=== PATIENT | male | born 1940 | race Native Hawaiian/Other Pacific Islander ===

== ENCOUNTER 2017-06-12 12:07 | Observation (INO) | payer MEDICAID ==
[2017-06-12 12:20] VITALS: BMI 24.3
[2017-06-12 13:15] LABS: BASO # 0.1 K/uL (0.0-0.2); BASO % 1.1 % (0.0-2.0); EOS # 0.3 K/uL (0.0-0.7); EOS % 2.8 % (0.0-4.0); LYMPH # 1.3 K/uL (1.0-4.3); LYMPH % 12.3 % (20.0-40.0); MEAN CORPUSCULAR HEMOGLOBIN 32.1 pg (27.0-31.0); MEAN CORPUSCULAR HGB CONC 34.5 g/dL (33.0-37.0); MEAN PLATELET VOLUME 8.6 fL (7.2-11.7); MONO # 1.2 K/uL (0.0-0.8); MONO % 11.3 % (0.0-10.0); NEUT # 7.9 K/uL (1.8-7.0); NEUT % 72.5 % (50.0-75.0); RBC 3.12 Mil/uL (4.40-5.90); RED CELL DISTRIBUTION WIDTH 16.1 % (11.5-14.5); WHITE BLOOD COUNT 10.9 K/uL (4.8-10.8)
[2017-06-12 13:20] LABS: MEAN CELL VOLUME 93.1 fL (80.0-94.0)
[2017-06-12 13:23] LABS: PROTHROMBIN TIME 10.8 SECONDS (9.7-12.2)
[2017-06-12 13:43] LABS: TROPONIN I 0.017 ng/mL (0.00-0.120)
[2017-06-12 13:44] LABS: ALBUMIN 3.5 g/dL (3.5-5.0); CALCIUM 8.9 mg/dl (8.6-10.4)
--- NOTE | 2017-06-12 14:07 | CT ---
PROCEDURE: CT HEAD WITHOUT CONTRAST. HISTORY: Dizziness COMPARISON: None available. TECHNIQUE: Axial computed tomography images were obtained through the head/brain without intravenous contrast. Radiation dose: Total exam DLP = 871.48 mGy-cm. This CT exam was performed using one or more of the following dose reduction techniques: Automated exposure control, adjustment of the mA and/or kV according to patient size, and/or use of iterative reconstruction technique. FINDINGS: HEMORRHAGE: No intracranial hemorrhage. 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 There are severe chronic microangiopathic changes. There is no mass, mass effect or abnormal extra-axial fluid collection.There are coarse atherosclerotic calcifications in the cavernous carotid an vertebral arteries. VENTRICLES: There is mild age-related global parenchymal volume loss and proportionate enlargement of the ventricles and cortical sulci. CALVARIUM: The skull base and calvarium are normal. PARANASAL SINUSES: Predominantly clear. MASTOID AIR CELLS: Predominantly clear. OTHER FINDINGS: None. IMPRESSION: No acute intracranial abnormality. 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
--- NOTE | 2017-06-12 14:12 | RAD ---
PROCEDURE: CHEST RADIOGRAPH, 1 VIEW HISTORY: Chest pain COMPARISON: 08/29/2016. FINDINGS: LUNGS: There is mild pulmonary venous congestion. No focal consolidation. PLEURA: No pneumothorax or pleural fluid seen. CARDIOVASCULAR: There is mild cardiomegaly. Status post CABG. OSSEOUS STRUCTURES: No significant abnormalities. VISUALIZED UPPER ABDOMEN: Normal. OTHER FINDINGS: None. IMPRESSION: Mild cardiomegaly and pulmonary venous congestion. No active pulmonary disease.
--- NOTE | 2017-06-12 14:15 | C.PDOC ---
History Of Present Illness 76 y/o male, w/PMhx of diabetes, HTN, and chronic kidney disease, presents to the ER with family for evaluation of a syncopal episode which occurred while he was eating breakfast in the morning today. Patient states that he is undergoing peritoneal dialysis exchanges. Patient reports that he has SOB. Denies having CP , seizure -like activity, and abdominal pain. Time Seen by Provider: 06/12/17 12:24 Chief Complaint (Nursing): Syncope History Per: Patient History/Exam Limitations: no limitations Onset/Duration Of Symptoms: Hrs Current Symptoms Are (Timing): Gone Severity: Moderate Past Medical History Reviewed: Historical Data, Nursing Documentation, Vital Signs Vital Signs: Last Vital Signs Temp 99 F 06/12/17 12:28 Pulse 68 06/12/17 16:09 Resp 18 06/12/17 16:09 BP 138/64 06/12/17 16:09 Pulse Ox 98 06/12/17 17:46 - Medical History PMH: Diabetes, Fractures (CASTED NO OR), HTN, Hypercholesterolemia, Hypothyroidism, Peripheral Edema, Chronic Kidney Disease (STAGE 4) Surgical History: CABG - [facility] Procedures CYSTOSCOPY NEC (10/13/14) INSERT INDWELLING CATH (10/06/14) TRANSURETHRAL PROSTATECTOMY ([place]) (10/13/14) Family History: States: No Known Family Hx - Social History Hx Tobacco Use: No Hx Alcohol Use: No Hx Substance Use: No - Immunization History Hx Tetanus Toxoid Vaccination: Yes Hx Influenza Vaccination: No Hx Pneumococcal Vaccination: No Review Of Systems Except As Marked, All Systems Reviewed And Found Negative. Constitutional: Negative for: Fever, Chills Gastrointestinal: Negative for: Abdominal Pain Neurological: Positive for: Other (syncope) Physical Exam - Physical Exam Appears: Non-toxic, No Acute Distress Skin: Normal Color, Warm, Dry Head: Atraumatic, Normacephalic Eye(s): bilateral: Normal Inspection Nose: Normal Oral Mucosa: Moist Neck: Supple Chest: Symmetrical Cardiovascular: Rhythm Regular Respiratory: Normal Breath Sounds, No Rales, No Rhonchi, No Wheezing Gastrointestinal/Abdominal: Normal Exam, Soft, No Tenderness, No Guarding, No Rebound, Other (peritoneal catheter in abdominal wall) Neurological/Psych: Oriented x3, Normal Speech ED Course And Treatment - Laboratory Results Result Diagrams: 06/12/17 13:10 06/12/17 13:10 ECG: Interpreted By Me, Viewed By Me ECG Rhythm: Sinus Rhythm Interpretation Of ECG: NSR with 1st degree AV Block, PVC, and RBBB Rate From EC O2 Sat by Pulse Oximetry: 98 (RA) Pulse Ox Interpretation: Normal - Other Rad CXR X-Ray: Viewed By Me, Read By Radiologist Interpretation: PROCEDURE: CHEST RADIOGRAPH, 1 VIEW. HISTORY: Chest pain. COMPARISON: 08/29/2016. FINDINGS: LUNGS: There is mild pulmonary venous congestion. No focal consolidation. PLEURA: No pneumothorax or pleural fluid seen. CARDIOVASCULAR: There is mild cardiomegaly. Status post CABG. OSSEOUS STRUCTURES: No significant abnormalities. VISUALIZED UPPER ABDOMEN: Normal. OTHER FINDINGS: None. IMPRESSION: Mild cardiomegaly and pulmonary venous congestion. No active pulmonary disease. - CT Scan/US CT- Head Other Rad Studies (CT/US): Read By Radiologist, Radiology Report Reviewed CT/US Interpretation: PROCEDURE: CT HEAD WITHOUT CONTRAST. HISTORY: Dizziness. COMPARISON: None available. TECHNIQUE: Axial computed tomography images were obtained through the head/brain without intravenous contrast. Radiation dose: Total exam DLP = 871.48 mGy-cm. This CT exam was performed using one or more of the following dose reduction techniques: Automated exposure control, adjustment of the mA and/or kV according to patient size, and/ or use of iterative reconstruction technique. FINDINGS: HEMORRHAGE: No intracranial hemorrhage. 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 There are severe chronic microangiopathic changes. There is no mass, mass effect or abnormal extra-axial fluid collection.There are coarse atherosclerotic calcifications in the cavernous carotid an vertebral arteries. VENTRICLES: There is mild age-related global parenchymal volume loss and proportionate enlargement of the ventricles and cortical sulci. CALVARIUM: The skull base and calvarium are normal. PARANASAL SINUSES: Predominantly clear. MASTOID AIR CELLS: Predominantly clear. OTHER FINDINGS: None. IMPRESSION: No acute intracranial abnormality. Severe chronic microangiopathic changes and mild age-related global parenchymal volume loss. 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 Medical Decision Making Medical Decision Making: Assessment: Syncope Plan: --Labs --EKG --UA --CT- Head --CXR Updates: Case discussed with Dr. Elizabeth. Patient has been admitted to Telemetry Observation for syncope under Dr. Elizabeth's service. Disposition Discussed With : Eren Elizabeth Doctor Will See Patient In The: Hospital Counseled Patient/Family Regarding: Studies Performed, Diagnosis - Disposition Disposition: HOSPITALIZED Disposition Time: 14:15 Condition: FAIR - Clinical Impression Clinical Impression: Syncope - Scribe Statement The provider has reviewed the documentation as recorded by the Scribe Sabra Ferrell Provider Attestation: All medical record entries made by the Scribe were at my direction and personally dictated by me. I have reviewed the chart and agree that the record accurately reflects my personal performance of the history, physical exam, medical decision making, and the department course for this patient. I have also personally directed, reviewed, and agree with the discharge instructions and disposition.
[2017-06-12 18:20] VITALS: BP 162/71; PULSE 73; RESP 20; TEMP 98.1; O2SAT 97
--- NOTE | 2017-06-12 23:08 | CP.PCM.DIS ---
Provider - Provider Date of Admission: 06/12/17 14:14 Attending physician: Eren Elizabeth MD Hospital Course - Lab Results Lab Results: Most Recent Lab Values WBC 10.9 K/uL (4.8-10.8) H 06/12/17 13:10 RBC 3.12 Mil/uL (4.40-5.90) L 06/12/17 13:10 Hgb 10.0 g/dL (12.0-18.0) L 06/12/17 13:10 Hct 29.0 % (35.0-51.0) L 06/12/17 13:10 MCV 93.1 fL (80.0-94.0) D 06/12/17 13:10 MCH 32.1 pg (27.0-31.0) H 06/12/17 13:10 MCHC 34.5 g/dL (33.0-37.0) 06/12/17 13:10 RDW 16.1 % (11.5-14.5) H 06/12/17 13:10 Plt Count 175 K/uL (130-400) 06/12/17 13:10 MPV 8.6 fL (7.2-11.7) 06/12/17 13:10 Neut % (Auto) 72.5 % (50.0-75.0) 06/12/17 13:10 Lymph % (Auto) 12.3 % (20.0-40.0) L 06/12/17 13:10 [place] % (Auto) 11.3 % (0.0-10.0) H 06/12/17 13:10 Eos % (Auto) 2.8 % (0.0-4.0) 06/12/17 13:10 Baso % (Auto) 1.1 % (0.0-2.0) 06/12/17 13:10 Neut # (Auto) 7.9 K/uL (1.8-7.0) H 06/12/17 13:10 Lymph # (Auto) 1.3 K/uL (1.0-4.3) 06/12/17 13:10 [place] # (Auto) 1.2 K/uL (0.0-0.8) H 06/12/17 13:10 Eos # (Auto) 0.3 K/uL (0.0-0.7) 06/12/17 13:10 Baso # (Auto) 0.1 K/uL (0.0-0.2) 06/12/17 13:10 PT 10.8 SECONDS (9.7-12.2) 06/12/17 13:10 INR 1.0 06/12/17 13:10 APTT 30 SECONDS (21-34) 06/12/17 13:10 Sodium 133 mmol/L (132-148) 06/12/17 13:10 Potassium 3.5 mmol/L (3.6-5.2) L 06/12/17 13:10 Chloride 91 mmol/L (98-107) L 06/12/17 13:10 Carbon Dioxide 24 mmol/L (22-30) 06/12/17 13:10 Anion Gap 22 (10-20) H 06/12/17 13:10 BUN 100 mg/dL (9-20) H* D 06/12/17 13:10 Creatinine 10.0 mg/dL (0.8-1.5) H* 06/12/17 13:10 Est GFR ( Amer) 6 06/12/17 13:10 Est GFR (Non-Af Amer) 5 06/12/17 13:10 POC Glucose (mg/dL) 138 mg/dL (65-110) H 06/12/17 12:26 Random Glucose 136 mg/dL (75-110) H 06/12/17 13:10 Calcium 8.9 mg/dl (8.6-10.4) 06/12/17 13:10 Total Bilirubin 0.6 mg/dL (0.2-1.3) 06/12/17 13:10 AST 29 U/L (17-59) 06/12/17 13:10 ALT 23 U/L (21-72) 06/12/17 13:10 Alkaline Phosphatase 92 U/L (38-126) 06/12/17 13:10 Troponin I 0.0170 ng/mL (0.00-0.120) 06/12/17 13:10 NT-Pro-B Natriuret Pep 5290 pg/mL (0-900) H 06/12/17 13:10 Total Protein 7.1 g/dL (6.3-8.3) 06/12/17 13:10 Albumin 3.5 g/dL (3.5-5.0) 06/12/17 13:10 Globulin 3.5 gm/dL (2.2-3.9) 06/12/17 13:10 Albumin/Globulin Ratio 1.0 (1.0-2.1) 06/12/17 13:10 Lipase 454 U/L (23-300) H 06/12/17 13:10 Discharge Plan - Follow Up Plan Condition: FAIR Disposition: HOME/ ROUTINE Instructions: Syncope (Fainting) Additional Instructions: Seen by Dr. Elizabeth and cleared to go home. Please follow up with primary physician.
--- NOTE | 2017-06-12 23:08 | CP.PCM.HP ---
Past Patient History - Past Medical History & Family History Past Medical History?: Yes - Past Social History Smoking Status: Never Smoked - CARDIAC Hx Hypercholesterolemia: Yes Hx Hypertension: Yes Hx Peripheral Edema: Yes - HEENT Hx HEENT Problems: Yes Hx Cataracts: Yes - RENAL Hx Chronic Kidney Disease: Yes (STAGE 4) - ENDOCRINE/METABOLIC Hx Hypothyroidism: Yes - MUSCULOSKELETAL/RHEUMATOLOGICAL Hx Fractures: Yes (CASTED NO OR) - GENITOURINARY/GYNECOLOGICAL Hx Genitourinary Disorders: Yes Hx Prostate Problems: Yes (BPH) Other/Comment: URINARY RETENTION - PSYCHIATRIC Hx Substance Use: No - SURGICAL HISTORY Hx Coronary Artery Bypass Graft: Yes - ANESTHESIA Hx Anesthesia: Yes Hx Anesthesia Reactions: No Hx Malignant Hyperthermia: No Meds Allergies/Adverse Reactions: Allergies Allergy/AdvReac Type Severity Reaction Status Date / Time No Known Allergies Allergy Verified 09/30/14 11:17 Results - Vital Signs Recent Vital Signs: Last Vital Signs Temp 98.1 F 06/12/17 18:18 Pulse 73 06/12/17 18:18 Resp 20 06/12/17 18:18 BP 162/71 H 06/12/17 18:18 Pulse Ox 97 06/12/17 18:18 - Labs Result Diagrams: 06/12/17 13:10 06/12/17 13:10 Labs: Laboratory Results - last 24 hr 06/12/17 06/12/17 06/12/17 12:25 12:26 13:10 WBC 10.9 H RBC 3.12 L Hgb 10.0 L Hct 29.0 L MCV 93.1 D MCH 32.1 H MCHC 34.5 RDW 16.1 H Plt Count 175 MPV 8.6 Neut % (Auto) 72.5 Lymph % (Auto) 12.3 L [place] % (Auto) 11.3 H Eos % (Auto) 2.8 Baso % (Auto) 1.1 Neut # (Auto) 7.9 H Lymph # (Auto) 1.3 [place] # (Auto) 1.2 H Eos # (Auto) 0.3 Baso # (Auto) 0.1 PT INR APTT Sodium Potassium Chloride Carbon Dioxide Anion Gap BUN Creatinine Est GFR ( Amer) Est GFR (Non-Af Amer) POC Glucose (mg/dL) 124 H 138 H Random Glucose Calcium Total Bilirubin AST ALT Alkaline Phosphatase Troponin I NT-Pro-B Natriuret Pep Total Protein Albumin Globulin Albumin/Globulin Ratio Lipase 06/12/17 06/12/17 13:10 13:10 WBC RBC Hgb Hct MCV MCH MCHC RDW Plt Count MPV Neut % (Auto) Lymph % (Auto) [place] % (Auto) Eos % (Auto) Baso % (Auto) Neut # (Auto) Lymph # (Auto) [place] # (Auto) Eos # (Auto) Baso # (Auto) PT 10.8 INR 1.0 APTT 30 Sodium 133 Potassium 3.5 L Chloride 91 L Carbon Dioxide 24 Anion Gap 22 H BUN 100 H* D Creatinine 10.0 H* Est GFR ( Amer) 6 Est GFR (Non-Af Amer) 5 POC Glucose (mg/dL) Random Glucose 136 H Calcium 8.9 Total Bilirubin 0.6 AST 29 ALT 23 Alkaline Phosphatase 92 Troponin I 0.0170 NT-Pro-B Natriuret Pep 5290 H Total Protein 7.1 Albumin 3.5 Globulin 3.5 Albumin/Globulin Ratio 1.0 Lipase 454 H
--- NOTE | 2017-06-13 23:11 | CARD ---
APPROVED REPORT EKG Measurement Heart [id number] <Conclusion> Sinus rhythm with 1st degree AV block with premature atrial complexes in a pattern of bigeminy Possible Left atrial enlargement Right bundle branch block Inferior infarct, age undetermined cannot be excluded Abnormal ECG
== END 2017-06-12 19:44 | disposition home or self-care (01) ==
LOC: C.ER 12:07 → C.9E 14:14 → C.5S 14:14
PROVIDERS: ADMIT Internal Medicine; ATTEND Internal Medicine
DX: R55 Syncope and collapse (principal); E11.22 Type 2 diabetes mellitus with diabetic chronic kidney disease; E78.00 Pure hypercholesterolemia, unspecified; I12.9 Hypertensive chronic kidney disease with stage 1 through stage 4 chronic kidney disease, or unspecified chronic kidney disease; N18.4 Chronic kidney disease, stage 4 (severe); N40.1 Benign prostatic hyperplasia with lower urinary tract symptoms; R33.8 Other retention of urine; Z95.1 Presence of aortocoronary bypass graft; E03.9 Hypothyroidism, unspecified
CPT/HCPCS: 70450; 71045; 80053; 82948; 83690; 83880; 84484; 85025; 85610; 85730; 93005; 99285; G0378

== ENCOUNTER 2017-06-24 12:59 | Inpatient (IN) | payer MEDICAID ==
[2017-06-24 12:59] VITALS: BMI 24.3
[2017-06-24 14:11] LABS: BASO # 0.1 K/uL (0.0-0.2); BASO % 0.8 % (0.0-2.0); EOS # 0.3 K/uL (0.0-0.7); EOS % 2.4 % (0.0-4.0); HEMOGLOBIN 9.7 g/dL (12.0-18.0); LYMPH # 1.8 K/uL (1.0-4.3); LYMPH % 14.6 % (20.0-40.0); MEAN CELL VOLUME 92.8 fL (80.0-94.0); MEAN CORPUSCULAR HEMOGLOBIN 31.9 pg (27.0-31.0); MEAN CORPUSCULAR HGB CONC 34.3 g/dL (33.0-37.0); MEAN PLATELET VOLUME 8.3 fL (7.2-11.7); MONO # 1.6 K/uL (0.0-0.8); MONO % 12.9 % (0.0-10.0); NEUT # 8.4 K/uL (1.8-7.0); NEUT % 69.3 % (50.0-75.0); NRBC % 0.1 % (0.0-2.0); RBC 3.06 Mil/uL (4.40-5.90); RED CELL DISTRIBUTION WIDTH 16.1 % (11.5-14.5); WHITE BLOOD COUNT 12.1 K/uL (4.8-10.8)
[2017-06-24 14:21] LABS: INR 1.1; PROTHROMBIN TIME 11.7 SECONDS (9.7-12.2)
--- NOTE | 2017-06-24 14:25 | RAD ---
PROCEDURE: CHEST RADIOGRAPH, 1 VIEW HISTORY: chest pain COMPARISON: 06/12/2017 FINDINGS: LUNGS: Clear. PLEURA: No pneumothorax or pleural fluid seen. CARDIOVASCULAR: Normal heart size. Sternotomy wires. No congestive change. OSSEOUS STRUCTURES: No significant abnormalities. VISUALIZED UPPER ABDOMEN: Normal. OTHER FINDINGS: None. IMPRESSION: No active disease.
[2017-06-24 14:34] LABS: TROPONIN I 0.057 ng/mL (0.00-0.120)
[2017-06-24 14:36] LABS: ALBUMIN 3.5 g/dL (3.5-5.0); CALCIUM 9.1 mg/dl (8.6-10.4)
[2017-06-24] MEDS ORDERED: Glucagon Recombinant 1 mg Inj IV STA (14:36)
[2017-06-24] MEDS ORDERED: Glucagon Recombinant 1 mg Inj ONE (15:15)
--- NOTE | 2017-06-24 20:38 | CP.PCM.HP ---
History of Present Illness - History of Present Illness History of Present Illness: Chief complaint: weakness History present illness: 74-year-old male with history of diabetes, hypertension, hypercholesteremia, hypothyroidism, history of bronchitis, CAD, status post coronary artery bypass grafting came to the office for a routine visit. Pt was feeling weak for 2 days. recently hospitalized with syncope a week ago and at that time pt was having 1* av block. He came to office last week and c/o some weak and malaise and cough. But at that time vitals were normal in my office There was a change in the solution for HD recently But today this am pt was not able to get up from bed and felt very weak and daughter noticed that he was looking like very sick and called ambulance. In Ed noticed to have complete heart block and atropine and glucogan given but no response. pt takes coreg 6.25mg bid recently his bp also not controlled well and same as blood sugar. 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 meds noted Review of systems: Patient does not have any headache or visual symptoms, no chest pain c.o some cough and yellow mucous no fever no chills no nausea but poorly eating weakness mild sob noted no leg swelling still makes urine On examination: HEENT PERRLA, neck supple No thyromegaly was noted and no cervical adenopathy noted Chest bilateral good air entry, no wheezing or rales noted CVS regular heart sound, no murmur Abdomen soft and no organomegaly Extremities no pedal edema, no leg swelling, pedal pulses are good. 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 CBAG *3 CAD. History renal insufficiency on PD admitted with complete heart block seen by EP for pacemaker renal eval for PD DVT and GI prophylaxis spoke to daughter pt understands ICU monitoring and consult will f/u Present on Admission - Present on Admission Any Indicators Present on Admission: No History of DVT/PE: No History of Uncontrolled Diabetes: No Urinary Catheter: No Decubitus Ulcer Present: No Past Patient History - Past Medical History & Family History Past Medical History?: Yes - Past Social History Smoking Status: Never Smoked - CARDIAC Hx Hypercholesterolemia: Yes Hx Hypertension: Yes Hx Peripheral Edema: Yes - HEENT Hx HEENT Problems: Yes Hx Cataracts: Yes - RENAL Hx Chronic Kidney Disease: Yes (STAGE 4) Other/Comment: PERITONEAL HD - ENDOCRINE/METABOLIC Hx Hypothyroidism: Yes - MUSCULOSKELETAL/RHEUMATOLOGICAL Hx Fractures: Yes (CASTED NO OR) - GENITOURINARY/GYNECOLOGICAL Hx Genitourinary Disorders: Yes Hx Prostate Problems: Yes (BPH) Other/Comment: URINARY RETENTION - PSYCHIATRIC Hx Substance Use: No - SURGICAL HISTORY Hx Coronary Artery Bypass Graft: Yes - ANESTHESIA Hx Anesthesia: Yes Hx Anesthesia Reactions: No Hx Malignant Hyperthermia: No Meds Allergies/Adverse Reactions: Allergies Allergy/AdvReac Type Severity Reaction Status Date / Time No Known Allergies Allergy Verified 06/24/17 13:16 Results - Vital Signs Recent Vital Signs: Last Vital Signs Temp 98.7 F 06/24/17 13:13 Pulse 41 L 06/24/17 18:00 Resp 20 06/24/17 18:00 BP 161/59 H 06/24/17 18:00 Pulse Ox 96 06/24/17 18:00 - Labs Result Diagrams: 06/24/17 14:02 06/24/17 14:02 Labs: Laboratory Results - last 24 hr 06/24/17 06/24/17 06/24/17 14:02 14:02 14:02 WBC 12.1 H RBC 3.06 L Hgb 9.7 L Hct 28.4 L MCV 92.8 MCH 31.9 H MCHC 34.3 RDW 16.1 H Plt Count 217 MPV 8.3 Neut % (Auto) 69.3 Lymph % (Auto) 14.6 L [place] % (Auto) 12.9 H Eos % (Auto) 2.4 Baso % (Auto) 0.8 Neut # (Auto) 8.4 H Lymph # (Auto) 1.8 [place] # (Auto) 1.6 H Eos # (Auto) 0.3 Baso # (Auto) 0.1 PT 11.7 INR 1.1 APTT 32 Sodium 134 Potassium 3.7 Chloride 90 L Carbon Dioxide 28 Anion Gap 20 BUN 102 H* Creatinine 10.3 H* Est GFR ( Amer) 6 Est GFR (Non-Af Amer) 5 Random Glucose 166 H Calcium 9.1 Magnesium 2.5 H Total Bilirubin 0.7 AST 74 H D ALT 106 H D Alkaline Phosphatase 116 Troponin I 0.0570 NT-Pro-B Natriuret Pep 07950 H Total Protein 7.2 Albumin 3.5 Globulin 3.7 Albumin/Globulin Ratio 1.0 Assessment & Plan (1) Heart block AV complete Status: Acute (2) Syncope Status: Acute
--- NOTE | 2017-06-24 21:01 | C.PDOC ---
History Of Present Illness 76 y/o male with history of HTN and peritoneal dialysis brought to ED from Home with c/o worsening weakness and mild dyspnea. Upon arrival patient had EKG that showed 3rd degree heart block. Patient denies fever. HPI limited secondary to patient being a poor historian. Time Seen by Provider: 06/24/17 13:38 Chief Complaint (Nursing): Weakness/Neurological Deficit History Per: Patient, EMS History/Exam Limitations: clinical condition Onset/Duration Of Symptoms: Hrs Current Symptoms Are (Timing): Still Present Past Medical History Reviewed: Historical Data, Nursing Documentation, Vital Signs Vital Signs: Last Vital Signs Temp 98.6 F 06/27/17 06:00 Pulse 84 06/27/17 08:49 Resp 21 06/27/17 08:49 BP 163/67 H 06/27/17 08:49 Pulse Ox 93 L 06/27/17 08:49 - Medical History PMH: Diabetes, Fractures (CASTED NO OR), HTN, Hypercholesterolemia, Hypothyroidism, Peripheral Edema, Chronic Kidney Disease (STAGE 4) Surgical History: CABG - [facility] Procedures CYSTOSCOPY NEC (10/13/14) INSERT INDWELLING CATH (10/06/14) TRANSURETHRAL PROSTATECTOMY ([place]) (10/13/14) Family History: States: No Known Family Hx - Social History Hx Tobacco Use: No Hx Alcohol Use: No Hx Substance Use: No - Immunization History Hx Tetanus Toxoid Vaccination: Yes Hx Influenza Vaccination: No Hx Pneumococcal Vaccination: No Review Of Systems Constitutional: Negative for: Fever, Chills Cardiovascular: Negative for: Chest Pain Gastrointestinal: Negative for: Nausea, Vomiting Skin: Negative for: Rash Neurological: Positive for: Weakness. Negative for: Dizziness Physical Exam - Physical Exam Appears: Non-toxic, No Acute Distress Skin: Warm, Dry Head: Atraumatic, Normacephalic Eye(s): bilateral: Normal Inspection Oral Mucosa: Moist Cardiovascular: Rhythm Regular, Other (bradycardic) Respiratory: Rales (bilateral bases), No Rhonchi, No Wheezing Gastrointestinal/Abdominal: Soft, No Tenderness, No Guarding, No Rebound, Other (Peritoneal dialysis in place ) Extremity: Normal ROM, No Pedal Edema, Capillary Refill (<2 seconds) Neurological/Psych: Oriented x3, Normal Speech, Normal Cognition ED Course And Treatment - Laboratory Results Result Diagrams: 06/27/17 05:59 06/27/17 06:02 ECG: Interpreted By Me, Viewed By Me ECG Rhythm: Sinus Bradycardia, 3rd Degree HB Rate From EC (BPM) O2 Sat by Pulse Oximetry: 96 (RA) Critical Care Time - Critical Care Note Total Time (in mins): 180 Documented critical care: time excludes all time spent performing seperately billable procedures. Medical Decision Making Medical Decision Making: Progress: Upon arrival pt had Atropine tried without success Glucagon was then tried without success D/w Dr. Elizabeth D/w Dr. Valencia who came to ED and evaluated patient at bedside, admit patient for permanent pacemaker placement tomorrow Patient blood pressure remained stable though ED course Patient accepted to ICU Disposition - Disposition Disposition: HOSPITALIZED Disposition Time: 05:00 Condition: CRITICAL - Clinical Impression Clinical Impression: Heart block, Heart block AV complete - Scribe Statement The provider has reviewed the documentation as recorded by the Scribe Radha Seth All medical record entries made by the Scribe were at my direction and personally dictated by me. I have reviewed the chart and agree that the record accurately reflects my personal performance of the history, physical exam, medical decision making, and the department course for this patient. I have also personally directed, reviewed, and agree with the discharge instructions and disposition. Decision To Admit - Pt Status Changed To: Hospital Disposition Of: Inpatient - Admit Certification Admit to Inpatient:: After my assessment, the patient will require hospitalization for at least two midnights. This is because of the severity of symptoms shown, intensity of services needed, and/or the medical risk in this patient being treated as an outpatient. - InPatient: Physician Admission Certification: I certify that this patient requires 2 or more midnights of care for the following reason:: needs pacemaker - . Bed Request Type: ICU Admitting Physician: Eren Elizabeth Patient Diagnosis: Heart block, Heart block AV complete
[2017-06-24] MEDS: (Novolin R) Insulin Human Regular 100 units/ml vial SC SCH (21:24)
[2017-06-24] MEDS ORDERED: Home Med 1 UNIT (Atorvastatin Calcium [Atorvastatin Calcium] 20 MG) PO SCH (22:00)
--- NOTE | 2017-06-24 23:02 | CP.PCM.CON ---
History of Present Illness - History of Present Illness History of Present Illness: 74yo M. 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 p/w weakness secondary to symptomatic bradycardia from 3rd degree AV block. REceieve glucagon in the ED, with no effect, most likely not drug toxicity. Review of Systems - Review of Systems All systems: reviewed and no additional remarkable complaints except (no complaints) Past Patient History - Past Medical History & Family History Past Medical History?: Yes - Past Social History Smoking Status: Never Smoked - CARDIAC Hx Hypercholesterolemia: Yes Hx Hypertension: Yes Hx Peripheral Edema: Yes - HEENT Hx HEENT Problems: Yes Hx Cataracts: Yes - RENAL Hx Chronic Kidney Disease: Yes (STAGE 4) - ENDOCRINE/METABOLIC Hx Hypothyroidism: Yes - MUSCULOSKELETAL/RHEUMATOLOGICAL Hx Fractures: Yes (CASTED NO OR) - GENITOURINARY/GYNECOLOGICAL Hx Genitourinary Disorders: Yes Hx Prostate Problems: Yes (BPH) Other/Comment: URINARY RETENTION - PSYCHIATRIC Hx Substance Use: No - SURGICAL HISTORY Hx Coronary Artery Bypass Graft: Yes - ANESTHESIA Hx Anesthesia: Yes Hx Anesthesia Reactions: No Hx Malignant Hyperthermia: No Meds Allergies/Adverse Reactions: Allergies Allergy/AdvReac Type Severity Reaction Status Date / Time No Known Allergies Allergy Verified 06/24/17 13:16 - Medications Medications: Current Medications Albuterol/Ipratropium (Duoneb 3 Mg/0.5 Mg (3 Ml) Ud) 3 ml INH RQ6 [facility] Aspirin (Aspirin Chewable) 81 mg PO DAILY [facility] Insulin Human Regular (Novolin R) 0 unit SC ACHS [facility] PRN Reason: Protocol Last Admin: 06/24/17 21:24 Dose: Not Given Levothyroxine Sodium (Synthroid) 50 mcg PO DAILY@0630 [facility] Pantoprazole Sodium (Protonix Ec Tab) 40 mg PO DAILY [facility] Rosuvastatin Calcium (Crestor) 10 mg PO HS [facility] Last Admin: 06/24/17 21:25 Dose: 10 mg Sodium Bicarbonate (Sodium Bicarbonate Tab) 650 mg PO TID [facility] Tamsulosin HCl (Flomax) 0.4 mg PO DAILY [facility] Vitamin B Complex/Vit C/Folic Acid (Nephro-Lety) 1 tab PO DAILY [facility] Physical Exam - Head Exam Head Exam: ATRAUMATIC, NORMAL INSPECTION, NORMOCEPHALIC - Eye Exam Eye Exam: EOMI, Normal appearance, PERRL - ENT Exam ENT Exam: Mucous Membranes Moist, Normal Exam - Neck Exam Neck exam: Positive for: Normal Inspection - Respiratory Exam Respiratory Exam: Clear to Auscultation Bilateral, NORMAL BREATHING PATTERN - Cardiovascular Exam Cardiovascular Exam: REGULAR RHYTHM - GI/Abdominal Exam GI & Abdominal Exam: Normal Bowel Sounds, Soft. absent: Tenderness - Neurological Exam Neurological exam: Alert, CN II-XII Intact, Oriented x3, Reflexes Normal - Psychiatric Exam Psychiatric exam: Normal Affect, Normal Mood Results - Vital Signs Recent Vital Signs: Last Vital Signs Temp 97.7 F 06/24/17 20:00 Pulse 41 L 06/24/17 22:00 Resp 14 06/24/17 22:00 BP 164/50 H 06/24/17 21:15 Pulse Ox 96 06/24/17 22:25 - Labs Result Diagrams: 06/24/17 14:02 06/24/17 14:02 Labs: Laboratory Results - last 24 hr 06/24/17 06/24/17 06/24/17 14:02 14:02 14:02 WBC 12.1 H RBC 3.06 L Hgb 9.7 L Hct 28.4 L MCV 92.8 MCH 31.9 H MCHC 34.3 RDW 16.1 H Plt Count 217 MPV 8.3 Neut % (Auto) 69.3 Lymph % (Auto) 14.6 L [place] % (Auto) 12.9 H Eos % (Auto) 2.4 Baso % (Auto) 0.8 Neut # (Auto) 8.4 H Lymph # (Auto) 1.8 [place] # (Auto) 1.6 H Eos # (Auto) 0.3 Baso # (Auto) 0.1 PT 11.7 INR 1.1 APTT 32 Sodium 134 Potassium 3.7 Chloride 90 L Carbon Dioxide 28 Anion Gap 20 BUN 102 H* Creatinine 10.3 H* Est GFR ( Amer) 6 Est GFR (Non-Af Amer) 5 POC Glucose (mg/dL) Random Glucose 166 H Calcium 9.1 Magnesium 2.5 H Total Bilirubin 0.7 AST 74 H D ALT 106 H D Alkaline Phosphatase 116 Troponin I 0.0570 NT-Pro-B Natriuret Pep 16585 H Total Protein 7.2 Albumin 3.5 Globulin 3.7 Albumin/Globulin Ratio 1.0 06/24/17 21:16 WBC RBC Hgb Hct MCV MCH MCHC RDW Plt Count MPV Neut % (Auto) Lymph % (Auto) [place] % (Auto) Eos % (Auto) Baso % (Auto) Neut # (Auto) Lymph # (Auto) [place] # (Auto) Eos # (Auto) Baso # (Auto) PT INR APTT Sodium Potassium Chloride Carbon Dioxide Anion Gap BUN Creatinine Est GFR ( Amer) Est GFR (Non-Af Amer) POC Glucose (mg/dL) 131 H Random Glucose Calcium Magnesium Total Bilirubin AST ALT Alkaline Phosphatase Troponin I NT-Pro-B Natriuret Pep Total Protein Albumin Globulin Albumin/Globulin Ratio Assessment & Plan (1) Heart block AV complete Assessment and Plan: 74yo M. 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 p/w weakness secondary to symptomatic bradycardia from 3rd degree AV block. Neuro: alert and oriented Pulm: no acute issues breathing spontaneously on nasal canula oxygen. CV: hmoedynamically stable. Cardiology most likely going to place PPM. Hem: anemia of chronic disease Renal: ESRD on PD, Renal following. Endo: DM type 2, SISS for coverage. Accucheck device is compatible with current dialysate which can cause incorrect fingerstick readings with certain machines. [email or web address]. Hypothyroidism continue levothyroxine. GI: renal diet, NPO after midnight for possible PPM placement. ID: no acute issues DVT proph - heparin sq GI proph - not currently indicated Code status - full code Critical Care Time spent 35 minutes The documented time is cumulative and includes review of patient data/exams/labs /chart review and examination of the patient on rounds and throughout the day; time is exclusive of any procedures or teaching time. Status: Acute
[2017-06-25] MEDS: Levothyroxine 50 MCG TAB PO SCH (05:50)
[2017-06-25] MEDS: Albuterol-Ipratrop 3 mg / 0.5 (3 ml) UD INH SCH ×4 (06:20→19:32)
[2017-06-25 06:25] LABS: BASO # 0.1 K/uL (0.0-0.2); EOS # 0.4 K/uL (0.0-0.7); EOS % 3.4 % (0.0-4.0); HEMOGLOBIN 9.8 g/dL (12.0-18.0); LYMPH # 1.3 K/uL (1.0-4.3); LYMPH % 11.3 % (20.0-40.0); MEAN CELL VOLUME 92.9 fL (80.0-94.0); MEAN CORPUSCULAR HEMOGLOBIN 32.2 pg (27.0-31.0); MEAN CORPUSCULAR HGB CONC 34.6 g/dL (33.0-37.0); MEAN PLATELET VOLUME 8.7 fL (7.2-11.7); MONO # 1.4 K/uL (0.0-0.8); MONO % 12.2 % (0.0-10.0); NEUT % 72.1 % (50.0-75.0); NRBC % 0.1 % (0.0-2.0); RBC 3.04 Mil/uL (4.40-5.90); RED CELL DISTRIBUTION WIDTH 16.6 % (11.5-14.5); WHITE BLOOD COUNT 11.1 K/uL (4.8-10.8)
[2017-06-25 06:30] LABS: PROTHROMBIN TIME 11.3 SECONDS (9.7-12.2)
[2017-06-25 06:48] LABS: ALB/GLOB RATIO 1.1 (1.0-2.1); ALBUMIN 3.3 g/dL (3.5-5.0); CALCIUM 8.6 mg/dl (8.6-10.4)
[2017-06-25 08:38] LABS: BODY FLUID TYPE PERITONEAL/ASCITES
[2017-06-25 09:29] LABS: BF GROSS APPEARANCE CLEAR (CLEAR); BODY FLUID MONO/MACROPHAGE 62 % (0-0); BODY FLUID TOTAL COUNT 100 (0-0)
[2017-06-25] MEDS: (Novolin R) Insulin Human Regular 100 units/ml vial SC SCH ×4 (09:43→21:24)
[2017-06-25] MEDS ORDERED: FOLIC ACID PO SCH (10:00)
[2017-06-25] MEDS ORDERED: VIT B COMPLEX AND C PO SCH (10:00)
[2017-06-25] MEDS: Multivitamin Vitamin B Complex (Nephro-Vite) Tab PO SCH (10:00)
--- NOTE | 2017-06-25 14:26 | CP.PCM.CON ---
History of Present Illness - History of Present Illness History of Present Illness: History present illness: 76-year-old male with history of diabetes, hypertension, hypercholesteremia, hypothyroidism, history of bronchitis, CAD, status post coronary artery bypass grafting seen by PMD for weakness. Pt was feeling weak for 2 days. recently hospitalized with syncope a week ago and at that time pt was having 1 degree av block. Presented last week and c/o some weak and malaise and cough. There was a change in the cycler PD regimen. Maintained on cycler PD at home with daughters help. Today this am pt was not able to get up from bed and felt very weak and daughter noticed that he was looking like very sick and called ambulance. In Ed noticed to have complete heart block and atropine and glucogan given but no response. pt takes coreg 6.25mg bid recently his bp also not controlled well; BSs elevated. 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 Review of Systems - Constitutional Constitutional: Fatigue, Lethargy, Weakness - EENT Eyes: Blurred Vision, Decreased Night Vision Ears: absent: As Per HPI, Decreased Hearing, Ear Discharge, Ear Pain, Tinnitus, Abnormal Hearing, Disequilibrium, Dizziness, Other Nose/Mouth/Throat: absent: As Per HPI, Epistaxis, Nasal Congestion, Nasal Discharge, Nasal Obstruction, Nasal Trauma, Nose Pain, Post Nasal Drip, Sinus Pain, Sinus Pressure, Bleeding Gums, Change in Voice, Dental Pain, Dry Mouth, Dysphagia, Halitosis, Hoarsness, Lip Swelling, Mouth Lesions, Mouth Pain, Odynophagia, Sore Throat, Throat Swelling, Tongue Swelling, Facial Pain, Neck Pain, Neck Mass, Other - Cardiovascular Cardiovascular: Dyspnea on Exertion, Irregular Heart Rhythm, Lightheadedness - Respiratory Respiratory: Cough - Gastrointestinal Gastrointestinal: absent: As Per HPI, Abdominal Pain, Belching, Bloating, Change in Bowel Habits, Change in Stool Character, Coffee Ground Emesis, Constipation, Cramping, Diarrhea, Dyspepsia, Dysphagia, Early Satiety, Excessive Flatus, Fecal Incontinence, Heartburn, Hematemesis, Hematochezia, Loose Stools, Melena, Nausea, Odynophagia, Temesmus, Vomiting, Other - Genitourinary Genitourinary: As Per HPI - Musculoskeletal Musculoskeletal: Muscle Cramps, Muscle Weakness, Myalgias - Integumentary Integumentary: absent: As Per HPI, Acne, Alopecia, Bleeding Lesions, Change in Hair, Change in Nails, Change in Pigmentation, Changing Lesions, Dry Skin, Erythema, Furuncle, Hirsutism, Lesions, New Lesions, Non-Healing Lesions, Photosensitivity, Pruritus, Rash, Skin Pain, Skin Ulcer, Sores, Striae, Swelling , Unusual Bruising, Wounds, Jaundice, Other - Neurological Neurological: Dizziness, Syncope, Weakness Past Patient History - Past Medical History & Family History Past Medical History?: Yes Past Family History: Reviewed and not pertinent - Past Social History Smoking Status: Never Smoked Chewing Tobacco Use: No Cigar Use: No Alcohol: None Drugs: Denies Home Situation {Lives}: With Family - CARDIAC Hx Hypercholesterolemia: Yes Hx Hypertension: Yes Hx Peripheral Edema: Yes - HEENT Hx HEENT Problems: Yes Hx Cataracts: Yes - RENAL Hx Chronic Kidney Disease: Yes (STAGE 4) - ENDOCRINE/METABOLIC Hx Hypothyroidism: Yes - MUSCULOSKELETAL/RHEUMATOLOGICAL Hx Fractures: Yes (CASTED NO OR) - GENITOURINARY/GYNECOLOGICAL Hx Genitourinary Disorders: Yes Hx Prostate Problems: Yes (BPH) Other/Comment: URINARY RETENTION - PSYCHIATRIC Hx Substance Use: No - SURGICAL HISTORY Hx Coronary Artery Bypass Graft: Yes - ANESTHESIA Hx Anesthesia: Yes Hx Anesthesia Reactions: No Hx Malignant Hyperthermia: No Meds Allergies/Adverse Reactions: Allergies Allergy/AdvReac Type Severity Reaction Status Date / Time No Known Allergies Allergy Verified 06/24/17 13:16 - Medications Medications: Current Medications Albuterol/Ipratropium (Duoneb 3 Mg/0.5 Mg (3 Ml) Ud) 3 ml INH RQ6 [facility] Last Admin: 06/25/17 13:32 Dose: 3 ml Aspirin (Aspirin Chewable) 81 mg PO DAILY [facility] Heparin Sodium (Porcine) (Heparin) 5,000 units SC Q12 [facility] Insulin Human Regular (Novolin R) 0 unit SC ACHS [facility] PRN Reason: Protocol Last Admin: 06/25/17 11:53 Dose: Not Given Levothyroxine Sodium (Synthroid) 50 mcg PO DAILY@0630 [facility] Last Admin: 06/25/17 05:50 Dose: 50 mcg Pantoprazole Sodium (Protonix Ec Tab) 40 mg PO DAILY [facility] Rosuvastatin Calcium (Crestor) 10 mg PO HS [facility] Last Admin: 06/24/17 21:25 Dose: 10 mg Sodium Bicarbonate (Sodium Bicarbonate Tab) 650 mg PO TID [facility] Last Admin: 06/25/17 11:53 Dose: Not Given Tamsulosin HCl (Flomax) 0.4 mg PO DAILY [facility] Vitamin B Complex/Vit C/Folic Acid (Nephro-Lety) 1 tab PO DAILY [facility] Physical Exam - Constitutional Appears: No Acute Distress, Chronically Ill - Head Exam Head Exam: ATRAUMATIC, NORMAL INSPECTION - Eye Exam Eye Exam: EOMI, Normal appearance - Neck Exam Neck exam: Positive for: Normal Inspection. Negative for: Tenderness - Respiratory Exam Respiratory Exam: Clear to Auscultation Bilateral, NORMAL BREATHING PATTERN - Cardiovascular Exam Cardiovascular Exam: Irregular Rhythm, +S1 - GI/Abdominal Exam GI & Abdominal Exam: Soft. absent: Tenderness - Extremities Exam Extremities exam: Positive for: normal inspection. Negative for: tenderness - Neurological Exam Neurological exam: Alert, CN II-XII Intact - Skin Skin Exam: Dry, Warm Results - Vital Signs Recent Vital Signs: Last Vital Signs Temp 98.9 F 06/25/17 12:00 Pulse 41 L 06/25/17 12:30 Resp 20 06/25/17 12:30 BP 158/94 H 06/25/17 11:30 Pulse Ox 100 06/25/17 12:30 - Labs Result Diagrams: 06/25/17 06:14 06/25/17 06:15 Labs: Laboratory Results - last 24 hr 06/24/17 06/24/17 06/24/17 14:02 14:02 21:16 WBC RBC Hgb Hct MCV MCH MCHC RDW Plt Count MPV Neut % (Auto) Lymph % (Auto) [place] % (Auto) Eos % (Auto) Baso % (Auto) Neut # (Auto) Lymph # (Auto) [place] # (Auto) Eos # (Auto) Baso # (Auto) PT 11.7 INR 1.1 APTT 32 Sodium 134 Potassium 3.7 Chloride 90 L Carbon Dioxide 28 Anion Gap 20 BUN 102 H* Creatinine 10.3 H* Est GFR ( Amer) 6 Est GFR (Non-Af Amer) 5 POC Glucose (mg/dL) 131 H Random Glucose 166 H Calcium 9.1 Magnesium 2.5 H Total Bilirubin 0.7 AST 74 H D ALT 106 H D Alkaline Phosphatase 116 Troponin I 0.0570 NT-Pro-B Natriuret Pep 17842 H Total Protein 7.2 Albumin 3.5 Globulin 3.7 Albumin/Globulin Ratio 1.0 TSH 3rd Generation Fluid Source Fluid Appearance Fluid WBC Fluid RBC Fluid Tot Cell Count Fluid Neutrophils Fluid Lymphocytes Fld Monocyte/Macrophag Fluid Comment 06/25/17 06/25/17 06/25/17 06:14 06:15 06:15 WBC 11.1 H RBC 3.04 L Hgb 9.8 L Hct 28.2 L MCV 92.9 MCH 32.2 H MCHC 34.6 RDW 16.6 H Plt Count 217 MPV 8.7 Neut % (Auto) 72.1 Lymph % (Auto) 11.3 L [place] % (Auto) 12.2 H Eos % (Auto) 3.4 Baso % (Auto) 1.0 Neut # (Auto) 8.0 H Lymph # (Auto) 1.3 [place] # (Auto) 1.4 H Eos # (Auto) 0.4 Baso # (Auto) 0.1 PT 11.3 INR 1.0 APTT 30 Sodium 131 L Potassium 3.9 Chloride 88 L Carbon Dioxide 27 Anion Gap 20 BUN 97 H Creatinine 9.5 H* Est GFR ( Amer) 7 Est GFR (Non-Af Amer) 5 POC Glucose (mg/dL) Random Glucose 311 H Calcium 8.6 Magnesium Total Bilirubin 0.7 AST 86 H ALT 129 H D Alkaline Phosphatase 113 Troponin I NT-Pro-B Natriuret Pep Total Protein 6.4 Albumin 3.3 L Globulin 3.1 Albumin/Globulin Ratio 1.1 TSH 3rd Generation 1.89 Fluid Source Fluid Appearance Fluid WBC Fluid RBC Fluid Tot Cell Count Fluid Neutrophils Fluid Lymphocytes Fld Monocyte/Macrophag Fluid Comment 06/25/17 06/25/17 06/25/17 07:14 08:36 11:16 WBC RBC Hgb Hct MCV MCH MCHC RDW Plt Count MPV Neut % (Auto) Lymph % (Auto) [place] % (Auto) Eos % (Auto) Baso % (Auto) Neut # (Auto) Lymph # (Auto) [place] # (Auto) Eos # (Auto) Baso # (Auto) PT INR APTT Sodium Potassium Chloride Carbon Dioxide Anion Gap BUN Creatinine Est GFR ( Amer) Est GFR (Non-Af Amer) POC Glucose (mg/dL) 387 H 247 H Random Glucose Calcium Magnesium Total Bilirubin AST ALT Alkaline Phosphatase Troponin I NT-Pro-B Natriuret Pep Total Protein Albumin Globulin Albumin/Globulin Ratio TSH 3rd Generation Fluid Source Peritoneal/ascites Fluid Appearance Clear Fluid WBC 11.0 Fluid RBC 118.0 H Fluid Tot Cell Count 100 H Fluid Neutrophils 25.0 H Fluid Lymphocytes 12.0 H Fld Monocyte/Macrophag 62 H Fluid Comment Assessment & Plan (1) Type 2 diabetes mellitus with diabetic nephropathy Status: Acute (2) ESRD (end stage renal disease) Status: Acute (3) Heart block AV complete Status: Acute - Assessment and Plan (Free Text) Plan: cycler PD await PPM insertion follow lytes closely EPO
[2017-06-25] MEDS ORDERED: HEPARIN-NS 5,000 UNITS/500 ML 5,000 UNIT/500 ML BAG IV ONE (14:38)
[2017-06-25] MEDS ORDERED: Thrombin Topical 20,000 Intl Units Spray Kit TOP ONE (14:39)
[2017-06-25] MEDS ORDERED: ceFAZolin 1 gm in NS 1 GM/100 ML BAG IVPB ONE (15:30)
[2017-06-25] MEDS ORDERED: Lidocaine Hydrochloride 10 ML INJ ONE (15:31)
--- NOTE | 2017-06-25 16:24 | CP.PCM.CON ---
History of Present Illness - History of Present Illness History of Present Illness: Seen and examined in the ER 06.24.17 Re: Complete AV block Mr. Brady was admitted with generalized weakness back pain fatigue syncope and slow heart rates; in the ER was noted to have a complete AV block with normal hemodynamics. In the ER he was administered glucagon which did not materially change the rhythm; of note he was receiving beta blockers; there is no history suggestive of overdose deliberate or otherwise He denied palpitations chest pain and dyspnea Past medical history significant for systemic hypertension diabetes mellitus hyperlipidemia coronary artery disease coronary artery bypass graft surgery ' arrhythmia' 'cardioversion' anticoagulation in [facility] (details were unavailable) Past medical: as above ESRD Hypothyroidism "bronchitis Past surgery: CABG Prostate Right leg fracture No history of smoking Follows up with dr. Reyez; a recent stress test was reportedly negative Exam Afebrile Normal venous pressures Clear lungs ?PMI Variable heart sounds No edema EKG: Sinus cRBBB Right fascicular block Broad complex escape rhythm at 40 beats per minute Labs: noted Past Patient History - Past Medical History & Family History Past Medical History?: Yes Past Family History: Reviewed and not pertinent - Past Social History Smoking Status: Never Smoked Chewing Tobacco Use: No Cigar Use: No Alcohol: None Drugs: Denies Home Situation {Lives}: With Family - CARDIAC Hx Hypercholesterolemia: Yes Hx Hypertension: Yes Hx Peripheral Edema: Yes - HEENT Hx HEENT Problems: Yes Hx Cataracts: Yes - RENAL Hx Chronic Kidney Disease: Yes (STAGE 4) - ENDOCRINE/METABOLIC Hx Hypothyroidism: Yes - MUSCULOSKELETAL/RHEUMATOLOGICAL Hx Fractures: Yes (CASTED NO OR) - GENITOURINARY/GYNECOLOGICAL Hx Genitourinary Disorders: Yes Hx Prostate Problems: Yes (BPH) Other/Comment: URINARY RETENTION - PSYCHIATRIC Hx Substance Use: No - SURGICAL HISTORY Hx Coronary Artery Bypass Graft: Yes - ANESTHESIA Hx Anesthesia: Yes Hx Anesthesia Reactions: No Hx Malignant Hyperthermia: No Meds Allergies/Adverse Reactions: Allergies Allergy/AdvReac Type Severity Reaction Status Date / Time No Known Allergies Allergy Verified 06/24/17 13:16 - Medications Medications: Current Medications Albuterol/Ipratropium (Duoneb 3 Mg/0.5 Mg (3 Ml) Ud) 3 ml INH RQ6 [facility] Last Admin: 06/25/17 13:32 Dose: 3 ml Aspirin (Aspirin Chewable) 81 mg PO DAILY [facility] Epoetin Kumar (Procrit) 10,000 unit SC MWF [facility] Heparin Sodium (Porcine) (Heparin) 5,000 units SC Q12 [facility] Insulin Human Regular (Novolin R) 0 unit SC ACHS [facility] PRN Reason: Protocol Last Admin: 06/25/17 11:53 Dose: Not Given Levothyroxine Sodium (Synthroid) 50 mcg PO DAILY@0630 [facility] Last Admin: 06/25/17 05:50 Dose: 50 mcg Pantoprazole Sodium (Protonix Ec Tab) 40 mg PO DAILY [facility] Rosuvastatin Calcium (Crestor) 10 mg PO HS [facility] Last Admin: 06/24/17 21:25 Dose: 10 mg Sodium Bicarbonate (Sodium Bicarbonate Tab) 650 mg PO TID [facility] Last Admin: 06/25/17 15:08 Dose: Not Given Tamsulosin HCl (Flomax) 0.4 mg PO DAILY [facility] Vitamin B Complex/Vit C/Folic Acid (Nephro-Lety) 1 tab PO DAILY [facility] Results - Vital Signs Recent Vital Signs: Last Vital Signs Temp 98.9 F 06/25/17 12:00 Pulse 48 L 06/25/17 15:00 Resp 14 06/25/17 15:00 BP 160/43 H 06/25/17 14:15 Pulse Ox 97 06/25/17 15:00 - Labs Result Diagrams: 06/25/17 06:14 06/25/17 06:15 Labs: Laboratory Results - last 24 hr 06/24/17 06/25/17 06/25/17 21:16 06:14 06:15 WBC 11.1 H RBC 3.04 L Hgb 9.8 L Hct 28.2 L MCV 92.9 MCH 32.2 H MCHC 34.6 RDW 16.6 H Plt Count 217 MPV 8.7 Neut % (Auto) 72.1 Lymph % (Auto) 11.3 L [place] % (Auto) 12.2 H Eos % (Auto) 3.4 Baso % (Auto) 1.0 Neut # (Auto) 8.0 H Lymph # (Auto) 1.3 [place] # (Auto) 1.4 H Eos # (Auto) 0.4 Baso # (Auto) 0.1 PT 11.3 INR 1.0 APTT 30 Sodium Potassium Chloride Carbon Dioxide Anion Gap BUN Creatinine Est GFR ( Amer) Est GFR (Non-Af Amer) POC Glucose (mg/dL) 131 H Random Glucose Calcium Total Bilirubin AST ALT Alkaline Phosphatase Total Protein Albumin Globulin Albumin/Globulin Ratio TSH 3rd Generation Fluid Source Fluid Appearance Fluid WBC Fluid RBC Fluid Tot Cell Count Fluid Neutrophils Fluid Lymphocytes Fld Monocyte/Macrophag Fluid Comment 06/25/17 06/25/17 06/25/17 06:15 07:14 08:36 WBC RBC Hgb Hct MCV MCH MCHC RDW Plt Count MPV Neut % (Auto) Lymph % (Auto) [place] % (Auto) Eos % (Auto) Baso % (Auto) Neut # (Auto) Lymph # (Auto) [place] # (Auto) Eos # (Auto) Baso # (Auto) PT INR APTT Sodium 131 L Potassium 3.9 Chloride 88 L Carbon Dioxide 27 Anion Gap 20 BUN 97 H Creatinine 9.5 H* Est GFR ( Amer) 7 Est GFR (Non-Af Amer) 5 POC Glucose (mg/dL) 387 H Random Glucose 311 H Calcium 8.6 Total Bilirubin 0.7 AST 86 H ALT 129 H D Alkaline Phosphatase 113 Total Protein 6.4 Albumin 3.3 L Globulin 3.1 Albumin/Globulin Ratio 1.1 TSH 3rd Generation 1.89 Fluid Source Peritoneal/ascites Fluid Appearance Clear Fluid WBC 11.0 Fluid RBC 118.0 H Fluid Tot Cell Count 100 H Fluid Neutrophils 25.0 H Fluid Lymphocytes 12.0 H Fld Monocyte/Macrophag 62 H Fluid Comment 06/25/17 06/25/17 11:16 16:04 WBC RBC Hgb Hct MCV MCH MCHC RDW Plt Count MPV Neut % (Auto) Lymph % (Auto) [place] % (Auto) Eos % (Auto) Baso % (Auto) Neut # (Auto) Lymph # (Auto) [place] # (Auto) Eos # (Auto) Baso # (Auto) PT INR APTT Sodium Potassium Chloride Carbon Dioxide Anion Gap BUN Creatinine Est GFR ( Amer) Est GFR (Non-Af Amer) POC Glucose (mg/dL) 247 H 215 H Random Glucose Calcium Total Bilirubin AST ALT Alkaline Phosphatase Total Protein Albumin Globulin Albumin/Globulin Ratio TSH 3rd Generation Fluid Source Fluid Appearance Fluid WBC Fluid RBC Fluid Tot Cell Count Fluid Neutrophils Fluid Lymphocytes Fld Monocyte/Macrophag Fluid Comment Assessment & Plan - Assessment and Plan (Free Text) Assessment: Mr. Brady was admitted with generalized weakness back pain fatigue syncope and slow heart rates; in the ER was noted to have a complete AV block with normal hemodynamics. In the ER he was administered glucagon which did not materially change the rhythm; of note he was receiving beta blockers; there is no history suggestive of overdose deliberate or otherwise The symptomatic complete AV block persistent for 4 days (per patients 's record); is seemingly permanent (not discounting the use of beta blockers) reflected by prior history of a tachycardia and baseline conduction defect suggestive of the sick sinus syndrome; mechanism is likely degenerative/ischemic Plan: Plan Monitor x 24 hours Possible Pacemaker in am
[2017-06-25] MEDS ORDERED: Midazolam 2 MG/2 ML VIAL ONE (16:28)
--- NOTE | 2017-06-25 16:37 | CP.CCUPN ---
<Missy Gamez - Last Filed: 06/25/17 17:15> CCU Subjective - Physician Review Subjective (Free Text): Patient seen and examined. is at bedside. Patient overall states he is feeling better than he did yesterday. He complains of slight abdominal pain. 06/25/17 16:39 CCU Objective - Vital Signs / Intake & Output Vital Signs (Last 4 hours): Vital Signs Pulse Resp BP Pulse Ox 06/25/17 15:00 48 L 14 97 06/25/17 14:30 50 L 21 99 06/25/17 14:15 48 L 22 160/43 H 97 06/25/17 14:00 41 L 20 98 06/25/17 13:15 46 L 22 157/53 H 99 06/25/17 13:00 48 L 20 151/48 H 95 Intake and Output (Last 8hrs): Intake & Output 06/25/17 06/25/17 06/25/17 06:59 14:59 22:59 Intake Total 50 0 0 Output Total 0 0 0 Balance 50 0 0 Weight 171 lb 8 oz Intake: Oral 50 0 0 Output: Urine 0 0 0 Urine, Voided 0 0 0 - Physical Exam Head: Positive for: Atraumatic, Normocephalic Extroacular Muscles: Positive for: EOMI Conjunctiva: Positive for: Normal Respiratory/Chest: Positive for: Clear to Auscultation. Negative for: Accessory Muscle Use, Wheezes Cardiovascular: Positive for: Normal S1, S2, Bradycardic Abdomen: Positive for: Normal Bowel Sounds. Negative for: Tenderness - Medications Active Medications: Active Medications Generic Name Dose Route Start Last Admin Trade Name Sabrina PRN Reason Stop Dose Admin Albuterol/Ipratropium 3 ml 06/25/17 02:00 06/25/17 13:32 Duoneb 3 Mg/0.5 Mg (3 Ml) Ud INH 3 ml RQ6 JAYLA Administration Aspirin 81 mg 06/25/17 10:00 Aspirin Chewable PO DAILY [facility] Epoetin Kumar 10,000 unit 06/27/17 09:00 Procrit SC MWF [facility] Heparin Sodium (Porcine) 5,000 units 06/25/17 13:15 Heparin SC Q12 [facility] Insulin Human Regular 0 unit 06/24/17 22:00 06/25/17 11:53 Novolin R SC Not Given ACHS [facility] Protocol Levothyroxine Sodium 50 mcg 06/25/17 06:30 06/25/17 05:50 Synthroid PO 50 mcg DAILY@0630 JAYLA Administration Pantoprazole Sodium 40 mg 06/25/17 10:00 Protonix Ec Tab PO DAILY JAYLA Rosuvastatin Calcium 10 mg 06/24/17 22:00 06/24/17 21:25 Crestor PO 10 mg HS JAYLA Administration Sodium Bicarbonate 650 mg 06/25/17 10:00 06/25/17 15:08 Sodium Bicarbonate Tab PO Not Given TID JAYLA Tamsulosin HCl 0.4 mg 06/25/17 10:00 Flomax PO DAILY [facility] Vitamin B Complex/Vit C/Folic Acid 1 tab 06/25/17 10:00 Nephro-Lety PO DAILY JAYLA - Patient Studies Lab Studies: Lab Studies 06/25/17 06/25/17 06/25/17 Range/Units 16:04 11:16 08:36 WBC (4.8-10.8) K/uL RBC (4.40-5.90) Mil/uL Hgb (12.0-18.0) g/dL Hct (35.0-51.0) % MCV (80.0-94.0) fL MCH (27.0-31.0) pg MCHC (33.0-37.0) g/dL RDW (11.5-14.5) % Plt Count (130-400) K/uL MPV (7.2-11.7) fL Neut % (Auto) (50.0-75.0) % Lymph % (Auto) (20.0-40.0) % [place] % (Auto) (0.0-10.0) % Eos % (Auto) (0.0-4.0) % Baso % (Auto) (0.0-2.0) % Neut # (Auto) (1.8-7.0) K/uL Lymph # (Auto) (1.0-4.3) K/uL [place] # (Auto) (0.0-0.8) K/uL Eos # (Auto) (0.0-0.7) K/uL Baso # (Auto) (0.0-0.2) K/uL PT (9.7-12.2) SECONDS INR APTT (21-34) SECONDS Sodium (132-148) mmol/L Potassium (3.6-5.2) mmol/L Chloride (98-107) mmol/L Carbon Dioxide (22-30) mmol/L Anion Gap (10-20) BUN (9-20) mg/dL Creatinine (0.8-1.5) mg/dL Est GFR ( Amer) Est GFR (Non-Af Amer) POC Glucose (mg/dL) 215 H 247 H (65-110) mg/dL Random Glucose (75-110) mg/dL Calcium (8.6-10.4) mg/dl Total Bilirubin (0.2-1.3) mg/dL AST (17-59) U/L ALT (21-72) U/L Alkaline Phosphatase (38-126) U/L Total Protein (6.3-8.3) g/dL Albumin (3.5-5.0) g/dL Globulin (2.2-3.9) gm/dL Albumin/Globulin Ratio (1.0-2.1) TSH 3rd Generation (0.46-4.68) mIU/L Fluid Source Peritoneal/ascites Fluid Appearance Clear (CLEAR) Fluid WBC 11.0 (0.0-300.0) /mm3 Fluid RBC 118.0 H (0.0-0.0) /mm3 Fluid Tot Cell Count 100 H (0-0) Fluid Neutrophils 25.0 H (0-0) % Fluid Lymphocytes 12.0 H (0-0) % Fld Monocyte/Macrophag 62 H (0-0) % Fluid Comment 06/25/17 06/25/17 06/25/17 Range/Units 07:14 06:15 06:15 WBC (4.8-10.8) K/uL RBC (4.40-5.90) Mil/uL Hgb (12.0-18.0) g/dL Hct (35.0-51.0) % MCV (80.0-94.0) fL MCH (27.0-31.0) pg MCHC (33.0-37.0) g/dL RDW (11.5-14.5) % Plt Count (130-400) K/uL MPV (7.2-11.7) fL Neut % (Auto) (50.0-75.0) % Lymph % (Auto) (20.0-40.0) % [place] % (Auto) (0.0-10.0) % Eos % (Auto) (0.0-4.0) % Baso % (Auto) (0.0-2.0) % Neut # (Auto) (1.8-7.0) K/uL Lymph # (Auto) (1.0-4.3) K/uL [place] # (Auto) (0.0-0.8) K/uL Eos # (Auto) (0.0-0.7) K/uL Baso # (Auto) (0.0-0.2) K/uL PT 11.3 (9.7-12.2) SECONDS INR 1.0 APTT 30 (21-34) SECONDS Sodium 131 L (132-148) mmol/L Potassium 3.9 (3.6-5.2) mmol/L Chloride 88 L (98-107) mmol/L Carbon Dioxide 27 (22-30) mmol/L Anion Gap 20 (10-20) BUN 97 H (9-20) mg/dL Creatinine 9.5 H* (0.8-1.5) mg/dL Est GFR ( Amer) 7 Est GFR (Non-Af Amer) 5 POC Glucose (mg/dL) 387 H (65-110) mg/dL Random Glucose 311 H (75-110) mg/dL Calcium 8.6 (8.6-10.4) mg/dl Total Bilirubin 0.7 (0.2-1.3) mg/dL AST 86 H (17-59) U/L ALT 129 H D (21-72) U/L Alkaline Phosphatase 113 (38-126) U/L Total Protein 6.4 (6.3-8.3) g/dL Albumin 3.3 L (3.5-5.0) g/dL Globulin 3.1 (2.2-3.9) gm/dL Albumin/Globulin Ratio 1.1 (1.0-2.1) TSH 3rd Generation 1.89 (0.46-4.68) mIU/L Fluid Source Fluid Appearance (CLEAR) Fluid WBC (0.0-300.0) /mm3 Fluid RBC (0.0-0.0) /mm3 Fluid Tot Cell Count (0-0) Fluid Neutrophils (0-0) % Fluid Lymphocytes (0-0) % Fld Monocyte/Macrophag (0-0) % Fluid Comment 06/25/17 06/24/17 Range/Units 06:14 21:16 WBC 11.1 H (4.8-10.8) K/uL RBC 3.04 L (4.40-5.90) Mil/uL Hgb 9.8 L (12.0-18.0) g/dL Hct 28.2 L (35.0-51.0) % MCV 92.9 (80.0-94.0) fL MCH 32.2 H (27.0-31.0) pg MCHC 34.6 (33.0-37.0) g/dL RDW 16.6 H (11.5-14.5) % Plt Count 217 (130-400) K/uL MPV 8.7 (7.2-11.7) fL Neut % (Auto) 72.1 (50.0-75.0) % Lymph % (Auto) 11.3 L (20.0-40.0) % [place] % (Auto) 12.2 H (0.0-10.0) % Eos % (Auto) 3.4 (0.0-4.0) % Baso % (Auto) 1.0 (0.0-2.0) % Neut # (Auto) 8.0 H (1.8-7.0) K/uL Lymph # (Auto) 1.3 (1.0-4.3) K/uL [place] # (Auto) 1.4 H (0.0-0.8) K/uL Eos # (Auto) 0.4 (0.0-0.7) K/uL Baso # (Auto) 0.1 (0.0-0.2) K/uL PT (9.7-12.2) SECONDS INR APTT (21-34) SECONDS Sodium (132-148) mmol/L Potassium (3.6-5.2) mmol/L Chloride (98-107) mmol/L Carbon Dioxide (22-30) mmol/L Anion Gap (10-20) BUN (9-20) mg/dL Creatinine (0.8-1.5) mg/dL Est GFR ( Amer) Est GFR (Non-Af Amer) POC Glucose (mg/dL) 131 H (65-110) mg/dL Random Glucose (75-110) mg/dL Calcium (8.6-10.4) mg/dl Total Bilirubin (0.2-1.3) mg/dL AST (17-59) U/L ALT (21-72) U/L Alkaline Phosphatase (38-126) U/L Total Protein (6.3-8.3) g/dL Albumin (3.5-5.0) g/dL Globulin (2.2-3.9) gm/dL Albumin/Globulin Ratio (1.0-2.1) TSH 3rd Generation (0.46-4.68) mIU/L Fluid Source Fluid Appearance (CLEAR) Fluid WBC (0.0-300.0) /mm3 Fluid RBC (0.0-0.0) /mm3 Fluid Tot Cell Count (0-0) Fluid Neutrophils (0-0) % Fluid Lymphocytes (0-0) % Fld Monocyte/Macrophag (0-0) % Fluid Comment Laboratory Results - last 24 hr 06/24/17 06/25/17 06/25/17 21:16 06:14 06:15 WBC 11.1 H RBC 3.04 L Hgb 9.8 L Hct 28.2 L MCV 92.9 MCH 32.2 H MCHC 34.6 RDW 16.6 H Plt Count 217 MPV 8.7 Neut % (Auto) 72.1 Lymph % (Auto) 11.3 L [place] % (Auto) 12.2 H Eos % (Auto) 3.4 Baso % (Auto) 1.0 Neut # (Auto) 8.0 H Lymph # (Auto) 1.3 [place] # (Auto) 1.4 H Eos # (Auto) 0.4 Baso # (Auto) 0.1 PT 11.3 INR 1.0 APTT 30 Sodium Potassium Chloride Carbon Dioxide Anion Gap BUN Creatinine Est GFR ( Amer) Est GFR (Non-Af Amer) POC Glucose (mg/dL) 131 H Random Glucose Calcium Total Bilirubin AST ALT Alkaline Phosphatase Total Protein Albumin Globulin Albumin/Globulin Ratio TSH 3rd Generation Fluid Source Fluid Appearance Fluid WBC Fluid RBC Fluid Tot Cell Count Fluid Neutrophils Fluid Lymphocytes Fld Monocyte/Macrophag Fluid Comment 05/16/18 05/16/18 05/16/18 06:15 07:14 08:36 WBC RBC Hgb Hct MCV MCH MCHC RDW Plt Count MPV Neut % (Auto) Lymph % (Auto) [place] % (Auto) Eos % (Auto) Baso % (Auto) Neut # (Auto) Lymph # (Auto) [place] # (Auto) Eos # (Auto) Baso # (Auto) PT INR APTT Sodium 131 L Potassium 3.9 Chloride 88 L Carbon Dioxide 27 Anion Gap 20 BUN 97 H Creatinine 9.5 H* Est GFR ( Amer) 7 Est GFR (Non-Af Amer) 5 POC Glucose (mg/dL) 387 H Random Glucose 311 H Calcium 8.6 Total Bilirubin 0.7 AST 86 H ALT 129 H D Alkaline Phosphatase 113 Total Protein 6.4 Albumin 3.3 L Globulin 3.1 Albumin/Globulin Ratio 1.1 TSH 3rd Generation 1.89 Fluid Source Peritoneal/ascites Fluid Appearance Clear Fluid WBC 11.0 Fluid RBC 118.0 H Fluid Tot Cell Count 100 H Fluid Neutrophils 25.0 H Fluid Lymphocytes 12.0 H Fld Monocyte/Macrophag 62 H Fluid Comment 06/25/17 06/25/17 11:16 16:04 WBC RBC Hgb Hct MCV MCH MCHC RDW Plt Count MPV Neut % (Auto) Lymph % (Auto) [place] % (Auto) Eos % (Auto) Baso % (Auto) Neut # (Auto) Lymph # (Auto) [place] # (Auto) Eos # (Auto) Baso # (Auto) PT INR APTT Sodium Potassium Chloride Carbon Dioxide Anion Gap BUN Creatinine Est GFR ( Amer) Est GFR (Non-Af Amer) POC Glucose (mg/dL) 247 H 215 H Random Glucose Calcium Total Bilirubin AST ALT Alkaline Phosphatase Total Protein Albumin Globulin Albumin/Globulin Ratio TSH 3rd Generation Fluid Source Fluid Appearance Fluid WBC Fluid RBC Fluid Tot Cell Count Fluid Neutrophils Fluid Lymphocytes Fld Monocyte/Macrophag Fluid Comment Fingerstick Blood Sugar Results: 247 Review of Systems - Constitutional Constitutional: absent: Fever, Chills - Cardiovascular Cardiovascular: absent: Chest Pain - Respiratory Respiratory: absent: Cough, Dyspnea - Gastrointestinal Gastrointestinal: Abdominal Pain (mild) - Genitourinary Genitourinary: UNREMARKABLE - Neurological Neurological: UNREMARKABLE Critical Care Progress Note - Nutrition Nutrition: Nutrition Category Date Time Status NPO Diet [DIET] Diets 06/25/17 Breakfast Active Assessment/Plan - Assessment and Plan (Free Text) Assessment: 74yo M. 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 p/w weakness secondary to symptomatic bradycardia from 3rd degree AV block. Patient scheduled for Pacemaker Plan: Neuro: alert and oriented Pulm: no acute issues breathing spontaneously on nasal canula oxygen. CV: hmoedynamically stable. Patient to go for permanent pacemaker placement today. Hem: anemia of chronic disease Renal: ESRD on PD, Renal following. Endo: DM type 2, SISS for coverage. Accucheck device is compatible with current dialysate which can cause incorrect fingerstick readings with certain machines. [email or web address]. Hypothyroidism continue levothyroxine. GI: renal diet ID: no acute issues DVT proph - heparin sq GI proph - not currently indicated Code status - full code Patient discussed with ICU Attending Missy Gamez, PGY-1 <Angel Acevedo S - Last Filed: 06/25/17 17:54> CCU Objective - Vital Signs / Intake & Output Vital Signs (Last 4 hours): Vital Signs Pulse Resp BP Pulse Ox 06/25/17 15:00 48 L 14 97 06/25/17 14:30 50 L 21 99 06/25/17 14:15 48 L 22 160/43 H 97 06/25/17 14:00 41 L 20 98 Intake and Output (Last 8hrs): Intake & Output 06/25/17 06/25/17 06/25/17 06:59 14:59 22:59 Intake Total 50 0 10 Output Total 0 0 0 Balance 50 0 10 Weight 171 lb 8 oz Intake: IV 10 Oral 50 0 0 Output: Urine 0 0 0 Urine, Voided 0 0 0 - Medications Active Medications: Active Medications Generic Name Dose Route Start Last Admin Trade Name Freq PRN Reason Stop Dose Admin Albuterol/Ipratropium 3 ml 06/25/17 02:00 06/25/17 13:32 Duoneb 3 Mg/0.5 Mg (3 Ml) Ud INH 3 ml RQ6 JAYLA Administration Aspirin 81 mg 06/25/17 10:00 Aspirin Chewable PO DAILY [facility] Epoetin Kumar 10,000 unit 06/27/17 09:00 Procrit SC MWF [facility] Heparin Sodium (Porcine) 5,000 units 06/25/17 13:15 Heparin SC Q12 [facility] Insulin Human Regular 0 unit 06/24/17 22:00 06/25/17 11:53 Novolin R SC Not Given ACHS [facility] Protocol Levothyroxine Sodium 50 mcg 06/25/17 06:30 06/25/17 05:50 Synthroid PO 50 mcg DAILY@0630 JAYLA Administration Pantoprazole Sodium 40 mg 06/25/17 10:00 Protonix Ec Tab PO DAILY [facility] Rosuvastatin Calcium 10 mg 06/24/17 22:00 06/24/17 21:25 Crestor PO 10 mg HS JAYLA Administration Sodium Bicarbonate 650 mg 06/25/17 10:00 06/25/17 15:08 Sodium Bicarbonate Tab PO Not Given TID JAYLA Tamsulosin HCl 0.4 mg 06/25/17 10:00 Flomax PO DAILY [facility] Vitamin B Complex/Vit C/Folic Acid 1 tab 06/25/17 10:00 Nephro-Lety PO DAILY [facility] - Patient Studies Lab Studies: Lab Studies 06/25/17 06/25/17 06/25/17 Range/Units 16:04 11:16 08:36 WBC (4.8-10.8) K/uL RBC (4.40-5.90) Mil/uL Hgb (12.0-18.0) g/dL Hct (35.0-51.0) % MCV (80.0-94.0) fL MCH (27.0-31.0) pg MCHC (33.0-37.0) g/dL RDW (11.5-14.5) % Plt Count (130-400) K/uL MPV (7.2-11.7) fL Neut % (Auto) (50.0-75.0) % Lymph % (Auto) (20.0-40.0) % [place] % (Auto) (0.0-10.0) % Eos % (Auto) (0.0-4.0) % Baso % (Auto) (0.0-2.0) % Neut # (Auto) (1.8-7.0) K/uL Lymph # (Auto) (1.0-4.3) K/uL [place] # (Auto) (0.0-0.8) K/uL Eos # (Auto) (0.0-0.7) K/uL Baso # (Auto) (0.0-0.2) K/uL PT (9.7-12.2) SECONDS INR APTT (21-34) SECONDS Sodium (132-148) mmol/L Potassium (3.6-5.2) mmol/L Chloride (98-107) mmol/L Carbon Dioxide (22-30) mmol/L Anion Gap (10-20) BUN (9-20) mg/dL Creatinine (0.8-1.5) mg/dL Est GFR ( Amer) Est GFR (Non-Af Amer) POC Glucose (mg/dL) 215 H 247 H (65-110) mg/dL Random Glucose (75-110) mg/dL Calcium (8.6-10.4) mg/dl Total Bilirubin (0.2-1.3) mg/dL AST (17-59) U/L ALT (21-72) U/L Alkaline Phosphatase (38-126) U/L Total Protein (6.3-8.3) g/dL Albumin (3.5-5.0) g/dL Globulin (2.2-3.9) gm/dL Albumin/Globulin Ratio (1.0-2.1) TSH 3rd Generation (0.46-4.68) mIU/L Fluid Source Peritoneal/ascites Fluid Appearance Clear (CLEAR) Fluid WBC 11.0 (0.0-300.0) /mm3 Fluid RBC 118.0 H (0.0-0.0) /mm3 Fluid Tot Cell Count 100 H (0-0) Fluid Neutrophils 25.0 H (0-0) % Fluid Lymphocytes 12.0 H (0-0) % Fld Monocyte/Macrophag 62 H (0-0) % Fluid Comment 06/25/17 06/25/17 06/25/17 Range/Units 07:14 06:15 06:15 WBC (4.8-10.8) K/uL RBC (4.40-5.90) Mil/uL Hgb (12.0-18.0) g/dL Hct (35.0-51.0) % MCV (80.0-94.0) fL MCH (27.0-31.0) pg MCHC (33.0-37.0) g/dL RDW (11.5-14.5) % Plt Count (130-400) K/uL MPV (7.2-11.7) fL Neut % (Auto) (50.0-75.0) % Lymph % (Auto) (20.0-40.0) % [place] % (Auto) (0.0-10.0) % Eos % (Auto) (0.0-4.0) % Baso % (Auto) (0.0-2.0) % Neut # (Auto) (1.8-7.0) K/uL Lymph # (Auto) (1.0-4.3) K/uL [place] # (Auto) (0.0-0.8) K/uL Eos # (Auto) (0.0-0.7) K/uL Baso # (Auto) (0.0-0.2) K/uL PT 11.3 (9.7-12.2) SECONDS INR 1.0 APTT 30 (21-34) SECONDS Sodium 131 L (132-148) mmol/L Potassium 3.9 (3.6-5.2) mmol/L Chloride 88 L (98-107) mmol/L Carbon Dioxide 27 (22-30) mmol/L Anion Gap 20 (10-20) BUN 97 H (9-20) mg/dL Creatinine 9.5 H* (0.8-1.5) mg/dL Est GFR ( Amer) 7 Est GFR (Non-Af Amer) 5 POC Glucose (mg/dL) 387 H (65-110) mg/dL Random Glucose 311 H (75-110) mg/dL Calcium 8.6 (8.6-10.4) mg/dl Total Bilirubin 0.7 (0.2-1.3) mg/dL AST 86 H (17-59) U/L ALT 129 H D (21-72) U/L Alkaline Phosphatase 113 (38-126) U/L Total Protein 6.4 (6.3-8.3) g/dL Albumin 3.3 L (3.5-5.0) g/dL Globulin 3.1 (2.2-3.9) gm/dL Albumin/Globulin Ratio 1.1 (1.0-2.1) TSH 3rd Generation 1.89 (0.46-4.68) mIU/L Fluid Source Fluid Appearance (CLEAR) Fluid WBC (0.0-300.0) /mm3 Fluid RBC (0.0-0.0) /mm3 Fluid Tot Cell Count (0-0) Fluid Neutrophils (0-0) % Fluid Lymphocytes (0-0) % Fld Monocyte/Macrophag (0-0) % Fluid Comment 06/25/17 06/24/17 Range/Units 06:14 21:16 WBC 11.1 H (4.8-10.8) K/uL RBC 3.04 L (4.40-5.90) Mil/uL Hgb 9.8 L (12.0-18.0) g/dL Hct 28.2 L (35.0-51.0) % MCV 92.9 (80.0-94.0) fL MCH 32.2 H (27.0-31.0) pg MCHC 34.6 (33.0-37.0) g/dL RDW 16.6 H (11.5-14.5) % Plt Count 217 (130-400) K/uL MPV 8.7 (7.2-11.7) fL Neut % (Auto) 72.1 (50.0-75.0) % Lymph % (Auto) 11.3 L (20.0-40.0) % [place] % (Auto) 12.2 H (0.0-10.0) % Eos % (Auto) 3.4 (0.0-4.0) % Baso % (Auto) 1.0 (0.0-2.0) % Neut # (Auto) 8.0 H (1.8-7.0) K/uL Lymph # (Auto) 1.3 (1.0-4.3) K/uL [place] # (Auto) 1.4 H (0.0-0.8) K/uL Eos # (Auto) 0.4 (0.0-0.7) K/uL Baso # (Auto) 0.1 (0.0-0.2) K/uL PT (9.7-12.2) SECONDS INR APTT (21-34) SECONDS Sodium (132-148) mmol/L Potassium (3.6-5.2) mmol/L Chloride (98-107) mmol/L Carbon Dioxide (22-30) mmol/L Anion Gap (10-20) BUN (9-20) mg/dL Creatinine (0.8-1.5) mg/dL Est GFR ( Amer) Est GFR (Non-Af Amer) POC Glucose (mg/dL) 131 H (65-110) mg/dL Random Glucose (75-110) mg/dL Calcium (8.6-10.4) mg/dl Total Bilirubin (0.2-1.3) mg/dL AST (17-59) U/L ALT (21-72) U/L Alkaline Phosphatase (38-126) U/L Total Protein (6.3-8.3) g/dL Albumin (3.5-5.0) g/dL Globulin (2.2-3.9) gm/dL Albumin/Globulin Ratio (1.0-2.1) TSH 3rd Generation (0.46-4.68) mIU/L Fluid Source Fluid Appearance (CLEAR) Fluid WBC (0.0-300.0) /mm3 Fluid RBC (0.0-0.0) /mm3 Fluid Tot Cell Count (0-0) Fluid Neutrophils (0-0) % Fluid Lymphocytes (0-0) % Fld Monocyte/Macrophag (0-0) % Fluid Comment Laboratory Results - last 24 hr 06/24/17 06/25/17 06/25/17 21:16 06:14 06:15 WBC 11.1 H RBC 3.04 L Hgb 9.8 L Hct 28.2 L MCV 92.9 MCH 32.2 H MCHC 34.6 RDW 16.6 H Plt Count 217 MPV 8.7 Neut % (Auto) 72.1 Lymph % (Auto) 11.3 L [place] % (Auto) 12.2 H Eos % (Auto) 3.4 Baso % (Auto) 1.0 Neut # (Auto) 8.0 H Lymph # (Auto) 1.3 [place] # (Auto) 1.4 H Eos # (Auto) 0.4 Baso # (Auto) 0.1 PT 11.3 INR 1.0 APTT 30 Sodium Potassium Chloride Carbon Dioxide Anion Gap BUN Creatinine Est GFR ( Amer) Est GFR (Non-Af Amer) POC Glucose (mg/dL) 131 H Random Glucose Calcium Total Bilirubin AST ALT Alkaline Phosphatase Total Protein Albumin Globulin Albumin/Globulin Ratio TSH 3rd Generation Fluid Source Fluid Appearance Fluid WBC Fluid RBC Fluid Tot Cell Count Fluid Neutrophils Fluid Lymphocytes Fld Monocyte/Macrophag Fluid Comment 06/25/17 06/25/17 06/25/17 06:15 07:14 08:36 WBC RBC Hgb Hct MCV MCH MCHC RDW Plt Count MPV Neut % (Auto) Lymph % (Auto) [place] % (Auto) Eos % (Auto) Baso % (Auto) Neut # (Auto) Lymph # (Auto) [place] # (Auto) Eos # (Auto) Baso # (Auto) PT INR APTT Sodium 131 L Potassium 3.9 Chloride 88 L Carbon Dioxide 27 Anion Gap 20 BUN 97 H Creatinine 9.5 H* Est GFR ( Amer) 7 Est GFR (Non-Af Amer) 5 POC Glucose (mg/dL) 387 H Random Glucose 311 H Calcium 8.6 Total Bilirubin 0.7 AST 86 H ALT 129 H D Alkaline Phosphatase 113 Total Protein 6.4 Albumin 3.3 L Globulin 3.1 Albumin/Globulin Ratio 1.1 TSH 3rd Generation 1.89 Fluid Source Peritoneal/ascites Fluid Appearance Clear Fluid WBC 11.0 Fluid RBC 118.0 H Fluid Tot Cell Count 100 H Fluid Neutrophils 25.0 H Fluid Lymphocytes 12.0 H Fld Monocyte/Macrophag 62 H Fluid Comment 06/25/17 06/25/17 11:16 16:04 WBC RBC Hgb Hct MCV MCH MCHC RDW Plt Count MPV Neut % (Auto) Lymph % (Auto) [place] % (Auto) Eos % (Auto) Baso % (Auto) Neut # (Auto) Lymph # (Auto) [place] # (Auto) Eos # (Auto) Baso # (Auto) PT INR APTT Sodium Potassium Chloride Carbon Dioxide Anion Gap BUN Creatinine Est GFR ( Amer) Est GFR (Non-Af Amer) POC Glucose (mg/dL) 247 H 215 H Random Glucose Calcium Total Bilirubin AST ALT Alkaline Phosphatase Total Protein Albumin Globulin Albumin/Globulin Ratio TSH 3rd Generation Fluid Source Fluid Appearance Fluid WBC Fluid RBC Fluid Tot Cell Count Fluid Neutrophils Fluid Lymphocytes Fld Monocyte/Macrophag Fluid Comment Critical Care Progress Note - Nutrition Nutrition: Nutrition Category Date Time Status Renal Diet [DIET] Diets 06/25/17 Dinner Active Attending/Attestation - Attestation I have personally seen and examined this patient.: Yes I have fully participated in the care of the patient.: Yes I have reviewed all pertinent clinical information: Yes Notes (Text): 06/25/17 17:53 patient seen and examined in the intensive care unit. Status post permanent pacemaker placement for complete heart block continue ICU observation for now Continue present treatment
--- NOTE | 2017-06-25 17:47 | PCM.OP ---
Operative Report - Operative Report Date of Surgery/Procedure: 06/25/17 Time of Surgery/Procedure: 17:42 Surgeon: marissa Anesthesia/Sedation: MAC Pre-Operative Diagnosis: complete AV block Post-Operative Diagnosis: complete AV block Indication for Surgery: complete AV block; syncope Operative Findings: Complete AV block Procedure/Operation Description: Mr. Brady was admitted with generalized weakness back pain fatigue syncope and slow heart rates; in the ER was noted to have a complete AV block with normal hemodynamics. In the ER he was administered glucagon which did not materially change the rhythm; of note he was receiving beta blockers; there is no history suggestive of overdose deliberate or otherwise. The symptomatic complete AV block persistent for 4 days (per patients 's record); is seemingly permanent (not discounting the use of beta blockers) reflected by prior history of a tachycardia and baseline conduction defect suggestive of the sick sinus syndrome; mechanism is likely degenerative/ischemic. The left pectoral region was cleansed and prepped in the usual fashion; a 3cm incision was made and a pacemaker pcoket was created 3 cm inferior to the clavicle. Next the axillary vein was accessed and two six lithuanian sheaths placed; and through them a 52 cm and a 46 cm pacing leads were situated in the right ventricular apex and the right atrial appendage. The pace and sense parameters were optimal. Next the sheaths were removed the leads were sutured to the pectoral muscle; next the pocket was cleansed with antibiotics and thrombin; next the st ramiro device was placed in the pocket and connected to the leads; the pocket was closed in layers and the skin was stapled. telfa and tegaderm was placed Estimated Blood Loss: 5 cc Complications: None Discharge & Condition: Stable
[2017-06-25] MEDS: Pantoprazole 40 mg EC Tab PO SCH (18:17)
--- NOTE | 2017-06-25 18:24 | RAD ---
PROCEDURE: Intraoperative Fluoroscopy. HISTORY: THIRD DEGREE HEART BLOCK FINDINGS: Fluoroscopic assistance was provided for pacemaker placement. Please refer to the operative report from TERENCE Cohen, DR MD. Total fluoroscopic time (continuous mode) utilized during the procedure 176.1 (seconds). Total exam DLP: (mGy) 38.25.
--- NOTE | 2017-06-25 18:45 | RAD ---
HISTORY: POST PACEMAKER INSERTION COMPARISON: 06/24/2017 FINDINGS: LUNGS: No active pulmonary disease. PLEURA: No significant pleural effusion identified, no pneumothorax apparent. CARDIOVASCULAR: New permanent pacemaker. Normal heart size. Sternotomy wires. OSSEOUS STRUCTURES: No significant abnormalities. VISUALIZED UPPER ABDOMEN: Normal. OTHER FINDINGS: None. IMPRESSION: New permanent pacemaker. Otherwise unremarkable.
--- NOTE | 2017-06-26 00:17 | PN ---
DATE: 06/24/2017 SUBJECTIVE: The patient is currently feeling better. He is feeling more stronger than yesterday. He received permanent pacemaker for complete heart block without any complications. The patient tolerated the procedure well. Currently, the patient's heat rate is 74 beats per minute. The patient is able to eat well. He is complaining of some constipation, having some difficulty in going to the bathroom. Also having some abdominal pain. No nausea. No vomiting. PHYSICAL EXAMINATION: VITAL SIGNS: Temperature is 98.9, blood pressure is 174/58, respirations 20, saturation is 100%. HEENT: PERRLA. NECK: Supple. CHEST: Bilateral good air entry. No wheezing or rales noted. ABDOMEN: Abdominal distention noted. Peritoneal dialysis catheter present. Currently indwelling fluid in the peritoneal cavity. EXTREMITIES: No pedal edema. PHARMACY BENEFITS COORDINATOR: Alert, awake, and oriented x3. No functional neurological deficit. LABORATORY DATA: The chest x-ray is showing no evidence of any pneumothorax. Pacemaker noted. The patient's labs reviewed, pleural fluid showing evidence of WBC is normal range. No evidence of any infection noted. CBC, hemoglobin 9.8, WBC 11.1. ASSESSMENT AND RECOMMENDATION: Mr. Brady is a 76-year-old male with a history of end-stage renal disease, on peritoneal dialysis, heart disease, hypertension, diabetes, diabetic complication, coronary artery disease, coronary artery bypass grafting, admitted to the hospital with complete heart block, status post pacemaker. We will continue to monitor him closely. The patient is currently suffering from constipation. We will give fleet enema. Physical therapy tomorrow. If he is stable, will be discharged to home tomorrow. Eren Elizabeth MD
[2017-06-26] MEDS: Albuterol-Ipratrop 3 mg / 0.5 (3 ml) UD INH SCH ×4 (01:11→19:29)
[2017-06-26] MEDS: Levothyroxine 50 MCG TAB PO SCH (05:57)
[2017-06-26] MEDS: (Novolin R) Insulin Human Regular 100 units/ml vial SC SCH ×4 (08:00→21:47)
--- NOTE | 2017-06-26 09:30 | CP.PCM.PN ---
Subjective - Date & Time of Evaluation Date of Evaluation: 06/26/17 Time of Evaluation: 09:27 - Subjective Subjective: s/p PPM insertion awake, feels ok HTN worse this AM cycler PD going well Objective - Vital Signs/Intake and Output Vital Signs (last 24 hours): Temp Pulse Resp BP Pulse Ox 98.5 F 93 H 24 160/89 H 100 06/26/17 04:00 06/26/17 07:00 06/26/17 07:00 06/26/17 06:48 06/26/17 07:00 Intake and Output: 06/26/17 06/26/17 06:59 18:59 Intake Total 200 0 Output Total 0 0 Balance 200 0 - Medications Medications: Current Medications Albuterol/Ipratropium (Duoneb 3 Mg/0.5 Mg (3 Ml) Ud) 3 ml INH RQ6 [facility] Last Admin: 06/26/17 07:05 Dose: 3 ml Aspirin (Aspirin Chewable) 81 mg PO DAILY [facility] Last Admin: 06/25/17 18:16 Dose: 81 mg Carvedilol (Coreg) 12.5 mg PO BID [facility] Epoetin Kumar (Procrit) 10,000 unit SC MWF [facility] Heparin Sodium (Porcine) (Heparin) 5,000 units SC Q12 [facility] Insulin Human Regular (Novolin R) 0 unit SC ACHS [facility] PRN Reason: Protocol Last Admin: 06/26/17 08:00 Dose: 10 unit Levothyroxine Sodium (Synthroid) 50 mcg PO DAILY@0630 [facility] Last Admin: 06/26/17 05:57 Dose: 50 mcg Pantoprazole Sodium (Protonix Ec Tab) 40 mg PO DAILY [facility] Last Admin: 06/25/17 18:17 Dose: 40 mg Rosuvastatin Calcium (Crestor) 10 mg PO HS [facility] Last Admin: 06/25/17 21:24 Dose: 10 mg Sodium Bicarbonate (Sodium Bicarbonate Tab) 650 mg PO TID [facility] Last Admin: 06/25/17 18:17 Dose: 650 mg Tamsulosin HCl (Flomax) 0.4 mg PO DAILY [facility] Last Admin: 06/25/17 18:16 Dose: 0.4 mg Vitamin B Complex/Vit C/Folic Acid (Nephro-Lety) 1 tab PO DAILY [facility] Last Admin: 06/25/17 10:00 Dose: Not Given - Labs Labs: 06/25/17 06:14 06/25/17 06:15 PT 11.3 SECONDS (9.7-12.2) 06/25/17 06:15 INR 1.0 06/25/17 06:15 APTT 30 SECONDS (21-34) 06/26/17 06:31 - Constitutional Appears: No Acute Distress, Chronically Ill - Head Exam Head Exam: ATRAUMATIC, NORMAL INSPECTION - Eye Exam Eye Exam: EOMI, Normal appearance - Neck Exam Neck Exam: Normal Inspection. absent: Tenderness - Respiratory Exam Respiratory Exam: Clear to Ausculation Bilateral, NORMAL BREATHING PATTERN - Cardiovascular Exam Cardiovascular Exam: Tachycardia, +S1 - GI/Abdominal Exam GI & Abdominal Exam: Distended, Soft - Extremities Exam Extremities Exam: Normal Inspection. absent: Tenderness - Neurological Exam Neurological Exam: Awake, CN II-XII Intact - Skin Skin Exam: Dry, Warm Assessment and Plan (1) Type 2 diabetes mellitus with diabetic nephropathy Status: Acute (2) ESRD (end stage renal disease) Status: Acute (3) Heart block AV complete Status: Acute - Assessment and Plan (Free Text) Plan: same PD stop bicarb increase carvedilol dose
[2017-06-26] MEDS: Pantoprazole 40 mg EC Tab PO SCH (10:42)
--- NOTE | 2017-06-26 12:56 | CARD ---
APPROVED REPORT EXAM: Two-dimensional and M-mode echocardiogram with Doppler and color Doppler. Other Information Quality : GoodRhythm : INDICATION Cardiac Disease: CAD RISK FACTORS Hypertension Hyperlipidemia Diabetes 2D DIMENSIONS IVSd1.2 (0.7-1.1cm)LVDd5.0 (3.9-5.9cm) PWd1.1 (0.7-1.1cm)LVDs3.2 (2.5-4.0cm) FS (%) 35.5 %LVEF (%)64.7 (>50%) M-Mode DIMENSIONS Left Atrium (MM)3.07 (2.5-4.0cm)Aortic Root3.42 (2.2-3.7cm) Aortic Cusp Exc.2.14 (1.5-2.0cm) Mitral Valve MV E Xvazmwjm705.1cm/sMV A Vntsfrek128.9cm/sE/A ratio1.0 TDI E/Lateral E'0.0E/Medial E'0.0 Tricuspid Valve TR Peak [id number]/sTR Peak [id number] LEFT VENTRICLE There is normal left ventricular wall thickness. The left ventricular function is normal. The left ventricular ejection fraction is within the normal range. There is normal LV segmental wall motion. Transmitral Doppler flow pattern is abnormal. RIGHT VENTRICLE The right ventricle is normal size. ATRIA The left atrium size is normal. The right atrium size is normal. AORTIC VALVE The aortic valve is normal in structure. MITRAL VALVE The mitral valve is normal in structure. TRICUSPID VALVE There is mild tricuspid regurgitation. <Conclusion> Normal LV systolic function. Diastolic dysfunction. Normal chamber size. Mild TR.
[2017-06-26] MEDS: Multivitamin Vitamin B Complex (Nephro-Vite) Tab PO SCH (15:15)
--- NOTE | 2017-06-26 18:06 | CP.PCM.PN ---
Subjective - Date & Time of Evaluation Date of Evaluation: 06/26/17 Time of Evaluation: 18:03 - Subjective Subjective: Patient s/p PPM placement. Has no specific complaints Objective - Vital Signs/Intake and Output Vital Signs (last 24 hours): Temp Pulse Resp BP Pulse Ox 98.9 F 69 21 130/62 100 06/26/17 14:00 06/26/17 17:00 06/26/17 17:00 06/26/17 16:18 06/26/17 17:00 Intake and Output: 06/26/17 06/26/17 06:59 18:59 Intake Total 200 480 Output Total 0 0 Balance 200 480 - Medications Medications: Current Medications Albuterol/Ipratropium (Duoneb 3 Mg/0.5 Mg (3 Ml) Ud) 3 ml INH RQ6 [facility] Last Admin: 06/26/17 13:13 Dose: 3 ml Aspirin (Aspirin Chewable) 81 mg PO DAILY [facility] Last Admin: 06/26/17 10:42 Dose: 81 mg Carvedilol (Coreg) 12.5 mg PO BID [facility] Last Admin: 06/26/17 10:42 Dose: 12.5 mg Epoetin Kumar (Procrit) 10,000 unit SC MWF [facility] Heparin Sodium (Porcine) (Heparin) 5,000 units SC Q12 [facility] Hydralazine HCl (Apresoline) 25 mg PO Q8 [facility] Last Admin: 06/26/17 15:10 Dose: 25 mg Insulin Human Regular (Novolin R) 0 unit SC ACHS [facility] PRN Reason: Protocol Last Admin: 06/26/17 17:16 Dose: 6 unit Levothyroxine Sodium (Synthroid) 50 mcg PO DAILY@0630 [facility] Last Admin: 06/26/17 05:57 Dose: 50 mcg Pantoprazole Sodium (Protonix Ec Tab) 40 mg PO DAILY [facility] Last Admin: 06/26/17 10:42 Dose: 40 mg Rosuvastatin Calcium (Crestor) 10 mg PO HS [facility] Last Admin: 06/25/17 21:24 Dose: 10 mg Tamsulosin HCl (Flomax) 0.4 mg PO DAILY [facility] Last Admin: 06/26/17 10:42 Dose: 0.4 mg Vitamin B Complex/Vit C/Folic Acid (Nephro-Lety) 1 tab PO DAILY [facility] Last Admin: 06/26/17 15:15 Dose: 1 tab - Labs Labs: 06/25/17 06:14 06/25/17 06:15 PT 11.3 SECONDS (9.7-12.2) 06/25/17 06:15 INR 1.0 06/25/17 06:15 APTT 30 SECONDS (21-34) 06/26/17 06:31 - Constitutional Appears: Well - Head Exam Head Exam: ATRAUMATIC, NORMAL INSPECTION, NORMOCEPHALIC - Eye Exam Eye Exam: EOMI - ENT Exam ENT Exam: Mucous Membranes Moist - Respiratory Exam Respiratory Exam: Clear to Ausculation Bilateral, NORMAL BREATHING PATTERN. absent: Rhonchi, Wheezes, Respiratory Distress, Stridor - Cardiovascular Exam Cardiovascular Exam: +S1, +S2, +S4 - GI/Abdominal Exam GI & Abdominal Exam: Normal Bowel Sounds Additional comments: PD cath - Extremities Exam Extremities Exam: Normal Inspection Assessment and Plan - Assessment and Plan (Free Text) Assessment: 74yo M. PMHx ESRD on pertioneal dialysis, DM type 2, HTN, dyslipidemia, hypothyroidism, CAD, CABG s/p PPM -post pacemaker, patient stable -HTN: control BP with addition of hydralazine orally Hem: anemia of chronic disease ESRD on PD continue PD DM type 2, SISS for coverage. Accucheck device is compatible with current dialysate which can cause incorrect fingerstick readings with certain machines. HBA1c 5.3 Hypothyroidism continue levothyroxine. continue oral diet Continue dvt/pud ppx Patient remains hemodynamically stable PT/OT
[2017-06-26 18:49] LABS: BASO # 0.1 K/uL (0.0-0.2); BASO % 0.7 % (0.0-2.0); EOS # 0.3 K/uL (0.0-0.7); EOS % 2.3 % (0.0-4.0); HEMOGLOBIN 10.2 g/dL (12.0-18.0); LYMPH # 0.9 K/uL (1.0-4.3); LYMPH % 7.3 % (20.0-40.0); MEAN CELL VOLUME 93.8 fL (80.0-94.0); MEAN CORPUSCULAR HEMOGLOBIN 31.9 pg (27.0-31.0); MEAN PLATELET VOLUME 8.3 fL (7.2-11.7); NEUT # 10.5 K/uL (1.8-7.0); NEUT % 81.7 % (50.0-75.0); PLATELET COUNT 235 K/uL (130-400); RBC 3.19 Mil/uL (4.40-5.90); RED CELL DISTRIBUTION WIDTH 16.4 % (11.5-14.5); WHITE BLOOD COUNT 12.8 K/uL (4.8-10.8)
[2017-06-26 19:03] LABS: ALB/GLOB RATIO 0.9 (1.0-2.1); ALBUMIN 3.3 g/dL (3.5-5.0)
[2017-06-26 19:32] LABS: BANDS 1 % (0-2); EOSINOPHIL 1 % (0-4); LYMPHOCYTE 7 % (20-40); MONOCYTE 6 % (0-10); NEUTROPHIL 85 % (50-75); PLATELET ESTIMATE NORMAL (NORMAL); TOTAL CELLS COUNTED 100
[2017-06-26 19:33] LABS: MICROCYTOSIS SLIGHT
[2017-06-26] MEDS: Piperacill/Tazo 2.25gm in Dex 2.25 GM/50 ML BAG IVPB SCH (21:51)
--- NOTE | 2017-06-26 22:01 | PN ---
DATE: 06/26/2017 TIME: Seen by me at 6 p.m. SUBJECTIVE: The patient is currently in the intensive care unit _bed 18____. He is comfortable breathing but he has somewhat metabolic encephalopathic breathing. He is having flapping tremor, muscle twitching also noted. This morning, he was able to sit up on the chair for at least to couple of hours but later he got weak and tired. His appetites is poor, not eating well. PHYSICAL EXAMINATION: VITAL SIGNS: His blood pressure is on the normal side now, pulse rate 67, blood pressure 130/62, saturation is 100% with 2 liters nasal cannula. CHEST: Good air entry bilaterally. HEART: Regular heart sound. ABDOMEN: Abdominal distension noted because he is receiving the fluid peritoneal dialysis. Had BM this morning. EXTREMITIES: Bilateral leg swelling is negative. LABORATORY DATA: No labs today. The patient is _getting___ peritoneal dialysis. ASSESSMENT AND RECOMMENDATION: Josesito Brady is a 76-year-old male with coronary artery disease, renal insufficiency, hypertension, admitted to the hospital with complete heart block, status post pacemaker, dual chamber. He is sensing and V-pacing. Currently possibly has metabolic encephalopathy secondary to uremia and also secondary to anesthesia. We will get labs today. We will discuss with the dicer machine operator regarding the effect of hemodialysis or peritoneal dialysis and we will follow up the patient. I spoke to the patient's family. Eren Elizabeth MD [facility]
[2017-06-27] MEDS: Albuterol-Ipratrop 3 mg / 0.5 (3 ml) UD INH SCH ×4 (01:41→19:12)
[2017-06-27 06:17] LABS: BASO # 0.1 K/uL (0.0-0.2); BASO % 0.5 % (0.0-2.0); EOS # 0.4 K/uL (0.0-0.7); EOS % 3.4 % (0.0-4.0); HEMOGLOBIN 9.5 g/dL (12.0-18.0); LYMPH # 1.1 K/uL (1.0-4.3); LYMPH % 8.6 % (20.0-40.0); MEAN CELL VOLUME 94.2 fL (80.0-94.0); MEAN PLATELET VOLUME 8.9 fL (7.2-11.7); MONO # 1.3 K/uL (0.0-0.8); MONO % 10.4 % (0.0-10.0); NEUT # 9.4 K/uL (1.8-7.0); NEUT % 77.1 % (50.0-75.0); NRBC % 0.1 % (0.0-2.0); PLATELET COUNT 206 K/uL (130-400); RBC 2.96 Mil/uL (4.40-5.90); RED CELL DISTRIBUTION WIDTH 16.3 % (11.5-14.5); WHITE BLOOD COUNT 12.2 K/uL (4.8-10.8)
[2017-06-27] MEDS: Levothyroxine 50 MCG TAB PO SCH (06:22)
[2017-06-27] MEDS: Piperacill/Tazo 2.25gm in Dex 2.25 GM/50 ML BAG IVPB SCH ×3 (06:22→22:21)
[2017-06-27 06:40] LABS: ALB/GLOB RATIO 0.9 (1.0-2.1); ALBUMIN 3.1 g/dL (3.5-5.0); CALCIUM 8.2 mg/dl (8.6-10.4)
--- NOTE | 2017-06-27 08:00 | CP.CCUPN ---
CCU Subjective - Physician Review Subjective (Free Text): Patient seen and examined. is at bedside. Patient overall states he is feeling better than he did yesterday. He complains of slight abdominal pain. 06/25/17 16:39 CCU Objective - Vital Signs / Intake & Output Vital Signs (Last 4 hours): Vital Signs Temp Pulse Resp BP Pulse Ox 06/27/17 07:00 79 26 H 96 06/27/17 06:48 79 22 150/69 96 06/27/17 06:47 79 22 96 06/27/17 06:18 77 24 144/70 97 06/27/17 06:00 98.6 F 75 21 99 06/27/17 05:48 76 21 141/64 96 06/27/17 05:18 77 23 150/68 97 06/27/17 05:00 74 19 99 06/27/17 04:48 77 23 151/63 H 98 06/27/17 04:18 73 21 148/66 97 Intake and Output (Last 8hrs): Intake & Output 06/26/17 06/27/17 06/27/17 22:59 06:59 14:59 Intake Total 470 150 Output Total 0 0 0 Balance 470 150 0 Weight 170 lb Intake: Intake, IV Amount 50 50 Left Antecubital 50 50 Oral 420 100 Output: Urine 0 0 0 Urine, Voided 0 0 0 Stool 0 Emesis 0 Other: # Bowel Movements 0 0 - Physical Exam Head: Positive for: Atraumatic, Normocephalic Extroacular Muscles: Positive for: EOMI Conjunctiva: Positive for: Normal Respiratory/Chest: Positive for: Clear to Auscultation. Negative for: Accessory Muscle Use, Wheezes Cardiovascular: Positive for: Normal S1, S2, Bradycardic Abdomen: Positive for: Normal Bowel Sounds. Negative for: Tenderness - Medications Active Medications: Active Medications Generic Name Dose Route Start Last Admin Trade Name Freq PRN Reason Stop Dose Admin Albuterol/Ipratropium 3 ml 06/25/17 02:00 06/27/17 07:28 Duoneb 3 Mg/0.5 Mg (3 Ml) Ud INH 3 ml RQ6 [facility] Administration Aspirin 81 mg 06/25/17 10:00 06/26/17 10:42 Aspirin Chewable PO 81 mg DAILY [facility] Administration Carvedilol 12.5 mg 06/26/17 09:26 06/26/17 18:00 Coreg PO Not Given BID [facility] Epoetin Kumar 10,000 unit 06/27/17 09:00 Procrit SC MWF [facility] Heparin Sodium (Porcine) 5,000 units 06/25/17 13:15 Heparin SC Q12 [facility] Piperacillin Sod/Tazobactam Sod 2.25 gm in 50 mls @ 100 mls/hr 06/26/17 22:00 06/27/17 06:22 Zosyn 2.25 Gm Iv Premix IVPB 06/27/17 22:01 100 mls/hr Q8 [facility] Administration Protocol Insulin Human Regular 0 unit 06/27/17 08:00 Novolin R SC ACHS [facility] Protocol Levothyroxine Sodium 50 mcg 06/25/17 06:30 06/27/17 06:22 Synthroid PO 50 mcg DAILY@0630 [facility] Administration Pantoprazole Sodium 40 mg 06/25/17 10:00 06/26/17 10:42 Protonix Ec Tab PO 40 mg DAILY [facility] Administration Rosuvastatin Calcium 10 mg 06/24/17 22:00 06/26/17 21:51 Crestor PO 10 mg HS [facility] Administration Tamsulosin HCl 0.4 mg 06/25/17 10:00 06/26/17 10:42 Flomax PO 0.4 mg DAILY [facility] Administration Vitamin B Complex/Vit C/Folic Acid 1 tab 06/25/17 10:00 06/26/17 15:15 Nephro-Lety PO 1 tab DAILY [facility] Administration - Patient Studies Lab Studies: Microbiology Studies 06/24/17 19:10 MRSA Culture (Admit) - Final Naris MRSA NOT DETECTED Lab Studies 06/27/17 06/27/17 06/27/17 Range/Units 07:20 06:02 05:59 WBC 12.2 H (4.8-10.8) K/uL RBC 2.96 L (4.40-5.90) Mil/uL Hgb 9.5 L (12.0-18.0) g/dL Hct 27.9 L (35.0-51.0) % MCV 94.2 H (80.0-94.0) fL MCH 32.0 H (27.0-31.0) pg MCHC 34.0 (33.0-37.0) g/dL RDW 16.3 H (11.5-14.5) % Plt Count 206 (130-400) K/uL MPV 8.9 (7.2-11.7) fL Neut % (Auto) 77.1 H (50.0-75.0) % Lymph % (Auto) 8.6 L (20.0-40.0) % Fannin % (Auto) 10.4 H (0.0-10.0) % Eos % (Auto) 3.4 (0.0-4.0) % Baso % (Auto) 0.5 (0.0-2.0) % Neut # (Auto) 9.4 H (1.8-7.0) K/uL Lymph # (Auto) 1.1 (1.0-4.3) K/uL Fannin # (Auto) 1.3 H (0.0-0.8) K/uL Eos # (Auto) 0.4 (0.0-0.7) K/uL Baso # (Auto) 0.1 (0.0-0.2) K/uL Neutrophils % (Manual) (50-75) % Band Neutrophils % (0-2) % Lymphocytes % (Manual) (20-40) % Monocytes % (Manual) (0-10) % Eosinophils % (Manual) (0-4) % Platelet Estimate (NORMAL) Microcytosis (manual) Sodium 131 L (132-148) mmol/L Potassium 4.2 (3.6-5.2) mmol/L Chloride 86 L (98-107) mmol/L Carbon Dioxide 27 (22-30) mmol/L Anion Gap 22 H (10-20) BUN 86 H (9-20) mg/dL Creatinine 9.8 H* (0.8-1.5) mg/dL Est GFR ( Amer) 6 Est GFR (Non-Af Amer) 5 POC Glucose (mg/dL) 466 H* (65-110) mg/dL Random Glucose 428 H* D (75-110) mg/dL Hemoglobin A1c (4.2-6.5) % Calcium 8.2 L (8.6-10.4) mg/dl Phosphorus 6.0 H (2.5-4.5) mg/dL Magnesium 2.2 (1.6-2.3) mg/dL Ferritin ng/mL Total Bilirubin 0.6 (0.2-1.3) mg/dL AST 61 H D (17-59) U/L ALT 63 (21-72) U/L Alkaline Phosphatase 133 H (38-126) U/L Ammonia (9-33) umol/L Total Protein 6.7 (6.3-8.3) g/dL Albumin 3.1 L (3.5-5.0) g/dL Globulin 3.6 (2.2-3.9) gm/dL Albumin/Globulin Ratio 0.9 L (1.0-2.1) 06/26/17 06/26/17 06/26/17 Range/Units 21:12 18:44 18:44 WBC (4.8-10.8) K/uL RBC (4.40-5.90) Mil/uL Hgb (12.0-18.0) g/dL Hct (35.0-51.0) % MCV (80.0-94.0) fL MCH (27.0-31.0) pg MCHC (33.0-37.0) g/dL RDW (11.5-14.5) % Plt Count (130-400) K/uL MPV (7.2-11.7) fL Neut % (Auto) (50.0-75.0) % Lymph % (Auto) (20.0-40.0) % Fannin % (Auto) (0.0-10.0) % Eos % (Auto) (0.0-4.0) % Baso % (Auto) (0.0-2.0) % Neut # (Auto) (1.8-7.0) K/uL Lymph # (Auto) (1.0-4.3) K/uL Fannin # (Auto) (0.0-0.8) K/uL Eos # (Auto) (0.0-0.7) K/uL Baso # (Auto) (0.0-0.2) K/uL Neutrophils % (Manual) (50-75) % Band Neutrophils % (0-2) % Lymphocytes % (Manual) (20-40) % Monocytes % (Manual) (0-10) % Eosinophils % (Manual) (0-4) % Platelet Estimate (NORMAL) Microcytosis (manual) Sodium 131 L (132-148) mmol/L Potassium 4.3 (3.6-5.2) mmol/L Chloride 89 L (98-107) mmol/L Carbon Dioxide 25 (22-30) mmol/L Anion Gap 22 H (10-20) BUN 94 H (9-20) mg/dL Creatinine 10.5 H* (0.8-1.5) mg/dL Est GFR ( Amer) 6 Est GFR (Non-Af Amer) 5 POC Glucose (mg/dL) 244 H (65-110) mg/dL Random Glucose 262 H (75-110) mg/dL Hemoglobin A1c (4.2-6.5) % Calcium 9.0 (8.6-10.4) mg/dl Phosphorus (2.5-4.5) mg/dL Magnesium (1.6-2.3) mg/dL Ferritin ng/mL Total Bilirubin 0.7 (0.2-1.3) mg/dL AST 83 H (17-59) U/L ALT 98 H D (21-72) U/L Alkaline Phosphatase 150 H D (38-126) U/L Ammonia < 9 L (9-33) umol/L Total Protein 7.2 (6.3-8.3) g/dL Albumin 3.3 L (3.5-5.0) g/dL Globulin 3.9 (2.2-3.9) gm/dL Albumin/Globulin Ratio 0.9 L (1.0-2.1) 06/26/17 06/26/17 06/26/17 Range/Units 18:44 16:21 11:52 WBC 12.8 H (4.8-10.8) K/uL RBC 3.19 L (4.40-5.90) Mil/uL Hgb 10.2 L (12.0-18.0) g/dL Hct 29.9 L (35.0-51.0) % MCV 93.8 (80.0-94.0) fL MCH 31.9 H (27.0-31.0) pg MCHC 34.0 (33.0-37.0) g/dL RDW 16.4 H (11.5-14.5) % Plt Count 235 (130-400) K/uL MPV 8.3 (7.2-11.7) fL Neut % (Auto) 81.7 H (50.0-75.0) % Lymph % (Auto) 7.3 L (20.0-40.0) % Fannin % (Auto) 8.0 (0.0-10.0) % Eos % (Auto) 2.3 (0.0-4.0) % Baso % (Auto) 0.7 (0.0-2.0) % Neut # (Auto) 10.5 H (1.8-7.0) K/uL Lymph # (Auto) 0.9 L (1.0-4.3) K/uL Fannin # (Auto) 1.0 H (0.0-0.8) K/uL Eos # (Auto) 0.3 (0.0-0.7) K/uL Baso # (Auto) 0.1 (0.0-0.2) K/uL Neutrophils % (Manual) 85 H (50-75) % Band Neutrophils % 1 (0-2) % Lymphocytes % (Manual) 7 L (20-40) % Monocytes % (Manual) 6 (0-10) % Eosinophils % (Manual) 1 (0-4) % Platelet Estimate Normal (NORMAL) Microcytosis (manual) Slight Sodium (132-148) mmol/L Potassium (3.6-5.2) mmol/L Chloride (98-107) mmol/L Carbon Dioxide (22-30) mmol/L Anion Gap (10-20) BUN (9-20) mg/dL Creatinine (0.8-1.5) mg/dL Est GFR ( Amer) Est GFR (Non-Af Amer) POC Glucose (mg/dL) 310 H (65-110) mg/dL Random Glucose (75-110) mg/dL Hemoglobin A1c 5.3 (4.2-6.5) % Calcium (8.6-10.4) mg/dl Phosphorus (2.5-4.5) mg/dL Magnesium (1.6-2.3) mg/dL Ferritin ng/mL Total Bilirubin (0.2-1.3) mg/dL AST (17-59) U/L ALT (21-72) U/L Alkaline Phosphatase (38-126) U/L Ammonia (9-33) umol/L Total Protein (6.3-8.3) g/dL Albumin (3.5-5.0) g/dL Globulin (2.2-3.9) gm/dL Albumin/Globulin Ratio (1.0-2.1) 06/26/17 06/26/17 Range/Units 11:26 06:31 WBC (4.8-10.8) K/uL RBC (4.40-5.90) Mil/uL Hgb (12.0-18.0) g/dL Hct (35.0-51.0) % MCV (80.0-94.0) fL MCH (27.0-31.0) pg MCHC (33.0-37.0) g/dL RDW (11.5-14.5) % Plt Count (130-400) K/uL MPV (7.2-11.7) fL Neut % (Auto) (50.0-75.0) % Lymph % (Auto) (20.0-40.0) % Fannin % (Auto) (0.0-10.0) % Eos % (Auto) (0.0-4.0) % Baso % (Auto) (0.0-2.0) % Neut # (Auto) (1.8-7.0) K/uL Lymph # (Auto) (1.0-4.3) K/uL Fannin # (Auto) (0.0-0.8) K/uL Eos # (Auto) (0.0-0.7) K/uL Baso # (Auto) (0.0-0.2) K/uL Neutrophils % (Manual) (50-75) % Band Neutrophils % (0-2) % Lymphocytes % (Manual) (20-40) % Monocytes % (Manual) (0-10) % Eosinophils % (Manual) (0-4) % Platelet Estimate (NORMAL) Microcytosis (manual) Sodium (132-148) mmol/L Potassium (3.6-5.2) mmol/L Chloride (98-107) mmol/L Carbon Dioxide (22-30) mmol/L Anion Gap (10-20) BUN (9-20) mg/dL Creatinine (0.8-1.5) mg/dL Est GFR ( Amer) Est GFR (Non-Af Amer) POC Glucose (mg/dL) 327 H (65-110) mg/dL Random Glucose (75-110) mg/dL Hemoglobin A1c (4.2-6.5) % Calcium (8.6-10.4) mg/dl Phosphorus (2.5-4.5) mg/dL Magnesium (1.6-2.3) mg/dL Ferritin 1660.0 ng/mL Total Bilirubin (0.2-1.3) mg/dL AST (17-59) U/L ALT (21-72) U/L Alkaline Phosphatase (38-126) U/L Ammonia (9-33) umol/L Total Protein (6.3-8.3) g/dL Albumin (3.5-5.0) g/dL Globulin (2.2-3.9) gm/dL Albumin/Globulin Ratio (1.0-2.1) Laboratory Results - last 24 hr 06/26/17 06/26/17 06/26/17 06:31 11:26 11:52 WBC RBC Hgb Hct MCV MCH MCHC RDW Plt Count MPV Neut % (Auto) Lymph % (Auto) Fannin % (Auto) Eos % (Auto) Baso % (Auto) Neut # (Auto) Lymph # (Auto) Fannin # (Auto) Eos # (Auto) Baso # (Auto) Neutrophils % (Manual) Band Neutrophils % Lymphocytes % (Manual) Monocytes % (Manual) Eosinophils % (Manual) Platelet Estimate Microcytosis (manual) Sodium Potassium Chloride Carbon Dioxide Anion Gap BUN Creatinine Est GFR ( Amer) Est GFR (Non-Af Amer) POC Glucose (mg/dL) 327 H Random Glucose Hemoglobin A1c 5.3 Calcium Phosphorus Magnesium Ferritin 1660.0 Total Bilirubin AST ALT Alkaline Phosphatase Ammonia Total Protein Albumin Globulin Albumin/Globulin Ratio 06/26/17 06/26/17 06/26/17 16:21 18:44 18:44 WBC 12.8 H RBC 3.19 L Hgb 10.2 L Hct 29.9 L MCV 93.8 MCH 31.9 H MCHC 34.0 RDW 16.4 H Plt Count 235 MPV 8.3 Neut % (Auto) 81.7 H Lymph % (Auto) 7.3 L Fannin % (Auto) 8.0 Eos % (Auto) 2.3 Baso % (Auto) 0.7 Neut # (Auto) 10.5 H Lymph # (Auto) 0.9 L Fannin # (Auto) 1.0 H Eos # (Auto) 0.3 Baso # (Auto) 0.1 Neutrophils % (Manual) 85 H Band Neutrophils % 1 Lymphocytes % (Manual) 7 L Monocytes % (Manual) 6 Eosinophils % (Manual) 1 Platelet Estimate Normal Microcytosis (manual) Slight Sodium 131 L Potassium 4.3 Chloride 89 L Carbon Dioxide 25 Anion Gap 22 H BUN 94 H Creatinine 10.5 H* Est GFR ( Amer) 6 Est GFR (Non-Af Amer) 5 POC Glucose (mg/dL) 310 H Random Glucose 262 H Hemoglobin A1c Calcium 9.0 Phosphorus Magnesium Ferritin Total Bilirubin 0.7 AST 83 H ALT 98 H D Alkaline Phosphatase 150 H D Ammonia Total Protein 7.2 Albumin 3.3 L Globulin 3.9 Albumin/Globulin Ratio 0.9 L 06/26/17 06/26/17 06/27/17 18:44 21:12 05:59 WBC 12.2 H RBC 2.96 L Hgb 9.5 L Hct 27.9 L MCV 94.2 H MCH 32.0 H MCHC 34.0 RDW 16.3 H Plt Count 206 MPV 8.9 Neut % (Auto) 77.1 H Lymph % (Auto) 8.6 L Fannin % (Auto) 10.4 H Eos % (Auto) 3.4 Baso % (Auto) 0.5 Neut # (Auto) 9.4 H Lymph # (Auto) 1.1 Fannin # (Auto) 1.3 H Eos # (Auto) 0.4 Baso # (Auto) 0.1 Neutrophils % (Manual) Band Neutrophils % Lymphocytes % (Manual) Monocytes % (Manual) Eosinophils % (Manual) Platelet Estimate Microcytosis (manual) Sodium Potassium Chloride Carbon Dioxide Anion Gap BUN Creatinine Est GFR ( Amer) Est GFR (Non-Af Amer) POC Glucose (mg/dL) 244 H Random Glucose Hemoglobin A1c Calcium Phosphorus Magnesium Ferritin Total Bilirubin AST ALT Alkaline Phosphatase Ammonia < 9 L Total Protein Albumin Globulin Albumin/Globulin Ratio 06/27/17 06/27/17 06:02 07:20 WBC RBC Hgb Hct MCV MCH MCHC RDW Plt Count MPV Neut % (Auto) Lymph % (Auto) Fannin % (Auto) Eos % (Auto) Baso % (Auto) Neut # (Auto) Lymph # (Auto) Fannin # (Auto) Eos # (Auto) Baso # (Auto) Neutrophils % (Manual) Band Neutrophils % Lymphocytes % (Manual) Monocytes % (Manual) Eosinophils % (Manual) Platelet Estimate Microcytosis (manual) Sodium 131 L Potassium 4.2 Chloride 86 L Carbon Dioxide 27 Anion Gap 22 H BUN 86 H Creatinine 9.8 H* Est GFR ( Amer) 6 Est GFR (Non-Af Amer) 5 POC Glucose (mg/dL) 466 H* Random Glucose 428 H* D Hemoglobin A1c Calcium 8.2 L Phosphorus 6.0 H Magnesium 2.2 Ferritin Total Bilirubin 0.6 AST 61 H D ALT 63 Alkaline Phosphatase 133 H Ammonia Total Protein 6.7 Albumin 3.1 L Globulin 3.6 Albumin/Globulin Ratio 0.9 L Fingerstick Blood Sugar Results: 244 Critical Care Progress Note - Nutrition Nutrition: Nutrition Category Date Time Status Renal Diet [DIET] Diets 06/25/17 Dinner Active
[2017-06-27] MEDS: (Novolin R) Insulin Human Regular 100 units/ml vial SC SCH ×4 (08:12→22:23)
[2017-06-27] MEDS ORDERED: EPOETIN ALFA 10,000 UNIT/ML ML SC SCH (09:00)
[2017-06-27] MEDS: Pantoprazole 40 mg EC Tab PO SCH (09:14)
[2017-06-27] MEDS: Multivitamin Vitamin B Complex (Nephro-Vite) Tab PO SCH (09:21)
[2017-06-27 09:35] LABS: ANISOCYTOSIS SLIGHT; BASOPHIL 1 % (0-2); EOSINOPHIL 5 % (0-4); LYMPHOCYTE 7 % (20-40); MONOCYTE 7 % (0-10); NEUTROPHIL 80 % (50-75); PLATELET ESTIMATE NORMAL (NORMAL); TOTAL CELLS COUNTED 100
--- NOTE | 2017-06-27 11:59 | CP.PCM.PN ---
Subjective - Date & Time of Evaluation Date of Evaluation: 06/27/17 Time of Evaluation: 11:56 - Subjective Subjective: Feels better today; post op PPM insertion BP still moderately elevated BSs high- insulin adjustments as per medicine Hg low phos elevated Objective - Vital Signs/Intake and Output Vital Signs (last 24 hours): Temp Pulse Resp BP Pulse Ox 98.6 F 84 21 163/67 H 96 06/27/17 06:00 06/27/17 08:49 06/27/17 08:49 06/27/17 09:14 06/27/17 09:07 Intake and Output: 06/27/17 06/27/17 06:59 18:59 Intake Total 360 180 Output Total 0 0 Balance 360 180 - Medications Medications: Current Medications Albuterol/Ipratropium (Duoneb 3 Mg/0.5 Mg (3 Ml) Ud) 3 ml INH RQ6 [facility] Last Admin: 06/27/17 07:28 Dose: 3 ml Aspirin (Aspirin Chewable) 81 mg PO DAILY [facility] Last Admin: 06/27/17 09:14 Dose: 81 mg Carvedilol (Coreg) 12.5 mg PO BID [facility] Last Admin: 06/27/17 09:14 Dose: 12.5 mg Epoetin Kumar (Procrit) 10,000 unit SC MWF [facility] Last Admin: 06/27/17 09:21 Dose: 10,000 unit Heparin Sodium (Porcine) (Heparin) 5,000 units SC Q12 [facility] Piperacillin Sod/Tazobactam Sod (Zosyn 2.25 Gm Iv Premix) 2.25 gm in 50 mls @ 100 mls/hr IVPB Q8 [facility] PRN Reason: Protocol Stop: 06/27/17 22:01 Last Admin: 06/27/17 06:22 Dose: 100 mls/hr Insulin Human Regular (Novolin R) 0 unit SC ACHS [facility] PRN Reason: Protocol Levothyroxine Sodium (Synthroid) 50 mcg PO DAILY@0630 [facility] Last Admin: 06/27/17 06:22 Dose: 50 mcg Pantoprazole Sodium (Protonix Ec Tab) 40 mg PO DAILY [facility] Last Admin: 06/27/17 09:14 Dose: 40 mg Rosuvastatin Calcium (Crestor) 10 mg PO HS [facility] Last Admin: 06/26/17 21:51 Dose: 10 mg Tamsulosin HCl (Flomax) 0.4 mg PO DAILY [facility] Last Admin: 06/27/17 09:14 Dose: 0.4 mg Vitamin B Complex/Vit C/Folic Acid (Nephro-Lety) 1 tab PO DAILY [facility] Last Admin: 06/27/17 09:21 Dose: 1 tab - Labs Labs: 06/27/17 05:59 06/27/17 06:02 PT 11.3 SECONDS (9.7-12.2) 06/25/17 06:15 INR 1.0 06/25/17 06:15 APTT 30 SECONDS (21-34) 06/26/17 06:31 - Constitutional Appears: No Acute Distress, Chronically Ill - Head Exam Head Exam: ATRAUMATIC, NORMAL INSPECTION - Eye Exam Eye Exam: EOMI, Normal appearance - Neck Exam Neck Exam: Normal Inspection. absent: Tenderness - Respiratory Exam Respiratory Exam: Clear to Ausculation Bilateral, NORMAL BREATHING PATTERN - Cardiovascular Exam Cardiovascular Exam: REGULAR RHYTHM, +S1 - GI/Abdominal Exam GI & Abdominal Exam: Soft. absent: Tenderness - Extremities Exam Extremities Exam: Normal Inspection. absent: Tenderness - Neurological Exam Neurological Exam: Alert, CN II-XII Intact - Skin Skin Exam: Dry, Warm Assessment and Plan (1) Type 2 diabetes mellitus with diabetic nephropathy Status: Acute (2) ESRD (end stage renal disease) Status: Acute (3) Heart block AV complete Status: Acute - Assessment and Plan (Free Text) Plan: Add amlodipine Add phoslo Insulin adjustments Same PD Continue ESAs
--- NOTE | 2017-06-27 17:17 | CARD ---
APPROVED REPORT EKG Measurement Heart [id number] P38 [id number] <Conclusion> Sinus rhythm with AV dissociation and Wide QRS rhythm Right bundle branch block Abnormal ECG
--- NOTE | 2017-06-27 17:18 | CARD ---
APPROVED REPORT EKG Measurement Heart [id number] [place] P49 [id number] <Conclusion> Sinus rhythm with AV dissociation and Wide QRS rhythm Right bundle branch block Possible Inferior infarct, age undetermined Abnormal ECG
[2017-06-27 22:32] VITALS: RESP 20
--- NOTE | 2017-06-28 00:42 | CP.PCM.PN ---
Subjective - Date & Time of Evaluation Date of Evaluation: 06/27/17 Time of Evaluation: 16:00 - Subjective Subjective: Patient is more awake and responding. He is able to stand up today. Slightly better than yesterday. Descending paternal dialysis Patient is able to eat slightly better Seen by a seam steamer in Objective - Vital Signs/Intake and Output Vital Signs (last 24 hours): Temp Pulse Resp BP Pulse Ox 97.8 F 70 20 152/67 H 97 06/27/17 22:30 06/27/17 22:30 06/27/17 22:30 06/27/17 22:30 06/27/17 22:30 Intake and Output: 06/27/17 06/28/17 18:59 06:59 Intake Total 380 Output Total 0 Balance 380 - Medications Medications: Current Medications Albuterol/Ipratropium (Duoneb 3 Mg/0.5 Mg (3 Ml) Ud) 3 ml INH RQ6 [facility] Last Admin: 06/27/17 19:12 Dose: 3 ml Amlodipine Besylate (Norvasc) 5 mg PO DAILY [facility] Last Admin: 06/27/17 12:49 Dose: 5 mg Aspirin (Aspirin Chewable) 81 mg PO DAILY [facility] Last Admin: 06/27/17 09:14 Dose: 81 mg Calcium Acetate (Phoslo) 667 mg PO TIDCC [facility] Last Admin: 06/27/17 17:17 Dose: 667 mg Carvedilol (Coreg) 12.5 mg PO BID [facility] Last Admin: 06/27/17 17:17 Dose: 12.5 mg Epoetin Kumar (Procrit) 10,000 unit SC MWF [facility] Last Admin: 06/27/17 09:21 Dose: 10,000 unit Heparin Sodium (Porcine) (Heparin) 5,000 units SC Q12 [facility] Insulin Human Regular (Novolin R) 0 unit SC ACHS [facility] PRN Reason: Protocol Last Admin: 06/27/17 22:23 Dose: 2 unit Levothyroxine Sodium (Synthroid) 50 mcg PO DAILY@0630 [facility] Last Admin: 06/27/17 06:22 Dose: 50 mcg Pantoprazole Sodium (Protonix Ec Tab) 40 mg PO DAILY [facility] Last Admin: 06/27/17 09:14 Dose: 40 mg Rosuvastatin Calcium (Crestor) 10 mg PO HS [facility] Last Admin: 06/27/17 22:22 Dose: 10 mg Tamsulosin HCl (Flomax) 0.4 mg PO DAILY [facility] Last Admin: 06/27/17 09:14 Dose: 0.4 mg Vitamin B Complex/Vit C/Folic Acid (Nephro-Lety) 1 tab PO DAILY [facility] Last Admin: 06/27/17 09:21 Dose: 1 tab - Labs Labs: 06/27/17 05:59 06/27/17 06:02 PT 11.3 SECONDS (9.7-12.2) 06/25/17 06:15 INR 1.0 06/25/17 06:15 APTT 30 SECONDS (21-34) 06/26/17 06:31 - Head Exam Head Exam: ATRAUMATIC Additional comments: Slow to respond. Chest good air entry Regular heart sounds Abdomen post peritoneal dialysis No leg edema pacemaker rhythm noted Assessment and Plan (1) Heart block AV complete Assessment & Plan: Status post pacemaker. Doing well. End-stage renal disease on dialysis Physical therapy. Will follow-up the patient Status: Acute (2) Syncope Status: Acute
[2017-06-28] MEDS: Albuterol-Ipratrop 3 mg / 0.5 (3 ml) UD INH SCH ×3 (01:12→13:11)
[2017-06-28] MEDS: Levothyroxine 50 MCG TAB PO SCH (06:40)
[2017-06-28] MEDS: (Novolin R) Insulin Human Regular 100 units/ml vial SC SCH ×2 (07:05→12:13)
--- NOTE | 2017-06-28 09:24 | CP.PCM.PN ---
Subjective - Date & Time of Evaluation Date of Evaluation: 06/28/17 Time of Evaluation: 09:21 - Subjective Subjective: Notes reviewed Feels well overall Minimal pain at ppm site Constipation noted Appetite good Tolerating pd well No overnight events ROS: 10 point review negative other than stated above Objective - Vital Signs/Intake and Output Vital Signs (last 24 hours): Temp Pulse Resp BP Pulse Ox 98.8 F 86 20 138/67 95 06/28/17 08:56 06/28/17 08:56 06/28/17 08:56 06/28/17 08:56 06/28/17 08:56 Intake and Output: 06/28/17 06/28/17 06:59 18:59 Intake Total 100 Balance 100 - Medications Medications: Current Medications Albuterol/Ipratropium (Duoneb 3 Mg/0.5 Mg (3 Ml) Ud) 3 ml INH RQ6 [facility] Last Admin: 06/28/17 07:20 Dose: 3 ml Amlodipine Besylate (Norvasc) 5 mg PO DAILY [facility] Last Admin: 06/27/17 12:49 Dose: 5 mg Aspirin (Aspirin Chewable) 81 mg PO DAILY [facility] Last Admin: 06/27/17 09:14 Dose: 81 mg Calcium Acetate (Phoslo) 667 mg PO TIDCC [facility] Last Admin: 06/28/17 07:48 Dose: 667 mg Carvedilol (Coreg) 12.5 mg PO BID [facility] Last Admin: 06/27/17 17:17 Dose: 12.5 mg Epoetin Kumar (Procrit) 10,000 unit SC MWF [facility] Last Admin: 06/27/17 09:21 Dose: 10,000 unit Heparin Sodium (Porcine) (Heparin) 5,000 units SC Q12 [facility] Insulin Human Regular (Novolin R) 0 unit SC ACHS [facility] PRN Reason: Protocol Last Admin: 06/28/17 07:05 Dose: 12 unit Levothyroxine Sodium (Synthroid) 50 mcg PO DAILY@0630 [facility] Last Admin: 06/28/17 06:40 Dose: 50 mcg Pantoprazole Sodium (Protonix Ec Tab) 40 mg PO DAILY [facility] Last Admin: 06/27/17 09:14 Dose: 40 mg Rosuvastatin Calcium (Crestor) 10 mg PO HS [facility] Last Admin: 06/27/17 22:22 Dose: 10 mg Tamsulosin HCl (Flomax) 0.4 mg PO DAILY [facility] Last Admin: 06/27/17 09:14 Dose: 0.4 mg Vitamin B Complex/Vit C/Folic Acid (Nephro-Lety) 1 tab PO DAILY [facility] Last Admin: 06/27/17 09:21 Dose: 1 tab - Labs Labs: 06/27/17 05:59 06/27/17 06:02 PT 11.3 SECONDS (9.7-12.2) 06/25/17 06:15 INR 1.0 06/25/17 06:15 APTT 30 SECONDS (21-34) 06/26/17 06:31 - Constitutional Appears: Well, Non-toxic - Head Exam Head Exam: ATRAUMATIC, NORMAL INSPECTION - Eye Exam Eye Exam: EOMI, Normal appearance - ENT Exam ENT Exam: Mucous Membranes Moist, Normal Oropharynx - Neck Exam Neck Exam: absent: Tenderness, Thyromegaly - Respiratory Exam Respiratory Exam: Clear to Ausculation Bilateral. absent: Rhonchi, Wheezes - Cardiovascular Exam Cardiovascular Exam: REGULAR RHYTHM, +S1, +S2. absent: JVD - GI/Abdominal Exam GI & Abdominal Exam: Soft, Normal Bowel Sounds - Extremities Exam Extremities Exam: absent: Joint Swelling, Pedal Edema - Neurological Exam Neurological Exam: Alert, Awake, Oriented x3 - Psychiatric Exam Psychiatric exam: Normal Affect, Normal Mood - Skin Skin Exam: Dry, Intact Assessment and Plan (1) ESRD (end stage renal disease) Status: Acute (2) Heart block Status: Acute (3) Type 2 diabetes mellitus with diabetic nephropathy Status: Acute - Assessment and Plan (Free Text) Assessment: Tolerating PD well Bp improved with amlodipine Monitor azotemia upon discharge Meds for constipation Consider home physical therapy
[2017-06-28] MEDS: Pantoprazole 40 mg EC Tab PO SCH (09:35)
[2017-06-28] MEDS: Multivitamin Vitamin B Complex (Nephro-Vite) Tab PO SCH (09:35)
[2017-06-28] MEDS ORDERED: POLYETHYLENE GLYCOL 3350 17 GM/Dose PACKET PO ONE (12:15)
--- NOTE | 2017-06-28 14:22 | CP.PCM.PN ---
Subjective - Date & Time of Evaluation Date of Evaluation: 06/28/17 Time of Evaluation: 14:22 - Subjective Subjective: PT SEE THIS MORNING AND CLEARED BY DR. VALLE FOR AN AFTERNOON D/C. I DISCUSSED D/C WITH Collette FRIAS. NO NEW RX, CONTINUE SAME HOME MEDS. RX GIVEN TO FLORA DERAS TO [facility] FOR A WALKER FOR D/C AND HOME PHY THERAPY. BS NOTED TO BE ELEVATED THIS MORNING, HOWEVER, WHEN SPEAKING W PT AND FAMILY I REALIZED HIS HOME INSULIN REGIMEN WAS NOT CONTINUE HERE. PT INSTRUCTED TO RESUME HIS USUAL INSULIN AT HOME. TO F/U WITH DR VALLE IN OFFICE IN 1 WEEK. CONTINUE PD USUAL. NO FURTHER ORDERS. -FOLLOW UP WITH DR. VALLE IN THE OFFICE WITHIN 1 WEEK OF DISCHARGE---CALL THE OFFICE ON FRIDAY TO MAKE AN APPOINTMENT. -FOLLOW UP WITH DR. HERNANDEZ, THE FOAM RUBBER CURER THAT INSERTED YOUR PACEMAKER, IN THE OFFICE WITHIN 2 WEEKS---CALL TO MAKE YOUR APPOINTMENT. -CONTINUE YOUR PERITONEAL DIALYSIS USUAL ONCE YOU ARE HOME. -CONTINUE ALL OF YOUR HOME MEDICATIONS USUAL, INCLUDING YOUR INSULINS. -[facility], A [facility], WILL CONTACT YOU EARLY NEXT WEEK TO SET UP HOME PHYSICAL THERAPY WITH YOU. IF YOU DO NOT HEAR FROM THEM BY FRIDAY, CALL THEIR MAIN NUMBER AT [phone]. -IF YOU HAVE ANY FURTHER CONCERNS OR QUESTIONS, CONTACT DR. VALLE'S OFFICE. Objective - Vital Signs/Intake and Output Vital Signs (last 24 hours): Temp Pulse Resp BP Pulse Ox 98.8 F 77 20 159/70 H 95 06/28/17 08:56 06/28/17 12:26 06/28/17 08:56 06/28/17 09:35 06/28/17 08:56 Intake and Output: 06/28/17 06/28/17 06:59 18:59 Intake Total 100 Balance 100 - Medications Medications: Current Medications Albuterol/Ipratropium (Duoneb 3 Mg/0.5 Mg (3 Ml) Ud) 3 ml INH RQ6 [facility] Last Admin: 06/28/17 13:11 Dose: 3 ml Amlodipine Besylate (Norvasc) 5 mg PO DAILY [facility] Last Admin: 06/28/17 09:35 Dose: 5 mg Aspirin (Aspirin Chewable) 81 mg PO DAILY [facility] Last Admin: 06/28/17 09:35 Dose: 81 mg Calcium Acetate (Phoslo) 667 mg PO TIDCC [facility] Last Admin: 06/28/17 12:13 Dose: 667 mg Carvedilol (Coreg) 12.5 mg PO BID [facility] Last Admin: 06/28/17 09:35 Dose: 12.5 mg Epoetin Kumar (Procrit) 10,000 unit SC MWF [facility] Last Admin: 06/27/17 09:21 Dose: 10,000 unit Heparin Sodium (Porcine) (Heparin) 5,000 units SC Q12 [facility] Insulin Human Regular (Novolin R) 0 unit SC ACHS [facility] PRN Reason: Protocol Last Admin: 06/28/17 12:13 Dose: 12 unit Levothyroxine Sodium (Synthroid) 50 mcg PO DAILY@0630 [facility] Last Admin: 06/28/17 06:40 Dose: 50 mcg Pantoprazole Sodium (Protonix Ec Tab) 40 mg PO DAILY [facility] Last Admin: 06/28/17 09:35 Dose: 40 mg Rosuvastatin Calcium (Crestor) 10 mg PO HS [facility] Last Admin: 06/27/17 22:22 Dose: 10 mg Tamsulosin HCl (Flomax) 0.4 mg PO DAILY [facility] Last Admin: 06/28/17 09:35 Dose: 0.4 mg Vitamin B Complex/Vit C/Folic Acid (Nephro-Lety) 1 tab PO DAILY [facility] Last Admin: 06/28/17 09:35 Dose: 1 tab - Labs Labs: 06/27/17 05:59 06/27/17 06:02 PT 11.3 SECONDS (9.7-12.2) 06/25/17 06:15 INR 1.0 06/25/17 06:15 APTT 30 SECONDS (21-34) 06/26/17 06:31
[2017-06-28 16:47] VITALS: BP 162/75; PULSE 74; TEMP 99.6; O2SAT 97
== END 2017-06-28 18:25 | disposition home or self-care (01) | DRG 544 ==
LOC: C.ER 12:59 → C.9E 17:24 → C.9I 18:41 → C.6T 06-27 14:39
PROVIDERS: ADMIT Internal Medicine; ATTEND Internal Medicine
PROC: 0JH606Z Insertion of Pacemaker, Dual Chamber into Chest Subcutaneous Tissue and Fascia, Open Approach (ICD-10-PCS; principal; 2017-06-25 15:00)
PROC: 3E1M39Z Irrigation of Peritoneal Cavity using Dialysate, Percutaneous Approach (ICD-10-PCS; 2017-06-27)
DX: I44.2 Atrioventricular block, complete (principal); G92 Toxic encephalopathy; E11.21 Type 2 diabetes mellitus with diabetic nephropathy; E11.22 Type 2 diabetes mellitus with diabetic chronic kidney disease; I12.0 Hypertensive chronic kidney disease with stage 5 chronic kidney disease or end stage renal disease; N18.6 End stage renal disease; D63.8 Anemia in other chronic diseases classified elsewhere; E03.9 Hypothyroidism, unspecified; E78.00 Pure hypercholesterolemia, unspecified; I25.10 Atherosclerotic heart disease of native coronary artery without angina pectoris; G25.2 Other specified forms of tremor; J40 Bronchitis, not specified as acute or chronic; Z95.1 Presence of aortocoronary bypass graft; Z99.2 Dependence on renal dialysis; N40.1 Benign prostatic hyperplasia with lower urinary tract symptoms; R33.8 Other retention of urine; Z79.4 Long term (current) use of insulin; R55 Syncope and collapse; K59.00 Constipation, unspecified; T41.45XA Adverse effect of unspecified anesthetic, initial encounter

== ENCOUNTER 2017-07-13 10:02 | Inpatient (IN) | payer MEDICAID ==
[2017-07-13 10:02] VITALS: BMI 24.3
--- NOTE | 2017-07-13 10:32 | CT ---
PROCEDURE: CT HEAD WITHOUT CONTRAST. HISTORY: Code Stroke COMPARISON: None available. TECHNIQUE: Axial computed tomography images were obtained through the head/brain without intravenous contrast. Radiation dose: Total exam DLP = 963 mGy-cm. This CT exam was performed using one or more of the following dose reduction techniques: Automated exposure control, adjustment of the mA and/or kV according to patient size, and/or use of iterative reconstruction technique. FINDINGS: HEMORRHAGE: No intracranial hemorrhage. BRAIN: No mass effect or edema. Scattered focal lucencies in the subcortical and periventricular white matter suggestive for chronic microvascular ischemic change. .Confluent area of low attenuation within the right frontal subcortical white matter suggestive for chronic ischemic change. VENTRICLES: Prominent. CALVARIUM: Unremarkable. PARANASAL SINUSES: Unremarkable as visualized. No significant inflammatory changes. MASTOID AIR CELLS: Unremarkable as visualized. No inflammatory changes. OTHER FINDINGS: Intracranial arterial vascular calcifications. IMPRESSION: 1. Confluent area of low attenuation within the right frontal subcortical white matter suggestive for chronic ischemic change. 2. Scattered areas of chronic microvascular ischemic change. 3. Prominent ventricles. 4. No evidence of acute intracranial hemorrhage. If there is persistent concern for acute ischemic change, correlation with MRI is recommended. These findings were discussed with Dr. Pressley at 10:24 a.m. on 07/13/2017.
[2017-07-13] MEDS ORDERED: Iodixanol 320 MG/ML 100 ML BOTTLE IV ONE (10:44)
[2017-07-13 10:48] LABS: INR 1.1; PROTHROMBIN TIME 12.4 SECONDS (9.7-12.2)
--- NOTE | 2017-07-13 10:55 | CT ---
PROCEDURE: CT Angiography of the neck and brain dated 07/13/2017 HISTORY: Code stroke COMPARISON: The comparison made with concurrent noncontrast CT scan of the brain. TECHNIQUE: Contiguous helical/transaxial images of the neck were obtained from the level of the skull-base to the superior mediastinum in the arteriographic phase of enhancement. Coronal and sagittal reformats or also generated. . IV contrast dose: Radiation Dose - DLP: 695.22 mGy-cm This CT exam was performed using one or more of the following dose reduction techniques: Automated exposure control, adjustment of the mA and/or kV according to patient size, and/or use of iterative reconstruction technique. . FINDINGS: There is partially calcified atherosclerotic plaque seen along mid and distal portion of the aortic arch and descending thoracic aorta. . Calcified atherosclerotic plaque seen at the origins of the great vessels. Right brachiocephalic and left the common carotid artery arise from a common trunk. The common carotid arteries are widely patent. Some very minor calcified plaque changes seen along both carotid bifurcations with no significant stenosis. The distal internal carotid artery's including the petrous cavernous and supraclinoid segments are patent however the fairly significant partially calcified atherosclerotic plaque both carotid siphons noted. Origin of the left vertebral artery is not visible on may be completely occluded The read however there is reconstitution of the left vertebral artery at the lower C5 level which is narrowed over short distance and and becomes more normal in caliber. The distal left vertebral artery at the level of the C2 segment is than is also not visualized as is the and appears occluded to the level of the intradural segment. . The distal most aspect of the left vertebral artery appears the patent though this may be due to some retrograde flow via the right vertebral artery. . Findings could represent sequela of atherosclerotic disease or possibly a left vertebral artery dissection. Clinic correlation recommended. The basilar artery is patent. The visualized major branches of the [place] are patent. The cerebral arteries are patent as well. No evidence of large aneurysm nor vascular malformation. IMPRESSION: There is nonvisualization origin left vertebral artery. Left vertebral artery reconstitutes at approximately the lower C5 level and is seen on as a patent vessel to the level of the C2 segment where the vertebral artery is no longer visualized and appears to be occluded. Findings could represent sequela of atherosclerotic disease or dissection. Clinical correlation recommended. Right vertebral artery is patent throughout. The common carotid arteries, carotid bifurcations and internal carotid artery is widely patent. There is a calcified atherosclerotic plaque both cavernous carotid segments. The the at anterior middle and posterior cerebral arteries are patent. No evidence of large aneurysm nor vascular malformation. Note that these findings were discussed with Dr. Scott at approximately 10:55 a.m. with written down and read back verification.
[2017-07-13 11:00] LABS: BASO # 0.1 K/uL (0.0-0.2); BASO % 0.6 % (0.0-2.0); EOS # 0.2 K/uL (0.0-0.7); EOS % 1.5 % (0.0-4.0); LYMPH # 1.5 K/uL (1.0-4.3); LYMPH % 10.5 % (20.0-40.0); MEAN CORPUSCULAR HGB CONC 34.7 g/dL (33.0-37.0); MEAN PLATELET VOLUME 8.2 fL (7.2-11.7); MONO # 1.7 K/uL (0.0-0.8); MONO % 11.9 % (0.0-10.0); NEUT # 10.7 K/uL (1.8-7.0); NEUT % 75.5 % (50.0-75.0); RBC 2.81 Mil/uL (4.40-5.90); RED CELL DISTRIBUTION WIDTH 16.2 % (11.5-14.5); WHITE BLOOD COUNT 14.2 K/uL (4.8-10.8)
[2017-07-13 11:02] LABS: ALB/GLOB RATIO 0.8 (1.0-2.1); ALBUMIN 3.1 g/dL (3.5-5.0)
[2017-07-13 11:03] LABS: TROPONIN I 0.056 ng/mL (0.00-0.120)
[2017-07-13] MEDS ORDERED: Albuterol-Ipratrop 3 mg / 0.5 (3 ml) UD ONE (11:09)
[2017-07-13 11:11] LABS: MEAN CELL VOLUME 92.1 fL (80.0-94.0)
--- NOTE | 2017-07-13 11:16 | RAD ---
Chest x-ray single frontal view History: Code stroke. Comparison: 07/08/2017 Findings: Mild venous congestion. Patchy increased markings in the right infrahilar region and left lung base. Question trace left pleural effusion. Cardiomegaly. Left-sided pacemaker. Status post median sternotomy. Degenerative changes spine and shoulders. Impression: Mild venous congestion. Patchy increased markings in the right infrahilar region and left lung base. Question trace left pleural effusion. Cardiomegaly. Left-sided pacemaker. Status post median sternotomy.
--- NOTE | 2017-07-13 11:50 | CP.PCM.HP ---
History of Present Illness - History of Present Illness History of Present Illness: Chief complaint: Right facial droop, slurred speech HPI: 76-year-old male with a history of diabetes, hypertension, hypercholesterolemia , hypothyroidism, history of bronchitis, CAD, status post a CABG 1992, five- vessel bypass also recently had a pacemaker placement 2 weeks ago for symptomatic bradycardia, end-stage renal disease on peritoneal dialysis brought in by the ambulance because of the slurred speech. Patient was complaining of some pain in the right side of the ear for 2-3 days, and also since that he got discharged from the hospital 2 weeks ago he was having some progressive worsening cough. Patient is currently taking antibiotic, he is also having problem in urination, had a cystoscopy. Given antibiotic. But today he woke up this morning, he was getting the paternal dialysis the whole night, around 8:30 AM family noticed that right side of the face droop was noted, also he started having some slurred speech, and was not able to swallow coughing, immediately called ambulance, brought into the emergency room. In the emergency room patient is now having continuous slurring of speech, and also right-sided facial weakness noted. He denies any headache, but complaining of pain over the right side of the jaw noted. Cough also noted, but mostly dry. Family is very concerned about since the dialysis fluid was changes recently he is not having some good improvement. Patient also concerned, and family wanted to have possibility of hemodialysis also. Past medical history: Diabetes, hypertension, hypothyroidism, high cholesterol, CABG, CAD, bronchitis , peritoneal dialysis End-stage renal disease Surgical history: Coronary artery bypass grafting in 1992, five-vessel, prostatectomy, laser surgery, right leg fracture surgery, cataract surgery, also recently had a pacemaker placement Family history significant for heart disease. Recently patient's daughter also had a heart disease. Stent Social history: Nonalcoholic nonsmoker Current medications reviewed Review of system: Patient is having now no headache, but the right-sided facial droop, right- sided patient pain, right ear pain noted, difficulty in swallowing, coughing noted, mild shortness of breath noted, also complaining of some abnormal distention. Some leg swelling. Shaking noted. Patient is moving the all 4 extremities On examination: Vital signs reviewed Mild elevation of the blood pressure noted. Patient is having right-sided facial weakness, also deviation of the tongue noted, and slurred speech present. Chest good air entry bilaterally Regular heart sound Abdomen soft, paternal catheter noted, patient is having 1+ edema. 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 Slurred speech noted. Right-sided droop noted, also unable to lift the right side eyebrow. Also having increasing sensation on theright side. No visible weakness noted in the lower extremities also upper next immitis. Patient is moving all 4 limbs. Patient's labs reviewed Elevated blood urea nitrogen, creatinine noted. Low sodium level noted. Mild elevation of the WBC noted with the neutrophils Chest x-ray nonspecific, elevation of the diaphragm noted. CT scan of the head showing evidence of frontal lobe hypointensity right frontal lobe, old possibly chronic disease. 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 Patient was earlier seen by emergency room doctor, also discussed with the neurologist, patient is not a candidate for TPA given the recent the surgical interventions. Assessment/recommendation: 76-year-old male with a history of diabetes, hypertension, hypercholesteremia, hypothyroidism, history of bronchitis, CAD, status post CABG, end-stage renal disease on peritoneal dialysis. Patient now admitted with acute right facial droop, and acute dysarthria. 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 Currently medical treatment. Close monitoring the blood pressure. Aspirin was given already. Will continue the aspirin, antiplatelets, anticholesterol medication. Patient will need a paternal dialysis. Will get a nephrology evaluation, close monitoring the blood pressure. Glucose control. Patient is currently agreeing and the family is also considering for dialysis, especially hemodialysis as the family does not want to continue the paternal dialysis at this time. But I explained to the family that after neurologically stable Will discuss with the belt glass sander about. Meanwhile will continue the current treatment, neuro watch. GI prophylaxis, DVT prophylaxis and will follow the patient Underlying lower motor neuron type weakness involving the right-sided facial nerve possible. Present on Admission - Present on Admission Any Indicators Present on Admission: No History of DVT/PE: No History of Uncontrolled Diabetes: No Urinary Catheter: No Decubitus Ulcer Present: No Past Patient History - Past Medical History & Family History Past Medical History?: Yes - Past Social History Smoking Status: Never Smoked - CARDIAC Hx Heart Attack: Yes Hx Hypercholesterolemia: Yes Hx Hypertension: Yes Hx Pacemaker: Yes Hx Peripheral Edema: Yes - HEENT Hx HEENT Problems: Yes Hx Cataracts: Yes - RENAL Hx Chronic Kidney Disease: Yes (STAGE 4) Hx Dialysis: Yes (PERITONEAL DIALYSIS) - ENDOCRINE/METABOLIC Hx Diabetes Mellitus Type 2: Yes Hx Hypothyroidism: Yes - MUSCULOSKELETAL/RHEUMATOLOGICAL Hx Fractures: Yes (CASTED NO OR) - GENITOURINARY/GYNECOLOGICAL Hx Genitourinary Disorders: Yes Hx Prostate Problems: Yes (BPH) Other/Comment: URINARY RETENTION - PSYCHIATRIC Hx Substance Use: No - SURGICAL HISTORY Hx Coronary Artery Bypass Graft: Yes - ANESTHESIA Hx Anesthesia: Yes Hx Anesthesia Reactions: No Hx Malignant Hyperthermia: No Meds Allergies/Adverse Reactions: Allergies Allergy/AdvReac Type Severity Reaction Status Date / Time No Known Allergies Allergy Verified 07/13/17 10:22 Results - Vital Signs Recent Vital Signs: Last Vital Signs Temp 99.2 F 07/13/17 10:09 Pulse 71 07/13/17 11:19 Resp 18 07/13/17 11:19 BP 138/52 L 07/13/17 11:19 Pulse Ox 100 07/13/17 11:19 - Labs Result Diagrams: 07/13/17 10:53 07/13/17 10:35 Labs: Laboratory Results - last 24 hr 07/13/17 07/13/17 07/13/17 10:06 10:35 10:35 WBC RBC Hgb Hct MCV MCH MCHC RDW Plt Count MPV Neut % (Auto) Lymph % (Auto) [place] % (Auto) Eos % (Auto) Baso % (Auto) Neut # (Auto) Lymph # (Auto) [place] # (Auto) Eos # (Auto) Baso # (Auto) PT 12.4 H INR 1.1 APTT 31 Sodium 126 L Potassium 4.6 Chloride 84 L Carbon Dioxide 28 Anion Gap 19 BUN 103 H* Creatinine 8.7 H* Est GFR ( Amer) 7 Est GFR (Non-Af Amer) 6 POC Glucose (mg/dL) 226 H Random Glucose 205 H Hemoglobin A1c Calcium 9.0 Total Bilirubin 0.7 AST 89 H D ALT 141 H D Alkaline Phosphatase 149 H Troponin I 0.0560 Total Protein 6.9 Albumin 3.1 L Globulin 3.8 Albumin/Globulin Ratio 0.8 L Triglycerides 113 Cholesterol 105 LDL Cholesterol Direct 39 HDL Cholesterol 28 L Blood Type 06/03/18 06/03/18 06/03/18 10:35 10:35 10:53 WBC 14.2 H RBC 2.81 L Hgb 9.0 L Hct 25.9 L MCV 92.1 D MCH 32.0 H MCHC 34.7 RDW 16.2 H Plt Count 266 MPV 8.2 Neut % (Auto) 75.5 H Lymph % (Auto) 10.5 L [place] % (Auto) 11.9 H Eos % (Auto) 1.5 Baso % (Auto) 0.6 Neut # (Auto) 10.7 H Lymph # (Auto) 1.5 [place] # (Auto) 1.7 H Eos # (Auto) 0.2 Baso # (Auto) 0.1 PT INR APTT Sodium Potassium Chloride Carbon Dioxide Anion Gap BUN Creatinine Est GFR ( Amer) Est GFR (Non-Af Amer) POC Glucose (mg/dL) Random Glucose Hemoglobin A1c 8.4 H D Calcium Total Bilirubin AST ALT Alkaline Phosphatase Troponin I Total Protein Albumin Globulin Albumin/Globulin Ratio Triglycerides Cholesterol LDL Cholesterol Direct HDL Cholesterol Blood Type B POSITIVE
--- NOTE | 2017-07-13 12:03 | C.PDOC ---
History Of Present Illness 76 year old male, with PMHx of hypercholesterolemia, hypothyroidism, HTN, diabetes, CKD on dialysis, is brought to ED via ALS for evaluation of left side arm and leg weakness, right facial droop, and slurred speech. Pt was last known well at 8:00AM. Pt was able to ambulate on scene with some assistance. Pt denies chest pain, shortness of breath, cough, vomiting, or fever. Notes he had cardiac pacemaker placed on 06/25/17. Chief Complaint (Nursing): Weakness/Neurological Deficit History Per: Patient, EMS, Family History/Exam Limitations: None Onset/Duration Of Symptoms: Hrs Current Symptoms Are (Timing): Still Present Past Medical History Reviewed: Historical Data, Nursing Documentation, Vital Signs Vital Signs: Last Vital Signs Temp 98.4 F 07/13/17 12:58 Pulse 65 07/13/17 17:00 Resp 20 07/13/17 17:00 BP 135/63 07/13/17 16:14 Pulse Ox 99 07/13/17 17:00 - Medical History PMH: Diabetes, Fractures (CASTED NO OR), HTN, Hypercholesterolemia, Hypothyroidism, Peripheral Edema, Chronic Kidney Disease (STAGE 4) Surgical History: CABG, Pacemaker - [facility] Procedures CYSTOSCOPY NEC (10/13/14) INSERT INDWELLING CATH (10/06/14) INSERT PACE. DUAL GRAY IN CHEST SUBCU/FASCIA, OPEN (06/24/17) IRRIGATION OF PERITON CAV USING DIALYSATE, PERC APPROACH (06/24/17) TRANSURETHRAL PROSTATECTOMY ([place]) (10/13/14) Family History: States: Unknown Family Hx - Social History Hx Tobacco Use: No Hx Alcohol Use: No Hx Substance Use: No - Immunization History Hx Tetanus Toxoid Vaccination: Yes Hx Influenza Vaccination: No Hx Pneumococcal Vaccination: No Review Of Systems Except As Marked, All Systems Reviewed And Found Negative. Constitutional: Negative for: Fever, Chills Cardiovascular: Negative for: Chest Pain, Palpitations Respiratory: Negative for: Cough, Shortness of Breath Gastrointestinal: Negative for: Nausea, Vomiting, Abdominal Pain Neurological: Positive for: Weakness (left sided), Change in Speech (slurred), Other (right facial droop) Physical Exam - Physical Exam Appears: Non-toxic, No Acute Distress Skin: Normal Color, Warm, Dry Head: Atraumatic, Normacephalic, Other (right facial droop) Eye(s): bilateral: Normal Inspection Oral Mucosa: Moist Cardiovascular: Rhythm Regular Respiratory: Normal Breath Sounds, No Rales, No Rhonchi, No Wheezing Gastrointestinal/Abdominal: Soft, No Tenderness, Other (peritoneal dialysis catheter in abdomen) Extremity: No Normal ROM (drift of left arm and left leg), Capillary Refill ( less than 2 seconds) Neurological/Psych: No Normal Speech (slurred speech), No Normal Motor ( decreased distresser strength of left hand) ED Course And Treatment - Laboratory Results Result Diagrams: 07/13/17 10:53 07/13/17 10:35 ECG: Interpreted By Me, Viewed By Me Interpretation Of ECG: Paced rhythm at 73bpm O2 Sat by Pulse Oximetry: 100 (RA) Pulse Ox Interpretation: Normal - CT Scan/US Head CT Other Rad Studies (CT/US): Read By Radiologist, Radiology Report Reviewed CT/US Interpretation: IMPRESSION: 1. Confluent area of low attenuation within the right frontal subcortical white matter suggestive for chronic ischemic change. 2. Scattered areas of chronic microvascular ischemic change. 3. Prominent ventricles. 4. No evidence of acute intracranial hemorrhage. If there is persistent concern for acute ischemic change, correlation with MRI is recommended. These findings were discussed with Dr. Pressley at 10:24 a.m. on 07/13/2017. NIHSS Stroke Scale - Date/Time Evaluation Performed Date Performed: 07/13/17 Time Performed: 10:05 - How Severe is the Stoke Level of Consciousness: 1=Drowsy LOC to Questions: 0=Both comments correct LOC to commands: 0=Obeys both correctly Best Gaze: 0=Normal Visual: 0=No visual loss Facial: 2=Partial (lower face paralysis) Motor Arm - Left: 2=Falls before 10 sec Motor Arm - Right: 0=No drift Motor Leg - Left: 2=Falls before 5 sec Motor Leg - Right: 0=No drift Limb Ataxia: 1=Present Upper or Lower Sensory: 0=Normal Best Language: 1=Mild to moderate aphasia Dysarthia: 2=Severe, near unintelligible or worse Extinction & Inattention (Neglect): 0=Normal, no object Score: 11 Severity Of Stroke: 5-15= Moderate Stroke rTPA Inclusion/Exclusion - Refusal of Treatment Patient Refused Treatment: No - Inclusion Criteria for Altepase Patient is 18 years or Older: Yes Clinical DX Ischemic Stroke Cause Neurological Deficit: Yes Time of Onset Established Less Than 270 Mins Before TX Begin: Yes Risk/Benefit Discussed With Patient/Family Member Present: Yes - Warning to TPA With Conditions Condition: Age Greater Than 75 years, Recent Surgery Less Than 15 Days Medical Decision Making Medical Decision Making: Case discussed with Dr. Thompson at 10:09 and soon after head CT. Pt is not a candidate for tPA secondary to cardiac pacemaker placement within less than a month. Spoke with Dr. Elizabeth who agrees upon admission under his service. Disposition - Disposition Disposition Time: 10:30 Condition: GUARDED - Clinical Impression Clinical Impression: TIA (transient ischemic attack) - Scribe Statement The provider has reviewed the documentation as recorded by the Scribe Min Ortega All medical record entries made by the Scribe were at my direction and personally dictated by me. I have reviewed the chart and agree that the record accurately reflects my personal performance of the history, physical exam, medical decision making, and the department course for this patient. I have also personally directed, reviewed, and agree with the discharge instructions and disposition.
[2017-07-13] MEDS: Albuterol-Ipratrop 3 mg / 0.5 (3 ml) UD INH SCH (13:12)
[2017-07-13] MEDS: (Novolin R) Insulin Human Regular 100 units/ml vial SC SCH ×2 (13:28→16:08)
--- NOTE | 2017-07-13 14:38 | CP.PCM.CON ---
History of Present Illness - History of Present Illness History of Present Illness: pt is a 76-year-old male with a history of diabetes, hypertension, DL , hypothyroidism, CAD, status post CABG 1992, five-vessel bypass also recently had a pacemaker placement 2 weeks ago for symptomatic bradycardia, end-stage renal disease on peritoneal dialysis brought in by the ambulance because of the difficulty swallowing and slurred speech . As per , pt was unable to swallow his medications and protein shake, then family decided to bring him to the ER mentions that he has been complaining of some pain in the right side of the ear for 2-3 days and having some low grade temp at present in icu, CT head negative for acute CVA, shows parotid gland enlargement Past medical history: Diabetes, hypertension, hypothyroidism, high cholesterol, CABG, CAD, End-stage renal disease Surgical history: CABG 1992, five-vessel, prostatectomy, laser surgery, right leg fracture surgery, cataract surgery, PPM Family history : significant for heart disease. Social history: Nonalcoholic nonsmoker Review of Systems - Review of Systems Systems not reviewed;Unavailable: Altered Mental Status, Other Review of Systems: pt lethargic, falls asleep in the middle of taking Past Patient History - Past Medical History & Family History Past Medical History?: Yes - Past Social History Smoking Status: Never Smoked - CARDIAC Hx Hypercholesterolemia: Yes Hx Hypertension: Yes Hx Pacemaker: Yes Hx Peripheral Edema: Yes - HEENT Hx HEENT Problems: Yes Hx Cataracts: Yes - RENAL Hx Chronic Kidney Disease: Yes (STAGE 4) - ENDOCRINE/METABOLIC Hx Hypothyroidism: Yes - MUSCULOSKELETAL/RHEUMATOLOGICAL Hx Fractures: Yes (CASTED NO OR) - GENITOURINARY/GYNECOLOGICAL Hx Genitourinary Disorders: Yes Hx Prostate Problems: Yes (BPH) Other/Comment: URINARY RETENTION - PSYCHIATRIC Hx Substance Use: No - SURGICAL HISTORY Hx Coronary Artery Bypass Graft: Yes - ANESTHESIA Hx Anesthesia: Yes Hx Anesthesia Reactions: No Hx Malignant Hyperthermia: No Meds Allergies/Adverse Reactions: Allergies Allergy/AdvReac Type Severity Reaction Status Date / Time No Known Allergies Allergy Verified 07/13/17 10:22 - Medications Medications: Current Medications Albuterol/Ipratropium (Duoneb 3 Mg/0.5 Mg (3 Ml) Ud) 3 ml INH RQ6 JAYLA Last Admin: 07/13/17 13:12 Dose: Not Given Aspirin (Ecotrin) 325 mg PO DAILY JAYLA Calcium Acetate (Phoslo) 667 mg PO TIDCC [facility] Last Admin: 07/13/17 13:29 Dose: Not Given Insulin Human Regular (Novolin R) 0 unit SC ACHS [facility] PRN Reason: Protocol Last Admin: 07/13/17 13:28 Dose: Not Given Levothyroxine Sodium (Synthroid) 50 mcg PO DAILY@0630 [facility] Rosuvastatin Calcium (Crestor) 10 mg PO HS [facility] Physical Exam - Constitutional Appears: Non-toxic, No Acute Distress - Head Exam Head Exam: ATRAUMATIC, NORMOCEPHALIC - Eye Exam Eye Exam: PERRL - ENT Exam ENT Exam: Mucous Membranes Moist - Neck Exam Additional comments: fullness below right ear - Respiratory Exam Respiratory Exam: Clear to Auscultation Bilateral. absent: Rhonchi, Wheezes - Cardiovascular Exam Cardiovascular Exam: REGULAR RHYTHM, +S1, +S2 - GI/Abdominal Exam GI & Abdominal Exam: Soft. absent: Distended, Tenderness Additional comments: PD catheter in place - Extremities Exam Extremities exam: Negative for: pedal edema, tenderness - Skin Skin Exam: Dry, Warm Results - Vital Signs Recent Vital Signs: Last Vital Signs Temp 98.4 F 07/13/17 12:58 Pulse 71 07/13/17 11:19 Resp 18 07/13/17 11:19 BP 138/52 L 07/13/17 11:19 Pulse Ox 100 07/13/17 12:24 - Labs Result Diagrams: 07/13/17 10:53 07/13/17 10:35 Labs: Laboratory Results - last 24 hr 07/13/17 07/13/17 07/13/17 10:06 10:35 10:35 WBC RBC Hgb Hct MCV MCH MCHC RDW Plt Count MPV Neut % (Auto) Lymph % (Auto) [place] % (Auto) Eos % (Auto) Baso % (Auto) Neut # (Auto) Lymph # (Auto) [place] # (Auto) Eos # (Auto) Baso # (Auto) PT 12.4 H INR 1.1 APTT 31 Sodium 126 L Potassium 4.6 Chloride 84 L Carbon Dioxide 28 Anion Gap 19 BUN 103 H* Creatinine 8.7 H* Est GFR ( Amer) 7 Est GFR (Non-Af Amer) 6 POC Glucose (mg/dL) 226 H Random Glucose 205 H Hemoglobin A1c Calcium 9.0 Total Bilirubin 0.7 AST 89 H D ALT 141 H D Alkaline Phosphatase 149 H Troponin I 0.0560 Total Protein 6.9 Albumin 3.1 L Globulin 3.8 Albumin/Globulin Ratio 0.8 L Triglycerides 113 Cholesterol 105 LDL Cholesterol Direct 39 HDL Cholesterol 28 L Blood Type Antibody Screen 07/13/17 07/13/17 07/13/17 10:35 10:35 10:53 WBC 14.2 H RBC 2.81 L Hgb 9.0 L Hct 25.9 L MCV 92.1 D MCH 32.0 H MCHC 34.7 RDW 16.2 H Plt Count 266 MPV 8.2 Neut % (Auto) 75.5 H Lymph % (Auto) 10.5 L [place] % (Auto) 11.9 H Eos % (Auto) 1.5 Baso % (Auto) 0.6 Neut # (Auto) 10.7 H Lymph # (Auto) 1.5 [place] # (Auto) 1.7 H Eos # (Auto) 0.2 Baso # (Auto) 0.1 PT INR APTT Sodium Potassium Chloride Carbon Dioxide Anion Gap BUN Creatinine Est GFR ( Amer) Est GFR (Non-Af Amer) POC Glucose (mg/dL) Random Glucose Hemoglobin A1c 8.4 H D Calcium Total Bilirubin AST ALT Alkaline Phosphatase Troponin I Total Protein Albumin Globulin Albumin/Globulin Ratio Triglycerides Cholesterol LDL Cholesterol Direct HDL Cholesterol Blood Type B POSITIVE Antibody Screen Negative 07/13/17 13:16 WBC RBC Hgb Hct MCV MCH MCHC RDW Plt Count MPV Neut % (Auto) Lymph % (Auto) [place] % (Auto) Eos % (Auto) Baso % (Auto) Neut # (Auto) Lymph # (Auto) [place] # (Auto) Eos # (Auto) Baso # (Auto) PT INR APTT Sodium Potassium Chloride Carbon Dioxide Anion Gap BUN Creatinine Est GFR ( Amer) Est GFR (Non-Af Amer) POC Glucose (mg/dL) 190 H Random Glucose Hemoglobin A1c Calcium Total Bilirubin AST ALT Alkaline Phosphatase Troponin I Total Protein Albumin Globulin Albumin/Globulin Ratio Triglycerides Cholesterol LDL Cholesterol Direct HDL Cholesterol Blood Type Antibody Screen Assessment & Plan - Assessment and Plan (Free Text) Assessment: ESRD on PD new onset difficulty swallowing / slurred speech- r/o stroke DM HTN DL CAD s/p CABG Hypothyroidism resume PD - home cycler and prescription iv fluids as pt NPO rec MRI head and neck ENT consult for ? parotid enlargement blood cultures Discussed with son, and pts nurse - Date & Time Date: 07/13/17 Time: 14:43
--- NOTE | 2017-07-13 14:46 | CP.PCM.CON ---
History of Present Illness - History of Present Illness History of Present Illness: 76 yr old male who came in as a code stroke, who was not a TPA candidate, because he had a pacemaker placed on June 25, 2017, with dysarthria, right sided facial droop, and had dysphagia, last seen well at 8 am. He has pmh of DM , HTN, Hypercholesterolemia, hypothyroidism, history of bronchitis, CAD, s/p post cabg 1992, 5 vessel bypass. Past medical history: Diabetes, hypertension, hypothyroidism, high cholesterol, CABG, CAD, bronchitis , peritoneal dialysis End-stage renal disease Surgical history: Coronary artery bypass grafting in 1992, five-vessel, prostatectomy, laser surgery, right leg fracture surgery, cataract surgery, also recently had a pacemaker placement Family history significant for heart disease. Recently patient's daughter also had a heart disease. Stent Social history: Nonalcoholic nonsmoker on exam: Alert awake, aphasic. Dysarthria. PERRL. no neglect, CN 2-12 normal. right sided facial droop. Can wrinkle his forehead Motor: left sided weakness, arm more than leg. Sensory: decreased ft, pin on right side, although accuracy may be poor gait not tested. Right drift. CT Head: Right frontal stroke, appears to be about 3 days old. CTA Head: Past Patient History - Past Medical History & Family History Past Medical History?: Yes - Past Social History Smoking Status: Never Smoked - CARDIAC Hx Hypercholesterolemia: Yes Hx Hypertension: Yes Hx Pacemaker: Yes Hx Peripheral Edema: Yes - HEENT Hx HEENT Problems: Yes Hx Cataracts: Yes - RENAL Hx Chronic Kidney Disease: Yes (STAGE 4) - ENDOCRINE/METABOLIC Hx Hypothyroidism: Yes - MUSCULOSKELETAL/RHEUMATOLOGICAL Hx Fractures: Yes (CASTED NO OR) - GENITOURINARY/GYNECOLOGICAL Hx Genitourinary Disorders: Yes Hx Prostate Problems: Yes (BPH) Other/Comment: URINARY RETENTION - PSYCHIATRIC Hx Substance Use: No - SURGICAL HISTORY Hx Coronary Artery Bypass Graft: Yes - ANESTHESIA Hx Anesthesia: Yes Hx Anesthesia Reactions: No Hx Malignant Hyperthermia: No Meds Allergies/Adverse Reactions: Allergies Allergy/AdvReac Type Severity Reaction Status Date / Time No Known Allergies Allergy Verified 07/13/17 10:22 - Medications Medications: Current Medications Albuterol/Ipratropium (Duoneb 3 Mg/0.5 Mg (3 Ml) Ud) 3 ml INH RQ6 [facility] Last Admin: 07/13/17 13:12 Dose: Not Given Aspirin (Ecotrin) 325 mg PO DAILY [facility] Calcium Acetate (Phoslo) 667 mg PO TIDCC [facility] Last Admin: 07/13/17 13:29 Dose: Not Given Insulin Human Regular (Novolin R) 0 unit SC ACHS [facility] PRN Reason: Protocol Last Admin: 07/13/17 13:28 Dose: Not Given Levothyroxine Sodium (Synthroid) 50 mcg PO DAILY@0630 [facility] Rosuvastatin Calcium (Crestor) 10 mg PO [facility] Results - Vital Signs Recent Vital Signs: Last Vital Signs Temp 98.4 F 07/13/17 12:58 Pulse 71 07/13/17 11:19 Resp 18 07/13/17 11:19 BP 138/52 L 07/13/17 11:19 Pulse Ox 100 07/13/17 12:24 - Labs Result Diagrams: 07/13/17 10:53 07/13/17 10:35 Labs: Laboratory Results - last 24 hr 07/13/17 07/13/17 07/13/17 10:06 10:35 10:35 WBC RBC Hgb Hct MCV MCH MCHC RDW Plt Count MPV Neut % (Auto) Lymph % (Auto) Kaufman % (Auto) Eos % (Auto) Baso % (Auto) Neut # (Auto) Lymph # (Auto) [place]man # (Auto) Eos # (Auto) Baso # (Auto) PT 12.4 H INR 1.1 APTT 31 Sodium 126 L Potassium 4.6 Chloride 84 L Carbon Dioxide 28 Anion Gap 19 BUN 103 H* Creatinine 8.7 H* Est GFR ( Amer) 7 Est GFR (Non-Af Amer) 6 POC Glucose (mg/dL) 226 H Random Glucose 205 H Hemoglobin A1c Calcium 9.0 Total Bilirubin 0.7 AST 89 H D ALT 141 H D Alkaline Phosphatase 149 H Troponin I 0.0560 Total Protein 6.9 Albumin 3.1 L Globulin 3.8 Albumin/Globulin Ratio 0.8 L Triglycerides 113 Cholesterol 105 LDL Cholesterol Direct 39 HDL Cholesterol 28 L Blood Type Antibody Screen 07/13/17 07/13/17 07/13/17 10:35 10:35 10:53 WBC 14.2 H RBC 2.81 L Hgb 9.0 L Hct 25.9 L MCV 92.1 D MCH 32.0 H MCHC 34.7 RDW 16.2 H Plt Count 266 MPV 8.2 Neut % (Auto) 75.5 H Lymph % (Auto) 10.5 L Kaufman % (Auto) 11.9 H Eos % (Auto) 1.5 Baso % (Auto) 0.6 Neut # (Auto) 10.7 H Lymph # (Auto) 1.5 Kaufman # (Auto) 1.7 H Eos # (Auto) 0.2 Baso # (Auto) 0.1 PT INR APTT Sodium Potassium Chloride Carbon Dioxide Anion Gap BUN Creatinine Est GFR ( Amer) Est GFR (Non-Af Amer) POC Glucose (mg/dL) Random Glucose Hemoglobin A1c 8.4 H D Calcium Total Bilirubin AST ALT Alkaline Phosphatase Troponin I Total Protein Albumin Globulin Albumin/Globulin Ratio Triglycerides Cholesterol LDL Cholesterol Direct HDL Cholesterol Blood Type B POSITIVE Antibody Screen Negative 07/13/17 13:16 WBC RBC Hgb Hct MCV MCH MCHC RDW Plt Count MPV Neut % (Auto) Lymph % (Auto) Kaufman % (Auto) Eos % (Auto) Baso % (Auto) Neut # (Auto) Lymph # (Auto) Kaufman # (Auto) Eos # (Auto) Baso # (Auto) PT INR APTT Sodium Potassium Chloride Carbon Dioxide Anion Gap BUN Creatinine Est GFR ( Amer) Est GFR (Non-Af Amer) POC Glucose (mg/dL) 190 H Random Glucose Hemoglobin A1c Calcium Total Bilirubin AST ALT Alkaline Phosphatase Troponin I Total Protein Albumin Globulin Albumin/Globulin Ratio Triglycerides Cholesterol LDL Cholesterol Direct HDL Cholesterol Blood Type Antibody Screen Assessment & Plan - Assessment and Plan (Free Text) Assessment: 76 yr old male with possible stroke causing right sided facial droop, with differential of parotid pathology vs [place] palsy. He also appears to have had a subacute stroke in the right M1 region that is causing the left sided weakness. We will pursue stroke workup and check EEG. CTA: shows that left vertebral is not visualized until C2 where it reconstitutes. PLan: 1. EEG 2. Admit to telemetry 3. Neuro checks q shift. 4. PT/ST/OT 5. start aspirin and plavix. 6. Neurointerventional to explore vertebral artery stenosis. 7.Keep BP at 180-190/90 8. Renal consult for uremia and dialysis management. 9. MRI BRain diffusion/stroke protocol. Thank you DR. calix
[2017-07-13] MEDS ORDERED: Dextrose 5%/0.45% NS 1,000 ML IV SCH (15:00)
[2017-07-13] MEDS ORDERED: Aritificial Tears (15ml) OD SCH (20:30)
[2017-07-13] MEDS: Aritificial Tears (15ml) OD PRN (21:35)
[2017-07-14] MEDS ORDERED: DiphenhydrAMINE 50 mg/ml Inj IVP STA (00:22)
[2017-07-14] MEDS: Albuterol-Ipratrop 3 mg / 0.5 (3 ml) UD INH SCH ×4 (01:24→19:56)
[2017-07-14] MEDS: Levothyroxine 50 MCG TAB PO SCH (06:30)
--- NOTE | 2017-07-14 06:44 | CP.PCM.PN ---
Subjective - Date & Time of Evaluation Date of Evaluation: 07/14/17 Time of Evaluation: 06:36 - Subjective Subjective: Mr. Brady was seen and examined at the bedside in ICU. He is alert, but with episode of confusion. He is unable to state person and time. He claims of headache at the right frontal area with pain scale 5/10, non radiating, denies blurred vision, diplopia, nausea, or vomiting. He is able to follow simple commands with left upper extremity weaker than the right, bilateral lower extremities equal in strength, right facial droop with tongue deviates to the right. There was no untoward events overnight. Objective - Vital Signs/Intake and Output Vital Signs (last 24 hours): Temp Pulse Resp BP Pulse Ox 99.4 F 97 H 21 178/70 H 99 07/14/17 00:00 07/14/17 05:01 07/14/17 05:01 07/14/17 05:01 07/14/17 03:00 Intake and Output: 07/13/17 07/14/17 18:59 06:59 Intake Total 150 500 Output Total 0 Balance 150 500 - Medications Medications: Current Medications Albuterol/Ipratropium (Duoneb 3 Mg/0.5 Mg (3 Ml) Ud) 3 ml INH RQ6 [facility] Last Admin: 07/14/17 01:24 Dose: 3 ml Artificial Tears (Artificial Tears) 0 ml OD Q3H PRN PRN Reason: Dry eyes Last Admin: 07/13/17 21:35 Dose: 1 drop Aspirin (Aspirin Supp) 300 mg LA DAILY [facility] Calcium Acetate (Phoslo) 667 mg PO TIDCC [facility] Last Admin: 07/13/17 16:03 Dose: Not Given Heparin Sodium (Porcine) (Heparin) 5,000 units SC Q12H [facility] Last Admin: 07/13/17 21:35 Dose: 5,000 units Dextrose/Sodium Chloride (Dextrose 5%/0.45% Ns 1000 Ml) 1,000 mls @ 50 mls/hr IV .Q20H [facility] Last Admin: 07/13/17 15:50 Dose: 50 mls/hr Magnesium Sulfate/Dextrose (Magnesium Sulfate 1 Gm/100 Ml D5w) 1 gm in 100 mls @ 300 mls/hr IVPB Q30M [facility] Stop: 07/14/17 07:19 Insulin Human Regular (Novolin R) 0 unit SC Q6H [facility] PRN Reason: Protocol Last Admin: 07/14/17 00:00 Dose: Not Given Levothyroxine Sodium (Synthroid) 50 mcg PO DAILY@0630 [facility] Rosuvastatin Calcium (Crestor) 10 mg PO HS [facility] Last Admin: 07/13/17 22:00 Dose: Not Given - Labs Labs: 07/13/17 10:53 07/13/17 10:35 PT 12.4 SECONDS (9.7-12.2) H 07/13/17 10:35 INR 1.1 07/13/17 10:35 APTT 31 SECONDS (21-34) 07/13/17 10:35 - Constitutional Appears: No Acute Distress - Head Exam Head Exam: NORMAL INSPECTION - Eye Exam Pupil Exam: Miosis, PERRL - Neurological Exam Neurological Exam: Alert, Awake Neuro motor strength exam: Left Upper Extremity: 4, Right Upper Extremity: 5, Left Lower Extremity: 5, Right Lower Extremity: 5 Additional comments: alert, able to follow simple commands with left upper extremity weaker than the right, bilateral lower extremities equal in strength, right facial droop with tongue deviates to the right, sensation is intact. Assessment and Plan (1) TIA (transient ischemic attack) Assessment & Plan: Case discussed with Dr. Thompson, continue all current medical, physical, occupational, and speech therapies. 1. MRI of the brain is not possible due to patient's PPM. 2. Pending echocardiogram. 3. Recommend aspirin 300 mg LA daily until patient will tolerate PO intake ( at present he is NPO). If patient will pass swallowing eval, to start on aspirin 81 mg PO daily and plavix 75 mg po daily. 4. Labs for posible Yu's palsy- herpes type 1&2, EMA, lyme, and RPR. ( treatment is pending since patient's creatinine is elevated) 5. Permissive hypertension until 12 nn treat systolic BP above 180 and diastolic above 90. 6. Recommend glycemic control, keep head of bed elevated at least 30 degrees for brain perfusion. 7. Neurointerventionalist ( Dr. Garcia).consult to evaluate left vertebral is not visualized until C2 where it reconstitutes Status: Acute
[2017-07-14 07:05] LABS: BASO # 0.1 K/uL (0.0-0.2); BASO % 0.7 % (0.0-2.0); EOS # 0.1 K/uL (0.0-0.7); HEMOGLOBIN 8.9 g/dL (12.0-18.0); LYMPH # 1.2 K/uL (1.0-4.3); LYMPH % 7.9 % (20.0-40.0); MEAN CORPUSCULAR HEMOGLOBIN 31.6 pg (27.0-31.0); MEAN CORPUSCULAR HGB CONC 34.3 g/dL (33.0-37.0); MEAN PLATELET VOLUME 7.6 fL (7.2-11.7); MONO # 1.8 K/uL (0.0-0.8); MONO % 12.6 % (0.0-10.0); NEUT # 11.4 K/uL (1.8-7.0); NEUT % 77.8 % (50.0-75.0); PLATELET COUNT 289 K/uL (130-400); RBC 2.82 Mil/uL (4.40-5.90); RED CELL DISTRIBUTION WIDTH 15.9 % (11.5-14.5); WHITE BLOOD COUNT 14.6 K/uL (4.8-10.8)
[2017-07-14] MEDS: (Novolin R) Insulin Human Regular 100 units/ml vial SC SCH ×4 (07:05→18:14)
[2017-07-14] MEDS: Magnesium Sulfate 1 gm in D5W 1 GM/100 ML BAG IVPB SCH ×2 (07:05→08:13)
[2017-07-14 08:13] LABS: ALB/GLOB RATIO 0.8 (1.0-2.1); ALBUMIN 3.3 g/dL (3.5-5.0); CALCIUM 8.6 mg/dl (8.6-10.4)
[2017-07-14 08:32] LABS: ANISOCYTOSIS SLIGHT; EOSINOPHIL 1 % (0-4); LYMPHOCYTE 8 % (20-40); MONOCYTE 11 % (0-10); NEUTROPHIL 80 % (50-75); PLATELET ESTIMATE NORMAL (NORMAL); TOTAL CELLS COUNTED 100
[2017-07-14 08:33] LABS: HYPOCHROMIC SLIGHT; POIKILOCYTOSIS SLIGHT; TOXIC GRANULATION PRESENT
[2017-07-14] MEDS: Piperacill/Tazo 2.25gm in Dex 2.25 GM/50 ML BAG IVPB SCH ×3 (09:02→21:35)
[2017-07-14] MEDS ORDERED: Aspirin 325 mg EC Tablets PO SCH (10:00)
--- NOTE | 2017-07-14 10:03 | RAD ---
HISTORY: Pneumonia COMPARISON: Comparison chest 07/13/2017 FINDINGS: LUNGS: Poor inspiration with low lung volumes, crowded bronchovascular markings and mild bibasilar atelectasis. Questionable small left-sided effusion PLEURA: As above. No pneumothorax apparent. CARDIOVASCULAR: Heart size unchanged. Sternotomy wires and CABG clips again noted. No change bipolar pacemaker OSSEOUS STRUCTURES: No significant abnormalities. VISUALIZED UPPER ABDOMEN: Normal. OTHER FINDINGS: None. IMPRESSION: Poor inspiration with low lung volumes, crowded bronchovascular markings and mild bibasilar atelectasis. Questionable small left-sided effusion
--- NOTE | 2017-07-14 11:09 | CP.PCM.PN ---
Subjective - Date & Time of Evaluation Date of Evaluation: 07/14/17 Time of Evaluation: 11:05 - Subjective Subjective: still very weak; still with sl right ue weakness PD in progress - via cycler family concerned about poor mutritional intake cannot do MRI due to PPM, CT cannot confoirm CVA Hg low- will order ESAs Bp sl elevated Objective - Vital Signs/Intake and Output Vital Signs (last 24 hours): Temp Pulse Resp BP Pulse Ox 100 F H 93 H 27 H 160/74 H 100 07/14/17 08:00 07/14/17 08:01 07/14/17 08:01 07/14/17 09:03 07/14/17 08:01 Intake and Output: 07/14/17 07/14/17 06:59 18:59 Intake Total 500 100 Output Total 0 Balance 500 100 - Medications Medications: Current Medications Albuterol/Ipratropium (Duoneb 3 Mg/0.5 Mg (3 Ml) Ud) 3 ml INH RQ6 [facility] Last Admin: 07/14/17 07:38 Dose: 3 ml Artificial Tears (Artificial Tears) 0 ml OD Q3H PRN PRN Reason: Dry eyes Last Admin: 07/13/17 21:35 Dose: 1 drop Aspirin (Aspirin Supp) 300 mg SC DAILY [facility] Calcium Acetate (Phoslo) 667 mg PO TIDCC [facility] Last Admin: 07/14/17 08:30 Dose: Not Given Heparin Sodium (Porcine) (Heparin) 5,000 units SC Q12H [facility] Last Admin: 07/14/17 09:51 Dose: 5,000 units Piperacillin Sod/Tazobactam Sod (Zosyn 2.25 Gm Iv Premix) 2.25 gm in 50 mls @ 100 mls/hr IVPB Q8 [facility] PRN Reason: Protocol Last Admin: 07/14/17 09:02 Dose: 100 mls/hr Insulin Human Regular (Novolin R) 0 unit SC Q6H [facility] PRN Reason: Protocol Last Admin: 07/14/17 07:05 Dose: 8 unit Levothyroxine Sodium (Synthroid) 50 mcg PO DAILY@0630 [facility] Last Admin: 07/14/17 06:30 Dose: Not Given Rosuvastatin Calcium (Crestor) 10 mg PO HS [facility] Last Admin: 07/13/17 22:00 Dose: Not Given - Labs Labs: 07/14/17 06:59 07/14/17 06:59 PT 12.4 SECONDS (9.7-12.2) H 07/13/17 10:35 INR 1.1 07/13/17 10:35 APTT 31 SECONDS (21-34) 07/13/17 10:35 - Constitutional Appears: No Acute Distress, Cachectic, Chronically Ill - Head Exam Head Exam: ATRAUMATIC, NORMAL INSPECTION - Eye Exam Eye Exam: EOMI, Normal appearance - Neck Exam Neck Exam: Normal Inspection. absent: Tenderness - Respiratory Exam Respiratory Exam: Clear to Ausculation Bilateral, NORMAL BREATHING PATTERN - Cardiovascular Exam Cardiovascular Exam: REGULAR RHYTHM, +S1 - GI/Abdominal Exam GI & Abdominal Exam: Soft. absent: Tenderness - Extremities Exam Extremities Exam: Normal Inspection. absent: Tenderness - Neurological Exam Neurological Exam: Alert, Motor Sensory Deficit - Skin Skin Exam: Dry, Warm Assessment and Plan (1) TIA (transient ischemic attack) Status: Acute (2) ESRD (end stage renal disease) Status: Acute (3) Heart block AV complete Status: Acute (4) Type 2 diabetes mellitus with diabetic nephropathy Status: Acute - Assessment and Plan (Free Text) Plan: continue ASA continue neuro checks DM control same PD add ESAs; check iron stores
--- NOTE | 2017-07-14 11:36 | CP.CCUPN ---
CCU Subjective - Physician Review Subjective (Free Text): Patient was seen and examined at bedside. Patient is alert but not oriented to person and time. Admits to headache, responds to simple commands with left UE weakness > right. Critical Care Time Spent (in minutes): 20 CCU Objective - Vital Signs / Intake & Output Vital Signs (Last 4 hours): Vital Signs Temp Pulse Resp BP Pulse Ox 07/14/17 09:03 160/74 H 07/14/17 08:01 93 H 27 H 161/69 H 100 07/14/17 08:00 100 F H 94 H 25 H 100 Intake and Output (Last 8hrs): Intake & Output 07/13/17 07/14/17 07/14/17 22:59 06:59 14:59 Intake Total 300 350 100 Output Total 0 0 Balance 300 350 100 Weight 162 lb Intake: Intake, IV Amount 300 350 100 Left Antecubital 150 350 100 Left Forearm 150 Right Hand 0 Oral 0 Output: Urine 0 0 Urine, Voided 0 0 Stool 0 Emesis 0 - Physical Exam Physical Exam Limitations: Positive for: Altered Mental Status Head: Positive for: Atraumatic, Normocephalic Pupils: Positive for: PERRL Extroacular Muscles: Positive for: EOMI Conjunctiva: Positive for: Normal Mouth: Positive for: Dry Pharnyx: Positive for: Uvular Deviation (right) Neck: Positive for: Normal Range of Motion Respiratory/Chest: Positive for: Clear to Auscultation, Good Air Exchange. Negative for: Respiratory Distress Cardiovascular: Positive for: Tachycardic Abdomen: Positive for: Normal Bowel Sounds, Other (peritoneal catheter in place , c/d/i ) Back: Positive for: Normal Inspection Upper Extremity: Positive for: Normal Inspection, NORMAL PULSES, Neurovascularly Intact, Capillary Refill < 2s. Negative for: Cyanosis, Edema, Tenderness, Swelling, Erythema Lower Extremity: Positive for: Normal Inspection, NORMAL PULSES. Negative for: Edema, CALF TENDERNESS, Tenderness, Swelling, Erythema Neurological: Positive for: Other (alert, able to follow simple commands with left upper extremity weaker than the right, bilateral lower extremities equal in strength, right facial droop with tongue deviates to the right, sensation is intact) Skin: Positive for: Warm, Dry, Normal Color. Negative for: Rashes Psychiatric: Positive for: Alert, Lethargic - Medications Active Medications: Active Medications Generic Name Dose Route Start Last Admin Trade Name Freq PRN Reason Stop Dose Admin Albuterol/Ipratropium 3 ml 07/13/17 14:00 07/14/17 07:38 Duoneb 3 Mg/0.5 Mg (3 Ml) Ud INH 3 ml RQ6 JAYLA Administration Artificial Tears 0 ml 07/13/17 22:00 07/13/17 21:35 Artificial Tears OD 1 drop Q3H PRN Administration Dry eyes Aspirin 300 mg 07/14/17 10:00 07/14/17 11:22 Aspirin Supp IN 300 mg DAILY JAYLA Administration Calcium Acetate 667 mg 07/13/17 12:00 07/14/17 08:30 Phoslo PO Not Given TIDCC JAYLA Epoetin Kmuar 10,000 unit 07/16/17 09:00 Procrit SC MWF [facility] Heparin Sodium (Porcine) 5,000 units 07/13/17 22:00 07/14/17 09:51 Heparin SC 5,000 units Q12H JAYLA Administration Piperacillin Sod/Tazobactam Sod 2.25 gm in 50 mls @ 100 mls/hr 07/14/17 08:45 07/14/17 09:02 Zosyn 2.25 Gm Iv Premix IVPB 100 mls/hr Q8 [facility] Administration Protocol Insulin Human Regular 0 unit 07/14/17 00:00 07/14/17 07:05 Novolin R SC 8 unit Q6H [facility] Administration Protocol Levothyroxine Sodium 50 mcg 07/14/17 06:30 07/14/17 06:30 Synthroid PO Not Given DAILY@0630 [facility] Prednisone 60 mg 07/14/17 15:00 Prednisone Tab PO 07/21/17 15:01 DAILY [facility] Rosuvastatin Calcium 10 mg 07/13/17 22:00 07/13/17 22:00 Crestor PO Not Given HS [facility] Valacyclovir HCl 1,000 mg 07/14/17 18:00 Valtrex PO Q12 [facility] Protocol - Patient Studies Lab Studies: Lab Studies 07/14/17 07/14/17 07/14/17 Range/Units 06:59 06:59 06:59 WBC 14.6 H (4.8-10.8) K/uL RBC 2.82 L (4.40-5.90) Mil/uL Hgb 8.9 L (12.0-18.0) g/dL Hct 25.9 L (35.0-51.0) % MCV 92.0 (80.0-94.0) fL MCH 31.6 H (27.0-31.0) pg MCHC 34.3 (33.0-37.0) g/dL RDW 15.9 H (11.5-14.5) % Plt Count 289 (130-400) K/uL MPV 7.6 (7.2-11.7) fL Neut % (Auto) 77.8 H (50.0-75.0) % Lymph % (Auto) 7.9 L (20.0-40.0) % Bradford % (Auto) 12.6 H (0.0-10.0) % Eos % (Auto) 1.0 (0.0-4.0) % Baso % (Auto) 0.7 (0.0-2.0) % Neut # (Auto) 11.4 H (1.8-7.0) K/uL Lymph # (Auto) 1.2 (1.0-4.3) K/uL Bradford # (Auto) 1.8 H (0.0-0.8) K/uL Eos # (Auto) 0.1 (0.0-0.7) K/uL Baso # (Auto) 0.1 (0.0-0.2) K/uL Neutrophils % (Manual) 80 H (50-75) % Lymphocytes % (Manual) 8 L (20-40) % Monocytes % (Manual) 11 H (0-10) % Eosinophils % (Manual) 1 (0-4) % Toxic Granulation Present Platelet Estimate Normal (NORMAL) Hypochromasia (manual) Slight Poikilocytosis (manual Slight Anisocytosis (manual) Slight Sodium 126 L (132-148) mmol/L Potassium 4.5 (3.6-5.2) mmol/L Chloride 83 L (98-107) mmol/L Carbon Dioxide 27 (22-30) mmol/L Anion Gap 20 (10-20) BUN 97 H (9-20) mg/dL Creatinine 8.5 H* (0.8-1.5) mg/dL Est GFR ( Amer) 7 Est GFR (Non-Af Amer) 6 POC Glucose (mg/dL) (65-110) mg/dL Random Glucose 329 H (75-110) mg/dL Calcium 8.6 (8.6-10.4) mg/dl Phosphorus 4.5 (2.5-4.5) mg/dL Magnesium 2.3 (1.6-2.3) mg/dL Total Bilirubin 0.5 (0.2-1.3) mg/dL AST 74 H (17-59) U/L ALT 116 H (21-72) U/L Alkaline Phosphatase 146 H (38-126) U/L Total Protein 7.3 (6.3-8.3) g/dL Albumin 3.3 L (3.5-5.0) g/dL Globulin 3.9 (2.2-3.9) gm/dL Albumin/Globulin Ratio 0.8 L (1.0-2.1) HSV Source Description Serum, vial pour-off Antibody Screen 07/14/17 07/13/17 07/13/17 Range/Units 06:58 23:49 13:16 WBC (4.8-10.8) K/uL RBC (4.40-5.90) Mil/uL Hgb (12.0-18.0) g/dL Hct (35.0-51.0) % MCV (80.0-94.0) fL MCH (27.0-31.0) pg MCHC (33.0-37.0) g/dL RDW (11.5-14.5) % Plt Count (130-400) K/uL MPV (7.2-11.7) fL Neut % (Auto) (50.0-75.0) % Lymph % (Auto) (20.0-40.0) % Bradford % (Auto) (0.0-10.0) % Eos % (Auto) (0.0-4.0) % Baso % (Auto) (0.0-2.0) % Neut # (Auto) (1.8-7.0) K/uL Lymph # (Auto) (1.0-4.3) K/uL Bradford # (Auto) (0.0-0.8) K/uL Eos # (Auto) (0.0-0.7) K/uL Baso # (Auto) (0.0-0.2) K/uL Neutrophils % (Manual) (50-75) % Lymphocytes % (Manual) (20-40) % Monocytes % (Manual) (0-10) % Eosinophils % (Manual) (0-4) % Toxic Granulation Platelet Estimate (NORMAL) Hypochromasia (manual) Poikilocytosis (manual Anisocytosis (manual) Sodium (132-148) mmol/L Potassium (3.6-5.2) mmol/L Chloride (98-107) mmol/L Carbon Dioxide (22-30) mmol/L Anion Gap (10-20) BUN (9-20) mg/dL Creatinine (0.8-1.5) mg/dL Est GFR ( Amer) Est GFR (Non-Af Amer) POC Glucose (mg/dL) 387 H 288 H 190 H (65-110) mg/dL Random Glucose (75-110) mg/dL Calcium (8.6-10.4) mg/dl Phosphorus (2.5-4.5) mg/dL Magnesium (1.6-2.3) mg/dL Total Bilirubin (0.2-1.3) mg/dL AST (17-59) U/L ALT (21-72) U/L Alkaline Phosphatase (38-126) U/L Total Protein (6.3-8.3) g/dL Albumin (3.5-5.0) g/dL Globulin (2.2-3.9) gm/dL Albumin/Globulin Ratio (1.0-2.1) HSV Source Description Antibody Screen 07/13/17 Range/Units 10:35 WBC (4.8-10.8) K/uL RBC (4.40-5.90) Mil/uL Hgb (12.0-18.0) g/dL Hct (35.0-51.0) % MCV (80.0-94.0) fL MCH (27.0-31.0) pg MCHC (33.0-37.0) g/dL RDW (11.5-14.5) % Plt Count (130-400) K/uL MPV (7.2-11.7) fL Neut % (Auto) (50.0-75.0) % Lymph % (Auto) (20.0-40.0) % Bradford % (Auto) (0.0-10.0) % Eos % (Auto) (0.0-4.0) % Baso % (Auto) (0.0-2.0) % Neut # (Auto) (1.8-7.0) K/uL Lymph # (Auto) (1.0-4.3) K/uL Bradford # (Auto) (0.0-0.8) K/uL Eos # (Auto) (0.0-0.7) K/uL Baso # (Auto) (0.0-0.2) K/uL Neutrophils % (Manual) (50-75) % Lymphocytes % (Manual) (20-40) % Monocytes % (Manual) (0-10) % Eosinophils % (Manual) (0-4) % Toxic Granulation Platelet Estimate (NORMAL) Hypochromasia (manual) Poikilocytosis (manual Anisocytosis (manual) Sodium (132-148) mmol/L Potassium (3.6-5.2) mmol/L Chloride (98-107) mmol/L Carbon Dioxide (22-30) mmol/L Anion Gap (10-20) BUN (9-20) mg/dL Creatinine (0.8-1.5) mg/dL Est GFR ( Amer) Est GFR (Non-Af Amer) POC Glucose (mg/dL) (65-110) mg/dL Random Glucose (75-110) mg/dL Calcium (8.6-10.4) mg/dl Phosphorus (2.5-4.5) mg/dL Magnesium (1.6-2.3) mg/dL Total Bilirubin (0.2-1.3) mg/dL AST (17-59) U/L ALT (21-72) U/L Alkaline Phosphatase (38-126) U/L Total Protein (6.3-8.3) g/dL Albumin (3.5-5.0) g/dL Globulin (2.2-3.9) gm/dL Albumin/Globulin Ratio (1.0-2.1) HSV Source Description Antibody Screen Negative Laboratory Results - last 24 hr 07/13/17 07/13/17 07/13/17 10:35 13:16 23:49 WBC RBC Hgb Hct MCV MCH MCHC RDW Plt Count MPV Neut % (Auto) Lymph % (Auto) Bradford % (Auto) Eos % (Auto) Baso % (Auto) Neut # (Auto) Lymph # (Auto) Bradford # (Auto) Eos # (Auto) Baso # (Auto) Neutrophils % (Manual) Lymphocytes % (Manual) Monocytes % (Manual) Eosinophils % (Manual) Toxic Granulation Platelet Estimate Hypochromasia (manual) Poikilocytosis (manual Anisocytosis (manual) Sodium Potassium Chloride Carbon Dioxide Anion Gap BUN Creatinine Est GFR ( Amer) Est GFR (Non-Af Amer) POC Glucose (mg/dL) 190 H 288 H Random Glucose Calcium Phosphorus Magnesium Total Bilirubin AST ALT Alkaline Phosphatase Total Protein Albumin Globulin Albumin/Globulin Ratio HSV Source Description Antibody Screen Negative 07/14/17 07/14/17 07/14/17 06:58 06:59 06:59 WBC 14.6 H RBC 2.82 L Hgb 8.9 L Hct 25.9 L MCV 92.0 MCH 31.6 H MCHC 34.3 RDW 15.9 H Plt Count 289 MPV 7.6 Neut % (Auto) 77.8 H Lymph % (Auto) 7.9 L Bradford % (Auto) 12.6 H Eos % (Auto) 1.0 Baso % (Auto) 0.7 Neut # (Auto) 11.4 H Lymph # (Auto) 1.2 Bradford # (Auto) 1.8 H Eos # (Auto) 0.1 Baso # (Auto) 0.1 Neutrophils % (Manual) 80 H Lymphocytes % (Manual) 8 L Monocytes % (Manual) 11 H Eosinophils % (Manual) 1 Toxic Granulation Present Platelet Estimate Normal Hypochromasia (manual) Slight Poikilocytosis (manual Slight Anisocytosis (manual) Slight Sodium 126 L Potassium 4.5 Chloride 83 L Carbon Dioxide 27 Anion Gap 20 BUN 97 H Creatinine 8.5 H* Est GFR ( Amer) 7 Est GFR (Non-Af Amer) 6 POC Glucose (mg/dL) 387 H Random Glucose 329 H Calcium 8.6 Phosphorus 4.5 Magnesium 2.3 Total Bilirubin 0.5 AST 74 H ALT 116 H Alkaline Phosphatase 146 H Total Protein 7.3 Albumin 3.3 L Globulin 3.9 Albumin/Globulin Ratio 0.8 L HSV Source Description Antibody Screen 07/14/17 06:59 WBC RBC Hgb Hct MCV MCH MCHC RDW Plt Count MPV Neut % (Auto) Lymph % (Auto) Bradford % (Auto) Eos % (Auto) Baso % (Auto) Neut # (Auto) Lymph # (Auto) Bradford # (Auto) Eos # (Auto) Baso # (Auto) Neutrophils % (Manual) Lymphocytes % (Manual) Monocytes % (Manual) Eosinophils % (Manual) Toxic Granulation Platelet Estimate Hypochromasia (manual) Poikilocytosis (manual Anisocytosis (manual) Sodium Potassium Chloride Carbon Dioxide Anion Gap BUN Creatinine Est GFR ( Amer) Est GFR (Non-Af Amer) POC Glucose (mg/dL) Random Glucose Calcium Phosphorus Magnesium Total Bilirubin AST ALT Alkaline Phosphatase Total Protein Albumin Globulin Albumin/Globulin Ratio HSV Source Description Serum, vial pour-off Antibody Screen Fingerstick Blood Sugar Results: 387 Critical Care Progress Note - Ventilator Checklist PUD Prophalyxis: Yes (on prednisone x 7 days ) DVT Prophylaxis: Yes - Nutrition Nutrition: Nutrition Category Date Time Status Dysphagia/Modified Consistency Diet [DIET] Diets 07/14/17 Lunch Ordered Assessment/Plan - Assessment and Plan (Free Text) Assessment: This is a 76 year old male with HTN, DM, Hypercholesterimia, CAD, CABG with 5 vessel disease, ESRD on peritoneal dialysis, with symptomatic bradycardia s/p pacemaker placed [address] Valencia, hypothyroidism, who presented to the ED on 07/28 for dysphagia and slurred speech, TIA/ CVA. Plan: Neuro: A: TIA/ CVA versus Yu's Palsy Neurology: Dr. Thompson - on board Imaging: - Head CT: 1. Confluent area of low attenuation within the right frontal subcortical white matter suggestive for chronic ischemic change. 2. Scattered areas of chronic microvascular ischemic change. 3. Prominent ventricles. 4. No evidence of acute intracranial hemorrhage. If there is persistent concern for acute ischemic change, correlation with MRI is recommended. - Head/ Neck CTA: There is nonvisualization origin left vertebral artery. Left vertebral artery reconstitutes at approximately the lower C5 level and is seen on as a patent vessel to the level of the C2 segment where the vertebral artery is no longer visualized and appears to be occluded. Findings could represent sequela of atherosclerotic disease or dissection. Clinical correlation recommended. Right vertebral artery is patent throughout. The common carotid arteries, carotid bifurcations and internal carotid artery is widely patent. There is a calcified atherosclerotic plaque both cavernous carotid segments. The the at anterior middle and posterior cerebral arteries are patent. No evidence of large aneurysm nor vascular malformation. Not able to have MRI - due to recent PPM placement - ECHO - was done recently as outpatient with Dr. Elizabeth - no need to repeat - Carotid dopplers ordered - As per Neurointerventionalist Dr. Garcia consulted to evaluate non visualized left vetebral aa Management: - Passed swallow eval: ASA 81mg, Plavix 75mg, Crestor 10mg - R/O Yu's Palsy - Herpes type 1&2, EMA, lyme, & RPR - Started on Prednisone 60mg x 7 days, Valtrex [id number] x 7 days (renal dosed) Cardio: A: HTN, CAD, CABG with 5 vessel disease, with symptomatic bradycardia s/p pacemaker placed [address] Valencia - Recent ECHO performed in Dr. Elizabeth's office as outpatient - ASA 81mg, Plavix 75mg, Crestor 10mg Pulm: - Duonebs Endo: A: Hypothyroidism - Resumed Synthroid 50 mcg A: DM - Accuchecks - ISS - medium - A1C 8.4 - Will monitor as started on prednisone, expect hyperglycemia GI: pepcid Renal: A: ESRD on peritoneal dialysis, family wants to HD. Will speak to nephro, pending current clinical improvement - Nephrology consulted - Dr. Benson - Ginger, Procrit Heme/Onc A: Anemia of Chronic Disease - Baseline hemoglobin 9/10s - Continue with Procrit ID: - low grade fever [id number] 07/14/17 8am - Leukocytosis with left shift, no bandemia noted - Zosyn 2.25gm Q8H 07/14/17 - F/U UC, BC ,MRSA Integumentary: N/A Prophylaxis - Pepcid 2/2 to steroids - Heparin [id number] - Diet: Dysphagia Diet as per Speech Therapist - PT/OT DW with ICU Attending - Dr. Glenn Chin, PGY-1
[2017-07-14] MEDS ORDERED: Pantoprazole 40 mg EC Tab PO STA (13:05)
[2017-07-14] MEDS: Aritificial Tears (15ml) OD PRN (17:35)
--- NOTE | 2017-07-14 23:08 | CARD ---
APPROVED REPORT EKG Measurement Heart [id number] <Conclusion> Atrial-sensed ventricular-paced rhythm with prolonged AV conduction Abnormal ECG
[2017-07-15] MEDS: (Novolin R) Insulin Human Regular 100 units/ml vial SC SCH ×5 (00:19→17:44)
[2017-07-15] MEDS: Albuterol-Ipratrop 3 mg / 0.5 (3 ml) UD INH SCH ×4 (01:32→19:43)
[2017-07-15] MEDS: Piperacill/Tazo 2.25gm in Dex 2.25 GM/50 ML BAG IVPB SCH ×3 (05:46→21:38)
[2017-07-15] MEDS: Levothyroxine 50 MCG TAB PO SCH (05:50)
[2017-07-15 06:16] LABS: HEMOGLOBIN 8.6 g/dL (12.0-18.0); MEAN CELL VOLUME 93.2 fL (80.0-94.0); MEAN CORPUSCULAR HEMOGLOBIN 31.9 pg (27.0-31.0); MEAN CORPUSCULAR HGB CONC 34.2 g/dL (33.0-37.0); MEAN PLATELET VOLUME 8.4 fL (7.2-11.7); RBC 2.68 Mil/uL (4.40-5.90); RED CELL DISTRIBUTION WIDTH 16.3 % (11.5-14.5); WHITE BLOOD COUNT 14.1 K/uL (4.8-10.8)
[2017-07-15 06:34] LABS: ALB/GLOB RATIO 0.8 (1.0-2.1); ALBUMIN 3.1 g/dL (3.5-5.0); CALCIUM 8.5 mg/dl (8.6-10.4)
[2017-07-15] MEDS ORDERED: Bisacodyl 5mg EC Tab PO ONE (07:51)
[2017-07-15] MEDS ORDERED: CARVEDILOL 6.25 MG PO SCH (10:00)
--- NOTE | 2017-07-15 10:26 | VASCLAB ---
PROCEDURE: HISTORY: TIA COMPARISON: None available. TECHNIQUE: Grayscale and duplex Doppler evaluation of the cervical carotid and vertebral arteries were performed. The common carotid, carotid bifurcations and cervical Internal Carotid Artery (ICA) and proximal External Carotid Artery (ECA) were evaluated. The vertebral arteries were evaluated for gross patency and flow direction. Report prepared by Nnamdi Mcdonough, BS, RVT FINDINGS: RIGHT CAROTID ARTERIES: 1. Common Carotid Artery: No significant focal plaque formation of the right common carotid artery. Maximum Peak Systolic velocity: 89 cm/sec: End-diastolic velocity 14 cm/sec. 2. Carotid Bifurcation: Homogeneous plaque formation. Maximum Peak Systolic velocity: 68 cm/sec: End-diastolic velocity 9 cm/sec. 3. Internal Carotid Artery: Moderate plaque formation of the right proximal ICA which results in hemodynamically significant stenosis. Plaque description: Homogeneous 3.1. Proximal Segment: Peak systolic velocity 249 cm/sec: End-diastolic velocity 37 cm/sec - % stenosis 60-70% 3.2. Middle Segment: Peak systolic velocity 99 cm/sec: End-diastolic velocity 28 cm/sec - % stenosis 0-15% 3.3. Distal Segment: Peak systolic velocity 87 cm/sec: End-diastolic velocity 24 cm/sec - % stenosis 0-15% 4. External Carotid Artery: No significant focal plaque formation. Peak systolic velocity 143 cm/sec 5. ICA/CCA Ratio: 2.8 LEFT CAROTID ARTERIES: 1. Common Carotid Artery: No significant focal plaque formation of the left common carotid artery. Maximum Peak Systolic velocity: 113 cm/sec: End-diastolic velocity 16 cm/sec. 2. Carotid Bifurcation: Calcific plaque formation. Maximum Peak Systolic velocity: 99 cm/sec: End-diastolic velocity 18 cm/sec. 3. Internal Carotid Artery: Minimal plaque formation of the left proximal ICA which does not result in hemodynamically significant stenosis. Plaque description: Calcific 3.1. Proximal Segment: Peak systolic velocity 103 cm/sec: End-diastolic velocity 22 cm/sec - % stenosis 0-15% 3.2. Middle Segment: Peak systolic velocity 111 cm/sec: End-diastolic velocity 26 cm/sec - % stenosis 0-15% 3.3. Distal Segment: Peak systolic velocity 87 cm/sec: End-diastolic velocity 22 cm/sec - % stenosis 0-15% 4. External Carotid Artery: No significant focal plaque formation. Peak systolic velocity 113 cm/sec 5. ICA/CCA Ratio: 1.0 VERTEBRAL ARTERIES: 1. Right Vertebral Artery: The right vertebral artery flow direction is antegrade. 2. Left Vertebral Artery: The left vertebral artery flow direction is antegrade. OTHER FINDINGS: 1. Right Brachial Blood pressure: 166 mmHg. 2. Left Brachial Blood pressure: mmHg. IMPRESSION: RIGHT: 60-70% stenosis of the right proximal ICA with moderate hemodynamic significance. LEFT: Duplex scan does not suggest hemodynamically significant stenosis of the left extracranial carotid arteries.
--- NOTE | 2017-07-15 10:36 | CP.CCUPN ---
<Tameka Chin - Last Filed: 07/15/17 10:31> CCU Subjective - Physician Review Subjective (Free Text): Patient was seen and examined at bedside. Patient is AAO x 3, reports having some dizziness after physical therapy, otherwise is tolerating diet, has not had a BM x 2 days. CCU Objective - Vital Signs / Intake & Output Vital Signs (Last 4 hours): Vital Signs Temp Pulse Resp BP Pulse Ox 07/15/17 10:01 78 20 139/61 100 07/15/17 10:00 78 21 100 07/15/17 09:01 90 20 144/66 99 07/15/17 08:57 91 H 133/63 93 L 07/15/17 08:01 84 17 158/73 H 100 07/15/17 08:00 98 F 84 19 100 07/15/17 07:01 83 18 160/77 H 100 07/15/17 07:00 82 14 99 Intake and Output (Last 8hrs): Intake & Output 07/14/17 07/15/17 07/15/17 22:59 06:59 14:59 Intake Total 170 80 150 Output Total 0 0 0 Balance 170 80 150 Intake: Intake, IV Amount 50 50 Left Antecubital 50 50 Oral 120 30 150 Output: Urine 0 0 0 Urine, Voided 0 0 0 Stool 0 Other: # Voids Urine, Voided 0 # Bowel Movements 0 - Physical Exam Head: Positive for: Atraumatic, Normocephalic Pupils: Positive for: PERRL Extroacular Muscles: Positive for: EOMI Conjunctiva: Positive for: Normal Mouth: Positive for: Dry Pharnyx: Positive for: Uvular Deviation (right) Neck: Positive for: Normal Range of Motion Respiratory/Chest: Positive for: Clear to Auscultation, Good Air Exchange. Negative for: Respiratory Distress Cardiovascular: Positive for: Tachycardic Abdomen: Positive for: Normal Bowel Sounds, Other (peritoneal catheter in place , c/d/i ) Back: Positive for: Normal Inspection Upper Extremity: Positive for: Normal Inspection, NORMAL PULSES, Neurovascularly Intact, Capillary Refill < 2s. Negative for: Cyanosis, Edema, Tenderness, Swelling, Erythema Lower Extremity: Positive for: Normal Inspection, NORMAL PULSES. Negative for: Edema, CALF TENDERNESS, Tenderness, Swelling, Erythema Neurological: Positive for: Other (alert, able to follow simple commands with left upper extremity weaker than the right, bilateral lower extremities equal in strength, right facial droop with tongue deviates to the right, sensation is intact) Skin: Positive for: Warm, Dry, Normal Color. Negative for: Rashes Psychiatric: Positive for: Alert, Lethargic - Medications Active Medications: Active Medications Generic Name Dose Route Start Last Admin Trade Name Freq PRN Reason Stop Dose Admin Albuterol/Ipratropium 3 ml 07/13/17 14:00 07/15/17 07:41 Duoneb 3 Mg/0.5 Mg (3 Ml) Ud INH 3 ml RQ6 JAYLA Administration Artificial Tears 0 ml 07/13/17 22:00 07/14/17 17:35 Artificial Tears OD 1 drop Q3H PRN Administration Dry eyes Aspirin 81 mg 07/15/17 10:00 Aspirin Chewable PO DAILY [facility] Calcium Acetate 667 mg 07/13/17 12:00 07/15/17 07:55 Phoslo PO 667 mg TIDCC JAYLA Administration Carvedilol 6.25 mg 07/14/17 20:30 07/14/17 21:35 Coreg PO 6.25 mg BID JAYLA Administration Clopidogrel Bisulfate 75 mg 07/15/17 10:00 Plavix PO DAILY [facility] Docusate Sodium 100 mg 07/15/17 10:00 Colace PO TID [facility] Epoetin Kumar 10,000 unit 07/16/17 09:00 Procrit NE MWF [facility] Famotidine 20 mg 07/14/17 13:45 07/14/17 15:35 Pepcid PO 20 mg DAILY JAYLA Administration Heparin Sodium (Porcine) 5,000 units 07/13/17 22:00 07/14/17 21:35 Heparin SC 5,000 units Q12H JAYLA Administration Piperacillin Sod/Tazobactam Sod 2.25 gm in 50 mls @ 100 mls/hr 07/14/17 08:45 07/15/17 05:46 Zosyn 2.25 Gm Iv Premix IVPB 100 mls/hr Q8 JAYLA Administration Protocol Insulin Human NPH 18 unit 07/15/17 10:00 Novolin N SC Q12 JAYLA Insulin Human Regular 0 unit 07/15/17 07:32 07/15/17 08:03 Novolin R SC 12 unit Q6 JAYLA Administration Protocol Levothyroxine Sodium 50 mcg 07/14/17 06:30 07/15/17 05:50 Synthroid PO 50 mcg DAILY@0630 JAYLA Administration Prednisone 60 mg 07/14/17 15:00 07/14/17 15:41 Prednisone Tab PO 07/21/17 15:01 60 mg DAILY JAYLA Administration Rosuvastatin Calcium 10 mg 07/13/17 22:00 07/14/17 21:34 Crestor PO 10 mg HS JAYLA Administration Valacyclovir HCl 500 mg 07/14/17 18:00 07/14/17 18:14 Valtrex PO 07/20/17 18:01 500 mg Q24H JAYLA Administration Protocol - Patient Studies Lab Studies: Lab Studies 07/15/17 07/15/17 07/15/17 Range/Units 06:06 06:06 06:06 WBC 14.1 H (4.8-10.8) K/uL RBC 2.68 L (4.40-5.90) Mil/uL Hgb 8.6 L (12.0-18.0) g/dL Hct 25.0 L (35.0-51.0) % MCV 93.2 (80.0-94.0) fL MCH 31.9 H (27.0-31.0) pg MCHC 34.2 (33.0-37.0) g/dL RDW 16.3 H (11.5-14.5) % Plt Count 267 (130-400) K/uL MPV 8.4 (7.2-11.7) fL Sodium 121 L (132-148) mmol/L Potassium 5.1 (3.6-5.2) mmol/L Chloride 82 L (98-107) mmol/L Carbon Dioxide 23 (22-30) mmol/L Anion Gap 21 H (10-20) BUN 94 H (9-20) mg/dL Creatinine 8.8 H* (0.8-1.5) mg/dL Est GFR ( Amer) 7 Est GFR (Non-Af Amer) 6 POC Glucose (mg/dL) (65-110) mg/dL Random Glucose 436 H* D (75-110) mg/dL Calcium 8.5 L (8.6-10.4) mg/dl Phosphorus (2.5-4.5) mg/dL Magnesium (1.6-2.3) mg/dL % Saturation 25 (20-55) Ferritin 2000.0 ng/mL Total Bilirubin 0.8 (0.2-1.3) mg/dL AST 99 H D (17-59) U/L ALT 106 H (21-72) U/L Alkaline Phosphatase 135 H (38-126) U/L Total Protein 7.0 (6.3-8.3) g/dL Albumin 3.1 L (3.5-5.0) g/dL Globulin 3.9 (2.2-3.9) gm/dL Albumin/Globulin Ratio 0.8 L (1.0-2.1) RPR (NONREACTIVE) HSV Source Description 07/15/17 07/15/17 07/15/17 Range/Units 06:06 05:35 05:32 WBC (4.8-10.8) K/uL RBC (4.40-5.90) Mil/uL Hgb (12.0-18.0) g/dL Hct (35.0-51.0) % MCV (80.0-94.0) fL MCH (27.0-31.0) pg MCHC (33.0-37.0) g/dL RDW (11.5-14.5) % Plt Count (130-400) K/uL MPV (7.2-11.7) fL Sodium (132-148) mmol/L Potassium (3.6-5.2) mmol/L Chloride (98-107) mmol/L Carbon Dioxide (22-30) mmol/L Anion Gap (10-20) BUN (9-20) mg/dL Creatinine (0.8-1.5) mg/dL Est GFR ( Amer) Est GFR (Non-Af Amer) POC Glucose (mg/dL) > 500 H* > 500 H* (65-110) mg/dL Random Glucose (75-110) mg/dL Calcium (8.6-10.4) mg/dl Phosphorus 6.1 H (2.5-4.5) mg/dL Magnesium 3.0 H (1.6-2.3) mg/dL % Saturation (20-55) Ferritin ng/mL Total Bilirubin (0.2-1.3) mg/dL AST (17-59) U/L ALT (21-72) U/L Alkaline Phosphatase (38-126) U/L Total Protein (6.3-8.3) g/dL Albumin (3.5-5.0) g/dL Globulin (2.2-3.9) gm/dL Albumin/Globulin Ratio (1.0-2.1) RPR (NONREACTIVE) HSV Source Description 07/14/17 07/14/17 07/14/17 Range/Units 23:38 17:48 11:30 WBC (4.8-10.8) K/uL RBC (4.40-5.90) Mil/uL Hgb (12.0-18.0) g/dL Hct (35.0-51.0) % MCV (80.0-94.0) fL MCH (27.0-31.0) pg MCHC (33.0-37.0) g/dL RDW (11.5-14.5) % Plt Count (130-400) K/uL MPV (7.2-11.7) fL Sodium (132-148) mmol/L Potassium (3.6-5.2) mmol/L Chloride (98-107) mmol/L Carbon Dioxide (22-30) mmol/L Anion Gap (10-20) BUN (9-20) mg/dL Creatinine (0.8-1.5) mg/dL Est GFR ( Amer) Est GFR (Non-Af Amer) POC Glucose (mg/dL) 279 H 214 H 211 H (65-110) mg/dL Random Glucose (75-110) mg/dL Calcium (8.6-10.4) mg/dl Phosphorus (2.5-4.5) mg/dL Magnesium (1.6-2.3) mg/dL % Saturation (20-55) Ferritin ng/mL Total Bilirubin (0.2-1.3) mg/dL AST (17-59) U/L ALT (21-72) U/L Alkaline Phosphatase (38-126) U/L Total Protein (6.3-8.3) g/dL Albumin (3.5-5.0) g/dL Globulin (2.2-3.9) gm/dL Albumin/Globulin Ratio (1.0-2.1) RPR (NONREACTIVE) HSV Source Description 07/14/17 07/14/17 Range/Units 06:59 06:59 WBC (4.8-10.8) K/uL RBC (4.40-5.90) Mil/uL Hgb (12.0-18.0) g/dL Hct (35.0-51.0) % MCV (80.0-94.0) fL MCH (27.0-31.0) pg MCHC (33.0-37.0) g/dL RDW (11.5-14.5) % Plt Count (130-400) K/uL MPV (7.2-11.7) fL Sodium (132-148) mmol/L Potassium (3.6-5.2) mmol/L Chloride (98-107) mmol/L Carbon Dioxide (22-30) mmol/L Anion Gap (10-20) BUN (9-20) mg/dL Creatinine (0.8-1.5) mg/dL Est GFR ( Amer) Est GFR (Non-Af Amer) POC Glucose (mg/dL) (65-110) mg/dL Random Glucose (75-110) mg/dL Calcium (8.6-10.4) mg/dl Phosphorus (2.5-4.5) mg/dL Magnesium (1.6-2.3) mg/dL % Saturation (20-55) Ferritin ng/mL Total Bilirubin (0.2-1.3) mg/dL AST (17-59) U/L ALT (21-72) U/L Alkaline Phosphatase (38-126) U/L Total Protein (6.3-8.3) g/dL Albumin (3.5-5.0) g/dL Globulin (2.2-3.9) gm/dL Albumin/Globulin Ratio (1.0-2.1) RPR Nonreactive (NONREACTIVE) HSV Source Description Serum, vial pour-off Laboratory Results - last 24 hr 07/14/17 07/14/17 07/14/17 06:59 06:59 11:30 WBC RBC Hgb Hct MCV MCH MCHC RDW Plt Count MPV Sodium Potassium Chloride Carbon Dioxide Anion Gap BUN Creatinine Est GFR ( Amer) Est GFR (Non-Af Amer) POC Glucose (mg/dL) 211 H Random Glucose Calcium Phosphorus Magnesium % Saturation Ferritin Total Bilirubin AST ALT Alkaline Phosphatase Total Protein Albumin Globulin Albumin/Globulin Ratio RPR Nonreactive HSV Source Description Serum, vial pour-off 07/14/17 07/14/17 07/15/17 17:48 23:38 05:32 WBC RBC Hgb Hct MCV MCH MCHC RDW Plt Count MPV Sodium Potassium Chloride Carbon Dioxide Anion Gap BUN Creatinine Est GFR ( Amer) Est GFR (Non-Af Amer) POC Glucose (mg/dL) 214 H 279 H > 500 H* Random Glucose Calcium Phosphorus Magnesium % Saturation Ferritin Total Bilirubin AST ALT Alkaline Phosphatase Total Protein Albumin Globulin Albumin/Globulin Ratio RPR HSV Source Description 07/15/17 07/15/17 07/15/17 05:35 06:06 06:06 WBC 14.1 H RBC 2.68 L Hgb 8.6 L Hct 25.0 L MCV 93.2 MCH 31.9 H MCHC 34.2 RDW 16.3 H Plt Count 267 MPV 8.4 Sodium Potassium Chloride Carbon Dioxide Anion Gap BUN Creatinine Est GFR ( Amer) Est GFR (Non-Af Amer) POC Glucose (mg/dL) > 500 H* Random Glucose Calcium Phosphorus 6.1 H Magnesium 3.0 H % Saturation Ferritin Total Bilirubin AST ALT Alkaline Phosphatase Total Protein Albumin Globulin Albumin/Globulin Ratio RPR HSV Source Description 07/15/17 07/15/17 06:06 06:06 WBC RBC Hgb Hct MCV MCH MCHC RDW Plt Count MPV Sodium 121 L Potassium 5.1 Chloride 82 L Carbon Dioxide 23 Anion Gap 21 H BUN 94 H Creatinine 8.8 H* Est GFR ( Amer) 7 Est GFR (Non-Af Amer) 6 POC Glucose (mg/dL) Random Glucose 436 H* D Calcium 8.5 L Phosphorus Magnesium % Saturation 25 Ferritin 2000.0 Total Bilirubin 0.8 AST 99 H D ALT 106 H Alkaline Phosphatase 135 H Total Protein 7.0 Albumin 3.1 L Globulin 3.9 Albumin/Globulin Ratio 0.8 L RPR HSV Source Description Fingerstick Blood Sugar Results: 500 Critical Care Progress Note - Nutrition Nutrition: Nutrition Category Date Time Status Dysphagia/Modified Consistency Diet [DIET] Diets 07/14/17 Lunch Active Assessment/Plan - Assessment and Plan (Free Text) Assessment: This is a 76 year old male with HTN, DM, Hypercholesterimia, CAD, CABG with 5 vessel disease, ESRD on peritoneal dialysis, with symptomatic bradycardia s/p pacemaker placed [address] Valnecia, hypothyroidism, who presented to the ED on 07/28 for dysphagia and slurred speech, ??TIA/ CVA. 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 Plan: Neuro: A: TIA/ CVA versus Yu's Palsy Neurology: Dr. Thompson - on board Imaging: - Head CT: 1. Confluent area of low attenuation within the right frontal subcortical white matter suggestive for chronic ischemic change. 2. Scattered areas of chronic microvascular ischemic change. 3. Prominent ventricles. 4. No evidence of acute intracranial hemorrhage. If there is persistent concern for acute ischemic change, correlation with MRI is recommended. - Head/ Neck CTA: There is nonvisualization origin left vertebral artery. Left vertebral artery reconstitutes at approximately the lower C5 level and is seen on as a patent vessel to the level of the C2 segment where the vertebral artery is no longer visualized and appears to be occluded. Findings could represent sequela of atherosclerotic disease or dissection. Clinical correlation recommended. Right vertebral artery is patent throughout. The common carotid arteries, carotid bifurcations and internal carotid artery is widely patent. There is a calcified atherosclerotic plaque both cavernous carotid segments. The the at anterior middle and posterior cerebral arteries are patent. No evidence of large aneurysm nor vascular malformation. Not able to have MRI - due to recent PPM placement - ECHO - was done recently as outpatient with Dr. Elizabeth - no need to repeat - Carotid dopplers ordered - As per Neurointerventionalist Dr. 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 Valencia - Recent ECHO performed in Dr. Elizabeth's office as outpatient - ASA 81mg, Plavix 75mg, Crestor 10mg Pulm: - Duonebs Endo: A: Hypothyroidism - Resumed Synthroid 50 mcg A: DM - Accuchecks - ISS - medium - A1C 8.4 - Will monitor as started on prednisone, expect hyperglycemia GI: pepcid Renal: A: ESRD on peritoneal dialysis, family wants to HD. Will speak to nephro, pending current clinical improvement - Nephrology consulted - Dr. Benson - Randall Miles Heme/Onc A: Anemia of Chronic Disease - Baseline hemoglobin 9/10s - Continue with Procrit ID: - low grade fever [id number] 07/14/17 8am - Leukocytosis with left shift, no bandemia noted - Zosyn 2.25gm Q8H 07/14/17 - F/U UC, BC ,MRSA Integumentary: N/A Prophylaxis - Pepcid 2/2 to steroids - Heparin [id number] - Diet: Dysphagia Diet as per Speech Therapist - PT/OT Disposition: PATIENT TRANSFERRED TO TELEMETRY with ICU Attending - Tameka Cherry, PGY-1 <Angel Acevedo S - Last Filed: 07/15/17 18:07> CCU Objective - Vital Signs / Intake & Output Vital Signs (Last 4 hours): Vital Signs Temp Pulse Resp BP Pulse Ox 07/15/17 17:27 69 07/15/17 17:01 67 16 111/84 100 07/15/17 17:00 66 15 100 07/15/17 16:01 69 19 141/61 100 07/15/17 16:00 97.3 F L 70 20 100 07/15/17 15:01 65 15 146/59 L 100 07/15/17 15:00 65 13 100 Intake and Output (Last 8hrs): Intake & Output 07/15/17 07/15/17 07/15/17 06:59 14:59 22:59 Intake Total 80 300 50 Output Total 0 0 Balance 80 300 50 Intake: Intake, IV Amount 50 50 Left Antecubital 50 50 Oral 30 250 50 Output: Urine 0 0 Urine, Voided 0 0 Other: # Voids Urine, Voided 0 0 # Bowel Movements 0 0 - Medications Active Medications: Active Medications Generic Name Dose Route Start Last Admin Trade Name Freq PRN Reason Stop Dose Admin Albuterol/Ipratropium 3 ml 07/13/17 14:00 07/15/17 13:25 Duoneb 3 Mg/0.5 Mg (3 Ml) Ud INH 3 ml RQ6 JAYLA Administration Artificial Tears 0 ml 07/13/17 22:00 07/14/17 17:35 Artificial Tears OD 1 drop Q3H PRN Administration Dry eyes Aspirin 81 mg 07/15/17 10:00 07/15/17 10:53 Aspirin Chewable PO 81 mg DAILY JAYLA Administration Calcium Acetate 667 mg 07/13/17 12:00 07/15/17 17:13 Phoslo PO 667 mg TIDCC JAYLA Administration Carvedilol 6.25 mg 07/14/17 20:30 07/15/17 17:13 Coreg PO 6.25 mg BID JAYLA Administration Clopidogrel Bisulfate 75 mg 07/15/17 10:00 07/15/17 10:51 Plavix PO 75 mg DAILY JAYLA Administration Docusate Sodium 100 mg 07/15/17 10:00 07/15/17 17:13 Colace PO 100 mg TID JAYLA Administration Epoetin Kumar 10,000 unit 07/16/17 09:00 Procrit NE MWF [facility] Famotidine 20 mg 07/14/17 13:45 07/15/17 10:51 Pepcid PO 20 mg DAILY JAYLA Administration Heparin Sodium (Porcine) 5,000 units 07/13/17 22:00 07/15/17 10:50 Heparin SC 5,000 units Q12H JAYLA Administration Piperacillin Sod/Tazobactam Sod 2.25 gm in 50 mls @ 100 mls/hr 07/14/17 08:45 07/15/17 14:38 Zosyn 2.25 Gm Iv Premix IVPB 100 mls/hr Q8 [facility] Administration Protocol Insulin Human NPH 18 unit 07/15/17 10:00 07/15/17 10:50 Novolin N SC 18 unit Q12 JAYLA Administration Insulin Human Regular 0 unit 07/15/17 07:32 07/15/17 17:44 Novolin R SC 8 unit Q6 [facility] Administration Protocol Levothyroxine Sodium 50 mcg 07/14/17 06:30 07/15/17 05:50 Synthroid PO 50 mcg DAILY@0630 JAYLA Administration Prednisone 60 mg 07/14/17 15:00 07/15/17 10:51 Prednisone Tab PO 07/21/17 15:01 60 mg DAILY JAYLA Administration Rosuvastatin Calcium 10 mg 07/13/17 22:00 07/14/17 21:34 Crestor PO 10 mg HS JAYLA Administration Valacyclovir HCl 500 mg 07/14/17 18:00 07/15/17 17:12 Valtrex PO 07/20/17 18:01 500 mg Q24H JAYLA Administration Protocol - Patient Studies Lab Studies: Microbiology Studies 07/14/17 06:18 MRSA Culture (Admit) - Final Naris MRSA NOT DETECTED 07/14/17 11:26 Blood Culture - Preliminary Blood NO GROWTH AFTER 24 HOURS Lab Studies 07/15/17 07/15/17 07/15/17 Range/Units 17:37 11:22 06:06 WBC (4.8-10.8) K/uL RBC (4.40-5.90) Mil/uL Hgb (12.0-18.0) g/dL Hct (35.0-51.0) % MCV (80.0-94.0) fL MCH (27.0-31.0) pg MCHC (33.0-37.0) g/dL RDW (11.5-14.5) % Plt Count (130-400) K/uL MPV (7.2-11.7) fL Sodium (132-148) mmol/L Potassium (3.6-5.2) mmol/L Chloride (98-107) mmol/L Carbon Dioxide (22-30) mmol/L Anion Gap (10-20) BUN (9-20) mg/dL Creatinine (0.8-1.5) mg/dL Est GFR ( Amer) Est GFR (Non-Af Amer) POC Glucose (mg/dL) 307 H 366 H (65-110) mg/dL Random Glucose (75-110) mg/dL Calcium (8.6-10.4) mg/dl Phosphorus (2.5-4.5) mg/dL Magnesium (1.6-2.3) mg/dL % Saturation 25 (20-55) Ferritin ng/mL Total Bilirubin (0.2-1.3) mg/dL AST (17-59) U/L ALT (21-72) U/L Alkaline Phosphatase (38-126) U/L Total Protein (6.3-8.3) g/dL Albumin (3.5-5.0) g/dL Globulin (2.2-3.9) gm/dL Albumin/Globulin Ratio (1.0-2.1) Lyme Disease Screen index 07/15/17 07/15/17 07/15/17 Range/Units 06:06 06:06 06:06 WBC 14.1 H (4.8-10.8) K/uL RBC 2.68 L (4.40-5.90) Mil/uL Hgb 8.6 L (12.0-18.0) g/dL Hct 25.0 L (35.0-51.0) % MCV 93.2 (80.0-94.0) fL MCH 31.9 H (27.0-31.0) pg MCHC 34.2 (33.0-37.0) g/dL RDW 16.3 H (11.5-14.5) % Plt Count 267 (130-400) K/uL MPV 8.4 (7.2-11.7) fL Sodium 121 L (132-148) mmol/L Potassium 5.1 (3.6-5.2) mmol/L Chloride 82 L (98-107) mmol/L Carbon Dioxide 23 (22-30) mmol/L Anion Gap 21 H (10-20) BUN 94 H (9-20) mg/dL Creatinine 8.8 H* (0.8-1.5) mg/dL Est GFR ( Amer) 7 Est GFR (Non-Af Amer) 6 POC Glucose (mg/dL) (65-110) mg/dL Random Glucose 436 H* D (75-110) mg/dL Calcium 8.5 L (8.6-10.4) mg/dl Phosphorus 6.1 H (2.5-4.5) mg/dL Magnesium 3.0 H (1.6-2.3) mg/dL % Saturation (20-55) Ferritin 2000.0 ng/mL Total Bilirubin 0.8 (0.2-1.3) mg/dL AST 99 H D (17-59) U/L ALT 106 H (21-72) U/L Alkaline Phosphatase 135 H (38-126) U/L Total Protein 7.0 (6.3-8.3) g/dL Albumin 3.1 L (3.5-5.0) g/dL Globulin 3.9 (2.2-3.9) gm/dL Albumin/Globulin Ratio 0.8 L (1.0-2.1) Lyme Disease Screen index 07/15/17 07/15/17 07/14/17 Range/Units 05:35 05:32 23:38 WBC (4.8-10.8) K/uL RBC (4.40-5.90) Mil/uL Hgb (12.0-18.0) g/dL Hct (35.0-51.0) % MCV (80.0-94.0) fL MCH (27.0-31.0) pg MCHC (33.0-37.0) g/dL RDW (11.5-14.5) % Plt Count (130-400) K/uL MPV (7.2-11.7) fL Sodium (132-148) mmol/L Potassium (3.6-5.2) mmol/L Chloride (98-107) mmol/L Carbon Dioxide (22-30) mmol/L Anion Gap (10-20) BUN (9-20) mg/dL Creatinine (0.8-1.5) mg/dL Est GFR ( Amer) Est GFR (Non-Af Amer) POC Glucose (mg/dL) > 500 H* > 500 H* 279 H (65-110) mg/dL Random Glucose (75-110) mg/dL Calcium (8.6-10.4) mg/dl Phosphorus (2.5-4.5) mg/dL Magnesium (1.6-2.3) mg/dL % Saturation (20-55) Ferritin ng/mL Total Bilirubin (0.2-1.3) mg/dL AST (17-59) U/L ALT (21-72) U/L Alkaline Phosphatase (38-126) U/L Total Protein (6.3-8.3) g/dL Albumin (3.5-5.0) g/dL Globulin (2.2-3.9) gm/dL Albumin/Globulin Ratio (1.0-2.1) Lyme Disease Screen index 07/14/17 Range/Units 06:59 WBC (4.8-10.8) K/uL RBC (4.40-5.90) Mil/uL Hgb (12.0-18.0) g/dL Hct (35.0-51.0) % MCV (80.0-94.0) fL MCH (27.0-31.0) pg MCHC (33.0-37.0) g/dL RDW (11.5-14.5) % Plt Count (130-400) K/uL MPV (7.2-11.7) fL Sodium (132-148) mmol/L Potassium (3.6-5.2) mmol/L Chloride (98-107) mmol/L Carbon Dioxide (22-30) mmol/L Anion Gap (10-20) BUN (9-20) mg/dL Creatinine (0.8-1.5) mg/dL Est GFR ( Amer) Est GFR (Non-Af Amer) POC Glucose (mg/dL) (65-110) mg/dL Random Glucose (75-110) mg/dL Calcium (8.6-10.4) mg/dl Phosphorus (2.5-4.5) mg/dL Magnesium (1.6-2.3) mg/dL % Saturation (20-55) Ferritin ng/mL Total Bilirubin (0.2-1.3) mg/dL AST (17-59) U/L ALT (21-72) U/L Alkaline Phosphatase (38-126) U/L Total Protein (6.3-8.3) g/dL Albumin (3.5-5.0) g/dL Globulin (2.2-3.9) gm/dL Albumin/Globulin Ratio (1.0-2.1) Lyme Disease Screen <0.90 index Laboratory Results - last 24 hr 07/14/17 07/14/17 07/15/17 06:59 23:38 05:32 WBC RBC Hgb Hct MCV MCH MCHC RDW Plt Count MPV Sodium Potassium Chloride Carbon Dioxide Anion Gap BUN Creatinine Est GFR ( Amer) Est GFR (Non-Af Amer) POC Glucose (mg/dL) 279 H > 500 H* Random Glucose Calcium Phosphorus Magnesium % Saturation Ferritin Total Bilirubin AST ALT Alkaline Phosphatase Total Protein Albumin Globulin Albumin/Globulin Ratio Lyme Disease Screen <0.90 07/15/17 07/15/17 07/15/17 05:35 06:06 06:06 WBC 14.1 H RBC 2.68 L Hgb 8.6 L Hct 25.0 L MCV 93.2 MCH 31.9 H MCHC 34.2 RDW 16.3 H Plt Count 267 MPV 8.4 Sodium Potassium Chloride Carbon Dioxide Anion Gap BUN Creatinine Est GFR ( Amer) Est GFR (Non-Af Amer) POC Glucose (mg/dL) > 500 H* Random Glucose Calcium Phosphorus 6.1 H Magnesium 3.0 H % Saturation Ferritin Total Bilirubin AST ALT Alkaline Phosphatase Total Protein Albumin Globulin Albumin/Globulin Ratio Lyme Disease Screen 07/15/17 07/15/17 07/15/17 06:06 06:06 11:22 WBC RBC Hgb Hct MCV MCH MCHC RDW Plt Count MPV Sodium 121 L Potassium 5.1 Chloride 82 L Carbon Dioxide 23 Anion Gap 21 H BUN 94 H Creatinine 8.8 H* Est GFR ( Amer) 7 Est GFR (Non-Af Amer) 6 POC Glucose (mg/dL) 366 H Random Glucose 436 H* D Calcium 8.5 L Phosphorus Magnesium % Saturation 25 Ferritin 2000.0 Total Bilirubin 0.8 AST 99 H D ALT 106 H Alkaline Phosphatase 135 H Total Protein 7.0 Albumin 3.1 L Globulin 3.9 Albumin/Globulin Ratio 0.8 L Lyme Disease Screen 07/15/17 17:37 WBC RBC Hgb Hct MCV MCH MCHC RDW Plt Count MPV Sodium Potassium Chloride Carbon Dioxide Anion Gap BUN Creatinine Est GFR ( Amer) Est GFR (Non-Af Amer) POC Glucose (mg/dL) 307 H Random Glucose Calcium Phosphorus Magnesium % Saturation Ferritin Total Bilirubin AST ALT Alkaline Phosphatase Total Protein Albumin Globulin Albumin/Globulin Ratio Lyme Disease Screen Critical Care Progress Note - Nutrition Nutrition: Nutrition Category Date Time Status Dysphagia/Modified Consistency Diet [DIET] Diets 07/14/17 Lunch Active Attending/Attestation - Attestation I have personally seen and examined this patient.: Yes I have fully participated in the care of the patient.: Yes I have reviewed all pertinent clinical information: Yes Notes (Text): 07/15/17 18:06 Patient seen and examined. 76-year-old male admitted with Yu's palsy Continue steroids Continue dialysis Stable for transfer to floor
[2017-07-15] MEDS: (Novolin N) Insulin Human Isophane (NPH) 100 u/ml 10 ml vial SC SCH ×2 (10:50→21:38)
--- NOTE | 2017-07-15 12:12 | CP.PCM.PN ---
Subjective - Date & Time of Evaluation Date of Evaluation: 07/15/17 Time of Evaluation: 12:10 - Subjective Subjective: ongoing pd - APD. reports clear effluent constipated x 2 days pt awake and alert, rt sided facial droop, difficulty hearing rt ear Objective - Vital Signs/Intake and Output Vital Signs (last 24 hours): Temp Pulse Resp BP Pulse Ox 98 F 78 20 139/61 100 07/15/17 08:00 07/15/17 10:01 07/15/17 10:01 07/15/17 10:01 07/15/17 10:01 Intake and Output: 07/15/17 07/15/17 06:59 18:59 Intake Total 130 150 Output Total 0 0 Balance 130 150 - Medications Medications: Current Medications Albuterol/Ipratropium (Duoneb 3 Mg/0.5 Mg (3 Ml) Ud) 3 ml INH RQ6 [facility] Last Admin: 07/15/17 07:41 Dose: 3 ml Artificial Tears (Artificial Tears) 0 ml OD Q3H PRN PRN Reason: Dry eyes Last Admin: 07/14/17 17:35 Dose: 1 drop Aspirin (Aspirin Chewable) 81 mg PO DAILY [facility] Last Admin: 07/15/17 10:53 Dose: 81 mg Calcium Acetate (Phoslo) 667 mg PO TIDCC [facility] Last Admin: 07/15/17 07:55 Dose: 667 mg Carvedilol (Coreg) 6.25 mg PO BID [facility] Last Admin: 07/15/17 10:51 Dose: 6.25 mg Clopidogrel Bisulfate (Plavix) 75 mg PO DAILY [facility] Last Admin: 07/15/17 10:51 Dose: 75 mg Docusate Sodium (Colace) 100 mg PO TID [facility] Last Admin: 07/15/17 10:51 Dose: 100 mg Epoetin Kumar (Procrit) 10,000 unit SC MWF [facility] Famotidine (Pepcid) 20 mg PO DAILY [facility] Last Admin: 07/15/17 10:51 Dose: 20 mg Heparin Sodium (Porcine) (Heparin) 5,000 units SC Q12H [facility] Last Admin: 07/15/17 10:50 Dose: 5,000 units Piperacillin Sod/Tazobactam Sod (Zosyn 2.25 Gm Iv Premix) 2.25 gm in 50 mls @ 100 mls/hr IVPB Q8 [facility] PRN Reason: Protocol Last Admin: 07/15/17 05:46 Dose: 100 mls/hr Insulin Human NPH (Novolin N) 18 unit SC Q12 [facility] Last Admin: 07/15/17 10:50 Dose: 18 unit Insulin Human Regular (Novolin R) 0 unit SC Q6 [facility] PRN Reason: Protocol Last Admin: 07/15/17 08:03 Dose: 12 unit Levothyroxine Sodium (Synthroid) 50 mcg PO DAILY@0630 [facility] Last Admin: 07/15/17 05:50 Dose: 50 mcg Prednisone (Prednisone Tab) 60 mg PO DAILY [facility] Stop: 07/21/17 15:01 Last Admin: 07/15/17 10:51 Dose: 60 mg Rosuvastatin Calcium (Crestor) 10 mg PO HS [facility] Last Admin: 07/14/17 21:34 Dose: 10 mg Valacyclovir HCl (Valtrex) 500 mg PO Q24H [facility] PRN Reason: Protocol Stop: 07/20/17 18:01 Last Admin: 07/14/17 18:14 Dose: 500 mg - Labs Labs: 07/15/17 06:06 07/15/17 06:06 PT 12.4 SECONDS (9.7-12.2) H 07/13/17 10:35 INR 1.1 07/13/17 10:35 APTT 31 SECONDS (21-34) 07/13/17 10:35 - Constitutional Appears: No Acute Distress, Chronically Ill - Head Exam Head Exam: NORMAL INSPECTION, NORMOCEPHALIC - Eye Exam Eye Exam: Normal appearance, PERRL - ENT Exam ENT Exam: Mucous Membranes Moist, Normal Exam Additional comments: rt facial droop - Neck Exam Neck Exam: Full ROM, Normal Inspection - Respiratory Exam Respiratory Exam: Clear to Ausculation Bilateral, NORMAL BREATHING PATTERN - Cardiovascular Exam Cardiovascular Exam: REGULAR RHYTHM, RRR - GI/Abdominal Exam GI & Abdominal Exam: Distended, Soft, Hypoactive Bowel Sounds - Extremities Exam Extremities Exam: Normal Inspection - Back Exam Back Exam: NORMAL INSPECTION - Neurological Exam Neurological Exam: Alert, Awake, Oriented x3 - Psychiatric Exam Psychiatric exam: Normal Affect, Normal Mood - Skin Skin Exam: Intact, Warm Assessment and Plan (1) TIA (transient ischemic attack) Status: Acute (2) ESRD (end stage renal disease) Status: Acute (3) Heart block Status: Acute (4) Syncope Status: Acute - Assessment and Plan (Free Text) Assessment: maintain pd lactulose for constipation hyponatremia sec to hyperglycemia insulin management per primary team, on steroids perri ordered.
--- NOTE | 2017-07-15 22:42 | CP.PCM.PN ---
Subjective - Date & Time of Evaluation Date of Evaluation: 07/15/17 Time of Evaluation: 22:40 - Subjective Subjective: Patient is now feeling slightly better. The still having pain in the right facial area. Difficulties chewing noted. Patient this morning was participating in physical therapy, but was having some dizziness. Is also having some discomfort in the right ear, and the right facial area. Patient was seen by neurologist. Currently patient is on corticosteroid as well as antiviral treatment. Blood sugar is on the high side. Receiving peritoneal dialysis. We will continue the current treatment. Patient will need physical therapy strongly. We will follow the patient Aspiration precaution Objective - Vital Signs/Intake and Output Vital Signs (last 24 hours): Temp Pulse Resp BP Pulse Ox 97.5 F L 68 20 151/71 H 100 07/15/17 21:11 07/15/17 21:11 07/15/17 21:11 07/15/17 21:11 07/15/17 21:11 Intake and Output: 07/15/17 07/16/17 18:59 06:59 Intake Total 400 10 Output Total 0 Balance 400 10 - Medications Medications: Current Medications Albuterol/Ipratropium (Duoneb 3 Mg/0.5 Mg (3 Ml) Ud) 3 ml INH RQ6 [facility] Last Admin: 07/15/17 19:43 Dose: 3 ml Artificial Tears (Artificial Tears) 0 ml OD Q3H PRN PRN Reason: Dry eyes Last Admin: 07/14/17 17:35 Dose: 1 drop Aspirin (Aspirin Chewable) 81 mg PO DAILY [facility] Last Admin: 07/15/17 10:53 Dose: 81 mg Calcium Acetate (Phoslo) 667 mg PO TIDCC [facility] Last Admin: 07/15/17 17:13 Dose: 667 mg Carvedilol (Coreg) 6.25 mg PO BID [facility] Last Admin: 07/15/17 17:13 Dose: 6.25 mg Clopidogrel Bisulfate (Plavix) 75 mg PO DAILY [facility] Last Admin: 07/15/17 10:51 Dose: 75 mg Docusate Sodium (Colace) 100 mg PO TID [facility] Last Admin: 07/15/17 17:13 Dose: 100 mg Epoetin Kumar (Procrit) 10,000 unit SC [facility] [place] Famotidine (Pepcid) 20 mg PO DAILY [facility] Last Admin: 07/15/17 10:51 Dose: 20 mg Heparin Sodium (Porcine) (Heparin) 5,000 units SC Q12H [facility] Last Admin: 07/15/17 21:38 Dose: 5,000 units Piperacillin Sod/Tazobactam Sod (Zosyn 2.25 Gm Iv Premix) 2.25 gm in 50 mls @ 100 mls/hr IVPB Q8 [facility] PRN Reason: Protocol Last Admin: 07/15/17 21:38 Dose: 100 mls/hr Insulin Human NPH (Novolin N) 18 unit SC Q12 [facility] Last Admin: 07/15/17 21:38 Dose: 18 unit Insulin Human Regular (Novolin R) 0 unit SC Q6 [facility] PRN Reason: Protocol Last Admin: 07/15/17 17:44 Dose: 8 unit Levothyroxine Sodium (Synthroid) 50 mcg PO DAILY@0630 [facility] Last Admin: 07/15/17 05:50 Dose: 50 mcg Prednisone (Prednisone Tab) 60 mg PO DAILY [facility] Stop: 07/21/17 15:01 Last Admin: 07/15/17 10:51 Dose: 60 mg Rosuvastatin Calcium (Crestor) 10 mg PO HS [facility] Last Admin: 07/15/17 21:38 Dose: 10 mg Valacyclovir HCl (Valtrex) 500 mg PO Q24H [facility] PRN Reason: Protocol Stop: 07/20/17 18:01 Last Admin: 07/15/17 17:12 Dose: 500 mg - Labs Labs: 07/15/17 06:06 07/15/17 06:06 PT 12.4 SECONDS (9.7-12.2) H 07/13/17 10:35 INR 1.1 07/13/17 10:35 APTT 31 SECONDS (21-34) 07/13/17 10:35
[2017-07-16] MEDS: (Novolin R) Insulin Human Regular 100 units/ml vial SC SCH ×4 (00:44→17:49)
[2017-07-16] MEDS: Albuterol-Ipratrop 3 mg / 0.5 (3 ml) UD INH SCH ×4 (02:34→20:14)
[2017-07-16] MEDS: Piperacill/Tazo 2.25gm in Dex 2.25 GM/50 ML BAG IVPB SCH ×2 (06:39→13:35)
--- NOTE | 2017-07-16 06:56 | CON ---
DATE: 07/15/2017 REASON FOR CONSULTATION: Facial nerve weakness. HISTORY OF PRESENT ILLNESS: This is a 76-year-old male with a multiple year history of right facial nerve weakness, it is constant, mild to moderate in intensity. The patient also has hearing loss on the right, he says for 2 years; however, for past the 4 days, it has gotten considerably worse, It is constant on the right only, with mild ear pain on the right constant. PAST MEDICAL HISTORY: As noted in the chart by me. MEDICATIONS: As noted in the chart by me. ALLERGIES: NOTED IN THE CHART BY ME. PHYSICAL EXAMINATION: HEAD: Atraumatic, normocephalic. FACE: Good facial movement on the left, has decreased facial movements on the right side of the face. CONSTITUTIONAL: Well fed, well nourished. COMMUNICATION: Communicates well and appropriately. EXTERNAL NOSE AND EARS: No masses. No lesions. No erythema. No edema. INTERNAL NOSE AND EARS: Deviated septum. No masses. No lesions. No erythema. No edema. EARS: TMs intact with noted fluid behind it bilaterally. ORAL CAVITY AND OROPHARYNX: No masses. No lesions. No erythema. No edema. LIPS AND GUMS: No masses. No lesions. No erythema. No edema. NECK: Supple. THYROID: No thyromegaly, no goiter. LYMPHS: No lymphadenopathy of the neck. ASSESSMENT: 1. Facial nerve paralysis. 2. Deviated septum. 3. Hearing loss. 4. Ear pain. PLAN: Continue steroids and antiviral. CT of the temporal bone was reviewed by me, did not show any mastoiditis or otitis media. We would do MRI a.c. The patient needs to have herpes simplex, Lyme titer, varicella zoster checked. The patient to follow up as an outpatient for hearing test. Hakeem Odom MD MTDD
[2017-07-16] MEDS: Levothyroxine 50 MCG TAB PO SCH (07:39)
--- NOTE | 2017-07-16 07:40 | CP.PCM.PN ---
Subjective - Date & Time of Evaluation Date of Evaluation: 07/16/17 Time of Evaluation: 07:38 - Subjective Subjective: Mr. Brady was seen and examined at the bedside. He is alert, oriented with right facial droop and asymmetry in sensation in his right facial side. He is able to follow all simple commands. Patient has no weakness noted in all extremities. 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 Objective - Vital Signs/Intake and Output Vital Signs (last 24 hours): Temp Pulse Resp BP Pulse Ox 97.6 F 80 18 161/72 H 100 07/16/17 07:00 07/16/17 07:00 07/16/17 07:00 07/16/17 07:00 07/16/17 07:00 Intake and Output: 07/16/17 07/16/17 06:59 18:59 Intake Total 10 Balance 10 - Medications Medications: Current Medications Albuterol/Ipratropium (Duoneb 3 Mg/0.5 Mg (3 Ml) Ud) 3 ml INH RQ6 [facility] Last Admin: 07/16/17 02:34 Dose: Not Given Artificial Tears (Artificial Tears) 0 ml OD Q3H PRN PRN Reason: Dry eyes Last Admin: 07/14/17 17:35 Dose: 1 drop Aspirin (Aspirin Chewable) 81 mg PO DAILY [facility] Last Admin: 07/15/17 10:53 Dose: 81 mg Calcium Acetate (Phoslo) 667 mg PO TIDCC [facility] Last Admin: 07/15/17 17:13 Dose: 667 mg Carvedilol (Coreg) 6.25 mg PO BID [facility] Last Admin: 07/15/17 17:13 Dose: 6.25 mg Clopidogrel Bisulfate (Plavix) 75 mg PO DAILY [facility] Last Admin: 07/15/17 10:51 Dose: 75 mg Docusate Sodium (Colace) 100 mg PO TID [facility] Last Admin: 07/15/17 17:13 Dose: 100 mg Epoetin Kumar (Procrit) 10,000 unit SC MWF [facility] Famotidine (Pepcid) 20 mg PO DAILY [facility] Last Admin: 07/15/17 10:51 Dose: 20 mg Heparin Sodium (Porcine) (Heparin) 5,000 units SC Q12H [facility] Last Admin: 07/15/17 21:38 Dose: 5,000 units Piperacillin Sod/Tazobactam Sod (Zosyn 2.25 Gm Iv Premix) 2.25 gm in 50 mls @ 100 mls/hr IVPB Q8 [facility] PRN Reason: Protocol Last Admin: 07/15/17 21:38 Dose: 100 mls/hr Insulin Human NPH (Novolin N) 18 unit SC Q12 [facility] Last Admin: 07/15/17 21:38 Dose: 18 unit Insulin Human Regular (Novolin R) 0 unit SC Q6 [facility] PRN Reason: Protocol Last Admin: 07/16/17 06:40 Dose: 12 unit Levothyroxine Sodium (Synthroid) 50 mcg PO DAILY@0630 [facility] Last Admin: 07/15/17 05:50 Dose: 50 mcg Prednisone (Prednisone Tab) 60 mg PO DAILY [facility] Stop: 07/21/17 15:01 Last Admin: 07/15/17 10:51 Dose: 60 mg Rosuvastatin Calcium (Crestor) 10 mg PO HS [facility] Last Admin: 07/15/17 21:38 Dose: 10 mg Valacyclovir HCl (Valtrex) 500 mg PO Q24H [facility] PRN Reason: Protocol Stop: 07/20/17 18:01 Last Admin: 07/15/17 17:12 Dose: 500 mg - Labs Labs: 07/15/17 06:06 07/15/17 06:06 PT 12.4 SECONDS (9.7-12.2) H 07/13/17 10:35 INR 1.1 07/13/17 10:35 APTT 31 SECONDS (21-34) 07/13/17 10:35 - Constitutional Appears: No Acute Distress - Head Exam Head Exam: NORMAL INSPECTION Additional comments: right facial droop - Eye Exam Pupil Exam: PERRL - Neurological Exam Neurological Exam: Alert, Awake, Oriented x3 Neuro motor strength exam: Left Upper Extremity: 4, Right Upper Extremity: 4, Left Lower Extremity: 4, Right Lower Extremity: 4 Additional comments: alert, oriented, with right facial droop , asymmetrical facial sensation. Assessment and Plan (1) Yu palsy Assessment & Plan: Case discussed with Dr. Thompson, continue all current medical regimen. Pending [facility] results.Recommend blood pressure, glycemic control ( on prednisone therapy) , and follow up with an outpatient neurologist if right facial droop persist. Status: Acute
[2017-07-16] MEDS: EPOETIN ALFA 10,000 UNIT/ML ML SC SCH (09:19)
[2017-07-16] MEDS: (Novolin N) Insulin Human Isophane (NPH) 100 u/ml 10 ml vial SC SCH (10:19)
--- NOTE | 2017-07-16 13:51 | CP.PCM.PN ---
Subjective - Date & Time of Evaluation Date of Evaluation: 07/16/17 Time of Evaluation: 13:48 - Subjective Subjective: slightly confused noted myoclonic jerks of arms? at bedside labs pending sugars very high PD going well, no problem ROS cannot be obtained due to above Objective - Vital Signs/Intake and Output Vital Signs (last 24 hours): Temp Pulse Resp BP Pulse Ox 97.6 F 80 18 161/72 H 100 07/16/17 07:00 07/16/17 07:00 07/16/17 07:00 07/16/17 07:00 07/16/17 07:00 Intake and Output: 07/16/17 07/16/17 06:59 18:59 Intake Total 10 Balance 10 - Medications Medications: Current Medications Albuterol/Ipratropium (Duoneb 3 Mg/0.5 Mg (3 Ml) Ud) 3 ml INH RQ6 [facility] Last Admin: 07/16/17 13:41 Dose: 3 ml Artificial Tears (Artificial Tears) 0 ml OD Q3H PRN PRN Reason: Dry eyes Last Admin: 07/14/17 17:35 Dose: 1 drop Aspirin (Aspirin Chewable) 81 mg PO DAILY [facility] Last Admin: 07/16/17 10:18 Dose: 81 mg Calcium Acetate (Phoslo) 667 mg PO TIDCC [facility] Last Admin: 07/16/17 12:34 Dose: 667 mg Carvedilol (Coreg) 12.5 mg PO BID [facility] Clopidogrel Bisulfate (Plavix) 75 mg PO DAILY [facility] Last Admin: 07/16/17 10:18 Dose: 75 mg Docusate Sodium (Colace) 100 mg PO TID [facility] Last Admin: 07/16/17 13:34 Dose: 100 mg Epoetin Kumar (Procrit) 10,000 unit SC MWF [facility] Last Admin: 07/16/17 09:19 Dose: 10,000 unit Famotidine (Pepcid) 20 mg PO DAILY [facility] Last Admin: 07/16/17 10:18 Dose: 20 mg Heparin Sodium (Porcine) (Heparin) 5,000 units SC Q12H [facility] Last Admin: 07/16/17 10:19 Dose: 5,000 units Piperacillin Sod/Tazobactam Sod (Zosyn 2.25 Gm Iv Premix) 2.25 gm in 50 mls @ 100 mls/hr IVPB Q8 [facility] PRN Reason: Protocol Last Admin: 07/16/17 13:35 Dose: 100 mls/hr Insulin Human NPH (Novolin N) 18 unit SC Q12 [facility] Last Admin: 07/16/17 10:19 Dose: 18 unit Insulin Human Regular (Novolin R) 0 unit SC Q6 [facility] PRN Reason: Protocol Last Admin: 07/16/17 13:00 Dose: 10 unit Levothyroxine Sodium (Synthroid) 50 mcg PO DAILY@0630 [facility] Last Admin: 07/16/17 07:39 Dose: 50 mcg Prednisone (Prednisone Tab) 60 mg PO DAILY [facility] Stop: 07/21/17 15:01 Last Admin: 07/16/17 10:18 Dose: 60 mg Rosuvastatin Calcium (Crestor) 10 mg PO HS [facility] Last Admin: 07/15/17 21:38 Dose: 10 mg Valacyclovir HCl (Valtrex) 500 mg PO Q24H [facility] PRN Reason: Protocol Stop: 07/20/17 18:01 Last Admin: 07/15/17 17:12 Dose: 500 mg - Labs Labs: 07/15/17 06:06 07/15/17 06:06 PT 12.4 SECONDS (9.7-12.2) H 07/13/17 10:35 INR 1.1 07/13/17 10:35 APTT 31 SECONDS (21-34) 07/13/17 10:35 - Constitutional Appears: Confused - Head Exam Head Exam: ATRAUMATIC, NORMAL INSPECTION - Eye Exam Eye Exam: EOMI, Normal appearance - ENT Exam ENT Exam: Mucous Membranes Moist - Neck Exam Neck Exam: Full ROM. absent: Lymphadenopathy - Respiratory Exam Respiratory Exam: Clear to Ausculation Bilateral. absent: Accessory Muscle Use - Cardiovascular Exam Cardiovascular Exam: REGULAR RHYTHM. absent: Rubs - GI/Abdominal Exam GI & Abdominal Exam: Soft. absent: Tenderness - Extremities Exam Extremities Exam: absent: Pedal Edema - Neurological Exam Neurological Exam: Alert. absent: Oriented x3 Additional comments: jerking of arms facial assymetry Assessment and Plan - Assessment and Plan (Free Text) Assessment: Yu's palsy on steroids, hyperglycemia some confusion, ? due to steroids and glucose hyponatremia yesterday, related to glucose, repeat now
[2017-07-16 14:18] LABS: SPECIMEN SOURCE Serum
[2017-07-16 14:51] LABS: ALB/GLOB RATIO 0.8 (1.0-2.1); ALBUMIN 3.1 g/dL (3.5-5.0); CALCIUM 8.8 mg/dl (8.6-10.4)
[2017-07-16] MEDS ORDERED: (Novolin N) Insulin Human Isophane (NPH) 100 u/ml 10 ml vial SC SCH (21:06)
[2017-07-16] MEDS ORDERED: Sodium Chloride 0.9% 1,000 ML IV SCH (21:15)
--- NOTE | 2017-07-16 22:09 | CP.PCM.PN ---
Subjective - Date & Time of Evaluation Date of Evaluation: 07/16/17 Time of Evaluation: 22:07 - Subjective Subjective: Patient today this morning was confused. He also having flapping tremor His blood sugar was also noted to be elevated. He was able to eat well. She still having significant facial droop on the right side, and also dysarthria. When he is eating has a difficulty in swallowing also. But patient was able to eat this afternoon. Now having some pain in the right side of the face. He still having mild confusion. Alert awake, but he is disoriented to time. On examination: Vital signs stable. Chest good air entry regular heart sound abdominal distention secondary to peritoneal dialysis Edema negative Labs noted Elevated glucose level noted. So far the cultures are negative Patient also has a weakness of the seventh nerve on the right side Seen by neurologist. Assessment and recommendation: 76-year-old male with a history of multiple medical problems, CAD, CABG, renal insufficiency, on peritoneal dialysis, diabetes, poorly controlled, recently had complete heart block, status post pacemaker admitted now with the facial weakness, and acute Yu's palsy, now having increasing confusion. Uncontrolled diabetes. Delirium mildly noted. Will closely monitor. Peritoneal dialysis to be continued Patient is currently on prednisone, we will reduce the dose of prednisone to 40 mg daily. Glucose monitoring. Also he is on Valtrex for presumptive viral disease. Will discontinue antibiotic. Will follow the patient Objective - Vital Signs/Intake and Output Vital Signs (last 24 hours): Temp Pulse Resp BP Pulse Ox 98.2 F 77 18 143/74 94 L 07/16/17 19:30 07/16/17 19:30 07/16/17 15:00 07/16/17 19:30 07/16/17 15:00 - Medications Medications: Current Medications Albuterol/Ipratropium (Duoneb 3 Mg/0.5 Mg (3 Ml) Ud) 3 ml INH RQ6 [facility] Last Admin: 07/16/17 20:14 Dose: 3 ml Artificial Tears (Artificial Tears) 0 ml OD Q3H PRN PRN Reason: Dry eyes Last Admin: 07/14/17 17:35 Dose: 1 drop Aspirin (Aspirin Chewable) 81 mg PO DAILY [facility] Last Admin: 07/16/17 10:18 Dose: 81 mg Calcium Acetate (Phoslo) 667 mg PO TIDCC [facility] Last Admin: 07/16/17 17:48 Dose: 667 mg Carvedilol (Coreg) 12.5 mg PO BID [facility] Last Admin: 07/16/17 17:48 Dose: 12.5 mg Clopidogrel Bisulfate (Plavix) 75 mg PO DAILY [facility] Last Admin: 07/16/17 10:18 Dose: 75 mg Docusate Sodium (Colace) 100 mg PO TID [facility] Last Admin: 07/16/17 17:48 Dose: 100 mg Epoetin Kumar (Procrit) 10,000 unit SC MWF [facility] Last Admin: 07/16/17 09:19 Dose: 10,000 unit Famotidine (Pepcid) 20 mg PO DAILY [facility] Last Admin: 07/16/17 10:18 Dose: 20 mg Heparin Sodium (Porcine) (Heparin) 5,000 units SC Q12H [facility] Last Admin: 07/16/17 10:19 Dose: 5,000 units Sodium Chloride (Sodium Chloride 0.9%) 1,000 mls @ 50 mls/hr IV .Q20H [facility] Insulin Human NPH (Novolin N) 20 unit SC Q12 [facility] Insulin Human Regular (Novolin R) 0 unit SC Q6 [facility] PRN Reason: Protocol Last Admin: 07/16/17 17:49 Dose: 6 unit Levothyroxine Sodium (Synthroid) 50 mcg PO DAILY@0630 [facility] Last Admin: 07/16/17 07:39 Dose: 50 mcg Prednisone (Prednisone Tab) 40 mg PO DAILY [facility] Stop: 07/19/17 15:01 Rosuvastatin Calcium (Crestor) 10 mg PO HS [facility] Last Admin: 07/15/17 21:38 Dose: 10 mg Valacyclovir HCl (Valtrex) 500 mg PO Q24H [facility] PRN Reason: Protocol Stop: 07/20/17 18:01 Last Admin: 07/16/17 17:48 Dose: 500 mg - Labs Labs: 07/15/17 06:06 07/16/17 14:06 PT 12.4 SECONDS (9.7-12.2) H 07/13/17 10:35 INR 1.1 07/13/17 10:35 APTT 31 SECONDS (21-34) 07/13/17 10:35
[2017-07-17] MEDS: (Novolin R) Insulin Human Regular 100 units/ml vial SC SCH ×4 (00:23→17:54)
[2017-07-17] MEDS ORDERED: DiphenhydrAMINE 50 mg/ml Inj IVP ONE (01:15)
[2017-07-17] MEDS: Albuterol-Ipratrop 3 mg / 0.5 (3 ml) UD INH SCH ×4 (01:23→19:20)
[2017-07-17] MEDS: Levothyroxine 50 MCG TAB PO SCH (05:57)
[2017-07-17 07:50] LABS: BASO % 0.1 % (0.0-2.0); HEMOGLOBIN 9.4 g/dL (12.0-18.0); LYMPH # 0.9 K/uL (1.0-4.3); LYMPH % 4.9 % (20.0-40.0); MEAN CELL VOLUME 92.1 fL (80.0-94.0); MEAN CORPUSCULAR HEMOGLOBIN 31.6 pg (27.0-31.0); MEAN CORPUSCULAR HGB CONC 34.3 g/dL (33.0-37.0); MEAN PLATELET VOLUME 8.3 fL (7.2-11.7); MONO # 1.2 K/uL (0.0-0.8); MONO % 6.6 % (0.0-10.0); NEUT # 16.5 K/uL (1.8-7.0); NEUT % 88.4 % (50.0-75.0); PLATELET COUNT 281 K/uL (130-400); RBC 2.97 Mil/uL (4.40-5.90); RED CELL DISTRIBUTION WIDTH 15.6 % (11.5-14.5); WHITE BLOOD COUNT 18.7 K/uL (4.8-10.8)
--- NOTE | 2017-07-17 07:50 | CP.PCM.PN ---
Subjective - Date & Time of Evaluation Date of Evaluation: 07/17/17 Time of Evaluation: 07:50 - Subjective Subjective: Patient this morning was somewhat confused. She was able to complicate, but difficulty in communicating because of the dysarthria. He is still having some shaking. The blood sugar is elevated this morning. Insulin was adjusted. He denies any chest pain. Cough noted. Still eating thickener. Difficulty in walking On examination: Vital signs are stable. Chest good air entry, minimal expiratory wheezing Regular heart sounds. Nontender abdomen. Receiving peritoneal dialysis Today's labs reviewed Elevated LFTs noted, Valtrex, statin discontinued Blood glucose level elevated, insulin was adjusted I also spoke to the patient's family Physical therapy advised. Assessment and accommodation: 77-year-old male with a history of hypertension, CAD, CABG renal insufficiency Admitted with possibly right facial nerve weakness. Now having delirium, likely secondary to metabolic. We will discontinue the steroid because of the delirium. Closely monitor. Glucose monitoring. Physical therapy. We will follow the patient Objective - Vital Signs/Intake and Output Vital Signs (last 24 hours): Temp Pulse Resp BP Pulse Ox 97.5 F L 88 18 178/87 H 96 07/17/17 07:00 07/17/17 07:00 07/17/17 07:00 07/17/17 07:00 07/17/17 07:00 Intake and Output: 07/17/17 07/17/17 06:59 18:59 Intake Total 400 Balance 400 - Medications Medications: Current Medications Albuterol/Ipratropium (Duoneb 3 Mg/0.5 Mg (3 Ml) Ud) 3 ml INH RQ6 [facility] Last Admin: 07/17/17 07:36 Dose: 3 ml Artificial Tears (Artificial Tears) 0 ml OD Q3H PRN PRN Reason: Dry eyes Last Admin: 07/14/17 17:35 Dose: 1 drop Aspirin (Aspirin Chewable) 81 mg PO DAILY [facility] Last Admin: 07/16/17 10:18 Dose: 81 mg Calcium Acetate (Phoslo) 667 mg PO TIDCC [facility] Last Admin: 07/16/17 17:48 Dose: 667 mg Carvedilol (Coreg) 12.5 mg PO BID [facility] Last Admin: 07/16/17 17:48 Dose: 12.5 mg Clopidogrel Bisulfate (Plavix) 75 mg PO DAILY [facility] Last Admin: 07/16/17 10:18 Dose: 75 mg Docusate Sodium (Colace) 100 mg PO TID [facility] Last Admin: 07/16/17 17:48 Dose: 100 mg Epoetin Kumar (Procrit) 10,000 unit SC MWF [facility] Last Admin: 07/16/17 09:19 Dose: 10,000 unit Famotidine (Pepcid) 20 mg PO DAILY [facility] Last Admin: 07/16/17 10:18 Dose: 20 mg Heparin Sodium (Porcine) (Heparin) 5,000 units SC Q12H [facility] Last Admin: 07/16/17 22:23 Dose: 5,000 units Sodium Chloride (Sodium Chloride 0.9%) 1,000 mls @ 50 mls/hr IV .Q20H [facility] Last Admin: 07/16/17 22:26 Dose: 50 mls/hr Insulin Human Regular (Novolin R) 0 unit SC Q6 [facility] PRN Reason: Protocol Last Admin: 07/17/17 06:26 Dose: 12 unit Levothyroxine Sodium (Synthroid) 50 mcg PO DAILY@0630 [facility] Last Admin: 07/17/17 05:57 Dose: 50 mcg Prednisone (Prednisone Tab) 40 mg PO DAILY [facility] Stop: 07/19/17 15:01 Rosuvastatin Calcium (Crestor) 10 mg PO HS [facility] Last Admin: 07/16/17 22:23 Dose: 10 mg Valacyclovir HCl (Valtrex) 500 mg PO Q24H [facility] PRN Reason: Protocol Stop: 07/20/17 18:01 Last Admin: 07/16/17 17:48 Dose: 500 mg - Labs Labs: 07/15/17 06:06 07/16/17 14:06 PT 12.4 SECONDS (9.7-12.2) H 07/13/17 10:35 INR 1.1 07/13/17 10:35 APTT 31 SECONDS (21-34) 07/13/17 10:35
[2017-07-17 08:12] LABS: ALB/GLOB RATIO 0.8 (1.0-2.1); ALBUMIN 3.1 g/dL (3.5-5.0); CALCIUM 8.2 mg/dl (8.6-10.4)
[2017-07-17 08:37] LABS: LYMPHOCYTE 4 % (20-40); MONOCYTE 6 % (0-10); NEUTROPHIL 90 % (50-75); TOTAL CELLS COUNTED 100
[2017-07-17 08:38] LABS: ANISOCYTOSIS SLIGHT; PLATELET ESTIMATE NORMAL (NORMAL)
[2017-07-17 08:39] LABS: OVALOCYTES SLIGHT; TOXIC GRANULATION PRESENT
--- NOTE | 2017-07-17 10:07 | CP.PCM.PN ---
Subjective - Date & Time of Evaluation Date of Evaluation: 07/17/17 Time of Evaluation: 10:05 - Subjective Subjective: Has been restless; unable to sleep; continues with tremors PD going well BP sl increased Steroids being tapered slowly BSs elevated- on NPH insulin now LFTs increased- best to stop statins and valtrex Eating fair Objective - Vital Signs/Intake and Output Vital Signs (last 24 hours): Temp Pulse Resp BP Pulse Ox 97.5 F L 84 18 178/87 H 96 07/17/17 07:00 07/17/17 07:30 07/17/17 07:00 07/17/17 07:00 07/17/17 07:00 Intake and Output: 07/17/17 07/17/17 06:59 18:59 Intake Total 400 Balance 400 - Medications Medications: Current Medications Albuterol/Ipratropium (Duoneb 3 Mg/0.5 Mg (3 Ml) Ud) 3 ml INH RQ6 [facility] Last Admin: 07/17/17 07:36 Dose: 3 ml Artificial Tears (Artificial Tears) 0 ml OD Q3H PRN PRN Reason: Dry eyes Last Admin: 07/14/17 17:35 Dose: 1 drop Aspirin (Aspirin Chewable) 81 mg PO DAILY [facility] Last Admin: 07/16/17 10:18 Dose: 81 mg Calcium Acetate (Phoslo) 667 mg PO TIDCC [facility] Last Admin: 07/16/17 17:48 Dose: 667 mg Carvedilol (Coreg) 12.5 mg PO BID [facility] Last Admin: 07/16/17 17:48 Dose: 12.5 mg Clopidogrel Bisulfate (Plavix) 75 mg PO DAILY [facility] Last Admin: 07/16/17 10:18 Dose: 75 mg Docusate Sodium (Colace) 100 mg PO TID [facility] Last Admin: 07/16/17 17:48 Dose: 100 mg Epoetin Kumar (Procrit) 10,000 unit SC MWF [facility] Last Admin: 07/16/17 09:19 Dose: 10,000 unit Famotidine (Pepcid) 20 mg PO DAILY [facility] Last Admin: 07/16/17 10:18 Dose: 20 mg Heparin Sodium (Porcine) (Heparin) 5,000 units SC Q12H [facility] Last Admin: 07/16/17 22:23 Dose: 5,000 units Sodium Chloride (Sodium Chloride 0.9%) 1,000 mls @ 50 mls/hr IV .Q20H [facility] Last Admin: 07/16/17 22:26 Dose: 50 mls/hr Insulin Aspart (Novolog Mix 70/30 (70/30 Units/Ml)) 25 units SC QPM [facility] Insulin Human Isoph/Insulin Regular (Novolin 70/30 (70/30 Units/Ml) 10 Ml) 20 units SC QAM [facility] Insulin Human Regular (Novolin R) 0 unit SC Q6 [facility] PRN Reason: Protocol Last Admin: 07/17/17 06:26 Dose: 12 unit Levothyroxine Sodium (Synthroid) 50 mcg PO DAILY@0630 [facility] Last Admin: 07/17/17 05:57 Dose: 50 mcg Prednisone (Prednisone Tab) 40 mg PO DAILY [facility] Stop: 07/19/17 15:01 Rosuvastatin Calcium (Crestor) 10 mg PO HS [facility] Last Admin: 07/16/17 22:23 Dose: 10 mg Valacyclovir HCl (Valtrex) 500 mg PO Q24H [facility] PRN Reason: Protocol Stop: 07/20/17 18:01 Last Admin: 07/16/17 17:48 Dose: 500 mg - Labs Labs: 07/17/17 07:41 07/17/17 07:41 PT 12.4 SECONDS (9.7-12.2) H 07/13/17 10:35 INR 1.1 07/13/17 10:35 APTT 31 SECONDS (21-34) 07/13/17 10:35 - Constitutional Appears: No Acute Distress, Confused, Chronically Ill - Head Exam Head Exam: ATRAUMATIC, NORMAL INSPECTION - Eye Exam Eye Exam: EOMI, Normal appearance - Neck Exam Neck Exam: Normal Inspection. absent: Tenderness - Respiratory Exam Respiratory Exam: Clear to Ausculation Bilateral, NORMAL BREATHING PATTERN - Cardiovascular Exam Cardiovascular Exam: REGULAR RHYTHM, +S1 - GI/Abdominal Exam GI & Abdominal Exam: Soft. absent: Tenderness - Extremities Exam Extremities Exam: Normal Inspection. absent: Pedal Edema - Neurological Exam Neurological Exam: Alert, CN II-XII Intact - Skin Skin Exam: Dry, Warm Assessment and Plan (1) TIA (transient ischemic attack) Status: Acute (2) ESRD (end stage renal disease) Status: Acute (3) Heart block AV complete Status: Acute (4) Type 2 diabetes mellitus with diabetic nephropathy Status: Acute - Assessment and Plan (Free Text) Plan: Stop statins and valtrex small dose ativan at night same PD IV fluids monitor BP oral fluid restriction, BS control for hyponatremia
[2017-07-17] MEDS: Sodium Chloride 0.9% 1,000 ML IV SCH ×2 (10:10→22:04)
[2017-07-17] MEDS: (Novolin 70/30) NPH/Regular 70/30 Units/ml 10 ml vial SC SCH (10:39)
--- NOTE | 2017-07-17 14:58 | PCM.PSYCH ---
Initial Psychiatric Evaluation - Initial Psychiatric Evaluation Type of Admission: Voluntary Legal Status: Capacity Chief Complaint (in patient's own words): "I am anxious and depressed" History of Present Illness and Precipitating Events: Patient is a 76 year old male with a history of DM, HTN, Hypercholesterolemia, Hypothyroidism, history of bronchitis, CAD, status post CABG 1992, five vessel bypass also recently had a pacemaker placement 2 weeks ago for symptoms of bradycardia, end stage renal disease on peritoneal dialysis brought in by the ambulance because of the slurred speech and right facial droop. Patient is seen today by Psychiatry due to feelings of anxiety and depression. Patient is upset with all the medical problems he has been through. He is really anxious. However patient remained confused, forgetful and delirious throughout the interview. He reports hearing voices for the past 2 days. The voices are of multiple people and they are speaking nonsense to the patient. He also reports was seeing many people coming into his room. When asked who the president of [facility], patient could not answer. He could not tell the location of the hospital and his house. Patient denies suicidal ideation. Family ( and daughter) are present at bedside and say patient has been acting confused and odd for the past few days. Past medical history: Diabetes, hypertension, hypothyroidism, high cholesterol, CABG, CAD, bronchitis , peritoneal dialysis End-stage renal disease Surgical history: Coronary artery bypass grafting in 1992, five-vessel, prostatectomy, laser surgery, right leg fracture surgery, cataract surgery, also recently had a pacemaker placement Family history significant for heart disease. Recently patient's daughter also had a heart disease. Stent Social history: Nonalcoholic nonsmoker Current Medications: Active Medications Generic Name Dose Route Start Last Admin Trade Name Freq PRN Reason Stop Dose Admin Albuterol/Ipratropium 3 ml 07/13/17 14:00 07/17/17 14:28 Duoneb 3 Mg/0.5 Mg (3 Ml) Ud INH 3 ml RQ6 [facility] Administration Artificial Tears 0 ml 07/13/17 22:00 07/14/17 17:35 Artificial Tears OD 1 drop Q3H PRN Administration Dry eyes Aspirin 81 mg 07/15/17 10:00 07/17/17 10:37 Aspirin Chewable PO 81 mg DAILY [facility] Administration Calcium Acetate 667 mg 07/13/17 12:00 07/17/17 12:55 Phoslo PO 667 mg TIDCC [facility] Administration Carvedilol 12.5 mg 07/16/17 13:15 07/17/17 10:38 Coreg PO 12.5 mg BID [facility] Administration Clopidogrel Bisulfate 75 mg 07/15/17 10:00 07/17/17 10:37 Plavix PO 75 mg DAILY [facility] Administration Docusate Sodium 100 mg 07/15/17 10:00 07/17/17 14:25 Colace PO Not Given TID [facility] Epoetin Kumar 10,000 unit 07/16/17 09:00 07/16/17 09:19 Procrit SC 10,000 unit MWF [facility] Administration Famotidine 20 mg 07/14/17 13:45 07/17/17 10:38 Pepcid PO 20 mg DAILY [facility] Administration Heparin Sodium (Porcine) 5,000 units 07/13/17 22:00 07/17/17 10:38 Heparin SC 5,000 units Q12H [facility] Administration Sodium Chloride 1,000 mls @ 80 mls/hr 07/17/17 10:10 07/17/17 10:10 Sodium Chloride 0.9% IV Not Given .[id number] [facility] Insulin Aspart 25 units 07/17/17 18:00 Novolog Mix 70/30 (70/30 Units/Ml) SC QPM [facility] Insulin Human Isoph/Insulin Regular 20 units 07/17/17 10:00 07/17/17 10:39 Novolin 70/30 (70/30 Units/Ml) 10 Ml SC 20 units QAM [facility] Administration Insulin Human Regular 0 unit 07/15/17 07:32 07/17/17 13:10 Novolin R SC 8 unit Q6 [facility] Administration Protocol Levothyroxine Sodium 50 mcg 07/14/17 06:30 07/17/17 05:57 Synthroid PO 50 mcg DAILY@0630 [facility] Administration Lorazepam 0.5 mg 07/17/17 22:00 Ativan PO HS PRN Restlessness Past Psychiatric History - Past Psychiatric History Previous Treatment History: None Pertinent Medical Hx (Current Medical&Sleep Prob, Allergies): Allergies Allergy/AdvReac Type Severity Reaction Status Date / Time No Known Allergies Allergy Verified 07/13/17 10:22 Aspirin 81 mg PO DAILY 08/12/14 Atorvastatin Calcium 10 mg PO HS 08/12/14 Carvedilol 6.25 mg PO BID 08/12/14 Calcium Acetate [Phoslo] 667 mg PO TIDCC tab 06/28/17 Insulin NPH Hum/Reg Insulin Hm [Humulin 70/30 Kwikpen 70 U/ml-30 U/ml 3 ml] 30 units SC ACD 9999 Days rey 06/28/17 Insulin NPH Hum/Reg Insulin Hm [Humulin 70/30 Kwikpen] 25 unit SQ ACB 9999 Days insuln.pen 06/28/17 Ranitidine HCl 150 mg PO DAILY 9999 Days tab 06/28/17 Felodipine [Felodipine ER] 5 mg PO DAILY 07/13/17 Folic Acid/Vit B Complex and C [Sophia-Lety] 1 tab PO DAILY 07/13/17 Insulin Lispro [Humalog (Insulin Lispro)] See Protocol SQ ACHS 07/13/17 Levothyroxine [Synthroid] 50 mcg PO DAILY 07/13/17 Review of Systems - Review of Systems All systems: reviewed and no additional remarkable complaints except - Neurological Neurological: UNREMARKABLE - Psychiatric Psychiatric: Anxiety, Auditory Hallucinations, Confusion, Depression, Hopelessness, Irritability. absent: Homicidal Ideation, Memory Loss, Panic Attacks, Paranoia, Suicidal Ideation, Visual Hallucinations, Tactile Hallucinations Mental Status Examination - Personal Presentation Personal Presentation: Looks stated age - Affect Affect: Constricted - Motor Activity Motor Activity: Psychomotor Agitation - Reliability in Providing Information Reliability in Providing Information: Fair - Speech Speech: Organized - Mood Mood: Depressed, Anxious - Formal Thought Process Formal Thought Process: Paranoia, Loosening of associations - Hallucinations/Delusions Hallucinations: Auditory - Obsessions/Compulsions Obsessions: No Compulsions: No - Cognitive Functions Orientation: Person Sensorium: Alert Attention/Concentration: Easily distracted Abstract Thinking: Rochert Estimate of Intelligence: Below average Judgement: Imparied, as evidence by: Poor judgement, Imparied, as evidence by: Lack of insight into illness - Risk Risk: Diminished functioning - Strength & Assets Inventory Strength & Assets Inventory: Family support DSM 5 DX - DSM 5 DSM 5 Diagnosis: Delirium due to medical condition - Recommended/Plan of Treatment Treatment Recommendations and Plan of Treatment: Haldol 0.5 mg by mouth every 4 when necessary Psychiatry will follow-up
[2017-07-17] MEDS: (Novolog Mix 70/30) Insulin Aspart/Insulin Aspar 100 units/ml SC SCH (17:52)
[2017-07-18] MEDS: (Novolin R) Insulin Human Regular 100 units/ml vial SC SCH ×4 (00:19→18:12)
[2017-07-18] MEDS: Albuterol-Ipratrop 3 mg / 0.5 (3 ml) UD INH SCH ×4 (01:41→20:36)
[2017-07-18] MEDS: Sodium Chloride 0.9% 1,000 ML IV SCH (05:06)
[2017-07-18] MEDS: Levothyroxine 50 MCG TAB PO SCH (05:53)
--- NOTE | 2017-07-18 08:15 | CP.PCM.PN ---
Subjective - Date & Time of Evaluation Date of Evaluation: 07/18/17 Time of Evaluation: 08:12 - Subjective Subjective: Mr. Brady was seen and examined at the bedside. He is awake, confused with right facial droop. He attempts to climb over his bed and was medicated for his behavior couple times last night. He is unable to answer questions, but able to follow some commands such as opening his mouth, squeezing his hand, raising his upper extremities. He was seen by a psychiatrist yesterday with recommendations. Objective - Vital Signs/Intake and Output Vital Signs (last 24 hours): Temp Pulse Resp BP Pulse Ox 98.2 F 90 18 186/91 H 96 07/18/17 08:01 07/18/17 08:01 07/18/17 08:01 07/18/17 08:01 07/18/17 08:01 Intake and Output: 07/18/17 07/18/17 06:59 18:59 Intake Total 840 Balance 840 - Medications Medications: Current Medications Albuterol/Ipratropium (Duoneb 3 Mg/0.5 Mg (3 Ml) Ud) 3 ml INH RQ6 [facility] Last Admin: 07/18/17 07:20 Dose: 3 ml Artificial Tears (Artificial Tears) 0 ml OD Q3H PRN PRN Reason: Dry eyes Last Admin: 07/14/17 17:35 Dose: 1 drop Aspirin (Aspirin Chewable) 81 mg PO DAILY [facility] Last Admin: 07/17/17 10:37 Dose: 81 mg Calcium Acetate (Phoslo) 667 mg PO TIDCC [facility] Last Admin: 07/17/17 17:51 Dose: 667 mg Carvedilol (Coreg) 12.5 mg PO BID [facility] Last Admin: 07/17/17 17:51 Dose: 12.5 mg Clopidogrel Bisulfate (Plavix) 75 mg PO DAILY [facility] Last Admin: 07/17/17 10:37 Dose: 75 mg Docusate Sodium (Colace) 100 mg PO TID [facility] Last Admin: 07/17/17 18:00 Dose: Not Given Epoetin Kumar (Procrit) 10,000 unit SC MWF [facility] Last Admin: 07/16/17 09:19 Dose: 10,000 unit Famotidine (Pepcid) 20 mg PO DAILY [facility] Last Admin: 07/17/17 10:38 Dose: 20 mg Haloperidol (Haldol) 0.5 mg PO Q4 PRN PRN Reason: Agitation Last Admin: 07/18/17 04:39 Dose: 0.5 mg Heparin Sodium (Porcine) (Heparin) 5,000 units SC Q12H [facility] Last Admin: 07/17/17 21:30 Dose: 5,000 units Sodium Chloride (Sodium Chloride 0.9%) 1,000 mls @ 80 mls/hr IV .[id number] [facility] Last Admin: 07/18/17 05:06 Dose: 80 mls/hr Insulin Aspart (Novolog Mix 70/30 (70/30 Units/Ml)) 25 units SC QPM [facility] Last Admin: 07/17/17 17:52 Dose: 25 units Insulin Human Isoph/Insulin Regular (Novolin 70/30 (70/30 Units/Ml) 10 Ml) 20 units SC QAM [facility] Last Admin: 07/17/17 10:39 Dose: 20 units Insulin Human Regular (Novolin R) 0 unit SC Q6 [facility] PRN Reason: Protocol Last Admin: 07/18/17 06:16 Dose: 6 unit Levothyroxine Sodium (Synthroid) 50 mcg PO DAILY@0630 [facility] Last Admin: 07/18/17 05:53 Dose: 50 mcg Lorazepam (Ativan) 0.5 mg PO HS PRN PRN Reason: Restlessness Last Admin: 07/17/17 21:28 Dose: 0.5 mg - Labs Labs: 07/17/17 07:41 07/17/17 07:41 PT 12.4 SECONDS (9.7-12.2) H 07/13/17 10:35 INR 1.1 07/13/17 10:35 APTT 31 SECONDS (21-34) 07/13/17 10:35 - Constitutional Appears: No Acute Distress - Head Exam Head Exam: NORMAL INSPECTION - Eye Exam Pupil Exam: PERRL Additional comments: but sluggish - Neurological Exam Neurological Exam: Awake Neuro motor strength exam: Left Upper Extremity: 4, Right Upper Extremity: 4, Left Lower Extremity: 4, Right Lower Extremity: 4 Additional comments: awake, confused, able to follow some commands, sensation is intact. Assessment and Plan (1) Acute metabolic encephalopathy Assessment & Plan: Case discussed with Dr. Thompson, continue all current medical regimen. Recommend EEG for evaluation for possible seizure, seroquel 25 mg po q HS ( pending primary team approval), keep head of bed elevated, treat any underlying infection, electrolyte abnormalities. Status: Acute
--- NOTE | 2017-07-18 09:48 | CP.PCM.PN ---
Subjective - Date & Time of Evaluation Date of Evaluation: 07/18/17 Time of Evaluation: 09:48 - Subjective Subjective: The patient this morning while sleeping. Last night events noted. Patient was trying to climb up, and he was also confused. Patient last night given Ativan 2, and Haldol. But no improvement. He was having agitation, and anxious, also incontinence. Patient is confused. He does not remember where he was. Yesterday with a similar event in the morning. But he is answering to simple questions as well as he is following simple commands On examination now: Temperature is 98.2 pulse 90 blood pressure 186/91 saturation is 96% in room air. Chest good air entry bilaterally, minimal expiratory wheezing noted, abdomen peritoneal dialysis fluid noted Edema negative Yesterday's labs reviewed Nonspecific. Today's labs currently pending. Elevated liver enzymes noted Today's labs is currently pending. We will follow-up the labs note. We will add also ammonium level Assessment and recommendation: 77-year-old male with a history of CAD hypertension CABG. Patient recently admitted for complete heart block and status post pacemaker. Since then he is not doing well. Now again admitted with a right facial droop, and dysarthria. Likely lower motor neuron deficit. We will continue to monitor. Altered mental status and delirium, may be secondary to psychosis. Liver disease possible. Will get sonogram. Underlying medications causing possible. Uremia possible. Underlying seizure activities cannot be ruled out. We will get the EEG, CAT scan of the head again. Blood cultures will repeat. Patient was on antibiotic, which was discontinued yesterday. Also anticholesterol medication, Valtrex, prednisone, discontinued. We will closely monitor. We will follow the patient. I spoke to the patient's family details, and the plan discussed with the family Objective - Vital Signs/Intake and Output Vital Signs (last 24 hours): Temp Pulse Resp BP Pulse Ox 98.2 F 90 18 186/91 H 96 07/18/17 08:01 07/18/17 08:01 07/18/17 08:01 07/18/17 08:01 07/18/17 08:01 Intake and Output: 07/18/17 07/18/17 06:59 18:59 Intake Total 840 Balance 840 - Medications Medications: Current Medications Albuterol/Ipratropium (Duoneb 3 Mg/0.5 Mg (3 Ml) Ud) 3 ml INH RQ6 [facility] Last Admin: 07/18/17 07:20 Dose: 3 ml Artificial Tears (Artificial Tears) 0 ml OD Q3H PRN PRN Reason: Dry eyes Last Admin: 07/14/17 17:35 Dose: 1 drop Aspirin (Aspirin Chewable) 81 mg PO DAILY [facility] Last Admin: 07/17/17 10:37 Dose: 81 mg Calcium Acetate (Phoslo) 667 mg PO TIDCC [facility] Last Admin: 07/17/17 17:51 Dose: 667 mg Carvedilol (Coreg) 12.5 mg PO BID [facility] Last Admin: 07/17/17 17:51 Dose: 12.5 mg Clopidogrel Bisulfate (Plavix) 75 mg PO DAILY [facility] Last Admin: 07/17/17 10:37 Dose: 75 mg Divalproex Sodium (Depakote Dr) 250 mg PO HS [facility] Docusate Sodium (Colace) 100 mg PO TID [facility] Last Admin: 07/17/17 18:00 Dose: Not Given Epoetin Kumar (Procrit) 10,000 unit SC MWF [facility] Last Admin: 07/16/17 09:19 Dose: 10,000 unit Haloperidol (Haldol) 0.5 mg PO Q4 PRN PRN Reason: Agitation Last Admin: 07/18/17 04:39 Dose: 0.5 mg Heparin Sodium (Porcine) (Heparin) 5,000 units SC Q12H [facility] Last Admin: 07/17/17 21:30 Dose: 5,000 units Sodium Chloride (Sodium Chloride 0.9%) 1,000 mls @ 80 mls/hr IV .[id number] [facility] Last Admin: 07/18/17 05:06 Dose: 80 mls/hr Insulin Aspart (Novolog Mix 70/30 (70/30 Units/Ml)) 25 units SC QPM [facility] Last Admin: 07/17/17 17:52 Dose: 25 units Insulin Human Isoph/Insulin Regular (Novolin 70/30 (70/30 Units/Ml) 10 Ml) 20 units SC QAM [facility] Last Admin: 07/17/17 10:39 Dose: 20 units Insulin Human Regular (Novolin R) 0 unit SC Q6 [facility] PRN Reason: Protocol Last Admin: 07/18/17 06:16 Dose: 6 unit Levothyroxine Sodium (Synthroid) 50 mcg PO DAILY@0630 [facility] Last Admin: 07/18/17 05:53 Dose: 50 mcg - Labs Labs: 07/17/17 07:41 07/17/17 07:41 PT 12.4 SECONDS (9.7-12.2) H 07/13/17 10:35 INR 1.1 07/13/17 10:35 APTT 31 SECONDS (21-34) 07/13/17 10:35
--- NOTE | 2017-07-18 11:24 | US ---
HISTORY: high [facility] COMPARISON: None. TECHNIQUE: Sonographic evaluation of the abdomen. FINDINGS: LIVER: Measures 11.6 cm. Nodular contour. Normal echogenicity of the liver parenchyma. No mass. No intrahepatic bile duct dilatation. For GALLBLADDER: Unremarkable. No gallstones. COMMON BILE DUCT: Measures 4 mm. No stones. No dilatation. PANCREAS: Not well-visualized. RIGHT KIDNEY: Measures 6.3 x 3.6 x 3.4cm. Normal echogenicity. No calculus, mass, or hydronephrosis. LEFT KIDNEY: Measures 7.4 x 3.2 x 4.2cm. Upper pole cyst measuring 0.9 x 0.8 x 0.9 cm. Normal echogenicity. No calculus, mass, or hydronephrosis. SPLEEN: Normal in size and contour. No mass. AORTA: No aneurysmal dilatation. IVC: Unremarkable. OTHER FINDINGS: Small amount of ascites. IMPRESSION: Hepatic cirrhosis. Small amount of abdominal ascites. Atrophic kidneys. Small left upper pole cyst.
--- NOTE | 2017-07-18 11:33 | CT ---
PROCEDURE: CT HEAD WITHOUT CONTRAST. HISTORY: delirium COMPARISON: CT head dated 07/13/2017. TECHNIQUE: Axial computed tomography images were obtained through the head/brain without intravenous contrast. Radiation dose: Total exam DLP = 2138.1 mGy-cm. This CT exam was performed using one or more of the following dose reduction techniques: Automated exposure control, adjustment of the mA and/or kV according to patient size, and/or use of iterative reconstruction technique. FINDINGS: HEMORRHAGE: No intracranial hemorrhage. BRAIN: No mass effect or edema. Atrophy. Chronic microvascular ischemic changes. VENTRICLES: Prominent. No hydrocephalus. CALVARIUM: Unremarkable. PARANASAL SINUSES: Unremarkable as visualized. No significant inflammatory changes. MASTOID AIR CELLS: Unremarkable as visualized. No inflammatory changes. OTHER FINDINGS: None. IMPRESSION: No acute intracranial pathology. No significant interval change.
[2017-07-18] MEDS: (Novolin 70/30) NPH/Regular 70/30 Units/ml 10 ml vial SC SCH (11:39)
[2017-07-18] MEDS: EPOETIN ALFA 10,000 UNIT/ML ML SC SCH (11:39)
[2017-07-18 12:49] LABS: ALB/GLOB RATIO 0.8 (1.0-2.1); ALBUMIN 3.2 g/dL (3.5-5.0); CALCIUM 8.6 mg/dl (8.6-10.4)
[2017-07-18 12:57] LABS: BODY FLUID TYPE PERITONEAL
--- NOTE | 2017-07-18 13:13 | CP.PCM.PN ---
Subjective - Date & Time of Evaluation Date of Evaluation: 07/18/17 Time of Evaluation: 13:10 - Subjective Subjective: events noted- had been encephalopathic last PM now sleeping had received ativan and haldol ststins, valtrex stopped; steroids also stopped BP higher PD going well discussed confusional state with daughter LFT elevation about same followed by neuro- workup to be done Objective - Vital Signs/Intake and Output Vital Signs (last 24 hours): Temp Pulse Resp BP Pulse Ox 98.2 F 90 18 186/91 H 96 07/18/17 08:01 07/18/17 08:01 07/18/17 08:01 07/18/17 08:01 07/18/17 08:01 Intake and Output: 07/18/17 07/18/17 06:59 18:59 Intake Total 840 Balance 840 - Medications Medications: Current Medications Albuterol/Ipratropium (Duoneb 3 Mg/0.5 Mg (3 Ml) Ud) 3 ml INH RQ6 [facility] Last Admin: 07/18/17 13:09 Dose: Not Given Artificial Tears (Artificial Tears) 0 ml OD Q3H PRN PRN Reason: Dry eyes Last Admin: 07/14/17 17:35 Dose: 1 drop Aspirin (Aspirin Chewable) 81 mg PO DAILY [facility] Last Admin: 07/18/17 11:39 Dose: 81 mg Calcium Acetate (Phoslo) 667 mg PO TIDCC [facility] Last Admin: 07/18/17 11:39 Dose: 667 mg Carvedilol (Coreg) 12.5 mg PO BID [facility] Last Admin: 07/18/17 11:38 Dose: 12.5 mg Clopidogrel Bisulfate (Plavix) 75 mg PO DAILY [facility] Last Admin: 07/18/17 11:39 Dose: 75 mg Divalproex Sodium (Depakote Dr) 250 mg PO HS [facility] Docusate Sodium (Colace) 100 mg PO TID [facility] Last Admin: 07/18/17 11:38 Dose: 100 mg Epoetin Kumar (Procrit) 10,000 unit SC MWF [facility] Last Admin: 07/18/17 11:39 Dose: 10,000 unit Haloperidol (Haldol) 0.5 mg PO Q4 PRN PRN Reason: Agitation Last Admin: 07/18/17 04:39 Dose: 0.5 mg Heparin Sodium (Porcine) (Heparin) 5,000 units SC Q12H [facility] Last Admin: 07/18/17 11:40 Dose: 5,000 units Sodium Chloride (Sodium Chloride 0.9%) 1,000 mls @ 80 mls/hr IV .[id number] [facility] Last Admin: 07/18/17 05:06 Dose: 80 mls/hr Insulin Aspart (Novolog Mix 70/30 (70/30 Units/Ml)) 25 units SC QPM [facility] Last Admin: 07/17/17 17:52 Dose: 25 units Insulin Human Isoph/Insulin Regular (Novolin 70/30 (70/30 Units/Ml) 10 Ml) 20 units SC QAM [facility] Last Admin: 07/18/17 11:39 Dose: 20 units Insulin Human Regular (Novolin R) 0 unit SC Q6 [facility] PRN Reason: Protocol Last Admin: 07/18/17 12:12 Dose: Not Given Levothyroxine Sodium (Synthroid) 50 mcg PO DAILY@0630 [facility] Last Admin: 07/18/17 05:53 Dose: 50 mcg - Labs Labs: 07/17/17 07:41 07/18/17 12:11 PT 12.4 SECONDS (9.7-12.2) H 07/13/17 10:35 INR 1.1 07/13/17 10:35 APTT 31 SECONDS (21-34) 07/13/17 10:35 - Constitutional Appears: Confused, Chronically Ill - Head Exam Head Exam: ATRAUMATIC, NORMAL INSPECTION - Eye Exam Eye Exam: EOMI, Normal appearance - Neck Exam Neck Exam: Normal Inspection. absent: Tenderness - Respiratory Exam Respiratory Exam: Clear to Ausculation Bilateral, NORMAL BREATHING PATTERN - Cardiovascular Exam Cardiovascular Exam: REGULAR RHYTHM, +S1 - GI/Abdominal Exam GI & Abdominal Exam: Soft. absent: Tenderness - Extremities Exam Extremities Exam: Normal Inspection. absent: Tenderness - Neurological Exam Neurological Exam: Altered - Skin Skin Exam: Warm. absent: Dry Assessment and Plan (1) TIA (transient ischemic attack) Status: Acute (2) ESRD (end stage renal disease) Status: Acute (3) Heart block AV complete Status: Acute (4) Type 2 diabetes mellitus with diabetic nephropathy Status: Acute - Assessment and Plan (Free Text) Plan: Increase BP meds Recheck chemistries Agree with stopping steroids Same PD
[2017-07-18 13:37] LABS: BF GROSS APPEARANCE CLEAR (CLEAR)
[2017-07-18 15:15] LABS: HEMOGLOBIN 9.9 g/dL (12.0-18.0); MEAN CELL VOLUME 92.2 fL (80.0-94.0); MEAN CORPUSCULAR HEMOGLOBIN 30.8 pg (27.0-31.0); MEAN CORPUSCULAR HGB CONC 33.4 g/dL (33.0-37.0); MEAN PLATELET VOLUME 7.8 fL (7.2-11.7); RBC 3.22 Mil/uL (4.40-5.90); WHITE BLOOD COUNT 20.6 K/uL (4.8-10.8)
[2017-07-18] MEDS ORDERED: Dextrose 50% SYRINGE Inj (50 ml) IV STA (16:21)
[2017-07-18] MEDS ORDERED: Cefepime 1 GM in Sodium Chloride 0.9% 50 ML IVPB ONE (16:26)
[2017-07-18] MEDS ORDERED: Dextrose 50% VIAL Inj (50 ml) IV ONE ×2 (16:27→16:48)
[2017-07-18] MEDS ORDERED: Vancomycin 1 gm/NS 200 ml 1 GM/200 ML BAG IVPB ONE ×2 (17:00)
[2017-07-18 17:55] LABS: ABG ALLEN TEST NEG; ARTERIAL BLOOD GAS PCO2 40 mm/Hg (35-45); ARTERIAL BLOOD GAS PH 7.42 (7.35-7.45); ARTERIAL BLOOD GAS PO2 111 mm/Hg (80-100); ARTERIAL BLOOD GAS TCO2 27.1 mmol/L (22-28)
[2017-07-18] MEDS: (Novolog Mix 70/30) Insulin Aspart/Insulin Aspar 100 units/ml SC SCH (18:12)
[2017-07-18] MEDS ORDERED: Divalproex 250 mg DR Tab PO SCH (22:00)
[2017-07-19] MEDS: Meropenem 500 MG in Sodium Chloride 0.9% 100 ML IVPB SCH ×3 (00:25→22:35)
[2017-07-19] MEDS: (Novolin R) Insulin Human Regular 100 units/ml vial SC SCH ×4 (00:45→22:18)
[2017-07-19] MEDS: Albuterol-Ipratrop 3 mg / 0.5 (3 ml) UD INH SCH ×4 (01:42→19:04)
[2017-07-19] MEDS: Levothyroxine 50 MCG TAB PO SCH (06:13)
[2017-07-19 08:07] LABS: INFLUENZA A B NEGATIVE FOR FLU A/B (NEGATIVE)
[2017-07-19 08:42] LABS: MEAN CELL VOLUME 92.4 fL (80.0-94.0); MEAN CORPUSCULAR HEMOGLOBIN 31.4 pg (27.0-31.0); MEAN PLATELET VOLUME 8.3 fL (7.2-11.7); RBC 3.17 Mil/uL (4.40-5.90); RED CELL DISTRIBUTION WIDTH 16.1 % (11.5-14.5)
--- NOTE | 2017-07-19 08:51 | CP.PCM.CON ---
History of Present Illness - History of Present Illness History of Present Illness: Asked by Dr. Elizabeth for a GI consultation on this patient. 77 year old male with history of ESRD on peritoneal dialysis, DM, HTN, CAD/CABG s/p PPM, hypothyroidism who initially presented to hospital with change in mental status. GI called for evaluation of cirrhosis seen on recent abdominal US imaging. Patient himself is not currently able to engage in meaningful conversation due to mental status changes, additional information obtained via chart review, discussion with patient's and daughter. According to family members, he has never been notified of any prior liver disease. He does not consume ETOH and no prior history of hepatitis. There was no reported abdominal pain, nausea, vomiting, fever/chills, weight loss, jaundice, pruritis. Unclear regarding endoscopic history. Social history: non-smoker, no ETOH use Family history: reviewed, no history of GI malignancies Review of Systems - Review of Systems Systems not reviewed;Unavailable: Altered Mental Status Past Patient History - Past Medical History & Family History Past Medical History?: Yes - Past Social History Smoking Status: Never Smoked - CARDIAC Hx Hypercholesterolemia: Yes Hx Hypertension: Yes - HEENT Hx HEENT Problems: Yes Hx Cataracts: Yes - RENAL Hx Chronic Kidney Disease: Yes (STAGE 4) - ENDOCRINE/METABOLIC Hx Hypothyroidism: Yes - MUSCULOSKELETAL/RHEUMATOLOGICAL Hx Fractures: Yes (CASTED NO OR) - GENITOURINARY/GYNECOLOGICAL Hx Genitourinary Disorders: Yes Hx Prostate Problems: Yes (BPH) Other/Comment: URINARY RETENTION - PSYCHIATRIC Hx Substance Use: No - SURGICAL HISTORY Hx Coronary Artery Bypass Graft: Yes - ANESTHESIA Hx Anesthesia: Yes Hx Anesthesia Reactions: No Hx Malignant Hyperthermia: No Meds Allergies/Adverse Reactions: Allergies Allergy/AdvReac Type Severity Reaction Status Date / Time No Known Allergies Allergy Verified 07/13/17 10:22 - Medications Medications: Current Medications Albuterol/Ipratropium (Duoneb 3 Mg/0.5 Mg (3 Ml) Ud) 3 ml INH RQ6 [facility] Last Admin: 07/19/17 07:13 Dose: Not Given Artificial Tears (Artificial Tears) 0 ml OD Q3H PRN PRN Reason: Dry eyes Last Admin: 07/14/17 17:35 Dose: 1 drop Aspirin (Aspirin Chewable) 81 mg PO DAILY [facility] Last Admin: 07/18/17 11:39 Dose: 81 mg Calcium Acetate (Phoslo) 667 mg PO TIDCC [facility] Last Admin: 07/18/17 18:00 Dose: 667 mg Carvedilol (Coreg) 12.5 mg PO BID [facility] Last Admin: 07/18/17 19:00 Dose: 12.5 mg Clonidine HCl (Catapres Tts1 0.1 Mg/24 Hr) 1 patch TD Q7D@1000 [facility] Last Admin: 07/18/17 14:31 Dose: 1 patch Clopidogrel Bisulfate (Plavix) 75 mg PO DAILY [facility] Last Admin: 07/18/17 11:39 Dose: 75 mg Docusate Sodium (Colace) 100 mg PO TID [facility] Last Admin: 07/18/17 18:00 Dose: 100 mg Epoetin Kumar (Procrit) 10,000 unit SC MWF [facility] Last Admin: 07/18/17 11:39 Dose: 10,000 unit Heparin Sodium (Porcine) (Heparin) 5,000 units SC Q12H [facility] Last Admin: 07/18/17 22:37 Dose: 5,000 units Meropenem 500 mg/ Sodium (Chloride) 100 mls @ 100 mls/hr IVPB Q12H [facility] PRN Reason: Protocol Last Admin: 07/19/17 00:25 Dose: 100 mls/hr Vancomycin HCl 500 mg/ Sodium (Chloride) 100 mls @ 100 mls/hr IVPB Q48H [facility] PRN Reason: Protocol Last Admin: 07/19/17 01:55 Dose: 100 mls/hr Insulin Aspart (Novolog Mix 70/30 (70/30 Units/Ml)) 25 units SC QPM [facility] Last Admin: 07/18/17 18:12 Dose: Not Given Insulin Human Isoph/Insulin Regular (Novolin 70/30 (70/30 Units/Ml) 10 Ml) 20 units SC QAM [facility] Last Admin: 07/18/17 11:39 Dose: 20 units Insulin Human Regular (Novolin R) 0 unit SC Q6 [facility] PRN Reason: Protocol Last Admin: 07/19/17 06:20 Dose: 6 unit Lactulose (Enulose) 20 gm PO HS [facility] Last Admin: 07/18/17 22:37 Dose: 20 gm Lactulose (Generlac) 200 gm AL ONCE ONE Stop: 07/19/17 08:42 Levothyroxine Sodium (Synthroid) 50 mcg PO DAILY@0630 [facility] Last Admin: 07/19/17 06:13 Dose: 50 mcg Physical Exam - Constitutional Appears: Non-toxic, Confused - Head Exam Head Exam: NORMAL INSPECTION - Eye Exam Eye Exam: Normal appearance - ENT Exam ENT Exam: Mucous Membranes Moist - Respiratory Exam Respiratory Exam: Clear to Auscultation Bilateral - Cardiovascular Exam Cardiovascular Exam: +S1, +S2 Additional comments: + PPM on left anterior chest wall + CABG scar - GI/Abdominal Exam GI & Abdominal Exam: Normal Bowel Sounds, Soft Additional comments: non tender to palpation in four quadrants no palpable hepato/splenomegaly RLQ peritoneal dialysis catheter - Extremities Exam Additional comments: trace b/l lower extremity pedal edema - Neurological Exam Additional comments: unable to participate in neurological exam - Psychiatric Exam Additional comments: unable to assess - Skin Skin Exam: Dry, Intact, Normal Color, Warm Results - Vital Signs Recent Vital Signs: Last Vital Signs Temp 98.3 F 07/19/17 07:00 Pulse 98 H 07/19/17 07:26 Resp 18 07/19/17 07:00 BP 181/89 H 07/19/17 07:00 Pulse Ox 100 07/19/17 07:00 - Labs Result Diagrams: 07/18/17 15:12 07/18/17 12:11 Labs: Laboratory Results - last 24 hr 07/17/17 07/18/17 07/18/17 23:56 06:12 11:16 WBC RBC Hgb Hct MCV MCH MCHC RDW Plt Count MPV Puncture Site pCO2 pO2 HCO3 ABG pH ABG Total CO2 ABG O2 Saturation ABG Base Excess Navin Test ABG Potassium A-a O2 Difference Respiratory Index Glucose Lactate Liter Flow Mechanical Rate FiO2 Sodium Potassium Chloride Carbon Dioxide Anion Gap BUN Creatinine Est GFR ( Amer) Est GFR (Non-Af Amer) POC Glucose (mg/dL) 234 H 289 H 143 H Random Glucose Calcium Phosphorus Magnesium Total Bilirubin AST ALT Alkaline Phosphatase Ammonia Total Protein Albumin Globulin Albumin/Globulin Ratio Arterial Blood Potassium Fluid Source Fluid Appearance Fluid WBC Fluid RBC Fluid Tot Cell Count Fld Monocyte/Macrophag Fluid Comment Influenza Typ A,B (EIA) 07/18/17 07/18/17 07/18/17 11:21 12:11 12:57 WBC RBC Hgb Hct MCV MCH MCHC RDW Plt Count MPV Puncture Site pCO2 pO2 HCO3 ABG pH ABG Total CO2 ABG O2 Saturation ABG Base Excess Navin Test ABG Potassium A-a O2 Difference Respiratory Index Glucose Lactate Liter Flow Mechanical Rate FiO2 Sodium 134 Potassium 3.7 Chloride 93 L Carbon Dioxide 25 Anion Gap 20 BUN 74 H Creatinine 7.7 H* Est GFR ( Amer) 8 Est GFR (Non-Af Amer) 7 POC Glucose (mg/dL) Random Glucose 123 H Calcium 8.6 Phosphorus 5.5 H Magnesium 2.4 H Total Bilirubin 0.6 AST 92 H ALT 151 H Alkaline Phosphatase 157 H Ammonia < 9 L Total Protein 7.1 Albumin 3.2 L Globulin 3.9 Albumin/Globulin Ratio 0.8 L Arterial Blood Potassium Fluid Source Peritoneal Fluid Appearance Clear Fluid WBC 1.0 Fluid RBC 3.0 H Fluid Tot Cell Count TEST NOT PERFORMED Fld Monocyte/Macrophag TEST NOT PERFORMED Fluid Comment Influenza Typ A,B (EIA) 07/18/17 07/18/17 07/18/17 15:12 16:10 16:12 WBC 20.6 H RBC 3.22 L Hgb 9.9 L Hct 29.7 L MCV 92.2 MCH 30.8 MCHC 33.4 RDW 16.0 H Plt Count 302 MPV 7.8 Puncture Site pCO2 pO2 HCO3 ABG pH ABG Total CO2 ABG O2 Saturation ABG Base Excess Navin Test ABG Potassium A-a O2 Difference Respiratory Index Glucose Lactate Liter Flow Mechanical Rate FiO2 Sodium Potassium Chloride Carbon Dioxide Anion Gap BUN Creatinine Est GFR ( Amer) Est GFR (Non-Af Amer) POC Glucose (mg/dL) 56 L 52 L Random Glucose Calcium Phosphorus Magnesium Total Bilirubin AST ALT Alkaline Phosphatase Ammonia Total Protein Albumin Globulin Albumin/Globulin Ratio Arterial Blood Potassium Fluid Source Fluid Appearance Fluid WBC Fluid RBC Fluid Tot Cell Count Fld Monocyte/Macrophag Fluid Comment Influenza Typ A,B (EIA) 07/18/17 07/18/17 07/18/17 16:49 17:50 21:41 WBC RBC Hgb Hct MCV MCH MCHC RDW Plt Count MPV Puncture Site Rbrachial pCO2 40 pO2 111 H HCO3 26.0 ABG pH 7.42 ABG Total CO2 27.1 ABG O2 Saturation 99.0 H ABG Base Excess 1.3 Navin Test Neg ABG Potassium 3.5 L A-a O2 Difference 53.0 Respiratory Index 0.5 Glucose 101 Lactate 1.0 Liter Flow 2.5 Mechanical Rate 16 FiO2 30.0 Sodium 131.0 L Potassium Chloride 98.0 Carbon Dioxide Anion Gap BUN Creatinine Est GFR ( Amer) Est GFR (Non-Af Amer) POC Glucose (mg/dL) 141 H 108 Random Glucose Calcium Phosphorus Magnesium Total Bilirubin AST ALT Alkaline Phosphatase Ammonia Total Protein Albumin Globulin Albumin/Globulin Ratio Arterial Blood Potassium 3.5 L Fluid Source Fluid Appearance Fluid WBC Fluid RBC Fluid Tot Cell Count Fld Monocyte/Macrophag Fluid Comment Influenza Typ A,B (EIA) 07/18/17 07/19/17 07/19/17 23:18 00:12 06:18 WBC RBC Hgb Hct MCV MCH MCHC RDW Plt Count MPV Puncture Site pCO2 pO2 HCO3 ABG pH ABG Total CO2 ABG O2 Saturation ABG Base Excess Navin Test ABG Potassium A-a O2 Difference Respiratory Index Glucose Lactate Liter Flow Mechanical Rate FiO2 Sodium Potassium Chloride Carbon Dioxide Anion Gap BUN Creatinine Est GFR ( Amer) Est GFR (Non-Af Amer) POC Glucose (mg/dL) 219 H 297 H Random Glucose Calcium Phosphorus Magnesium Total Bilirubin AST ALT Alkaline Phosphatase Ammonia Total Protein Albumin Globulin Albumin/Globulin Ratio Arterial Blood Potassium Fluid Source Fluid Appearance Fluid WBC Fluid RBC Fluid Tot Cell Count Fld Monocyte/Macrophag Fluid Comment Influenza Typ A,B (EIA) Negative for flu a/b Assessment & Plan - Assessment and Plan (Free Text) Assessment: ESRD on peritoneal dialysis HTN / DM CAD s/p CABG and PPM Hypothyroidism Altered mental status, acute CVA vs HE Cirrhosis - unclear etiology Plan: - NPO - Recommend NGT placement with administration of lactulose. For time being may also give rectal dose, obtain ammonia level. - Obtain viral hepatitis panel - Obtain autoimmune panel and continue to monitor LFTs - Follow up repeat blood cultures and ID recommendations - Follow up neurology recommendations - Will continue to monitor patient clinical course
[2017-07-19] MEDS ORDERED: Lactulose 10 gm/15 ml (Rectal Use) PR ONE (09:15)
[2017-07-19 09:40] LABS: HEPATITIS B SURFACE AG Negative (NEGATIVE)
[2017-07-19 09:41] LABS: ALB/GLOB RATIO 0.9 (1.0-2.1); ALBUMIN 3.2 g/dL (3.5-5.0); CALCIUM 8.6 mg/dl (8.6-10.4)
[2017-07-19 09:49] LABS: HEPATITIS A IGM NEGATIVE (NEGATIVE); HEPATITIS B CORE AB NEGATIVE (NEGATIVE)
[2017-07-19 09:58] LABS: HEPATITIS C ANTIBODY NEGATIVE (NEGATIVE)
--- NOTE | 2017-07-19 10:51 | CP.PCM.PN ---
Subjective - Date & Time of Evaluation Date of Evaluation: 07/19/17 Time of Evaluation: 10:48 - Subjective Subjective: remains confused at bedside NG tube in for medication administration labs reviewed cannot obtain ROS Objective - Vital Signs/Intake and Output Vital Signs (last 24 hours): Temp Pulse Resp BP Pulse Ox 98.3 F 98 H 18 181/89 H 100 07/19/17 07:00 07/19/17 07:26 07/19/17 07:00 07/19/17 07:00 07/19/17 07:00 Intake and Output: 07/19/17 07/19/17 06:59 18:59 Intake Total 250 Balance 250 - Medications Medications: Current Medications Albuterol/Ipratropium (Duoneb 3 Mg/0.5 Mg (3 Ml) Ud) 3 ml INH RQ6 [facility] Last Admin: 07/19/17 07:13 Dose: Not Given Artificial Tears (Artificial Tears) 0 ml OD Q3H PRN PRN Reason: Dry eyes Last Admin: 07/14/17 17:35 Dose: 1 drop Aspirin (Aspirin Chewable) 81 mg PO DAILY [facility] Last Admin: 07/18/17 11:39 Dose: 81 mg Calcium Acetate (Phoslo) 667 mg PO TIDCC [facility] Last Admin: 07/19/17 09:06 Dose: Not Given Carvedilol (Coreg) 12.5 mg PO BID [facility] Last Admin: 07/18/17 19:00 Dose: 12.5 mg Clonidine HCl (Catapres Tts1 0.1 Mg/24 Hr) 1 patch TD Q7D@1000 [facility] Last Admin: 07/18/17 14:31 Dose: 1 patch Clopidogrel Bisulfate (Plavix) 75 mg PO DAILY [facility] Last Admin: 07/18/17 11:39 Dose: 75 mg Docusate Sodium (Colace) 100 mg PO TID [facility] Last Admin: 07/18/17 18:00 Dose: 100 mg Epoetin Kumar (Procrit) 10,000 unit SC MWF [facility] Last Admin: 07/18/17 11:39 Dose: 10,000 unit Heparin Sodium (Porcine) (Heparin) 5,000 units SC Q12H [facility] Last Admin: 07/18/17 22:37 Dose: 5,000 units Meropenem 500 mg/ Sodium (Chloride) 100 mls @ 100 mls/hr IVPB Q12H [facility] PRN Reason: Protocol Last Admin: 07/19/17 00:25 Dose: 100 mls/hr Vancomycin HCl 500 mg/ Sodium (Chloride) 100 mls @ 100 mls/hr IVPB Q48H [facility] PRN Reason: Protocol Last Admin: 07/19/17 01:55 Dose: 100 mls/hr Insulin Human Regular (Novolin R) 0 unit SC Q6 [facility] PRN Reason: Protocol Last Admin: 07/19/17 06:20 Dose: 6 unit Lactulose (Enulose) 20 gm PO Q8 [facility] Stop: 07/21/17 14:01 Levothyroxine Sodium (Synthroid) 50 mcg PO DAILY@0630 [facility] Last Admin: 07/19/17 06:13 Dose: 50 mcg - Labs Labs: 07/19/17 08:31 07/19/17 08:31 PT 12.4 SECONDS (9.7-12.2) H 07/13/17 10:35 INR 1.1 07/13/17 10:35 APTT 31 SECONDS (21-34) 07/13/17 10:35 - Constitutional Appears: No Acute Distress, Confused, Chronically Ill - Head Exam Head Exam: ATRAUMATIC - Eye Exam Eye Exam: EOMI - ENT Exam ENT Exam: Mucous Membranes Moist - Neck Exam Neck Exam: Full ROM. absent: Lymphadenopathy - Respiratory Exam Respiratory Exam: Decreased Breath Sounds - Cardiovascular Exam Cardiovascular Exam: REGULAR RHYTHM Additional comments: + pacemaker - GI/Abdominal Exam GI & Abdominal Exam: Distended, Soft - Extremities Exam Extremities Exam: absent: Pedal Edema - Neurological Exam Neurological Exam: absent: Oriented x3 Additional comments: facial palsy Assessment and Plan - Assessment and Plan (Free Text) Assessment: esrd on PD Yu's palsy metabolic encephalopathy cirrhosis? treatment with lactulose probable need for LP continue same PD
--- NOTE | 2017-07-19 13:06 | CP.PCM.PN ---
Subjective - Date & Time of Evaluation Date of Evaluation: 07/19/17 Time of Evaluation: 13:02 - Subjective Subjective: Patient is still sleepy, drowsy this morning. Last night the patient was very restless. He did not sleep well again. He did not receive any sedatives yesterday. Unable to eat anything by mouth. Still spelled speech noted. Slight neck stiffness present. Attempted NG tube this morning, patient was having gagging and coughing. Currently has NG tube. Medications being administered. On examination: Chest good air entry, but minimal rales and wheezing noted Regular heart sound Abdomen nontender. Having peritoneal dialysis He is responding to simple questions. No leg edema Patient is moving all 4 extremities. Patient's labs reviewed WBC slight improvement Peritoneal fluid negative Serology negative for haemophilus, HIV Immunochemistry negative blood gas analysis nonspecific yesterday This morning chest x-ray showing possibly left lateral pneumonia and aspiration likely. 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 Now having severe metabolic encephalopathy, associated with possible aspiration pneumonia. On antibiotic currently. The cause for metabolic encephalopathy underlying liver disease cannot be ruled out. Lactulose ordered. Further workup pending. Appreciate infectious disease and shop fitter opinion. Will follow the patient. We will start the patient NG tube feeding for now Objective - Vital Signs/Intake and Output Vital Signs (last 24 hours): Temp Pulse Resp BP Pulse Ox 98.3 F 98 H 18 181/89 H 100 07/19/17 07:00 07/19/17 07:26 07/19/17 07:00 07/19/17 07:00 07/19/17 07:00 Intake and Output: 07/19/17 07/19/17 06:59 18:59 Intake Total 250 Balance 250 - Medications Medications: Current Medications Albuterol/Ipratropium (Duoneb 3 Mg/0.5 Mg (3 Ml) Ud) 3 ml INH RQ6 [facility] Last Admin: 07/19/17 07:13 Dose: Not Given Artificial Tears (Artificial Tears) 0 ml OD Q3H PRN PRN Reason: Dry eyes Last Admin: 07/14/17 17:35 Dose: 1 drop Aspirin (Aspirin Chewable) 81 mg PO DAILY [facility] Last Admin: 07/19/17 11:20 Dose: Not Given Calcium Acetate (Phoslo) 667 mg PO TIDCC [facility] Last Admin: 07/19/17 09:06 Dose: Not Given Carvedilol (Coreg) 12.5 mg PO BID [facility] Last Admin: 07/19/17 11:20 Dose: Not Given Clonidine HCl (Catapres Tts1 0.1 Mg/24 Hr) 1 patch TD Q7D@1000 [facility] Last Admin: 07/18/17 14:31 Dose: 1 patch Clopidogrel Bisulfate (Plavix) 75 mg PO DAILY [facility] Last Admin: 07/19/17 11:21 Dose: Not Given Docusate Sodium (Colace) 100 mg PO TID [facility] Last Admin: 07/19/17 11:20 Dose: Not Given Epoetin Kumar (Procrit) 10,000 unit SC MWF [facility] Last Admin: 07/18/17 11:39 Dose: 10,000 unit Heparin Sodium (Porcine) (Heparin) 5,000 units SC Q12H [facility] Last Admin: 07/19/17 10:35 Dose: 5,000 units Meropenem 500 mg/ Sodium (Chloride) 100 mls @ 100 mls/hr IVPB Q12H [facility] PRN Reason: Protocol Last Admin: 07/19/17 12:16 Dose: 100 mls/hr Vancomycin HCl 500 mg/ Sodium (Chloride) 100 mls @ 100 mls/hr IVPB Q48H [facility] PRN Reason: Protocol Last Admin: 07/19/17 01:55 Dose: 100 mls/hr Insulin Human Regular (Novolin R) 0 unit SC Q6 [facility] PRN Reason: Protocol Last Admin: 07/19/17 12:38 Dose: Not Given Lactulose (Enulose) 20 gm PO Q8 [facility] Stop: 07/21/17 14:01 Levothyroxine Sodium (Synthroid) 50 mcg PO DAILY@0630 [facility] Last Admin: 07/19/17 06:13 Dose: 50 mcg - Labs Labs: 07/19/17 08:31 07/19/17 08:31 PT 12.4 SECONDS (9.7-12.2) H 07/13/17 10:35 INR 1.1 07/13/17 10:35 APTT 31 SECONDS (21-34) 07/13/17 10:35
--- NOTE | 2017-07-19 14:00 | CP.PCM.CON ---
History of Present Illness - History of Present Illness History of Present Illness: INFECTIOUS DISEASE CONSULT; CHART REVIEWED. CONSULTANTS NOTED LABS AND RADIOLOGY NOTED. DICTATED;DICTATION NO; #[id number] IMPRESSION; .ALTERED MENTAL STATUS / RT BELLS PALSY RT.EAR PAIN /HEADACHE ?NUCHAL RIGIDITY R/O MENINGO-ENCEPHALITIS (VIRAL -HSV I/2 VS AUTOIMMUNE ENCEPHALITIS VS BACTERIAL ) CIRRHOSIS OF LIVER /ASCITES -?AUTOIMMUNE LEUKOCYTOSIS R/O SEPTICEMIA S/P RECENT PERMANENT PACEMAKER(2WKS AGO ) R/O SBE. ESRD ON PD PLAN. PANCULTURE. RPR INFLUENZA a AND b mYCOPLASMA iGm hiv-1 AND 2AG/AB C2,C4,CH50. 2-D ECHOR/O VEGS CRYPTOCOCCAL ANTIGEN. iMMUNOGLOBULINS AND iGg HSV1/2 IGM, IGG sEROLOGY WNV iGm AND iGg SEROLOGY SERUM NMDA-RECEPTOR ANTIBODIES IN SERUM ARBOVIRUSES. START iv mERREM 500 EVERY 12 HOURLY 07/18/17. CONTINUE iv VANCOMYCIN 500 EVERY 48 HOURLY 07/17/17. ADD iv AMPICILLIN IV 500 EVERY 8 HOURLY 07/20/17. 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 CASE DISCUSSED WITH PMD /STAFF AND FAMILY. DROPLET PRECAUTIONS. WILL F/U WITH YOU. Past Patient History - Past Medical History & Family History Past Medical History?: Yes - Past Social History Smoking Status: Never Smoked - CARDIAC Hx Hypercholesterolemia: Yes Hx Hypertension: Yes - HEENT Hx HEENT Problems: Yes Hx Cataracts: Yes - RENAL Hx Chronic Kidney Disease: Yes (STAGE 4) - ENDOCRINE/METABOLIC Hx Hypothyroidism: Yes - MUSCULOSKELETAL/RHEUMATOLOGICAL Hx Fractures: Yes (CASTED NO OR) - GENITOURINARY/GYNECOLOGICAL Hx Genitourinary Disorders: Yes Hx Prostate Problems: Yes (BPH) Other/Comment: URINARY RETENTION - PSYCHIATRIC Hx Substance Use: No - SURGICAL HISTORY Hx Coronary Artery Bypass Graft: Yes - ANESTHESIA Hx Anesthesia: Yes Hx Anesthesia Reactions: No Hx Malignant Hyperthermia: No Meds Allergies/Adverse Reactions: Allergies Allergy/AdvReac Type Severity Reaction Status Date / Time No Known Allergies Allergy Verified 07/13/17 10:22 - Medications Medications: Current Medications Albuterol/Ipratropium (Duoneb 3 Mg/0.5 Mg (3 Ml) Ud) 3 ml INH RQ6 [facility] Last Admin: 07/19/17 13:06 Dose: Not Given Artificial Tears (Artificial Tears) 0 ml OD Q3H PRN PRN Reason: Dry eyes Last Admin: 07/14/17 17:35 Dose: 1 drop Aspirin (Aspirin Chewable) 81 mg PO DAILY [facility] Last Admin: 07/19/17 11:20 Dose: Not Given Calcium Acetate (Phoslo) 667 mg PO TIDCC [facility] Last Admin: 07/19/17 09:06 Dose: Not Given Carvedilol (Coreg) 12.5 mg PO BID [facility] Last Admin: 07/19/17 11:20 Dose: Not Given Clonidine HCl (Catapres Tts1 0.1 Mg/24 Hr) 1 patch TD Q7D@1000 [facility] Last Admin: 07/18/17 14:31 Dose: 1 patch Clopidogrel Bisulfate (Plavix) 75 mg PO DAILY [facility] Last Admin: 07/19/17 11:21 Dose: Not Given Docusate Sodium (Colace) 100 mg PO TID [facility] Last Admin: 07/19/17 11:20 Dose: Not Given Epoetin Kumar (Procrit) 10,000 unit SC MWF [facility] Last Admin: 07/18/17 11:39 Dose: 10,000 unit Heparin Sodium (Porcine) (Heparin) 5,000 units SC Q12H [facility] Last Admin: 07/19/17 10:35 Dose: 5,000 units Meropenem 500 mg/ Sodium (Chloride) 100 mls @ 100 mls/hr IVPB Q12H [facility] PRN Reason: Protocol Last Admin: 07/19/17 12:16 Dose: 100 mls/hr Vancomycin HCl 500 mg/ Sodium (Chloride) 100 mls @ 100 mls/hr IVPB Q48H [facility] PRN Reason: Protocol Last Admin: 07/19/17 01:55 Dose: 100 mls/hr Insulin Human Regular (Novolin R) 0 unit SC Q6 [facility] PRN Reason: Protocol Last Admin: 07/19/17 12:38 Dose: Not Given Lactulose (Enulose) 20 gm PO Q8 [facility] Stop: 07/21/17 14:01 Levothyroxine Sodium (Synthroid) 50 mcg PO DAILY@0630 [facility] Last Admin: 07/19/17 06:13 Dose: 50 mcg Results - Vital Signs Recent Vital Signs: Last Vital Signs Temp 98.3 F 07/19/17 07:00 Pulse 98 H 07/19/17 07:26 Resp 18 07/19/17 07:00 BP 181/89 H 07/19/17 07:00 Pulse Ox 100 07/19/17 07:00 - Labs Result Diagrams: 07/19/17 08:31 07/19/17 08:31 Labs: Laboratory Results - last 24 hr 07/17/17 07/18/17 07/18/17 23:56 06:12 15:12 WBC 20.6 H RBC 3.22 L Hgb 9.9 L Hct 29.7 L MCV 92.2 MCH 30.8 MCHC 33.4 RDW 16.0 H Plt Count 302 MPV 7.8 Puncture Site pCO2 pO2 HCO3 ABG pH ABG Total CO2 ABG O2 Saturation ABG Base Excess Navin Test ABG Potassium A-a O2 Difference Respiratory Index Sodium Chloride Glucose Lactate Liter Flow Mechanical Rate FiO2 Potassium Carbon Dioxide Anion Gap BUN Creatinine Est GFR ( Amer) Est GFR (Non-Af Amer) POC Glucose (mg/dL) 234 H 289 H Random Glucose Calcium Phosphorus Magnesium Total Bilirubin AST ALT Alkaline Phosphatase Ammonia Total Protein Albumin Globulin Albumin/Globulin Ratio Alpha Fetoprotein Arterial Blood Potassium IgG Complement C4 Hepatitis A IgM Ab Hep Bs Antigen Hep B Core IgM Ab Hepatitis C Antibody HIV 1&2 Antibody Screen Influenza Typ A,B (EIA) Ur L.pneumophila Ag 07/18/17 07/18/17 07/18/17 16:10 16:12 16:49 WBC RBC Hgb Hct MCV MCH MCHC RDW Plt Count MPV Puncture Site pCO2 pO2 HCO3 ABG pH ABG Total CO2 ABG O2 Saturation ABG Base Excess Navin Test ABG Potassium A-a O2 Difference Respiratory Index Sodium Chloride Glucose Lactate Liter Flow Mechanical Rate FiO2 Potassium Carbon Dioxide Anion Gap BUN Creatinine Est GFR ( Amer) Est GFR (Non-Af Amer) POC Glucose (mg/dL) 56 L 52 L 141 H Random Glucose Calcium Phosphorus Magnesium Total Bilirubin AST ALT Alkaline Phosphatase Ammonia Total Protein Albumin Globulin Albumin/Globulin Ratio Alpha Fetoprotein Arterial Blood Potassium IgG Complement C4 Hepatitis A IgM Ab Hep Bs Antigen Hep B Core IgM Ab Hepatitis C Antibody HIV 1&2 Antibody Screen Influenza Typ A,B (EIA) Ur L.pneumophila Ag 07/18/17 07/18/17 07/18/17 17:50 21:41 23:18 WBC RBC Hgb Hct MCV MCH MCHC RDW Plt Count MPV Puncture Site Rbrachial pCO2 40 pO2 111 H HCO3 26.0 ABG pH 7.42 ABG Total CO2 27.1 ABG O2 Saturation 99.0 H ABG Base Excess 1.3 Navin Test Neg ABG Potassium 3.5 L A-a O2 Difference 53.0 Respiratory Index 0.5 Sodium 131.0 L Chloride 98.0 Glucose 101 Lactate 1.0 Liter Flow 2.5 Mechanical Rate 16 FiO2 30.0 Potassium Carbon Dioxide Anion Gap BUN Creatinine Est GFR ( Amer) Est GFR (Non-Af Amer) POC Glucose (mg/dL) 108 Random Glucose Calcium Phosphorus Magnesium Total Bilirubin AST ALT Alkaline Phosphatase Ammonia Total Protein Albumin Globulin Albumin/Globulin Ratio Alpha Fetoprotein Arterial Blood Potassium 3.5 L IgG Complement C4 Hepatitis A IgM Ab Hep Bs Antigen Hep B Core IgM Ab Hepatitis C Antibody HIV 1&2 Antibody Screen Influenza Typ A,B (EIA) Negative for flu a/b Ur L.pneumophila Ag 07/19/17 07/19/17 07/19/17 00:12 06:18 08:31 WBC 19.0 H RBC 3.17 L Hgb 10.0 L Hct 29.3 L MCV 92.4 MCH 31.4 H MCHC 34.0 RDW 16.1 H Plt Count 286 MPV 8.3 Puncture Site pCO2 pO2 HCO3 ABG pH ABG Total CO2 ABG O2 Saturation ABG Base Excess Navin Test ABG Potassium A-a O2 Difference Respiratory Index Sodium Chloride Glucose Lactate Liter Flow Mechanical Rate FiO2 Potassium Carbon Dioxide Anion Gap BUN Creatinine Est GFR ( Amer) Est GFR (Non-Af Amer) POC Glucose (mg/dL) 219 H 297 H Random Glucose Calcium Phosphorus Magnesium Total Bilirubin AST ALT Alkaline Phosphatase Ammonia Total Protein Albumin Globulin Albumin/Globulin Ratio Alpha Fetoprotein Arterial Blood Potassium IgG Complement C4 Hepatitis A IgM Ab Hep Bs Antigen Hep B Core IgM Ab Hepatitis C Antibody HIV 1&2 Antibody Screen Influenza Typ A,B (EIA) Ur L.pneumophila Ag 07/19/17 07/19/17 07/19/17 08:31 08:31 08:31 WBC RBC Hgb Hct MCV MCH MCHC RDW Plt Count MPV Puncture Site pCO2 pO2 HCO3 ABG pH ABG Total CO2 ABG O2 Saturation ABG Base Excess Navin Test ABG Potassium A-a O2 Difference Respiratory Index Sodium 132 Chloride 90 L Glucose Lactate Liter Flow Mechanical Rate FiO2 Potassium 3.6 Carbon Dioxide 25 Anion Gap 20 BUN 67 H Creatinine 7.8 H* Est GFR ( Amer) 8 Est GFR (Non-Af Amer) 7 POC Glucose (mg/dL) Random Glucose 248 H Calcium 8.6 Phosphorus 5.4 H Magnesium 2.2 Total Bilirubin 0.4 AST 58 ALT 126 H Alkaline Phosphatase 146 H Ammonia Total Protein 6.9 Albumin 3.2 L Globulin 3.7 Albumin/Globulin Ratio 0.9 L Alpha Fetoprotein Arterial Blood Potassium IgG Complement C4 Hepatitis A IgM Ab Negative Hep Bs Antigen Negative Hep B Core IgM Ab Negative Hepatitis C Antibody Negative Negative HIV 1&2 Antibody Screen Influenza Typ A,B (EIA) Ur L.pneumophila Ag 07/19/17 07/19/17 07/19/17 08:31 08:31 08:31 WBC RBC Hgb Hct MCV MCH MCHC RDW Plt Count MPV Puncture Site pCO2 pO2 HCO3 ABG pH ABG Total CO2 ABG O2 Saturation ABG Base Excess Navin Test ABG Potassium A-a O2 Difference Respiratory Index Sodium Chloride Glucose Lactate Liter Flow Mechanical Rate FiO2 Potassium Carbon Dioxide Anion Gap BUN Creatinine Est GFR ( Amer) Est GFR (Non-Af Amer) POC Glucose (mg/dL) Random Glucose Calcium Phosphorus Magnesium Total Bilirubin AST ALT Alkaline Phosphatase Ammonia Total Protein Albumin Globulin Albumin/Globulin Ratio Alpha Fetoprotein Arterial Blood Potassium IgG 1595.3 Complement C4 22.8 Hepatitis A IgM Ab Hep Bs Antigen Hep B Core IgM Ab Hepatitis C Antibody HIV 1&2 Antibody Screen Negative Influenza Typ A,B (EIA) Ur L.pneumophila Ag 07/19/17 07/19/17 07/19/17 10:03 11:21 11:46 WBC RBC Hgb Hct MCV MCH MCHC RDW Plt Count MPV Puncture Site pCO2 pO2 HCO3 ABG pH ABG Total CO2 ABG O2 Saturation ABG Base Excess Navin Test ABG Potassium A-a O2 Difference Respiratory Index Sodium Chloride Glucose Lactate Liter Flow Mechanical Rate FiO2 Potassium Carbon Dioxide Anion Gap BUN Creatinine Est GFR ( Amer) Est GFR (Non-Af Amer) POC Glucose (mg/dL) 166 H Random Glucose Calcium Phosphorus Magnesium Total Bilirubin AST ALT Alkaline Phosphatase Ammonia 16 D Total Protein Albumin Globulin Albumin/Globulin Ratio Alpha Fetoprotein 2.0 Arterial Blood Potassium IgG Complement C4 Hepatitis A IgM Ab Hep Bs Antigen Hep B Core IgM Ab Hepatitis C Antibody HIV 1&2 Antibody Screen Influenza Typ A,B (EIA) Ur L.pneumophila Ag
[2017-07-19 16:27] LABS: RAPID PLASMA REAGIN NONREACTIVE (NONREACTIVE)
[2017-07-19 16:32] LABS: CRYPTOCOCCUS ANTIGEN SERUM NEGATIVE (NEGATIVE)
[2017-07-19 17:15] LABS: MYCOPLASMA PNEUMONIAE IGM NEGATIVE (NEGATIVE)
[2017-07-19] MEDS: Vitamins A & D Oint UD Foilpak TOP SCH (18:00)
--- NOTE | 2017-07-19 18:37 | RAD ---
HISTORY: ngt COMPARISON: Comparison is made with 07/14/2017 FINDINGS: LUNGS: Mild pulmonary vascular congestion is noted. PLEURA: No significant pleural effusion identified, no pneumothorax apparent. CARDIOVASCULAR: Cardiomegaly is noted. OSSEOUS STRUCTURES: No significant abnormalities. VISUALIZED UPPER ABDOMEN: NG tube seen extending to the stomach. OTHER FINDINGS: None. IMPRESSION: Cardiomegaly and mild pulmonary vascular congestion.
[2017-07-20] MEDS: (Novolin R) Insulin Human Regular 100 units/ml vial SC SCH ×4 (00:05→18:21)
[2017-07-20] MEDS: Albuterol-Ipratrop 3 mg / 0.5 (3 ml) UD INH SCH ×4 (01:32→19:16)
[2017-07-20] MEDS: ACYCLOVIR IV SCH ×2 (03:33→14:04)
[2017-07-20] MEDS: DEXTROSE 5% IV SCH ×2 (03:33→14:04)
[2017-07-20] MEDS: WATER IV SCH ×2 (03:33→14:04)
[2017-07-20] MEDS: Levothyroxine 50 MCG TAB PO SCH (06:57)
--- NOTE | 2017-07-20 08:03 | CP.PCM.PN ---
Subjective - Date & Time of Evaluation Date of Evaluation: 07/20/17 Time of Evaluation: 07:56 - Subjective Subjective: Patient seen and examined, no acute events overnight. Patient remains lethargic and not able to participate with conversation. NGT was placed and patient tolerating tube feeding without difficulty. Nursing staff reports two soft bowel movements overnight. There is no reported abdominal pain, nausea, vomiting, fever/chills. Review of systems not available due to patient with altered mental status Objective - Vital Signs/Intake and Output Vital Signs (last 24 hours): Temp Pulse Resp BP Pulse Ox 98.4 F 93 H 20 180/83 H 100 07/19/17 23:35 07/20/17 00:00 07/19/17 23:35 07/19/17 23:35 07/19/17 23:35 Intake and Output: 07/20/17 07/20/17 06:59 18:59 Intake Total 300 Balance 300 - Medications Medications: Current Medications Albuterol/Ipratropium (Duoneb 3 Mg/0.5 Mg (3 Ml) Ud) 3 ml INH RQ6 [facility] Last Admin: 07/20/17 07:17 Dose: 3 ml Artificial Tears (Artificial Tears) 0 ml OD Q3H PRN PRN Reason: Dry eyes Last Admin: 07/14/17 17:35 Dose: 1 drop Aspirin (Aspirin Chewable) 81 mg PO DAILY [facility] Last Admin: 07/19/17 11:20 Dose: Not Given Calcium Acetate (Phoslo) 667 mg PO TIDCC [facility] Last Admin: 07/20/17 07:00 Dose: 667 mg Carvedilol (Coreg) 12.5 mg PO BID [facility] Last Admin: 07/19/17 22:18 Dose: 12.5 mg Clonidine HCl (Catapres Tts1 0.1 Mg/24 Hr) 1 patch TD Q7D@1000 [facility] Last Admin: 07/18/17 14:31 Dose: 1 patch Clopidogrel Bisulfate (Plavix) 75 mg PO DAILY [facility] Last Admin: 07/19/17 11:21 Dose: Not Given Docusate Sodium (Colace) 100 mg PO TID [facility] Last Admin: 07/19/17 22:18 Dose: Not Given Epoetin Kumar (Procrit) 10,000 unit SC MWF [facility] Last Admin: 07/18/17 11:39 Dose: 10,000 unit Heparin Sodium (Porcine) (Heparin) 5,000 units SC Q12H [facility] Last Admin: 07/19/17 22:18 Dose: 5,000 units Meropenem 500 mg/ Sodium (Chloride) 100 mls @ 100 mls/hr IVPB Q12H [facility] PRN Reason: Protocol Last Admin: 07/19/17 22:35 Dose: 100 mls/hr Vancomycin HCl 500 mg/ Sodium (Chloride) 100 mls @ 100 mls/hr IVPB Q48H [facility] PRN Reason: Protocol Last Admin: 07/19/17 01:55 Dose: 100 mls/hr Ampicillin 500 mg/ Sodium (Chloride) 100 mls @ 100 mls/hr IVPB Q8H [facility] PRN Reason: Protocol Last Admin: 07/20/17 03:32 Dose: 100 mls/hr Acyclovir 400 mg/ Dextrose 100 mls @ 100 mls/hr IV Q12H [facility] PRN Reason: Protocol Last Admin: 07/20/17 03:33 Dose: 100 mls/hr Insulin Human Regular (Novolin R) 0 unit SC Q6 [facility] PRN Reason: Protocol Last Admin: 07/20/17 07:08 Dose: 10 unit Lactulose (Enulose) 20 gm PO Q8 [facility] Stop: 07/21/17 14:01 Last Admin: 07/20/17 06:57 Dose: 20 gm Levothyroxine Sodium (Synthroid) 50 mcg PO DAILY@0630 [facility] Last Admin: 07/20/17 06:57 Dose: 50 mcg Vitamin A (Vitamin A & D Oint Ud Foilpak) 1 ea TOP BID [facility] Last Admin: 07/19/17 18:00 Dose: 1 ea - Labs Labs: 07/19/17 08:31 07/19/17 08:31 PT 12.4 SECONDS (9.7-12.2) H 07/13/17 10:35 INR 1.1 07/13/17 10:35 APTT 31 SECONDS (21-34) 07/13/17 10:35 - Constitutional Appears: Non-toxic, Chronically Ill - Head Exam Head Exam: NORMAL INSPECTION - Eye Exam Eye Exam: Normal appearance - ENT Exam ENT Exam: Mucous Membranes Moist - Respiratory Exam Respiratory Exam: Clear to Ausculation Bilateral - Cardiovascular Exam Cardiovascular Exam: +S1, +S2 Additional comments: +PPM - GI/Abdominal Exam GI & Abdominal Exam: Soft, Normal Bowel Sounds Additional comments: non tender to palpation in four quadrants RLQ dialysis port present - Extremities Exam Extremities Exam: Normal Inspection - Skin Skin Exam: Dry, Intact, Normal Color, Warm Assessment and Plan - Assessment and Plan (Free Text) Assessment: ESRD on peritoneal dialysis HTN / DM CAD s/p CABG, complete HB s/p PPM Altered mental status Cirrhosis - unclear etiology Plan: - Continue with tube feeding as tolerated - Continue with lactulose, patient having adequate bowel movements on therapy - Continue to monitor LFTs. Viral hepatitis panel, IGG negative. Awaiting additional studies. - Follow up ID recommendations, concern for possible meningitis. Patient on droplet precautions. - Follow up neurology recommendations - Will continue to monitor patient clinical course
[2017-07-20 08:19] LABS: BASO % 0.2 % (0.0-2.0); EOS # 0.4 K/uL (0.0-0.7); EOS % 2.3 % (0.0-4.0); HEMOGLOBIN 9.2 g/dL (12.0-18.0); LYMPH # 1.2 K/uL (1.0-4.3); LYMPH % 7.4 % (20.0-40.0); MEAN CELL VOLUME 93.8 fL (80.0-94.0); MEAN CORPUSCULAR HEMOGLOBIN 31.6 pg (27.0-31.0); MEAN CORPUSCULAR HGB CONC 33.7 g/dL (33.0-37.0); MEAN PLATELET VOLUME 8.4 fL (7.2-11.7); MONO # 1.4 K/uL (0.0-0.8); NEUT # 12.7 K/uL (1.8-7.0); NEUT % 81.1 % (50.0-75.0); NRBC % 0.2 % (0.0-2.0); PLATELET COUNT 260 K/uL (130-400); RBC 2.92 Mil/uL (4.40-5.90); RED CELL DISTRIBUTION WIDTH 15.8 % (11.5-14.5); WHITE BLOOD COUNT 15.7 K/uL (4.8-10.8)
[2017-07-20 08:33] LABS: ALB/GLOB RATIO 0.8 (1.0-2.1); ALBUMIN 2.6 g/dL (3.5-5.0); BILIRUBIN,DIRECT 0.6 mg/dL (0.0-0.4); CALCIUM 8.3 mg/dl (8.6-10.4)
[2017-07-20 09:39] LABS: LYMPHOCYTE 4 % (20-40); MONOCYTE 5 % (0-10); TOTAL CELLS COUNTED 100
[2017-07-20 09:40] LABS: EOSINOPHIL 1 % (0-4); NEUTROPHIL 90 % (50-75)
[2017-07-20 09:44] LABS: ANISOCYTOSIS SLIGHT; PLATELET ESTIMATE NORMAL (NORMAL)
[2017-07-20 09:45] LABS: GIANT PLATELETS PRESENT; LARGE PLATELETS PRESENT
[2017-07-20 09:46] LABS: POLYCHROMIC SLIGHT
[2017-07-20 09:47] LABS: OVALOCYTES SLIGHT
[2017-07-20] MEDS: Vitamins A & D Oint UD Foilpak TOP SCH ×2 (10:41→18:14)
--- NOTE | 2017-07-20 12:19 | CT ---
PROCEDURE: CT Chest without contrast HISTORY: pneumonia/ pacemaker COMPARISON: None. TECHNIQUE: Contiguous axial images were obtained through the chest without intravenous contrast enhancement. Sagittal and coronal reconstructions were performed. Radiation dose (DLP): 337.11 mGy-cm. This CT exam was performed using one or more of the following dose reduction techniques: Automated exposure control, adjustment of the mA and/or kV according to patient size, and/or use of iterative reconstruction technique. FINDINGS: LUNGS: [id number] pulmonary congestion is noted. Prominent interstitial and reticular opacities seen likely due to congestion. No evidence of pneumonia or suspicious mass. Partial atelectasis of the left lower lobe due to pleural effusion. MEDIASTINUM: Unremarkable thoracic aorta. No aneurysm. The heart is mildly to moderately enlarged. Pacemaker wires seen extending to the heart. Main pulmonary artery unremarkable. No vascular congestion. No lymphadenopathy. PLEURA: Small left pleural effusion. Trace right pleural effusion and pleural thickening noted. BONES: No fracture. No destructive lesion. UPPER ABDOMEN: NG tube seen extending to the stomach. The gallbladder is mildly distended. There is small amount of free fluid in the upper abdomen. OTHER FINDINGS: None. IMPRESSION: Cardiomegaly and [id number] pulmonary congestion. Small left and trace right pleural effusions. No evidence of pneumothorax.
[2017-07-20] MEDS: Meropenem 500 MG in Sodium Chloride 0.9% 100 ML IVPB SCH ×2 (12:21→22:33)
[2017-07-20] MEDS ORDERED: Potassium Chloride 20 mEq/15 ml LIQ UD PO ONE (13:15)
--- NOTE | 2017-07-20 14:11 | CON ---
DATE: 07/19/2017 INFECTIOUS DISEASE CONSULTATION REQUESTED BY: Dr. Elizabeth. REASON FOR CONSULTATION: Leukocytosis and altered mental status. HISTORY OF PRESENT ILLNESS: The patient is a 76-year-old male with history of multiple medical problems including diabetes mellitus, hypertension, hypercholesterolemia, hypothyroidism, history of bronchitis, coronary artery disease, status post CABG in 1992, five-vessel bypass, also recently had a pacemaker placement two weeks ago for symptoms of bradycardia, end-stage renal disease, on peritoneal dialysis, who was brought in by ambulance because of slurred speech and right facial droop. Initial evaluation done at [facility] ER with CAT scan of the head, which showed questionable confluent area of low attenuation and right frontal subcortical white matter chronic ischemic changes and some dilatation of the ventricles. Events noted. The patient seen by Neurology. Events noted. Repeat CAT scan of the head showed no acute intracranial pathology. The patient also has been complaining of right ear pain as per family and with headaches for the past few days and was noted to have right facial droop and dysphagia. The patient was also seen to be confused and forgetful and delirious throughout this time. Presently as reported, the patient had gradually increasing leukocytosis. The patient was initially treated with steroids and antivirals, but the patient got more delirious, which were then discontinued. Infectious Disease consultation therefore requested by PMD for evaluation of increasing leukocytosis. History obtained mainly from the family who was at the bedside. The patient had chest x-ray repeat for the possibility of aspiration and was noted to have low lung volumes with bibasilar atelectasis and small left effusion. The patient unable to give history and appears to be confused and dazed. PAST MEDICAL HISTORY: As above, history of diabetes, hypertension, hypothyroidism, high cholesterol, CABG, coronary artery disease, bronchitis peritoneal dialysis, and end-stage renal disease. SURGICAL HISTORY: As reported above CABG with bypass grafting in 1992, five-vessel bypass, prostatectomy, Laser surgery, right leg fracture surgery, cataract surgery, also recently had a pacemaker placement. FAMILY HISTORY: Significant for heart disease. SOCIAL HISTORY: The patient is nonalcoholic, nonsmoker. MEDICATIONS: Reviewed as per chart. See MARS. Presently on aspirin 81 mg p.o. daily, Coreg 12.5 mg p.o. b.i.d., Plavix 75 mg p.o. daily, Pepcid 20 mg p.o. daily, heparin 5000 subcu units every 12 hours, and insulin as required with levothyroxine mcg p.o. daily. The patient was also started on IV cefepime by the private MD, which was discontinued and one dose of vancomycin was also given on 07/18/ . REVIEW OF SYSTEMS: Cannot be obtained as noted above by the patient's family, the patient is presently confused, able to sometimes answer yes and no questions and unable to follow commands. IV antibiotics as reported. The patient was on cefepime and vancomycin one dose as reported above. PHYSICAL EXAMINATION: GENERAL: The patient appears to be confused, dysarthric, not able to follow commands. VITAL SIGNS: As noted, presently afebrile. Blood pressure 181/89, respirations 18, pulse of 98, pulse ox 100%. HEENT: Pupils equal and reactive to light and accommodation. Extraocular movements full. Fundus not well visualized. NECK: Some nuchal rigidity noted. No lymphadenopathy appreciated. No carotid bruits. LUNGS: Clear air entry. CARDIOVASCULAR SYSTEM: S1 and S2, regular. ABDOMEN: Soft, bowel sounds present. Nodular liver palpable. Bowel sounds are present. EXTREMITIES: No cyanosis, clubbing, or edema. The patient is moving all extremities. Right facial droop. Yu's palsy noted. LABORATORY DATA: WBC 19, H and H of 10 and 39.3, platelets 286, creatinine 7.7, BUN of 74, total bili 0.4, ALT 126, alkaline phosphatase 146. Serum ammonia less than 9. CT of the head repeat, no acute intracranial pathology. Chest x-ray as noted bibasilar atelectasis with low lung volumes, small left effusion. Abdominal ultrasound as reported, hepatic cirrhosis with small ascites and atrophic kidneys. Medications reviewed. Lab data as above. IMPRESSION: 1. Altered mental status, right Yu's palsy, right ear pain, headache and nuchal rigidity, rule out meningoencephalitis, viral herpes simplex virus 1 and 2, which is autoimmune encephalitis versus bacterial. 2. 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 3. Leukocytosis, rule out septicemia. 4. Status post recent permanent pacemaker two weeks ago, rule out subacute bacterial endocarditis. 5. End-stage renal disease, on peritoneal dialysis. 6. History of coronary artery disease, status post coronary artery bypass graft x5 vessel. PLAN: Mcgraw cultures, we will get RPR, influenza A and B serology, mycoplasma IgM serology, follow up HIV 1 and 2 antigen and antibody serology, fourth generation test, compliment studies C2, C4, CH50. 2D echo, rule out vegetation. Cryptococcal antigen, immunoglobulins, IgG. We will also repeat HSV 1 and 2 IgM and IgG serology. West Nile Virus IgM and IgG serology serum, NMDA receptor antibodies in the serum and arboviruses. Start IV Merrem 500 every 12 hourly for now. Started 07/18/2017. Continue IV vancomycin 500 every 48 hourly, 07/17/2017. Also obtain vanco trough levels prior to the third dose and maintain between 10 and 20. Add IV ampicillin 500 mg every 8 hours for possible Listeria coverage for now. 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 Renal dosage, EEG pending. We will discuss with Neurology to consider LP if no contraindication to rule out occult [employer] etiology. Case discussed with private MD and staff. Droplet precautions for now. Case also discussed with family. We will follow up with you. Presently, the patient is being started on NG tube feedings. We will follow as discussed. Tu Villegas MD
--- NOTE | 2017-07-20 15:44 | CARD ---
APPROVED REPORT EXAM: Two-dimensional and M-mode echocardiogram with Doppler and color Doppler. Other Information Quality : GoodRhythm : INDICATION Syncope R/O SBE RISK FACTORS Diabetes 2D DIMENSIONS IVSd1.3 (0.7-1.1cm)LVDd4.8 (3.9-5.9cm) PWd1.3 (0.7-1.1cm)LVDs3.5 (2.5-4.0cm) FS (%) 27.8 %LVEF (%)53.8 (>50%) M-Mode DIMENSIONS Left Atrium (MM)4.83 (2.5-4.0cm)Aortic Root3.21 (2.2-3.7cm) Aortic Cusp Exc.1.88 (1.5-2.0cm) Mitral Valve MV E Rhmvslbk731.8cm/sMV A Mwwswfkx64.3cm/sE/A ratio1.8 TDI E/Lateral E'0.0E/Medial E'0.0 Tricuspid Valve TR Peak [id number]/sTR Peak Gr.[id number] LEFT VENTRICLE The left ventricle is normal size. There is normal left ventricular wall thickness. The left ventricular function is normal. The left ventricular ejection fraction is within the normal range. There is normal LV segmental wall motion. The left ventricular diastolic function is normal. RIGHT VENTRICLE The right ventricle is normal size. ATRIA The left atrium is mildly dilated. The right atrium size is normal. AORTIC VALVE The aortic valve is normal in structure. MITRAL VALVE Mitral regurgitation is mild. TRICUSPID VALVE There is mild to moderate tricuspid regurgitation. <Conclusion> Normal LV systolic function. Dilated LA. Mild MR. Mild to moderate TR.
--- NOTE | 2017-07-20 21:11 | CP.PCM.PN ---
Subjective - Date & Time of Evaluation Date of Evaluation: 07/20/17 Time of Evaluation: 19:30 - Subjective Subjective: Patient seen and evaluated No acute cardiac events Physical Examination - Constitutional Appears: Non-toxic, Chronically Ill - Head Exam Head Exam: NORMAL INSPECTION - Eye Exam Eye Exam: Normal appearance - ENT Exam ENT Exam: Mucous Membranes Moist - Respiratory Exam Respiratory Exam: Clear to Ausculation Bilateral - Cardiovascular Exam Cardiovascular Exam: +S1, +S2 Additional comments: +PPM - GI/Abdominal Exam GI & Abdominal Exam: Soft, Normal Bowel Sounds Additional comments: non tender to palpation in four quadrants RLQ dialysis port present - Extremities Exam Extremities Exam: Normal Inspection - Skin Skin Exam: Dry, Intact, Normal Color, Warm Objective - Vital Signs/Intake and Output Vital Signs (last 24 hours): Temp Pulse Resp BP Pulse Ox 98.4 F 92 H 18 135/71 100 07/20/17 15:00 07/20/17 15:00 07/20/17 15:00 07/20/17 15:00 07/20/17 15:00 Intake and Output: 07/20/17 07/21/17 18:59 06:59 Intake Total 500 Balance 500 - Medications Medications: Current Medications Albuterol/Ipratropium (Duoneb 3 Mg/0.5 Mg (3 Ml) Ud) 3 ml INH RQ6 [facility] Last Admin: 07/20/17 19:16 Dose: 3 ml Artificial Tears (Artificial Tears) 0 ml OD Q3H PRN PRN Reason: Dry eyes Last Admin: 07/14/17 17:35 Dose: 1 drop Aspirin (Aspirin Chewable) 81 mg PO DAILY [facility] Last Admin: 07/20/17 10:39 Dose: 81 mg Calcium Acetate (Phoslo) 667 mg PO TIDCC [facility] Last Admin: 07/20/17 18:00 Dose: 667 mg Carvedilol (Coreg) 12.5 mg PO BID [facility] Last Admin: 07/20/17 18:14 Dose: 12.5 mg Clonidine HCl (Catapres Tts1 0.1 Mg/24 Hr) 1 patch TD Q7D@1000 [facility] Last Admin: 07/18/17 14:31 Dose: 1 patch Clopidogrel Bisulfate (Plavix) 75 mg PO DAILY [facility] Last Admin: 07/20/17 10:39 Dose: 75 mg Epoetin Kumar (Procrit) 10,000 unit SC MWF [facility] Last Admin: 07/18/17 11:39 Dose: 10,000 unit Heparin Sodium (Porcine) (Heparin) 5,000 units SC Q12H [facility] Last Admin: 07/20/17 10:39 Dose: 5,000 units Meropenem 500 mg/ Sodium (Chloride) 100 mls @ 100 mls/hr IVPB Q12H [facility] PRN Reason: Protocol Last Admin: 07/20/17 12:21 Dose: 100 mls/hr Vancomycin HCl 500 mg/ Sodium (Chloride) 100 mls @ 100 mls/hr IVPB Q48H [facility] PRN Reason: Protocol Last Admin: 07/19/17 01:55 Dose: 100 mls/hr Ampicillin 500 mg/ Sodium (Chloride) 100 mls @ 100 mls/hr IVPB Q8H [facility] PRN Reason: Protocol Last Admin: 07/20/17 18:14 Dose: 100 mls/hr Acyclovir 400 mg/ Dextrose 100 mls @ 100 mls/hr IV Q12H [facility] PRN Reason: Protocol Last Admin: 07/20/17 14:04 Dose: 100 mls/hr Insulin Human Regular (Novolin R) 0 unit SC Q6 [facility] PRN Reason: Protocol Last Admin: 07/20/17 18:21 Dose: 4 unit Lactulose (Enulose) 20 gm PO QID [facility] Stop: 07/22/17 14:01 Last Admin: 07/20/17 18:14 Dose: 20 gm Levothyroxine Sodium (Synthroid) 50 mcg PO DAILY@0630 [facility] Last Admin: 07/20/17 06:57 Dose: 50 mcg Vitamin A (Vitamin A & D Oint Ud Foilpak) 1 ea TOP BID [facility] Last Admin: 07/20/17 18:14 Dose: 1 ea - Labs Labs: 07/20/17 06:38 07/20/17 06:38 PT 12.4 SECONDS (9.7-12.2) H 07/13/17 10:35 INR 1.1 07/13/17 10:35 APTT 31 SECONDS (21-34) 07/13/17 10:35 Assessment and Plan - Assessment and Plan (Free Text) Assessment: ESRD on peritoneal dialysis HTN / DM CAD s/p CABG, complete HB s/p PPM Altered mental status Cirrhosis - unclear etiology CVA No further cardiac work up now
[2017-07-21] MEDS: (Novolin R) Insulin Human Regular 100 units/ml vial SC SCH ×4 (01:22→18:15)
[2017-07-21] MEDS: Albuterol-Ipratrop 3 mg / 0.5 (3 ml) UD INH SCH ×4 (01:28→20:09)
[2017-07-21] MEDS: WATER IV SCH ×2 (01:46→14:21)
[2017-07-21] MEDS: ACYCLOVIR IV SCH ×2 (01:46→14:21)
[2017-07-21] MEDS: DEXTROSE 5% IV SCH ×2 (01:46→14:21)
--- NOTE | 2017-07-21 02:27 | RAD ---
EXAM: XR Chest, 1 View CLINICAL HISTORY: 77 years old, male; Device placement; Ng tube; Additional info: To check ng tube placement TECHNIQUE: Frontal view of the chest. COMPARISON: No relevant prior studies available. FINDINGS: Lungs: Mild underinflation. Minimal patchy opacity left lung base. Pleural space: Small bilateral pleural effusions. No pneumothorax. Heart: Mild cardiomegaly. Mediastinum: Unremarkable. Bones/joints: No acute fracture. Tubes, lines and devices: Leads overlying chest. NG tube courses below diaphragm, tip projected over body of stomach. LEFT pacemaker. IMPRESSION: 1. Acceptable position of NG tube. 2. Left basilar atelectasis versus early pneumonia. 3. Incidental/non-acute findings are described above.
[2017-07-21] MEDS: Levothyroxine 50 MCG TAB PO SCH (06:22)
[2017-07-21 08:14] LABS: BASO % 0.2 % (0.0-2.0); EOS # 0.5 K/uL (0.0-0.7); EOS % 3.5 % (0.0-4.0); HEMOGLOBIN 8.6 g/dL (12.0-18.0); LYMPH # 1.1 K/uL (1.0-4.3); LYMPH % 8.4 % (20.0-40.0); MEAN CELL VOLUME 94.1 fL (80.0-94.0); MEAN CORPUSCULAR HEMOGLOBIN 32.3 pg (27.0-31.0); MEAN CORPUSCULAR HGB CONC 34.3 g/dL (33.0-37.0); MEAN PLATELET VOLUME 8.4 fL (7.2-11.7); MONO # 1.3 K/uL (0.0-0.8); MONO % 10.3 % (0.0-10.0); NEUT # 10.2 K/uL (1.8-7.0); NEUT % 77.6 % (50.0-75.0); PLATELET COUNT 209 K/uL (130-400); RBC 2.67 Mil/uL (4.40-5.90); RED CELL DISTRIBUTION WIDTH 16.5 % (11.5-14.5); WHITE BLOOD COUNT 13.1 K/uL (4.8-10.8)
--- NOTE | 2017-07-21 08:28 | CP.PCM.PN ---
Subjective - Date & Time of Evaluation Date of Evaluation: 07/20/17 Time of Evaluation: 08:27 - Subjective Subjective: Patient this morning was more awake than yesterday. She is responding. And he is following commands also. But still having some difficulty in swallowing. NG tube is in place. receiving NG tube feeding. Neck stiffness noted. No fever. WBC improving. On examination: Vital signs reviewed Chest good air entry, regular heart sound, minimal expiratory wheezing noted Regular heart sound. Abdomen minimal distention noted. Edema bilaterally 1+ noted Labs reviewed Improvement in the WBC noted. Elevated creatinine level noted X-ray of the chest, CAT scan of the lungs reviewed Nonspecific. Assessment and recommendation: 77-year-old male with a history of multiple medical problems including hypertension diabetes hypercholesterolemia CAD status post CABG renal insufficiency on peritoneal dialysis admitted recently with a complete heart block Later complicated with facial paralysis And suspected encephalitis right now and treatment Liver disease. Metabolic encephalopathy. Overall prognosis is very poor Discussed with the infectious disease also. Suggested to have an LP. Will discuss with the family. Will follow-up the patient get EEG Objective - Vital Signs/Intake and Output Vital Signs (last 24 hours): Temp Pulse Resp BP Pulse Ox 97.9 F 96 H 20 144/70 97 07/21/17 07:25 07/21/17 07:25 07/21/17 07:25 07/21/17 07:25 07/21/17 07:25 Intake and Output: 07/21/17 07/21/17 06:59 18:59 Intake Total 300 Balance 300 - Medications Medications: Current Medications Albuterol/Ipratropium (Duoneb 3 Mg/0.5 Mg (3 Ml) Ud) 3 ml INH RQ6 [facility] Last Admin: 07/21/17 07:11 Dose: 3 ml Artificial Tears (Artificial Tears) 0 ml OD Q3H PRN PRN Reason: Dry eyes Last Admin: 07/14/17 17:35 Dose: 1 drop Aspirin (Aspirin Chewable) 81 mg PO DAILY [facility] Last Admin: 07/20/17 10:39 Dose: 81 mg Calcium Acetate (Phoslo) 667 mg PO TIDCC [facility] Last Admin: 07/20/17 18:00 Dose: 667 mg Carvedilol (Coreg) 12.5 mg PO BID [facility] Last Admin: 07/20/17 18:14 Dose: 12.5 mg Clonidine HCl (Catapres Tts1 0.1 Mg/24 Hr) 1 patch TD Q7D@1000 [facility] Last Admin: 07/18/17 14:31 Dose: 1 patch Clopidogrel Bisulfate (Plavix) 75 mg PO DAILY [facility] Last Admin: 07/20/17 10:39 Dose: 75 mg Epoetin Kumar (Procrit) 10,000 unit SC MWF [facility] Last Admin: 07/18/17 11:39 Dose: 10,000 unit Heparin Sodium (Porcine) (Heparin) 5,000 units SC Q12H [facility] Last Admin: 07/20/17 22:31 Dose: 5,000 units Meropenem 500 mg/ Sodium (Chloride) 100 mls @ 100 mls/hr IVPB Q12H [facility] PRN Reason: Protocol Last Admin: 07/20/17 22:33 Dose: 100 mls/hr Vancomycin HCl 500 mg/ Sodium (Chloride) 100 mls @ 100 mls/hr IVPB Q48H [facility] PRN Reason: Protocol Last Admin: 07/21/17 00:54 Dose: 100 mls/hr Ampicillin 500 mg/ Sodium (Chloride) 100 mls @ 100 mls/hr IVPB Q8H [facility] PRN Reason: Protocol Last Admin: 07/21/17 02:00 Dose: 100 mls/hr Acyclovir 400 mg/ Dextrose 100 mls @ 100 mls/hr IV Q12H [facility] PRN Reason: Protocol Last Admin: 07/21/17 01:46 Dose: 100 mls/hr Insulin Human Regular (Novolin R) 0 unit SC Q6 [facility] PRN Reason: Protocol Last Admin: 07/21/17 06:23 Dose: 10 unit Lactulose (Enulose) 20 gm PO QID [facility] Stop: 07/22/17 14:01 Last Admin: 07/20/17 22:31 Dose: 20 gm Levothyroxine Sodium (Synthroid) 50 mcg PO DAILY@0630 [facility] Last Admin: 07/21/17 06:22 Dose: 50 mcg Vitamin A (Vitamin A & D Oint Ud Foilpak) 1 ea TOP BID [facility] Last Admin: 07/20/17 18:14 Dose: 1 ea - Labs Labs: 07/21/17 08:02 07/20/17 06:38 PT 12.4 SECONDS (9.7-12.2) H 07/13/17 10:35 INR 1.1 07/13/17 10:35 APTT 31 SECONDS (21-34) 07/13/17 10:35
[2017-07-21 08:40] LABS: EOSINOPHIL 2 % (0-4); LYMPHOCYTE 5 % (20-40); MONOCYTE 10 % (0-10); NEUTROPHIL 83 % (50-75); TOTAL CELLS COUNTED 100
[2017-07-21 08:41] LABS: ANISOCYTOSIS SLIGHT; PLATELET ESTIMATE NORMAL (NORMAL)
[2017-07-21 08:42] LABS: HYPOCHROMIC SLIGHT; POLYCHROMIC SLIGHT
[2017-07-21 08:46] LABS: ALB/GLOB RATIO 0.9 (1.0-2.1); ALBUMIN 2.7 g/dL (3.5-5.0); BILIRUBIN,DIRECT 0.6 mg/dL (0.0-0.4); CALCIUM 8.4 mg/dl (8.6-10.4)
[2017-07-21] MEDS: Vitamins A & D Oint UD Foilpak TOP SCH ×2 (09:58→17:37)
[2017-07-21] MEDS: EPOETIN ALFA 10,000 UNIT/ML ML SC SCH (09:58)
--- NOTE | 2017-07-21 11:47 | CP.PCM.PN ---
Subjective - Date & Time of Evaluation Date of Evaluation: 07/21/17 Time of Evaluation: 11:44 - Subjective Subjective: Remains very lethargic; poorly responsive now On multiple antimicrobials for suspected sepsis; no definitive + cultures US showed cirrhosos; LFTs lower now CT chest showed pulm congestion NGT feeds in progress now lytes acceptable Objective - Vital Signs/Intake and Output Vital Signs (last 24 hours): Temp Pulse Resp BP Pulse Ox 97.9 F 96 H 20 144/70 97 07/21/17 07:25 07/21/17 07:25 07/21/17 07:25 07/21/17 07:25 07/21/17 07:25 Intake and Output: 07/21/17 07/21/17 06:59 18:59 Intake Total 300 Balance 300 - Medications Medications: Current Medications Albuterol/Ipratropium (Duoneb 3 Mg/0.5 Mg (3 Ml) Ud) 3 ml INH RQ6 [facility] Last Admin: 07/21/17 07:11 Dose: 3 ml Artificial Tears (Artificial Tears) 0 ml OD Q3H PRN PRN Reason: Dry eyes Last Admin: 07/14/17 17:35 Dose: 1 drop Aspirin (Aspirin Chewable) 81 mg PO DAILY [facility] Last Admin: 07/21/17 09:58 Dose: 81 mg Calcium Acetate (Phoslo) 667 mg PO TIDCC [facility] Last Admin: 07/21/17 08:57 Dose: 667 mg Carvedilol (Coreg) 12.5 mg PO BID [facility] Last Admin: 07/21/17 09:58 Dose: 12.5 mg Clonidine HCl (Catapres Tts1 0.1 Mg/24 Hr) 1 patch TD Q7D@1000 [facility] Last Admin: 07/18/17 14:31 Dose: 1 patch Clopidogrel Bisulfate (Plavix) 75 mg PO DAILY [facility] Last Admin: 07/21/17 09:58 Dose: 75 mg Epoetin Kumar (Procrit) 10,000 unit SC MWF [facility] Last Admin: 07/21/17 09:58 Dose: 10,000 unit Heparin Sodium (Porcine) (Heparin) 5,000 units SC Q12H [facility] Last Admin: 07/21/17 09:58 Dose: 5,000 units Meropenem 500 mg/ Sodium (Chloride) 100 mls @ 100 mls/hr IVPB Q12H [facility] PRN Reason: Protocol Last Admin: 07/20/17 22:33 Dose: 100 mls/hr Vancomycin HCl 500 mg/ Sodium (Chloride) 100 mls @ 100 mls/hr IVPB Q48H [facility] PRN Reason: Protocol Last Admin: 07/21/17 00:54 Dose: 100 mls/hr Ampicillin 500 mg/ Sodium (Chloride) 100 mls @ 100 mls/hr IVPB Q8H [facility] PRN Reason: Protocol Last Admin: 07/21/17 09:59 Dose: 100 mls/hr Acyclovir 400 mg/ Dextrose 100 mls @ 100 mls/hr IV Q12H [facility] PRN Reason: Protocol Last Admin: 07/21/17 01:46 Dose: 100 mls/hr Insulin Human Regular (Novolin R) 0 unit SC Q6 [facility] PRN Reason: Protocol Last Admin: 07/21/17 06:23 Dose: 10 unit Lactulose (Enulose) 20 gm PO QID [facility] Stop: 07/22/17 14:01 Last Admin: 07/21/17 09:58 Dose: 20 gm Levothyroxine Sodium (Synthroid) 50 mcg PO DAILY@0630 [facility] Last Admin: 07/21/17 06:22 Dose: 50 mcg Vitamin A (Vitamin A & D Oint Ud Foilpak) 1 ea TOP BID [facility] Last Admin: 07/21/17 09:58 Dose: 1 ea - Labs Labs: 07/21/17 08:02 07/21/17 08:02 PT 12.4 SECONDS (9.7-12.2) H 07/13/17 10:35 INR 1.1 07/13/17 10:35 APTT 31 SECONDS (21-34) 07/13/17 10:35 - Constitutional Appears: Confused, Chronically Ill - Head Exam Head Exam: ATRAUMATIC, NORMAL INSPECTION - Neck Exam Neck Exam: Normal Inspection, Tenderness - Respiratory Exam Respiratory Exam: Clear to Ausculation Bilateral, NORMAL BREATHING PATTERN - Cardiovascular Exam Cardiovascular Exam: REGULAR RHYTHM, +S1 - GI/Abdominal Exam GI & Abdominal Exam: Soft - Extremities Exam Extremities Exam: Normal Inspection. absent: Tenderness - Neurological Exam Neurological Exam: Altered - Skin Skin Exam: Dry, Warm Assessment and Plan (1) TIA (transient ischemic attack) Status: Acute (2) ESRD (end stage renal disease) Status: Acute (3) Heart block AV complete Status: Acute (4) Type 2 diabetes mellitus with diabetic nephropathy Status: Acute - Assessment and Plan (Free Text) Plan: Replete K again Increase fluid removal with PD Recheck chemistries Consider LP antimicrobials as per ID
--- NOTE | 2017-07-21 11:51 | CT ---
PROCEDURE: CT HEAD WITHOUT CONTRAST. HISTORY: AMS COMPARISON: 07/18/2017 TECHNIQUE: Axial computed tomography images were obtained through the head/brain without intravenous contrast. Radiation dose: Total exam DLP = 1310.36 mGy-cm. This CT exam was performed using one or more of the following dose reduction techniques: Automated exposure control, adjustment of the mA and/or kV according to patient size, and/or use of iterative reconstruction technique. FINDINGS: HEMORRHAGE: No intracranial hemorrhage. BRAIN: No mass effect or edema. Old right frontal encephalomalacia. Possible old MCA territory infarct. Mild to moderate chronic periventricular white matter ischemic change. No evidence of acute infarct. VENTRICLES: Unremarkable. No hydrocephalus. CALVARIUM: Unremarkable. PARANASAL SINUSES: Unremarkable as visualized. No significant inflammatory changes. MASTOID AIR CELLS: Nonspecific small right mastoid effusion, unchanged. OTHER FINDINGS: None. IMPRESSION: No intracranial mass, hemorrhage or evidence of acute infarct. Right frontal encephalomalacia, possibly old MCA territory infarct. Small nonspecific right mastoid effusion. Chronic white matter ischemic change.
[2017-07-21] MEDS ORDERED: Potassium Chloride 20 mEq/15 ml LIQ UD NG SCH (12:00)
[2017-07-21] MEDS: Meropenem 500 MG in Sodium Chloride 0.9% 100 ML IVPB SCH ×2 (12:13→22:44)
--- NOTE | 2017-07-21 12:23 | CP.PCM.PN ---
<Lucho,Hilda - Last Filed: 07/21/17 12:30> Subjective - Date & Time of Evaluation Date of Evaluation: 07/21/17 Time of Evaluation: 07:00 - Subjective Subjective: GI Fellow PGY4 Progress Note Pt seen and evaluated, pt lethargic but arousable, also to say his name and identify his at bedside. Pt with nucal rigidity tolerating TF via NGT. Having +BM daily on lactulose. ROS: A 12pt ROS was negative except as above. Objective - Vital Signs/Intake and Output Vital Signs (last 24 hours): Temp Pulse Resp BP Pulse Ox 97.9 F 96 H 20 144/70 97 07/21/17 07:25 07/21/17 07:25 07/21/17 07:25 07/21/17 07:25 07/21/17 07:25 Intake and Output: 07/21/17 07/21/17 06:59 18:59 Intake Total 300 Balance 300 - Medications Medications: Current Medications Albuterol/Ipratropium (Duoneb 3 Mg/0.5 Mg (3 Ml) Ud) 3 ml INH RQ6 [facility] Last Admin: 07/21/17 07:11 Dose: 3 ml Artificial Tears (Artificial Tears) 0 ml OD Q3H PRN PRN Reason: Dry eyes Last Admin: 07/14/17 17:35 Dose: 1 drop Aspirin (Aspirin Chewable) 81 mg PO DAILY [facility] Last Admin: 07/21/17 09:58 Dose: 81 mg Calcium Acetate (Phoslo) 667 mg PO TIDCC [facility] Last Admin: 07/21/17 12:13 Dose: 667 mg Carvedilol (Coreg) 12.5 mg PO BID [facility] Last Admin: 07/21/17 09:58 Dose: 12.5 mg Clonidine HCl (Catapres Tts1 0.1 Mg/24 Hr) 1 patch TD Q7D@1000 [facility] Last Admin: 07/18/17 14:31 Dose: 1 patch Clopidogrel Bisulfate (Plavix) 75 mg PO DAILY [facility] Last Admin: 07/21/17 09:58 Dose: 75 mg Epoetin Kumar (Procrit) 10,000 unit SC MWF [facility] Last Admin: 07/21/17 09:58 Dose: 10,000 unit Heparin Sodium (Porcine) (Heparin) 5,000 units SC Q12H [facility] Last Admin: 07/21/17 09:58 Dose: 5,000 units Meropenem 500 mg/ Sodium (Chloride) 100 mls @ 100 mls/hr IVPB Q12H [facility] PRN Reason: Protocol Last Admin: 07/21/17 12:13 Dose: 100 mls/hr Vancomycin HCl 500 mg/ Sodium (Chloride) 100 mls @ 100 mls/hr IVPB Q48H [facility] PRN Reason: Protocol Last Admin: 07/21/17 00:54 Dose: 100 mls/hr Ampicillin 500 mg/ Sodium (Chloride) 100 mls @ 100 mls/hr IVPB Q8H [facility] PRN Reason: Protocol Last Admin: 07/21/17 09:59 Dose: 100 mls/hr Acyclovir 400 mg/ Dextrose 100 mls @ 100 mls/hr IV Q12H [facility] PRN Reason: Protocol Last Admin: 07/21/17 01:46 Dose: 100 mls/hr Insulin Human Regular (Novolin R) 0 unit SC Q6 [facility] PRN Reason: Protocol Last Admin: 07/21/17 12:13 Dose: 4 unit Lactulose (Enulose) 20 gm PO QID [facility] Stop: 07/22/17 14:01 Last Admin: 07/21/17 09:58 Dose: 20 gm Levothyroxine Sodium (Synthroid) 50 mcg PO DAILY@0630 [facility] Last Admin: 07/21/17 06:22 Dose: 50 mcg Potassium Chloride (Potassium Chloride Oral Soln) 40 meq NG ONCE [facility] Vitamin A (Vitamin A & D Oint Ud Foilpak) 1 ea TOP BID [facility] Last Admin: 07/21/17 09:58 Dose: 1 ea - Labs Labs: 07/21/17 08:02 07/21/17 08:02 PT 12.4 SECONDS (9.7-12.2) H 07/13/17 10:35 INR 1.1 07/13/17 10:35 APTT 31 SECONDS (21-34) 07/13/17 10:35 - Constitutional Appears: Toxic, No Acute Distress, Chronically Ill - Head Exam Head Exam: ATRAUMATIC, NORMAL INSPECTION, NORMOCEPHALIC - Eye Exam Eye Exam: PERRL - ENT Exam ENT Exam: Mucous Membranes Dry Additional comments: NGT - Neck Exam Neck Exam: Meningismus, Normal Inspection Additional comments: Rigidity - Respiratory Exam Respiratory Exam: Decreased Breath Sounds, NORMAL BREATHING PATTERN - Cardiovascular Exam Cardiovascular Exam: RRR, +S1, +S2 - GI/Abdominal Exam GI & Abdominal Exam: Soft, Normal Bowel Sounds. absent: Tenderness, Organomegaly - Rectal Exam Rectal Exam: Deferred - Extremities Exam Extremities Exam: Full ROM, Normal Inspection - Back Exam Back Exam: NORMAL INSPECTION - Neurological Exam Additional comments: lethargy - Psychiatric Exam Psychiatric exam: Depressed - Skin Skin Exam: Dry, Intact, Normal Color, Warm Assessment and Plan - Assessment and Plan (Free Text) Assessment: This is a 77yM with pmhx of ESRD on peritoneal dialysis, HTN / DM, CAD s/p CABG , complete HB s/p PPM presenting with lethargy and confusion. 1. Altered mental status 2. Cirrhosis - unclear etiology Plan: -Continue supportive care - Continue with tube feeding - Continue with lactulose, patient with bowel movements - Continue to monitor LFTs which are stable - Viral hepatitis panel and IGG negative, full autoimmune workup pending, no hx of etoh - Concern for possible meningitis, abx per ID, recommend LP - Follow up neurology recommendations - Compensated cirrhosis fara this time, no plan for any GI intervention - Pt with recent EGD per pt's son, will bring in reports - Please call with any questions or concerns <Chu Shaw - Last Filed: 07/21/17 14:08> Objective - Vital Signs/Intake and Output Vital Signs (last 24 hours): Temp Pulse Resp BP Pulse Ox 97.9 F 96 H 20 144/70 97 07/21/17 07:25 07/21/17 07:25 07/21/17 07:25 07/21/17 07:25 07/21/17 07:25 Intake and Output: 07/21/17 07/21/17 06:59 18:59 Intake Total 300 Balance 300 - Medications Medications: Current Medications Albuterol/Ipratropium (Duoneb 3 Mg/0.5 Mg (3 Ml) Ud) 3 ml INH RQ6 [facility] Last Admin: 07/21/17 13:36 Dose: 3 ml Artificial Tears (Artificial Tears) 0 ml OD Q3H PRN PRN Reason: Dry eyes Last Admin: 07/14/17 17:35 Dose: 1 drop Aspirin (Aspirin Chewable) 81 mg PO DAILY [facility] Last Admin: 07/21/17 09:58 Dose: 81 mg Calcium Acetate (Phoslo) 667 mg PO TIDCC [facility] Last Admin: 07/21/17 12:13 Dose: 667 mg Carvedilol (Coreg) 12.5 mg PO BID [facility] Last Admin: 07/21/17 09:58 Dose: 12.5 mg Clopidogrel Bisulfate (Plavix) 75 mg PO DAILY [facility] Last Admin: 07/21/17 09:58 Dose: 75 mg Epoetin Kumar (Procrit) 10,000 unit SC MWF [facility] Last Admin: 07/21/17 09:58 Dose: 10,000 unit Heparin Sodium (Porcine) (Heparin) 5,000 units SC Q12H [facility] Last Admin: 07/21/17 09:58 Dose: 5,000 units Meropenem 500 mg/ Sodium (Chloride) 100 mls @ 100 mls/hr IVPB Q12H [facility] PRN Reason: Protocol Last Admin: 07/21/17 12:13 Dose: 100 mls/hr Vancomycin HCl 500 mg/ Sodium (Chloride) 100 mls @ 100 mls/hr IVPB Q48H [facility] PRN Reason: Protocol Last Admin: 07/21/17 00:54 Dose: 100 mls/hr Ampicillin 500 mg/ Sodium (Chloride) 100 mls @ 100 mls/hr IVPB Q8H [facility] PRN Reason: Protocol Last Admin: 07/21/17 09:59 Dose: 100 mls/hr Acyclovir 400 mg/ Dextrose 100 mls @ 100 mls/hr IV Q12H [facility] PRN Reason: Protocol Last Admin: 07/21/17 01:46 Dose: 100 mls/hr Insulin Human Regular (Novolin R) 0 unit SC Q6 [facility] PRN Reason: Protocol Last Admin: 07/21/17 12:13 Dose: 4 unit Lactulose (Enulose) 20 gm PO QID [facility] Stop: 07/22/17 14:01 Last Admin: 07/21/17 09:58 Dose: 20 gm Levothyroxine Sodium (Synthroid) 50 mcg PO DAILY@0630 [facility] Last Admin: 07/21/17 06:22 Dose: 50 mcg Vitamin A (Vitamin A & D Oint Ud Foilpak) 1 ea TOP BID [facility] Last Admin: 07/21/17 09:58 Dose: 1 ea - Labs Labs: 07/21/17 08:02 07/21/17 08:02 PT 12.4 SECONDS (9.7-12.2) H 07/13/17 10:35 INR 1.1 07/13/17 10:35 APTT 31 SECONDS (21-34) 07/13/17 10:35 Attending/Attestation - Attestation I have personally seen and examined this patient.: Yes I have fully participated in the care of the patient.: Yes I have reviewed all pertinent clinical information, including history, physical exam and plan: Yes Notes (Text): 07/21/17 14:01 77 year old male with altered mental status, found to also have cirrhosis. Recent endoscopy normal per son. No obvious etiology of cirrhosis. Await additional workup. Altered mental status doesn't appear to be related to cirrhosis, but would continue lactulose anyway.
[2017-07-21] MEDS ORDERED: Potassium Chloride 20 mEq/15 ml LIQ UD NG ONE (13:45)
--- NOTE | 2017-07-21 18:17 | CP.PCM.PN ---
Subjective - Date & Time of Evaluation Date of Evaluation: 07/21/17 Time of Evaluation: 14:00 - Subjective Subjective: I evaluated the patient with family and nurse at bedside. He continues to have intermittent improvement in mental status. He moves all extremities and still has the facial droop. I discussed the case with Dr. Elizabeth in regards to whether or not the patient needs an LP. Objective - Vital Signs/Intake and Output Vital Signs (last 24 hours): Temp Pulse Resp BP Pulse Ox 98.1 F 93 H 20 125/65 100 07/21/17 15:04 07/21/17 15:04 07/21/17 15:04 07/21/17 15:04 07/21/17 15:04 Intake and Output: 07/21/17 07/21/17 06:59 18:59 Intake Total 300 510 Balance 300 510 - Medications Medications: Current Medications Albuterol/Ipratropium (Duoneb 3 Mg/0.5 Mg (3 Ml) Ud) 3 ml INH RQ6 [facility] Last Admin: 07/21/17 13:36 Dose: 3 ml Artificial Tears (Artificial Tears) 0 ml OD Q3H PRN PRN Reason: Dry eyes Last Admin: 07/14/17 17:35 Dose: 1 drop Aspirin (Aspirin Chewable) 81 mg PO DAILY [facility] Last Admin: 07/21/17 09:58 Dose: 81 mg Calcium Acetate (Phoslo) 667 mg PO TIDCC [facility] Last Admin: 07/21/17 17:37 Dose: 667 mg Carvedilol (Coreg) 12.5 mg PO BID [facility] Last Admin: 07/21/17 09:58 Dose: 12.5 mg Clopidogrel Bisulfate (Plavix) 75 mg PO DAILY [facility] Last Admin: 07/21/17 09:58 Dose: 75 mg Epoetin Kumar (Procrit) 10,000 unit SC MWF [facility] Last Admin: 07/21/17 09:58 Dose: 10,000 unit Heparin Sodium (Porcine) (Heparin) 5,000 units SC Q12H [facility] Last Admin: 07/21/17 09:58 Dose: 5,000 units Meropenem 500 mg/ Sodium (Chloride) 100 mls @ 100 mls/hr IVPB Q12H [facility] PRN Reason: Protocol Last Admin: 07/21/17 12:13 Dose: 100 mls/hr Vancomycin HCl 500 mg/ Sodium (Chloride) 100 mls @ 100 mls/hr IVPB Q48H [facility] PRN Reason: Protocol Last Admin: 07/21/17 00:54 Dose: 100 mls/hr Ampicillin 500 mg/ Sodium (Chloride) 100 mls @ 100 mls/hr IVPB Q8H [facility] PRN Reason: Protocol Last Admin: 07/21/17 17:35 Dose: 100 mls/hr Acyclovir 400 mg/ Dextrose 100 mls @ 100 mls/hr IV Q12H [facility] PRN Reason: Protocol Last Admin: 07/21/17 14:21 Dose: 100 mls/hr Insulin Human Regular (Novolin R) 0 unit SC Q6 [facility] PRN Reason: Protocol Last Admin: 07/21/17 12:13 Dose: 4 unit Lactulose (Enulose) 20 gm PO QID [facility] Stop: 07/22/17 14:01 Last Admin: 07/21/17 17:38 Dose: 20 gm Levothyroxine Sodium (Synthroid) 50 mcg PO DAILY@0630 [facility] Last Admin: 07/21/17 06:22 Dose: 50 mcg Vitamin A (Vitamin A & D Oint Ud Foilpak) 1 ea TOP BID [facility] Last Admin: 07/21/17 17:37 Dose: 1 ea - Labs Labs: 07/21/17 08:02 07/21/17 08:02 PT 12.4 SECONDS (9.7-12.2) H 07/13/17 10:35 INR 1.1 07/13/17 10:35 APTT 31 SECONDS (21-34) 07/13/17 10:35 - Neurological Exam Additional comments: Neurologically unchanged compared with previous examination. Assessment and Plan (1) Acute metabolic encephalopathy Assessment & Plan: Based on the fact that he has no fever, his WBC is trending down and there is evidence of a subacute to chronic infarct on the CT head involving the right frontal lobe, the patient is unlikely to have meningoencephalitis and likely has a combination of toxic-metabolic encephalopathy and cerebral ischemia. I do not feel that the patient would benefit from an LP at this time. Status: Acute (2) Yu palsy Assessment & Plan: Continue conservative management. Status: Acute
--- NOTE | 2017-07-21 18:58 | CP.PCM.PN ---
Subjective - Date & Time of Evaluation Date of Evaluation: 07/21/17 Time of Evaluation: 18:54 - Subjective Subjective: Patient is still not completely responding well. Drowsiness noted. Following simple commands. Comfortably breathing. Tolerating the oral feeding. Vital signs are stable otherwise. Chest good air entry regular heart sound. Abdomen soft, ascites present Edema 1+ noted. Coughing noted. Labs reviewed Viral cytology, viral serology is negative. Vital culture so far negative. So far the blood cultures and the microbiological investigation is negative I also spoke to the neurologist. Reviewed the CAT scan. 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 Most likely patient has a metabolic encephalopathy. Less likely meningitis as per neurologist. Meanwhile will continue the current treatment. Supportive care. Aspiration precaution. Continue the IV antibiotic and will follow-up the patient Objective - Vital Signs/Intake and Output Vital Signs (last 24 hours): Temp Pulse Resp BP Pulse Ox 98.1 F 93 H 20 125/65 100 07/21/17 15:04 07/21/17 15:04 07/21/17 15:04 07/21/17 15:04 07/21/17 15:04 Intake and Output: 07/21/17 07/21/17 06:59 18:59 Intake Total 300 510 Balance 300 510 - Medications Medications: Current Medications Albuterol/Ipratropium (Duoneb 3 Mg/0.5 Mg (3 Ml) Ud) 3 ml INH RQ6 [facility] Last Admin: 07/21/17 13:36 Dose: 3 ml Artificial Tears (Artificial Tears) 0 ml OD Q3H PRN PRN Reason: Dry eyes Last Admin: 07/14/17 17:35 Dose: 1 drop Aspirin (Aspirin Chewable) 81 mg PO DAILY [facility] Last Admin: 07/21/17 09:58 Dose: 81 mg Calcium Acetate (Phoslo) 667 mg PO TIDCC [facility] Last Admin: 07/21/17 17:37 Dose: 667 mg Carvedilol (Coreg) 12.5 mg PO BID [facility] Last Admin: 07/21/17 09:58 Dose: 12.5 mg Clopidogrel Bisulfate (Plavix) 75 mg PO DAILY [facility] Last Admin: 07/21/17 09:58 Dose: 75 mg Epoetin Kumar (Procrit) 10,000 unit SC MWF [facility] Last Admin: 07/21/17 09:58 Dose: 10,000 unit Heparin Sodium (Porcine) (Heparin) 5,000 units SC Q12H [facility] Last Admin: 07/21/17 09:58 Dose: 5,000 units Meropenem 500 mg/ Sodium (Chloride) 100 mls @ 100 mls/hr IVPB Q12H [facility] PRN Reason: Protocol Last Admin: 07/21/17 12:13 Dose: 100 mls/hr Vancomycin HCl 500 mg/ Sodium (Chloride) 100 mls @ 100 mls/hr IVPB Q48H [facility] PRN Reason: Protocol Last Admin: 07/21/17 00:54 Dose: 100 mls/hr Ampicillin 500 mg/ Sodium (Chloride) 100 mls @ 100 mls/hr IVPB Q8H [facility] PRN Reason: Protocol Last Admin: 07/21/17 17:35 Dose: 100 mls/hr Acyclovir 400 mg/ Dextrose 100 mls @ 100 mls/hr IV Q12H [facility] PRN Reason: Protocol Last Admin: 07/21/17 14:21 Dose: 100 mls/hr Insulin Human Regular (Novolin R) 0 unit SC Q6 [facility] PRN Reason: Protocol Last Admin: 07/21/17 12:13 Dose: 4 unit Lactulose (Enulose) 20 gm PO QID [facility] Stop: 07/22/17 14:01 Last Admin: 07/21/17 17:38 Dose: 20 gm Levothyroxine Sodium (Synthroid) 50 mcg PO DAILY@0630 [facility] Last Admin: 07/21/17 06:22 Dose: 50 mcg Vitamin A (Vitamin A & D Oint Ud Foilpak) 1 ea TOP BID [facility] Last Admin: 07/21/17 17:37 Dose: 1 ea - Labs Labs: 07/21/17 08:02 07/21/17 08:02 PT 12.4 SECONDS (9.7-12.2) H 07/13/17 10:35 INR 1.1 07/13/17 10:35 APTT 31 SECONDS (21-34) 07/13/17 10:35
--- NOTE | 2017-07-21 20:03 | CP.PCM.PN ---
Subjective - Date & Time of Evaluation Date of Evaluation: 07/21/17 Time of Evaluation: 20:03 - Subjective Subjective: afebrile, weak poorly responsive. rt .facial droop moving all extremities. seen by neurology dr vieira AND NOTED REPEAT CT HEAD 07/21/17 NOTED - NO IC MASS,/HEMORRHAGE/OR ACUTE INFARCT RT MASTOID EFFUSION. LABS REVIEWED. WBC IMPROVING. PROCALCITONIN HIGH. EMA-VE LFTS IMPROVING. EEG -P. Objective - Vital Signs/Intake and Output Vital Signs (last 24 hours): Temp Pulse Resp BP Pulse Ox 98.1 F 93 H 20 125/65 100 07/21/17 15:04 07/21/17 15:04 07/21/17 15:04 07/21/17 15:04 07/21/17 15:04 Intake and Output: 07/21/17 07/22/17 18:59 06:59 Intake Total 510 Balance 510 - Medications Medications: Current Medications Albuterol/Ipratropium (Duoneb 3 Mg/0.5 Mg (3 Ml) Ud) 3 ml INH RQ6 [facility] Last Admin: 07/21/17 13:36 Dose: 3 ml Artificial Tears (Artificial Tears) 0 ml OD Q3H PRN PRN Reason: Dry eyes Last Admin: 07/14/17 17:35 Dose: 1 drop Aspirin (Aspirin Chewable) 81 mg PO DAILY [facility] Last Admin: 07/21/17 09:58 Dose: 81 mg Calcium Acetate (Phoslo) 667 mg PO TIDCC [facility] Last Admin: 07/21/17 17:37 Dose: 667 mg Carvedilol (Coreg) 12.5 mg PO BID [facility] Last Admin: 07/21/17 18:30 Dose: 12.5 mg Clopidogrel Bisulfate (Plavix) 75 mg PO DAILY [facility] Last Admin: 07/21/17 09:58 Dose: 75 mg Epoetin Kumar (Procrit) 10,000 unit SC MWF [facility] Last Admin: 07/21/17 09:58 Dose: 10,000 unit Heparin Sodium (Porcine) (Heparin) 5,000 units SC Q12H [facility] Last Admin: 07/21/17 09:58 Dose: 5,000 units Meropenem 500 mg/ Sodium (Chloride) 100 mls @ 100 mls/hr IVPB Q12H [facility] PRN Reason: Protocol Last Admin: 07/21/17 12:13 Dose: 100 mls/hr Vancomycin HCl 500 mg/ Sodium (Chloride) 100 mls @ 100 mls/hr IVPB Q48H [facility] PRN Reason: Protocol Last Admin: 07/21/17 00:54 Dose: 100 mls/hr Ampicillin 500 mg/ Sodium (Chloride) 100 mls @ 100 mls/hr IVPB Q8H [facility] PRN Reason: Protocol Last Admin: 07/21/17 17:35 Dose: 100 mls/hr Acyclovir 400 mg/ Dextrose 100 mls @ 100 mls/hr IV Q12H [facility] PRN Reason: Protocol Last Admin: 07/21/17 14:21 Dose: 100 mls/hr Insulin Human Regular (Novolin R) 0 unit SC Q6 [facility] PRN Reason: Protocol Last Admin: 07/21/17 18:15 Dose: 6 unit Lactulose (Enulose) 20 gm PO QID [facility] Stop: 07/22/17 14:01 Last Admin: 07/21/17 17:38 Dose: 20 gm Levothyroxine Sodium (Synthroid) 50 mcg PO DAILY@0630 [facility] Last Admin: 07/21/17 06:22 Dose: 50 mcg Vitamin A (Vitamin A & D Oint Ud Foilpak) 1 ea TOP BID [facility] Last Admin: 07/21/17 17:37 Dose: 1 ea - Labs Labs: 07/21/17 08:02 07/21/17 08:02 PT 12.4 SECONDS (9.7-12.2) H 07/13/17 10:35 INR 1.1 07/13/17 10:35 APTT 31 SECONDS (21-34) 07/13/17 10:35 - Constitutional Appears: No Acute Distress, Confused - Head Exam Head Exam: NORMOCEPHALIC - Eye Exam Eye Exam: PERRL - ENT Exam ENT Exam: Mucous Membranes Moist - Neck Exam Neck Exam: Normal Inspection. absent: Lymphadenopathy Additional comments: ?NUCHAL RIGIDITY - Respiratory Exam Respiratory Exam: Clear to Ausculation Bilateral - Cardiovascular Exam Cardiovascular Exam: REGULAR RHYTHM, +S1, +S2 - GI/Abdominal Exam GI & Abdominal Exam: Soft, Normal Bowel Sounds - Extremities Exam Extremities Exam: absent: Calf Tenderness, Pedal Edema - Neurological Exam Neurological Exam: Altered, Awake - Psychiatric Exam Psychiatric exam: Flat Affect - Skin Skin Exam: Normal Color, Warm. absent: Rash Assessment and Plan (1) Toxic metabolic encephalopathy Assessment & Plan: ALTERED MENTAL STATUS-ETIOLOGY NOT CLEAR NO LP PER NEUROLOGY. CT SCAN HEAD ? SUBACUTE FRONTAL LOBE INFARCT/ ISCHEMIC CHANGES ?TIA CONTINUE TO MONITOR NEURO STATUS. EEG --PENDING CONTINUE TO MONITOR ELECTROLYTES/LFTS . WILL DISCUSS WITH PMD/AND NEUROLOGY Status: Acute (2) Yu palsy Assessment & Plan: PT HAS RIGHT YU'S PALSY. CT SCAN HEAD SHOWS RIGHT MASTOID EFFUSION. SOURCE OF SEPSIS/LEUKOCYTOSIS ? NOT CLEAR. OTITIS MEDIA WITH RT MASTOID EFFUSION ? MASTOIDITIS/ ? MENDOZA MENDEZ SYNDROME R/O MENINGO ENCEPAHALITIS CONTINUE iv ANTIBIOTICS IV MERREM 500 EVERY 12 HOURLY. CONTINUE VANCOMYCIN 500 EVERY 48 HOURLY. FOLLOW-UP VANCO TROUGH . 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 Status: Acute (5) Heart block AV complete Assessment & Plan: S/P RECENT PACEMAKER 2WKS AGO FOR COMLETE HEART BLOCK.. Status: Acute
[2017-07-21] MEDS: levETIRAcetam 100 mg/ml (5ml) Oral Syringe PO SCH (22:09)
[2017-07-22] MEDS: (Novolin R) Insulin Human Regular 100 units/ml vial SC SCH ×4 (00:45→17:51)
[2017-07-22] MEDS: Albuterol-Ipratrop 3 mg / 0.5 (3 ml) UD INH SCH ×2 (01:23→08:08)
[2017-07-22] MEDS: DEXTROSE 5% IV SCH (01:43)
[2017-07-22] MEDS: WATER IV SCH (01:43)
[2017-07-22] MEDS: ACYCLOVIR IV SCH (01:43)
[2017-07-22] MEDS: Levothyroxine 50 MCG TAB PO SCH (06:14)
[2017-07-22 07:54] LABS: VENOUS BLOOD GAS BASE EXCESS 1.5 mmol/L (0.0-2.0); VENOUS BLOOD GAS PCO2 43 mmHg (40-60); VENOUS BLOOD GAS PO2 49 mm/Hg (30-55)
[2017-07-22 07:59] LABS: BASO % 0.2 % (0.0-2.0); EOS # 0.4 K/uL (0.0-0.7); EOS % 2.7 % (0.0-4.0); HEMOGLOBIN 8.4 g/dL (12.0-18.0); LYMPH # 1.4 K/uL (1.0-4.3); LYMPH % 9.9 % (20.0-40.0); MEAN CELL VOLUME 95.1 fL (80.0-94.0); MEAN CORPUSCULAR HEMOGLOBIN 31.9 pg (27.0-31.0); MEAN CORPUSCULAR HGB CONC 33.5 g/dL (33.0-37.0); MEAN PLATELET VOLUME 8.1 fL (7.2-11.7); MONO # 2.1 K/uL (0.0-0.8); NEUT # 10.3 K/uL (1.8-7.0); NEUT % 72.2 % (50.0-75.0); NRBC % 0.1 % (0.0-2.0); PLATELET COUNT 221 K/uL (130-400); RBC 2.64 Mil/uL (4.40-5.90); RED CELL DISTRIBUTION WIDTH 16.7 % (11.5-14.5); WHITE BLOOD COUNT 14.3 K/uL (4.8-10.8)
[2017-07-22 08:16] LABS: ALB/GLOB RATIO 0.9 (1.0-2.1); CALCIUM 8.5 mg/dl (8.6-10.4)
[2017-07-22 09:08] LABS: LYMPHOCYTE 8 % (20-40); MONOCYTE 13 % (0-10); TOTAL CELLS COUNTED 100
[2017-07-22 09:09] LABS: ANISOCYTOSIS SLIGHT; EOSINOPHIL 1 % (0-4); HYPOCHROMIC SLIGHT; NEUTROPHIL 78 % (50-75); OVALOCYTES SLIGHT; PLATELET ESTIMATE NORMAL (NORMAL); POIKILOCYTOSIS SLIGHT; TARGET CELLS SLIGHT
[2017-07-22] MEDS: Vitamins A & D Oint UD Foilpak TOP SCH ×2 (09:17→17:55)
[2017-07-22] MEDS: levETIRAcetam 100 mg/ml (5ml) Oral Syringe PO SCH ×2 (09:26→18:18)
--- NOTE | 2017-07-22 10:10 | CP.PCM.PN ---
Subjective - Date & Time of Evaluation Date of Evaluation: 07/22/17 Time of Evaluation: 10:08 - Subjective Subjective: seen and examined chart reviewd hemodynamically stable high blood sugars noted low k unresponsive, ros cannot be obtained discussed w/ icu team and pt's family Objective - Vital Signs/Intake and Output Vital Signs (last 24 hours): Temp Pulse Resp BP Pulse Ox 98.2 F 95 H 18 155/54 H 99 07/22/17 07:00 07/22/17 07:00 07/22/17 07:00 07/22/17 09:18 07/22/17 07:00 Intake and Output: 07/22/17 07/22/17 06:59 18:59 Intake Total 510 Balance 510 - Medications Medications: Current Medications Albuterol/Ipratropium (Duoneb 3 Mg/0.5 Mg (3 Ml) Ud) 3 ml INH RQ6 [facility] Last Admin: 07/22/17 08:08 Dose: 3 ml Artificial Tears (Artificial Tears) 0 ml OD Q3H PRN PRN Reason: Dry eyes Last Admin: 07/14/17 17:35 Dose: 1 drop Aspirin (Aspirin Chewable) 81 mg PO DAILY [facility] Last Admin: 07/22/17 09:18 Dose: 81 mg Calcium Acetate (Phoslo) 667 mg PO TIDCC [facility] Last Admin: 07/22/17 08:30 Dose: 667 mg Carvedilol (Coreg) 12.5 mg PO BID [facility] Last Admin: 07/22/17 09:18 Dose: 12.5 mg Clopidogrel Bisulfate (Plavix) 75 mg PO DAILY [facility] Last Admin: 07/22/17 09:18 Dose: 75 mg Epoetin Kumar (Procrit) 10,000 unit SC MWF [facility] Last Admin: 07/21/17 09:58 Dose: 10,000 unit Heparin Sodium (Porcine) (Heparin) 5,000 units SC Q12H [facility] Last Admin: 07/22/17 09:18 Dose: 5,000 units Meropenem 500 mg/ Sodium (Chloride) 100 mls @ 100 mls/hr IVPB Q12H [facility] PRN Reason: Protocol Last Admin: 07/21/17 22:44 Dose: 100 mls/hr Vancomycin HCl 500 mg/ Sodium (Chloride) 100 mls @ 100 mls/hr IVPB Q48H [facility] PRN Reason: Protocol Last Admin: 07/21/17 00:54 Dose: 100 mls/hr Ampicillin 500 mg/ Sodium (Chloride) 100 mls @ 100 mls/hr IVPB Q8H [facility] PRN Reason: Protocol Last Admin: 07/22/17 09:15 Dose: 100 mls/hr Acyclovir 400 mg/ Dextrose 100 mls @ 100 mls/hr IV Q12H [facility] PRN Reason: Protocol Last Admin: 07/22/17 01:43 Dose: 100 mls/hr Insulin Human Regular (Novolin R) 0 unit SC Q6 [facility] PRN Reason: Protocol Last Admin: 07/22/17 06:34 Dose: 10 unit Lactulose (Enulose) 20 gm PO QID [facility] Stop: 07/22/17 14:01 Last Admin: 07/22/17 09:17 Dose: 20 gm Levetiracetam (Keppra) 500 mg PO BID [facility] Last Admin: 07/22/17 09:26 Dose: 500 mg Levothyroxine Sodium (Synthroid) 50 mcg PO DAILY@0630 [facility] Last Admin: 07/22/17 06:14 Dose: 50 mcg Vitamin A (Vitamin A & D Oint Ud Foilpak) 1 ea TOP BID [facility] Last Admin: 07/22/17 09:17 Dose: 1 ea - Labs Labs: 07/22/17 07:47 07/22/17 07:47 PT 12.4 SECONDS (9.7-12.2) H 07/13/17 10:35 INR 1.1 07/13/17 10:35 APTT 31 SECONDS (21-34) 07/13/17 10:35 - Constitutional Appears: Non-toxic, No Acute Distress, Older Than Stated Age, Chronically Ill - Head Exam Head Exam: NORMAL INSPECTION, NORMOCEPHALIC - Eye Exam Eye Exam: Normal appearance, PERRL - ENT Exam ENT Exam: Mucous Membranes Dry - Neck Exam Neck Exam: Normal Inspection - Respiratory Exam Respiratory Exam: Decreased Breath Sounds, NORMAL BREATHING PATTERN (tachypneic) - Cardiovascular Exam Cardiovascular Exam: REGULAR RHYTHM, RRR - GI/Abdominal Exam GI & Abdominal Exam: Distended (pd fluid), Soft - Extremities Exam Extremities Exam: Normal Inspection - Neurological Exam Neurological Exam: absent: Alert, Awake - Skin Skin Exam: Dry, Intact, Warm Assessment and Plan (1) TIA (transient ischemic attack) Status: Acute (2) ESRD (end stage renal disease) Status: Acute (3) Heart block Status: Acute (4) Syncope Status: Acute - Assessment and Plan (Free Text) Assessment: altered mental status -unclear etiology esrd on pd hypokalemia dm htn cirrhosis bells palsy plan: neuro management. consider switching to diabetic tube feeds. discussed w/ family, will try hd treatment today, ?metabolic encephalopathy. catheter to be placed on perri check tsh and ft4
--- NOTE | 2017-07-22 11:36 | RAD ---
HISTORY: pneumonia COMPARISON: No prior. FINDINGS: In situ NGT, the tip of which lies left parasagittal upper abdomen. LUNGS: Bibasilar opacities left greater than right. Findings may represent atelectasis and or infiltrates. Central pulmonary vasculature is less congested in appearance PLEURA: No significant pleural effusion identified, no pneumothorax apparent. CARDIOVASCULAR: No change bipolar pacemaker. . Cardiomegaly. OSSEOUS STRUCTURES: No significant abnormalities. VISUALIZED UPPER ABDOMEN: Normal. OTHER FINDINGS: None. IMPRESSION: Bibasilar opacities left greater than right. Findings may represent atelectasis and or infiltrates. Central pulmonary vasculature is less congested in appearance
[2017-07-22 12:01] LABS: ARTERIAL BLOOD GAS HCO3 29.4 mmol/L (21-28); ARTERIAL BLOOD GAS PCO2 52 mm/Hg (35-45); ARTERIAL BLOOD GAS PH 7.39 (7.35-7.45); ARTERIAL BLOOD GAS PO2 73 mm/Hg (80-100)
[2017-07-22 12:02] LABS: ARTERIAL BLOOD GAS TCO2 33.1 mmol/L (22-28)
[2017-07-22 12:04] LABS: ARTERIAL BLOOD GAS O2 SAT 96.2 % (95-98)
--- NOTE | 2017-07-22 12:32 | CP.CCUPN ---
<Tameka Chin - Last Filed: 07/22/17 16:19> CCU Subjective - Physician Review Subjective (Free Text): Patient seen and examined at bedside. Patient is very lethargic, ROS unattainable. CCU Objective - Vital Signs / Intake & Output Vital Signs (Last 4 hours): Vital Signs Temp Pulse Resp BP Pulse Ox 07/22/17 12:00 98.6 F 82 26 H 129/61 99 07/22/17 11:00 84 23 110/58 L 99 07/22/17 10:00 99.1 F 91 H 22 96/46 L 98 07/22/17 09:18 155/54 H Intake and Output (Last 8hrs): Intake & Output 07/21/17 07/22/17 07/22/17 22:59 06:59 14:59 Intake Total 1020 Balance 1020 Intake: Intake, IV Amount 600 Left Forearm 600 Tube Feeding 420 Other: # Bowel Movements 1 - Physical Exam Physical Exam Limitations: Positive for: Altered Mental Status Head: Positive for: Atraumatic, Normocephalic Pupils: Positive for: PERRL Extroacular Muscles: Positive for: EOMI Conjunctiva: Positive for: Normal Mouth: Positive for: Dry Neck: Positive for: Normal Range of Motion Respiratory/Chest: Positive for: Clear to Auscultation, Good Air Exchange. Negative for: Respiratory Distress Cardiovascular: Positive for: Tachycardic Abdomen: Positive for: Normal Bowel Sounds, Other (peritoneal catheter in place , c/d/i ) Back: Positive for: Normal Inspection Upper Extremity: Positive for: Normal Inspection, NORMAL PULSES, Neurovascularly Intact, Capillary Refill < 2s. Negative for: Cyanosis, Edema, Tenderness, Swelling, Erythema Lower Extremity: Positive for: Normal Inspection, NORMAL PULSES. Negative for: Edema, CALF TENDERNESS, Tenderness, Swelling, Erythema Neurological: Positive for: Other (right facial droop ) Skin: Positive for: Warm, Dry, Normal Color. Negative for: Rashes Psychiatric: Positive for: Alert, Lethargic - Medications Active Medications: Active Medications Generic Name Dose Route Start Last Admin Trade Name Freq PRN Reason Stop Dose Admin Albuterol/Ipratropium 3 ml 07/13/17 14:00 07/22/17 08:08 Duoneb 3 Mg/0.5 Mg (3 Ml) Ud INH 3 ml RQ6 JAYLA Administration Artificial Tears 0 ml 07/13/17 22:00 07/14/17 17:35 Artificial Tears OD 1 drop Q3H PRN Administration Dry eyes Aspirin 81 mg 07/15/17 10:00 07/22/17 09:18 Aspirin Chewable PO 81 mg DAILY JAYLA Administration Calcium Acetate 667 mg 07/13/17 12:00 07/22/17 08:30 Phoslo PO 667 mg TIDCC JAYLA Administration Carvedilol 12.5 mg 07/22/17 10:00 07/22/17 09:18 Coreg PO 12.5 mg BID JAYLA Administration Clopidogrel Bisulfate 75 mg 07/15/17 10:00 07/22/17 09:18 Plavix PO 75 mg DAILY JAYLA Administration Epoetin Kumar 10,000 unit 07/16/17 09:00 07/21/17 09:58 Procrit SC 10,000 unit MWF JAYLA Administration Heparin Sodium (Porcine) 5,000 units 07/13/17 22:00 07/22/17 09:18 Heparin SC 5,000 units Q12H JAYLA Administration Meropenem 500 mg/ Sodium 100 mls @ 100 mls/hr 07/18/17 23:30 07/21/17 22:44 Chloride IVPB 100 mls/hr Q12H JAYLA Administration Protocol Vancomycin HCl 500 mg/ Sodium 100 mls @ 100 mls/hr 07/19/17 01:00 07/21/17 00 :54 Chloride IVPB 100 mls/hr Q48H JAYLA Administration Protocol Acyclovir 200 mg/ Sodium 100 mls @ 100 mls/hr 07/22/17 12:30 Chloride IV Q12H JAYLA Protocol Insulin Human Regular 0 unit 07/15/17 07:32 07/22/17 06:34 Novolin R SC 10 unit Q6 JAYLA Administration Protocol Lactulose 20 gm 07/20/17 14:00 07/22/17 09:17 Enulose PO 07/22/17 14:01 20 gm QID JAYLA Administration Levetiracetam 500 mg 07/21/17 22:00 07/22/17 09:26 Keppra PO 500 mg BID JAYLA Administration Levothyroxine Sodium 50 mcg 07/14/17 06:30 07/22/17 06:14 Synthroid PO 50 mcg DAILY@0630 JAYLA Administration Vitamin A 1 ea 07/19/17 18:00 07/22/17 09:17 Vitamin A & D Oint Ud Foilpak TOP 1 ea BID JAYLA Administration - Patient Studies Lab Studies: Microbiology Studies 07/18/17 11:10 Blood Culture - Preliminary Blood NO GROWTH AFTER 4 DAYS Lab Studies 07/22/17 07/22/17 07/22/17 Range/Units 12:24 11:33 07:49 WBC (4.8-10.8) K/uL RBC (4.40-5.90) Mil/uL Hgb (12.0-18.0) g/dL Hct (35.0-51.0) % MCV (80.0-94.0) fL MCH (27.0-31.0) pg MCHC (33.0-37.0) g/dL RDW (11.5-14.5) % Plt Count (130-400) K/uL MPV (7.2-11.7) fL Neut % (Auto) (50.0-75.0) % Lymph % (Auto) (20.0-40.0) % Weld % (Auto) (0.0-10.0) % Eos % (Auto) (0.0-4.0) % Baso % (Auto) (0.0-2.0) % Neut # (Auto) (1.8-7.0) K/uL Lymph # (Auto) (1.0-4.3) K/uL Weld # (Auto) (0.0-0.8) K/uL Eos # (Auto) (0.0-0.7) K/uL Baso # (Auto) (0.0-0.2) K/uL Neutrophils % (Manual) (50-75) % Lymphocytes % (Manual) (20-40) % Monocytes % (Manual) (0-10) % Eosinophils % (Manual) (0-4) % Platelet Estimate (NORMAL) Hypochromasia (manual) Poikilocytosis (manual Anisocytosis (manual) Target Cells Ovalocytes pCO2 52 H (35-45) mm/Hg pO2 73 L 49 (30-55) mm/Hg HCO3 29.4 H (21-28) mmol/L ABG pH 7.39 (7.35-7.45) ABG Total CO2 33.1 H (22-28) mmol/L ABG O2 Saturation 96.2 (95-98) % ABG Base Excess 5.8 H (-2.0-3.0) mmol/L VBG pH 7.40 (7.32-7.43) VBG pCO2 43 (40-60) mmHg VBG HCO3 25.7 mmol/L VBG Total CO2 27.9 (22-28) mmol/L VBG O2 Sat (Calc) 90.1 H (40-65) % VBG Base Excess 1.5 (0.0-2.0) mmol/L VBG Potassium 3.5 L (3.6-5.2) mmol/L Glucose 371 H (75-110) mg/dl Lactate 2.1 (0.7-2.1) mmol/L Sodium 133.0 (132-148) mmol/L Potassium (3.6-5.2) mmol/L Chloride 99.0 (98-107) mmol/L Carbon Dioxide (22-30) mmol/L Anion Gap (10-20) BUN (9-20) mg/dL Creatinine (0.8-1.5) mg/dL Est GFR ( Amer) Est GFR (Non-Af Amer) POC Glucose (mg/dL) 228 H (65-110) mg/dL Random Glucose (75-110) mg/dL Calcium (8.6-10.4) mg/dl Phosphorus (2.5-4.5) mg/dL Magnesium (1.6-2.3) mg/dL Total Bilirubin (0.2-1.3) mg/dL AST (17-59) U/L ALT (21-72) U/L Alkaline Phosphatase (38-126) U/L Ammonia (9-33) umol/L Total Protein (6.3-8.3) g/dL Albumin (3.5-5.0) g/dL Globulin (2.2-3.9) gm/dL Albumin/Globulin Ratio (1.0-2.1) Venous Blood Potassium 3.5 L (3.6-5.2) mmol/L EMA 6 Profile (NEGATIVE) Anti-Mitochondrial Ab (Negative) Anti-Smooth Muscle Ab (Negative) Lyme Disease Screen index 07/22/17 07/22/17 07/22/17 Range/Units 07:47 07:47 07:47 WBC 14.3 H (4.8-10.8) K/uL RBC 2.64 L (4.40-5.90) Mil/uL Hgb 8.4 L (12.0-18.0) g/dL Hct 25.1 L (35.0-51.0) % MCV 95.1 H (80.0-94.0) fL MCH 31.9 H (27.0-31.0) pg MCHC 33.5 (33.0-37.0) g/dL RDW 16.7 H (11.5-14.5) % Plt Count 221 (130-400) K/uL MPV 8.1 (7.2-11.7) fL Neut % (Auto) 72.2 (50.0-75.0) % Lymph % (Auto) 9.9 L (20.0-40.0) % Weld % (Auto) 15.0 H (0.0-10.0) % Eos % (Auto) 2.7 (0.0-4.0) % Baso % (Auto) 0.2 (0.0-2.0) % Neut # (Auto) 10.3 H (1.8-7.0) K/uL Lymph # (Auto) 1.4 (1.0-4.3) K/uL Weld # (Auto) 2.1 H (0.0-0.8) K/uL Eos # (Auto) 0.4 (0.0-0.7) K/uL Baso # (Auto) 0.0 (0.0-0.2) K/uL Neutrophils % (Manual) 78 H (50-75) % Lymphocytes % (Manual) 8 L (20-40) % Monocytes % (Manual) 13 H (0-10) % Eosinophils % (Manual) 1 (0-4) % Platelet Estimate Normal (NORMAL) Hypochromasia (manual) Slight Poikilocytosis (manual Slight Anisocytosis (manual) Slight Target Cells Slight Ovalocytes Slight pCO2 (35-45) mm/Hg pO2 (30-55) mm/Hg HCO3 (21-28) mmol/L ABG pH (7.35-7.45) ABG Total CO2 (22-28) mmol/L ABG O2 Saturation (95-98) % ABG Base Excess (-2.0-3.0) mmol/L VBG pH (7.32-7.43) VBG pCO2 (40-60) mmHg VBG HCO3 mmol/L VBG Total CO2 (22-28) mmol/L VBG O2 Sat (Calc) (40-65) % VBG Base Excess (0.0-2.0) mmol/L VBG Potassium (3.6-5.2) mmol/L Glucose (75-110) mg/dl Lactate (0.7-2.1) mmol/L Sodium 133 (132-148) mmol/L Potassium 3.5 L (3.6-5.2) mmol/L Chloride 93 L (98-107) mmol/L Carbon Dioxide 26 (22-30) mmol/L Anion Gap 17 (10-20) BUN 54 H (9-20) mg/dL Creatinine 8.0 H* (0.8-1.5) mg/dL Est GFR ( Amer) 8 Est GFR (Non-Af Amer) 7 POC Glucose (mg/dL) (65-110) mg/dL Random Glucose 355 H (75-110) mg/dL Calcium 8.5 L (8.6-10.4) mg/dl Phosphorus 3.9 (2.5-4.5) mg/dL Magnesium 2.0 (1.6-2.3) mg/dL Total Bilirubin 0.7 (0.2-1.3) mg/dL AST 47 (17-59) U/L ALT 75 H (21-72) U/L Alkaline Phosphatase 212 H (38-126) U/L Ammonia < 9 L (9-33) umol/L Total Protein 6.1 L (6.3-8.3) g/dL Albumin 3.0 L (3.5-5.0) g/dL Globulin 3.2 (2.2-3.9) gm/dL Albumin/Globulin Ratio 0.9 L (1.0-2.1) Venous Blood Potassium (3.6-5.2) mmol/L EMA 6 Profile (NEGATIVE) Anti-Mitochondrial Ab (Negative) Anti-Smooth Muscle Ab (Negative) Lyme Disease Screen index 07/22/17 07/22/17 07/21/17 Range/Units 06:16 00:27 17:50 WBC (4.8-10.8) K/uL RBC (4.40-5.90) Mil/uL Hgb (12.0-18.0) g/dL Hct (35.0-51.0) % MCV (80.0-94.0) fL MCH (27.0-31.0) pg MCHC (33.0-37.0) g/dL RDW (11.5-14.5) % Plt Count (130-400) K/uL MPV (7.2-11.7) fL Neut % (Auto) (50.0-75.0) % Lymph % (Auto) (20.0-40.0) % Weld % (Auto) (0.0-10.0) % Eos % (Auto) (0.0-4.0) % Baso % (Auto) (0.0-2.0) % Neut # (Auto) (1.8-7.0) K/uL Lymph # (Auto) (1.0-4.3) K/uL Weld # (Auto) (0.0-0.8) K/uL Eos # (Auto) (0.0-0.7) K/uL Baso # (Auto) (0.0-0.2) K/uL Neutrophils % (Manual) (50-75) % Lymphocytes % (Manual) (20-40) % Monocytes % (Manual) (0-10) % Eosinophils % (Manual) (0-4) % Platelet Estimate (NORMAL) Hypochromasia (manual) Poikilocytosis (manual Anisocytosis (manual) Target Cells Ovalocytes pCO2 (35-45) mm/Hg pO2 (30-55) mm/Hg HCO3 (21-28) mmol/L ABG pH (7.35-7.45) ABG Total CO2 (22-28) mmol/L ABG O2 Saturation (95-98) % ABG Base Excess (-2.0-3.0) mmol/L VBG pH (7.32-7.43) VBG pCO2 (40-60) mmHg VBG HCO3 mmol/L VBG Total CO2 (22-28) mmol/L VBG O2 Sat (Calc) (40-65) % VBG Base Excess (0.0-2.0) mmol/L VBG Potassium (3.6-5.2) mmol/L Glucose (75-110) mg/dl Lactate (0.7-2.1) mmol/L Sodium (132-148) mmol/L Potassium (3.6-5.2) mmol/L Chloride (98-107) mmol/L Carbon Dioxide (22-30) mmol/L Anion Gap (10-20) BUN (9-20) mg/dL Creatinine (0.8-1.5) mg/dL Est GFR ( Amer) Est GFR (Non-Af Amer) POC Glucose (mg/dL) 394 H 363 H 283 H (65-110) mg/dL Random Glucose (75-110) mg/dL Calcium (8.6-10.4) mg/dl Phosphorus (2.5-4.5) mg/dL Magnesium (1.6-2.3) mg/dL Total Bilirubin (0.2-1.3) mg/dL AST (17-59) U/L ALT (21-72) U/L Alkaline Phosphatase (38-126) U/L Ammonia (9-33) umol/L Total Protein (6.3-8.3) g/dL Albumin (3.5-5.0) g/dL Globulin (2.2-3.9) gm/dL Albumin/Globulin Ratio (1.0-2.1) Venous Blood Potassium (3.6-5.2) mmol/L EMA 6 Profile (NEGATIVE) Anti-Mitochondrial Ab (Negative) Anti-Smooth Muscle Ab (Negative) Lyme Disease Screen index 07/21/17 07/21/17 07/20/17 Range/Units 08:02 06:16 06:38 WBC (4.8-10.8) K/uL RBC (4.40-5.90) Mil/uL Hgb (12.0-18.0) g/dL Hct (35.0-51.0) % MCV (80.0-94.0) fL MCH (27.0-31.0) pg MCHC (33.0-37.0) g/dL RDW (11.5-14.5) % Plt Count (130-400) K/uL MPV (7.2-11.7) fL Neut % (Auto) (50.0-75.0) % Lymph % (Auto) (20.0-40.0) % Weld % (Auto) (0.0-10.0) % Eos % (Auto) (0.0-4.0) % Baso % (Auto) (0.0-2.0) % Neut # (Auto) (1.8-7.0) K/uL Lymph # (Auto) (1.0-4.3) K/uL Weld # (Auto) (0.0-0.8) K/uL Eos # (Auto) (0.0-0.7) K/uL Baso # (Auto) (0.0-0.2) K/uL Neutrophils % (Manual) (50-75) % Lymphocytes % (Manual) (20-40) % Monocytes % (Manual) (0-10) % Eosinophils % (Manual) (0-4) % Platelet Estimate (NORMAL) Hypochromasia (manual) Poikilocytosis (manual Anisocytosis (manual) Target Cells Ovalocytes pCO2 (35-45) mm/Hg pO2 (30-55) mm/Hg HCO3 (21-28) mmol/L ABG pH (7.35-7.45) ABG Total CO2 (22-28) mmol/L ABG O2 Saturation (95-98) % ABG Base Excess (-2.0-3.0) mmol/L VBG pH (7.32-7.43) VBG pCO2 (40-60) mmHg VBG HCO3 mmol/L VBG Total CO2 (22-28) mmol/L VBG O2 Sat (Calc) (40-65) % VBG Base Excess (0.0-2.0) mmol/L VBG Potassium (3.6-5.2) mmol/L Glucose (75-110) mg/dl Lactate (0.7-2.1) mmol/L Sodium (132-148) mmol/L Potassium (3.6-5.2) mmol/L Chloride (98-107) mmol/L Carbon Dioxide (22-30) mmol/L Anion Gap (10-20) BUN (9-20) mg/dL Creatinine (0.8-1.5) mg/dL Est GFR ( Amer) Est GFR (Non-Af Amer) POC Glucose (mg/dL) 351 H (65-110) mg/dL Random Glucose (75-110) mg/dL Calcium (8.6-10.4) mg/dl Phosphorus (2.5-4.5) mg/dL Magnesium (1.6-2.3) mg/dL Total Bilirubin (0.2-1.3) mg/dL AST (17-59) U/L ALT (21-72) U/L Alkaline Phosphatase (38-126) U/L Ammonia (9-33) umol/L Total Protein (6.3-8.3) g/dL Albumin (3.5-5.0) g/dL Globulin (2.2-3.9) gm/dL Albumin/Globulin Ratio (1.0-2.1) Venous Blood Potassium (3.6-5.2) mmol/L EMA 6 Profile Negative (NEGATIVE) Anti-Mitochondrial Ab (Negative) Anti-Smooth Muscle Ab (Negative) Lyme Disease Screen <0.90 index 07/19/17 Range/Units 10:03 WBC (4.8-10.8) K/uL RBC (4.40-5.90) Mil/uL Hgb (12.0-18.0) g/dL Hct (35.0-51.0) % MCV (80.0-94.0) fL MCH (27.0-31.0) pg MCHC (33.0-37.0) g/dL RDW (11.5-14.5) % Plt Count (130-400) K/uL MPV (7.2-11.7) fL Neut % (Auto) (50.0-75.0) % Lymph % (Auto) (20.0-40.0) % Weld % (Auto) (0.0-10.0) % Eos % (Auto) (0.0-4.0) % Baso % (Auto) (0.0-2.0) % Neut # (Auto) (1.8-7.0) K/uL Lymph # (Auto) (1.0-4.3) K/uL Weld # (Auto) (0.0-0.8) K/uL Eos # (Auto) (0.0-0.7) K/uL Baso # (Auto) (0.0-0.2) K/uL Neutrophils % (Manual) (50-75) % Lymphocytes % (Manual) (20-40) % Monocytes % (Manual) (0-10) % Eosinophils % (Manual) (0-4) % Platelet Estimate (NORMAL) Hypochromasia (manual) Poikilocytosis (manual Anisocytosis (manual) Target Cells Ovalocytes pCO2 (35-45) mm/Hg pO2 (30-55) mm/Hg HCO3 (21-28) mmol/L ABG pH (7.35-7.45) ABG Total CO2 (22-28) mmol/L ABG O2 Saturation (95-98) % ABG Base Excess (-2.0-3.0) mmol/L VBG pH (7.32-7.43) VBG pCO2 (40-60) mmHg VBG HCO3 mmol/L VBG Total CO2 (22-28) mmol/L VBG O2 Sat (Calc) (40-65) % VBG Base Excess (0.0-2.0) mmol/L VBG Potassium (3.6-5.2) mmol/L Glucose (75-110) mg/dl Lactate (0.7-2.1) mmol/L Sodium (132-148) mmol/L Potassium (3.6-5.2) mmol/L Chloride (98-107) mmol/L Carbon Dioxide (22-30) mmol/L Anion Gap (10-20) BUN (9-20) mg/dL Creatinine (0.8-1.5) mg/dL Est GFR ( Amer) Est GFR (Non-Af Amer) POC Glucose (mg/dL) (65-110) mg/dL Random Glucose (75-110) mg/dL Calcium (8.6-10.4) mg/dl Phosphorus (2.5-4.5) mg/dL Magnesium (1.6-2.3) mg/dL Total Bilirubin (0.2-1.3) mg/dL AST (17-59) U/L ALT (21-72) U/L Alkaline Phosphatase (38-126) U/L Ammonia (9-33) umol/L Total Protein (6.3-8.3) g/dL Albumin (3.5-5.0) g/dL Globulin (2.2-3.9) gm/dL Albumin/Globulin Ratio (1.0-2.1) Venous Blood Potassium (3.6-5.2) mmol/L EMA 6 Profile (NEGATIVE) Anti-Mitochondrial Ab Negative (Negative) Anti-Smooth Muscle Ab Negative (Negative) Lyme Disease Screen index Laboratory Results - last 24 hr 07/19/17 07/20/17 07/21/17 10:03 06:38 06:16 WBC RBC Hgb Hct MCV MCH MCHC RDW Plt Count MPV Neut % (Auto) Lymph % (Auto) Weld % (Auto) Eos % (Auto) Baso % (Auto) Neut # (Auto) Lymph # (Auto) Weld # (Auto) Eos # (Auto) Baso # (Auto) Neutrophils % (Manual) Lymphocytes % (Manual) Monocytes % (Manual) Eosinophils % (Manual) Platelet Estimate Hypochromasia (manual) Poikilocytosis (manual Anisocytosis (manual) Target Cells Ovalocytes pCO2 pO2 HCO3 ABG pH ABG Total CO2 ABG O2 Saturation ABG Base Excess VBG pH VBG pCO2 VBG HCO3 VBG Total CO2 VBG O2 Sat (Calc) VBG Base Excess VBG Potassium Glucose Lactate Sodium Potassium Chloride Carbon Dioxide Anion Gap BUN Creatinine Est GFR ( Amer) Est GFR (Non-Af Amer) POC Glucose (mg/dL) 351 H Random Glucose Calcium Phosphorus Magnesium Total Bilirubin AST ALT Alkaline Phosphatase Ammonia Total Protein Albumin Globulin Albumin/Globulin Ratio Venous Blood Potassium EMA 6 Profile Negative Anti-Mitochondrial Ab Negative Anti-Smooth Muscle Ab Negative Lyme Disease Screen 07/21/17 07/21/17 07/22/17 08:02 17:50 00:27 WBC RBC Hgb Hct MCV MCH MCHC RDW Plt Count MPV Neut % (Auto) Lymph % (Auto) Weld % (Auto) Eos % (Auto) Baso % (Auto) Neut # (Auto) Lymph # (Auto) Weld # (Auto) Eos # (Auto) Baso # (Auto) Neutrophils % (Manual) Lymphocytes % (Manual) Monocytes % (Manual) Eosinophils % (Manual) Platelet Estimate Hypochromasia (manual) Poikilocytosis (manual Anisocytosis (manual) Target Cells Ovalocytes pCO2 pO2 HCO3 ABG pH ABG Total CO2 ABG O2 Saturation ABG Base Excess VBG pH VBG pCO2 VBG HCO3 VBG Total CO2 VBG O2 Sat (Calc) VBG Base Excess VBG Potassium Glucose Lactate Sodium Potassium Chloride Carbon Dioxide Anion Gap BUN Creatinine Est GFR ( Amer) Est GFR (Non-Af Amer) POC Glucose (mg/dL) 283 H 363 H Random Glucose Calcium Phosphorus Magnesium Total Bilirubin AST ALT Alkaline Phosphatase Ammonia Total Protein Albumin Globulin Albumin/Globulin Ratio Venous Blood Potassium EMA 6 Profile Anti-Mitochondrial Ab Anti-Smooth Muscle Ab Lyme Disease Screen <0.90 07/22/17 07/22/17 07/22/17 06:16 07:47 07:47 WBC 14.3 H RBC 2.64 L Hgb 8.4 L Hct 25.1 L MCV 95.1 H MCH 31.9 H MCHC 33.5 RDW 16.7 H Plt Count 221 MPV 8.1 Neut % (Auto) 72.2 Lymph % (Auto) 9.9 L Weld % (Auto) 15.0 H Eos % (Auto) 2.7 Baso % (Auto) 0.2 Neut # (Auto) 10.3 H Lymph # (Auto) 1.4 Weld # (Auto) 2.1 H Eos # (Auto) 0.4 Baso # (Auto) 0.0 Neutrophils % (Manual) 78 H Lymphocytes % (Manual) 8 L Monocytes % (Manual) 13 H Eosinophils % (Manual) 1 Platelet Estimate Normal Hypochromasia (manual) Slight Poikilocytosis (manual Slight Anisocytosis (manual) Slight Target Cells Slight Ovalocytes Slight pCO2 pO2 HCO3 ABG pH ABG Total CO2 ABG O2 Saturation ABG Base Excess VBG pH VBG pCO2 VBG HCO3 VBG Total CO2 VBG O2 Sat (Calc) VBG Base Excess VBG Potassium Glucose Lactate Sodium 133 Potassium 3.5 L Chloride 93 L Carbon Dioxide 26 Anion Gap 17 BUN 54 H Creatinine 8.0 H* Est GFR ( Amer) 8 Est GFR (Non-Af Amer) 7 POC Glucose (mg/dL) 394 H Random Glucose 355 H Calcium 8.5 L Phosphorus 3.9 Magnesium 2.0 Total Bilirubin 0.7 AST 47 ALT 75 H Alkaline Phosphatase 212 H Ammonia Total Protein 6.1 L Albumin 3.0 L Globulin 3.2 Albumin/Globulin Ratio 0.9 L Venous Blood Potassium EMA 6 Profile Anti-Mitochondrial Ab Anti-Smooth Muscle Ab Lyme Disease Screen 07/22/17 07/22/17 07/22/17 07:47 07:49 11:33 WBC RBC Hgb Hct MCV MCH MCHC RDW Plt Count MPV Neut % (Auto) Lymph % (Auto) Weld % (Auto) Eos % (Auto) Baso % (Auto) Neut # (Auto) Lymph # (Auto) Weld # (Auto) Eos # (Auto) Baso # (Auto) Neutrophils % (Manual) Lymphocytes % (Manual) Monocytes % (Manual) Eosinophils % (Manual) Platelet Estimate Hypochromasia (manual) Poikilocytosis (manual Anisocytosis (manual) Target Cells Ovalocytes pCO2 52 H pO2 49 73 L HCO3 29.4 H ABG pH 7.39 ABG Total CO2 33.1 H ABG O2 Saturation 96.2 ABG Base Excess 5.8 H VBG pH 7.40 VBG pCO2 43 VBG HCO3 25.7 VBG Total CO2 27.9 VBG O2 Sat (Calc) 90.1 H VBG Base Excess 1.5 VBG Potassium 3.5 L Glucose 371 H Lactate 2.1 Sodium 133.0 Potassium Chloride 99.0 Carbon Dioxide Anion Gap BUN Creatinine Est GFR ( Amer) Est GFR (Non-Af Amer) POC Glucose (mg/dL) Random Glucose Calcium Phosphorus Magnesium Total Bilirubin AST ALT Alkaline Phosphatase Ammonia < 9 L Total Protein Albumin Globulin Albumin/Globulin Ratio Venous Blood Potassium 3.5 L EMA 6 Profile Anti-Mitochondrial Ab Anti-Smooth Muscle Ab Lyme Disease Screen 07/22/17 12:24 WBC RBC Hgb Hct MCV MCH MCHC RDW Plt Count MPV Neut % (Auto) Lymph % (Auto) Weld % (Auto) Eos % (Auto) Baso % (Auto) Neut # (Auto) Lymph # (Auto) Weld # (Auto) Eos # (Auto) Baso # (Auto) Neutrophils % (Manual) Lymphocytes % (Manual) Monocytes % (Manual) Eosinophils % (Manual) Platelet Estimate Hypochromasia (manual) Poikilocytosis (manual Anisocytosis (manual) Target Cells Ovalocytes pCO2 pO2 HCO3 ABG pH ABG Total CO2 ABG O2 Saturation ABG Base Excess VBG pH VBG pCO2 VBG HCO3 VBG Total CO2 VBG O2 Sat (Calc) VBG Base Excess VBG Potassium Glucose Lactate Sodium Potassium Chloride Carbon Dioxide Anion Gap BUN Creatinine Est GFR ( Amer) Est GFR (Non-Af Amer) POC Glucose (mg/dL) 228 H Random Glucose Calcium Phosphorus Magnesium Total Bilirubin AST ALT Alkaline Phosphatase Ammonia Total Protein Albumin Globulin Albumin/Globulin Ratio Venous Blood Potassium EMA 6 Profile Anti-Mitochondrial Ab Anti-Smooth Muscle Ab Lyme Disease Screen Fingerstick Blood Sugar Results: 394 Critical Care Progress Note - Nutrition Nutrition: Nutrition Category Date Time Status NPO Diet [DIET] Diets 07/20/17 Dinner Active Assessment/Plan - Assessment and Plan (Free Text) Assessment: This is a 76 year old male with HTN, DM, Hypercholesterimia, CAD, CABG with 5 vessel disease, ESRD on peritoneal dialysis, with symptomatic bradycardia s/p pacemaker placed [address] Valencia, hypothyroidism, who presented to the ED on 07/28 for dysphagia and slurred speech, was diagnosed with Yu's Palsy. Patient is with persistent AMS 2/2 Metabolic Encephalopathy. Plan for HD, s/p catheter placement 07/22/17. Plan: Neuro: A: Right Yu's Palsy Neurology: Dr. Thompson - on board Imaging: - Head CT: 1. Confluent area of low attenuation within the right frontal subcortical white matter suggestive for chronic ischemic change. 2. Scattered areas of chronic microvascular ischemic change. 3. Prominent ventricles. 4. No evidence of acute intracranial hemorrhage. If there is persistent concern for acute ischemic change, correlation with MRI is recommended. - Head/ Neck CTA: There is nonvisualization origin left vertebral artery. Left vertebral artery reconstitutes at approximately the lower C5 level and is seen on as a patent vessel to the level of the C2 segment where the vertebral artery is no longer visualized and appears to be occluded. Findings could represent sequela of atherosclerotic disease or dissection. Clinical correlation recommended. Right vertebral artery is patent throughout. The common carotid arteries, carotid bifurcations and internal carotid artery is widely patent. There is a calcified atherosclerotic plaque both cavernous carotid segments. The the at anterior middle and posterior cerebral arteries are patent. No evidence of large aneurysm nor vascular malformation. - Not able to have MRI - due to recent PPM placement - 07/[address]: No intracranial mass, hemorrhage or evidence of acute infarct. Right frontal encephalomalacia, possibly old MCA territory infarct. Small nonspecific right mastoid effusion. Chronic white matter ischemic change. Management: - Passed swallow eval: ASA 81mg, Plavix 75mg, Crestor 10mg, started on Keppra 500mg PO BID - R/O Yu's Palsy - Herpes type 1&2, EMA, lyme, & RPR - Was given Prednisone 60mg x 7 days, Valtrex [id number] x 7 days (renal dosed) A: Metabolic Encephalopathy Neurology consulted - Dr. 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 A: Hx CVA Cardio: A: HTN, CAD, CABG with 5 vessel disease, with symptomatic bradycardia s/p pacemaker placed [address] Valencia - Recent ECHO performed in Dr. Elizabeth's office as outpatient - ASA 81mg, Plavix 75mg, Coreg 12.5mg PO BID, Crestor 10mg Pulm: - Duonebs Endo: A: Hypothyroidism - Resumed Synthroid 50 mcg A: DM - Accuchecks - ISS - medium - A1C 8.4 - Will monitor as started on prednisone, expect hyperglycemia GI: A: Cirrhosis, etiology unclear Dr. Irvin consulted Renal: A: ESRD on peritoneal dialysis, family wants to HD. Nephrology consulted - Dr. Benson - Procrit Heme/Onc A: Anemia of Chronic Disease - Baseline hemoglobin 9s - Continue with Procrit ID: A: Sepsis 2/2 Otitis Media with right mastoid effusion? Mastoiditis? r/o Meningitis ID consulted - Dr. Gabe Villegas - Workup up ordered - Started on Merrem 500 Q12 (07/18) , Vanco 500mg Q48 (07/19), and Acyclovir 400mg Q12 (07/22) - Pending EEG Prophylaxis - Pepcid 2/2 to steroids - Heparin [id number] - Diet: Dysphagia Diet as per Speech Therapist - PT/OT DW with Tameka An, PGY-1 <Elliott Corral - Last Filed: 07/22/17 17:32> CCU Objective - Vital Signs / Intake & Output Intake and Output (Last 8hrs): Intake & Output 07/22/17 07/22/17 07/22/17 06:59 14:59 22:59 Intake Total 200 Balance 200 Intake: Intake, IV Amount 200 Left Antecubital 200 Oral 0 Other: # Voids Urine, Voided 0 # Bowel Movements 0 - Medications Active Medications: Active Medications Generic Name Dose Route Start Last Admin Trade Name Freq PRN Reason Stop Dose Admin Albuterol/Ipratropium 3 ml 07/13/17 14:00 07/22/17 08:08 Duoneb 3 Mg/0.5 Mg (3 Ml) Ud INH 3 ml RQ6 JAYLA Administration Artificial Tears 0 ml 07/13/17 22:00 07/14/17 17:35 Artificial Tears OD 1 drop Q3H PRN Administration Dry eyes Aspirin 81 mg 07/15/17 10:00 07/22/17 09:18 Aspirin Chewable PO 81 mg DAILY JAYLA Administration Calcium Acetate 667 mg 07/13/17 12:00 07/22/17 12:00 Phoslo PO Not Given TIDCC JAYLA Carvedilol 12.5 mg 07/22/17 10:00 07/22/17 09:18 Coreg PO 12.5 mg BID JAYLA Administration Clopidogrel Bisulfate 75 mg 07/15/17 10:00 07/22/17 09:18 Plavix PO 75 mg DAILY JAYLA Administration Epoetin Kumar 10,000 unit 07/16/17 09:00 07/21/17 09:58 Procrit SC 10,000 unit MWF JAYLA Administration Heparin Sodium (Porcine) 5,000 units 07/13/17 22:00 07/22/17 09:18 Heparin SC 5,000 units Q12H JAYLA Administration Meropenem 500 mg/ Sodium 100 mls @ 100 mls/hr 07/18/17 23:30 07/22/17 12:52 Chloride IVPB 100 mls/hr Q12H JAYLA Administration Protocol Vancomycin HCl 500 mg/ Sodium 100 mls @ 100 mls/hr 07/19/17 01:00 07/21/17 00 :54 Chloride IVPB 100 mls/hr Q48H JAYLA Administration Protocol Acyclovir 200 mg/ Sodium 100 mls @ 100 mls/hr 07/22/17 13:00 07/22/17 13:50 Chloride IV 100 mls/hr Q12H JAYLA Administration Protocol Insulin Human Regular 0 unit 07/15/17 07:32 07/22/17 12:52 Novolin R SC 4 unit Q6 JAYLA Administration Protocol Levetiracetam 500 mg 07/21/17 22:00 07/22/17 09:26 Keppra PO 500 mg BID JAYLA Administration Levothyroxine Sodium 50 mcg 07/14/17 06:30 07/22/17 06:14 Synthroid PO 50 mcg DAILY@0630 JAYLA Administration Vitamin A 1 ea 07/19/17 18:00 07/22/17 09:17 Vitamin A & D Oint Ud Foilpak TOP 1 ea BID JAYLA Administration - Patient Studies Lab Studies: Microbiology Studies 07/18/17 11:10 Blood Culture - Preliminary Blood NO GROWTH AFTER 4 DAYS Lab Studies 07/22/17 07/22/17 07/22/17 Range/Units 12:24 11:33 07:49 WBC (4.8-10.8) K/uL RBC (4.40-5.90) Mil/uL Hgb (12.0-18.0) g/dL Hct (35.0-51.0) % MCV (80.0-94.0) fL MCH (27.0-31.0) pg MCHC (33.0-37.0) g/dL RDW (11.5-14.5) % Plt Count (130-400) K/uL MPV (7.2-11.7) fL Neut % (Auto) (50.0-75.0) % Lymph % (Auto) (20.0-40.0) % Weld % (Auto) (0.0-10.0) % Eos % (Auto) (0.0-4.0) % Baso % (Auto) (0.0-2.0) % Neut # (Auto) (1.8-7.0) K/uL Lymph # (Auto) (1.0-4.3) K/uL Weld # (Auto) (0.0-0.8) K/uL Eos # (Auto) (0.0-0.7) K/uL Baso # (Auto) (0.0-0.2) K/uL Neutrophils % (Manual) (50-75) % Lymphocytes % (Manual) (20-40) % Monocytes % (Manual) (0-10) % Eosinophils % (Manual) (0-4) % Platelet Estimate (NORMAL) Hypochromasia (manual) Poikilocytosis (manual Anisocytosis (manual) Target Cells Ovalocytes pCO2 52 H (35-45) mm/Hg pO2 73 L 49 (30-55) mm/Hg HCO3 29.4 H (21-28) mmol/L ABG pH 7.39 (7.35-7.45) ABG Total CO2 33.1 H (22-28) mmol/L ABG O2 Saturation 96.2 (95-98) % ABG Base Excess 5.8 H (-2.0-3.0) mmol/L VBG pH 7.40 (7.32-7.43) VBG pCO2 43 (40-60) mmHg VBG HCO3 25.7 mmol/L VBG Total CO2 27.9 (22-28) mmol/L VBG O2 Sat (Calc) 90.1 H (40-65) % VBG Base Excess 1.5 (0.0-2.0) mmol/L VBG Potassium 3.5 L (3.6-5.2) mmol/L Glucose 371 H (75-110) mg/dl Lactate 2.1 (0.7-2.1) mmol/L Sodium 133.0 (132-148) mmol/L Potassium (3.6-5.2) mmol/L Chloride 99.0 (98-107) mmol/L Carbon Dioxide (22-30) mmol/L Anion Gap (10-20) BUN (9-20) mg/dL Creatinine (0.8-1.5) mg/dL Est GFR ( Amer) Est GFR (Non-Af Amer) POC Glucose (mg/dL) 228 H (65-110) mg/dL Random Glucose (75-110) mg/dL Calcium (8.6-10.4) mg/dl Phosphorus (2.5-4.5) mg/dL Magnesium (1.6-2.3) mg/dL Total Bilirubin (0.2-1.3) mg/dL AST (17-59) U/L ALT (21-72) U/L Alkaline Phosphatase (38-126) U/L Ammonia (9-33) umol/L Total Protein (6.3-8.3) g/dL Albumin (3.5-5.0) g/dL Globulin (2.2-3.9) gm/dL Albumin/Globulin Ratio (1.0-2.1) Venous Blood Potassium 3.5 L (3.6-5.2) mmol/L Tot Complement (CH50) (31-60) U/mL Lyme Disease Screen index Lyme Disease IgG Ab (IFA) (NEGATIVE) Lyme Disease IgM Ab (NEGATIVE) West Nile Virus IgG Ab West Nile Virus IgM Ab 07/22/17 07/22/17 07/22/17 Range/Units 07:47 07:47 07:47 WBC 14.3 H (4.8-10.8) K/uL RBC 2.64 L (4.40-5.90) Mil/uL Hgb 8.4 L (12.0-18.0) g/dL Hct 25.1 L (35.0-51.0) % MCV 95.1 H (80.0-94.0) fL MCH 31.9 H (27.0-31.0) pg MCHC 33.5 (33.0-37.0) g/dL RDW 16.7 H (11.5-14.5) % Plt Count 221 (130-400) K/uL MPV 8.1 (7.2-11.7) fL Neut % (Auto) 72.2 (50.0-75.0) % Lymph % (Auto) 9.9 L (20.0-40.0) % Weld % (Auto) 15.0 H (0.0-10.0) % Eos % (Auto) 2.7 (0.0-4.0) % Baso % (Auto) 0.2 (0.0-2.0) % Neut # (Auto) 10.3 H (1.8-7.0) K/uL Lymph # (Auto) 1.4 (1.0-4.3) K/uL Weld # (Auto) 2.1 H (0.0-0.8) K/uL Eos # (Auto) 0.4 (0.0-0.7) K/uL Baso # (Auto) 0.0 (0.0-0.2) K/uL Neutrophils % (Manual) 78 H (50-75) % Lymphocytes % (Manual) 8 L (20-40) % Monocytes % (Manual) 13 H (0-10) % Eosinophils % (Manual) 1 (0-4) % Platelet Estimate Normal (NORMAL) Hypochromasia (manual) Slight Poikilocytosis (manual Slight Anisocytosis (manual) Slight Target Cells Slight Ovalocytes Slight pCO2 (35-45) mm/Hg pO2 (30-55) mm/Hg HCO3 (21-28) mmol/L ABG pH (7.35-7.45) ABG Total CO2 (22-28) mmol/L ABG O2 Saturation (95-98) % ABG Base Excess (-2.0-3.0) mmol/L VBG pH (7.32-7.43) VBG pCO2 (40-60) mmHg VBG HCO3 mmol/L VBG Total CO2 (22-28) mmol/L VBG O2 Sat (Calc) (40-65) % VBG Base Excess (0.0-2.0) mmol/L VBG Potassium (3.6-5.2) mmol/L Glucose (75-110) mg/dl Lactate (0.7-2.1) mmol/L Sodium 133 (132-148) mmol/L Potassium 3.5 L (3.6-5.2) mmol/L Chloride 93 L (98-107) mmol/L Carbon Dioxide 26 (22-30) mmol/L Anion Gap 17 (10-20) BUN 54 H (9-20) mg/dL Creatinine 8.0 H* (0.8-1.5) mg/dL Est GFR ( Amer) 8 Est GFR (Non-Af Amer) 7 POC Glucose (mg/dL) (65-110) mg/dL Random Glucose 355 H (75-110) mg/dL Calcium 8.5 L (8.6-10.4) mg/dl Phosphorus 3.9 (2.5-4.5) mg/dL Magnesium 2.0 (1.6-2.3) mg/dL Total Bilirubin 0.7 (0.2-1.3) mg/dL AST 47 (17-59) U/L ALT 75 H (21-72) U/L Alkaline Phosphatase 212 H (38-126) U/L Ammonia < 9 L (9-33) umol/L Total Protein 6.1 L (6.3-8.3) g/dL Albumin 3.0 L (3.5-5.0) g/dL Globulin 3.2 (2.2-3.9) gm/dL Albumin/Globulin Ratio 0.9 L (1.0-2.1) Venous Blood Potassium (3.6-5.2) mmol/L Tot Complement (CH50) (31-60) U/mL Lyme Disease Screen index Lyme Disease IgG Ab (IFA) (NEGATIVE) Lyme Disease IgM Ab (NEGATIVE) West Nile Virus IgG Ab West Nile Virus IgM Ab 07/22/17 07/22/17 07/21/17 Range/Units 06:16 00:27 17:50 WBC (4.8-10.8) K/uL RBC (4.40-5.90) Mil/uL Hgb (12.0-18.0) g/dL Hct (35.0-51.0) % MCV (80.0-94.0) fL MCH (27.0-31.0) pg MCHC (33.0-37.0) g/dL RDW (11.5-14.5) % Plt Count (130-400) K/uL MPV (7.2-11.7) fL Neut % (Auto) (50.0-75.0) % Lymph % (Auto) (20.0-40.0) % Weld % (Auto) (0.0-10.0) % Eos % (Auto) (0.0-4.0) % Baso % (Auto) (0.0-2.0) % Neut # (Auto) (1.8-7.0) K/uL Lymph # (Auto) (1.0-4.3) K/uL Weld # (Auto) (0.0-0.8) K/uL Eos # (Auto) (0.0-0.7) K/uL Baso # (Auto) (0.0-0.2) K/uL Neutrophils % (Manual) (50-75) % Lymphocytes % (Manual) (20-40) % Monocytes % (Manual) (0-10) % Eosinophils % (Manual) (0-4) % Platelet Estimate (NORMAL) Hypochromasia (manual) Poikilocytosis (manual Anisocytosis (manual) Target Cells Ovalocytes pCO2 (35-45) mm/Hg pO2 (30-55) mm/Hg HCO3 (21-28) mmol/L ABG pH (7.35-7.45) ABG Total CO2 (22-28) mmol/L ABG O2 Saturation (95-98) % ABG Base Excess (-2.0-3.0) mmol/L VBG pH (7.32-7.43) VBG pCO2 (40-60) mmHg VBG HCO3 mmol/L VBG Total CO2 (22-28) mmol/L VBG O2 Sat (Calc) (40-65) % VBG Base Excess (0.0-2.0) mmol/L VBG Potassium (3.6-5.2) mmol/L Glucose (75-110) mg/dl Lactate (0.7-2.1) mmol/L Sodium (132-148) mmol/L Potassium (3.6-5.2) mmol/L Chloride (98-107) mmol/L Carbon Dioxide (22-30) mmol/L Anion Gap (10-20) BUN (9-20) mg/dL Creatinine (0.8-1.5) mg/dL Est GFR ( Amer) Est GFR (Non-Af Amer) POC Glucose (mg/dL) 394 H 363 H 283 H (65-110) mg/dL Random Glucose (75-110) mg/dL Calcium (8.6-10.4) mg/dl Phosphorus (2.5-4.5) mg/dL Magnesium (1.6-2.3) mg/dL Total Bilirubin (0.2-1.3) mg/dL AST (17-59) U/L ALT (21-72) U/L Alkaline Phosphatase (38-126) U/L Ammonia (9-33) umol/L Total Protein (6.3-8.3) g/dL Albumin (3.5-5.0) g/dL Globulin (2.2-3.9) gm/dL Albumin/Globulin Ratio (1.0-2.1) Venous Blood Potassium (3.6-5.2) mmol/L Tot Complement (CH50) (31-60) U/mL Lyme Disease Screen index Lyme Disease IgG Ab (IFA) (NEGATIVE) Lyme Disease IgM Ab (NEGATIVE) West Nile Virus IgG Ab West Nile Virus IgM Ab 07/21/17 07/21/17 07/21/17 Range/Units 08:02 08:02 06:16 WBC (4.8-10.8) K/uL RBC (4.40-5.90) Mil/uL Hgb (12.0-18.0) g/dL Hct (35.0-51.0) % MCV (80.0-94.0) fL MCH (27.0-31.0) pg MCHC (33.0-37.0) g/dL RDW (11.5-14.5) % Plt Count (130-400) K/uL MPV (7.2-11.7) fL Neut % (Auto) (50.0-75.0) % Lymph % (Auto) (20.0-40.0) % Weld % (Auto) (0.0-10.0) % Eos % (Auto) (0.0-4.0) % Baso % (Auto) (0.0-2.0) % Neut # (Auto) (1.8-7.0) K/uL Lymph # (Auto) (1.0-4.3) K/uL Weld # (Auto) (0.0-0.8) K/uL Eos # (Auto) (0.0-0.7) K/uL Baso # (Auto) (0.0-0.2) K/uL Neutrophils % (Manual) (50-75) % Lymphocytes % (Manual) (20-40) % Monocytes % (Manual) (0-10) % Eosinophils % (Manual) (0-4) % Platelet Estimate (NORMAL) Hypochromasia (manual) Poikilocytosis (manual Anisocytosis (manual) Target Cells Ovalocytes pCO2 (35-45) mm/Hg pO2 (30-55) mm/Hg HCO3 (21-28) mmol/L ABG pH (7.35-7.45) ABG Total CO2 (22-28) mmol/L ABG O2 Saturation (95-98) % ABG Base Excess (-2.0-3.0) mmol/L VBG pH (7.32-7.43) VBG pCO2 (40-60) mmHg VBG HCO3 mmol/L VBG Total CO2 (22-28) mmol/L VBG O2 Sat (Calc) (40-65) % VBG Base Excess (0.0-2.0) mmol/L VBG Potassium (3.6-5.2) mmol/L Glucose (75-110) mg/dl Lactate (0.7-2.1) mmol/L Sodium (132-148) mmol/L Potassium (3.6-5.2) mmol/L Chloride (98-107) mmol/L Carbon Dioxide (22-30) mmol/L Anion Gap (10-20) BUN (9-20) mg/dL Creatinine (0.8-1.5) mg/dL Est GFR ( Amer) Est GFR (Non-Af Amer) POC Glucose (mg/dL) 351 H (65-110) mg/dL Random Glucose (75-110) mg/dL Calcium (8.6-10.4) mg/dl Phosphorus (2.5-4.5) mg/dL Magnesium (1.6-2.3) mg/dL Total Bilirubin (0.2-1.3) mg/dL AST (17-59) U/L ALT (21-72) U/L Alkaline Phosphatase (38-126) U/L Ammonia (9-33) umol/L Total Protein (6.3-8.3) g/dL Albumin (3.5-5.0) g/dL Globulin (2.2-3.9) gm/dL Albumin/Globulin Ratio (1.0-2.1) Venous Blood Potassium (3.6-5.2) mmol/L Tot Complement (CH50) (31-60) U/mL Lyme Disease Screen <0.90 index Lyme Disease IgG Ab (IFA) Negative (NEGATIVE) Lyme Disease IgM Ab Negative (NEGATIVE) West Nile Virus IgG Ab West Nile Virus IgM Ab 07/20/17 07/19/17 Range/Units 06:38 08:31 WBC (4.8-10.8) K/uL RBC (4.40-5.90) Mil/uL Hgb (12.0-18.0) g/dL Hct (35.0-51.0) % MCV (80.0-94.0) fL MCH (27.0-31.0) pg MCHC (33.0-37.0) g/dL RDW (11.5-14.5) % Plt Count (130-400) K/uL MPV (7.2-11.7) fL Neut % (Auto) (50.0-75.0) % Lymph % (Auto) (20.0-40.0) % Weld % (Auto) (0.0-10.0) % Eos % (Auto) (0.0-4.0) % Baso % (Auto) (0.0-2.0) % Neut # (Auto) (1.8-7.0) K/uL Lymph # (Auto) (1.0-4.3) K/uL Weld # (Auto) (0.0-0.8) K/uL Eos # (Auto) (0.0-0.7) K/uL Baso # (Auto) (0.0-0.2) K/uL Neutrophils % (Manual) (50-75) % Lymphocytes % (Manual) (20-40) % Monocytes % (Manual) (0-10) % Eosinophils % (Manual) (0-4) % Platelet Estimate (NORMAL) Hypochromasia (manual) Poikilocytosis (manual Anisocytosis (manual) Target Cells Ovalocytes pCO2 (35-45) mm/Hg pO2 (30-55) mm/Hg HCO3 (21-28) mmol/L ABG pH (7.35-7.45) ABG Total CO2 (22-28) mmol/L ABG O2 Saturation (95-98) % ABG Base Excess (-2.0-3.0) mmol/L VBG pH (7.32-7.43) VBG pCO2 (40-60) mmHg VBG HCO3 mmol/L VBG Total CO2 (22-28) mmol/L VBG O2 Sat (Calc) (40-65) % VBG Base Excess (0.0-2.0) mmol/L VBG Potassium (3.6-5.2) mmol/L Glucose (75-110) mg/dl Lactate (0.7-2.1) mmol/L Sodium (132-148) mmol/L Potassium (3.6-5.2) mmol/L Chloride (98-107) mmol/L Carbon Dioxide (22-30) mmol/L Anion Gap (10-20) BUN (9-20) mg/dL Creatinine (0.8-1.5) mg/dL Est GFR ( Amer) Est GFR (Non-Af Amer) POC Glucose (mg/dL) (65-110) mg/dL Random Glucose (75-110) mg/dL Calcium (8.6-10.4) mg/dl Phosphorus (2.5-4.5) mg/dL Magnesium (1.6-2.3) mg/dL Total Bilirubin (0.2-1.3) mg/dL AST (17-59) U/L ALT (21-72) U/L Alkaline Phosphatase (38-126) U/L Ammonia (9-33) umol/L Total Protein (6.3-8.3) g/dL Albumin (3.5-5.0) g/dL Globulin (2.2-3.9) gm/dL Albumin/Globulin Ratio (1.0-2.1) Venous Blood Potassium (3.6-5.2) mmol/L Tot Complement (CH50) >60 H (31-60) U/mL Lyme Disease Screen index Lyme Disease IgG Ab (IFA) (NEGATIVE) Lyme Disease IgM Ab (NEGATIVE) West Nile Virus IgG Ab 2.38 H West Nile Virus IgM Ab 0.01 Laboratory Results - last 24 hr 07/19/17 07/20/17 07/21/17 08:31 06:38 06:16 WBC RBC Hgb Hct MCV MCH MCHC RDW Plt Count MPV Neut % (Auto) Lymph % (Auto) Weld % (Auto) Eos % (Auto) Baso % (Auto) Neut # (Auto) Lymph # (Auto) Weld # (Auto) Eos # (Auto) Baso # (Auto) Neutrophils % (Manual) Lymphocytes % (Manual) Monocytes % (Manual) Eosinophils % (Manual) Platelet Estimate Hypochromasia (manual) Poikilocytosis (manual Anisocytosis (manual) Target Cells Ovalocytes pCO2 pO2 HCO3 ABG pH ABG Total CO2 ABG O2 Saturation ABG Base Excess VBG pH VBG pCO2 VBG HCO3 VBG Total CO2 VBG O2 Sat (Calc) VBG Base Excess VBG Potassium Glucose Lactate Sodium Potassium Chloride Carbon Dioxide Anion Gap BUN Creatinine Est GFR ( Amer) Est GFR (Non-Af Amer) POC Glucose (mg/dL) 351 H Random Glucose Calcium Phosphorus Magnesium Total Bilirubin AST ALT Alkaline Phosphatase Ammonia Total Protein Albumin Globulin Albumin/Globulin Ratio Venous Blood Potassium Tot Complement (CH50) >60 H Lyme Disease Screen Lyme Disease IgG Ab (IFA) Lyme Disease IgM Ab West Nile Virus IgG Ab 2.38 H West Nile Virus IgM Ab 0.01 07/21/17 07/21/17 07/21/17 08:02 08:02 17:50 WBC RBC Hgb Hct MCV MCH MCHC RDW Plt Count MPV Neut % (Auto) Lymph % (Auto) Weld % (Auto) Eos % (Auto) Baso % (Auto) Neut # (Auto) Lymph # (Auto) Weld # (Auto) Eos # (Auto) Baso # (Auto) Neutrophils % (Manual) Lymphocytes % (Manual) Monocytes % (Manual) Eosinophils % (Manual) Platelet Estimate Hypochromasia (manual) Poikilocytosis (manual Anisocytosis (manual) Target Cells Ovalocytes pCO2 pO2 HCO3 ABG pH ABG Total CO2 ABG O2 Saturation ABG Base Excess VBG pH VBG pCO2 VBG HCO3 VBG Total CO2 VBG O2 Sat (Calc) VBG Base Excess VBG Potassium Glucose Lactate Sodium Potassium Chloride Carbon Dioxide Anion Gap BUN Creatinine Est GFR ( Amer) Est GFR (Non-Af Amer) POC Glucose (mg/dL) 283 H Random Glucose Calcium Phosphorus Magnesium Total Bilirubin AST ALT Alkaline Phosphatase Ammonia Total Protein Albumin Globulin Albumin/Globulin Ratio Venous Blood Potassium Tot Complement (CH50) Lyme Disease Screen <0.90 Lyme Disease IgG Ab (IFA) Negative Lyme Disease IgM Ab Negative West Nile Virus IgG Ab West Nile Virus IgM Ab 07/22/17 07/22/17 07/22/17 00:27 06:16 07:47 WBC 14.3 H RBC 2.64 L Hgb 8.4 L Hct 25.1 L MCV 95.1 H MCH 31.9 H MCHC 33.5 RDW 16.7 H Plt Count 221 MPV 8.1 Neut % (Auto) 72.2 Lymph % (Auto) 9.9 L Weld % (Auto) 15.0 H Eos % (Auto) 2.7 Baso % (Auto) 0.2 Neut # (Auto) 10.3 H Lymph # (Auto) 1.4 Weld # (Auto) 2.1 H Eos # (Auto) 0.4 Baso # (Auto) 0.0 Neutrophils % (Manual) 78 H Lymphocytes % (Manual) 8 L Monocytes % (Manual) 13 H Eosinophils % (Manual) 1 Platelet Estimate Normal Hypochromasia (manual) Slight Poikilocytosis (manual Slight Anisocytosis (manual) Slight Target Cells Slight Ovalocytes Slight pCO2 pO2 HCO3 ABG pH ABG Total CO2 ABG O2 Saturation ABG Base Excess VBG pH VBG pCO2 VBG HCO3 VBG Total CO2 VBG O2 Sat (Calc) VBG Base Excess VBG Potassium Glucose Lactate Sodium Potassium Chloride Carbon Dioxide Anion Gap BUN Creatinine Est GFR ( Amer) Est GFR (Non-Af Amer) POC Glucose (mg/dL) 363 H 394 H Random Glucose Calcium Phosphorus Magnesium Total Bilirubin AST ALT Alkaline Phosphatase Ammonia Total Protein Albumin Globulin Albumin/Globulin Ratio Venous Blood Potassium Tot Complement (CH50) Lyme Disease Screen Lyme Disease IgG Ab (IFA) Lyme Disease IgM Ab West Nile Virus IgG Ab West Nile Virus IgM Ab 07/22/17 07/22/17 07/22/17 07:47 07:47 07:49 WBC RBC Hgb Hct MCV MCH MCHC RDW Plt Count MPV Neut % (Auto) Lymph % (Auto) Weld % (Auto) Eos % (Auto) Baso % (Auto) Neut # (Auto) Lymph # (Auto) Weld # (Auto) Eos # (Auto) Baso # (Auto) Neutrophils % (Manual) Lymphocytes % (Manual) Monocytes % (Manual) Eosinophils % (Manual) Platelet Estimate Hypochromasia (manual) Poikilocytosis (manual Anisocytosis (manual) Target Cells Ovalocytes pCO2 pO2 49 HCO3 ABG pH ABG Total CO2 ABG O2 Saturation ABG Base Excess VBG pH 7.40 VBG pCO2 43 VBG HCO3 25.7 VBG Total CO2 27.9 VBG O2 Sat (Calc) 90.1 H VBG Base Excess 1.5 VBG Potassium 3.5 L Glucose 371 H Lactate 2.1 Sodium 133 133.0 Potassium 3.5 L Chloride 93 L 99.0 Carbon Dioxide 26 Anion Gap 17 BUN 54 H Creatinine 8.0 H* Est GFR ( Amer) 8 Est GFR (Non-Af Amer) 7 POC Glucose (mg/dL) Random Glucose 355 H Calcium 8.5 L Phosphorus 3.9 Magnesium 2.0 Total Bilirubin 0.7 AST 47 ALT 75 H Alkaline Phosphatase 212 H Ammonia < 9 L Total Protein 6.1 L Albumin 3.0 L Globulin 3.2 Albumin/Globulin Ratio 0.9 L Venous Blood Potassium 3.5 L Tot Complement (CH50) Lyme Disease Screen Lyme Disease IgG Ab (IFA) Lyme Disease IgM Ab West Nile Virus IgG Ab West Nile Virus IgM Ab 07/22/17 07/22/17 11:33 12:24 WBC RBC Hgb Hct MCV MCH MCHC RDW Plt Count MPV Neut % (Auto) Lymph % (Auto) Weld % (Auto) Eos % (Auto) Baso % (Auto) Neut # (Auto) Lymph # (Auto) Weld # (Auto) Eos # (Auto) Baso # (Auto) Neutrophils % (Manual) Lymphocytes % (Manual) Monocytes % (Manual) Eosinophils % (Manual) Platelet Estimate Hypochromasia (manual) Poikilocytosis (manual Anisocytosis (manual) Target Cells Ovalocytes pCO2 52 H pO2 73 L HCO3 29.4 H ABG pH 7.39 ABG Total CO2 33.1 H ABG O2 Saturation 96.2 ABG Base Excess 5.8 H VBG pH VBG pCO2 VBG HCO3 VBG Total CO2 VBG O2 Sat (Calc) VBG Base Excess VBG Potassium Glucose Lactate Sodium Potassium Chloride Carbon Dioxide Anion Gap BUN Creatinine Est GFR ( Amer) Est GFR (Non-Af Amer) POC Glucose (mg/dL) 228 H Random Glucose Calcium Phosphorus Magnesium Total Bilirubin AST ALT Alkaline Phosphatase Ammonia Total Protein Albumin Globulin Albumin/Globulin Ratio Venous Blood Potassium Tot Complement (CH50) Lyme Disease Screen Lyme Disease IgG Ab (IFA) Lyme Disease IgM Ab West Nile Virus IgG Ab West Nile Virus IgM Ab Critical Care Progress Note - Nutrition Nutrition: Nutrition Category Date Time Status NPO Diet [DIET] Diets 07/20/17 Dinner Active Attending/Attestation - Attestation I have personally seen and examined this patient.: Yes I have fully participated in the care of the patient.: Yes I have reviewed all pertinent clinical information: Yes Notes (Text): 07/22/17 17:26 Today: Saturday, July 22, 2017 Pulmonary, Covering Dr Acevedo The Patient was seen and examined at the bedside, Medical records reviewed, and management issues were discussed and formulated with the house staff. I have reviewed all the relevant clinical, laboratory, hemodynamic, radiographic data and medications Events reviewed Pain issues, skin care, head of the bed elevation, glycemic control were addressed. Agree with above resident's assessment and treatment plans of care as transcribed in Dr. Chin note. Critically ill patient with acute respiratory failure with Hypercrbia, Respiratory and metabolic acidosis from acute severe sepsis, renal failure and acute stroke HD access place and he is receiving HD now Continue Antibiotics # Stress Ulcer prophylaxis # DVT prophylaxis with SCD, SQ Heparin # Code Status: Full code Total critical care time 45 minutes
[2017-07-22] MEDS: Meropenem 500 MG in Sodium Chloride 0.9% 100 ML IVPB SCH ×2 (12:52→22:30)
[2017-07-22] MEDS ORDERED: Heparin 1,000 UNITS in Sodium Chloride 0.9% 9 ML IVP ONE (15:00)
[2017-07-22 15:21] LABS: WNV AB IGM 0.01
--- NOTE | 2017-07-22 15:24 | PCM.PROC ---
Procedures Attestation:: I certify that I have explained the specified Operation(s) or Procedure(s), risks, benefits and reasonable alternatives to the Patient and/or other person responsible. The opportunity was given to ask questions and all questions answered - Central Line Placement Right Subclavian Hemodialysis Access Aseptic technique was employed throughout the procedure: Hand Hygiene done prior to procedure, Full sterile barriers (mask, hair cover, sterile gown, sterile gloves), Full body sterile drape, Chloraprep Antiseptic: 30 second prep for IJ or SC sites CVP Time Out Performed: Yes Pt. Placed on Pulse Ox Monitor: Yes Central Line Prep: Chlorhexidine-Alcohol Combination Local Anesthesia Used: Lidocaine 1% Ultrasound Used for Placement: Yes Central Line Lumen Inserted: double Central Line Length: 16 cm Post Procedure: Sutured in Place, Good Blood Return, All Ports Aspirated, Flushed, Capped, Sterile Dressing Applied Secured by: Suture Post procedure dressing: Chlorhexidine disc (Biopatch) Post Procedure X-Ray: Yes Patient Tolerated Procedure: Well Immediate Complications: None
--- NOTE | 2017-07-22 15:28 | CP.PCM.CON ---
History of Present Illness - History of Present Illness History of Present Illness: Vascular Surgery Consult Note for Dr. Davis This is a 77M with a PMH of DM, HTN, Hypothyroid, CAD s/p CABG, and esrd on peritoneal dialysis. The vascualr service was consulted today for hemodyalisis access due to inapropriate therapic peritoneal dialysis. Patient is currently none verbal. The son was as bedside to give PMH and provide proceedural consent. PMH: HTN, DM, CAD, ESRD PSH: CABG, Peritonea Dialysis catheter placement ALL: NKDA Review of Systems - Review of Systems Systems not reviewed;Unavailable: Acuity of Condition Past Patient History - Past Medical History & Family History Past Medical History?: Yes - Past Social History Smoking Status: Never Smoked - CARDIAC Hx Hypercholesterolemia: Yes Hx Hypertension: Yes - HEENT Hx HEENT Problems: Yes Hx Cataracts: Yes - RENAL Hx Chronic Kidney Disease: Yes (STAGE 4) - ENDOCRINE/METABOLIC Hx Hypothyroidism: Yes - MUSCULOSKELETAL/RHEUMATOLOGICAL Hx Fractures: Yes (CASTED NO OR) - GENITOURINARY/GYNECOLOGICAL Hx Genitourinary Disorders: Yes Hx Prostate Problems: Yes (BPH) Other/Comment: URINARY RETENTION - PSYCHIATRIC Hx Substance Use: No - SURGICAL HISTORY Hx Coronary Artery Bypass Graft: Yes - ANESTHESIA Hx Anesthesia: Yes Hx Anesthesia Reactions: No Hx Malignant Hyperthermia: No Meds Allergies/Adverse Reactions: Allergies Allergy/AdvReac Type Severity Reaction Status Date / Time No Known Allergies Allergy Verified 07/13/17 10:22 - Medications Medications: Current Medications Albuterol/Ipratropium (Duoneb 3 Mg/0.5 Mg (3 Ml) Ud) 3 ml INH RQ6 [facility] Last Admin: 07/22/17 08:08 Dose: 3 ml Artificial Tears (Artificial Tears) 0 ml OD Q3H PRN PRN Reason: Dry eyes Last Admin: 07/14/17 17:35 Dose: 1 drop Aspirin (Aspirin Chewable) 81 mg PO DAILY [facility] Last Admin: 07/22/17 09:18 Dose: 81 mg Calcium Acetate (Phoslo) 667 mg PO TIDCC [facility] Last Admin: 07/22/17 12:00 Dose: Not Given Carvedilol (Coreg) 12.5 mg PO BID [facility] Last Admin: 07/22/17 09:18 Dose: 12.5 mg Clopidogrel Bisulfate (Plavix) 75 mg PO DAILY [facility] Last Admin: 07/22/17 09:18 Dose: 75 mg Epoetin Kumar (Procrit) 10,000 unit SC MWF [facility] Last Admin: 07/21/17 09:58 Dose: 10,000 unit Heparin Sodium (Porcine) (Heparin) 5,000 units SC Q12H [facility] Last Admin: 07/22/17 09:18 Dose: 5,000 units Meropenem 500 mg/ Sodium (Chloride) 100 mls @ 100 mls/hr IVPB Q12H [facility] PRN Reason: Protocol Last Admin: 07/22/17 12:52 Dose: 100 mls/hr Vancomycin HCl 500 mg/ Sodium (Chloride) 100 mls @ 100 mls/hr IVPB Q48H [facility] PRN Reason: Protocol Last Admin: 07/21/17 00:54 Dose: 100 mls/hr Acyclovir 200 mg/ Sodium (Chloride) 100 mls @ 100 mls/hr IV Q12H [facility] PRN Reason: Protocol Last Admin: 07/22/17 13:50 Dose: 100 mls/hr Insulin Human Regular (Novolin R) 0 unit SC Q6 [facility] PRN Reason: Protocol Last Admin: 07/22/17 12:52 Dose: 4 unit Levetiracetam (Keppra) 500 mg PO BID [facility] Last Admin: 07/22/17 09:26 Dose: 500 mg Levothyroxine Sodium (Synthroid) 50 mcg PO DAILY@0630 [facility] Last Admin: 07/22/17 06:14 Dose: 50 mcg Vitamin A (Vitamin A & D Oint Ud Foilpak) 1 ea TOP BID [facility] Last Admin: 07/22/17 09:17 Dose: 1 ea Physical Exam - Head Exam Head Exam: ATRAUMATIC, NORMOCEPHALIC - ENT Exam ENT Exam: Mucous Membranes Moist - Respiratory Exam Respiratory Exam: NORMAL BREATHING PATTERN - Cardiovascular Exam Cardiovascular Exam: +S1, +S2 - GI/Abdominal Exam GI & Abdominal Exam: absent: Distended, Firm - Extremities Exam Extremities exam: Positive for: normal inspection Results - Vital Signs Recent Vital Signs: Last Vital Signs Temp 98.6 F 07/22/17 12:00 Pulse 82 07/22/17 12:00 Resp 26 H 07/22/17 12:00 BP 129/61 07/22/17 12:00 Pulse Ox 99 07/22/17 12:00 - Labs Result Diagrams: 07/22/17 07:47 07/22/17 07:47 Labs: Laboratory Results - last 24 hr 07/20/17 07/21/17 07/21/17 06:38 06:16 08:02 WBC RBC Hgb Hct MCV MCH MCHC RDW Plt Count MPV Neut % (Auto) Lymph % (Auto) Ada % (Auto) Eos % (Auto) Baso % (Auto) Neut # (Auto) Lymph # (Auto) Ada # (Auto) Eos # (Auto) Baso # (Auto) Neutrophils % (Manual) Lymphocytes % (Manual) Monocytes % (Manual) Eosinophils % (Manual) Platelet Estimate Hypochromasia (manual) Poikilocytosis (manual Anisocytosis (manual) Target Cells Ovalocytes pCO2 pO2 HCO3 ABG pH ABG Total CO2 ABG O2 Saturation ABG Base Excess VBG pH VBG pCO2 VBG HCO3 VBG Total CO2 VBG O2 Sat (Calc) VBG Base Excess VBG Potassium Glucose Lactate Sodium Potassium Chloride Carbon Dioxide Anion Gap BUN Creatinine Est GFR ( Amer) Est GFR (Non-Af Amer) POC Glucose (mg/dL) 351 H Random Glucose Calcium Phosphorus Magnesium Total Bilirubin AST ALT Alkaline Phosphatase Ammonia Total Protein Albumin Globulin Albumin/Globulin Ratio Venous Blood Potassium Lyme Disease Screen <0.90 West Nile Virus IgG Ab 2.38 H West Nile Virus IgM Ab 0.01 07/21/17 07/22/17 07/22/17 17:50 00:27 06:16 WBC RBC Hgb Hct MCV MCH MCHC RDW Plt Count MPV Neut % (Auto) Lymph % (Auto) Ada % (Auto) Eos % (Auto) Baso % (Auto) Neut # (Auto) Lymph # (Auto) Ada # (Auto) Eos # (Auto) Baso # (Auto) Neutrophils % (Manual) Lymphocytes % (Manual) Monocytes % (Manual) Eosinophils % (Manual) Platelet Estimate Hypochromasia (manual) Poikilocytosis (manual Anisocytosis (manual) Target Cells Ovalocytes pCO2 pO2 HCO3 ABG pH ABG Total CO2 ABG O2 Saturation ABG Base Excess VBG pH VBG pCO2 VBG HCO3 VBG Total CO2 VBG O2 Sat (Calc) VBG Base Excess VBG Potassium Glucose Lactate Sodium Potassium Chloride Carbon Dioxide Anion Gap BUN Creatinine Est GFR ( Amer) Est GFR (Non-Af Amer) POC Glucose (mg/dL) 283 H 363 H 394 H Random Glucose Calcium Phosphorus Magnesium Total Bilirubin AST ALT Alkaline Phosphatase Ammonia Total Protein Albumin Globulin Albumin/Globulin Ratio Venous Blood Potassium Lyme Disease Screen West Nile Virus IgG Ab West Nile Virus IgM Ab 07/22/17 07/22/17 07/22/17 07:47 07:47 07:47 WBC 14.3 H RBC 2.64 L Hgb 8.4 L Hct 25.1 L MCV 95.1 H MCH 31.9 H MCHC 33.5 RDW 16.7 H Plt Count 221 MPV 8.1 Neut % (Auto) 72.2 Lymph % (Auto) 9.9 L Ada % (Auto) 15.0 H Eos % (Auto) 2.7 Baso % (Auto) 0.2 Neut # (Auto) 10.3 H Lymph # (Auto) 1.4 Ada # (Auto) 2.1 H Eos # (Auto) 0.4 Baso # (Auto) 0.0 Neutrophils % (Manual) 78 H Lymphocytes % (Manual) 8 L Monocytes % (Manual) 13 H Eosinophils % (Manual) 1 Platelet Estimate Normal Hypochromasia (manual) Slight Poikilocytosis (manual Slight Anisocytosis (manual) Slight Target Cells Slight Ovalocytes Slight pCO2 pO2 HCO3 ABG pH ABG Total CO2 ABG O2 Saturation ABG Base Excess VBG pH VBG pCO2 VBG HCO3 VBG Total CO2 VBG O2 Sat (Calc) VBG Base Excess VBG Potassium Glucose Lactate Sodium 133 Potassium 3.5 L Chloride 93 L Carbon Dioxide 26 Anion Gap 17 BUN 54 H Creatinine 8.0 H* Est GFR ( Amer) 8 Est GFR (Non-Af Amer) 7 POC Glucose (mg/dL) Random Glucose 355 H Calcium 8.5 L Phosphorus 3.9 Magnesium 2.0 Total Bilirubin 0.7 AST 47 ALT 75 H Alkaline Phosphatase 212 H Ammonia < 9 L Total Protein 6.1 L Albumin 3.0 L Globulin 3.2 Albumin/Globulin Ratio 0.9 L Venous Blood Potassium Lyme Disease Screen West Nile Virus IgG Ab West Nile Virus IgM Ab 07/22/17 07/22/17 07/22/17 07:49 11:33 12:24 WBC RBC Hgb Hct MCV MCH MCHC RDW Plt Count MPV Neut % (Auto) Lymph % (Auto) Ada % (Auto) Eos % (Auto) Baso % (Auto) Neut # (Auto) Lymph # (Auto) Ada # (Auto) Eos # (Auto) Baso # (Auto) Neutrophils % (Manual) Lymphocytes % (Manual) Monocytes % (Manual) Eosinophils % (Manual) Platelet Estimate Hypochromasia (manual) Poikilocytosis (manual Anisocytosis (manual) Target Cells Ovalocytes pCO2 52 H pO2 49 73 L HCO3 29.4 H ABG pH 7.39 ABG Total CO2 33.1 H ABG O2 Saturation 96.2 ABG Base Excess 5.8 H VBG pH 7.40 VBG pCO2 43 VBG HCO3 25.7 VBG Total CO2 27.9 VBG O2 Sat (Calc) 90.1 H VBG Base Excess 1.5 VBG Potassium 3.5 L Glucose 371 H Lactate 2.1 Sodium 133.0 Potassium Chloride 99.0 Carbon Dioxide Anion Gap BUN Creatinine Est GFR ( Amer) Est GFR (Non-Af Amer) POC Glucose (mg/dL) 228 H Random Glucose Calcium Phosphorus Magnesium Total Bilirubin AST ALT Alkaline Phosphatase Ammonia Total Protein Albumin Globulin Albumin/Globulin Ratio Venous Blood Potassium 3.5 L Lyme Disease Screen West Nile Virus IgG Ab West Nile Virus IgM Ab Assessment & Plan - Assessment and Plan (Free Text) Assessment: 77M with ESRD Bedside non tunneled hemodialysis catheter placement D/W Dr. Susan Novak PGY2
[2017-07-22 16:01] LABS: LYME IGG NEGATIVE (NEGATIVE)
[2017-07-22 16:04] LABS: LYME IGM NEGATIVE (NEGATIVE)
--- NOTE | 2017-07-22 16:24 | RAD ---
HISTORY: dialysis catheter COMPARISON: 07/22/2017. FINDINGS: The right-sided dialysis catheter terminates at the cavoatrial junction. The nasogastric tube terminates in the stomach. LUNGS: There is mild pulmonary venous congestion. PLEURA: No significant pleural effusion identified, no pneumothorax apparent. CARDIOVASCULAR: There is mild cardiomegaly. Status post CABG. There is stable position of left-sided permanent pacing device. OSSEOUS STRUCTURES: No significant abnormalities. VISUALIZED UPPER ABDOMEN: Normal. OTHER FINDINGS: None. IMPRESSION: Right-sided dialysis catheter terminates at the cavoatrial junction. Mild cardiomegaly and pulmonary venous congestion.
--- NOTE | 2017-07-22 18:07 | CP.PCM.PN ---
Subjective - Date & Time of Evaluation Date of Evaluation: 07/22/17 Time of Evaluation: 12:00 - Subjective Subjective: Patient seen and examined at bedside. Lethargic Physical Examination - Physical Exam Physical Exam Limitations: Positive for: Altered Mental Status Head: Positive for: Atraumatic, Normocephalic Pupils: Positive for: PERRL Extroacular Muscles: Positive for: EOMI Conjunctiva: Positive for: Normal Mouth: Positive for: Dry Neck: Positive for: Normal Range of Motion Respiratory/Chest: Positive for: Clear to Auscultation, Good Air Exchange. Negative for: Respiratory Distress Cardiovascular: Positive for: Tachycardic Abdomen: Positive for: Normal Bowel Sounds, Other (peritoneal catheter in place , c/d/i ) Back: Positive for: Normal Inspection Upper Extremity: Positive for: Normal Inspection, NORMAL PULSES, Neurovascularly Intact, Capillary Refill < 2s. Negative for: Cyanosis, Edema, Tenderness, Swelling, Erythema Lower Extremity: Positive for: Normal Inspection, NORMAL PULSES. Negative for: Edema, CALF TENDERNESS, Tenderness, Swelling, Erythema Neurological: Positive for: Other (right facial droop ) Skin: Positive for: Warm, Dry, Normal Color. Negative for: Rashes Psychiatric: Positive for: Alert, Lethargic Objective - Vital Signs/Intake and Output Vital Signs (last 24 hours): Temp Pulse Resp BP Pulse Ox 98.7 F 75 30 H 136/60 100 07/22/17 17:00 07/22/17 17:50 07/22/17 17:50 07/22/17 17:50 07/22/17 17:50 Intake and Output: 07/22/17 07/22/17 06:59 18:59 Intake Total 510 200 Balance 510 200 - Medications Medications: Current Medications Albuterol/Ipratropium (Duoneb 3 Mg/0.5 Mg (3 Ml) Ud) 3 ml INH RQ6 [facility] Last Admin: 07/22/17 08:08 Dose: 3 ml Artificial Tears (Artificial Tears) 0 ml OD Q3H PRN PRN Reason: Dry eyes Last Admin: 07/14/17 17:35 Dose: 1 drop Aspirin (Aspirin Chewable) 81 mg PO DAILY [facility] Last Admin: 07/22/17 09:18 Dose: 81 mg Calcium Acetate (Phoslo) 667 mg PO TIDCC [facility] Last Admin: 07/22/17 17:31 Dose: Not Given Carvedilol (Coreg) 12.5 mg PO BID [facility] Last Admin: 07/22/17 09:18 Dose: 12.5 mg Clopidogrel Bisulfate (Plavix) 75 mg PO DAILY [facility] Last Admin: 07/22/17 09:18 Dose: 75 mg Epoetin Kumar (Procrit) 10,000 unit SC MWF [facility] Last Admin: 07/21/17 09:58 Dose: 10,000 unit Heparin Sodium (Porcine) (Heparin) 5,000 units SC Q12H [facility] Last Admin: 07/22/17 09:18 Dose: 5,000 units Meropenem 500 mg/ Sodium (Chloride) 100 mls @ 100 mls/hr IVPB Q12H [facility] PRN Reason: Protocol Last Admin: 07/22/17 12:52 Dose: 100 mls/hr Vancomycin HCl 500 mg/ Sodium (Chloride) 100 mls @ 100 mls/hr IVPB Q48H [facility] PRN Reason: Protocol Last Admin: 07/21/17 00:54 Dose: 100 mls/hr Acyclovir 200 mg/ Sodium (Chloride) 100 mls @ 100 mls/hr IV Q12H [facility] PRN Reason: Protocol Last Admin: 07/22/17 13:50 Dose: 100 mls/hr Insulin Human Regular (Novolin R) 0 unit SC Q6 [facility] PRN Reason: Protocol Last Admin: 07/22/17 17:51 Dose: Not Given Levetiracetam (Keppra) 500 mg PO BID [facility] Last Admin: 07/22/17 09:26 Dose: 500 mg Levothyroxine Sodium (Synthroid) 50 mcg PO DAILY@0630 [facility] Last Admin: 07/22/17 06:14 Dose: 50 mcg Vitamin A (Vitamin A & D Oint Ud Foilpak) 1 ea TOP BID [facility] Last Admin: 07/22/17 17:55 Dose: 1 ea - Labs Labs: 07/22/17 07:47 07/22/17 07:47 PT 12.4 SECONDS (9.7-12.2) H 07/13/17 10:35 INR 1.1 07/13/17 10:35 APTT 31 SECONDS (21-34) 07/13/17 10:35 Assessment and Plan - Assessment and Plan (Free Text) Assessment: This is a 76 year old male with HTN, DM, Hypercholesterimia, CAD, CABG with 5 vessel disease, ESRD on peritoneal dialysis, with symptomatic bradycardia s/p pacemaker placed [address] Valencia, hypothyroidism, who presented to the ED on 07/28 for dysphagia and slurred speech, was diagnosed with Yu's Palsy. Patient is with persistent AMS 2/2 Metabolic Encephalopathy. Plan for HD, s/p catheter placement 07/22/17. Plan: Neuro: A: Right Yu's Palsy Neurology: Dr. Thompson - on board Imaging: - Head CT: 1. Confluent area of low attenuation within the right frontal subcortical white matter suggestive for chronic ischemic change. 2. Scattered areas of chronic microvascular ischemic change. 3. Prominent ventricles. 4. No evidence of acute intracranial hemorrhage. If there is persistent concern for acute ischemic change, correlation with MRI is recommended. - Head/ Neck CTA: There is nonvisualization origin left vertebral artery. Left vertebral artery reconstitutes at approximately the lower C5 level and is seen on as a patent vessel to the level of the C2 segment where the vertebral artery is no longer visualized and appears to be occluded. Findings could represent sequela of atherosclerotic disease or dissection. Clinical correlation recommended. Right vertebral artery is patent throughout. The common carotid arteries, carotid bifurcations and internal carotid artery is widely patent. There is a calcified atherosclerotic plaque both cavernous carotid segments. The the at anterior middle and posterior cerebral arteries are patent. No evidence of large aneurysm nor vascular malformation. - Not able to have MRI - due to recent PPM placement - 07/[address]: No intracranial mass, hemorrhage or evidence of acute infarct. Right frontal encephalomalacia, possibly old MCA territory infarct. Small nonspecific right mastoid effusion. Chronic white matter ischemic change. 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 A: Hx CVA Cardio: A: HTN, CAD, CABG with 5 vessel disease, with symptomatic bradycardia s/p pacemaker placed [address] Valencia - Recent ECHO performed in Dr. Elizabeth's office as outpatient - ASA 81mg, Plavix 75mg, Coreg 12.5mg PO BID, Crestor 10mg Pulm: - Duonebs Endo: A: Hypothyroidism - Resumed Synthroid 50 mcg A: DM - Accuchecks - ISS - medium - A1C 8.4 - Will monitor as started on prednisone, expect hyperglycemia GI: A: Cirrhosis, etiology unclear Dr. Irvin consulted Renal: A: ESRD on peritoneal dialysis, family wants to HD. Nephrology consulted - Dr. Benson - Procrit Heme/Onc A: Anemia of Chronic Disease - Baseline hemoglobin 9s - Continue with Procrit ID: A: Sepsis 2/2 Otitis Media with right mastoid effusion? Mastoiditis? r/o Meningitis ID consulted - Dr. Gabe Villegas - Workup up ordered - Started on Merrem 500 Q12 (07/18) , Vanco 500mg Q48 (07/19), and Acyclovir 400mg Q12 (07/22) - Pending EEG Prophylaxis - Pepcid 2/2 to steroids - Heparin [id number] - Diet: Dysphagia Diet as per Speech Therapist - PT/OT
[2017-07-22 20:20] LABS: BASO # 0.1 K/uL (0.0-0.2); BASO % 0.3 % (0.0-2.0); EOS # 0.7 K/uL (0.0-0.7); EOS % 3.6 % (0.0-4.0); HEMOGLOBIN 9.1 g/dL (12.0-18.0); LYMPH # 1.9 K/uL (1.0-4.3); LYMPH % 10.1 % (20.0-40.0); MEAN CELL VOLUME 94.1 fL (80.0-94.0); MEAN CORPUSCULAR HGB CONC 32.9 g/dL (33.0-37.0); MONO # 2.6 K/uL (0.0-0.8); MONO % 13.7 % (0.0-10.0); NEUT # 13.7 K/uL (1.8-7.0); NEUT % 72.3 % (50.0-75.0); RBC 2.95 Mil/uL (4.40-5.90); RED CELL DISTRIBUTION WIDTH 16.4 % (11.5-14.5); WHITE BLOOD COUNT 18.9 K/uL (4.8-10.8)
[2017-07-22 20:21] LABS: ALB/GLOB RATIO 0.8 (1.0-2.1); ALBUMIN 3.1 g/dL (3.5-5.0); CALCIUM 8.2 mg/dl (8.6-10.4)
[2017-07-22] MEDS ORDERED: Propofol 10 mg/ml 1,000 MG/100 ML VIAL IV PRN (20:21)
[2017-07-22 20:24] LABS: PROTHROMBIN TIME 11.2 SECONDS (9.7-12.2)
[2017-07-22] MEDS: Sodium Chloride 0.9% 1,000 ML IV SCH (20:30)
[2017-07-22 20:45] LABS: PROLACTIN 11.3 ng/mL (3.7-17.9)
[2017-07-22 21:07] LABS: ABG ALLEN TEST POS; ARTERIAL BLOOD GAS HCO3 30.2 mmol/L (21-28); ARTERIAL BLOOD GAS O2 SAT 98.2 % (95-98); ARTERIAL BLOOD GAS PCO2 39 mm/Hg (35-45); ARTERIAL BLOOD GAS PO2 191 mm/Hg (80-100); ARTERIAL BLOOD GAS TCO2 31.6 mmol/L (22-28)
--- NOTE | 2017-07-22 21:59 | CP.PCM.PN ---
Subjective - Date & Time of Evaluation Date of Evaluation: 07/22/17 Time of Evaluation: 21:55 - Subjective Subjective: Patient become more lethargic this morning. During the examination he was not opening his eyes, there was not much reflux as noted. Having agonal breathing. Patient was immediately transferred to the intensive care unit. Family was at bedside. I spoke to the family in details about the patient's overall prognosis Family wanted to have hemodialysis. Surgeon placed the hemodialysis catheter on the right internal jugular vein this morning. Patient just finished having up getting the hemodialysis. He tolerated well. But the patient is having more dyspnea. He is little more awake than this morning. He is opening his eyes with the deep stimuli. Because of the respiratory distress we decided to intubate, and after discussion with the family patient was intubated without any events. On examination: Currently patient is on ventilator. FiO2 50%. Saturation 100%. Blood pressure vital signs are stable. Chest good air entry bilaterally Regular heart sound. Abdomen nontender. No pedal edema noted Patient's repeat labs reviewed Nonspecific. Prolactin level is normal also. Creatinine is improved now Chest x-ray currently pending Assessment and recommendation: 77-year-old male with a history of CAD hypertension hypercholesterolemia CABG and history of pacemaker recently done. Admitted with a CVA. History of old CVA. Becoming more and more lethargic, and altered mental status. Unclear etiology. Underlying neurological inflammatory condition cannot be ruled out. Family is agreeing for LP, will possibly will do it tomorrow morning. We will continue the full support ventilation, full medical support at this time , on antibiotic. Patient is being treated with antibiotic and acyclovir with the suspected meningitis versus encephalitis. We will repeat the EEG in the morning, repeat CAT scan. We will follow the patient. Discussed with the family, poor prognosis. Objective - Vital Signs/Intake and Output Vital Signs (last 24 hours): Temp Pulse Resp BP Pulse Ox 98.9 F 77 15 98/47 L 100 07/22/17 20:00 07/22/17 21:02 07/22/17 21:02 07/22/17 21:02 07/22/17 21:02 Intake and Output: 07/22/17 07/23/17 18:59 06:59 Intake Total 300 0 Output Total 0 0 Balance 300 0 - Medications Medications: Current Medications Albuterol/Ipratropium (Duoneb 3 Mg/0.5 Mg (3 Ml) Ud) 3 ml INH RQ6 [facility] Last Admin: 07/22/17 08:08 Dose: 3 ml Artificial Tears (Artificial Tears) 0 ml OD Q3H PRN PRN Reason: Dry eyes Last Admin: 07/14/17 17:35 Dose: 1 drop Aspirin (Aspirin Chewable) 81 mg PO DAILY [facility] Last Admin: 07/22/17 09:18 Dose: 81 mg Calcium Acetate (Phoslo) 667 mg PO TIDCC [facility] Last Admin: 07/22/17 17:31 Dose: Not Given Carvedilol (Coreg) 12.5 mg PO BID [facility] Last Admin: 07/22/17 18:15 Dose: Not Given Clopidogrel Bisulfate (Plavix) 75 mg PO DAILY [facility] Last Admin: 07/22/17 09:18 Dose: 75 mg Epoetin Kumar (Procrit) 10,000 unit SC MWF [facility] Last Admin: 07/21/17 09:58 Dose: 10,000 unit Heparin Sodium (Porcine) (Heparin) 5,000 units SC Q12H [facility] Last Admin: 07/22/17 09:18 Dose: 5,000 units Meropenem 500 mg/ Sodium (Chloride) 100 mls @ 100 mls/hr IVPB Q12H [facility] PRN Reason: Protocol Last Admin: 07/22/17 12:52 Dose: 100 mls/hr Vancomycin HCl 500 mg/ Sodium (Chloride) 100 mls @ 100 mls/hr IVPB Q48H [facility] PRN Reason: Protocol Last Admin: 07/21/17 00:54 Dose: 100 mls/hr Acyclovir 200 mg/ Sodium (Chloride) 100 mls @ 100 mls/hr IV Q12H [facility] PRN Reason: Protocol Last Admin: 07/22/17 13:50 Dose: 100 mls/hr Sodium Chloride (Sodium Chloride 0.9%) 1,000 mls @ 75 mls/hr IV .[id number] [facility] Last Admin: 07/22/17 20:30 Dose: 75 mls/hr Propofol (Diprivan) 1,000 mg in 100 mls @ 2.4 mls/hr IV .Q24H PRN; Protocol; 5 MCG/KG/MIN PRN Reason: TITRATE PER MD ORDER Last Admin: 07/22/17 20:40 Dose: 10 mcg/kg/min, 4.8 mls/hr Insulin Human Regular (Novolin R) 0 unit SC Q6 [facility] PRN Reason: Protocol Last Admin: 07/22/17 17:51 Dose: Not Given Levothyroxine Sodium (Synthroid) 50 mcg PO DAILY@0630 [facility] Last Admin: 07/22/17 06:14 Dose: 50 mcg Vitamin A (Vitamin A & D Oint Ud Foilpak) 1 ea TOP BID [facility] Last Admin: 07/22/17 17:55 Dose: 1 ea - Labs Labs: 07/22/17 20:01 07/22/17 20:01 PT 11.2 SECONDS (9.7-12.2) 07/22/17 20:01 INR 1.0 07/22/17 20:01 APTT 35 SECONDS (21-34) H 07/22/17 20:01
[2017-07-22] MEDS: Aritificial Tears (15ml) OD PRN (22:25)
--- NOTE | 2017-07-22 23:28 | CP.PCM.PN ---
Subjective - Date & Time of Evaluation Date of Evaluation: 07/22/17 Time of Evaluation: 23:28 - Subjective Subjective: Events noted. Patient transferred to ICU because of increasing lethargy And dyspnea maximum temperature 99.4, TACHYCARDIC HEART RATE 120/M, Patient had hemodialysis catheter inserted this am for hemodialysis. Patient unresponsive to verbal stimuli, ROS COULD NOT BE OBTAINED. lABS REVIEWED; wbc INCREASING 14.3 NH3 <9 LYME DISEASE SCREEN <0.90 NEGATIVE. LFTS IMPROVING TRANSAMINITIS AP 212. Case discussed with the boiler assistant operator DR TOURE ETIOLOGY OF DETERIORATING MENTAL STATUS NOT VERY CLEAR. IF NOT CONTRAINDICATED,A DIAGNOSTIC LP SHOULD BE PERFORMED R/O OCCULT TOWING PILOT INFECTION. DR TOURE SOLAR DESIGN ENGINEER to discuss with Neurology. Objective - Vital Signs/Intake and Output Vital Signs (last 24 hours): Temp Pulse Resp BP Pulse Ox 98.9 F 77 15 98/47 L 100 07/22/17 20:00 07/22/17 21:02 07/22/17 21:02 07/22/17 21:02 07/22/17 21:02 Intake and Output: 07/22/17 07/23/17 18:59 06:59 Intake Total 300 164.4 Output Total 0 0 Balance 300 164.4 - Medications Medications: Current Medications Albuterol/Ipratropium (Duoneb 3 Mg/0.5 Mg (3 Ml) Ud) 3 ml INH RQ6 [facility] Last Admin: 07/22/17 08:08 Dose: 3 ml Artificial Tears (Artificial Tears) 0 ml OD Q3H PRN PRN Reason: Dry eyes Last Admin: 07/22/17 22:25 Dose: 1 drop Aspirin (Aspirin Chewable) 81 mg PO DAILY [facility] Last Admin: 07/22/17 09:18 Dose: 81 mg Calcium Acetate (Phoslo) 667 mg PO TIDCC [facility] Last Admin: 07/22/17 17:31 Dose: Not Given Carvedilol (Coreg) 12.5 mg PO BID [facility] Last Admin: 07/22/17 18:15 Dose: Not Given Clopidogrel Bisulfate (Plavix) 75 mg PO DAILY [facility] Last Admin: 07/22/17 09:18 Dose: 75 mg Epoetin Kumar (Procrit) 10,000 unit SC MWF [facility] Last Admin: 07/21/17 09:58 Dose: 10,000 unit Heparin Sodium (Porcine) (Heparin) 5,000 units SC Q12H [facility] Last Admin: 07/22/17 22:25 Dose: 5,000 units Meropenem 500 mg/ Sodium (Chloride) 100 mls @ 100 mls/hr IVPB Q12H JAYLA PRN Reason: Protocol Last Admin: 07/22/17 22:30 Dose: 100 mls/hr Vancomycin HCl 500 mg/ Sodium (Chloride) 100 mls @ 100 mls/hr IVPB Q48H JAYLA PRN Reason: Protocol Last Admin: 07/21/17 00:54 Dose: 100 mls/hr Acyclovir 200 mg/ Sodium (Chloride) 100 mls @ 100 mls/hr IV Q12H JAYLA PRN Reason: Protocol Last Admin: 07/22/17 13:50 Dose: 100 mls/hr Sodium Chloride (Sodium Chloride 0.9%) 1,000 mls @ 75 mls/hr IV .[id number] [facility] Last Admin: 07/22/17 20:30 Dose: 75 mls/hr Propofol (Diprivan) 1,000 mg in 100 mls @ 2.4 mls/hr IV .Q24H PRN; Protocol; 5 MCG/KG/MIN PRN Reason: TITRATE PER MD ORDER Last Admin: 07/22/17 20:40 Dose: 10 mcg/kg/min, 4.8 mls/hr Insulin Human Regular (Novolin R) 0 unit SC Q6 JAYLA PRN Reason: Protocol Last Admin: 07/22/17 17:51 Dose: Not Given Levothyroxine Sodium (Synthroid) 50 mcg PO DAILY@0630 [facility] Last Admin: 07/22/17 06:14 Dose: 50 mcg Modafinil (Provigil) 50 mg PO DAILY [facility] Vitamin A (Vitamin A & D Oint Ud Foilpak) 1 ea TOP BID [facility] Last Admin: 07/22/17 17:55 Dose: 1 ea - Labs Labs: 07/22/17 20:01 07/22/17 20:01 PT 11.2 SECONDS (9.7-12.2) 07/22/17 20:01 INR 1.0 07/22/17 20:01 APTT 35 SECONDS (21-34) H 07/22/17 20:01 - Constitutional Appears: Confused, Chronically Ill - Head Exam Head Exam: NORMAL INSPECTION - Eye Exam Eye Exam: PERRL - ENT Exam ENT Exam: Mucous Membranes Moist - Neck Exam Neck Exam: Meningismus, Normal Inspection - Respiratory Exam Respiratory Exam: Clear to Ausculation Bilateral - Cardiovascular Exam Cardiovascular Exam: Tachycardia, +S1, +S2 - GI/Abdominal Exam GI & Abdominal Exam: Soft, Normal Bowel Sounds - Extremities Exam Extremities Exam: Normal Capillary Refill. absent: Calf Tenderness, Pedal Edema - Neurological Exam Neurological Exam: Altered (RT FACIAL PALSY.) - Skin Skin Exam: Pallor, Warm Assessment and Plan (1) Toxic metabolic encephalopathy Assessment & Plan: CONTINUE TO MONITOR NEURO STATUS. EEG --PENDING CONTINUE TO MONITOR ELECTROLYTES/LFTS . 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 Consider CT of the mastoid r/o mastoiditis Continue IV antibiotics IV MERREM 500MG IV Q 12HRLY. CONTINUE IV VANCOMYCIN --INCREASE DOSETO 1GM POST HD TTS (1 DOSE TONIGHT ) dc iv ampicillin as discussed with resident. decrease IV acyclovir 200 mg every 12 hourly. case discussed with the boiler assistant operator and family members. Status: Acute (3) Type 2 diabetes mellitus with diabetic nephropathy Status: Acute (4) ESRD (end stage renal disease) Assessment & Plan: status post rt ij perma- catheter for hemodialysis today. Status: Acute (5) Heart block AV complete Status: Acute
[2017-07-23 06:08] LABS: ABG ALLEN TEST POS; ARTERIAL BLOOD GAS HCO3 28.1 mmol/L (21-28); ARTERIAL BLOOD GAS HEMOGLOBIN 7.9 g/dL (11.7-17.4); ARTERIAL BLOOD GAS O2 SAT 98.4 % (95-98); ARTERIAL BLOOD GAS PCO2 42 mm/Hg (35-45); ARTERIAL BLOOD GAS PH 7.44 (7.35-7.45); ARTERIAL BLOOD GAS PO2 156 mm/Hg (80-100); ARTERIAL BLOOD GAS TCO2 29.8 mmol/L (22-28)
[2017-07-23 06:19] LABS: BASO # 0.1 K/uL (0.0-0.2); BASO % 0.5 % (0.0-2.0); EOS # 0.5 K/uL (0.0-0.7); EOS % 3.6 % (0.0-4.0); HEMOGLOBIN 7.7 g/dL (12.0-18.0); LYMPH # 1.6 K/uL (1.0-4.3); LYMPH % 11.9 % (20.0-40.0); MEAN CELL VOLUME 95.1 fL (80.0-94.0); MEAN CORPUSCULAR HGB CONC 33.6 g/dL (33.0-37.0); MEAN PLATELET VOLUME 8.6 fL (7.2-11.7); MONO # 1.9 K/uL (0.0-0.8); MONO % 14.1 % (0.0-10.0); NEUT # 9.6 K/uL (1.8-7.0); NEUT % 69.9 % (50.0-75.0); NRBC % 0.1 % (0.0-2.0); RBC 2.42 Mil/uL (4.40-5.90); RED CELL DISTRIBUTION WIDTH 16.7 % (11.5-14.5); WHITE BLOOD COUNT 13.8 K/uL (4.8-10.8)
[2017-07-23] MEDS: Levothyroxine 50 MCG TAB PO SCH (06:25)
[2017-07-23] MEDS: (Novolin R) Insulin Human Regular 100 units/ml vial SC SCH ×4 (06:25→18:21)
[2017-07-23 06:33] LABS: ALB/GLOB RATIO 0.9 (1.0-2.1); ALBUMIN 2.6 g/dL (3.5-5.0); CALCIUM 7.4 mg/dl (8.6-10.4)
[2017-07-23] MEDS: Albuterol-Ipratrop 3 mg / 0.5 (3 ml) UD INH SCH ×3 (07:33→20:25)
--- NOTE | 2017-07-23 09:06 | RAD ---
PROCEDURE: CHEST RADIOGRAPH, 1 VIEW HISTORY: post-intubation COMPARISON: Chest radiograph performed earlier the same day at 3:40 p.m. FINDINGS: LUNGS: Pulmonary vascular congestion. Left basilar atelectasis. PLEURA: No pneumothorax or pleural fluid seen. CARDIOVASCULAR: Left subclavian access pacemaker redemonstrated. Prior sternotomy with sternal wires and surgical clips redemonstrated. Atherosclerotic aortic calcifications. Cardiomediastinal silhouette stably enlarged. OSSEOUS STRUCTURES: Unchanged. VISUALIZED UPPER ABDOMEN: Normal. OTHER FINDINGS: Endotracheal tube with tip between the clavicular heads. Enteric tube, unchanged. Right subclavian access hemodialysis catheter, unchanged. IMPRESSION: New endotracheal tube in satisfactory position. No other significant interval change.
[2017-07-23] MEDS ORDERED: Modafinil 50 MG TAB PO SCH (10:00)
[2017-07-23] MEDS: Sodium Chloride 0.9% 1,000 ML IV SCH (10:19)
--- NOTE | 2017-07-23 10:40 | RAD ---
PROCEDURE: CHEST RADIOGRAPH, 1 VIEW HISTORY: vent COMPARISON: Chest radiograph dated 07/22/2017. FINDINGS: LUNGS: Pulmonary vascular congestion. PLEURA: No pneumothorax or pleural fluid seen. CARDIOVASCULAR: Subclavian access pacemaker redemonstrated. Prior sternotomy with sternal wires and surgical clips redemonstrated. Atherosclerotic aortic calcifications. Cardiomediastinal silhouette stably enlarged. OSSEOUS STRUCTURES: No significant abnormalities. VISUALIZED UPPER ABDOMEN: Normal. OTHER FINDINGS: Endotracheal and enteric tubes, unchanged. Right subclavian access hemodialysis catheter, unchanged. IMPRESSION: Stable tubes and lines. No significant interval change.
[2017-07-23] MEDS: Meropenem 500 MG in Sodium Chloride 0.9% 100 ML IVPB SCH (11:15)
[2017-07-23] MEDS: Vitamins A & D Oint UD Foilpak TOP SCH ×2 (11:16→17:49)
[2017-07-23] MEDS: Aritificial Tears (15ml) OD PRN (11:27)
--- NOTE | 2017-07-23 12:25 | CP.CCUPN ---
<Tameka Chin - Last Filed: 07/23/17 12:19> CCU Subjective - Physician Review Subjective (Free Text): Patient seen and examined at bedside. Patient is very lethargic, ROS unattainable. CCU Objective - Vital Signs / Intake & Output Vital Signs (Last 4 hours): Vital Signs Temp BP 07/23/17 11:16 130/32 L 07/23/17 09:45 98.7 F 07/23/17 08:45 100.3 F H Intake and Output (Last 8hrs): Intake & Output 07/22/17 07/23/17 07/23/17 22:59 06:59 14:59 Intake Total 341.8 1090.2 106.8 Output Total 0 0 Balance 341.8 1090.2 106.8 Weight 176 lb 5.917 oz 176 lb 5.917 oz Intake: IV 10 60 15 Intake, IV Amount 241.8 730.2 61.8 Left Antecubital 225 675 57 Left Antecubital side- 16.8 55.2 4.8 port Oral 60 60 Tube Feeding 30 240 30 Output: Urine 0 Urine, Voided 0 Stool 0 Other: # Voids Urine, Voided 0 # Bowel Movements 1 - Physical Exam Head: Positive for: Atraumatic, Normocephalic Pupils: Positive for: PERRL Extroacular Muscles: Positive for: EOMI Conjunctiva: Positive for: Normal Mouth: Positive for: Dry Neck: Positive for: Normal Range of Motion, Other (shiley catheter in place ) Respiratory/Chest: Positive for: Clear to Auscultation, Good Air Exchange. Negative for: Respiratory Distress Cardiovascular: Positive for: Tachycardic Abdomen: Positive for: Normal Bowel Sounds, Other (peritoneal catheter in place , c/d/i ) Back: Positive for: Normal Inspection Upper Extremity: Positive for: Normal Inspection, NORMAL PULSES, Neurovascularly Intact, Capillary Refill < 2s. Negative for: Cyanosis, Edema, Tenderness, Swelling, Erythema Lower Extremity: Positive for: Normal Inspection, NORMAL PULSES. Negative for: Edema, CALF TENDERNESS, Tenderness, Swelling, Erythema Neurological: Positive for: Other (right facial droop ) Skin: Positive for: Warm, Dry, Normal Color. Negative for: Rashes Psychiatric: Positive for: Alert, Lethargic - Medications Active Medications: Active Medications Generic Name Dose Route Start Last Admin Trade Name Freq PRN Reason Stop Dose Admin Albuterol/Ipratropium 3 ml 07/13/17 14:00 07/23/17 07:33 Duoneb 3 Mg/0.5 Mg (3 Ml) Ud INH Not Given RQ6 JAYLA Artificial Tears 0 ml 07/13/17 22:00 07/23/17 11:27 Artificial Tears OD 1 drop Q3H PRN Administration Dry eyes Aspirin 81 mg 07/15/17 10:00 07/23/17 11:16 Aspirin Chewable PO 81 mg DAILY JAYLA Administration Calcium Acetate 667 mg 07/13/17 12:00 07/23/17 11:16 Phoslo PO 667 mg TIDCC JAYLA Administration Carvedilol 12.5 mg 07/22/17 10:00 07/23/17 11:16 Coreg PO 12.5 mg BID JAYLA Administration Clopidogrel Bisulfate 75 mg 07/15/17 10:00 07/23/17 11:09 Plavix PO Not Given DAILY JAYLA Epoetin Kumar 10,000 unit 07/16/17 09:00 07/21/17 09:58 Procrit SC 10,000 unit [facility] JAYLA Administration Meropenem 500 mg/ Sodium 100 mls @ 100 mls/hr 07/18/17 23:30 07/23/17 11:15 Chloride IVPB 100 mls/hr Q12H JAYLA Administration Protocol Acyclovir 200 mg/ Sodium 100 mls @ 100 mls/hr 07/22/17 13:00 07/23/17 00:00 Chloride IV 100 mls/hr Q12H JAYLA Administration Protocol Sodium Chloride 1,000 mls @ 75 mls/hr 07/22/17 20:30 07/23/17 10:19 Sodium Chloride 0.9% IV Not Given .[id number] JAYLA Propofol 1,000 mg in 100 mls @ 2.4 mls/hr 07/22/17 20:21 07/23/17 09:00 Diprivan IV 0 mcg/kg/min .Q24H PRN 0 mls/hr TITRATE PER MD ORDER Titration Protocol 5 MCG/KG/MIN Vancomycin/Sodium Chloride 1 gm in 200 mls @ 166.7 mls/hr 07/24/17 10:00 Vancomycin 1 Gm/Ns 200 Ml IVPB 07/29/17 10:01 TTS JAYLA Protocol Insulin Human Regular 0 unit 06/05/18 07:32 07/23/17 06:25 Novolin R SC 4 unit Q6 JAYLA Administration Protocol Levothyroxine Sodium 50 mcg 07/14/17 06:30 07/23/17 06:25 Synthroid PO 50 mcg DAILY@0630 JAYLA Administration Modafinil 50 mg 07/24/17 10:00 Provigil PO DAILY JAYLA Vitamin A 1 ea 07/19/17 18:00 07/23/17 11:16 Vitamin A & D Oint Ud Foilpak TOP 1 ea BID JAYLA Administration - Patient Studies Lab Studies: Microbiology Studies 07/18/17 11:10 Blood Culture - Final Blood NO GROWTH AFTER 5 DAYS Lab Studies 07/23/17 07/23/17 07/23/17 Range/Units 11:41 06:07 06:04 WBC 13.8 H (4.8-10.8) K/uL RBC 2.42 L (4.40-5.90) Mil/uL Hgb 7.7 L (12.0-18.0) g/dL Hct 23.1 L (35.0-51.0) % MCV 95.1 H (80.0-94.0) fL MCH 32.0 H (27.0-31.0) pg MCHC 33.6 (33.0-37.0) g/dL RDW 16.7 H (11.5-14.5) % Plt Count 178 (130-400) K/uL MPV 8.6 (7.2-11.7) fL Neut % (Auto) 69.9 (50.0-75.0) % Lymph % (Auto) 11.9 L (20.0-40.0) % [place] % (Auto) 14.1 H (0.0-10.0) % Eos % (Auto) 3.6 (0.0-4.0) % Baso % (Auto) 0.5 (0.0-2.0) % Neut # (Auto) 9.6 H (1.8-7.0) K/uL Lymph # (Auto) 1.6 (1.0-4.3) K/uL [place] # (Auto) 1.9 H (0.0-0.8) K/uL Eos # (Auto) 0.5 (0.0-0.7) K/uL Baso # (Auto) 0.1 (0.0-0.2) K/uL PT (9.7-12.2) SECONDS INR APTT (21-34) SECONDS Puncture Site pCO2 (35-45) mm/Hg pO2 (80-100) mm/Hg HCO3 (21-28) mmol/L ABG pH (7.35-7.45) ABG Total CO2 (22-28) mmol/L ABG O2 Saturation (95-98) % ABG Base Excess (-2.0-3.0) mmol/L ABG Hemoglobin (11.7-17.4) g/dL ABG Carboxyhemoglobin (0.5-1.5) % POC ABG HHb (Measured) (0.0-5.0) % ABG Methemoglobin (0.0-3.0) % Navin Test A-a O2 Difference mm/Hg Respiratory Index Hgb O2 Saturation (95.0-98.0) % Vent Mode Mechanical Rate FiO2 % Tidal Volume PEEP Sodium (132-148) mmol/L Potassium (3.6-5.2) mmol/L Chloride (98-107) mmol/L Carbon Dioxide (22-30) mmol/L Anion Gap (10-20) BUN (9-20) mg/dL Creatinine (0.8-1.5) mg/dL Est GFR ( Amer) Est GFR (Non-Af Amer) POC Glucose (mg/dL) 148 H (65-110) mg/dL Random Glucose (75-110) mg/dL Calcium (8.6-10.4) mg/dl Phosphorus (2.5-4.5) mg/dL Magnesium (1.6-2.3) mg/dL Total Bilirubin (0.2-1.3) mg/dL AST (17-59) U/L ALT (21-72) U/L Alkaline Phosphatase (38-126) U/L Total Protein (6.3-8.3) g/dL Albumin (3.5-5.0) g/dL Globulin (2.2-3.9) gm/dL Albumin/Globulin Ratio (1.0-2.1) Free T4 1.46 (0.78-2.19) ng/dL TSH 3rd Generation (0.46-4.68) mIU/L Prolactin (3.7-17.9) ng/mL Random Vancomycin ug/mL Tot Complement (CH50) (31-60) U/mL Lyme Disease IgG Ab (IFA) (NEGATIVE) Lyme Disease IgM Ab (NEGATIVE) West Nile Virus IgG Ab West Nile Virus IgM Ab HSV I IgG Ab index HSV II IgG index 07/23/17 07/23/17 07/23/17 Range/Units 06:04 05:29 05:25 WBC (4.8-10.8) K/uL RBC (4.40-5.90) Mil/uL Hgb (12.0-18.0) g/dL Hct (35.0-51.0) % MCV (80.0-94.0) fL MCH (27.0-31.0) pg MCHC (33.0-37.0) g/dL RDW (11.5-14.5) % Plt Count (130-400) K/uL MPV (7.2-11.7) fL Neut % (Auto) (50.0-75.0) % Lymph % (Auto) (20.0-40.0) % [place] % (Auto) (0.0-10.0) % Eos % (Auto) (0.0-4.0) % Baso % (Auto) (0.0-2.0) % Neut # (Auto) (1.8-7.0) K/uL Lymph # (Auto) (1.0-4.3) K/uL [place] # (Auto) (0.0-0.8) K/uL Eos # (Auto) (0.0-0.7) K/uL Baso # (Auto) (0.0-0.2) K/uL PT (9.7-12.2) SECONDS INR APTT (21-34) SECONDS Puncture Site Rr pCO2 42 (35-45) mm/Hg pO2 156 H (80-100) mm/Hg HCO3 28.1 H (21-28) mmol/L ABG pH 7.44 (7.35-7.45) ABG Total CO2 29.8 H (22-28) mmol/L ABG O2 Saturation 98.4 H (95-98) % ABG Base Excess 4.0 H (-2.0-3.0) mmol/L ABG Hemoglobin 7.9 L (11.7-17.4) g/dL ABG Carboxyhemoglobin 1.2 (0.5-1.5) % POC ABG HHb (Measured) 1.6 (0.0-5.0) % ABG Methemoglobin 0.9 (0.0-3.0) % Navin Test Pos A-a O2 Difference 77.0 mm/Hg Respiratory Index 0.5 Hgb O2 Saturation 96.4 (95.0-98.0) % Vent Mode Prvc Mechanical Rate 14 FiO2 40.0 % Tidal Volume 450 PEEP 5 Sodium 135 (132-148) mmol/L Potassium 4.0 (3.6-5.2) mmol/L Chloride 98 (98-107) mmol/L Carbon Dioxide 27 (22-30) mmol/L Anion Gap 14 (10-20) BUN 36 H (9-20) mg/dL Creatinine 5.0 H (0.8-1.5) mg/dL Est GFR ( Amer) 14 Est GFR (Non-Af Amer) 11 POC Glucose (mg/dL) 211 H (65-110) mg/dL Random Glucose 183 H (75-110) mg/dL Calcium 7.4 L (8.6-10.4) mg/dl Phosphorus 3.4 (2.5-4.5) mg/dL Magnesium 1.8 (1.6-2.3) mg/dL Total Bilirubin 0.5 (0.2-1.3) mg/dL AST 44 (17-59) U/L ALT 66 (21-72) U/L Alkaline Phosphatase 159 H D (38-126) U/L Total Protein 5.5 L (6.3-8.3) g/dL Albumin 2.6 L (3.5-5.0) g/dL Globulin 3.0 (2.2-3.9) gm/dL Albumin/Globulin Ratio 0.9 L (1.0-2.1) Free T4 (0.78-2.19) ng/dL TSH 3rd Generation 4.02 (0.46-4.68) mIU/L Prolactin (3.7-17.9) ng/mL Random Vancomycin ug/mL Tot Complement (CH50) (31-60) U/mL Lyme Disease IgG Ab (IFA) (NEGATIVE) Lyme Disease IgM Ab (NEGATIVE) West Nile Virus IgG Ab West Nile Virus IgM Ab HSV I IgG Ab index HSV II IgG index 07/23/17 07/22/17 07/22/17 Range/Units 00:07 20:25 20:01 WBC (4.8-10.8) K/uL RBC (4.40-5.90) Mil/uL Hgb (12.0-18.0) g/dL Hct (35.0-51.0) % MCV (80.0-94.0) fL MCH (27.0-31.0) pg MCHC (33.0-37.0) g/dL RDW (11.5-14.5) % Plt Count (130-400) K/uL MPV (7.2-11.7) fL Neut % (Auto) (50.0-75.0) % Lymph % (Auto) (20.0-40.0) % [place] % (Auto) (0.0-10.0) % Eos % (Auto) (0.0-4.0) % Baso % (Auto) (0.0-2.0) % Neut # (Auto) (1.8-7.0) K/uL Lymph # (Auto) (1.0-4.3) K/uL [place] # (Auto) (0.0-0.8) K/uL Eos # (Auto) (0.0-0.7) K/uL Baso # (Auto) (0.0-0.2) K/uL PT (9.7-12.2) SECONDS INR APTT (21-34) SECONDS Puncture Site Rradial pCO2 39 (35-45) mm/Hg pO2 191 H (80-100) mm/Hg HCO3 30.2 H (21-28) mmol/L ABG pH 7.50 H (7.35-7.45) ABG Total CO2 31.6 H (22-28) mmol/L ABG O2 Saturation 98.2 H (95-98) % ABG Base Excess 6.7 H (-2.0-3.0) mmol/L ABG Hemoglobin 9.0 L (11.7-17.4) g/dL ABG Carboxyhemoglobin 0.8 (0.5-1.5) % POC ABG HHb (Measured) 1.8 (0.0-5.0) % ABG Methemoglobin 0.8 (0.0-3.0) % Navin Test Pos A-a O2 Difference 117.0 mm/Hg Respiratory Index 0.6 Hgb O2 Saturation 96.6 (95.0-98.0) % Vent Mode Prvc Mechanical Rate 16 FiO2 50.0 % Tidal Volume 500 PEEP 5 Sodium 137 (132-148) mmol/L Potassium 3.9 (3.6-5.2) mmol/L Chloride 96 L (98-107) mmol/L Carbon Dioxide 33 H (22-30) mmol/L Anion Gap 13 (10-20) BUN 22 H (9-20) mg/dL Creatinine 3.2 H (0.8-1.5) mg/dL Est GFR ( Amer) 23 Est GFR (Non-Af Amer) 19 POC Glucose (mg/dL) 138 H (65-110) mg/dL Random Glucose 132 H (75-110) mg/dL Calcium 8.2 L (8.6-10.4) mg/dl Phosphorus (2.5-4.5) mg/dL Magnesium (1.6-2.3) mg/dL Total Bilirubin 0.8 (0.2-1.3) mg/dL AST 49 (17-59) U/L ALT 79 H (21-72) U/L Alkaline Phosphatase 234 H (38-126) U/L Total Protein 6.9 (6.3-8.3) g/dL Albumin 3.1 L (3.5-5.0) g/dL Globulin 3.8 (2.2-3.9) gm/dL Albumin/Globulin Ratio 0.8 L (1.0-2.1) Free T4 (0.78-2.19) ng/dL TSH 3rd Generation (0.46-4.68) mIU/L Prolactin 11.3 (3.7-17.9) ng/mL Random Vancomycin ug/mL Tot Complement (CH50) (31-60) U/mL Lyme Disease IgG Ab (IFA) (NEGATIVE) Lyme Disease IgM Ab (NEGATIVE) West Nile Virus IgG Ab West Nile Virus IgM Ab HSV I IgG Ab index HSV II IgG index 07/22/17 07/22/1707/22/18 Range/Units 20:01 20:01 20:01 WBC 18.9 H (4.8-10.8) K/uL RBC 2.95 L (4.40-5.90) Mil/uL Hgb 9.1 L (12.0-18.0) g/dL Hct 27.7 L (35.0-51.0) % MCV 94.1 H (80.0-94.0) fL MCH 31.0 (27.0-31.0) pg MCHC 32.9 L (33.0-37.0) g/dL RDW 16.4 H (11.5-14.5) % Plt Count 217 (130-400) K/uL MPV 8.0 (7.2-11.7) fL Neut % (Auto) 72.3 (50.0-75.0) % Lymph % (Auto) 10.1 L (20.0-40.0) % [place] % (Auto) 13.7 H (0.0-10.0) % Eos % (Auto) 3.6 (0.0-4.0) % Baso % (Auto) 0.3 (0.0-2.0) % Neut # (Auto) 13.7 H (1.8-7.0) K/uL Lymph # (Auto) 1.9 (1.0-4.3) K/uL [place] # (Auto) 2.6 H (0.0-0.8) K/uL Eos # (Auto) 0.7 (0.0-0.7) K/uL Baso # (Auto) 0.1 (0.0-0.2) K/uL PT 11.2 (9.7-12.2) SECONDS INR 1.0 APTT 35 H (21-34) SECONDS Puncture Site pCO2 (35-45) mm/Hg pO2 (80-100) mm/Hg HCO3 (21-28) mmol/L ABG pH (7.35-7.45) ABG Total CO2 (22-28) mmol/L ABG O2 Saturation (95-98) % ABG Base Excess (-2.0-3.0) mmol/L ABG Hemoglobin (11.7-17.4) g/dL ABG Carboxyhemoglobin (0.5-1.5) % POC ABG HHb (Measured) (0.0-5.0) % ABG Methemoglobin (0.0-3.0) % Navin Test A-a O2 Difference mm/Hg Respiratory Index Hgb O2 Saturation (95.0-98.0) % Vent Mode Mechanical Rate FiO2 % Tidal Volume PEEP Sodium (132-148) mmol/L Potassium (3.6-5.2) mmol/L Chloride (98-107) mmol/L Carbon Dioxide (22-30) mmol/L Anion Gap (10-20) BUN (9-20) mg/dL Creatinine (0.8-1.5) mg/dL Est GFR ( Amer) Est GFR (Non-Af Amer) POC Glucose (mg/dL) (65-110) mg/dL Random Glucose (75-110) mg/dL Calcium (8.6-10.4) mg/dl Phosphorus (2.5-4.5) mg/dL Magnesium (1.6-2.3) mg/dL Total Bilirubin (0.2-1.3) mg/dL AST (17-59) U/L ALT (21-72) U/L Alkaline Phosphatase (38-126) U/L Total Protein (6.3-8.3) g/dL Albumin (3.5-5.0) g/dL Globulin (2.2-3.9) gm/dL Albumin/Globulin Ratio (1.0-2.1) Free T4 (0.78-2.19) ng/dL TSH 3rd Generation (0.46-4.68) mIU/L Prolactin (3.7-17.9) ng/mL Random Vancomycin 9.2 ug/mL Tot Complement (CH50) (31-60) U/mL Lyme Disease IgG Ab (IFA) (NEGATIVE) Lyme Disease IgM Ab (NEGATIVE) West Nile Virus IgG Ab West Nile Virus IgM Ab HSV I IgG Ab index HSV II IgG index 07/22/17 07/22/17 07/21/17 Range/Units 17:47 12:24 08:02 WBC (4.8-10.8) K/uL RBC (4.40-5.90) Mil/uL Hgb (12.0-18.0) g/dL Hct (35.0-51.0) % MCV (80.0-94.0) fL MCH (27.0-31.0) pg MCHC (33.0-37.0) g/dL RDW (11.5-14.5) % Plt Count (130-400) K/uL MPV (7.2-11.7) fL Neut % (Auto) (50.0-75.0) % Lymph % (Auto) (20.0-40.0) % [place] % (Auto) (0.0-10.0) % Eos % (Auto) (0.0-4.0) % Baso % (Auto) (0.0-2.0) % Neut # (Auto) (1.8-7.0) K/uL Lymph # (Auto) (1.0-4.3) K/uL [place] # (Auto) (0.0-0.8) K/uL Eos # (Auto) (0.0-0.7) K/uL Baso # (Auto) (0.0-0.2) K/uL PT (9.7-12.2) SECONDS INR APTT (21-34) SECONDS Puncture Site pCO2 (35-45) mm/Hg pO2 (80-100) mm/Hg HCO3 (21-28) mmol/L ABG pH (7.35-7.45) ABG Total CO2 (22-28) mmol/L ABG O2 Saturation (95-98) % ABG Base Excess (-2.0-3.0) mmol/L ABG Hemoglobin (11.7-17.4) g/dL ABG Carboxyhemoglobin (0.5-1.5) % POC ABG HHb (Measured) (0.0-5.0) % ABG Methemoglobin (0.0-3.0) % Navin Test A-a O2 Difference mm/Hg Respiratory Index Hgb O2 Saturation (95.0-98.0) % Vent Mode Mechanical Rate FiO2 % Tidal Volume PEEP Sodium (132-148) mmol/L Potassium (3.6-5.2) mmol/L Chloride (98-107) mmol/L Carbon Dioxide (22-30) mmol/L Anion Gap (10-20) BUN (9-20) mg/dL Creatinine (0.8-1.5) mg/dL Est GFR ( Amer) Est GFR (Non-Af Amer) POC Glucose (mg/dL) 147 H 228 H (65-110) mg/dL Random Glucose (75-110) mg/dL Calcium (8.6-10.4) mg/dl Phosphorus (2.5-4.5) mg/dL Magnesium (1.6-2.3) mg/dL Total Bilirubin (0.2-1.3) mg/dL AST (17-59) U/L ALT (21-72) U/L Alkaline Phosphatase (38-126) U/L Total Protein (6.3-8.3) g/dL Albumin (3.5-5.0) g/dL Globulin (2.2-3.9) gm/dL Albumin/Globulin Ratio (1.0-2.1) Free T4 (0.78-2.19) ng/dL TSH 3rd Generation (0.46-4.68) mIU/L Prolactin (3.7-17.9) ng/mL Random Vancomycin ug/mL Tot Complement (CH50) (31-60) U/mL Lyme Disease IgG Ab (IFA) Negative (NEGATIVE) Lyme Disease IgM Ab Negative (NEGATIVE) West Nile Virus IgG Ab West Nile Virus IgM Ab HSV I IgG Ab index HSV II IgG index 07/20/17 07/20/17 07/19/17 Range/Units 06:38 06:38 08:31 WBC (4.8-10.8) K/uL RBC (4.40-5.90) Mil/uL Hgb (12.0-18.0) g/dL Hct (35.0-51.0) % MCV (80.0-94.0) fL MCH (27.0-31.0) pg MCHC (33.0-37.0) g/dL RDW (11.5-14.5) % Plt Count (130-400) K/uL MPV (7.2-11.7) fL Neut % (Auto) (50.0-75.0) % Lymph % (Auto) (20.0-40.0) % [place] % (Auto) (0.0-10.0) % Eos % (Auto) (0.0-4.0) % Baso % (Auto) (0.0-2.0) % Neut # (Auto) (1.8-7.0) K/uL Lymph # (Auto) (1.0-4.3) K/uL [place] # (Auto) (0.0-0.8) K/uL Eos # (Auto) (0.0-0.7) K/uL Baso # (Auto) (0.0-0.2) K/uL PT (9.7-12.2) SECONDS INR APTT (21-34) SECONDS Puncture Site pCO2 (35-45) mm/Hg pO2 (80-100) mm/Hg HCO3 (21-28) mmol/L ABG pH (7.35-7.45) ABG Total CO2 (22-28) mmol/L ABG O2 Saturation (95-98) % ABG Base Excess (-2.0-3.0) mmol/L ABG Hemoglobin (11.7-17.4) g/dL ABG Carboxyhemoglobin (0.5-1.5) % POC ABG HHb (Measured) (0.0-5.0) % ABG Methemoglobin (0.0-3.0) % Navin Test A-a O2 Difference mm/Hg Respiratory Index Hgb O2 Saturation (95.0-98.0) % Vent Mode Mechanical Rate FiO2 % Tidal Volume PEEP Sodium (132-148) mmol/L Potassium (3.6-5.2) mmol/L Chloride (98-107) mmol/L Carbon Dioxide (22-30) mmol/L Anion Gap (10-20) BUN (9-20) mg/dL Creatinine (0.8-1.5) mg/dL Est GFR ( Amer) Est GFR (Non-Af Amer) POC Glucose (mg/dL) (65-110) mg/dL Random Glucose (75-110) mg/dL Calcium (8.6-10.4) mg/dl Phosphorus (2.5-4.5) mg/dL Magnesium (1.6-2.3) mg/dL Total Bilirubin (0.2-1.3) mg/dL AST (17-59) U/L ALT (21-72) U/L Alkaline Phosphatase (38-126) U/L Total Protein (6.3-8.3) g/dL Albumin (3.5-5.0) g/dL Globulin (2.2-3.9) gm/dL Albumin/Globulin Ratio (1.0-2.1) Free T4 (0.78-2.19) ng/dL TSH 3rd Generation (0.46-4.68) mIU/L Prolactin (3.7-17.9) ng/mL Random Vancomycin ug/mL Tot Complement (CH50) >60 H (31-60) U/mL Lyme Disease IgG Ab (IFA) (NEGATIVE) Lyme Disease IgM Ab (NEGATIVE) West Nile Virus IgG Ab 2.38 H West Nile Virus IgM Ab 0.01 HSV I IgG Ab 32.20 H index HSV II IgG <0.90 index Laboratory Results - last 24 hr 07/19/17 07/20/17 07/20/17 08:31 06:38 06:38 WBC RBC Hgb Hct MCV MCH MCHC RDW Plt Count MPV Neut % (Auto) Lymph % (Auto) [place] % (Auto) Eos % (Auto) Baso % (Auto) Neut # (Auto) Lymph # (Auto) [place] # (Auto) Eos # (Auto) Baso # (Auto) PT INR APTT Puncture Site pCO2 pO2 HCO3 ABG pH ABG Total CO2 ABG O2 Saturation ABG Base Excess ABG Hemoglobin ABG Carboxyhemoglobin POC ABG HHb (Measured) ABG Methemoglobin Navin Test A-a O2 Difference Respiratory Index Hgb O2 Saturation Vent Mode Mechanical Rate FiO2 Tidal Volume PEEP Sodium Potassium Chloride Carbon Dioxide Anion Gap BUN Creatinine Est GFR ( Amer) Est GFR (Non-Af Amer) POC Glucose (mg/dL) Random Glucose Calcium Phosphorus Magnesium Total Bilirubin AST ALT Alkaline Phosphatase Total Protein Albumin Globulin Albumin/Globulin Ratio Free T4 TSH 3rd Generation Prolactin Random Vancomycin Tot Complement (CH50) >60 H Lyme Disease IgG Ab (IFA) Lyme Disease IgM Ab West Nile Virus IgG Ab 2.38 H West Nile Virus IgM Ab 0.01 HSV I IgG Ab 32.20 H HSV II IgG <0.90 07/21/17 07/22/17 07/22/17 08:02 12:24 17:47 WBC RBC Hgb Hct MCV MCH MCHC RDW Plt Count MPV Neut % (Auto) Lymph % (Auto) [place] % (Auto) Eos % (Auto) Baso % (Auto) Neut # (Auto) Lymph # (Auto) [place] # (Auto) Eos # (Auto) Baso # (Auto) PT INR APTT Puncture Site pCO2 pO2 HCO3 ABG pH ABG Total CO2 ABG O2 Saturation ABG Base Excess ABG Hemoglobin ABG Carboxyhemoglobin POC ABG HHb (Measured) ABG Methemoglobin Navin Test A-a O2 Difference Respiratory Index Hgb O2 Saturation Vent Mode Mechanical Rate FiO2 Tidal Volume PEEP Sodium Potassium Chloride Carbon Dioxide Anion Gap BUN Creatinine Est GFR ( Amer) Est GFR (Non-Af Amer) POC Glucose (mg/dL) 228 H 147 H Random Glucose Calcium Phosphorus Magnesium Total Bilirubin AST ALT Alkaline Phosphatase Total Protein Albumin Globulin Albumin/Globulin Ratio Free T4 TSH 3rd Generation Prolactin Random Vancomycin Tot Complement (CH50) Lyme Disease IgG Ab (IFA) Negative Lyme Disease IgM Ab Negative West Nile Virus IgG Ab West Nile Virus IgM Ab HSV I IgG Ab HSV II IgG 07/22/17 07/22/17 07/22/17 20:01 20:01 20:01 WBC 18.9 H RBC 2.95 L Hgb 9.1 L Hct 27.7 L MCV 94.1 H MCH 31.0 MCHC 32.9 L RDW 16.4 H Plt Count 217 MPV 8.0 Neut % (Auto) 72.3 Lymph % (Auto) 10.1 L [place] % (Auto) 13.7 H Eos % (Auto) 3.6 Baso % (Auto) 0.3 Neut # (Auto) 13.7 H Lymph # (Auto) 1.9 [place] # (Auto) 2.6 H Eos # (Auto) 0.7 Baso # (Auto) 0.1 PT 11.2 INR 1.0 APTT 35 H Puncture Site pCO2 pO2 HCO3 ABG pH ABG Total CO2 ABG O2 Saturation ABG Base Excess ABG Hemoglobin ABG Carboxyhemoglobin POC ABG HHb (Measured) ABG Methemoglobin Navin Test A-a O2 Difference Respiratory Index Hgb O2 Saturation Vent Mode Mechanical Rate FiO2 Tidal Volume PEEP Sodium Potassium Chloride Carbon Dioxide Anion Gap BUN Creatinine Est GFR ( Amer) Est GFR (Non-Af Amer) POC Glucose (mg/dL) Random Glucose Calcium Phosphorus Magnesium Total Bilirubin AST ALT Alkaline Phosphatase Total Protein Albumin Globulin Albumin/Globulin Ratio Free T4 TSH 3rd Generation Prolactin Random Vancomycin 9.2 Tot Complement (CH50) Lyme Disease IgG Ab (IFA) Lyme Disease IgM Ab West Nile Virus IgG Ab West Nile Virus IgM Ab HSV I IgG Ab HSV II IgG 07/22/17 07/22/17 07/23/17 20:01 20:25 00:07 WBC RBC Hgb Hct MCV MCH MCHC RDW Plt Count MPV Neut % (Auto) Lymph % (Auto) [place] % (Auto) Eos % (Auto) Baso % (Auto) Neut # (Auto) Lymph # (Auto) [place] # (Auto) Eos # (Auto) Baso # (Auto) PT INR APTT Puncture Site Rradial pCO2 39 pO2 191 H HCO3 30.2 H ABG pH 7.50 H ABG Total CO2 31.6 H ABG O2 Saturation 98.2 H ABG Base Excess 6.7 H ABG Hemoglobin 9.0 L ABG Carboxyhemoglobin 0.8 POC ABG HHb (Measured) 1.8 ABG Methemoglobin 0.8 Navin Test Pos A-a O2 Difference 117.0 Respiratory Index 0.6 Hgb O2 Saturation 96.6 Vent Mode Prvc Mechanical Rate 16 FiO2 50.0 Tidal Volume 500 PEEP 5 Sodium 137 Potassium 3.9 Chloride 96 L Carbon Dioxide 33 H Anion Gap 13 BUN 22 H Creatinine 3.2 H Est GFR ( Amer) 23 Est GFR (Non-Af Amer) 19 POC Glucose (mg/dL) 138 H Random Glucose 132 H Calcium 8.2 L Phosphorus Magnesium Total Bilirubin 0.8 AST 49 ALT 79 H Alkaline Phosphatase 234 H Total Protein 6.9 Albumin 3.1 L Globulin 3.8 Albumin/Globulin Ratio 0.8 L Free T4 TSH 3rd Generation Prolactin 11.3 Random Vancomycin Tot Complement (CH50) Lyme Disease IgG Ab (IFA) Lyme Disease IgM Ab West Nile Virus IgG Ab West Nile Virus IgM Ab HSV I IgG Ab HSV II IgG 07/23/17 07/23/17 07/23/17 05:25 05:29 06:04 WBC RBC Hgb Hct MCV MCH MCHC RDW Plt Count MPV Neut % (Auto) Lymph % (Auto) [place] % (Auto) Eos % (Auto) Baso % (Auto) Neut # (Auto) Lymph # (Auto) [place] # (Auto) Eos # (Auto) Baso # (Auto) PT INR APTT Puncture Site Rr pCO2 42 pO2 156 H HCO3 28.1 H ABG pH 7.44 ABG Total CO2 29.8 H ABG O2 Saturation 98.4 H ABG Base Excess 4.0 H ABG Hemoglobin 7.9 L ABG Carboxyhemoglobin 1.2 POC ABG HHb (Measured) 1.6 ABG Methemoglobin 0.9 Navin Test Pos A-a O2 Difference 77.0 Respiratory Index 0.5 Hgb O2 Saturation 96.4 Vent Mode Prvc Mechanical Rate 14 FiO2 40.0 Tidal Volume 450 PEEP 5 Sodium 135 Potassium 4.0 Chloride 98 Carbon Dioxide 27 Anion Gap 14 BUN 36 H Creatinine 5.0 H Est GFR ( Amer) 14 Est GFR (Non-Af Amer) 11 POC Glucose (mg/dL) 211 H Random Glucose 183 H Calcium 7.4 L Phosphorus 3.4 Magnesium 1.8 Total Bilirubin 0.5 AST 44 ALT 66 Alkaline Phosphatase 159 H D Total Protein 5.5 L Albumin 2.6 L Globulin 3.0 Albumin/Globulin Ratio 0.9 L Free T4 TSH 3rd Generation 4.02 Prolactin Random Vancomycin Tot Complement (CH50) Lyme Disease IgG Ab (IFA) Lyme Disease IgM Ab West Nile Virus IgG Ab West Nile Virus IgM Ab HSV I IgG Ab HSV II IgG 07/23/17 07/23/17 07/23/17 06:04 06:07 11:41 WBC 13.8 H RBC 2.42 L Hgb 7.7 L Hct 23.1 L MCV 95.1 H MCH 32.0 H MCHC 33.6 RDW 16.7 H Plt Count 178 MPV 8.6 Neut % (Auto) 69.9 Lymph % (Auto) 11.9 L [place] % (Auto) 14.1 H Eos % (Auto) 3.6 Baso % (Auto) 0.5 Neut # (Auto) 9.6 H Lymph # (Auto) 1.6 [place] # (Auto) 1.9 H Eos # (Auto) 0.5 Baso # (Auto) 0.1 PT INR APTT Puncture Site pCO2 pO2 HCO3 ABG pH ABG Total CO2 ABG O2 Saturation ABG Base Excess ABG Hemoglobin ABG Carboxyhemoglobin POC ABG HHb (Measured) ABG Methemoglobin [place]in Test A-a O2 Difference Respiratory Index Hgb O2 Saturation Vent Mode Mechanical Rate FiO2 Tidal Volume PEEP Sodium Potassium Chloride Carbon Dioxide Anion Gap BUN Creatinine Est GFR ( Amer) Est GFR (Non-Af Amer) POC Glucose (mg/dL) 148 H Random Glucose Calcium Phosphorus Magnesium Total Bilirubin AST ALT Alkaline Phosphatase Total Protein Albumin Globulin Albumin/Globulin Ratio Free T4 1.46 TSH 3rd Generation Prolactin Random Vancomycin Tot Complement (CH50) Lyme Disease IgG Ab (IFA) Lyme Disease IgM Ab West Nile Virus IgG Ab West Nile Virus IgM Ab HSV I IgG Ab HSV II IgG Fingerstick Blood Sugar Results: 211 Critical Care Progress Note - Nutrition Nutrition: Nutrition Category Date Time Status NPO Diet [DIET] Diets 07/20/17 Dinner Active Assessment/Plan - Assessment and Plan (Free Text) Assessment: This is a 76 year old male with HTN, DM, Hypercholesterimia, CAD, CABG with 5 vessel disease, ESRD on peritoneal dialysis, with symptomatic bradycardia s/p pacemaker placed [address] Valencia, hypothyroidism, who presented to the ED on 07/28 for dysphagia and slurred speech, was diagnosed with Yu's Palsy. Patient is with persistent AMS 2/2 Metabolic Encephalopathy. HD x 1 session on , s/p catheter placement 07/22/17. Plan: Neuro: Intubated 2/2 Respiratory Failure on Diprivan on PRVC 14/40/450/5 A: Metabolic Encephalopathy Neurology consulted - Dr. 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 As per Dr. Elizabeth - LP A: Right Yu's Palsy Neurology: Dr. Thompson - on board Imaging: - Head CT: 1. Confluent area of low attenuation within the right frontal subcortical white matter suggestive for chronic ischemic change. 2. Scattered areas of chronic microvascular ischemic change. 3. Prominent ventricles. 4. No evidence of acute intracranial hemorrhage. If there is persistent concern for acute ischemic change, correlation with MRI is recommended. - Head/ Neck CTA: There is nonvisualization origin left vertebral artery. Left vertebral artery reconstitutes at approximately the lower C5 level and is seen on as a patent vessel to the level of the C2 segment where the vertebral artery is no longer visualized and appears to be occluded. Findings could represent sequela of atherosclerotic disease or dissection. Clinical correlation recommended. Right vertebral artery is patent throughout. The common carotid arteries, carotid bifurcations and internal carotid artery is widely patent. There is a calcified atherosclerotic plaque both cavernous carotid segments. The the at anterior middle and posterior cerebral arteries are patent. No evidence of large aneurysm nor vascular malformation. - Not able to have MRI - due to recent PPM placement - 07/[address]: No intracranial mass, hemorrhage or evidence of acute infarct. Right frontal encephalomalacia, possibly old MCA territory infarct. Small nonspecific right mastoid effusion. Chronic white matter ischemic change. A: Hx CVA -ASA 81mg, Plavix 75mg (held), Crestor 10mg Cardio: A: HTN, CAD, CABG with 5 vessel disease, with symptomatic bradycardia s/p pacemaker placed [address] Valencia - Recent ECHO performed in Dr. Elizabeth's office as outpatient - ASA 81mg, Plavix 75mg, Coreg 12.5mg PO BID, Crestor 10mg Pulm: A: Acute Respiratory Failure - Intubated 07/22/17 Endo: A: Hypothyroidism - Resumed Synthroid 50 mcg A: DM - Accuchecks - ISS - medium - A1C 8.4 GI: A: Cirrhosis, etiology unclear Dr. Irvin consulted Renal: A: ESRD previously on peritoneal dialysis Nephrology consulted - Dr. Benson - right shiley catheter placed - s/p HD 07/22/17 - Procrit - Possible HD today? Heme/Onc A: Anemia of Chronic Disease - Baseline hemoglobin 9s - Continue with Procrit - Will be transfused 1 unit PRBC today - Stool occult ID: A: Sepsis 2/2 Otitis Media with right mastoid effusion? Mastoiditis? r/o Meningitis ID consulted - Dr. Gabe Villegas - Workup up ordered - Started on Merrem 500 Q12 (07/18) , Vanco 500mg Q48 (07/19), and Acyclovir 400mg Q12 (07/22) - Pending EEG Prophylaxis - Pepcid 2/2 to steroids - Heparin during HD - Diet: NPO, OGT in place, tube feedings - PT/OT DW with Tameka Cherry, PGY-1 <Angel Acevedo - Last Filed: 07/23/17 17:45> CCU Objective - Vital Signs / Intake & Output Vital Signs (Last 4 hours): Vital Signs Temp Pulse Pulse Resp BP BP BP 07/23/17 17:30 153/52 H 07/23/17 17:15 150/54 L 07/23/17 17:05 161/51 H 07/23/17 16:50 156/57 H 07/23/17 16:35 98.7 F 65 65 15 128/59 L 128/59 L 07/23/17 16:20 98.5 F 64 64 16 143/50 L 143/50 L 07/23/17 16:05 97.7 F 64 14 116/42 L 07/23/17 16:00 98.7 F 64 14 116/42 L 07/23/17 15:50 98.7 F 63 14 107/40 L 107/40 L 07/23/17 15:45 118/43 L 07/23/17 15:35 98.7 F 109/38 L 07/23/17 15:15 98.8 F 134/47 L 07/23/17 15:01 98.8 F 67 14 121/44 L 07/23/17 15:00 66 14 120/43 L 07/23/17 14:00 68 13 124/45 L Pulse Ox 07/23/17 17:30 07/23/17 17:15 07/23/17 17:05 07/23/17 16:50 07/23/17 16:35 07/23/17 16:20 07/23/17 16:05 07/23/17 16:00 100 07/23/17 15:50 07/23/17 15:45 07/23/17 15:35 07/23/17 15:15 100 07/23/17 15:01 07/23/17 15:00 100 07/23/17 14:00 100 Intake and Output (Last 8hrs): Intake & Output 07/23/17 07/23/17 07/23/17 06:59 14:59 22:59 Intake Total 1090.2 876.4 435 Output Total 0 Balance 1090.2 876.4 435 Weight 176 lb 5.917 oz Intake: IV 60 15 Intake, IV Amount 730.2 621.4 Left Antecubital 675 607 Left Antecubital side- 55.2 14.4 port Oral 60 Tube Feeding 240 240 60 Blood Product 325 Red Blood Cells Cpd As1 325 Lr Unit [id number] Other 50 Red Blood Cells Cpd As1 50 Lr Unit [id number] Output: Urine 0 Urine, Voided 0 Other: # Bowel Movements 1 - Medications Active Medications: Active Medications Generic Name Dose Route Start Last Admin Trade Name Freq PRN Reason Stop Dose Admin Albuterol/Ipratropium 3 ml 07/13/17 14:00 07/23/17 12:59 Duoneb 3 Mg/0.5 Mg (3 Ml) Ud INH Not Given RQ6 JAYLA Artificial Tears 0 ml 07/13/17 22:00 07/23/17 11:27 Artificial Tears OD 1 drop Q3H PRN Administration Dry eyes Aspirin 81 mg 07/15/17 10:00 07/23/17 11:16 Aspirin Chewable PO 81 mg DAILY JAYLA Administration Calcium Acetate 667 mg 07/13/17 12:00 07/23/17 11:16 Phoslo PO 667 mg TIDCC JAYLA Administration Carvedilol 6.25 mg 07/23/17 18:00 Coreg PO BID JAYLA Clopidogrel Bisulfate 75 mg 07/15/17 10:00 07/23/17 11:09 Plavix PO Not Given DAILY JAYLA Epoetin Kumar 10,000 unit 07/16/17 09:00 07/23/17 16:53 Procrit SC 10,000 unit MWF JAYLA Administration Meropenem 500 mg/ Sodium 100 mls @ 100 mls/hr 07/18/17 23:30 07/23/17 11:15 Chloride IVPB 100 mls/hr Q12H JAYLA Administration Protocol Acyclovir 200 mg/ Sodium 100 mls @ 100 mls/hr 07/22/17 13:00 07/23/17 14:27 Chloride IV 100 mls/hr Q12H JAYLA Administration Protocol Sodium Chloride 1,000 mls @ 75 mls/hr 07/22/17 20:30 07/23/17 10:19 Sodium Chloride 0.9% IV Not Given .[id number] JAYLA Propofol 1,000 mg in 100 mls @ 2.4 mls/hr 07/22/17 20:21 07/23/17 09:00 Diprivan IV 0 mcg/kg/min .Q24H PRN 0 mls/hr TITRATE PER MD ORDER Titration Protocol 5 MCG/KG/MIN Vancomycin/Sodium Chloride 1 gm in 200 mls @ 166.7 mls/hr 07/24/17 10:00 Vancomycin 1 Gm/Ns 200 Ml IVPB 07/29/17 10:01 TTS JAYLA Protocol Insulin Human Regular 0 unit 07/15/17 07:32 07/23/17 12:46 Novolin R SC Not Given Q6 [facility] Protocol Levothyroxine Sodium 50 mcg 07/14/17 06:30 07/23/17 06:25 Synthroid PO 50 mcg DAILY@0630 JAYLA Administration Modafinil 50 mg 07/24/17 10:00 Provigil PO DAILY JAYLA Vitamin A 1 ea 07/19/17 18:00 07/23/17 11:16 Vitamin A & D Oint Ud Foilpak TOP 1 ea BID JAYLA Administration - Patient Studies Lab Studies: Microbiology Studies 07/18/17 11:10 Blood Culture - Final Blood NO GROWTH AFTER 5 DAYS Lab Studies 07/23/17 07/23/17 07/23/17 Range/Units 14:13 11:41 06:07 WBC 13.8 H (4.8-10.8) K/uL RBC 2.42 L (4.40-5.90) Mil/uL Hgb 7.7 L (12.0-18.0) g/dL Hct 23.1 L (35.0-51.0) % MCV 95.1 H (80.0-94.0) fL MCH 32.0 H (27.0-31.0) pg MCHC 33.6 (33.0-37.0) g/dL RDW 16.7 H (11.5-14.5) % Plt Count 178 (130-400) K/uL MPV 8.6 (7.2-11.7) fL Neut % (Auto) 69.9 (50.0-75.0) % Lymph % (Auto) 11.9 L (20.0-40.0) % [place] % (Auto) 14.1 H (0.0-10.0) % Eos % (Auto) 3.6 (0.0-4.0) % Baso % (Auto) 0.5 (0.0-2.0) % Neut # (Auto) 9.6 H (1.8-7.0) K/uL Lymph # (Auto) 1.6 (1.0-4.3) K/uL [place] # (Auto) 1.9 H (0.0-0.8) K/uL Eos # (Auto) 0.5 (0.0-0.7) K/uL Baso # (Auto) 0.1 (0.0-0.2) K/uL PT (9.7-12.2) SECONDS INR APTT (21-34) SECONDS Puncture Site pCO2 (35-45) mm/Hg pO2 (80-100) mm/Hg HCO3 (21-28) mmol/L ABG pH (7.35-7.45) ABG Total CO2 (22-28) mmol/L ABG O2 Saturation (95-98) % ABG Base Excess (-2.0-3.0) mmol/L ABG Hemoglobin (11.7-17.4) g/dL ABG Carboxyhemoglobin (0.5-1.5) % POC ABG HHb (Measured) (0.0-5.0) % ABG Methemoglobin (0.0-3.0) % Navin Test A-a O2 Difference mm/Hg Respiratory Index Hgb O2 Saturation (95.0-98.0) % Vent Mode Mechanical Rate FiO2 % Tidal Volume PEEP Sodium (132-148) mmol/L Potassium (3.6-5.2) mmol/L Chloride (98-107) mmol/L Carbon Dioxide (22-30) mmol/L Anion Gap (10-20) BUN (9-20) mg/dL Creatinine (0.8-1.5) mg/dL Est GFR ( Amer) Est GFR (Non-Af Amer) POC Glucose (mg/dL) 148 H (65-110) mg/dL Random Glucose (75-110) mg/dL Calcium (8.6-10.4) mg/dl Phosphorus (2.5-4.5) mg/dL Magnesium (1.6-2.3) mg/dL Total Bilirubin (0.2-1.3) mg/dL AST (17-59) U/L ALT (21-72) U/L Alkaline Phosphatase (38-126) U/L Total Protein (6.3-8.3) g/dL Albumin (3.5-5.0) g/dL Globulin (2.2-3.9) gm/dL Albumin/Globulin Ratio (1.0-2.1) Free T4 (0.78-2.19) ng/dL TSH 3rd Generation (0.46-4.68) mIU/L Prolactin (3.7-17.9) ng/mL Random Vancomycin ug/mL HSV I IgG Ab index HSV II IgG index Blood Type B POSITIVE Antibody Screen Negative 07/23/17 07/23/17 07/23/17 Range/Units 06:04 06:04 05:29 WBC (4.8-10.8) K/uL RBC (4.40-5.90) Mil/uL Hgb (12.0-18.0) g/dL Hct (35.0-51.0) % MCV (80.0-94.0) fL MCH (27.0-31.0) pg MCHC (33.0-37.0) g/dL RDW (11.5-14.5) % Plt Count (130-400) K/uL MPV (7.2-11.7) fL Neut % (Auto) (50.0-75.0) % Lymph % (Auto) (20.0-40.0) % [place] % (Auto) (0.0-10.0) % Eos % (Auto) (0.0-4.0) % Baso % (Auto) (0.0-2.0) % Neut # (Auto) (1.8-7.0) K/uL Lymph # (Auto) (1.0-4.3) K/uL [place] # (Auto) (0.0-0.8) K/uL Eos # (Auto) (0.0-0.7) K/uL Baso # (Auto) (0.0-0.2) K/uL PT (9.7-12.2) SECONDS INR APTT (21-34) SECONDS Puncture Site Rr pCO2 42 (35-45) mm/Hg pO2 156 H (80-100) mm/Hg HCO3 28.1 H (21-28) mmol/L ABG pH 7.44 (7.35-7.45) ABG Total CO2 29.8 H (22-28) mmol/L ABG O2 Saturation 98.4 H (95-98) % ABG Base Excess 4.0 H (-2.0-3.0) mmol/L ABG Hemoglobin 7.9 L (11.7-17.4) g/dL ABG Carboxyhemoglobin 1.2 (0.5-1.5) % POC ABG HHb (Measured) 1.6 (0.0-5.0) % ABG Methemoglobin 0.9 (0.0-3.0) % Navin Test Pos A-a O2 Difference 77.0 mm/Hg Respiratory Index 0.5 Hgb O2 Saturation 96.4 (95.0-98.0) % Vent Mode Prvc Mechanical Rate 14 FiO2 40.0 % Tidal Volume 450 PEEP 5 Sodium 135 (132-148) mmol/L Potassium 4.0 (3.6-5.2) mmol/L Chloride 98 (98-107) mmol/L Carbon Dioxide 27 (22-30) mmol/L Anion Gap 14 (10-20) BUN 36 H (9-20) mg/dL Creatinine 5.0 H (0.8-1.5) mg/dL Est GFR ( Amer) 14 Est GFR (Non-Af Amer) 11 POC Glucose (mg/dL) (65-110) mg/dL Random Glucose 183 H (75-110) mg/dL Calcium 7.4 L (8.6-10.4) mg/dl Phosphorus 3.4 (2.5-4.5) mg/dL Magnesium 1.8 (1.6-2.3) mg/dL Total Bilirubin 0.5 (0.2-1.3) mg/dL AST 44 (17-59) U/L ALT 66 (21-72) U/L Alkaline Phosphatase 159 H D (38-126) U/L Total Protein 5.5 L (6.3-8.3) g/dL Albumin 2.6 L (3.5-5.0) g/dL Globulin 3.0 (2.2-3.9) gm/dL Albumin/Globulin Ratio 0.9 L (1.0-2.1) Free T4 1.46 (0.78-2.19) ng/dL TSH 3rd Generation 4.02 (0.46-4.68) mIU/L Prolactin (3.7-17.9) ng/mL Random Vancomycin ug/mL HSV I IgG Ab index HSV II IgG index Blood Type Antibody Screen 07/23/17 07/23/17 07/22/17 Range/Units 05:25 00:07 20:25 WBC (4.8-10.8) K/uL RBC (4.40-5.90) Mil/uL Hgb (12.0-18.0) g/dL Hct (35.0-51.0) % MCV (80.0-94.0) fL MCH (27.0-31.0) pg MCHC (33.0-37.0) g/dL RDW (11.5-14.5) % Plt Count (130-400) K/uL MPV (7.2-11.7) fL Neut % (Auto) (50.0-75.0) % Lymph % (Auto) (20.0-40.0) % [place] % (Auto) (0.0-10.0) % Eos % (Auto) (0.0-4.0) % Baso % (Auto) (0.0-2.0) % Neut # (Auto) (1.8-7.0) K/uL Lymph # (Auto) (1.0-4.3) K/uL [place] # (Auto) (0.0-0.8) K/uL Eos # (Auto) (0.0-0.7) K/uL Baso # (Auto) (0.0-0.2) K/uL PT (9.7-12.2) SECONDS INR APTT (21-34) SECONDS Puncture Site Rradial pCO2 39 (35-45) mm/Hg pO2 191 H (80-100) mm/Hg HCO3 30.2 H (21-28) mmol/L ABG pH 7.50 H (7.35-7.45) ABG Total CO2 31.6 H (22-28) mmol/L ABG O2 Saturation 98.2 H (95-98) % ABG Base Excess 6.7 H (-2.0-3.0) mmol/L ABG Hemoglobin 9.0 L (11.7-17.4) g/dL ABG Carboxyhemoglobin 0.8 (0.5-1.5) % POC ABG HHb (Measured) 1.8 (0.0-5.0) % ABG Methemoglobin 0.8 (0.0-3.0) % Navin Test Pos A-a O2 Difference 117.0 mm/Hg Respiratory Index 0.6 Hgb O2 Saturation 96.6 (95.0-98.0) % Vent Mode Prvc Mechanical Rate 16 FiO2 50.0 % Tidal Volume 500 PEEP 5 Sodium (132-148) mmol/L Potassium (3.6-5.2) mmol/L Chloride (98-107) mmol/L Carbon Dioxide (22-30) mmol/L Anion Gap (10-20) BUN (9-20) mg/dL Creatinine (0.8-1.5) mg/dL Est GFR ( Amer) Est GFR (Non-Af Amer) POC Glucose (mg/dL) 211 H 138 H (65-110) mg/dL Random Glucose (75-110) mg/dL Calcium (8.6-10.4) mg/dl Phosphorus (2.5-4.5) mg/dL Magnesium (1.6-2.3) mg/dL Total Bilirubin (0.2-1.3) mg/dL AST (17-59) U/L ALT (21-72) U/L Alkaline Phosphatase (38-126) U/L Total Protein (6.3-8.3) g/dL Albumin (3.5-5.0) g/dL Globulin (2.2-3.9) gm/dL Albumin/Globulin Ratio (1.0-2.1) Free T4 (0.78-2.19) ng/dL TSH 3rd Generation (0.46-4.68) mIU/L Prolactin (3.7-17.9) ng/mL Random Vancomycin ug/mL HSV I IgG Ab index HSV II IgG index Blood Type Antibody Screen 07/22/17 07/22/17 07/22/17 Range/Units 20:01 20:01 20:01 WBC 18.9 H (4.8-10.8) K/uL RBC 2.95 L (4.40-5.90) Mil/uL Hgb 9.1 L (12.0-18.0) g/dL Hct 27.7 L (35.0-51.0) % MCV 94.1 H (80.0-94.0) fL MCH 31.0 (27.0-31.0) pg MCHC 32.9 L (33.0-37.0) g/dL RDW 16.4 H (11.5-14.5) % Plt Count 217 (130-400) K/uL MPV 8.0 (7.2-11.7) fL Neut % (Auto) 72.3 (50.0-75.0) % Lymph % (Auto) 10.1 L (20.0-40.0) % [place] % (Auto) 13.7 H (0.0-10.0) % Eos % (Auto) 3.6 (0.0-4.0) % Baso % (Auto) 0.3 (0.0-2.0) % Neut # (Auto) 13.7 H (1.8-7.0) K/uL Lymph # (Auto) 1.9 (1.0-4.3) K/uL [place] # (Auto) 2.6 H (0.0-0.8) K/uL Eos # (Auto) 0.7 (0.0-0.7) K/uL Baso # (Auto) 0.1 (0.0-0.2) K/uL PT 11.2 (9.7-12.2) SECONDS INR 1.0 APTT 35 H (21-34) SECONDS Puncture Site pCO2 (35-45) mm/Hg pO2 (80-100) mm/Hg HCO3 (21-28) mmol/L ABG pH (7.35-7.45) ABG Total CO2 (22-28) mmol/L ABG O2 Saturation (95-98) % ABG Base Excess (-2.0-3.0) mmol/L ABG Hemoglobin (11.7-17.4) g/dL ABG Carboxyhemoglobin (0.5-1.5) % POC ABG HHb (Measured) (0.0-5.0) % ABG Methemoglobin (0.0-3.0) % Navin Test A-a O2 Difference mm/Hg Respiratory Index Hgb O2 Saturation (95.0-98.0) % Vent Mode Mechanical Rate FiO2 % Tidal Volume PEEP Sodium 137 (132-148) mmol/L Potassium 3.9 (3.6-5.2) mmol/L Chloride 96 L (98-107) mmol/L Carbon Dioxide 33 H (22-30) mmol/L Anion Gap 13 (10-20) BUN 22 H (9-20) mg/dL Creatinine 3.2 H (0.8-1.5) mg/dL Est GFR ( Amer) 23 Est GFR (Non-Af Amer) 19 POC Glucose (mg/dL) (65-110) mg/dL Random Glucose 132 H (75-110) mg/dL Calcium 8.2 L (8.6-10.4) mg/dl Phosphorus (2.5-4.5) mg/dL Magnesium (1.6-2.3) mg/dL Total Bilirubin 0.8 (0.2-1.3) mg/dL AST 49 (17-59) U/L ALT 79 H (21-72) U/L Alkaline Phosphatase 234 H (38-126) U/L Total Protein 6.9 (6.3-8.3) g/dL Albumin 3.1 L (3.5-5.0) g/dL Globulin 3.8 (2.2-3.9) gm/dL Albumin/Globulin Ratio 0.8 L (1.0-2.1) Free T4 (0.78-2.19) ng/dL TSH 3rd Generation (0.46-4.68) mIU/L Prolactin 11.3 (3.7-17.9) ng/mL Random Vancomycin ug/mL HSV I IgG Ab index HSV II IgG index Blood Type Antibody Screen 07/22/17 07/22/17 07/20/17 Range/Units 20:01 17:47 06:38 WBC (4.8-10.8) K/uL RBC (4.40-5.90) Mil/uL Hgb (12.0-18.0) g/dL Hct (35.0-51.0) % MCV (80.0-94.0) fL MCH (27.0-31.0) pg MCHC (33.0-37.0) g/dL RDW (11.5-14.5) % Plt Count (130-400) K/uL MPV (7.2-11.7) fL Neut % (Auto) (50.0-75.0) % Lymph % (Auto) (20.0-40.0) % [place] % (Auto) (0.0-10.0) % Eos % (Auto) (0.0-4.0) % Baso % (Auto) (0.0-2.0) % Neut # (Auto) (1.8-7.0) K/uL Lymph # (Auto) (1.0-4.3) K/uL [place] # (Auto) (0.0-0.8) K/uL Eos # (Auto) (0.0-0.7) K/uL Baso # (Auto) (0.0-0.2) K/uL PT (9.7-12.2) SECONDS INR APTT (21-34) SECONDS Puncture Site pCO2 (35-45) mm/Hg pO2 (80-100) mm/Hg HCO3 (21-28) mmol/L ABG pH (7.35-7.45) ABG Total CO2 (22-28) mmol/L ABG O2 Saturation (95-98) % ABG Base Excess (-2.0-3.0) mmol/L ABG Hemoglobin (11.7-17.4) g/dL ABG Carboxyhemoglobin (0.5-1.5) % POC ABG HHb (Measured) (0.0-5.0) % ABG Methemoglobin (0.0-3.0) % Navin Test A-a O2 Difference mm/Hg Respiratory Index Hgb O2 Saturation (95.0-98.0) % Vent Mode Mechanical Rate FiO2 % Tidal Volume PEEP Sodium (132-148) mmol/L Potassium (3.6-5.2) mmol/L Chloride (98-107) mmol/L Carbon Dioxide (22-30) mmol/L Anion Gap (10-20) BUN (9-20) mg/dL Creatinine (0.8-1.5) mg/dL Est GFR ( Amer) Est GFR (Non-Af Amer) POC Glucose (mg/dL) 147 H (65-110) mg/dL Random Glucose (75-110) mg/dL Calcium (8.6-10.4) mg/dl Phosphorus (2.5-4.5) mg/dL Magnesium (1.6-2.3) mg/dL Total Bilirubin (0.2-1.3) mg/dL AST (17-59) U/L ALT (21-72) U/L Alkaline Phosphatase (38-126) U/L Total Protein (6.3-8.3) g/dL Albumin (3.5-5.0) g/dL Globulin (2.2-3.9) gm/dL Albumin/Globulin Ratio (1.0-2.1) Free T4 (0.78-2.19) ng/dL TSH 3rd Generation (0.46-4.68) mIU/L Prolactin (3.7-17.9) ng/mL Random Vancomycin 9.2 ug/mL HSV I IgG Ab 32.20 H index HSV II IgG <0.90 index Blood Type Antibody Screen Laboratory Results - last 24 hr 07/20/17 07/22/17 07/22/17 06:38 17:47 20:01 WBC RBC Hgb Hct MCV MCH MCHC RDW Plt Count MPV Neut % (Auto) Lymph % (Auto) [place] % (Auto) Eos % (Auto) Baso % (Auto) Neut # (Auto) Lymph # (Auto) [place] # (Auto) Eos # (Auto) Baso # (Auto) PT INR APTT Puncture Site pCO2 pO2 HCO3 ABG pH ABG Total CO2 ABG O2 Saturation ABG Base Excess ABG Hemoglobin ABG Carboxyhemoglobin POC ABG HHb (Measured) ABG Methemoglobin Navin Test A-a O2 Difference Respiratory Index Hgb O2 Saturation Vent Mode Mechanical Rate FiO2 Tidal Volume PEEP Sodium Potassium Chloride Carbon Dioxide Anion Gap BUN Creatinine Est GFR ( Amer) Est GFR (Non-Af Amer) POC Glucose (mg/dL) 147 H Random Glucose Calcium Phosphorus Magnesium Total Bilirubin AST ALT Alkaline Phosphatase Total Protein Albumin Globulin Albumin/Globulin Ratio Free T4 TSH 3rd Generation Prolactin Random Vancomycin 9.2 HSV I IgG Ab 32.20 H HSV II IgG <0.90 Blood Type Antibody Screen 07/22/17 07/22/17 07/22/17 20:01 20:01 20:01 WBC 18.9 H RBC 2.95 L Hgb 9.1 L Hct 27.7 L MCV 94.1 H MCH 31.0 MCHC 32.9 L RDW 16.4 H Plt Count 217 MPV 8.0 Neut % (Auto) 72.3 Lymph % (Auto) 10.1 L [place] % (Auto) 13.7 H Eos % (Auto) 3.6 Baso % (Auto) 0.3 Neut # (Auto) 13.7 H Lymph # (Auto) 1.9 [place] # (Auto) 2.6 H Eos # (Auto) 0.7 Baso # (Auto) 0.1 PT 11.2 INR 1.0 APTT 35 H Puncture Site pCO2 pO2 HCO3 ABG pH ABG Total CO2 ABG O2 Saturation ABG Base Excess ABG Hemoglobin ABG Carboxyhemoglobin POC ABG HHb (Measured) ABG Methemoglobin Navin Test A-a O2 Difference Respiratory Index Hgb O2 Saturation Vent Mode Mechanical Rate FiO2 Tidal Volume PEEP Sodium 137 Potassium 3.9 Chloride 96 L Carbon Dioxide 33 H Anion Gap 13 BUN 22 H Creatinine 3.2 H Est GFR ( Amer) 23 Est GFR (Non-Af Amer) 19 POC Glucose (mg/dL) Random Glucose 132 H Calcium 8.2 L Phosphorus Magnesium Total Bilirubin 0.8 AST 49 ALT 79 H Alkaline Phosphatase 234 H Total Protein 6.9 Albumin 3.1 L Globulin 3.8 Albumin/Globulin Ratio 0.8 L Free T4 TSH 3rd Generation Prolactin 11.3 Random Vancomycin HSV I IgG Ab HSV II IgG Blood Type Antibody Screen 07/22/17 07/23/17 07/23/17 20:25 00:07 05:25 WBC RBC Hgb Hct MCV MCH MCHC RDW Plt Count MPV Neut % (Auto) Lymph % (Auto) [place] % (Auto) Eos % (Auto) Baso % (Auto) Neut # (Auto) Lymph # (Auto) [place] # (Auto) Eos # (Auto) Baso # (Auto) PT INR APTT Puncture Site Rradial pCO2 39 pO2 191 H HCO3 30.2 H ABG pH 7.50 H ABG Total CO2 31.6 H ABG O2 Saturation 98.2 H ABG Base Excess 6.7 H ABG Hemoglobin 9.0 L ABG Carboxyhemoglobin 0.8 POC ABG HHb (Measured) 1.8 ABG Methemoglobin 0.8 Navin Test Pos A-a O2 Difference 117.0 Respiratory Index 0.6 Hgb O2 Saturation 96.6 Vent Mode Prvc Mechanical Rate 16 FiO2 50.0 Tidal Volume 500 PEEP 5 Sodium Potassium Chloride Carbon Dioxide Anion Gap BUN Creatinine Est GFR ( Amer) Est GFR (Non-Af Amer) POC Glucose (mg/dL) 138 H 211 H Random Glucose Calcium Phosphorus Magnesium Total Bilirubin AST ALT Alkaline Phosphatase Total Protein Albumin Globulin Albumin/Globulin Ratio Free T4 TSH 3rd Generation Prolactin Random Vancomycin HSV I IgG Ab HSV II IgG Blood Type Antibody Screen 07/23/17 07/23/17 07/23/17 05:29 06:04 06:04 WBC RBC Hgb Hct MCV MCH MCHC RDW Plt Count MPV Neut % (Auto) Lymph % (Auto) [place] % (Auto) Eos % (Auto) Baso % (Auto) Neut # (Auto) Lymph # (Auto) [place] # (Auto) Eos # (Auto) Baso # (Auto) PT INR APTT Puncture Site Rr pCO2 42 pO2 156 H HCO3 28.1 H ABG pH 7.44 ABG Total CO2 29.8 H ABG O2 Saturation 98.4 H ABG Base Excess 4.0 H ABG Hemoglobin 7.9 L ABG Carboxyhemoglobin 1.2 POC ABG HHb (Measured) 1.6 ABG Methemoglobin 0.9 Navin Test Pos A-a O2 Difference 77.0 Respiratory Index 0.5 Hgb O2 Saturation 96.4 Vent Mode Prvc Mechanical Rate 14 FiO2 40.0 Tidal Volume 450 PEEP 5 Sodium 135 Potassium 4.0 Chloride 98 Carbon Dioxide 27 Anion Gap 14 BUN 36 H Creatinine 5.0 H Est GFR ( Amer) 14 Est GFR (Non-Af Amer) 11 POC Glucose (mg/dL) Random Glucose 183 H Calcium 7.4 L Phosphorus 3.4 Magnesium 1.8 Total Bilirubin 0.5 AST 44 ALT 66 Alkaline Phosphatase 159 H D Total Protein 5.5 L Albumin 2.6 L Globulin 3.0 Albumin/Globulin Ratio 0.9 L Free T4 1.46 TSH 3rd Generation 4.02 Prolactin Random Vancomycin HSV I IgG Ab HSV II IgG Blood Type Antibody Screen 07/23/17 07/23/17 07/23/17 06:07 11:41 14:13 WBC 13.8 H RBC 2.42 L Hgb 7.7 L Hct 23.1 L MCV 95.1 H MCH 32.0 H MCHC 33.6 RDW 16.7 H Plt Count 178 MPV 8.6 Neut % (Auto) 69.9 Lymph % (Auto) 11.9 L [place] % (Auto) 14.1 H Eos % (Auto) 3.6 Baso % (Auto) 0.5 Neut # (Auto) 9.6 H Lymph # (Auto) 1.6 [place] # (Auto) 1.9 H Eos # (Auto) 0.5 Baso # (Auto) 0.1 PT INR APTT Puncture Site pCO2 pO2 HCO3 ABG pH ABG Total CO2 ABG O2 Saturation ABG Base Excess ABG Hemoglobin ABG Carboxyhemoglobin POC ABG HHb (Measured) ABG Methemoglobin [place] Test A-a O2 Difference Respiratory Index Hgb O2 Saturation Vent Mode Mechanical Rate FiO2 Tidal Volume PEEP Sodium Potassium Chloride Carbon Dioxide Anion Gap BUN Creatinine Est GFR ( Amer) Est GFR (Non-Af Amer) POC Glucose (mg/dL) 148 H Random Glucose Calcium Phosphorus Magnesium Total Bilirubin AST ALT Alkaline Phosphatase Total Protein Albumin Globulin Albumin/Globulin Ratio Free T4 TSH 3rd Generation Prolactin Random Vancomycin HSV I IgG Ab HSV II IgG Blood Type B POSITIVE Antibody Screen Negative Critical Care Progress Note - Nutrition Nutrition: Nutrition Category Date Time Status NPO Diet [DIET] Diets 07/20/17 Dinner Active Attending/Attestation - Attestation I have personally seen and examined this patient.: Yes I have fully participated in the care of the patient.: Yes I have reviewed all pertinent clinical information: Yes Notes (Text): 07/23/17 17:44 patient seen and examined in the intensive Care unit. atient was intubated last night for respiratory distress Continue IV antibiotics as per infectious disease possible lumbar puncture today Seen by neurology
--- NOTE | 2017-07-23 13:22 | CP.PCM.PN ---
Subjective - Date & Time of Evaluation Date of Evaluation: 07/23/17 Time of Evaluation: 13:17 - Subjective Subjective: Events noted. Has become unresponsive; intubated last PM due to increasing respiratory failure. s/p initial hemodialysis 07/22- for possible uremia from inadeqaute PD. Azotemia acceptable; lytes ok as well Hg dropped and to get blood transfusion Would recommend transfusion with repeat dialysis - scheduled for today. Discussed with , daughter. LP likely later; agree with this as there is no obvious etiology of unresponsiveness. Objective - Vital Signs/Intake and Output Vital Signs (last 24 hours): Temp Pulse Resp BP Pulse Ox 98.7 F 75 14 130/32 L 99 07/23/17 09:45 07/23/17 07:00 07/23/17 07:00 07/23/17 11:16 07/23/17 07:00 Intake and Output: 07/23/17 07/23/17 06:59 18:59 Intake Total 1432.0 106.8 Output Total 0 Balance 1432.0 106.8 - Medications Medications: Current Medications Albuterol/Ipratropium (Duoneb 3 Mg/0.5 Mg (3 Ml) Ud) 3 ml INH RQ6 [facility] Last Admin: 07/23/17 12:59 Dose: Not Given Artificial Tears (Artificial Tears) 0 ml OD Q3H PRN PRN Reason: Dry eyes Last Admin: 07/23/17 11:27 Dose: 1 drop Aspirin (Aspirin Chewable) 81 mg PO DAILY [facility] Last Admin: 07/23/17 11:16 Dose: 81 mg Calcium Acetate (Phoslo) 667 mg PO TIDCC [facility] Last Admin: 07/23/17 11:16 Dose: 667 mg Carvedilol (Coreg) 12.5 mg PO BID [facility] Last Admin: 07/23/17 11:16 Dose: 12.5 mg Clopidogrel Bisulfate (Plavix) 75 mg PO DAILY [facility] Last Admin: 07/23/17 11:09 Dose: Not Given Epoetin Kumar (Procrit) 10,000 unit SC MWF [facility] Last Admin: 07/21/17 09:58 Dose: 10,000 unit Meropenem 500 mg/ Sodium (Chloride) 100 mls @ 100 mls/hr IVPB Q12H [facility] PRN Reason: Protocol Last Admin: 07/23/17 11:15 Dose: 100 mls/hr Acyclovir 200 mg/ Sodium (Chloride) 100 mls @ 100 mls/hr IV Q12H [facility] PRN Reason: Protocol Last Admin: 07/23/17 00:00 Dose: 100 mls/hr Sodium Chloride (Sodium Chloride 0.9%) 1,000 mls @ 75 mls/hr IV .[id number] [facility] Last Admin: 07/23/17 10:19 Dose: Not Given Propofol (Diprivan) 1,000 mg in 100 mls @ 2.4 mls/hr IV .Q24H PRN; Protocol; 5 MCG/KG/MIN PRN Reason: TITRATE PER MD ORDER Last Titration: 07/23/17 09:00 Dose: 0 mcg/kg/min, 0 mls/hr Vancomycin/Sodium Chloride (Vancomycin 1 Gm/Ns 200 Ml) 1 gm in 200 mls @ 166.7 mls/hr IVPB TTS [facility] PRN Reason: Protocol Stop: 07/29/17 10:01 Insulin Human Regular (Novolin R) 0 unit SC Q6 [facility] PRN Reason: Protocol Last Admin: 07/23/17 12:46 Dose: Not Given Levothyroxine Sodium (Synthroid) 50 mcg PO DAILY@0630 [facility] Last Admin: 07/23/17 06:25 Dose: 50 mcg Modafinil (Provigil) 50 mg PO DAILY [facility] Vitamin A (Vitamin A & D Oint Ud Foilpak) 1 ea TOP BID [facility] Last Admin: 07/23/17 11:16 Dose: 1 ea - Labs Labs: 07/23/17 06:07 07/23/17 06:04 PT 11.2 SECONDS (9.7-12.2) 07/22/17 20:01 INR 1.0 07/22/17 20:01 APTT 35 SECONDS (21-34) H 07/22/17 20:01 - Constitutional Appears: No Acute Distress, Chronically Ill - Head Exam Head Exam: ATRAUMATIC, NORMAL INSPECTION - Neck Exam Neck Exam: Normal Inspection. absent: Tenderness - Respiratory Exam Respiratory Exam: Clear to Ausculation Bilateral, Respiratory Distress - Cardiovascular Exam Cardiovascular Exam: Irregular Rhythm, +S1 - GI/Abdominal Exam GI & Abdominal Exam: Soft. absent: Tenderness - Extremities Exam Extremities Exam: Normal Inspection. absent: Pedal Edema - Neurological Exam Neurological Exam: Altered - Skin Skin Exam: Dry, Warm Assessment and Plan (1) TIA (transient ischemic attack) Status: Acute (2) ESRD (end stage renal disease) Status: Acute (3) Heart block AV complete Status: Acute (4) Type 2 diabetes mellitus with diabetic nephropathy Status: Acute - Assessment and Plan (Free Text) Plan: repeat dialysis today recheck iron stores recommend blood transfusion with HD today recommend LP
--- NOTE | 2017-07-23 13:32 | CT ---
PROCEDURE: CT HEAD WITHOUT CONTRAST. HISTORY: ams COMPARISON: CT head dated 07/21/2017. TECHNIQUE: Axial computed tomography images were obtained through the head/brain without intravenous contrast. Radiation dose: Total exam DLP = 1190.8 mGy-cm. This CT exam was performed using one or more of the following dose reduction techniques: Automated exposure control, adjustment of the mA and/or kV according to patient size, and/or use of iterative reconstruction technique. FINDINGS: HEMORRHAGE: No intracranial hemorrhage. BRAIN: No mass effect or edema. Atrophy. Chronic microvascular ischemic changes. VENTRICLES: Unremarkable. No hydrocephalus. CALVARIUM: Unremarkable. PARANASAL SINUSES: Unremarkable as visualized. No significant inflammatory changes. MASTOID AIR CELLS: Unremarkable as visualized. No inflammatory changes. OTHER FINDINGS: None. IMPRESSION: No acute intracranial pathology.
[2017-07-23] MEDS: EPOETIN ALFA 10,000 UNIT/ML ML SC SCH (16:53)
--- NOTE | 2017-07-23 21:38 | CP.PCM.PN ---
Subjective - Date & Time of Evaluation Date of Evaluation: 07/23/17 Time of Evaluation: 18:40 - Subjective Subjective: Patient seen and examined at bedside. Patient is very lethargic, ROS unattainable. Physical Examination - Physical Exam Head: Positive for: Atraumatic, Normocephalic Pupils: Positive for: PERRL Extroacular Muscles: Positive for: EOMI Conjunctiva: Positive for: Normal Mouth: Positive for: Dry Neck: Positive for: Normal Range of Motion, Other (shiley catheter in place ) Respiratory/Chest: Positive for: Clear to Auscultation, Good Air Exchange. Negative for: Respiratory Distress Cardiovascular: Positive for: Tachycardic Abdomen: Positive for: Normal Bowel Sounds, Other (peritoneal catheter in place , c/d/i ) Back: Positive for: Normal Inspection Upper Extremity: Positive for: Normal Inspection, NORMAL PULSES, Neurovascularly Intact, Capillary Refill < 2s. Negative for: Cyanosis, Edema, Tenderness, Swelling, Erythema Lower Extremity: Positive for: Normal Inspection, NORMAL PULSES. Negative for: Edema, CALF TENDERNESS, Tenderness, Swelling, Erythema Neurological: Positive for: Other (right facial droop ) Skin: Positive for: Warm, Dry, Normal Color. Negative for: Rashes Psychiatric: Positive for: Alert, Lethargic Objective - Vital Signs/Intake and Output Vital Signs (last 24 hours): Temp Pulse Resp BP Pulse Ox 98.0 F 77 13 124/58 L 100 07/23/17 20:00 07/23/17 20:17 07/23/17 20:17 07/23/17 20:17 07/23/17 20:17 Intake and Output: 07/23/17 07/24/17 18:59 06:59 Intake Total 1371.4 235 Balance 1371.4 235 - Medications Medications: Current Medications Albuterol/Ipratropium (Duoneb 3 Mg/0.5 Mg (3 Ml) Ud) 3 ml INH RQ6 [facility] Last Admin: 07/23/17 20:25 Dose: 3 ml Artificial Tears (Artificial Tears) 0 ml OD Q3H PRN PRN Reason: Dry eyes Last Admin: 07/23/17 11:27 Dose: 1 drop Aspirin (Aspirin Chewable) 81 mg PO DAILY [facility] Last Admin: 07/23/17 11:16 Dose: 81 mg Calcium Acetate (Phoslo) 667 mg PO TIDCC [facility] Last Admin: 07/23/17 17:47 Dose: 667 mg Carvedilol (Coreg) 6.25 mg PO BID [facility] Last Admin: 07/23/17 17:47 Dose: 6.25 mg Clopidogrel Bisulfate (Plavix) 75 mg PO DAILY [facility] Last Admin: 07/23/17 11:09 Dose: Not Given Epoetin Kumar (Procrit) 10,000 unit SC MWF [facility] Last Admin: 07/23/17 16:53 Dose: 10,000 unit Meropenem 500 mg/ Sodium (Chloride) 100 mls @ 100 mls/hr IVPB Q12H [facility] PRN Reason: Protocol Last Admin: 07/23/17 11:15 Dose: 100 mls/hr Acyclovir 200 mg/ Sodium (Chloride) 100 mls @ 100 mls/hr IV Q12H [facility] PRN Reason: Protocol Last Admin: 07/23/17 14:27 Dose: 100 mls/hr Sodium Chloride (Sodium Chloride 0.9%) 1,000 mls @ 75 mls/hr IV .[id number] [facility] Last Admin: 07/23/17 10:19 Dose: Not Given Propofol (Diprivan) 1,000 mg in 100 mls @ 2.4 mls/hr IV .Q24H PRN; Protocol; 5 MCG/KG/MIN PRN Reason: TITRATE PER MD ORDER Last Titration: 07/23/17 09:00 Dose: 0 mcg/kg/min, 0 mls/hr Vancomycin/Sodium Chloride (Vancomycin 1 Gm/Ns 200 Ml) 1 gm in 200 mls @ 166.7 mls/hr IVPB TTS [facility] PRN Reason: Protocol Stop: 07/29/17 10:01 Insulin Human Regular (Novolin R) 0 unit SC Q6 [facility] PRN Reason: Protocol Last Admin: 07/23/17 18:21 Dose: Not Given Levothyroxine Sodium (Synthroid) 50 mcg PO DAILY@0630 [facility] Last Admin: 07/23/17 06:25 Dose: 50 mcg Modafinil (Provigil) 50 mg PO DAILY [facility] Vitamin A (Vitamin A & D Oint Ud Foilpak) 1 ea TOP BID [facility] Last Admin: 07/23/17 17:49 Dose: 1 ea - Labs Labs: 07/23/17 06:07 07/23/17 06:04 PT 11.2 SECONDS (9.7-12.2) 07/22/17 20:01 INR 1.0 07/22/17 20:01 APTT 35 SECONDS (21-34) H 07/22/17 20:01 Assessment and Plan - Assessment and Plan (Free Text) Assessment: This is a 76 year old male with HTN, DM, Hypercholesterimia, CAD, CABG with 5 vessel disease, ESRD on peritoneal dialysis, with symptomatic bradycardia s/p pacemaker placed [address] Valencia, hypothyroidism, who presented to the ED on 07/28 for dysphagia and slurred speech, was diagnosed with Yu's Palsy. Patient is with persistent AMS 2/2 Metabolic Encephalopathy. HD x 1 session on , s/p catheter placement 07/22/17. Plan: Neuro: Intubated 2/2 Respiratory Failure on Diprivan on PRVC 14/40/450/5 A: Metabolic Encephalopathy Neurology consulted - Dr. 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 As per Dr. Elizabeth - LP A: Right Yu's Palsy Neurology: Dr. Thompson - on board Imaging: - Head CT: 1. Confluent area of low attenuation within the right frontal subcortical white matter suggestive for chronic ischemic change. 2. Scattered areas of chronic microvascular ischemic change. 3. Prominent ventricles. 4. No evidence of acute intracranial hemorrhage. If there is persistent concern for acute ischemic change, correlation with MRI is recommended. - Head/ Neck CTA: There is nonvisualization origin left vertebral artery. Left vertebral artery reconstitutes at approximately the lower C5 level and is seen on as a patent vessel to the level of the C2 segment where the vertebral artery is no longer visualized and appears to be occluded. Findings could represent sequela of atherosclerotic disease or dissection. Clinical correlation recommended. Right vertebral artery is patent throughout. The common carotid arteries, carotid bifurcations and internal carotid artery is widely patent. There is a calcified atherosclerotic plaque both cavernous carotid segments. The the at anterior middle and posterior cerebral arteries are patent. No evidence of large aneurysm nor vascular malformation. - Not able to have MRI - due to recent PPM placement - 07/[address]: No intracranial mass, hemorrhage or evidence of acute infarct. Right frontal encephalomalacia, possibly old MCA territory infarct. Small nonspecific right mastoid effusion. Chronic white matter ischemic change. A: Hx CVA -ASA 81mg, Plavix 75mg (held), Crestor 10mg Cardio: A: HTN, CAD, CABG with 5 vessel disease, with symptomatic bradycardia s/p pacemaker placed [address] Valencia - Recent ECHO performed in Dr. Elizabeth's office as outpatient - ASA 81mg, Plavix 75mg, Coreg 12.5mg PO BID, Crestor 10mg Pulm: A: Acute Respiratory Failure - Intubated 07/22/17 Endo: A: Hypothyroidism - Resumed Synthroid 50 mcg A: DM - Accuchecks - ISS - medium - A1C 8.4 GI: A: Cirrhosis, etiology unclear Dr. Irvin consulted Renal: A: ESRD previously on peritoneal dialysis Nephrology consulted - Dr. Benson - right shiley catheter placed - s/p HD 07/22/17 - Procrit - Possible HD today? Heme/Onc A: Anemia of Chronic Disease - Baseline hemoglobin 9s - Continue with Procrit - Will be transfused 1 unit PRBC today - Stool occult ID: A: Sepsis 2/2 Otitis Media with right mastoid effusion? Mastoiditis? r/o Meningitis ID consulted - Dr. Gabe Villegas - Workup up ordered - Started on Merrem 500 Q12 (07/18) , Vanco 500mg Q48 (07/19), and Acyclovir 400mg Q12 (07/22) - Pending EEG Prophylaxis - Pepcid 2/2 to steroids - Heparin during HD - Diet: NPO, OGT in place, tube feedings - PT/OT
--- NOTE | 2017-07-23 23:04 | CP.PCM.PN ---
Subjective - Date & Time of Evaluation Date of Evaluation: 07/23/17 Time of Evaluation: 22:57 - Subjective Subjective: tmax 100.3, Patient intubated LAST NIGHT BECAUSE OF DYSPNEA, on ventilator. Lethargic, POORLY RESPONSIVE seen on hemodialysis today. ROS; NOT AVAILABLE LABS REVIEWED; wbc 13.8 IMPROVING. H/H DROPPED TO 7.7 LFTS IMPROVING. CULTURES NEGATIVE TO DATE VANCO RANDOM LEVEL 9.3 LAST NIGHT PATIENT GIVEN A DOSE OF VANCOMYCIN 1 G LAST NIGHT POST HEMODIALYSIS. PLAN. PATIENT WENT FOR REPEAT CT SCAN OF THE HEAD. TODAY. CONTINUE IV VANCOMYCIN 1 G POST-EACH HEMODIALYSIS TTS.. CONTINUE MERREM 500 MG EVERY 12 HOURLY. CONTINUE iv ACYCLOVIR 200 MG iv EVERY 12 HOURLY. PATIENT ALSO GETTING BLOOD TRANSFUSION ON HEMODIALYSIS. DISCUSSED WITH MEDICAL SUPPORT ASSISTANT DR LEGER. HOSPICE PHYSICIAN. DISCUSSED WITH SON AT BEDSIDE. CONSIDER LP, IF REPEAT CT SCAN OF HEAD UNREMARKABLE. TO DISCUSS WITH PMD/ AND NEURO , REASON FOR UNRESPONSIVENESS NOT CLEAR ! Objective - Vital Signs/Intake and Output Vital Signs (last 24 hours): Temp Pulse Resp BP Pulse Ox 98.0 F 78 14 139/51 L 100 07/23/17 20:00 07/23/17 22:01 07/23/17 22:01 07/23/17 22:01 07/23/17 22:01 Intake and Output: 07/23/17 07/24/17 18:59 06:59 Intake Total 1371.4 445 Balance 1371.4 445 - Medications Medications: Current Medications Albuterol/Ipratropium (Duoneb 3 Mg/0.5 Mg (3 Ml) Ud) 3 ml INH RQ6 [facility] Last Admin: 07/23/17 20:25 Dose: 3 ml Artificial Tears (Artificial Tears) 0 ml OD Q3H PRN PRN Reason: Dry eyes Last Admin: 07/23/17 11:27 Dose: 1 drop Aspirin (Aspirin Chewable) 81 mg PO DAILY [facility] Last Admin: 07/23/17 11:16 Dose: 81 mg Calcium Acetate (Phoslo) 667 mg PO TIDCC [facility] Last Admin: 07/23/17 17:47 Dose: 667 mg Carvedilol (Coreg) 6.25 mg PO BID [facility] Last Admin: 07/23/17 17:47 Dose: 6.25 mg Clopidogrel Bisulfate (Plavix) 75 mg PO DAILY [facility] Last Admin: 07/23/17 11:09 Dose: Not Given Epoetin Kumar (Procrit) 10,000 unit SC MWF [facility] Last Admin: 07/23/17 16:53 Dose: 10,000 unit Meropenem 500 mg/ Sodium (Chloride) 100 mls @ 100 mls/hr IVPB Q12H [facility] PRN Reason: Protocol Last Admin: 07/23/17 11:15 Dose: 100 mls/hr Acyclovir 200 mg/ Sodium (Chloride) 100 mls @ 100 mls/hr IV Q12H [facility] PRN Reason: Protocol Last Admin: 07/23/17 14:27 Dose: 100 mls/hr Sodium Chloride (Sodium Chloride 0.9%) 1,000 mls @ 75 mls/hr IV .[id number] [facility] Last Admin: 07/23/17 10:19 Dose: Not Given Propofol (Diprivan) 1,000 mg in 100 mls @ 2.4 mls/hr IV .Q24H PRN; Protocol; 5 MCG/KG/MIN PRN Reason: TITRATE PER MD ORDER Last Titration: 07/23/17 09:00 Dose: 0 mcg/kg/min, 0 mls/hr Vancomycin/Sodium Chloride (Vancomycin 1 Gm/Ns 200 Ml) 1 gm in 200 mls @ 166.7 mls/hr IVPB TTS [facility] PRN Reason: Protocol Stop: 07/29/17 10:01 Insulin Human Regular (Novolin R) 0 unit SC Q6 [facility] PRN Reason: Protocol Last Admin: 07/23/17 18:21 Dose: Not Given Levothyroxine Sodium (Synthroid) 50 mcg PO DAILY@0630 [facility] Last Admin: 07/23/17 06:25 Dose: 50 mcg Modafinil (Provigil) 50 mg PO DAILY [facility] Vitamin A (Vitamin A & D Oint Ud Foilpak) 1 ea TOP BID [facility] Last Admin: 07/23/17 17:49 Dose: 1 ea - Labs Labs: 07/23/17 06:07 07/23/17 06:04 PT 11.2 SECONDS (9.7-12.2) 07/22/17 20:01 INR 1.0 07/22/17 20:01 APTT 35 SECONDS (21-34) H 07/22/17 20:01 - Constitutional Appears: No Acute Distress, Chronically Ill - Head Exam Head Exam: NORMAL INSPECTION - Eye Exam Eye Exam: PERRL - ENT Exam ENT Exam: Mucous Membranes Moist - Neck Exam Neck Exam: Normal Inspection - Respiratory Exam Respiratory Exam: Clear to Ausculation Bilateral - Cardiovascular Exam Cardiovascular Exam: REGULAR RHYTHM, +S1, +S2 - GI/Abdominal Exam GI & Abdominal Exam: Soft, Normal Bowel Sounds - Extremities Exam Extremities Exam: absent: Calf Tenderness, Pedal Edema - Neurological Exam Neurological Exam: Altered - Skin Skin Exam: Pallor, Warm Assessment and Plan (1) Toxic metabolic encephalopathy Assessment & Plan: CONTINUE TO MONITOR NEURO STATUS. EEG --PENDING CONTINUE TO MONITOR ELECTROLYTES/LFTS . WILL DISCUSS WITH PMD, Status: Acute (2) Yu palsy Assessment & Plan: Patient has right Yu's palsy/history of right ear pain and headache Etiology not clear /mastoiditis//Madison Sosa syndrome vs occult MANAGER FREELANCE infection bacterial vs viral etiology unclear. Consider CT of the mastoid r/o mastoiditis Continue IV antibiotics IV MERREM 500MG IV Q 12HRLY. CONTINUE IV VANCOMYCIN --INCREASE DOSETO 1GM POST HD TTS (1 DOSE TONIGHT CONTINUE iv ACYCLOVIR 200 MG iv PIGGYBACK EVERY 12 HOURLY. Status: Acute (3) Type 2 diabetes mellitus with diabetic nephropathy Status: Acute (4) ESRD (end stage renal disease) Status: Acute (5) Heart block AV complete Status: Acute
[2017-07-24] MEDS: Albuterol-Ipratrop 3 mg / 0.5 (3 ml) UD INH SCH ×4 (01:15→20:18)
[2017-07-24 05:23] LABS: ABG ALLEN TEST POS; ARTERIAL BLOOD GAS HCO3 29.3 mmol/L (21-28); ARTERIAL BLOOD GAS HEMOGLOBIN 12.8 g/dL (11.7-17.4); ARTERIAL BLOOD GAS O2 SAT 98.3 % (95-98); ARTERIAL BLOOD GAS PCO2 41 mm/Hg (35-45); ARTERIAL BLOOD GAS PH 7.47 (7.35-7.45); ARTERIAL BLOOD GAS PO2 144 mm/Hg (80-100); ARTERIAL BLOOD GAS TCO2 31.1 mmol/L (22-28)
[2017-07-24 05:33] LABS: BASO # 0.1 K/uL (0.0-0.2); BASO % 0.7 % (0.0-2.0); EOS # 0.4 K/uL (0.0-0.7); EOS % 3.1 % (0.0-4.0); HEMOGLOBIN 8.8 g/dL (12.0-18.0); LYMPH # 1.6 K/uL (1.0-4.3); LYMPH % 11.2 % (20.0-40.0); MEAN CORPUSCULAR HEMOGLOBIN 30.6 pg (27.0-31.0); MEAN PLATELET VOLUME 8.2 fL (7.2-11.7); MONO # 1.7 K/uL (0.0-0.8); MONO % 11.8 % (0.0-10.0); NEUT # 10.4 K/uL (1.8-7.0); NEUT % 73.2 % (50.0-75.0); NRBC % 0.3 % (0.0-2.0); RBC 2.87 Mil/uL (4.40-5.90); RED CELL DISTRIBUTION WIDTH 16.6 % (11.5-14.5); WHITE BLOOD COUNT 14.2 K/uL (4.8-10.8)
[2017-07-24 05:55] LABS: ALB/GLOB RATIO 0.9 (1.0-2.1); ALBUMIN 2.5 g/dL (3.5-5.0); CALCIUM 7.7 mg/dl (8.6-10.4)
[2017-07-24] MEDS: (Novolin R) Insulin Human Regular 100 units/ml vial SC SCH ×4 (06:00→17:58)
[2017-07-24] MEDS: Levothyroxine 50 MCG TAB PO SCH (06:06)
[2017-07-24] MEDS: Modafinil 50 MG TAB PO SCH (09:14)
--- NOTE | 2017-07-24 09:14 | CP.PCM.PN ---
Subjective - Date & Time of Evaluation Date of Evaluation: 07/24/17 Time of Evaluation: 09:11 - Subjective Subjective: s/p HD 07/23- tolerated well; removed 1000ml remains on vent , unresponsive on IV fluids; GT feeds has elevated temp this AM- recent culture negative; on several antimicrobials labs acceptable will recheck iron stores s/p blood transfusion 1 unit prbcs 07/23 CXR- less congestion CT head negative appears same otherwise; LP being considered Objective - Vital Signs/Intake and Output Vital Signs (last 24 hours): Temp Pulse Resp BP Pulse Ox 101.4 F H 76 15 165/62 H 100 07/24/17 07:48 07/24/17 06:00 07/24/17 06:00 07/24/17 06:00 07/24/17 06:00 Intake and Output: 07/24/17 07/24/17 06:59 18:59 Intake Total 1485 315 Balance 1485 315 - Medications Medications: Current Medications Acetaminophen (Tylenol 325mg Tab) 650 mg PO Q6 PRN PRN Reason: Fever >100.4 F Last Admin: 07/24/17 07:48 Dose: 650 mg Albuterol/Ipratropium (Duoneb 3 Mg/0.5 Mg (3 Ml) Ud) 3 ml INH RQ6 [facility] Last Admin: 07/24/17 07:37 Dose: 3 ml Artificial Tears (Artificial Tears) 0 ml OD Q3H PRN PRN Reason: Dry eyes Last Admin: 07/23/17 11:27 Dose: 1 drop Aspirin (Aspirin Chewable) 81 mg PO DAILY [facility] Last Admin: 07/23/17 11:16 Dose: 81 mg Calcium Acetate (Phoslo) 667 mg PO TIDCC [facility] Last Admin: 07/24/17 07:48 Dose: 667 mg Carvedilol (Coreg) 6.25 mg PO BID [facility] Last Admin: 07/23/17 17:47 Dose: 6.25 mg Clopidogrel Bisulfate (Plavix) 75 mg PO DAILY [facility] Last Admin: 07/23/17 11:09 Dose: Not Given Epoetin Kumar (Procrit) 10,000 unit SC MWF [facility] Last Admin: 07/23/17 16:53 Dose: 10,000 unit Meropenem 500 mg/ Sodium (Chloride) 100 mls @ 100 mls/hr IVPB Q12H [facility] PRN Reason: Protocol Last Admin: 07/24/17 00:00 Dose: 100 mls/hr Acyclovir 200 mg/ Sodium (Chloride) 100 mls @ 100 mls/hr IV Q12H [facility] PRN Reason: Protocol Last Admin: 07/24/17 01:00 Dose: 100 mls/hr Sodium Chloride (Sodium Chloride 0.9%) 1,000 mls @ 75 mls/hr IV .[id number] [facility] Last Admin: 07/24/17 00:00 Dose: 75 mls/hr Propofol (Diprivan) 1,000 mg in 100 mls @ 2.4 mls/hr IV .Q24H PRN; Protocol; 5 MCG/KG/MIN PRN Reason: TITRATE PER MD ORDER Last Titration: 07/23/17 09:00 Dose: 0 mcg/kg/min, 0 mls/hr Vancomycin/Sodium Chloride (Vancomycin 1 Gm/Ns 200 Ml) 1 gm in 200 mls @ 166.7 mls/hr IVPB TTS [facility] PRN Reason: Protocol Stop: 07/29/17 10:01 Insulin Human Regular (Novolin R) 0 unit SC Q6 [facility] PRN Reason: Protocol Last Admin: 07/24/17 06:00 Dose: 4 unit Levothyroxine Sodium (Synthroid) 50 mcg PO DAILY@0630 [facility] Last Admin: 07/24/17 06:06 Dose: 50 mcg Modafinil (Provigil) 50 mg PO DAILY [facility] Vitamin A (Vitamin A & D Oint Ud Foilpak) 1 ea TOP BID [facility] Last Admin: 07/23/17 17:49 Dose: 1 ea - Labs Labs: 07/24/17 05:17 07/24/17 05:17 PT 11.2 SECONDS (9.7-12.2) 07/22/17 20:01 INR 1.0 07/22/17 20:01 APTT 35 SECONDS (21-34) H 07/22/17 20:01 - Constitutional Appears: Confused, Chronically Ill - Head Exam Head Exam: ATRAUMATIC, NORMAL INSPECTION - Neck Exam Neck Exam: Normal Inspection. absent: Tenderness - Respiratory Exam Respiratory Exam: Clear to Ausculation Bilateral, Respiratory Distress - Cardiovascular Exam Cardiovascular Exam: REGULAR RHYTHM, +S1 - GI/Abdominal Exam GI & Abdominal Exam: Soft. absent: Tenderness - Extremities Exam Extremities Exam: Normal Inspection. absent: Tenderness - Neurological Exam Neurological Exam: Altered - Skin Skin Exam: Dry, Warm Assessment and Plan (1) TIA (transient ischemic attack) Status: Acute (2) ESRD (end stage renal disease) Status: Acute (3) Heart block AV complete Status: Acute (4) Type 2 diabetes mellitus with diabetic nephropathy Status: Acute - Assessment and Plan (Free Text) Plan: Repeat dialysis in AM recheck iron stores IV ABs as per ID follow up chemistries closely
[2017-07-24] MEDS: Vitamins A & D Oint UD Foilpak TOP SCH ×2 (09:15→17:32)
[2017-07-24] MEDS ORDERED: Vancomycin 1 gm/NS 200 ml 1 GM/200 ML BAG IVPB SCH (10:00)
--- NOTE | 2017-07-24 11:14 | RAD ---
HISTORY: intubated COMPARISON: Portable chest 07/23/2017. FINDINGS: Endotracheal and nasogastric tubes are not significantly changed in position with well as right subclavian hemodialysis catheter. Pacemaker reiterated. LUNGS: No active pulmonary disease. PLEURA: Trace left pleural effusion in question. No right pleural effusion. No pneumothorax bilaterally. CARDIOVASCULAR: Stable cardiac silhouette. No pulmonary vascular congestion. OSSEOUS STRUCTURES: No significant abnormalities. VISUALIZED UPPER ABDOMEN: Normal. OTHER FINDINGS: None. IMPRESSION: Questionable interval trace of pleural effusion. No right pleural effusion. Remaining lung degroot clear bilaterally with stable cardiomediastinal silhouette.
[2017-07-24] MEDS: Meropenem 500 MG in Sodium Chloride 0.9% 100 ML IVPB SCH ×2 (11:21)
--- NOTE | 2017-07-24 12:35 | CARD ---
APPROVED REPORT EKG Measurement Heart [id number] P65 [id number] <Conclusion> Ventricular-paced rhythm Abnormal ECG
[2017-07-24] MEDS: Sodium Chloride 0.9% 1,000 ML IV SCH ×3 (13:04→17:29)
--- NOTE | 2017-07-24 14:11 | CP.CCUPN ---
<Tameka Chin - Last Filed: 07/24/17 14:08> CCU Subjective - Physician Review Subjective (Free Text): Patient seen and examined at bedside. Patient intubated on [facility] current settings : 14/40%/450/ 5;; responsive to painful stimuli. CCU Objective - Vital Signs / Intake & Output Intake and Output (Last 8hrs): Intake & Output 07/23/17 07/24/17 07/24/17 22:59 06:59 14:59 Intake Total 940 1040 575 Balance 940 1040 575 Intake: Intake, IV Amount 325 800 425 Left Antecubital 325 600 425 Left Antecubital side- 200 port Tube Feeding 240 240 150 Blood Product 325 Red Blood Cells Cpd As1 325 Lr Unit [id number] Other 50 Red Blood Cells Cpd As1 50 Lr Unit [id number] Other: # Voids Urine, Voided 0 # Bowel Movements 0 - Physical Exam Head: Positive for: Atraumatic, Normocephalic Pupils: Positive for: PERRL Extroacular Muscles: Positive for: EOMI Conjunctiva: Positive for: Normal Mouth: Positive for: Dry, Other (INTUBATED) Pharnyx: Positive for: Uvular Deviation (right) Neck: Positive for: Normal Range of Motion, Other (shiley catheter in place ) Respiratory/Chest: Positive for: Clear to Auscultation, Good Air Exchange. Negative for: Respiratory Distress Cardiovascular: Positive for: Tachycardic Abdomen: Positive for: Normal Bowel Sounds, Other (peritoneal catheter in place , c/d/i ) Back: Positive for: Normal Inspection Upper Extremity: Positive for: Normal Inspection, NORMAL PULSES, Neurovascularly Intact, Capillary Refill < 2s. Negative for: Cyanosis, Edema, Tenderness, Swelling, Erythema Lower Extremity: Positive for: Normal Inspection, NORMAL PULSES. Negative for: Edema, CALF TENDERNESS, Tenderness, Swelling, Erythema Neurological: Positive for: Other (right facial droop ) Skin: Positive for: Warm, Dry, Normal Color. Negative for: Rashes Psychiatric: Positive for: Alert, Lethargic - Medications Active Medications: Active Medications Generic Name Dose Route Start Last Admin Trade Name Freq PRN Reason Stop Dose Admin Acetaminophen 650 mg 07/24/17 07:42 07/24/17 07:48 Tylenol 325mg Tab PO 650 mg Q6 PRN Administration Fever >100.4 F Albuterol/Ipratropium 3 ml 07/13/17 14:00 07/24/17 13:07 Duoneb 3 Mg/0.5 Mg (3 Ml) Ud INH 3 ml RQ6 JAYLA Administration Artificial Tears 0 ml 07/13/17 22:00 07/23/17 11:27 Artificial Tears OD 1 drop Q3H PRN Administration Dry eyes Aspirin 81 mg 07/15/17 10:00 07/24/17 09:14 Aspirin Chewable PO 81 mg DAILY JAYLA Administration Calcium Acetate 667 mg 07/13/17 12:00 07/24/17 11:22 Phoslo PO 667 mg TIDCC JALYA Administration Carvedilol 6.25 mg 07/23/17 18:00 07/24/17 09:14 Coreg PO 6.25 mg BID JAYLA Administration Clopidogrel Bisulfate 75 mg 07/15/17 10:00 07/23/17 11:09 Plavix PO Not Given DAILY JAYLA Epoetin Kumar 10,000 unit 07/16/17 09:00 07/23/17 16:53 Procrit SC 10,000 unit MWF JAYLA Administration Meropenem 500 mg/ Sodium 100 mls @ 100 mls/hr 07/18/17 23:30 07/24/17 11:21 Chloride IVPB 100 mls/hr Q12H JAYLA Administration Protocol Acyclovir 200 mg/ Sodium 100 mls @ 100 mls/hr 07/22/17 13:00 07/24/17 13:05 Chloride IV 100 mls/hr Q12H JAYLA Administration Protocol Sodium Chloride 1,000 mls @ 75 mls/hr 07/22/17 20:30 07/24/17 13:04 Sodium Chloride 0.9% IV Not Given .[id number] JAYLA Propofol 1,000 mg in 100 mls @ 2.4 mls/hr 07/22/17 20:21 07/23/17 09:00 Diprivan IV 0 mcg/kg/min .Q24H PRN 0 mls/hr TITRATE PER MD ORDER Titration Protocol 5 MCG/KG/MIN Vancomycin/Sodium Chloride 1 gm in 200 mls @ 166.7 mls/hr 07/24/17 10:00 09:15 Vancomycin 1 Gm/Ns 200 Ml IVPB 07/29/17 10:01 166.7 mls/hr TTS JAYLA Administration Protocol Insulin Human Regular 0 unit 07/15/17 07:32 07/24/17 13:04 Novolin R SC Not Given Q6 JAYLA Protocol Levothyroxine Sodium 50 mcg 07/14/17 06:30 07/24/17 06:06 Synthroid PO 50 mcg DAILY@0630 JAYLA Administration Modafinil 50 mg 07/24/17 10:00 07/24/17 09:14 Provigil PO 50 mg DAILY JAYLA Administration Vitamin A 1 ea 07/19/17 18:00 07/24/17 09:15 Vitamin A & D Oint Ud Foilpak TOP 1 ea BID JAYLA Administration - Patient Studies Lab Studies: Microbiology Studies 07/24/17 08:11 Gram Stain - Final Sputum Induced 07/23/17 06:09 Blood Culture - Preliminary Blood-Thru Central Line NO GROWTH AFTER 24 HOURS 07/18/17 11:10 Blood Culture - Final Blood NO GROWTH AFTER 5 DAYS Lab Studies 07/24/17 07/24/17 07/24/17 Range/Units 13:49 12:04 10:45 WBC (4.8-10.8) K/uL RBC (4.40-5.90) Mil/uL Hgb (12.0-18.0) g/dL Hct (35.0-51.0) % MCV (80.0-94.0) fL MCH (27.0-31.0) pg MCHC (33.0-37.0) g/dL RDW (11.5-14.5) % Plt Count (130-400) K/uL MPV (7.2-11.7) fL Neut % (Auto) (50.0-75.0) % Lymph % (Auto) (20.0-40.0) % Grundy % (Auto) (0.0-10.0) % Eos % (Auto) (0.0-4.0) % Baso % (Auto) (0.0-2.0) % Neut # (Auto) (1.8-7.0) K/uL Lymph # (Auto) (1.0-4.3) K/uL Grundy # (Auto) (0.0-0.8) K/uL Eos # (Auto) (0.0-0.7) K/uL Baso # (Auto) (0.0-0.2) K/uL Puncture Site pCO2 (35-45) mm/Hg pO2 (80-100) mm/Hg HCO3 (21-28) mmol/L ABG pH (7.35-7.45) ABG Total CO2 (22-28) mmol/L ABG O2 Saturation (95-98) % ABG Base Excess (-2.0-3.0) mmol/L ABG Hemoglobin (11.7-17.4) g/dL ABG Carboxyhemoglobin (0.5-1.5) % POC ABG HHb (Measured) (0.0-5.0) % ABG Methemoglobin (0.0-3.0) % Navin Test A-a O2 Difference mm/Hg Respiratory Index Hgb O2 Saturation (95.0-98.0) % Vent Mode Mechanical Rate FiO2 % Tidal Volume PEEP Sodium (132-148) mmol/L Potassium (3.6-5.2) mmol/L Chloride (98-107) mmol/L Carbon Dioxide (22-30) mmol/L Anion Gap (10-20) BUN (9-20) mg/dL Creatinine (0.8-1.5) mg/dL Est GFR ( Amer) Est GFR (Non-Af Amer) POC Glucose (mg/dL) 154 H (65-110) mg/dL Random Glucose (75-110) mg/dL Calcium (8.6-10.4) mg/dl Phosphorus (2.5-4.5) mg/dL Magnesium (1.6-2.3) mg/dL % Saturation (20-55) Ferritin 985.0 ng/mL Total Bilirubin (0.2-1.3) mg/dL AST (17-59) U/L ALT (21-72) U/L Alkaline Phosphatase (38-126) U/L Total Protein (6.3-8.3) g/dL Albumin (3.5-5.0) g/dL Globulin (2.2-3.9) gm/dL Albumin/Globulin Ratio (1.0-2.1) Stool Occult Blood Negative (NEGATIVE) Blood Type Antibody Screen 07/24/17 07/24/17 07/24/17 Range/Units 10:45 05:54 05:17 WBC (4.8-10.8) K/uL RBC (4.40-5.90) Mil/uL Hgb (12.0-18.0) g/dL Hct (35.0-51.0) % MCV (80.0-94.0) fL MCH (27.0-31.0) pg MCHC (33.0-37.0) g/dL RDW (11.5-14.5) % Plt Count (130-400) K/uL MPV (7.2-11.7) fL Neut % (Auto) (50.0-75.0) % Lymph % (Auto) (20.0-40.0) % Grundy % (Auto) (0.0-10.0) % Eos % (Auto) (0.0-4.0) % Baso % (Auto) (0.0-2.0) % Neut # (Auto) (1.8-7.0) K/uL Lymph # (Auto) (1.0-4.3) K/uL Grundy # (Auto) (0.0-0.8) K/uL Eos # (Auto) (0.0-0.7) K/uL Baso # (Auto) (0.0-0.2) K/uL Puncture Site pCO2 (35-45) mm/Hg pO2 (80-100) mm/Hg HCO3 (21-28) mmol/L ABG pH (7.35-7.45) ABG Total CO2 (22-28) mmol/L ABG O2 Saturation (95-98) % ABG Base Excess (-2.0-3.0) mmol/L ABG Hemoglobin (11.7-17.4) g/dL ABG Carboxyhemoglobin (0.5-1.5) % POC ABG HHb (Measured) (0.0-5.0) % ABG Methemoglobin (0.0-3.0) % Navin Test A-a O2 Difference mm/Hg Respiratory Index Hgb O2 Saturation (95.0-98.0) % Vent Mode Mechanical Rate FiO2 % Tidal Volume PEEP Sodium 137 (132-148) mmol/L Potassium 4.0 (3.6-5.2) mmol/L Chloride 100 (98-107) mmol/L Carbon Dioxide 30 (22-30) mmol/L Anion Gap 11 (10-20) BUN 30 H (9-20) mg/dL Creatinine 3.9 H (0.8-1.5) mg/dL Est GFR ( Amer) 18 Est GFR (Non-Af Amer) 15 POC Glucose (mg/dL) 202 H (65-110) mg/dL Random Glucose 196 H (75-110) mg/dL Calcium 7.7 L (8.6-10.4) mg/dl Phosphorus 2.6 (2.5-4.5) mg/dL Magnesium 1.9 (1.6-2.3) mg/dL % Saturation 15 L (20-55) Ferritin ng/mL Total Bilirubin 0.7 (0.2-1.3) mg/dL AST 40 (17-59) U/L ALT 57 (21-72) U/L Alkaline Phosphatase 154 H (38-126) U/L Total Protein 5.4 L (6.3-8.3) g/dL Albumin 2.5 L (3.5-5.0) g/dL Globulin 2.9 (2.2-3.9) gm/dL Albumin/Globulin Ratio 0.9 L (1.0-2.1) Stool Occult Blood (NEGATIVE) Blood Type Antibody Screen 07/24/17 07/24/17 07/24/17 Range/Units 05:17 05:00 00:33 WBC 14.2 H (4.8-10.8) K/uL RBC 2.87 L (4.40-5.90) Mil/uL Hgb 8.8 L (12.0-18.0) g/dL Hct 26.7 L (35.0-51.0) % MCV 93.0 D (80.0-94.0) fL MCH 30.6 (27.0-31.0) pg MCHC 33.0 (33.0-37.0) g/dL RDW 16.6 H (11.5-14.5) % Plt Count 144 (130-400) K/uL MPV 8.2 (7.2-11.7) fL Neut % (Auto) 73.2 (50.0-75.0) % Lymph % (Auto) 11.2 L (20.0-40.0) % Grundy % (Auto) 11.8 H (0.0-10.0) % Eos % (Auto) 3.1 (0.0-4.0) % Baso % (Auto) 0.7 (0.0-2.0) % Neut # (Auto) 10.4 H (1.8-7.0) K/uL Lymph # (Auto) 1.6 (1.0-4.3) K/uL Grundy # (Auto) 1.7 H (0.0-0.8) K/uL Eos # (Auto) 0.4 (0.0-0.7) K/uL Baso # (Auto) 0.1 (0.0-0.2) K/uL Puncture Site Rr pCO2 41 (35-45) mm/Hg pO2 144 H (80-100) mm/Hg HCO3 29.3 H (21-28) mmol/L ABG pH 7.47 H (7.35-7.45) ABG Total CO2 31.1 H (22-28) mmol/L ABG O2 Saturation 98.3 H (95-98) % ABG Base Excess 5.6 H (-2.0-3.0) mmol/L ABG Hemoglobin 12.8 (11.7-17.4) g/dL ABG Carboxyhemoglobin 0.9 (0.5-1.5) % POC ABG HHb (Measured) 1.7 (0.0-5.0) % ABG Methemoglobin 0.9 (0.0-3.0) % Navin Test Pos A-a O2 Difference 90.0 mm/Hg Respiratory Index 0.6 Hgb O2 Saturation 96.5 (95.0-98.0) % Vent Mode Prvc Mechanical Rate 14 FiO2 40.0 % Tidal Volume 450 PEEP 5 Sodium (132-148) mmol/L Potassium (3.6-5.2) mmol/L Chloride (98-107) mmol/L Carbon Dioxide (22-30) mmol/L Anion Gap (10-20) BUN (9-20) mg/dL Creatinine (0.8-1.5) mg/dL Est GFR ( Amer) Est GFR (Non-Af Amer) POC Glucose (mg/dL) 175 H (65-110) mg/dL Random Glucose (75-110) mg/dL Calcium (8.6-10.4) mg/dl Phosphorus (2.5-4.5) mg/dL Magnesium (1.6-2.3) mg/dL % Saturation (20-55) Ferritin ng/mL Total Bilirubin (0.2-1.3) mg/dL AST (17-59) U/L ALT (21-72) U/L Alkaline Phosphatase (38-126) U/L Total Protein (6.3-8.3) g/dL Albumin (3.5-5.0) g/dL Globulin (2.2-3.9) gm/dL Albumin/Globulin Ratio (1.0-2.1) Stool Occult Blood (NEGATIVE) Blood Type Antibody Screen 07/23/17 07/23/17 Range/Units 17:53 14:13 WBC (4.8-10.8) K/uL RBC (4.40-5.90) Mil/uL Hgb (12.0-18.0) g/dL Hct (35.0-51.0) % MCV (80.0-94.0) fL MCH (27.0-31.0) pg MCHC (33.0-37.0) g/dL RDW (11.5-14.5) % Plt Count (130-400) K/uL MPV (7.2-11.7) fL Neut % (Auto) (50.0-75.0) % Lymph % (Auto) (20.0-40.0) % Grundy % (Auto) (0.0-10.0) % Eos % (Auto) (0.0-4.0) % Baso % (Auto) (0.0-2.0) % Neut # (Auto) (1.8-7.0) K/uL Lymph # (Auto) (1.0-4.3) K/uL Grundy # (Auto) (0.0-0.8) K/uL Eos # (Auto) (0.0-0.7) K/uL Baso # (Auto) (0.0-0.2) K/uL Puncture Site pCO2 (35-45) mm/Hg pO2 (80-100) mm/Hg HCO3 (21-28) mmol/L ABG pH (7.35-7.45) ABG Total CO2 (22-28) mmol/L ABG O2 Saturation (95-98) % ABG Base Excess (-2.0-3.0) mmol/L ABG Hemoglobin (11.7-17.4) g/dL ABG Carboxyhemoglobin (0.5-1.5) % POC ABG HHb (Measured) (0.0-5.0) % ABG Methemoglobin (0.0-3.0) % Navin Test A-a O2 Difference mm/Hg Respiratory Index Hgb O2 Saturation (95.0-98.0) % Vent Mode Mechanical Rate FiO2 % Tidal Volume PEEP Sodium (132-148) mmol/L Potassium (3.6-5.2) mmol/L Chloride (98-107) mmol/L Carbon Dioxide (22-30) mmol/L Anion Gap (10-20) BUN (9-20) mg/dL Creatinine (0.8-1.5) mg/dL Est GFR ( Amer) Est GFR (Non-Af Amer) POC Glucose (mg/dL) 107 (65-110) mg/dL Random Glucose (75-110) mg/dL Calcium (8.6-10.4) mg/dl Phosphorus (2.5-4.5) mg/dL Magnesium (1.6-2.3) mg/dL % Saturation (20-55) Ferritin ng/mL Total Bilirubin (0.2-1.3) mg/dL AST (17-59) U/L ALT (21-72) U/L Alkaline Phosphatase (38-126) U/L Total Protein (6.3-8.3) g/dL Albumin (3.5-5.0) g/dL Globulin (2.2-3.9) gm/dL Albumin/Globulin Ratio (1.0-2.1) Stool Occult Blood (NEGATIVE) Blood Type B POSITIVE Antibody Screen Negative Laboratory Results - last 24 hr 07/23/17 07/23/17 07/24/17 14:13 17:53 00:33 WBC RBC Hgb Hct MCV MCH MCHC RDW Plt Count MPV Neut % (Auto) Lymph % (Auto) Grundy % (Auto) Eos % (Auto) Baso % (Auto) Neut # (Auto) Lymph # (Auto) Grundy # (Auto) Eos # (Auto) Baso # (Auto) Puncture Site pCO2 pO2 HCO3 ABG pH ABG Total CO2 ABG O2 Saturation ABG Base Excess ABG Hemoglobin ABG Carboxyhemoglobin POC ABG HHb (Measured) ABG Methemoglobin Navin Test A-a O2 Difference Respiratory Index Hgb O2 Saturation Vent Mode Mechanical Rate FiO2 Tidal Volume PEEP Sodium Potassium Chloride Carbon Dioxide Anion Gap BUN Creatinine Est GFR ( Amer) Est GFR (Non-Af Amer) POC Glucose (mg/dL) 107 175 H Random Glucose Calcium Phosphorus Magnesium % Saturation Ferritin Total Bilirubin AST ALT Alkaline Phosphatase Total Protein Albumin Globulin Albumin/Globulin Ratio Stool Occult Blood Blood Type B POSITIVE Antibody Screen Negative 07/24/17 07/24/17 07/24/17 05:00 05:17 05:17 WBC 14.2 H RBC 2.87 L Hgb 8.8 L Hct 26.7 L MCV 93.0 D MCH 30.6 MCHC 33.0 RDW 16.6 H Plt Count 144 MPV 8.2 Neut % (Auto) 73.2 Lymph % (Auto) 11.2 L Grundy % (Auto) 11.8 H Eos % (Auto) 3.1 Baso % (Auto) 0.7 Neut # (Auto) 10.4 H Lymph # (Auto) 1.6 Grundy # (Auto) 1.7 H Eos # (Auto) 0.4 Baso # (Auto) 0.1 Puncture Site Rr pCO2 41 pO2 144 H HCO3 29.3 H ABG pH 7.47 H ABG Total CO2 31.1 H ABG O2 Saturation 98.3 H ABG Base Excess 5.6 H ABG Hemoglobin 12.8 ABG Carboxyhemoglobin 0.9 POC ABG HHb (Measured) 1.7 ABG Methemoglobin 0.9 Navin Test Pos A-a O2 Difference 90.0 Respiratory Index 0.6 Hgb O2 Saturation 96.5 Vent Mode Prvc Mechanical Rate 14 FiO2 40.0 Tidal Volume 450 PEEP 5 Sodium 137 Potassium 4.0 Chloride 100 Carbon Dioxide 30 Anion Gap 11 BUN 30 H Creatinine 3.9 H Est GFR ( Amer) 18 Est GFR (Non-Af Amer) 15 POC Glucose (mg/dL) Random Glucose 196 H Calcium 7.7 L Phosphorus 2.6 Magnesium 1.9 % Saturation Ferritin Total Bilirubin 0.7 AST 40 ALT 57 Alkaline Phosphatase 154 H Total Protein 5.4 L Albumin 2.5 L Globulin 2.9 Albumin/Globulin Ratio 0.9 L Stool Occult Blood Blood Type Antibody Screen 07/24/17 07/24/17 07/24/17 05:54 10:45 10:45 WBC RBC Hgb Hct MCV MCH MCHC RDW Plt Count MPV Neut % (Auto) Lymph % (Auto) Grundy % (Auto) Eos % (Auto) Baso % (Auto) Neut # (Auto) Lymph # (Auto) Grundy # (Auto) Eos # (Auto) Baso # (Auto) Puncture Site pCO2 pO2 HCO3 ABG pH ABG Total CO2 ABG O2 Saturation ABG Base Excess ABG Hemoglobin ABG Carboxyhemoglobin POC ABG HHb (Measured) ABG Methemoglobin Navin Test A-a O2 Difference Respiratory Index Hgb O2 Saturation Vent Mode Mechanical Rate FiO2 Tidal Volume PEEP Sodium Potassium Chloride Carbon Dioxide Anion Gap BUN Creatinine Est GFR ( Amer) Est GFR (Non-Af Amer) POC Glucose (mg/dL) 202 H Random Glucose Calcium Phosphorus Magnesium % Saturation 15 L Ferritin 985.0 Total Bilirubin AST ALT Alkaline Phosphatase Total Protein Albumin Globulin Albumin/Globulin Ratio Stool Occult Blood Blood Type Antibody Screen 07/24/17 07/24/17 12:04 13:49 WBC RBC Hgb Hct MCV MCH MCHC RDW Plt Count MPV Neut % (Auto) Lymph % (Auto) Grundy % (Auto) Eos % (Auto) Baso % (Auto) Neut # (Auto) Lymph # (Auto) Grundy # (Auto) Eos # (Auto) Baso # (Auto) Puncture Site pCO2 pO2 HCO3 ABG pH ABG Total CO2 ABG O2 Saturation ABG Base Excess ABG Hemoglobin ABG Carboxyhemoglobin POC ABG HHb (Measured) ABG Methemoglobin Navin Test A-a O2 Difference Respiratory Index Hgb O2 Saturation Vent Mode Mechanical Rate FiO2 Tidal Volume PEEP Sodium Potassium Chloride Carbon Dioxide Anion Gap BUN Creatinine Est GFR ( Amer) Est GFR (Non-Af Amer) POC Glucose (mg/dL) 154 H Random Glucose Calcium Phosphorus Magnesium % Saturation Ferritin Total Bilirubin AST ALT Alkaline Phosphatase Total Protein Albumin Globulin Albumin/Globulin Ratio Stool Occult Blood Negative Blood Type Antibody Screen Fingerstick Blood Sugar Results: 154 Critical Care Progress Note - Nutrition Nutrition: Nutrition Category Date Time Status NPO Diet [DIET] Diets 07/20/17 Dinner Active Assessment/Plan - Assessment and Plan (Free Text) Assessment: This is a 76 year old male with HTN, DM, Hypercholesterimia, CAD, CABG with 5 vessel disease, ESRD on peritoneal dialysis, with symptomatic bradycardia s/p pacemaker placed [address] Valencia, hypothyroidism, who presented to the ED on 07/28 for dysphagia and slurred speech, was diagnosed with Yu's Palsy. Patient is with persistent AMS 2/2 Metabolic Encephalopathy. HD x 2 session on , 07/23, s/p catheter placement 07/22/17. Plan: Neuro: Intubated 2/2 Respiratory Failure on Diprivan on PRVC 14/40/450/5 A: Metabolic Encephalopathy Neurology consulted - Dr. 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 A: Right Yu's Palsy Neurology: Dr. Thompson - on board Imaging: - Head CT: 1. Confluent area of low attenuation within the right frontal subcortical white matter suggestive for chronic ischemic change. 2. Scattered areas of chronic microvascular ischemic change. 3. Prominent ventricles. 4. No evidence of acute intracranial hemorrhage. If there is persistent concern for acute ischemic change, correlation with MRI is recommended. - Head/ Neck CTA: There is nonvisualization origin left vertebral artery. Left vertebral artery reconstitutes at approximately the lower C5 level and is seen on as a patent vessel to the level of the C2 segment where the vertebral artery is no longer visualized and appears to be occluded. Findings could represent sequela of atherosclerotic disease or dissection. Clinical correlation recommended. Right vertebral artery is patent throughout. The common carotid arteries, carotid bifurcations and internal carotid artery is widely patent. There is a calcified atherosclerotic plaque both cavernous carotid segments. The the at anterior middle and posterior cerebral arteries are patent. No evidence of large aneurysm nor vascular malformation. - Not able to have MRI - due to recent PPM placement - 07/[address]: No intracranial mass, hemorrhage or evidence of acute infarct. Right frontal encephalomalacia, possibly old MCA territory infarct. Small nonspecific right mastoid effusion. Chronic white matter ischemic change. A: Hx CVA -ASA 81mg, Plavix 75mg (held), Crestor 10mg Cardio: A: HTN, CAD, CABG with 5 vessel disease, with symptomatic bradycardia s/p pacemaker placed [address] Valencia - Recent ECHO performed in Dr. Elizabeth's office as outpatient - ASA 81mg, Plavix 75mg, Coreg 12.5mg PO BID, Crestor 10mg Pulm: A: Acute Respiratory Failure - Intubated 07/22/17 Endo: A: Hypothyroidism - Resumed Synthroid 50 mcg A: DM - Accuchecks - ISS - medium - A1C 8.4 GI: A: Cirrhosis, etiology unclear Dr. Irvin consulted Renal: A: ESRD previously on peritoneal dialysis Nephrology consulted - Dr. Benson - right shiley catheter placed - s/p HD 07/22 and 07/23 - Procrit Heme/Onc A: Anemia of Chronic Disease - Baseline hemoglobin 9s - Continue with Procrit - S/P transfused 1 unit PRBC 07/23 - Stool occult- negative ID: A: Sepsis 2/2 Otitis Media with right mastoid effusion? Mastoiditis? r/o Meningitis ID consulted - Dr. Gabe Villegas - Workup up ordered - negative to date - LP??? - Started on Merrem 500 Q12 (07/18) , Vanco 500mg Q48 (07/19), and Acyclovir 400mg Q12 (07/22) - Pending EEG Prophylaxis - Pepcid 03/14 to steroids - Heparin during HD - Diet: NPO, OGT in place, tube feedings - PT/OT DW with Tameka Almanza, PGY-1 <Amy Ortega M - Last Filed: 07/25/17 15:06> CCU Objective - Vital Signs / Intake & Output Vital Signs (Last 4 hours): Vital Signs Temp Pulse Pulse Resp BP BP Pulse Ox 07/25/17 14:00 79 16 100 07/25/17 13:41 81 18 101/83 100 07/25/17 13:00 79 23 100 07/25/17 12:42 76 20 122/65 100 07/25/17 12:24 75 20 140/65 100 07/25/17 12:20 97.9 F 75 75 20 134/68 134/68 100 07/25/17 12:08 75 19 147/72 100 07/25/17 12:05 147/72 07/25/17 12:00 99 F 76 22 100 07/25/17 11:53 76 23 160/67 H 100 06/15/18 11:50 160/67 H 07/25/17 11:39 75 22 167/71 H 100 07/25/17 11:35 167/71 H 07/25/17 11:23 75 22 156/67 H 07/25/17 11:20 156/67 H 07/25/17 11:08 73 17 148/65 07/25/17 11:05 148/65 Intake and Output (Last 8hrs): Intake & Output 07/25/17 07/25/17 07/25/17 06:59 14:59 22:59 Intake Total 320 650 Balance 320 650 Weight 169 lb 8.568 oz Intake: Intake, IV Amount 200 Left Antecubital side- 200 port Tube Feeding 320 320 Other 130 Other: # Bowel Movements 1 - Medications Active Medications: Active Medications Generic Name Dose Route Start Last Admin Trade Name Freq PRN Reason Stop Dose Admin Acetaminophen 650 mg 07/24/17 07:42 07/24/17 07:48 Tylenol 325mg Tab PO 650 mg Q6 PRN Administration Fever >100.4 F Albuterol/Ipratropium 3 ml 07/13/17 14:00 07/25/17 13:31 Duoneb 3 Mg/0.5 Mg (3 Ml) Ud INH 3 ml RQ6 JAYLA Administration Artificial Tears 0 ml 07/13/17 22:00 07/25/17 12:42 Artificial Tears OD 1 drop Q3H PRN Administration Dry eyes Aspirin 81 mg 07/15/17 10:00 07/25/17 12:37 Aspirin Chewable PO 81 mg DAILY JAYLA Administration Calcium Acetate 667 mg 07/13/17 12:00 07/25/17 12:37 Phoslo PO 667 mg TIDCC JAYLA Administration Carvedilol 6.25 mg 07/23/17 18:00 07/25/17 09:43 Coreg PO 6.25 mg BID JAYLA Administration Clopidogrel Bisulfate 75 mg 07/15/17 10:00 07/23/17 11:09 Plavix PO Not Given DAILY JAYLA Epoetin Kumar 10,000 unit 07/16/17 09:00 07/25/17 11:25 Procrit SC 10,000 unit MWF JAYLA Administration Famotidine 20 mg 07/25/17 12:15 07/25/17 12:37 Pepcid PO 20 mg DAILY JAYLA Administration Ferric Sodium Gluconate Complex 125 mg 07/26/17 10:00 Ferrlecit IVPB 08/03/17 10:01 DAILY JAYLA Meropenem 500 mg/ Sodium 100 mls @ 100 mls/hr 07/18/17 23:30 07/25/17 12:37 Chloride IVPB 100 mls/hr Q12H JAYLA Administration Protocol Acyclovir 200 mg/ Sodium 100 mls @ 100 mls/hr 07/22/17 13:00 07/25/17 13:56 Chloride IV 100 mls/hr Q12H JAYLA Administration Protocol Propofol 1,000 mg in 100 mls @ 2.4 mls/hr 07/22/17 20:21 07/23/17 09:00 Diprivan IV 0 mcg/kg/min .Q24H PRN 0 mls/hr TITRATE PER MD ORDER Titration Protocol 5 MCG/KG/MIN Vancomycin/Sodium Chloride 1 gm in 200 mls @ 166.7 mls/hr 07/28/17 09:00 Vancomycin 1 Gm/Ns 200 Ml IVPB 08/02/17 09:[facility] Vancomycin/Sodium Chloride 1 gm in 200 mls @ 133 mls/hr 07/26/17 13:00 Vancomycin 1 Gm/Ns 200 Ml IVPB 07/26/17 14:30 ONCE ONE Protocol Insulin Human Regular 0 unit 07/15/17 07:32 07/25/17 11:38 Novolin R SC 4 unit Q6 JAYLA Administration Protocol Levetiracetam 250 mg 07/24/17 18:30 07/25/17 12:37 Keppra PO 250 mg BID JAYLA Administration Levothyroxine Sodium 50 mcg 07/14/17 06:30 07/25/17 05:52 Synthroid PO 50 mcg DAILY@0630 JAYLA Administration Losartan Potassium 25 mg 07/25/17 15:00 Cozaar PO DAILY JAYLA Modafinil 50 mg 07/24/17 10:00 07/25/17 12:37 Provigil PO 50 mg DAILY JAYLA Administration Vitamin A 1 ea 07/19/17 18:00 07/25/17 09:43 Vitamin A & D Oint Ud Foilpak TOP 1 ea BID JAYLA Administration - Patient Studies Lab Studies: Microbiology Studies 07/23/17 06:09 Blood Culture - Preliminary Blood-Thru Central Line NO GROWTH AFTER 48 HOURS 07/24/17 08:11 Gram Stain - Final Sputum Induced Lab Studies 07/25/17 07/25/17 07/25/17 Range/Units 11:17 06:27 05:16 WBC (4.8-10.8) K/uL RBC (4.40-5.90) Mil/uL Hgb (12.0-18.0) g/dL Hct (35.0-51.0) % MCV (80.0-94.0) fL MCH (27.0-31.0) pg MCHC (33.0-37.0) g/dL RDW (11.5-14.5) % Plt Count (130-400) K/uL MPV (7.2-11.7) fL Neut % (Auto) (50.0-75.0) % Lymph % (Auto) (20.0-40.0) % Grundy % (Auto) (0.0-10.0) % Eos % (Auto) (0.0-4.0) % Baso % (Auto) (0.0-2.0) % Neut # (Auto) (1.8-7.0) K/uL Lymph # (Auto) (1.0-4.3) K/uL Grundy # (Auto) (0.0-0.8) K/uL Eos # (Auto) (0.0-0.7) K/uL Baso # (Auto) (0.0-0.2) K/uL Neutrophils % (Manual) (50-75) % Lymphocytes % (Manual) (20-40) % Monocytes % (Manual) (0-10) % Eosinophils % (Manual) (0-4) % Basophils % (Manual) (0-2) % Nucleated RBC % (0-0) % Toxic Granulation Platelet Estimate (NORMAL) Hypochromasia (manual) Poikilocytosis (manual Anisocytosis (manual) Puncture Site Lr pCO2 45 (35-45) mm/Hg pO2 155 H (80-100) mm/Hg HCO3 26.8 (21-28) mmol/L ABG pH 7.40 (7.35-7.45) ABG Total CO2 29.3 H (22-28) mmol/L ABG O2 Saturation 98.6 H (95-98) % ABG Base Excess 2.4 (-2.0-3.0) mmol/L ABG Hemoglobin 17.1 (11.7-17.4) g/dL ABG Carboxyhemoglobin 1.1 (0.5-1.5) % POC ABG HHb (Measured) 1.4 (0.0-5.0) % ABG Methemoglobin 0.8 (0.0-3.0) % Navin Test Pos A-a O2 Difference 74.0 mm/Hg Respiratory Index 0.5 Hgb O2 Saturation 96.7 (95.0-98.0) % Vent Mode Prvc Mechanical Rate 14 FiO2 40.0 % Tidal Volume 450 PEEP 5 Sodium 136 (132-148) mmol/L Potassium 4.0 (3.6-5.2) mmol/L Chloride 100 (98-107) mmol/L Carbon Dioxide 29 (22-30) mmol/L Anion Gap 11 (10-20) BUN 49 H (9-20) mg/dL Creatinine 5.4 H (0.8-1.5) mg/dL Est GFR ( Amer) 12 Est GFR (Non-Af Amer) 10 POC Glucose (mg/dL) 201 H (65-110) mg/dL Random Glucose 245 H (75-110) mg/dL Calcium 8.4 L (8.6-10.4) mg/dl Phosphorus 3.6 (2.5-4.5) mg/dL Magnesium 2.2 (1.6-2.3) mg/dL Total Bilirubin 0.7 (0.2-1.3) mg/dL AST 46 (17-59) U/L ALT 53 (21-72) U/L Alkaline Phosphatase 194 H D (38-126) U/L Total Protein 5.7 L (6.3-8.3) g/dL Albumin 2.6 L (3.5-5.0) g/dL Globulin 3.1 (2.2-3.9) gm/dL Albumin/Globulin Ratio 0.9 L (1.0-2.1) Complement C2 (1.6-3.5) mg/dL 07/25/17 07/25/17 07/25/17 Range/Units 05:09 05:00 00:08 WBC 14.5 H (4.8-10.8) K/uL RBC 2.99 L (4.40-5.90) Mil/uL Hgb 9.6 L (12.0-18.0) g/dL Hct 28.0 L (35.0-51.0) % MCV 93.8 (80.0-94.0) fL MCH 32.1 H (27.0-31.0) pg MCHC 34.3 (33.0-37.0) g/dL RDW 16.6 H (11.5-14.5) % Plt Count 156 (130-400) K/uL MPV 8.9 (7.2-11.7) fL Neut % (Auto) 79.1 H (50.0-75.0) % Lymph % (Auto) 8.3 L (20.0-40.0) % Grundy % (Auto) 8.5 (0.0-10.0) % Eos % (Auto) 3.3 (0.0-4.0) % Baso % (Auto) 0.8 (0.0-2.0) % Neut # (Auto) 11.5 H (1.8-7.0) K/uL Lymph # (Auto) 1.2 (1.0-4.3) K/uL Grundy # (Auto) 1.2 H (0.0-0.8) K/uL Eos # (Auto) 0.5 (0.0-0.7) K/uL Baso # (Auto) 0.1 (0.0-0.2) K/uL Neutrophils % (Manual) 81 H (50-75) % Lymphocytes % (Manual) 3 L (20-40) % Monocytes % (Manual) 9 (0-10) % Eosinophils % (Manual) 6 H (0-4) % Basophils % (Manual) 1 (0-2) % Nucleated RBC % 3 H (0-0) % Toxic Granulation Present Platelet Estimate Normal (NORMAL) Hypochromasia (manual) Slight Poikilocytosis (manual Slight Anisocytosis (manual) Slight Puncture Site pCO2 (35-45) mm/Hg pO2 (80-100) mm/Hg HCO3 (21-28) mmol/L ABG pH (7.35-7.45) ABG Total CO2 (22-28) mmol/L ABG O2 Saturation (95-98) % ABG Base Excess (-2.0-3.0) mmol/L ABG Hemoglobin (11.7-17.4) g/dL ABG Carboxyhemoglobin (0.5-1.5) % POC ABG HHb (Measured) (0.0-5.0) % ABG Methemoglobin (0.0-3.0) % Navin Test A-a O2 Difference mm/Hg Respiratory Index Hgb O2 Saturation (95.0-98.0) % Vent Mode Mechanical Rate FiO2 % Tidal Volume PEEP Sodium (132-148) mmol/L Potassium (3.6-5.2) mmol/L Chloride (98-107) mmol/L Carbon Dioxide (22-30) mmol/L Anion Gap (10-20) BUN (9-20) mg/dL Creatinine (0.8-1.5) mg/dL Est GFR ( Amer) Est GFR (Non-Af Amer) POC Glucose (mg/dL) 290 H 226 H (65-110) mg/dL Random Glucose (75-110) mg/dL Calcium (8.6-10.4) mg/dl Phosphorus (2.5-4.5) mg/dL Magnesium (1.6-2.3) mg/dL Total Bilirubin (0.2-1.3) mg/dL AST (17-59) U/L ALT (21-72) U/L Alkaline Phosphatase (38-126) U/L Total Protein (6.3-8.3) g/dL Albumin (3.5-5.0) g/dL Globulin (2.2-3.9) gm/dL Albumin/Globulin Ratio (1.0-2.1) Complement C2 (1.6-3.5) mg/dL 07/24/17 07/19/17 Range/Units 17:43 08:31 WBC (4.8-10.8) K/uL RBC (4.40-5.90) Mil/uL Hgb (12.0-18.0) g/dL Hct (35.0-51.0) % MCV (80.0-94.0) fL MCH (27.0-31.0) pg MCHC (33.0-37.0) g/dL RDW (11.5-14.5) % Plt Count (130-400) K/uL MPV (7.2-11.7) fL Neut % (Auto) (50.0-75.0) % Lymph % (Auto) (20.0-40.0) % Grundy % (Auto) (0.0-10.0) % Eos % (Auto) (0.0-4.0) % Baso % (Auto) (0.0-2.0) % Neut # (Auto) (1.8-7.0) K/uL Lymph # (Auto) (1.0-4.3) K/uL Grundy # (Auto) (0.0-0.8) K/uL Eos # (Auto) (0.0-0.7) K/uL Baso # (Auto) (0.0-0.2) K/uL Neutrophils % (Manual) (50-75) % Lymphocytes % (Manual) (20-40) % Monocytes % (Manual) (0-10) % Eosinophils % (Manual) (0-4) % Basophils % (Manual) (0-2) % Nucleated RBC % (0-0) % Toxic Granulation Platelet Estimate (NORMAL) Hypochromasia (manual) Poikilocytosis (manual Anisocytosis (manual) Puncture Site pCO2 (35-45) mm/Hg pO2 (80-100) mm/Hg HCO3 (21-28) mmol/L ABG pH (7.35-7.45) ABG Total CO2 (22-28) mmol/L ABG O2 Saturation (95-98) % ABG Base Excess (-2.0-3.0) mmol/L ABG Hemoglobin (11.7-17.4) g/dL ABG Carboxyhemoglobin (0.5-1.5) % POC ABG HHb (Measured) (0.0-5.0) % ABG Methemoglobin (0.0-3.0) % Navin Test A-a O2 Difference mm/Hg Respiratory Index Hgb O2 Saturation (95.0-98.0) % Vent Mode Mechanical Rate FiO2 % Tidal Volume PEEP Sodium (132-148) mmol/L Potassium (3.6-5.2) mmol/L Chloride (98-107) mmol/L Carbon Dioxide (22-30) mmol/L Anion Gap (10-20) BUN (9-20) mg/dL Creatinine (0.8-1.5) mg/dL Est GFR ( Amer) Est GFR (Non-Af Amer) POC Glucose (mg/dL) 236 H (65-110) mg/dL Random Glucose (75-110) mg/dL Calcium (8.6-10.4) mg/dl Phosphorus (2.5-4.5) mg/dL Magnesium (1.6-2.3) mg/dL Total Bilirubin (0.2-1.3) mg/dL AST (17-59) U/L ALT (21-72) U/L Alkaline Phosphatase (38-126) U/L Total Protein (6.3-8.3) g/dL Albumin (3.5-5.0) g/dL Globulin (2.2-3.9) gm/dL Albumin/Globulin Ratio (1.0-2.1) Complement C2 2.5 (1.6-3.5) mg/dL Laboratory Results - last 24 hr 07/19/17 07/24/17 07/25/17 08:31 17:43 00:08 WBC RBC Hgb Hct MCV MCH MCHC RDW Plt Count MPV Neut % (Auto) Lymph % (Auto) Grundy % (Auto) Eos % (Auto) Baso % (Auto) Neut # (Auto) Lymph # (Auto) Grundy # (Auto) Eos # (Auto) Baso # (Auto) Neutrophils % (Manual) Lymphocytes % (Manual) Monocytes % (Manual) Eosinophils % (Manual) Basophils % (Manual) Nucleated RBC % Toxic Granulation Platelet Estimate Hypochromasia (manual) Poikilocytosis (manual Anisocytosis (manual) Puncture Site pCO2 pO2 HCO3 ABG pH ABG Total CO2 ABG O2 Saturation ABG Base Excess ABG Hemoglobin ABG Carboxyhemoglobin POC ABG HHb (Measured) ABG Methemoglobin Navin Test A-a O2 Difference Respiratory Index Hgb O2 Saturation Vent Mode Mechanical Rate FiO2 Tidal Volume PEEP Sodium Potassium Chloride Carbon Dioxide Anion Gap BUN Creatinine Est GFR ( Amer) Est GFR (Non-Af Amer) POC Glucose (mg/dL) 236 H 226 H Random Glucose Calcium Phosphorus Magnesium Total Bilirubin AST ALT Alkaline Phosphatase Total Protein Albumin Globulin Albumin/Globulin Ratio Complement C2 2.5 07/25/17 07/25/17 07/25/17 05:00 05:09 05:16 WBC 14.5 H RBC 2.99 L Hgb 9.6 L Hct 28.0 L MCV 93.8 MCH 32.1 H MCHC 34.3 RDW 16.6 H Plt Count 156 MPV 8.9 Neut % (Auto) 79.1 H Lymph % (Auto) 8.3 L Grundy % (Auto) 8.5 Eos % (Auto) 3.3 Baso % (Auto) 0.8 Neut # (Auto) 11.5 H Lymph # (Auto) 1.2 Grundy # (Auto) 1.2 H Eos # (Auto) 0.5 Baso # (Auto) 0.1 Neutrophils % (Manual) 81 H Lymphocytes % (Manual) 3 L Monocytes % (Manual) 9 Eosinophils % (Manual) 6 H Basophils % (Manual) 1 Nucleated RBC % 3 H Toxic Granulation Present Platelet Estimate Normal Hypochromasia (manual) Slight Poikilocytosis (manual Slight Anisocytosis (manual) Slight Puncture Site Lr pCO2 45 pO2 155 H HCO3 26.8 ABG pH 7.40 ABG Total CO2 29.3 H ABG O2 Saturation 98.6 H ABG Base Excess 2.4 ABG Hemoglobin 17.1 ABG Carboxyhemoglobin 1.1 POC ABG HHb (Measured) 1.4 ABG Methemoglobin 0.8 Navin Test Pos A-a O2 Difference 74.0 Respiratory Index 0.5 Hgb O2 Saturation 96.7 Vent Mode Prvc Mechanical Rate 14 FiO2 40.0 Tidal Volume 450 PEEP 5 Sodium Potassium Chloride Carbon Dioxide Anion Gap BUN Creatinine Est GFR ( Amer) Est GFR (Non-Af Amer) POC Glucose (mg/dL) 290 H Random Glucose Calcium Phosphorus Magnesium Total Bilirubin AST ALT Alkaline Phosphatase Total Protein Albumin Globulin Albumin/Globulin Ratio Complement C2 07/25/17 07/25/17 06:27 11:17 WBC RBC Hgb Hct MCV MCH MCHC RDW Plt Count MPV Neut % (Auto) Lymph % (Auto) Grundy % (Auto) Eos % (Auto) Baso % (Auto) Neut # (Auto) Lymph # (Auto) Grundy # (Auto) Eos # (Auto) Baso # (Auto) Neutrophils % (Manual) Lymphocytes % (Manual) Monocytes % (Manual) Eosinophils % (Manual) Basophils % (Manual) Nucleated RBC % Toxic Granulation Platelet Estimate Hypochromasia (manual) Poikilocytosis (manual Anisocytosis (manual) Puncture Site pCO2 pO2 HCO3 ABG pH ABG Total CO2 ABG O2 Saturation ABG Base Excess ABG Hemoglobin ABG Carboxyhemoglobin POC ABG HHb (Measured) ABG Methemoglobin Navin Test A-a O2 Difference Respiratory Index Hgb O2 Saturation Vent Mode Mechanical Rate FiO2 Tidal Volume PEEP Sodium 136 Potassium 4.0 Chloride 100 Carbon Dioxide 29 Anion Gap 11 BUN 49 H Creatinine 5.4 H Est GFR ( Amer) 12 Est GFR (Non-Af Amer) 10 POC Glucose (mg/dL) 201 H Random Glucose 245 H Calcium 8.4 L Phosphorus 3.6 Magnesium 2.2 Total Bilirubin 0.7 AST 46 ALT 53 Alkaline Phosphatase 194 H D Total Protein 5.7 L Albumin 2.6 L Globulin 3.1 Albumin/Globulin Ratio 0.9 L Complement C2 Critical Care Progress Note - Nutrition Nutrition: Nutrition Category Date Time Status NPO Diet [DIET] Diets 07/20/17 Dinner Active Assessment/Plan - Assessment and Plan (Free Text) Plan: Patient seen and examined at bedside. Patient altered on ventilator. (+)febrile b/l air entry (+)S1 (+)S2 abd:soft, nt/nd ext: edema labs reveiwed A/P -AMS: r/o meningitis, continue rx as per ID -Hypoxic respiratory failuer: continue negative balance ESRD on HD: contineu HD ofr negative balance -continue dvt/pud ppx cc time 45 minutes prognosis guarded - Date & Time Date: 07/24/17 Time: 15:00
--- NOTE | 2017-07-24 18:27 | CP.PCM.PN ---
Subjective - Date & Time of Evaluation Date of Evaluation: 07/23/17 Time of Evaluation: 18:25 - Subjective Subjective: Patient's family at bedside. Spoke to them. Full spoke to patient's son also. Patient is currently on ventilator. Very poorly responding. He is on vent to later. He is also receiving dialysis. Post dialysis patient was able to open his eyes, but not focusing. On examination: Vital signs otherwise stable. Chest good air entry regular heart sounds nontender abdominal pedal edema Patient has some mild hemoptysis. Labs reviewed Nonspecific Assessment and recommendation: 77-year-old male with multiple medical history including hypertension CAD hypercholesterolemia CABG. End-stage renal disease now receiving hemodialysis. Peripheral vascular disease. Severe diabetic complication. Admitted initially with the CVA suspected. Peripheral vascular disease. Patient become more altered mental status, and metabolic encephalopathy likely. Underlying midbrain lesions cannot be ruled out. Patient is not able to get the MRI because of the recent pacemaker placement. LP at this time is on hold because patient is off Plavix since yesterday, if no mental status changes, will attempt to the lumbar puncture on Friday. Meanwhile we will continue the supportive treatment. Spoke to the patient's family in details. Objective - Vital Signs/Intake and Output Vital Signs (last 24 hours): Temp Pulse Resp BP Pulse Ox 97.9 F 65 15 152/54 H 100 07/24/17 16:00 07/24/17 16:00 07/24/17 16:00 07/24/17 15:00 07/24/17 16:00 Intake and Output: 07/24/17 07/24/17 06:59 18:59 Intake Total 1485 1255 Balance 1485 1255 - Medications Medications: Current Medications Acetaminophen (Tylenol 325mg Tab) 650 mg PO Q6 PRN PRN Reason: Fever >100.4 F Last Admin: 07/24/17 07:48 Dose: 650 mg Albuterol/Ipratropium (Duoneb 3 Mg/0.5 Mg (3 Ml) Ud) 3 ml INH RQ6 [facility] Last Admin: 07/24/17 13:07 Dose: 3 ml Artificial Tears (Artificial Tears) 0 ml OD Q3H PRN PRN Reason: Dry eyes Last Admin: 07/23/17 11:27 Dose: 1 drop Aspirin (Aspirin Chewable) 81 mg PO DAILY [facility] Last Admin: 07/24/17 09:14 Dose: 81 mg Calcium Acetate (Phoslo) 667 mg PO TIDCC [facility] Last Admin: 07/24/17 17:28 Dose: 667 mg Carvedilol (Coreg) 6.25 mg PO BID [facility] Last Admin: 07/24/17 17:28 Dose: 6.25 mg Clopidogrel Bisulfate (Plavix) 75 mg PO DAILY [facility] Last Admin: 07/23/17 11:09 Dose: Not Given Epoetin Kumar (Procrit) 10,000 unit SC MWF [facility] Last Admin: 07/23/17 16:53 Dose: 10,000 unit Meropenem 500 mg/ Sodium (Chloride) 100 mls @ 100 mls/hr IVPB Q12H [facility] PRN Reason: Protocol Last Admin: 07/24/17 11:21 Dose: 100 mls/hr Acyclovir 200 mg/ Sodium (Chloride) 100 mls @ 100 mls/hr IV Q12H [facility] PRN Reason: Protocol Last Admin: 07/24/17 13:05 Dose: 100 mls/hr Sodium Chloride (Sodium Chloride 0.9%) 1,000 mls @ 75 mls/hr IV .[id number] [facility] Last Admin: 07/24/17 17:29 Dose: 75 mls/hr Propofol (Diprivan) 1,000 mg in 100 mls @ 2.4 mls/hr IV .Q24H PRN; Protocol; 5 MCG/KG/MIN PRN Reason: TITRATE PER MD ORDER Last Titration: 07/23/17 09:00 Dose: 0 mcg/kg/min, 0 mls/hr Vancomycin/Sodium Chloride (Vancomycin 1 Gm/Ns 200 Ml) 1 gm in 200 mls @ 166.7 mls/hr IVPB TTS [facility] PRN Reason: Protocol Stop: 07/29/17 10:01 Last Admin: 07/24/17 09:15 Dose: 166.7 mls/hr Insulin Human Regular (Novolin R) 0 unit SC Q6 [facility] PRN Reason: Protocol Last Admin: 07/24/17 17:58 Dose: 4 unit Levothyroxine Sodium (Synthroid) 50 mcg PO DAILY@0630 [facility] Last Admin: 07/24/17 06:06 Dose: 50 mcg Modafinil (Provigil) 50 mg PO DAILY [facility] Last Admin: 07/24/17 09:14 Dose: 50 mg Vitamin A (Vitamin A & D Oint Ud Foilpak) 1 ea TOP BID [facility] Last Admin: 07/24/17 17:32 Dose: 1 ea - Labs Labs: 07/24/17 05:17 07/24/17 05:17 PT 11.2 SECONDS (9.7-12.2) 07/22/17 20:01 INR 1.0 07/22/17 20:01 APTT 35 SECONDS (21-34) H 07/22/17 20:01
--- NOTE | 2017-07-24 18:28 | CP.PCM.PN ---
Subjective - Date & Time of Evaluation Date of Evaluation: 07/24/17 Time of Evaluation: 18:27 - Subjective Subjective: Patient's family at bedside. Spoke to them. Full spoke to patient's son also. Patient is currently on ventilator. Very poorly responding. He is on vent to later. He is also receiving dialysis. Post dialysis patient was able to open his eyes, but not focusing. On examination: Vital signs otherwise stable. Chest good air entry regular heart sounds nontender abdominal pedal edema Patient has some mild hemoptysis. This afternoon patient was able to open his eyes, but there is some minimal twitching is noted. He is able to follow very slightly Labs reviewed Nonspecific Assessment and recommendation: 77-year-old male with multiple medical history including hypertension CAD hypercholesterolemia CABG. End-stage renal disease now receiving hemodialysis. Peripheral vascular disease. Severe diabetic complication. Admitted initially with the CVA suspected. Peripheral vascular disease. Patient become more altered mental status, and metabolic encephalopathy likely. Underlying midbrain lesions cannot be ruled out. Patient is not able to get the MRI because of the recent pacemaker placement. LP at this time is on hold because patient is off Plavix since yesterday, if no mental status changes, will attempt to the lumbar puncture on Friday. Meanwhile we will continue the supportive treatment. Spoke to the patient's family in details. EEG nonspecific. We will start the patient on Keppra. Neurology follow-up advised. Objective - Vital Signs/Intake and Output Vital Signs (last 24 hours): Temp Pulse Resp BP Pulse Ox 97.9 F 65 15 152/54 H 100 07/24/17 16:00 07/24/17 16:00 07/24/17 16:00 07/24/17 15:00 07/24/17 16:00 Intake and Output: 07/24/17 07/24/17 06:59 18:59 Intake Total 1485 1255 Balance 1485 1255 - Medications Medications: Current Medications Acetaminophen (Tylenol 325mg Tab) 650 mg PO Q6 PRN PRN Reason: Fever >100.4 F Last Admin: 07/24/17 07:48 Dose: 650 mg Albuterol/Ipratropium (Duoneb 3 Mg/0.5 Mg (3 Ml) Ud) 3 ml INH RQ6 [facility] Last Admin: 07/24/17 13:07 Dose: 3 ml Artificial Tears (Artificial Tears) 0 ml OD Q3H PRN PRN Reason: Dry eyes Last Admin: 07/23/17 11:27 Dose: 1 drop Aspirin (Aspirin Chewable) 81 mg PO DAILY [facility] Last Admin: 07/24/17 09:14 Dose: 81 mg Calcium Acetate (Phoslo) 667 mg PO TIDCC [facility] Last Admin: 07/24/17 17:28 Dose: 667 mg Carvedilol (Coreg) 6.25 mg PO BID [facility] Last Admin: 07/24/17 17:28 Dose: 6.25 mg Clopidogrel Bisulfate (Plavix) 75 mg PO DAILY [facility] Last Admin: 07/23/17 11:09 Dose: Not Given Epoetin Kumar (Procrit) 10,000 unit SC MWF [facility] Last Admin: 07/23/17 16:53 Dose: 10,000 unit Meropenem 500 mg/ Sodium (Chloride) 100 mls @ 100 mls/hr IVPB Q12H [facility] PRN Reason: Protocol Last Admin: 07/24/17 11:21 Dose: 100 mls/hr Acyclovir 200 mg/ Sodium (Chloride) 100 mls @ 100 mls/hr IV Q12H [facility] PRN Reason: Protocol Last Admin: 07/24/17 13:05 Dose: 100 mls/hr Sodium Chloride (Sodium Chloride 0.9%) 1,000 mls @ 75 mls/hr IV .[id number] [facility] Last Admin: 07/24/17 17:29 Dose: 75 mls/hr Propofol (Diprivan) 1,000 mg in 100 mls @ 2.4 mls/hr IV .Q24H PRN; Protocol; 5 MCG/KG/MIN PRN Reason: TITRATE PER MD ORDER Last Titration: 07/23/17 09:00 Dose: 0 mcg/kg/min, 0 mls/hr Vancomycin/Sodium Chloride (Vancomycin 1 Gm/Ns 200 Ml) 1 gm in 200 mls @ 166.7 mls/hr IVPB TTS [facility] PRN Reason: Protocol Stop: 07/29/17 10:01 Last Admin: 07/24/17 09:15 Dose: 166.7 mls/hr Insulin Human Regular (Novolin R) 0 unit SC Q6 [facility] PRN Reason: Protocol Last Admin: 07/24/17 17:58 Dose: 4 unit Levothyroxine Sodium (Synthroid) 50 mcg PO DAILY@0630 [facility] Last Admin: 07/24/17 06:06 Dose: 50 mcg Modafinil (Provigil) 50 mg PO DAILY [facility] Last Admin: 07/24/17 09:14 Dose: 50 mg Vitamin A (Vitamin A & D Oint Ud Foilpak) 1 ea TOP BID [facility] Last Admin: 07/24/17 17:32 Dose: 1 ea - Labs Labs: 07/24/17 05:17 07/24/17 05:17 PT 11.2 SECONDS (9.7-12.2) 07/22/17 20:01 INR 1.0 07/22/17 20:01 APTT 35 SECONDS (21-34) H 07/22/17 20:01
--- NOTE | 2017-07-24 22:22 | CP.PCM.PN ---
Subjective - Date & Time of Evaluation Date of Evaluation: 07/24/17 Time of Evaluation: 17:10 - Subjective Subjective: Patient seen and examined at bedside. Patient intubated Physical Examination - Physical Exam Head: Positive for: Atraumatic, Normocephalic Pupils: Positive for: PERRL Extroacular Muscles: Positive for: EOMI Conjunctiva: Positive for: Normal Mouth: Positive for: Dry, Other (INTUBATED) Pharnyx: Positive for: Uvular Deviation (right) Neck: Positive for: Normal Range of Motion, Other (shiley catheter in place ) Respiratory/Chest: Positive for: Clear to Auscultation, Good Air Exchange. Negative for: Respiratory Distress Cardiovascular: Positive for: Tachycardic Abdomen: Positive for: Normal Bowel Sounds, Other (peritoneal catheter in place , c/d/i ) Back: Positive for: Normal Inspection Upper Extremity: Positive for: Normal Inspection, NORMAL PULSES, Neurovascularly Intact, Capillary Refill < 2s. Negative for: Cyanosis, Edema, Tenderness, Swelling, Erythema Lower Extremity: Positive for: Normal Inspection, NORMAL PULSES. Negative for: Edema, CALF TENDERNESS, Tenderness, Swelling, Erythema Neurological: Positive for: Other (right facial droop ) Skin: Positive for: Warm, Dry, Normal Color. Negative for: Rashes Psychiatric: Positive for: Alert, Lethargic Objective - Vital Signs/Intake and Output Vital Signs (last 24 hours): Temp Pulse Resp BP Pulse Ox 97.0 F L 66 14 171/65 H 100 07/24/17 20:00 07/24/17 22:00 07/24/17 22:00 07/24/17 22:00 07/24/17 22:00 Intake and Output: 07/24/17 07/25/17 18:59 06:59 Intake Total 1360 160 Balance 1360 160 - Medications Medications: Current Medications Acetaminophen (Tylenol 325mg Tab) 650 mg PO Q6 PRN PRN Reason: Fever >100.4 F Last Admin: 07/24/17 07:48 Dose: 650 mg Albuterol/Ipratropium (Duoneb 3 Mg/0.5 Mg (3 Ml) Ud) 3 ml INH RQ6 [facility] Last Admin: 07/24/17 20:18 Dose: 3 ml Artificial Tears (Artificial Tears) 0 ml OD Q3H PRN PRN Reason: Dry eyes Last Admin: 07/23/17 11:27 Dose: 1 drop Aspirin (Aspirin Chewable) 81 mg PO DAILY [facility] Last Admin: 07/24/17 09:14 Dose: 81 mg Calcium Acetate (Phoslo) 667 mg PO TIDCC [facility] Last Admin: 07/24/17 17:28 Dose: 667 mg Carvedilol (Coreg) 6.25 mg PO BID [facility] Last Admin: 07/24/17 17:28 Dose: 6.25 mg Clopidogrel Bisulfate (Plavix) 75 mg PO DAILY [facility] Last Admin: 07/23/17 11:09 Dose: Not Given Epoetin Kumar (Procrit) 10,000 unit SC MWF [facility] Last Admin: 07/23/17 16:53 Dose: 10,000 unit Meropenem 500 mg/ Sodium (Chloride) 100 mls @ 100 mls/hr IVPB Q12H [facility] PRN Reason: Protocol Last Admin: 07/24/17 11:21 Dose: 100 mls/hr Acyclovir 200 mg/ Sodium (Chloride) 100 mls @ 100 mls/hr IV Q12H [facility] PRN Reason: Protocol Last Admin: 07/24/17 13:05 Dose: 100 mls/hr Propofol (Diprivan) 1,000 mg in 100 mls @ 2.4 mls/hr IV .Q24H PRN; Protocol; 5 MCG/KG/MIN PRN Reason: TITRATE PER MD ORDER Last Titration: 07/23/17 09:00 Dose: 0 mcg/kg/min, 0 mls/hr Vancomycin/Sodium Chloride (Vancomycin 1 Gm/Ns 200 Ml) 1 gm in 200 mls @ 166.7 mls/hr IVPB TTS [facility] PRN Reason: Protocol Stop: 07/29/17 10:01 Last Admin: 07/24/17 09:15 Dose: 166.7 mls/hr Insulin Human Regular (Novolin R) 0 unit SC Q6 [facility] PRN Reason: Protocol Last Admin: 07/24/17 17:58 Dose: 4 unit Levetiracetam (Keppra) 250 mg PO BID [facility] Last Admin: 07/24/17 19:00 Dose: 250 mg Levothyroxine Sodium (Synthroid) 50 mcg PO DAILY@0630 [facility] Last Admin: 07/24/17 06:06 Dose: 50 mcg Modafinil (Provigil) 50 mg PO DAILY [facility] Last Admin: 07/24/17 09:14 Dose: 50 mg Vitamin A (Vitamin A & D Oint Ud Foilpak) 1 ea TOP BID [facility] Last Admin: 07/24/17 17:32 Dose: 1 ea - Labs Labs: 07/24/17 05:17 07/24/17 05:17 PT 11.2 SECONDS (9.7-12.2) 07/22/17 20:01 INR 1.0 07/22/17 20:01 APTT 35 SECONDS (21-34) H 07/22/17 20:01 Assessment and Plan - Assessment and Plan (Free Text) Assessment: This is a 76 year old male with HTN, DM, Hypercholesterimia, CAD, CABG with 5 vessel disease, ESRD on peritoneal dialysis, with symptomatic bradycardia s/p pacemaker placed [address] Valencia, hypothyroidism, who presented to the ED on 07/28 for dysphagia and slurred speech, was diagnosed with Yu's Palsy. Patient is with persistent AMS 2/2 Metabolic Encephalopathy. HD x 2 session on , 07/23, s/p catheter placement 07/22/17. Plan: Neuro: Intubated 2/2 Respiratory Failure on Diprivan on PRVC 14/40/450/5 A: Metabolic Encephalopathy Neurology consulted - Dr. 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 A: Right Yu's Palsy Neurology: Dr. Thompson - on board Imaging: - Head CT: 1. Confluent area of low attenuation within the right frontal subcortical white matter suggestive for chronic ischemic change. 2. Scattered areas of chronic microvascular ischemic change. 3. Prominent ventricles. 4. No evidence of acute intracranial hemorrhage. If there is persistent concern for acute ischemic change, correlation with MRI is recommended. - Head/ Neck CTA: There is nonvisualization origin left vertebral artery. Left vertebral artery reconstitutes at approximately the lower C5 level and is seen on as a patent vessel to the level of the C2 segment where the vertebral artery is no longer visualized and appears to be occluded. Findings could represent sequela of atherosclerotic disease or dissection. Clinical correlation recommended. Right vertebral artery is patent throughout. The common carotid arteries, carotid bifurcations and internal carotid artery is widely patent. There is a calcified atherosclerotic plaque both cavernous carotid segments. The the at anterior middle and posterior cerebral arteries are patent. No evidence of large aneurysm nor vascular malformation. - Not able to have MRI - due to recent PPM placement - 07/[address]: No intracranial mass, hemorrhage or evidence of acute infarct. Right frontal encephalomalacia, possibly old MCA territory infarct. Small nonspecific right mastoid effusion. Chronic white matter ischemic change. A: Hx CVA -ASA 81mg, Plavix 75mg (held), Crestor 10mg Cardio: A: HTN, CAD, CABG with 5 vessel disease, with symptomatic bradycardia s/p pacemaker placed [address] Valencia - Recent ECHO performed in Dr. Elizabeth's office as outpatient - ASA 81mg, Plavix 75mg, Coreg 12.5mg PO BID, Crestor 10mg Pulm: A: Acute Respiratory Failure - Intubated 07/22/17 Endo: A: Hypothyroidism - Resumed Synthroid 50 mcg A: DM - Accuchecks - ISS - medium - A1C 8.4 GI: A: Cirrhosis, etiology unclear Dr. Irvin consulted Renal: A: ESRD previously on peritoneal dialysis Nephrology consulted - Dr. Benson - right shiley catheter placed - s/p HD 07/22 and 07/23 - Procrit Heme/Onc A: Anemia of Chronic Disease - Baseline hemoglobin 9s - Continue with Procrit - S/P transfused 1 unit PRBC 07/23 - Stool occult- negative ID: A: Sepsis 2/2 Otitis Media with right mastoid effusion? Mastoiditis? r/o Meningitis ID consulted - Dr. Gabe Villegas - Workup up ordered - negative to date - LP??? - Started on Merrem 500 Q12 (07/18) , Vanco 500mg Q48 (07/19), and Acyclovir 400mg Q12 (07/22) - Pending EEG Prophylaxis - Pepcid 2/2 to steroids - Heparin during HD - Diet: NPO, OGT in place, tube feedings - PT/OT
--- NOTE | 2017-07-24 22:54 | CP.PCM.PN ---
Subjective - Date & Time of Evaluation Date of Evaluation: 07/24/17 Time of Evaluation: 22:54 - Subjective Subjective: FEBRILE TMAX 101.5 VSS ON MECHANICAL VENTILATOR POORLY RESPONSIVE ON iv ANTIBIOTICS. NEURO STATUS UNCHANGED. LABS NOTED. BLOOD CULTURES 07/23/17 -VE GROWTH FOR 24 HOURS. SERUM FERRITIN HIGH- ACUTE PHASE REACTANT CASE DISCUSSED WITH PMD . CONTEMPLATING LP. CONTINUE iv ANTIBIOTICS. F/U REPEAT BLOOD CULTURES. Objective - Vital Signs/Intake and Output Vital Signs (last 24 hours): Temp Pulse Resp BP Pulse Ox 97.0 F L 66 14 171/65 H 100 07/24/17 20:00 07/24/17 22:00 07/24/17 22:00 07/24/17 22:00 07/24/17 22:00 Intake and Output: 07/24/17 07/25/17 18:59 06:59 Intake Total 1360 160 Balance 1360 160 - Medications Medications: Current Medications Acetaminophen (Tylenol 325mg Tab) 650 mg PO Q6 PRN PRN Reason: Fever >100.4 F Last Admin: 07/24/17 07:48 Dose: 650 mg Albuterol/Ipratropium (Duoneb 3 Mg/0.5 Mg (3 Ml) Ud) 3 ml INH RQ6 [facility] Last Admin: 07/24/17 20:18 Dose: 3 ml Artificial Tears (Artificial Tears) 0 ml OD Q3H PRN PRN Reason: Dry eyes Last Admin: 07/23/17 11:27 Dose: 1 drop Aspirin (Aspirin Chewable) 81 mg PO DAILY [facility] Last Admin: 07/24/17 09:14 Dose: 81 mg Calcium Acetate (Phoslo) 667 mg PO TIDCC [facility] Last Admin: 07/24/17 17:28 Dose: 667 mg Carvedilol (Coreg) 6.25 mg PO BID [facility] Last Admin: 07/24/17 17:28 Dose: 6.25 mg Clopidogrel Bisulfate (Plavix) 75 mg PO DAILY [facility] Last Admin: 07/23/17 11:09 Dose: Not Given Epoetin Kumar (Procrit) 10,000 unit SC MWF [facility] Last Admin: 07/23/17 16:53 Dose: 10,000 unit Meropenem 500 mg/ Sodium (Chloride) 100 mls @ 100 mls/hr IVPB Q12H [facility] PRN Reason: Protocol Last Admin: 07/24/17 11:21 Dose: 100 mls/hr Acyclovir 200 mg/ Sodium (Chloride) 100 mls @ 100 mls/hr IV Q12H [facility] PRN Reason: Protocol Last Admin: 07/24/17 13:05 Dose: 100 mls/hr Propofol (Diprivan) 1,000 mg in 100 mls @ 2.4 mls/hr IV .Q24H PRN; Protocol; 5 MCG/KG/MIN PRN Reason: TITRATE PER MD ORDER Last Titration: 07/23/17 09:00 Dose: 0 mcg/kg/min, 0 mls/hr Vancomycin/Sodium Chloride (Vancomycin 1 Gm/Ns 200 Ml) 1 gm in 200 mls @ 166.7 mls/hr IVPB TTS [facility] PRN Reason: Protocol Stop: 07/29/17 10:01 Last Admin: 07/24/17 09:15 Dose: 166.7 mls/hr Insulin Human Regular (Novolin R) 0 unit SC Q6 [facility] PRN Reason: Protocol Last Admin: 07/24/17 17:58 Dose: 4 unit Levetiracetam (Keppra) 250 mg PO BID [facility] Last Admin: 07/24/17 19:00 Dose: 250 mg Levothyroxine Sodium (Synthroid) 50 mcg PO DAILY@0630 [facility] Last Admin: 07/24/17 06:06 Dose: 50 mcg Modafinil (Provigil) 50 mg PO DAILY [facility] Last Admin: 07/24/17 09:14 Dose: 50 mg Vitamin A (Vitamin A & D Oint Ud Foilpak) 1 ea TOP BID [facility] Last Admin: 07/24/17 17:32 Dose: 1 ea - Labs Labs: 07/24/17 05:17 07/24/17 05:17 PT 11.2 SECONDS (9.7-12.2) 07/22/17 20:01 INR 1.0 07/22/17 20:01 APTT 35 SECONDS (21-34) H 07/22/17 20:01 - Constitutional Appears: No Acute Distress, Chronically Ill - Eye Exam Eye Exam: PERRL - ENT Exam ENT Exam: Mucous Membranes Moist - Neck Exam Neck Exam: Normal Inspection. absent: Thyromegaly - Respiratory Exam Respiratory Exam: Decreased Breath Sounds, NORMAL BREATHING PATTERN - Cardiovascular Exam Cardiovascular Exam: REGULAR RHYTHM, +S1, +S2 - GI/Abdominal Exam GI & Abdominal Exam: Soft, Normal Bowel Sounds. absent: Tenderness - Extremities Exam Extremities Exam: absent: Calf Tenderness, Pedal Edema - Neurological Exam Neurological Exam: Altered - Skin Skin Exam: Warm Assessment and Plan (1) Toxic metabolic encephalopathy Assessment & Plan: CT HEAD REPEAT -UNREMARKABLE. CONTINUE IV VANCOMYCIN 1 G POST-EACH HEMODIALYSIS TTS.. CONTINUE MERREM 500 MG EVERY 12 HOURLY. CONTINUE iv ACYCLOVIR 200 MG iv EVERY 12 HOURLY. Status: Acute (2) Yu palsy Status: Acute (3) Type 2 diabetes mellitus with diabetic nephropathy Status: Acute (4) ESRD (end stage renal disease) Assessment & Plan: HEMODIALYSIS TTS. Status: Acute (5) Heart block AV complete Status: Acute
[2017-07-25] MEDS: Albuterol-Ipratrop 3 mg / 0.5 (3 ml) UD INH SCH ×4 (01:36→19:41)
[2017-07-25] MEDS: (Novolin R) Insulin Human Regular 100 units/ml vial SC SCH ×4 (05:14→18:18)
[2017-07-25 05:21] LABS: ABG ALLEN TEST POS; ARTERIAL BLOOD GAS HCO3 26.8 mmol/L (21-28); ARTERIAL BLOOD GAS HEMOGLOBIN 17.1 g/dL (11.7-17.4); ARTERIAL BLOOD GAS O2 SAT 98.6 % (95-98); ARTERIAL BLOOD GAS PCO2 45 mm/Hg (35-45); ARTERIAL BLOOD GAS PO2 155 mm/Hg (80-100); ARTERIAL BLOOD GAS TCO2 29.3 mmol/L (22-28)
[2017-07-25] MEDS: Levothyroxine 50 MCG TAB PO SCH (05:52)
[2017-07-25 06:36] LABS: BASO # 0.1 K/uL (0.0-0.2); BASO % 0.8 % (0.0-2.0); EOS # 0.5 K/uL (0.0-0.7); EOS % 3.3 % (0.0-4.0); HEMOGLOBIN 9.6 g/dL (12.0-18.0); LYMPH # 1.2 K/uL (1.0-4.3); LYMPH % 8.3 % (20.0-40.0); MEAN CELL VOLUME 93.8 fL (80.0-94.0); MEAN CORPUSCULAR HEMOGLOBIN 32.1 pg (27.0-31.0); MEAN CORPUSCULAR HGB CONC 34.3 g/dL (33.0-37.0); MEAN PLATELET VOLUME 8.9 fL (7.2-11.7); MONO # 1.2 K/uL (0.0-0.8); MONO % 8.5 % (0.0-10.0); NEUT # 11.5 K/uL (1.8-7.0); NEUT % 79.1 % (50.0-75.0); NRBC % 0.5 % (0.0-2.0); PLATELET COUNT 156 K/uL (130-400); RBC 2.99 Mil/uL (4.40-5.90); RED CELL DISTRIBUTION WIDTH 16.6 % (11.5-14.5); WHITE BLOOD COUNT 14.5 K/uL (4.8-10.8)
[2017-07-25 06:49] LABS: ALB/GLOB RATIO 0.9 (1.0-2.1); ALBUMIN 2.6 g/dL (3.5-5.0); CALCIUM 8.4 mg/dl (8.6-10.4)
[2017-07-25 08:20] LABS: ANISOCYTOSIS SLIGHT; BASOPHIL 1 % (0-2); EOSINOPHIL 6 % (0-4); HYPOCHROMIC SLIGHT; LYMPHOCYTE 3 % (20-40); MONOCYTE 9 % (0-10); NEUTROPHIL 81 % (50-75); NUCLEATED RED BLOOD CELL 3 % (0-0); PLATELET ESTIMATE NORMAL (NORMAL); POIKILOCYTOSIS SLIGHT; TOTAL CELLS COUNTED 100
[2017-07-25 08:21] LABS: TOXIC GRANULATION PRESENT
--- NOTE | 2017-07-25 08:30 | RAD ---
HISTORY: intubated COMPARISON: 07/24/2017. FINDINGS: The endotracheal tube terminates 3.7 cm proximal to the cookie. The nasogastric tube terminates in the stomach. LUNGS: The lungs are clear. There is airspace disease in the left lower lobe. PLEURA: There is blunting of both costophrenic angles. No pneumothorax. CARDIOVASCULAR: Again seen is moderate cardiomegaly. There is stable position of left-sided pacemaker. OSSEOUS STRUCTURES: No significant abnormalities. VISUALIZED UPPER ABDOMEN: Normal. OTHER FINDINGS: None. IMPRESSION: Stable position of endotracheal and nasogastric tubes. Suspect left lower lobe atelectasis/pneumonia and small pleural effusions.
[2017-07-25] MEDS: Vitamins A & D Oint UD Foilpak TOP SCH ×2 (09:43→17:46)
[2017-07-25] MEDS: EPOETIN ALFA 10,000 UNIT/ML ML SC SCH (11:25)
[2017-07-25] MEDS: Modafinil 50 MG TAB PO SCH (12:37)
[2017-07-25] MEDS: Meropenem 500 MG in Sodium Chloride 0.9% 100 ML IVPB SCH ×3 (12:37→23:00)
[2017-07-25] MEDS: Aritificial Tears (15ml) OD PRN ×2 (12:42→17:46)
--- NOTE | 2017-07-25 12:42 | CP.PCM.PN ---
Subjective - Date & Time of Evaluation Date of Evaluation: 07/25/17 Time of Evaluation: 12:39 - Subjective Subjective: s/p dialysis now- UF 1500ml BP stable around 145/70 Afebrile now Opens eyes when spoken to- appears more responsive Hg low; TSAT 15%, ferritin elevated spoke with - advised that aggressive measures are being done to optimize dialysis efforts Objective - Vital Signs/Intake and Output Vital Signs (last 24 hours): Temp Pulse Resp BP Pulse Ox 97.9 F 75 20 134/68 100 07/25/17 12:20 07/25/17 12:20 07/25/17 12:20 07/25/17 12:20 07/25/17 12:20 Intake and Output: 07/25/17 07/25/17 06:59 18:59 Intake Total 480 330 Balance 480 330 - Medications Medications: Current Medications Acetaminophen (Tylenol 325mg Tab) 650 mg PO Q6 PRN PRN Reason: Fever >100.4 F Last Admin: 07/24/17 07:48 Dose: 650 mg Albuterol/Ipratropium (Duoneb 3 Mg/0.5 Mg (3 Ml) Ud) 3 ml INH RQ6 [facility] Last Admin: 07/25/17 07:38 Dose: 3 ml Artificial Tears (Artificial Tears) 0 ml OD Q3H PRN PRN Reason: Dry eyes Last Admin: 07/23/17 11:27 Dose: 1 drop Aspirin (Aspirin Chewable) 81 mg PO DAILY [facility] Last Admin: 07/24/17 09:14 Dose: 81 mg Calcium Acetate (Phoslo) 667 mg PO TIDCC [facility] Last Admin: 07/25/17 07:47 Dose: 667 mg Carvedilol (Coreg) 6.25 mg PO BID [facility] Last Admin: 07/25/17 09:43 Dose: 6.25 mg Clopidogrel Bisulfate (Plavix) 75 mg PO DAILY [facility] Last Admin: 07/23/17 11:09 Dose: Not Given Epoetin Kumar (Procrit) 10,000 unit SC MWF [facility] Last Admin: 07/25/17 11:25 Dose: 10,000 unit Famotidine (Pepcid) 20 mg PO DAILY [facility] Meropenem 500 mg/ Sodium (Chloride) 100 mls @ 100 mls/hr IVPB Q12H [facility] PRN Reason: Protocol Last Admin: 07/25/17 00:00 Dose: 100 mls/hr Acyclovir 200 mg/ Sodium (Chloride) 100 mls @ 100 mls/hr IV Q12H [facility] PRN Reason: Protocol Last Admin: 07/25/17 01:00 Dose: 100 mls/hr Propofol (Diprivan) 1,000 mg in 100 mls @ 2.4 mls/hr IV .Q24H PRN; Protocol; 5 MCG/KG/MIN PRN Reason: TITRATE PER MD ORDER Last Titration: 07/23/17 09:00 Dose: 0 mcg/kg/min, 0 mls/hr Vancomycin/Sodium Chloride (Vancomycin 1 Gm/Ns 200 Ml) 1 gm in 200 mls @ 166.7 mls/hr IVPB MWF [facility] PRN Reason: Protocol Stop: 08/02/17 09:01 Vancomycin/Sodium Chloride (Vancomycin 1 Gm/Ns 200 Ml) 1 gm in 200 mls @ 133 mls/hr IVPB ONCE ONE PRN Reason: Protocol Stop: 07/26/17 14:30 Insulin Human Regular (Novolin R) 0 unit SC Q6 [facility] PRN Reason: Protocol Last Admin: 07/25/17 11:38 Dose: 4 unit Levetiracetam (Keppra) 250 mg PO BID [facility] Last Admin: 07/24/17 19:00 Dose: 250 mg Levothyroxine Sodium (Synthroid) 50 mcg PO DAILY@0630 [facility] Last Admin: 07/25/17 05:52 Dose: 50 mcg Modafinil (Provigil) 50 mg PO DAILY [facility] Last Admin: 07/24/17 09:14 Dose: 50 mg Vitamin A (Vitamin A & D [facility]d [facility]) 1 ea TOP BID [facility] Last Admin: 07/25/17 09:43 Dose: 1 ea - Labs Labs: 07/25/17 05:00 07/25/17 06:27 PT 11.2 SECONDS (9.7-12.2) 07/22/17 20:01 INR 1.0 07/22/17 20:01 APTT 35 SECONDS (21-34) H 07/22/17 20:01 - Constitutional Appears: Confused, Chronically Ill - Head Exam Head Exam: ATRAUMATIC, NORMAL INSPECTION - Eye Exam Eye Exam: EOMI - Neck Exam Neck Exam: Normal Inspection. absent: Tenderness - Respiratory Exam Respiratory Exam: Clear to Ausculation Bilateral, Respiratory Distress - Cardiovascular Exam Cardiovascular Exam: REGULAR RHYTHM, +S1 - GI/Abdominal Exam GI & Abdominal Exam: Soft. absent: Tenderness - Extremities Exam Extremities Exam: Normal Inspection. absent: Tenderness - Neurological Exam Neurological Exam: Altered - Skin Skin Exam: Dry, Warm Assessment and Plan (1) TIA (transient ischemic attack) Status: Acute (2) ESRD (end stage renal disease) Status: Acute (3) Heart block AV complete Status: Acute (4) Type 2 diabetes mellitus with diabetic nephropathy Status: Acute - Assessment and Plan (Free Text) Plan: repeat dialysis in AM 1 dose IV Fe continue ESAs monitor BP- avoid hypotensive episodes IV ABs; avoid PICC if possible
--- NOTE | 2017-07-25 13:13 | EEG ---
DATE: 07/18/2017 Technical Information: Electrodes were placed according to the 10-20 International electrode system by electroneurodiagnostic technologist. Total of 23 electrodes (21 EEG and 2 EKG) were placed. EEG activity was digitally recorded referentially to P1/P2 or A1/A2 electrodes. Continuous monitoring with EEG was performed using digital analysis for spike detection. The [employer] spike and seizure detection algorithms were used for digital EEG analysis throughout the monitoring period to screen the EEG in real-time and yeny the data file with pointers to electrographic seizures and interictal discharges. EEG was screened for electrographic seizures and interictal discharges by a technologist. Physician, epileptologist reviewed detections as well as extensive random samples and whole EEG study in detail. Digital EEG Analysis: Was carried out including FFT (Fast Fourier Transform), R2D2 (Rhythmicity Run Detection and Display), Relative Asymmetry Spectrogram, and voltage plot by the [employer]. The Qualitative EEG analysis and the voltage plot mapping were used for detection of foci of paroxysmal and abnormal electrical cortical activity. General Description: Background Rhythm: There is a well-formed, 8-10 Hz posterior dominant rhythm that is reactive, symmetric, and attenuates with eye opening. There was a normal amount of frontal beta noted bilaterally. There is no sleep recorded. Normal sleep patterns were captured, including bilaterally symmetric 12-14 Hz spindles, vertex waves, and K complexes. Activation Procedures: Photic stimulation: There is no driving noted. Hyperventilation: There is slowing noted that is self-remitted. Abnormal Activity: There are no focal epileptiform discharges noted. No clinical or subclinical seizures noted. Impression: This is a normal awake and sleep electroencephalogram. No clinical or subclinical seizures were noted. Clinical correlation is required. Eusebio Thompson MD
--- NOTE | 2017-07-25 13:17 | EEG ---
DATE: 07/23/2017 TECHNICAL INFORMATION: This EEG is configured using 16 electrodes placed according to international 10-20 electrode system. All electrodes were referenced to A1/A2 and P1/P2 respectively. Continuous seizure monitoring was done using spike detection services. POSTERIOR DOMINANT RHYTHM: There is a nonposterior dominant rhythm 8-10 Hz, symmetric bilaterally. There was a normal amount of beta present bifrontally. There is normal sleep captured with bilateral spindles that are 12-14 Hz. ABNORMAL ACTIVITY: There are 1-2 poorly formed right temporal sharp waves. There are no clinical or subclinical seizures. IMPRESSION: This is an abnormal awake and sleep electroencephalogram. There are rare right temporal sharp that may indicate the presence of epilepsy that could be postictal in nature. Clinical correlation is required . Eusebio Thompson MD
--- NOTE | 2017-07-25 16:56 | CP.PCM.PN ---
Subjective - Date & Time of Evaluation Date of Evaluation: 07/25/17 Time of Evaluation: 16:56 - Subjective Subjective: Temperature down. on ventilator More awake and responsive. s/p hemodialysis again today. As per RN patient got IV vancomycin 1 g on , 07/24/17.post hemodialysis. labs reviewed. WBC 14.5 h/h Stable. blood cultures 07/23/17 -ve growth for 48 hours. ON IV ANTIBIOTICS/ AND iv ANTIVIRALS. Objective - Vital Signs/Intake and Output Vital Signs (last 24 hours): Temp Pulse Resp BP Pulse Ox 97.7 F 77 16 156/57 H 95 07/25/17 16:00 07/25/17 16:25 07/25/17 16:25 07/25/17 16:25 07/25/17 16:25 Intake and Output: 07/25/17 07/25/17 06:59 18:59 Intake Total 480 830 Balance 480 830 - Medications Medications: Current Medications Acetaminophen (Tylenol 325mg Tab) 650 mg PO Q6 PRN PRN Reason: Fever >100.4 F Last Admin: 07/24/17 07:48 Dose: 650 mg Albuterol/Ipratropium (Duoneb 3 Mg/0.5 Mg (3 Ml) Ud) 3 ml INH RQ6 [facility] Last Admin: 07/25/17 13:31 Dose: 3 ml Artificial Tears (Artificial Tears) 0 ml OD Q3H PRN PRN Reason: Dry eyes Last Admin: 07/25/17 12:42 Dose: 1 drop Aspirin (Aspirin Chewable) 81 mg PO DAILY [facility] Last Admin: 07/25/17 12:37 Dose: 81 mg Calcium Acetate (Phoslo) 667 mg PO TIDCC [facility] Last Admin: 07/25/17 16:21 Dose: 667 mg Carvedilol (Coreg) 6.25 mg PO BID [facility] Last Admin: 07/25/17 09:43 Dose: 6.25 mg Clopidogrel Bisulfate (Plavix) 75 mg PO DAILY [facility] Last Admin: 07/23/17 11:09 Dose: Not Given Epoetin Kumar (Procrit) 10,000 unit SC MWF [facility] Last Admin: 07/25/17 11:25 Dose: 10,000 unit Famotidine (Pepcid) 20 mg PO DAILY [facility] Last Admin: 07/25/17 12:37 Dose: 20 mg Ferric Sodium Gluconate Complex (Ferrlecit) 125 mg IVPB DAILY [facility] Stop: 08/03/17 10:01 Meropenem 500 mg/ Sodium (Chloride) 100 mls @ 100 mls/hr IVPB Q12H [facility] PRN Reason: Protocol Last Admin: 07/25/17 12:37 Dose: 100 mls/hr Acyclovir 200 mg/ Sodium (Chloride) 100 mls @ 100 mls/hr IV Q12H [facility] PRN Reason: Protocol Last Admin: 07/25/17 13:56 Dose: 100 mls/hr Propofol (Diprivan) 1,000 mg in 100 mls @ 2.4 mls/hr IV .Q24H PRN; Protocol; 5 MCG/KG/MIN PRN Reason: TITRATE PER MD ORDER Last Titration: 07/23/17 09:00 Dose: 0 mcg/kg/min, 0 mls/hr Vancomycin/Sodium Chloride (Vancomycin 1 Gm/Ns 200 Ml) 1 gm in 200 mls @ 166.7 mls/hr IVPB M[facility] PRN Reason: Protocol Stop: 08/02/17 09:01 Vancomycin/Sodium Chloride (Vancomycin 1 Gm/Ns 200 Ml) 1 gm in 200 mls @ 133 mls/hr IVPB ONCE ONE PRN Reason: Protocol Stop: 07/26/17 14:30 Insulin Human Regular (Novolin R) 0 unit SC Q6 [facility] PRN Reason: Protocol Last Admin: 07/25/17 11:38 Dose: 4 unit Levetiracetam (Keppra) 250 mg PO BID [facility] Last Admin: 07/25/17 12:37 Dose: 250 mg Levothyroxine Sodium (Synthroid) 50 mcg PO DAILY@0630 [facility] Last Admin: 07/25/17 05:52 Dose: 50 mcg Losartan Potassium (Cozaar) 25 mg PO DAILY [facility] Last Admin: 07/25/17 15:25 Dose: 25 mg Modafinil (Provigil) 50 mg PO DAILY [facility] Last Admin: 07/25/17 12:37 Dose: 50 mg Vitamin A (Vitamin A & D Oint Ud Foilpak) 1 ea TOP BID [facility] Last Admin: 07/25/17 09:43 Dose: 1 ea - Labs Labs: 07/25/17 05:00 07/25/17 06:27 PT 11.2 SECONDS (9.7-12.2) 07/22/17 20:01 INR 1.0 07/22/17 20:01 APTT 35 SECONDS (21-34) H 07/22/17 20:01 - Constitutional Appears: No Acute Distress - Head Exam Head Exam: NORMAL INSPECTION - Eye Exam Eye Exam: PERRL - ENT Exam ENT Exam: Normal Oropharynx - Neck Exam Neck Exam: Normal Inspection - Respiratory Exam Respiratory Exam: Decreased Breath Sounds - Cardiovascular Exam Cardiovascular Exam: REGULAR RHYTHM, +S1, +S2 - GI/Abdominal Exam GI & Abdominal Exam: Soft, Normal Bowel Sounds. absent: Organomegaly - Extremities Exam Extremities Exam: absent: Calf Tenderness, Pedal Edema (bilateral Venodyne) - Neurological Exam Neurological Exam: Altered, Awake, CN II-XII Intact - Psychiatric Exam Psychiatric exam: Normal Affect Assessment and Plan (1) Toxic metabolic encephalopathy Assessment & Plan: CT HEAD REPEAT -UNREMARKABLE. CONTINUE IV VANCOMYCIN 1 G POST-EACH HEMODIALYSIS TTS.. CONTINUE MERREM 500 MG EVERY 12 HOURLY. CONTINUE iv ACYCLOVIR 200 MG iv EVERY 12 HOURLY. Status: Acute (2) Yu palsy Assessment & Plan: CT HEAD REPEAT -UNREMARKABLE. CONTINUE IV VANCOMYCIN 1 G POST-EACH HEMODIALYSIS TTS. PER RN MS BALDERAS HEMODIALYSIS CHANGED TO MWF PER DR LONG CONTINUE MERREM 500 MG EVERY 12 HOURLY. CONTINUE iv ACYCLOVIR 200 MG iv EVERY 12 HOURLY. 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 Status: Acute (5) Heart block AV complete Status: Acute
--- NOTE | 2017-07-25 17:35 | CP.CCUPN ---
<Tameka Chin - Last Filed: 07/25/17 17:30> CCU Subjective - Physician Review Subjective (Free Text): Patient seen and examined at bedside. Patient intubated on PRVC current settings : 14/40%/450/ 5. Patient is more responsive today. Follows commands. CCU Objective - Vital Signs / Intake & Output Vital Signs (Last 4 hours): Vital Signs Temp Pulse Resp BP Pulse Ox 07/25/17 16:25 77 16 156/57 H 95 07/25/17 16:00 97.7 F 77 18 99 07/25/17 15:25 81 18 172/61 H 95 07/25/17 15:00 85 13 98 07/25/17 14:41 81 16 180/62 H 97 07/25/17 14:00 79 16 100 07/25/17 13:41 81 18 101/83 100 Intake and Output (Last 8hrs): Intake & Output 07/25/17 07/25/17 07/25/17 06:59 14:59 22:59 Intake Total 320 650 180 Balance 320 650 180 Weight 169 lb 8.568 oz Intake: Intake, IV Amount 200 Left Antecubital side- 200 port Tube Feeding 320 320 80 Other 130 100 Other: # Bowel Movements 1 - Physical Exam Head: Positive for: Atraumatic, Normocephalic Pupils: Positive for: PERRL Extroacular Muscles: Positive for: EOMI Conjunctiva: Positive for: Normal Mouth: Positive for: Dry, Other (INTUBATED) Pharnyx: Positive for: Uvular Deviation (right) Neck: Positive for: Normal Range of Motion, Other (shiley catheter in place ) Respiratory/Chest: Positive for: Clear to Auscultation, Good Air Exchange. Negative for: Respiratory Distress Cardiovascular: Positive for: Tachycardic Abdomen: Positive for: Normal Bowel Sounds, Other (peritoneal catheter in place , c/d/i ) Back: Positive for: Normal Inspection Upper Extremity: Positive for: Normal Inspection, NORMAL PULSES, Neurovascularly Intact, Capillary Refill < 2s. Negative for: Cyanosis, Edema, Tenderness, Swelling, Erythema Lower Extremity: Positive for: Normal Inspection, NORMAL PULSES. Negative for: Edema, CALF TENDERNESS, Tenderness, Swelling, Erythema Neurological: Positive for: Other (right facial droop ) Skin: Positive for: Warm, Dry, Normal Color. Negative for: Rashes Psychiatric: Positive for: Alert, Lethargic - Medications Active Medications: Active Medications Generic Name Dose Route Start Last Admin Trade Name Freq PRN Reason Stop Dose Admin Acetaminophen 650 mg 07/24/17 07:42 07/24/17 07:48 Tylenol 325mg Tab PO 650 mg Q6 PRN Administration Fever >100.4 F Albuterol/Ipratropium 3 ml 07/13/17 14:00 07/25/17 13:31 Duoneb 3 Mg/0.5 Mg (3 Ml) Ud INH 3 ml RQ6 JAYLA Administration Artificial Tears 0 ml 07/13/17 22:00 07/25/17 12:42 Artificial Tears OD 1 drop Q3H PRN Administration Dry eyes Aspirin 81 mg 07/15/17 10:00 07/25/17 12:37 Aspirin Chewable PO 81 mg DAILY JAYLA Administration Calcium Acetate 667 mg 07/13/17 12:00 07/25/17 16:21 Phoslo PO 667 mg TIDCC JAYLA Administration Carvedilol 6.25 mg 07/23/17 18:00 07/25/17 09:43 Coreg PO 6.25 mg BID JAYLA Administration Clopidogrel Bisulfate 75 mg 07/15/17 10:00 07/23/17 11:09 Plavix PO Not Given DAILY JAYLA Epoetin Kumar 10,000 unit 07/16/17 09:00 07/25/17 11:25 Procrit SC 10,000 unit MWF JAYLA Administration Famotidine 20 mg 07/25/17 12:15 07/25/17 12:37 Pepcid PO 20 mg DAILY JAYLA Administration Ferric Sodium Gluconate Complex 125 mg 07/26/17 10:00 Ferrlecit IVPB 08/03/17 10:01 DAILY JAYLA Meropenem 500 mg/ Sodium 100 mls @ 100 mls/hr 07/18/17 23:30 07/25/17 12:37 Chloride IVPB 100 mls/hr Q12H JAYLA Administration Protocol Acyclovir 200 mg/ Sodium 100 mls @ 100 mls/hr 07/22/17 13:00 07/25/17 13:56 Chloride IV 100 mls/hr Q12H JAYLA Administration Protocol Propofol 1,000 mg in 100 mls @ 2.4 mls/hr 07/22/17 20:21 07/23/17 09:00 Diprivan IV 0 mcg/kg/min .Q24H PRN 0 mls/hr TITRATE PER MD ORDER Titration Protocol 5 MCG/KG/MIN Vancomycin/Sodium Chloride 1 gm in 200 mls @ 166.7 mls/hr 07/28/17 09:00 Vancomycin 1 Gm/Ns 200 Ml IVPB 08/02/17 09:01 MWF JAYLA Protocol Vancomycin/Sodium Chloride 1 gm in 200 mls @ 133 mls/hr 07/26/17 13:00 Vancomycin 1 Gm/Ns 200 Ml IVPB 07/26/17 14:30 ONCE ONE Protocol Insulin Human Regular 0 unit 07/15/17 07:32 07/25/17 11:38 Novolin R SC 4 unit Q6 JAYLA Administration Protocol Levetiracetam 250 mg 07/24/17 18:30 07/25/17 12:37 Keppra PO 250 mg BID JAYLA Administration Levothyroxine Sodium 50 mcg 07/14/17 06:30 07/25/17 05:52 Synthroid PO 50 mcg DAILY@0630 JAYLA Administration Losartan Potassium 25 mg 07/25/17 15:00 07/25/17 15:25 Cozaar PO 25 mg DAILY JAYLA Administration Modafinil 50 mg 07/24/17 10:00 07/25/17 12:37 Provigil PO 50 mg DAILY JAYLA Administration Vitamin A 1 ea 07/19/17 18:00 07/25/17 09:43 Vitamin A & D Oint Ud Foilpak TOP 1 ea BID JAYLA Administration - Patient Studies Lab Studies: Microbiology Studies 07/23/17 06:09 Blood Culture - Preliminary Blood-Thru Central Line NO GROWTH AFTER 48 HOURS Lab Studies 07/25/17 07/25/17 07/25/17 Range/Units 11:17 06:27 05:16 WBC (4.8-10.8) K/uL RBC (4.40-5.90) Mil/uL Hgb (12.0-18.0) g/dL Hct (35.0-51.0) % MCV (80.0-94.0) fL MCH (27.0-31.0) pg MCHC (33.0-37.0) g/dL RDW (11.5-14.5) % Plt Count (130-400) K/uL MPV (7.2-11.7) fL Neut % (Auto) (50.0-75.0) % Lymph % (Auto) (20.0-40.0) % [place] % (Auto) (0.0-10.0) % Eos % (Auto) (0.0-4.0) % Baso % (Auto) (0.0-2.0) % Neut # (Auto) (1.8-7.0) K/uL Lymph # (Auto) (1.0-4.3) K/uL [place] # (Auto) (0.0-0.8) K/uL Eos # (Auto) (0.0-0.7) K/uL Baso # (Auto) (0.0-0.2) K/uL Neutrophils % (Manual) (50-75) % Lymphocytes % (Manual) (20-40) % Monocytes % (Manual) (0-10) % Eosinophils % (Manual) (0-4) % Basophils % (Manual) (0-2) % Nucleated RBC % (0-0) % Toxic Granulation Platelet Estimate (NORMAL) Hypochromasia (manual) Poikilocytosis (manual Anisocytosis (manual) Puncture Site Lr pCO2 45 (35-45) mm/Hg pO2 155 H (80-100) mm/Hg HCO3 26.8 (21-28) mmol/L ABG pH 7.40 (7.35-7.45) ABG Total CO2 29.3 H (22-28) mmol/L ABG O2 Saturation 98.6 H (95-98) % ABG Base Excess 2.4 (-2.0-3.0) mmol/L ABG Hemoglobin 17.1 (11.7-17.4) g/dL ABG Carboxyhemoglobin 1.1 (0.5-1.5) % POC ABG HHb (Measured) 1.4 (0.0-5.0) % ABG Methemoglobin 0.8 (0.0-3.0) % Navin Test Pos A-a O2 Difference 74.0 mm/Hg Respiratory Index 0.5 Hgb O2 Saturation 96.7 (95.0-98.0) % Vent Mode Prvc Mechanical Rate 14 FiO2 40.0 % Tidal Volume 450 PEEP 5 Sodium 136 (132-148) mmol/L Potassium 4.0 (3.6-5.2) mmol/L Chloride 100 (98-107) mmol/L Carbon Dioxide 29 (22-30) mmol/L Anion Gap 11 (10-20) BUN 49 H (9-20) mg/dL Creatinine 5.4 H (0.8-1.5) mg/dL Est GFR ( Amer) 12 Est GFR (Non-Af Amer) 10 POC Glucose (mg/dL) 201 H (65-110) mg/dL Random Glucose 245 H (75-110) mg/dL Calcium 8.4 L (8.6-10.4) mg/dl Phosphorus 3.6 (2.5-4.5) mg/dL Magnesium 2.2 (1.6-2.3) mg/dL Total Bilirubin 0.7 (0.2-1.3) mg/dL AST 46 (17-59) U/L ALT 53 (21-72) U/L Alkaline Phosphatase 194 H D (38-126) U/L Total Protein 5.7 L (6.3-8.3) g/dL Albumin 2.6 L (3.5-5.0) g/dL Globulin 3.1 (2.2-3.9) gm/dL Albumin/Globulin Ratio 0.9 L (1.0-2.1) Complement C2 (1.6-3.5) mg/dL 07/25/17 07/25/17 07/25/17 Range/Units 05:09 05:00 00:08 WBC 14.5 H (4.8-10.8) K/uL RBC 2.99 L (4.40-5.90) Mil/uL Hgb 9.6 L (12.0-18.0) g/dL Hct 28.0 L (35.0-51.0) % MCV 93.8 (80.0-94.0) fL MCH 32.1 H (27.0-31.0) pg MCHC 34.3 (33.0-37.0) g/dL RDW 16.6 H (11.5-14.5) % Plt Count 156 (130-400) K/uL MPV 8.9 (7.2-11.7) fL Neut % (Auto) 79.1 H (50.0-75.0) % Lymph % (Auto) 8.3 L (20.0-40.0) % [place]berson % (Auto) 8.5 (0.0-10.0) % Eos % (Auto) 3.3 (0.0-4.0) % Baso % (Auto) 0.8 (0.0-2.0) % Neut # (Auto) 11.5 H (1.8-7.0) K/uL Lymph # (Auto) 1.2 (1.0-4.3) K/uL [place]berson # (Auto) 1.2 H (0.0-0.8) K/uL Eos # (Auto) 0.5 (0.0-0.7) K/uL Baso # (Auto) 0.1 (0.0-0.2) K/uL Neutrophils % (Manual) 81 H (50-75) % Lymphocytes % (Manual) 3 L (20-40) % Monocytes % (Manual) 9 (0-10) % Eosinophils % (Manual) 6 H (0-4) % Basophils % (Manual) 1 (0-2) % Nucleated RBC % 3 H (0-0) % Toxic Granulation Present Platelet Estimate Normal (NORMAL) Hypochromasia (manual) Slight Poikilocytosis (manual Slight Anisocytosis (manual) Slight Puncture Site pCO2 (35-45) mm/Hg pO2 (80-100) mm/Hg HCO3 (21-28) mmol/L ABG pH (7.35-7.45) ABG Total CO2 (22-28) mmol/L ABG O2 Saturation (95-98) % ABG Base Excess (-2.0-3.0) mmol/L ABG Hemoglobin (11.7-17.4) g/dL ABG Carboxyhemoglobin (0.5-1.5) % POC ABG HHb (Measured) (0.0-5.0) % ABG Methemoglobin (0.0-3.0) % Navin Test A-a O2 Difference mm/Hg Respiratory Index Hgb O2 Saturation (95.0-98.0) % Vent Mode Mechanical Rate FiO2 % Tidal Volume PEEP Sodium (132-148) mmol/L Potassium (3.6-5.2) mmol/L Chloride (98-107) mmol/L Carbon Dioxide (22-30) mmol/L Anion Gap (10-20) BUN (9-20) mg/dL Creatinine (0.8-1.5) mg/dL Est GFR ( Amer) Est GFR (Non-Af Amer) POC Glucose (mg/dL) 290 H 226 H (65-110) mg/dL Random Glucose (75-110) mg/dL Calcium (8.6-10.4) mg/dl Phosphorus (2.5-4.5) mg/dL Magnesium (1.6-2.3) mg/dL Total Bilirubin (0.2-1.3) mg/dL AST (17-59) U/L ALT (21-72) U/L Alkaline Phosphatase (38-126) U/L Total Protein (6.3-8.3) g/dL Albumin (3.5-5.0) g/dL Globulin (2.2-3.9) gm/dL Albumin/Globulin Ratio (1.0-2.1) Complement C2 (1.6-3.5) mg/dL 07/24/17 07/19/17 Range/Units 17:43 08:31 WBC (4.8-10.8) K/uL RBC (4.40-5.90) Mil/uL Hgb (12.0-18.0) g/dL Hct (35.0-51.0) % MCV (80.0-94.0) fL MCH (27.0-31.0) pg MCHC (33.0-37.0) g/dL RDW (11.5-14.5) % Plt Count (130-400) K/uL MPV (7.2-11.7) fL Neut % (Auto) (50.0-75.0) % Lymph % (Auto) (20.0-40.0) % [place] % (Auto) (0.0-10.0) % Eos % (Auto) (0.0-4.0) % Baso % (Auto) (0.0-2.0) % Neut # (Auto) (1.8-7.0) K/uL Lymph # (Auto) (1.0-4.3) K/uL [place] # (Auto) (0.0-0.8) K/uL Eos # (Auto) (0.0-0.7) K/uL Baso # (Auto) (0.0-0.2) K/uL Neutrophils % (Manual) (50-75) % Lymphocytes % (Manual) (20-40) % Monocytes % (Manual) (0-10) % Eosinophils % (Manual) (0-4) % Basophils % (Manual) (0-2) % Nucleated RBC % (0-0) % Toxic Granulation Platelet Estimate (NORMAL) Hypochromasia (manual) Poikilocytosis (manual Anisocytosis (manual) Puncture Site pCO2 (35-45) mm/Hg pO2 (80-100) mm/Hg HCO3 (21-28) mmol/L ABG pH (7.35-7.45) ABG Total CO2 (22-28) mmol/L ABG O2 Saturation (95-98) % ABG Base Excess (-2.0-3.0) mmol/L ABG Hemoglobin (11.7-17.4) g/dL ABG Carboxyhemoglobin (0.5-1.5) % POC ABG HHb (Measured) (0.0-5.0) % ABG Methemoglobin (0.0-3.0) % Navin Test A-a O2 Difference mm/Hg Respiratory Index Hgb O2 Saturation (95.0-98.0) % Vent Mode Mechanical Rate FiO2 % Tidal Volume PEEP Sodium (132-148) mmol/L Potassium (3.6-5.2) mmol/L Chloride (98-107) mmol/L Carbon Dioxide (22-30) mmol/L Anion Gap (10-20) BUN (9-20) mg/dL Creatinine (0.8-1.5) mg/dL Est GFR ( Amer) Est GFR (Non-Af Amer) POC Glucose (mg/dL) 236 H (65-110) mg/dL Random Glucose (75-110) mg/dL Calcium (8.6-10.4) mg/dl Phosphorus (2.5-4.5) mg/dL Magnesium (1.6-2.3) mg/dL Total Bilirubin (0.2-1.3) mg/dL AST (17-59) U/L ALT (21-72) U/L Alkaline Phosphatase (38-126) U/L Total Protein (6.3-8.3) g/dL Albumin (3.5-5.0) g/dL Globulin (2.2-3.9) gm/dL Albumin/Globulin Ratio (1.0-2.1) Complement C2 2.5 (1.6-3.5) mg/dL Laboratory Results - last 24 hr 07/19/17 07/24/17 07/25/17 08:31 17:43 00:08 WBC RBC Hgb Hct MCV MCH MCHC RDW Plt Count MPV Neut % (Auto) Lymph % (Auto) [place]bers[place] % (Auto) Eos % (Auto) Baso % (Auto) Neut # (Auto) Lymph # (Auto) [place] # (Auto) Eos # (Auto) Baso # (Auto) Neutrophils % (Manual) Lymphocytes % (Manual) Monocytes % (Manual) Eosinophils % (Manual) Basophils % (Manual) Nucleated RBC % Toxic Granulation Platelet Estimate Hypochromasia (manual) Poikilocytosis (manual Anisocytosis (manual) Puncture Site pCO2 pO2 HCO3 ABG pH ABG Total CO2 ABG O2 Saturation ABG Base Excess ABG Hemoglobin ABG Carboxyhemoglobin POC ABG HHb (Measured) ABG Methemoglobin Nvain Test A-a O2 Difference Respiratory Index Hgb O2 Saturation Vent Mode Mechanical Rate FiO2 Tidal Volume PEEP Sodium Potassium Chloride Carbon Dioxide Anion Gap BUN Creatinine Est GFR ( Amer) Est GFR (Non-Af Amer) POC Glucose (mg/dL) 236 H 226 H Random Glucose Calcium Phosphorus Magnesium Total Bilirubin AST ALT Alkaline Phosphatase Total Protein Albumin Globulin Albumin/Globulin Ratio Complement C2 2.5 07/25/17 07/25/17 07/25/17 05:00 05:09 05:16 WBC 14.5 H RBC 2.99 L Hgb 9.6 L Hct 28.0 L MCV 93.8 MCH 32.1 H MCHC 34.3 RDW 16.6 H Plt Count 156 MPV 8.9 Neut % (Auto) 79.1 H Lymph % (Auto) 8.3 L [place]bers[place] % (Auto) 8.5 Eos % (Auto) 3.3 Baso % (Auto) 0.8 Neut # (Auto) 11.5 H Lymph # (Auto) 1.2 [place]berson # (Auto) 1.2 H Eos # (Auto) 0.5 Baso # (Auto) 0.1 Neutrophils % (Manual) 81 H Lymphocytes % (Manual) 3 L Monocytes % (Manual) 9 Eosinophils % (Manual) 6 H Basophils % (Manual) 1 Nucleated RBC % 3 H Toxic Granulation Present Platelet Estimate Normal Hypochromasia (manual) Slight Poikilocytosis (manual Slight Anisocytosis (manual) Slight Puncture Site Lr pCO2 45 pO2 155 H HCO3 26.8 ABG pH 7.40 ABG Total CO2 29.3 H ABG O2 Saturation 98.6 H ABG Base Excess 2.4 ABG Hemoglobin 17.1 ABG Carboxyhemoglobin 1.1 POC ABG HHb (Measured) 1.4 ABG Methemoglobin 0.8 Navin Test Pos A-a O2 Difference 74.0 Respiratory Index 0.5 Hgb O2 Saturation 96.7 Vent Mode Prvc Mechanical Rate 14 FiO2 40.0 Tidal Volume 450 PEEP 5 Sodium Potassium Chloride Carbon Dioxide Anion Gap BUN Creatinine Est GFR ( Amer) Est GFR (Non-Af Amer) POC Glucose (mg/dL) 290 H Random Glucose Calcium Phosphorus Magnesium Total Bilirubin AST ALT Alkaline Phosphatase Total Protein Albumin Globulin Albumin/Globulin Ratio Complement C2 07/25/17 07/25/17 06:27 11:17 WBC RBC Hgb Hct MCV MCH MCHC RDW Plt Count MPV Neut % (Auto) Lymph % (Auto) [place]berson % (Auto) Eos % (Auto) Baso % (Auto) Neut # (Auto) Lymph # (Auto) [place] # (Auto) Eos # (Auto) Baso # (Auto) Neutrophils % (Manual) Lymphocytes % (Manual) Monocytes % (Manual) Eosinophils % (Manual) Basophils % (Manual) Nucleated RBC % Toxic Granulation Platelet Estimate Hypochromasia (manual) Poikilocytosis (manual Anisocytosis (manual) Puncture Site pCO2 pO2 HCO3 ABG pH ABG Total CO2 ABG O2 Saturation ABG Base Excess ABG Hemoglobin ABG Carboxyhemoglobin POC ABG HHb (Measured) ABG Methemoglobin Navin Test A-a O2 Difference Respiratory Index Hgb O2 Saturation Vent Mode Mechanical Rate FiO2 Tidal Volume PEEP Sodium 136 Potassium 4.0 Chloride 100 Carbon Dioxide 29 Anion Gap 11 BUN 49 H Creatinine 5.4 H Est GFR ( Amer) 12 Est GFR (Non-Af Amer) 10 POC Glucose (mg/dL) 201 H Random Glucose 245 H Calcium 8.4 L Phosphorus 3.6 Magnesium 2.2 Total Bilirubin 0.7 AST 46 ALT 53 Alkaline Phosphatase 194 H D Total Protein 5.7 L Albumin 2.6 L Globulin 3.1 Albumin/Globulin Ratio 0.9 L Complement C2 Fingerstick Blood Sugar Results: 201 Critical Care Progress Note - Nutrition Nutrition: Nutrition Category Date Time Status NPO Diet [DIET] Diets 07/20/17 Dinner Active Assessment/Plan - Assessment and Plan (Free Text) Assessment: This is a 76 year old male with HTN, DM, Hypercholesterimia, CAD, CABG with 5 vessel disease, ESRD on peritoneal dialysis, with symptomatic bradycardia s/p pacemaker placed [address] Valencia, hypothyroidism, who presented to the ED on 07/28 for dysphagia and slurred speech, was diagnosed with Yu's Palsy. Patient is with persistent AMS 2/2 Metabolic Encephalopathy. HD x 2 session on , 07/23, s/p catheter placement 07/22/17. Plan: Neuro: Intubated 2/2 Respiratory Failure on Diprivan on PRVC 14/40/450/5 A: Metabolic Encephalopathy Neurology consulted - Dr. iRvera - Patient will not benefit from LP at this time - Subacute to chronic infarct on the CT head involving the right frontal lobe, the patient is unlikely to have meningoencephalitis and likely has a combination of toxic-metabolic encephalopathy and cerebral ischemia. - Started Keppra 250mg PO BID A: Right Yu's Palsy Neurology: Dr. Thompson - on board Imaging: - Head CT: 1. Confluent area of low attenuation within the right frontal subcortical white matter suggestive for chronic ischemic change. 2. Scattered areas of chronic microvascular ischemic change. 3. Prominent ventricles. 4. No evidence of acute intracranial hemorrhage. If there is persistent concern for acute ischemic change, correlation with MRI is recommended. - Head/ Neck CTA: There is nonvisualization origin left vertebral artery. Left vertebral artery reconstitutes at approximately the lower C5 level and is seen on as a patent vessel to the level of the C2 segment where the vertebral artery is no longer visualized and appears to be occluded. Findings could represent sequela of atherosclerotic disease or dissection. Clinical correlation recommended. Right vertebral artery is patent throughout. The common carotid arteries, carotid bifurcations and internal carotid artery is widely patent. There is a calcified atherosclerotic plaque both cavernous carotid segments. The the at anterior middle and posterior cerebral arteries are patent. No evidence of large aneurysm nor vascular malformation. - Not able to have MRI - due to recent PPM placement - 07/[address]: No intracranial mass, hemorrhage or evidence of acute infarct. Right frontal encephalomalacia, possibly old MCA territory infarct. Small nonspecific right mastoid effusion. Chronic white matter ischemic change. A: Hx CVA -ASA 81mg, Plavix 75mg (held), Crestor 10mg Cardio: A: HTN, CAD, CABG with 5 vessel disease, with symptomatic bradycardia s/p pacemaker placed [address] Valencia - Recent ECHO performed in Dr. Elizabeth's office as outpatient - ASA 81mg, Plavix 75mg, Coreg 12.5mg PO BID, Cozaar 25mg, Crestor 10mg Pulm: A: Acute Respiratory Failure - Intubated 07/22/17 Endo: A: Hypothyroidism - Resumed Synthroid 50 mcg A: DM - Accuchecks - ISS - medium - A1C 8.4 GI: A: Cirrhosis, etiology unclear Dr. Irvin consulted Renal: A: ESRD previously on peritoneal dialysis Nephrology consulted - Dr. Benson - right shiley catheter placed - s/p HD 07/22 and 07/23 - Procrit Heme/Onc A: Anemia of Chronic Disease - Baseline hemoglobin 9s - Continue with Procrit - S/P transfused 1 unit PRBC 07/23x - Ferrlecit daily x 1 week - Stool occult- negative ID: A: Sepsis 2/2 Otitis Media with right mastoid effusion? Mastoiditis? r/o Meningitis ID consulted - Dr. Gabe Villegas - Workup up ordered - negative to date - LP??? - Started on Merrem 500 Q12 (07/18) , Vanco 500mg on dialysis(07/19), and Acyclovir 400mg Q12 (07/22) - Pending EEG Prophylaxis - Pepcid 2/2 to steroids - Heparin during HD - Diet: NPO, OGT in place, tube feedings - PT/OT DW with Tameka Almanza, PGY-1 <Amy Ortega M - Last Filed: 07/25/17 18:41> CCU Objective - Vital Signs / Intake & Output Vital Signs (Last 4 hours): Vital Signs Temp Pulse Resp BP Pulse Ox 07/25/17 18:00 85 26 H 100 07/25/17 17:25 75 19 161/57 H 96 07/25/17 17:00 77 21 99 07/25/17 16:25 77 16 156/57 H 95 07/25/17 16:00 97.7 F 77 18 99 07/25/17 15:25 81 18 172/61 H 95 07/25/17 15:00 85 13 98 07/25/17 14:41 81 16 180/62 H 97 Intake and Output (Last 8hrs): Intake & Output 07/25/17 07/25/17 07/25/17 06:59 14:59 22:59 Intake Total 320 650 360 Balance 320 650 360 Weight 169 lb 8.568 oz Intake: Intake, IV Amount 200 Left Antecubital side- 200 port Tube Feeding 320 320 160 Other 130 200 Other: # Bowel Movements 1 - Medications Active Medications: Active Medications Generic Name Dose Route Start Last Admin Trade Name Freq PRN Reason Stop Dose Admin Acetaminophen 650 mg 07/24/17 07:42 07/24/17 07:48 Tylenol 325mg Tab PO 650 mg Q6 PRN Administration Fever >100.4 F Albuterol/Ipratropium 3 ml 07/13/17 14:00 07/25/17 13:31 Duoneb 3 Mg/0.5 Mg (3 Ml) Ud INH 3 ml RQ6 JAYLA Administration Artificial Tears 0 ml 07/13/17 22:00 07/25/17 17:46 Artificial Tears OD 1 drop Q3H PRN Administration Dry eyes Aspirin 81 mg 07/15/17 10:00 07/25/17 12:37 Aspirin Chewable PO 81 mg DAILY JAYLA Administration Calcium Acetate 667 mg 07/13/17 12:00 07/25/17 16:21 Phoslo PO 667 mg TIDCC JAYLA Administration Carvedilol 6.25 mg 07/23/17 18:00 07/25/17 17:45 Coreg PO 6.25 mg BID JAYLA Administration Clopidogrel Bisulfate 75 mg 07/15/17 10:00 07/23/17 11:09 Plavix PO Not Given DAILY JAYLA Epoetin Kumar 10,000 unit 07/16/17 09:00 07/25/17 11:25 Procrit SC 10,000 unit MWF JAYLA Administration Famotidine 20 mg 07/25/17 12:15 07/25/17 12:37 Pepcid PO 20 mg DAILY JAYLA Administration Ferric Sodium Gluconate Complex 125 mg 07/26/17 10:00 Ferrlecit IVPB 08/03/17 10:01 DAILY JAYLA Meropenem 500 mg/ Sodium 100 mls @ 100 mls/hr 07/18/17 23:30 07/25/17 12:37 Chloride IVPB 100 mls/hr Q12H JAYLA Administration Protocol Acyclovir 200 mg/ Sodium 100 mls @ 100 mls/hr 07/22/17 13:00 07/25/17 13:56 Chloride IV 100 mls/hr Q12H JAYLA Administration Protocol Vancomycin/Sodium Chloride 1 gm in 200 mls @ 166.7 mls/hr 07/28/17 09:00 Vancomycin 1 Gm/Ns 200 Ml IVPB 08/02/17 09:01 MWF JAYLA Protocol Vancomycin/Sodium Chloride 1 gm in 200 mls @ 133 mls/hr 07/26/17 13:00 Vancomycin 1 Gm/Ns 200 Ml IVPB 07/26/17 14:30 ONCE ONE Protocol Insulin Human Regular 0 unit 07/15/17 07:32 07/25/17 18:18 Novolin R SC 4 unit Q6 JAYLA Administration Protocol Levetiracetam 250 mg 07/24/17 18:30 07/25/17 17:45 Keppra PO 250 mg BID JYALA Administration Levothyroxine Sodium 50 mcg 07/14/17 06:30 07/25/17 05:52 Synthroid PO 50 mcg DAILY@0630 JAYLA Administration Losartan Potassium 25 mg 07/25/17 15:00 07/25/17 15:25 Cozaar PO 25 mg DAILY JAYLA Administration Modafinil 50 mg 07/24/17 10:00 07/25/17 12:37 Provigil PO 50 mg DAILY JAYLA Administration Vitamin A 1 ea 07/19/17 18:00 07/25/17 17:46 Vitamin A & D Oint Foilpak TOP 1 ea BID JAYLA Administration - Patient Studies Lab Studies: Microbiology Studies 07/23/17 06:09 Blood Culture - Preliminary Blood-Thru Central Line NO GROWTH AFTER 48 HOURS Lab Studies 07/25/17 07/25/17 07/25/17 Range/Units 18:06 11:17 06:27 WBC (4.8-10.8) K/uL RBC (4.40-5.90) Mil/uL Hgb (12.0-18.0) g/dL Hct (35.0-51.0) % MCV (80.0-94.0) fL MCH (27.0-31.0) pg MCHC (33.0-37.0) g/dL RDW (11.5-14.5) % Plt Count (130-400) K/uL MPV (7.2-11.7) fL Neut % (Auto) (50.0-75.0) % Lymph % (Auto) (20.0-40.0) % [place] % (Auto) (0.0-10.0) % Eos % (Auto) (0.0-4.0) % Baso % (Auto) (0.0-2.0) % Neut # (Auto) (1.8-7.0) K/uL Lymph # (Auto) (1.0-4.3) K/uL [place] # (Auto) (0.0-0.8) K/uL Eos # (Auto) (0.0-0.7) K/uL Baso # (Auto) (0.0-0.2) K/uL Neutrophils % (Manual) (50-75) % Lymphocytes % (Manual) (20-40) % Monocytes % (Manual) (0-10) % Eosinophils % (Manual) (0-4) % Basophils % (Manual) (0-2) % Nucleated RBC % (0-0) % Toxic Granulation Platelet Estimate (NORMAL) Hypochromasia (manual) Poikilocytosis (manual Anisocytosis (manual) Puncture Site pCO2 (35-45) mm/Hg pO2 (80-100) mm/Hg HCO3 (21-28) mmol/L ABG pH (7.35-7.45) ABG Total CO2 (22-28) mmol/L ABG O2 Saturation (95-98) % ABG Base Excess (-2.0-3.0) mmol/L ABG Hemoglobin (11.7-17.4) g/dL ABG Carboxyhemoglobin (0.5-1.5) % POC ABG HHb (Measured) (0.0-5.0) % ABG Methemoglobin (0.0-3.0) % Navin Test A-a O2 Difference mm/Hg Respiratory Index Hgb O2 Saturation (95.0-98.0) % Vent Mode Mechanical Rate FiO2 % Tidal Volume PEEP Sodium 136 (132-148) mmol/L Potassium 4.0 (3.6-5.2) mmol/L Chloride 100 (98-107) mmol/L Carbon Dioxide 29 (22-30) mmol/L Anion Gap 11 (10-20) BUN 49 H (9-20) mg/dL Creatinine 5.4 H (0.8-1.5) mg/dL Est GFR ( Amer) 12 Est GFR (Non-Af Amer) 10 POC Glucose (mg/dL) 227 H 201 H (65-110) mg/dL Random Glucose 245 H (75-110) mg/dL Calcium 8.4 L (8.6-10.4) mg/dl Phosphorus 3.6 (2.5-4.5) mg/dL Magnesium 2.2 (1.6-2.3) mg/dL Total Bilirubin 0.7 (0.2-1.3) mg/dL AST 46 (17-59) U/L ALT 53 (21-72) U/L Alkaline Phosphatase 194 H D (38-126) U/L Total Protein 5.7 L (6.3-8.3) g/dL Albumin 2.6 L (3.5-5.0) g/dL Globulin 3.1 (2.2-3.9) gm/dL Albumin/Globulin Ratio 0.9 L (1.0-2.1) Complement C2 (1.6-3.5) mg/dL [place] Enceph IgG [place] Equ[place] Enceph IgM E Equine Enceph Interp [place] Equ[place] Enceph IgG [place] Equ[place] Enceph IgM W Equine Enceph Interp [place] Encephalitis IgG [place] Encephalitis IgM [place] Encephal Interp 07/25/17 07/25/17 07/25/17 Range/Units 05:16 05:09 05:00 WBC 14.5 H (4.8-10.8) K/uL RBC 2.99 L (4.40-5.90) Mil/uL Hgb 9.6 L (12.0-18.0) g/dL Hct 28.0 L (35.0-51.0) % MCV 93.8 (80.0-94.0) fL MCH 32.1 H (27.0-31.0) pg MCHC 34.3 (33.0-37.0) g/dL RDW 16.6 H (11.5-14.5) % Plt Count 156 (130-400) K/uL MPV 8.9 (7.2-11.7) fL Neut % (Auto) 79.1 H (50.0-75.0) % Lymph % (Auto) 8.3 L (20.0-40.0) % [place] % (Auto) 8.5 (0.0-10.0) % Eos % (Auto) 3.3 (0.0-4.0) % Baso % (Auto) 0.8 (0.0-2.0) % Neut # (Auto) 11.5 H (1.8-7.0) K/uL Lymph # (Auto) 1.2 (1.0-4.3) K/uL [place] # (Auto) 1.2 H (0.0-0.8) K/uL Eos # (Auto) 0.5 (0.0-0.7) K/uL Baso # (Auto) 0.1 (0.0-0.2) K/uL Neutrophils % (Manual) 81 H (50-75) % Lymphocytes % (Manual) 3 L (20-40) % Monocytes % (Manual) 9 (0-10) % Eosinophils % (Manual) 6 H (0-4) % Basophils % (Manual) 1 (0-2) % Nucleated RBC % 3 H (0-0) % Toxic Granulation Present Platelet Estimate Normal (NORMAL) Hypochromasia (manual) Slight Poikilocytosis (manual Slight Anisocytosis (manual) Slight Puncture Site Lr pCO2 45 (35-45) mm/Hg pO2 155 H (80-100) mm/Hg HCO3 26.8 (21-28) mmol/L ABG pH 7.40 (7.35-7.45) ABG Total CO2 29.3 H (22-28) mmol/L ABG O2 Saturation 98.6 H (95-98) % ABG Base Excess 2.4 (-2.0-3.0) mmol/L ABG Hemoglobin 17.1 (11.7-17.4) g/dL ABG Carboxyhemoglobin 1.1 (0.5-1.5) % POC ABG HHb (Measured) 1.4 (0.0-5.0) % ABG Methemoglobin 0.8 (0.0-3.0) % Navin Test Pos A-a O2 Difference 74.0 mm/Hg Respiratory Index 0.5 Hgb O2 Saturation 96.7 (95.0-98.0) % Vent Mode Prvc Mechanical Rate 14 FiO2 40.0 % Tidal Volume 450 PEEP 5 Sodium (132-148) mmol/L Potassium (3.6-5.2) mmol/L Chloride (98-107) mmol/L Carbon Dioxide (22-30) mmol/L Anion Gap (10-20) BUN (9-20) mg/dL Creatinine (0.8-1.5) mg/dL Est GFR ( Amer) Est GFR (Non-Af Amer) POC Glucose (mg/dL) 290 H (65-110) mg/dL Random Glucose (75-110) mg/dL Calcium (8.6-10.4) mg/dl Phosphorus (2.5-4.5) mg/dL Magnesium (1.6-2.3) mg/dL Total Bilirubin (0.2-1.3) mg/dL AST (17-59) U/L ALT (21-72) U/L Alkaline Phosphatase (38-126) U/L Total Protein (6.3-8.3) g/dL Albumin (3.5-5.0) g/dL Globulin (2.2-3.9) gm/dL Albumin/Globulin Ratio (1.0-2.1) Complement C2 (1.6-3.5) mg/dL [place] Equ[place] Enceph IgG [place] Equine Enceph IgM E Equine Enceph Interp [place] Equine Enceph IgG [place] Equ[place] Enceph IgM W Equine Enceph Interp [place] Encephalitis IgG [place] Encephalitis IgM [place] Encephal Interp 07/25/17 07/20/17 07/19/17 Range/Units 00:08 06:38 08:31 WBC (4.8-10.8) K/uL RBC (4.40-5.90) Mil/uL Hgb (12.0-18.0) g/dL Hct (35.0-51.0) % MCV (80.0-94.0) fL MCH (27.0-31.0) pg MCHC (33.0-37.0) g/dL RDW (11.5-14.5) % Plt Count (130-400) K/uL MPV (7.2-11.7) fL Neut % (Auto) (50.0-75.0) % Lymph % (Auto) (20.0-40.0) % [place] % (Auto) (0.0-10.0) % Eos % (Auto) (0.0-4.0) % Baso % (Auto) (0.0-2.0) % Neut # (Auto) (1.8-7.0) K/uL Lymph # (Auto) (1.0-4.3) K/uL [place] # (Auto) (0.0-0.8) K/uL Eos # (Auto) (0.0-0.7) K/uL Baso # (Auto) (0.0-0.2) K/uL Neutrophils % (Manual) (50-75) % Lymphocytes % (Manual) (20-40) % Monocytes % (Manual) (0-10) % Eosinophils % (Manual) (0-4) % Basophils % (Manual) (0-2) % Nucleated RBC % (0-0) % Toxic Granulation Platelet Estimate (NORMAL) Hypochromasia (manual) Poikilocytosis (manual Anisocytosis (manual) Puncture Site pCO2 (35-45) mm/Hg pO2 (80-100) mm/Hg HCO3 (21-28) mmol/L ABG pH (7.35-7.45) ABG Total CO2 (22-28) mmol/L ABG O2 Saturation (95-98) % ABG Base Excess (-2.0-3.0) mmol/L ABG Hemoglobin (11.7-17.4) g/dL ABG Carboxyhemoglobin (0.5-1.5) % POC ABG HHb (Measured) (0.0-5.0) % ABG Methemoglobin (0.0-3.0) % Navin Test A-a O2 Difference mm/Hg Respiratory Index Hgb O2 Saturation (95.0-98.0) % Vent Mode Mechanical Rate FiO2 % Tidal Volume PEEP Sodium (132-148) mmol/L Potassium (3.6-5.2) mmol/L Chloride (98-107) mmol/L Carbon Dioxide (22-30) mmol/L Anion Gap (10-20) BUN (9-20) mg/dL Creatinine (0.8-1.5) mg/dL Est GFR ( Amer) Est GFR (Non-Af Amer) POC Glucose (mg/dL) 226 H (65-110) mg/dL Random Glucose (75-110) mg/dL Calcium (8.6-10.4) mg/dl Phosphorus (2.5-4.5) mg/dL Magnesium (1.6-2.3) mg/dL Total Bilirubin (0.2-1.3) mg/dL AST (17-59) U/L ALT (21-72) U/L Alkaline Phosphatase (38-126) U/L Total Protein (6.3-8.3) g/dL Albumin (3.5-5.0) g/dL Globulin (2.2-3.9) gm/dL Albumin/Globulin Ratio (1.0-2.1) Complement C2 2.5 (1.6-3.5) mg/dL [place] Enceph IgG <1:16 [place] Equ[place] Enceph IgM <1:16 E Equine Enceph Interp See note [place] Equine Enceph IgG <1:16 [place] Equ[place] Enceph IgM <1:16 W Equine Enceph Interp See note [place] Encephalitis IgG <1:16 [place] Encephalitis IgM <1:16 [place] Encephal Interp See note Laboratory Results - last 24 hr 07/19/17 07/20/17 07/25/17 08:31 06:38 00:08 WBC RBC Hgb Hct MCV MCH MCHC RDW Plt Count MPV Neut % (Auto) Lymph % (Auto) [place] % (Auto) Eos % (Auto) Baso % (Auto) Neut # (Auto) Lymph # (Auto) [place] # (Auto) Eos # (Auto) Baso # (Auto) Neutrophils % (Manual) Lymphocytes % (Manual) Monocytes % (Manual) Eosinophils % (Manual) Basophils % (Manual) Nucleated RBC % Toxic Granulation Platelet Estimate Hypochromasia (manual) Poikilocytosis (manual Anisocytosis (manual) Puncture Site pCO2 pO2 HCO3 ABG pH ABG Total CO2 ABG O2 Saturation ABG Base Excess ABG Hemoglobin ABG Carboxyhemoglobin POC ABG HHb (Measured) ABG Methemoglobin Navin Test A-a O2 Difference Respiratory Index Hgb O2 Saturation Vent Mode Mechanical Rate FiO2 Tidal Volume PEEP Sodium Potassium Chloride Carbon Dioxide Anion Gap BUN Creatinine Est GFR ( Amer) Est GFR (Non-Af Amer) POC Glucose (mg/dL) 226 H Random Glucose Calcium Phosphorus Magnesium Total Bilirubin AST ALT Alkaline Phosphatase Total Protein Albumin Globulin Albumin/Globulin Ratio Complement C2 2.5 [place] Enceph IgG <1:16 [place] Enceph IgM <1:16 E Equine Enceph Interp See note [place] Equine Enceph IgG <1:16 [place] Equ[place] Enceph IgM <1:16 W Equine Enceph Interp See note [place] Encephalitis IgG <1:16 [place] Encephalitis IgM <1:16 [place] Encephal Interp See note 07/25/17 07/25/17 07/25/17 05:00 05:09 05:16 WBC 14.5 H RBC 2.99 L Hgb 9.6 L Hct 28.0 L MCV 93.8 MCH 32.1 H MCHC 34.3 RDW 16.6 H Plt Count 156 MPV 8.9 Neut % (Auto) 79.1 H Lymph % (Auto) 8.3 L [place] % (Auto) 8.5 Eos % (Auto) 3.3 Baso % (Auto) 0.8 Neut # (Auto) 11.5 H Lymph # (Auto) 1.2 [place] # (Auto) 1.2 H Eos # (Auto) 0.5 Baso # (Auto) 0.1 Neutrophils % (Manual) 81 H Lymphocytes % (Manual) 3 L Monocytes % (Manual) 9 Eosinophils % (Manual) 6 H Basophils % (Manual) 1 Nucleated RBC % 3 H Toxic Granulation Present Platelet Estimate Normal Hypochromasia (manual) Slight Poikilocytosis (manual Slight Anisocytosis (manual) Slight Puncture Site Lr pCO2 45 pO2 155 H HCO3 26.8 ABG pH 7.40 ABG Total CO2 29.3 H ABG O2 Saturation 98.6 H ABG Base Excess 2.4 ABG Hemoglobin 17.1 ABG Carboxyhemoglobin 1.1 POC ABG HHb (Measured) 1.4 ABG Methemoglobin 0.8 Navin Test Pos A-a O2 Difference 74.0 Respiratory Index 0.5 Hgb O2 Saturation 96.7 Vent Mode Prvc Mechanical Rate 14 FiO2 40.0 Tidal Volume 450 PEEP 5 Sodium Potassium Chloride Carbon Dioxide Anion Gap BUN Creatinine Est GFR ( Amer) Est GFR (Non-Af Amer) POC Glucose (mg/dL) 290 H Random Glucose Calcium Phosphorus Magnesium Total Bilirubin AST ALT Alkaline Phosphatase Total Protein Albumin Globulin Albumin/Globulin Ratio Complement C2 [place] Enceph IgG [place] Enceph IgM E Equine Enceph Interp [place] Equine Enceph IgG [place] Equine Enceph IgM W Equine Enceph Interp [place] Encephalitis IgG [place] Encephalitis IgM [place] Encephal Interp 07/25/17 07/25/17 07/25/17 06:27 11:17 18:06 WBC RBC Hgb Hct MCV MCH MCHC RDW Plt Count MPV Neut % (Auto) Lymph % (Auto) [place] % (Auto) Eos % (Auto) Baso % (Auto) Neut # (Auto) Lymph # (Auto) [place] # (Auto) Eos # (Auto) Baso # (Auto) Neutrophils % (Manual) Lymphocytes % (Manual) Monocytes % (Manual) Eosinophils % (Manual) Basophils % (Manual) Nucleated RBC % Toxic Granulation Platelet Estimate Hypochromasia (manual) Poikilocytosis (manual Anisocytosis (manual) Puncture Site pCO2 pO2 HCO3 ABG pH ABG Total CO2 ABG O2 Saturation ABG Base Excess ABG Hemoglobin ABG Carboxyhemoglobin POC ABG HHb (Measured) ABG Methemoglobin Navin Test A-a O2 Difference Respiratory Index Hgb O2 Saturation Vent Mode Mechanical Rate FiO2 Tidal Volume PEEP Sodium 136 Potassium 4.0 Chloride 100 Carbon Dioxide 29 Anion Gap 11 BUN 49 H Creatinine 5.4 H Est GFR ( Amer) 12 Est GFR (Non-Af Amer) 10 POC Glucose (mg/dL) 201 H 227 H Random Glucose 245 H Calcium 8.4 L Phosphorus 3.6 Magnesium 2.2 Total Bilirubin 0.7 AST 46 ALT 53 Alkaline Phosphatase 194 H D Total Protein 5.7 L Albumin 2.6 L Globulin 3.1 Albumin/Globulin Ratio 0.9 L Complement C2 [place] Enceph IgG [place] Enceph IgM E Equine Enceph Interp West Equine Enceph IgG [place] Equine Enceph IgM W Equine Enceph Interp [place] Encephalitis IgG [place] Encephalitis IgM [place] Encephal Interp Critical Care Progress Note - Nutrition Nutrition: Nutrition Category Date Time Status NPO Diet [DIET] Diets 07/20/17 Dinner Active Assessment/Plan - Assessment and Plan (Free Text) Plan: Patient seen and examined at bedside. Patient altered on ventilator. Afebrile overnight b/l air entry (+)S1 (+)S2 abd:soft, nt/nd ext: edema labs reveiwed A/P -AMS: r/o meningitis, continue rx as per ID -Hypoxic respiratory failuer: continue negative balance with HD -ESRD on HD: HD today neg 1500 ml -continue dvt/pud ppx CPAP tolerated -possible extubation in AM prognosis guarded - Date & Time Date: 07/25/17 Time: 18:41
[2017-07-25 18:26] LABS: W.EQUINE ENCEPH.VIRUS IGM <1:16
--- NOTE | 2017-07-25 21:06 | CP.PCM.PN ---
Subjective - Date & Time of Evaluation Date of Evaluation: 07/25/17 Time of Evaluation: 17:30 - Subjective Subjective: Patient seen and examined at bedside. Patient intubated Physical Examination - Physical Exam Head: Positive for: Atraumatic, Normocephalic Pupils: Positive for: PERRL Extroacular Muscles: Positive for: EOMI Conjunctiva: Positive for: Normal Mouth: Positive for: Dry, Other (INTUBATED) Pharnyx: Positive for: Uvular Deviation (right) Neck: Positive for: Normal Range of Motion, Other (shiley catheter in place ) Respiratory/Chest: Positive for: Clear to Auscultation, Good Air Exchange. Negative for: Respiratory Distress Cardiovascular: Positive for: Tachycardic Abdomen: Positive for: Normal Bowel Sounds, Other (peritoneal catheter in place , c/d/i ) Back: Positive for: Normal Inspection Upper Extremity: Positive for: Normal Inspection, NORMAL PULSES, Neurovascularly Intact, Capillary Refill < 2s. Negative for: Cyanosis, Edema, Tenderness, Swelling, Erythema Lower Extremity: Positive for: Normal Inspection, NORMAL PULSES. Negative for: Edema, CALF TENDERNESS, Tenderness, Swelling, Erythema Neurological: Positive for: Other (right facial droop ) Skin: Positive for: Warm, Dry, Normal Color. Negative for: Rashes Psychiatric: Positive for: Alert, Lethargic Objective - Vital Signs/Intake and Output Vital Signs (last 24 hours): Temp Pulse Resp BP Pulse Ox 97.7 F 82 22 139/56 L 100 07/25/17 16:00 07/25/17 20:00 07/25/17 20:00 07/25/17 19:25 07/25/17 20:00 Intake and Output: 07/25/17 07/26/17 18:59 06:59 Intake Total 1010 40 Balance 1010 40 - Medications Medications: Current Medications Acetaminophen (Tylenol 325mg Tab) 650 mg PO Q6 PRN PRN Reason: Fever >100.4 F Last Admin: 07/24/17 07:48 Dose: 650 mg Albuterol/Ipratropium (Duoneb 3 Mg/0.5 Mg (3 Ml) Ud) 3 ml INH RQ6 [facility] Last Admin: 07/25/17 19:41 Dose: 3 ml Artificial Tears (Artificial Tears) 0 ml OD Q3H PRN PRN Reason: Dry eyes Last Admin: 07/25/17 17:46 Dose: 1 drop Aspirin (Aspirin Chewable) 81 mg PO DAILY [facility] Last Admin: 07/25/17 12:37 Dose: 81 mg Calcium Acetate (Phoslo) 667 mg PO TIDCC [facility] Last Admin: 07/25/17 16:21 Dose: 667 mg Carvedilol (Coreg) 6.25 mg PO BID [facility] Last Admin: 07/25/17 17:45 Dose: 6.25 mg Clopidogrel Bisulfate (Plavix) 75 mg PO DAILY [facility] Last Admin: 07/23/17 11:09 Dose: Not Given Epoetin Kumar (Procrit) 10,000 unit SC MWF [facility] Last Admin: 07/25/17 11:25 Dose: 10,000 unit Famotidine (Pepcid) 20 mg PO DAILY [facility] Last Admin: 07/25/17 12:37 Dose: 20 mg Ferric Sodium Gluconate Complex (Ferrlecit) 125 mg IVPB DAILY [facility] Stop: 08/03/17 10:01 Meropenem 500 mg/ Sodium (Chloride) 100 mls @ 100 mls/hr IVPB Q12H [facility] PRN Reason: Protocol Last Admin: 07/25/17 12:37 Dose: 100 mls/hr Acyclovir 200 mg/ Sodium (Chloride) 100 mls @ 100 mls/hr IV Q12H [facility] PRN Reason: Protocol Last Admin: 07/25/17 13:56 Dose: 100 mls/hr Vancomycin/Sodium Chloride (Vancomycin 1 Gm/Ns 200 Ml) 1 gm in 200 mls @ 166.7 mls[facility] Reason: Protocol Stop: 08/02/17 09:01 Vancomycin/Sodium Chloride (Vancomycin 1 Gm/Ns 200 Ml) 1 gm in 200 mls @ 133 mls/hr IVPB ONCE ONE PRN Reason: Protocol Stop: 07/26/17 14:30 Insulin Human Regular (Novolin R) 0 unit SC Q6 [facility] PRN Reason: Protocol Last Admin: 07/25/17 18:18 Dose: 4 unit Levetiracetam (Keppra) 250 mg PO BID [facility] Last Admin: 07/25/17 17:45 Dose: 250 mg Levothyroxine Sodium (Synthroid) 50 mcg PO DAILY@0630 [facility] Last Admin: 07/25/17 05:52 Dose: 50 mcg Losartan Potassium (Cozaar) 25 mg PO DAILY [facility] Last Admin: 07/25/17 15:25 Dose: 25 mg Modafinil (Provigil) 50 mg PO DAILY [facility] Last Admin: 07/25/17 12:37 Dose: 50 mg Vitamin A (Vitamin A & D Oint Ud Foilpak) 1 ea TOP BID [facility] Last Admin: 07/25/17 17:46 Dose: 1 ea - Labs Labs: 07/25/17 05:00 07/25/17 06:27 PT 11.2 SECONDS (9.7-12.2) 07/22/17 20:01 INR 1.0 07/22/17 20:01 APTT 35 SECONDS (21-34) H 07/22/17 20:01 Assessment and Plan - Assessment and Plan (Free Text) Assessment: (1) Toxic metabolic encephalopathy Assessment & Plan: CT HEAD REPEAT -UNREMARKABLE. CONTINUE IV VANCOMYCIN 1 G POST-EACH HEMODIALYSIS TTS.. CONTINUE MERREM 500 MG EVERY 12 HOURLY. CONTINUE iv ACYCLOVIR 200 MG iv EVERY 12 HOURLY. Status: Acute (2) Yu palsy Assessment & Plan: CT HEAD REPEAT -UNREMARKABLE. CONTINUE IV VANCOMYCIN 1 G POST-EACH HEMODIALYSIS TTS. PER RN MS BALDERAS HEMODIALYSIS CHANGED TO MWF PER DR LONG CONTINUE MERREM 500 MG EVERY 12 HOURLY. CONTINUE iv ACYCLOVIR 200 MG iv EVERY 12 HOURLY. 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 Status: Acute (5) Heart block AV complete Status: Acute
[2017-07-26] MEDS: Albuterol-Ipratrop 3 mg / 0.5 (3 ml) UD INH SCH ×4 (01:08→19:40)
[2017-07-26 05:36] LABS: ABG ALLEN TEST POS; ARTERIAL BLOOD GAS HEMOGLOBIN 11.6 g/dL (11.7-17.4); ARTERIAL BLOOD GAS O2 SAT 98.3 % (95-98); ARTERIAL BLOOD GAS PCO2 42 mm/Hg (35-45); ARTERIAL BLOOD GAS PH 7.44 (7.35-7.45); ARTERIAL BLOOD GAS PO2 143 mm/Hg (80-100); ARTERIAL BLOOD GAS TCO2 29.8 mmol/L (22-28)
[2017-07-26] MEDS: Levothyroxine 50 MCG TAB PO SCH (05:52)
[2017-07-26] MEDS: (Novolin R) Insulin Human Regular 100 units/ml vial SC SCH ×5 (06:14→23:57)
[2017-07-26 06:27] LABS: BASO # 0.1 K/uL (0.0-0.2); BASO % 0.7 % (0.0-2.0); EOS # 0.5 K/uL (0.0-0.7); EOS % 3.3 % (0.0-4.0); HEMOGLOBIN 9.7 g/dL (12.0-18.0); LYMPH # 1.6 K/uL (1.0-4.3); MEAN CELL VOLUME 95.9 fL (80.0-94.0); MEAN CORPUSCULAR HEMOGLOBIN 31.9 pg (27.0-31.0); MEAN CORPUSCULAR HGB CONC 33.3 g/dL (33.0-37.0); MEAN PLATELET VOLUME 9.4 fL (7.2-11.7); MONO # 1.4 K/uL (0.0-0.8); MONO % 10.1 % (0.0-10.0); NEUT # 10.6 K/uL (1.8-7.0); NEUT % 74.9 % (50.0-75.0); RBC 3.03 Mil/uL (4.40-5.90); RED CELL DISTRIBUTION WIDTH 16.6 % (11.5-14.5); WHITE BLOOD COUNT 14.2 K/uL (4.8-10.8)
[2017-07-26 06:39] LABS: ALB/GLOB RATIO 0.9 (1.0-2.1); ALBUMIN 2.6 g/dL (3.5-5.0); CALCIUM 8.4 mg/dl (8.6-10.4)
--- NOTE | 2017-07-26 08:06 | CP.PCM.PN ---
Subjective - Date & Time of Evaluation Date of Evaluation: 07/25/17 Time of Evaluation: 08:05 - Subjective Subjective: Patient is likely responding. Receiving dialysis. No chest pain. On ventilator. Family at bedside. On examination: Vital signs stable. Good air entry regular heart sounds nontender abdomen Receiving hemodialysis Assessment and recommendation: 77-year-old female admitted with altered mental status. Neurologically worsening. Slowly improvement noted. Continue the supportive treatment Objective - Vital Signs/Intake and Output Vital Signs (last 24 hours): Temp Pulse Resp BP Pulse Ox 98.6 F 76 14 165/66 H 97 07/26/17 04:00 07/26/17 07:24 07/26/17 07:24 07/26/17 07:24 07/26/17 07:24 Intake and Output: 07/26/17 07/26/17 06:59 18:59 Intake Total 680 40 Balance 680 40 - Medications Medications: Current Medications Acetaminophen (Tylenol 325mg Tab) 650 mg PO Q6 PRN PRN Reason: Fever >100.4 F Last Admin: 07/24/17 07:48 Dose: 650 mg Albuterol/Ipratropium (Duoneb 3 Mg/0.5 Mg (3 Ml) Ud) 3 ml INH RQ6 [facility] Last Admin: 07/26/17 01:08 Dose: 3 ml Artificial Tears (Artificial Tears) 0 ml OD Q3H PRN PRN Reason: Dry eyes Last Admin: 07/25/17 17:46 Dose: 1 drop Aspirin (Aspirin Chewable) 81 mg PO DAILY [facility] Last Admin: 07/25/17 12:37 Dose: 81 mg Calcium Acetate (Phoslo) 667 mg PO TIDCC [facility] Last Admin: 07/25/17 16:21 Dose: 667 mg Carvedilol (Coreg) 6.25 mg PO BID [facility] Last Admin: 07/25/17 17:45 Dose: 6.25 mg Clopidogrel Bisulfate (Plavix) 75 mg PO DAILY [facility] Last Admin: 07/23/17 11:09 Dose: Not Given Epoetin Kumar (Procrit) 10,000 unit SC MWF [facility] Last Admin: 07/25/17 11:25 Dose: 10,000 unit Famotidine (Pepcid) 20 mg PO DAILY [facility] Last Admin: 07/25/17 12:37 Dose: 20 mg Ferric Sodium Gluconate Complex (Ferrlecit) 125 mg IVPB DAILY [facility] Stop: 08/03/17 10:01 Meropenem 500 mg/ Sodium (Chloride) 100 mls @ 100 mls/hr IVPB Q12H [facility] PRN Reason: Protocol Last Admin: 07/25/17 23:00 Dose: 100 mls/hr Acyclovir 200 mg/ Sodium (Chloride) 100 mls @ 100 mls/hr IV Q12H [facility] PRN Reason: Protocol Last Admin: 07/26/17 00:00 Dose: 100 mls/hr Vancomycin/Sodium Chloride (Vancomycin 1 Gm/Ns 200 Ml) 1 gm in 200 mls @ 166.7 mls/hr IVPB MWF [facility] PRN Reason: Protocol Stop: 08/02/17 09:01 Vancomycin/Sodium Chloride (Vancomycin 1 Gm/Ns 200 Ml) 1 gm in 200 mls @ 133 mls/hr IVPB ONCE ONE PRN Reason: Protocol Stop: 07/26/17 14:30 Insulin Human Regular (Novolin R) 0 unit SC Q6 [facility] PRN Reason: Protocol Last Admin: 07/26/17 06:14 Dose: 4 unit Levetiracetam (Keppra) 250 mg PO BID [facility] Last Admin: 07/25/17 17:45 Dose: 250 mg Levothyroxine Sodium (Synthroid) 50 mcg PO DAILY@0630 [facility] Last Admin: 07/26/17 05:52 Dose: 50 mcg Losartan Potassium (Cozaar) 25 mg PO DAILY [facility] Last Admin: 07/25/17 15:25 Dose: 25 mg Modafinil (Provigil) 50 mg PO DAILY [facility] Last Admin: 07/25/17 12:37 Dose: 50 mg Vitamin A ([facility]) 1 ea TOP BID [facility] Last Admin: 07/25/17 17:46 Dose: 1 ea - Labs Labs: 07/26/17 06:13 07/26/17 06:13 PT 11.2 SECONDS (9.7-12.2) 07/22/17 20:01 INR 1.0 07/22/17 20:01 APTT 35 SECONDS (21-34) H 07/22/17 20:01
--- NOTE | 2017-07-26 08:06 | CP.PCM.PN ---
Subjective - Date & Time of Evaluation Date of Evaluation: 07/26/17 Time of Evaluation: 08:06 - Subjective Subjective: Patient is likely responding. Receiving dialysis. No chest pain. On ventilator. Family at bedside. On examination: Vital signs stable. Good air entry regular heart sounds nontender abdomen Receiving hemodialysis Assessment and recommendation: 77-year-old female admitted with altered mental status. Neurologically worsening. Slowly improvement noted. Continue the supportive treatment Objective - Vital Signs/Intake and Output Vital Signs (last 24 hours): Temp Pulse Resp BP Pulse Ox 98.6 F 76 14 165/66 H 97 07/26/17 04:00 07/26/17 07:24 07/26/17 07:24 07/26/17 07:24 07/26/17 07:24 Intake and Output: 07/26/17 07/26/17 06:59 18:59 Intake Total 680 40 Balance 680 40 - Medications Medications: Current Medications Acetaminophen (Tylenol 325mg Tab) 650 mg PO Q6 PRN PRN Reason: Fever >100.4 F Last Admin: 07/24/17 07:48 Dose: 650 mg Albuterol/Ipratropium (Duoneb 3 Mg/0.5 Mg (3 Ml) Ud) 3 ml INH RQ6 [facility] Last Admin: 07/26/17 01:08 Dose: 3 ml Artificial Tears (Artificial Tears) 0 ml OD Q3H PRN PRN Reason: Dry eyes Last Admin: 07/25/17 17:46 Dose: 1 drop Aspirin (Aspirin Chewable) 81 mg PO DAILY [facility] Last Admin: 07/25/17 12:37 Dose: 81 mg Calcium Acetate (Phoslo) 667 mg PO TIDCC [facility] Last Admin: 07/25/17 16:21 Dose: 667 mg Carvedilol (Coreg) 6.25 mg PO BID [facility] Last Admin: 07/25/17 17:45 Dose: 6.25 mg Clopidogrel Bisulfate (Plavix) 75 mg PO DAILY [facility] Last Admin: 07/23/17 11:09 Dose: Not Given Epoetin Kumar (Procrit) 10,000 unit SC MWF [facility] Last Admin: 07/25/17 11:25 Dose: 10,000 unit Famotidine (Pepcid) 20 mg PO DAILY [facility] Last Admin: 07/25/17 12:37 Dose: 20 mg Ferric Sodium Gluconate Complex (Ferrlecit) 125 mg IVPB DAILY [facility] Stop: 08/03/17 10:01 Meropenem 500 mg/ Sodium (Chloride) 100 mls @ 100 mls/hr IVPB Q12H [facility] PRN Reason: Protocol Last Admin: 07/25/17 23:00 Dose: 100 mls/hr Acyclovir 200 mg/ Sodium (Chloride) 100 mls @ 100 mls/hr IV Q12H [facility] PRN Reason: Protocol Last Admin: 07/26/17 00:00 Dose: 100 mls/hr Vancomycin/Sodium Chloride (Vancomycin 1 Gm/Ns 200 Ml) 1 gm in 200 mls @ 166.7 mls/hr IVPB MWF [facility] PRN Reason: Protocol Stop: 08/02/17 09:01 Vancomycin/Sodium Chloride (Vancomycin 1 Gm/Ns 200 Ml) 1 gm in 200 mls @ 133 mls/hr IVPB ONCE ONE PRN Reason: Protocol Stop: 07/26/17 14:30 Insulin Human Regular (Novolin R) 0 unit SC Q6 [facility] PRN Reason: Protocol Last Admin: 07/26/17 06:14 Dose: 4 unit Levetiracetam (Keppra) 250 mg PO BID [facility] Last Admin: 07/25/17 17:45 Dose: 250 mg Levothyroxine Sodium (Synthroid) 50 mcg PO DAILY@0630 [facility] Last Admin: 07/26/17 05:52 Dose: 50 mcg Losartan Potassium (Cozaar) 25 mg PO DAILY [facility] Last Admin: 07/25/17 15:25 Dose: 25 mg Modafinil (Provigil) 50 mg PO DAILY [facility] Last Admin: 07/25/17 12:37 Dose: 50 mg Vitamin A ([facility] 1 ea TOP BID [facility] Last Admin: 07/25/17 17:46 Dose: 1 ea - Labs Labs: 07/26/17 06:13 07/26/17 06:13 PT 11.2 SECONDS (9.7-12.2) 07/22/17 20:01 INR 1.0 07/22/17 20:01 APTT 35 SECONDS (21-34) H 07/22/17 20:01
--- NOTE | 2017-07-26 08:38 | CP.CCUPN ---
<Tameka Chin - Last Filed: 07/26/17 08:36> CCU Subjective - Physician Review Subjective (Free Text): Patient seen and examined at bedside. Patient intubated on [facility] current settings : 14/40/450/ 5. Patient is responsive today. Follows commands. Clinically patient is improving. CCU Objective - Vital Signs / Intake & Output Vital Signs (Last 4 hours): Vital Signs Temp Pulse Pulse Resp BP BP Pulse Ox 07/26/17 08:30 74 156/66 H 07/26/17 08:15 73 167/62 H 07/26/17 08:00 98.4 F 72 71 16 164/62 H 100 07/26/17 07:59 73 17 164/62 H 07/26/17 07:54 78 165/66 H 07/26/17 07:24 76 14 165/66 H 97 07/26/17 07:00 78 16 100 07/26/17 06:52 82 24 162/63 H 07/26/17 06:00 76 15 99 07/26/17 05:33 78 15 173/69 H 95 07/26/17 05:26 78 22 182/72 H 98 07/26/17 05:00 75 16 99 Intake and Output (Last 8hrs): Intake & Output 07/25/17 07/26/17 07/26/17 22:59 06:59 14:59 Intake Total 520 520 80 Balance 520 520 80 Intake: Intake, IV Amount 200 Left Antecubital side- 200 port Tube Feeding 320 320 80 Other 200 Other: # Bowel Movements 1 - Physical Exam Head: Positive for: Atraumatic, Normocephalic Pupils: Positive for: PERRL Extroacular Muscles: Positive for: EOMI Conjunctiva: Positive for: Normal Mouth: Positive for: Dry, Other (INTUBATED) Neck: Positive for: Normal Range of Motion, Other (shiley catheter in place ) Respiratory/Chest: Positive for: Clear to Auscultation, Good Air Exchange. Negative for: Respiratory Distress Cardiovascular: Positive for: Tachycardic Abdomen: Positive for: Normal Bowel Sounds, Other (peritoneal catheter in place , c/d/i ) Back: Positive for: Normal Inspection Upper Extremity: Positive for: Normal Inspection, NORMAL PULSES, Neurovascularly Intact, Capillary Refill < 2s. Negative for: Cyanosis, Edema, Tenderness, Swelling, Erythema Lower Extremity: Positive for: Normal Inspection, NORMAL PULSES. Negative for: Edema, CALF TENDERNESS, Tenderness, Swelling, Erythema Neurological: Positive for: Other (right facial droop ) Skin: Positive for: Warm, Dry, Normal Color. Negative for: Rashes Psychiatric: Positive for: Alert, Lethargic - Medications Active Medications: Active Medications Generic Name Dose Route Start Last Admin Trade Name Freq PRN Reason Stop Dose Admin Acetaminophen 650 mg 07/24/17 07:42 07/24/17 07:48 Tylenol 325mg Tab PO 650 mg Q6 PRN Administration Fever >100.4 F Albuterol/Ipratropium 3 ml 07/13/17 14:00 07/26/17 07:45 Duoneb 3 Mg/0.5 Mg (3 Ml) Ud INH 3 ml RQ6 JAYLA Administration Artificial Tears 0 ml 07/13/17 22:00 07/25/17 17:46 Artificial Tears OD 1 drop Q3H PRN Administration Dry eyes Aspirin 81 mg 07/15/17 10:00 07/25/17 12:37 Aspirin Chewable PO 81 mg DAILY JAYLA Administration Calcium Acetate 667 mg 07/13/17 12:00 07/26/17 08:09 Phoslo PO Not Given TIDCC JAYLA Carvedilol 6.25 mg 07/23/17 18:00 07/25/17 17:45 Coreg PO 6.25 mg BID JAYLA Administration Clopidogrel Bisulfate 75 mg 07/15/17 10:00 07/23/17 11:09 Plavix PO Not Given DAILY JAYLA Epoetin Kumar 10,000 unit 07/16/17 09:00 07/25/17 11:25 Procrit SC 10,000 unit MWF JAYLA Administration Famotidine 20 mg 07/25/17 12:15 07/25/17 12:37 Pepcid PO 20 mg DAILY JAYLA Administration Ferric Sodium Gluconate Complex 125 mg 07/26/17 10:00 Ferrlecit IVPB 08/03/17 10:01 DAILY [facility] Meropenem 500 mg/ Sodium 100 mls @ 100 mls/hr 07/18/17 23:30 07/25/17 23:00 Chloride IVPB 100 mls/hr Q12H JAYLA Administration Protocol Acyclovir 200 mg/ Sodium 100 mls @ 100 mls/hr 07/22/17 13:00 07/26/17 00:00 Chloride IV 100 mls/hr Q12H JAYLA Administration Protocol Vancomycin/Sodium Chloride 1 gm in 200 mls @ 166.7 mls/hr 07/28/17 09:00 Vancomycin 1 Gm/Ns 200 Ml IVPB 08/02/17 09:01 MWF JAYLA Protocol Vancomycin/Sodium Chloride 1 gm in 200 mls @ 133 mls/hr 07/26/17 13:00 Vancomycin 1 Gm/Ns 200 Ml IVPB 07/26/17 14:30 ONCE ONE Protocol Insulin Human Regular 0 unit 07/15/17 07:32 07/26/17 06:14 Novolin R SC 4 unit Q6 JAYLA Administration Protocol Levetiracetam 250 mg 07/24/17 18:30 07/25/17 17:45 Keppra PO 250 mg BID JAYLA Administration Levothyroxine Sodium 50 mcg 07/14/17 06:30 07/26/17 05:52 Synthroid PO 50 mcg DAILY@0630 JAYLA Administration Losartan Potassium 25 mg 07/25/17 15:00 07/25/17 15:25 Cozaar PO 25 mg DAILY JAYLA Administration Modafinil 50 mg 07/24/17 10:00 07/25/17 12:37 Provigil PO 50 mg DAILY JAYLA Administration Vitamin A 1 ea 07/19/17 18:00 07/25/17 17:46 Vitamin A & D Oint Ud Foilpak TOP 1 ea BID JAYLA Administration - Patient Studies Lab Studies: Microbiology Studies 07/23/17 06:09 Blood Culture - Preliminary Blood-Thru Central Line NO GROWTH AFTER 3 DAYS Lab Studies 07/26/17 07/26/17 07/26/17 Range/Units 06:13 06:13 05:29 WBC 14.2 H (4.8-10.8) K/uL RBC 3.03 L (4.40-5.90) Mil/uL Hgb 9.7 L (12.0-18.0) g/dL Hct 29.1 L (35.0-51.0) % MCV 95.9 H D (80.0-94.0) fL MCH 31.9 H (27.0-31.0) pg MCHC 33.3 (33.0-37.0) g/dL RDW 16.6 H (11.5-14.5) % Plt Count 156 (130-400) K/uL MPV 9.4 (7.2-11.7) fL Neut % (Auto) 74.9 (50.0-75.0) % Lymph % (Auto) 11.0 L (20.0-40.0) % Liberty % (Auto) 10.1 H (0.0-10.0) % Eos % (Auto) 3.3 (0.0-4.0) % Baso % (Auto) 0.7 (0.0-2.0) % Neut # (Auto) 10.6 H (1.8-7.0) K/uL Lymph # (Auto) 1.6 (1.0-4.3) K/uL Liberty # (Auto) 1.4 H (0.0-0.8) K/uL Eos # (Auto) 0.5 (0.0-0.7) K/uL Baso # (Auto) 0.1 (0.0-0.2) K/uL Puncture Site pCO2 (35-45) mm/Hg pO2 (80-100) mm/Hg HCO3 (21-28) mmol/L ABG pH (7.35-7.45) ABG Total CO2 (22-28) mmol/L ABG O2 Saturation (95-98) % ABG Base Excess (-2.0-3.0) mmol/L ABG Hemoglobin (11.7-17.4) g/dL ABG Carboxyhemoglobin (0.5-1.5) % POC ABG HHb (Measured) (0.0-5.0) % ABG Methemoglobin (0.0-3.0) % Navin Test A-a O2 Difference mm/Hg Respiratory Index Hgb O2 Saturation (95.0-98.0) % Vent Mode Mechanical Rate FiO2 % Tidal Volume PEEP Sodium 137 (132-148) mmol/L Potassium 3.8 (3.6-5.2) mmol/L Chloride 101 (98-107) mmol/L Carbon Dioxide 27 (22-30) mmol/L Anion Gap 13 (10-20) BUN 39 H (9-20) mg/dL Creatinine 4.6 H (0.8-1.5) mg/dL Est GFR ( Amer) 15 Est GFR (Non-Af Amer) 12 POC Glucose (mg/dL) 242 H (65-110) mg/dL Random Glucose 224 H (75-110) mg/dL Calcium 8.4 L (8.6-10.4) mg/dl Phosphorus 3.0 (2.5-4.5) mg/dL Magnesium 2.2 (1.6-2.3) mg/dL Total Bilirubin 0.7 (0.2-1.3) mg/dL AST 50 (17-59) U/L ALT 51 (21-72) U/L Alkaline Phosphatase 168 H (38-126) U/L Total Protein 5.7 L (6.3-8.3) g/dL Albumin 2.6 L (3.5-5.0) g/dL Globulin 3.1 (2.2-3.9) gm/dL Albumin/Globulin Ratio 0.9 L (1.0-2.1) East Equine Enceph IgG East Equine Enceph IgM E Equine Enceph Interp West Equine Enceph IgG West Equine Enceph IgM W Equine Enceph Interp Calif Encephalitis IgG Calif Encephalitis IgM Calif Encephal Interp 07/26/17 07/25/17 07/25/17 Range/Units 05:05 23:44 18:06 WBC (4.8-10.8) K/uL RBC (4.40-5.90) Mil/uL Hgb (12.0-18.0) g/dL Hct (35.0-51.0) % MCV (80.0-94.0) fL MCH (27.0-31.0) pg MCHC (33.0-37.0) g/dL RDW (11.5-14.5) % Plt Count (130-400) K/uL MPV (7.2-11.7) fL Neut % (Auto) (50.0-75.0) % Lymph % (Auto) (20.0-40.0) % Liberty % (Auto) (0.0-10.0) % Eos % (Auto) (0.0-4.0) % Baso % (Auto) (0.0-2.0) % Neut # (Auto) (1.8-7.0) K/uL Lymph # (Auto) (1.0-4.3) K/uL Liberty # (Auto) (0.0-0.8) K/uL Eos # (Auto) (0.0-0.7) K/uL Baso # (Auto) (0.0-0.2) K/uL Puncture Site Lr pCO2 42 (35-45) mm/Hg pO2 143 H (80-100) mm/Hg HCO3 28.0 (21-28) mmol/L ABG pH 7.44 (7.35-7.45) ABG Total CO2 29.8 H (22-28) mmol/L ABG O2 Saturation 98.3 H (95-98) % ABG Base Excess 3.9 H (-2.0-3.0) mmol/L ABG Hemoglobin 11.6 L (11.7-17.4) g/dL ABG Carboxyhemoglobin 1.1 (0.5-1.5) % POC ABG HHb (Measured) 1.7 (0.0-5.0) % ABG Methemoglobin 1.0 (0.0-3.0) % Navin Test Pos A-a O2 Difference 90.0 mm/Hg Respiratory Index 0.6 Hgb O2 Saturation 96.2 (95.0-98.0) % Vent Mode Prvc Mechanical Rate 14 FiO2 40.0 % Tidal Volume 450 PEEP 5 Sodium (132-148) mmol/L Potassium (3.6-5.2) mmol/L Chloride (98-107) mmol/L Carbon Dioxide (22-30) mmol/L Anion Gap (10-20) BUN (9-20) mg/dL Creatinine (0.8-1.5) mg/dL Est GFR ( Amer) Est GFR (Non-Af Amer) POC Glucose (mg/dL) 183 H 227 H (65-110) mg/dL Random Glucose (75-110) mg/dL Calcium (8.6-10.4) mg/dl Phosphorus (2.5-4.5) mg/dL Magnesium (1.6-2.3) mg/dL Total Bilirubin (0.2-1.3) mg/dL AST (17-59) U/L ALT (21-72) U/L Alkaline Phosphatase (38-126) U/L Total Protein (6.3-8.3) g/dL Albumin (3.5-5.0) g/dL Globulin (2.2-3.9) gm/dL Albumin/Globulin Ratio (1.0-2.1) East Equine Enceph IgG East Equine Enceph IgM E Equine Enceph Interp West Equine Enceph IgG West Equine Enceph IgM W Equine Enceph Interp Calif Encephalitis IgG Calif Encephalitis IgM Calif Encephal Interp 07/25/17 07/20/17 Range/Units 11:17 06:38 WBC (4.8-10.8) K/uL RBC (4.40-5.90) Mil/uL Hgb (12.0-18.0) g/dL Hct (35.0-51.0) % MCV (80.0-94.0) fL MCH (27.0-31.0) pg MCHC (33.0-37.0) g/dL RDW (11.5-14.5) % Plt Count (130-400) K/uL MPV (7.2-11.7) fL Neut % (Auto) (50.0-75.0) % Lymph % (Auto) (20.0-40.0) % Liberty % (Auto) (0.0-10.0) % Eos % (Auto) (0.0-4.0) % Baso % (Auto) (0.0-2.0) % Neut # (Auto) (1.8-7.0) K/uL Lymph # (Auto) (1.0-4.3) K/uL Liberty # (Auto) (0.0-0.8) K/uL Eos # (Auto) (0.0-0.7) K/uL Baso # (Auto) (0.0-0.2) K/uL Puncture Site pCO2 (35-45) mm/Hg pO2 (80-100) mm/Hg HCO3 (21-28) mmol/L ABG pH (7.35-7.45) ABG Total CO2 (22-28) mmol/L ABG O2 Saturation (95-98) % ABG Base Excess (-2.0-3.0) mmol/L ABG Hemoglobin (11.7-17.4) g/dL ABG Carboxyhemoglobin (0.5-1.5) % POC ABG HHb (Measured) (0.0-5.0) % ABG Methemoglobin (0.0-3.0) % Navin Test A-a O2 Difference mm/Hg Respiratory Index Hgb O2 Saturation (95.0-98.0) % Vent Mode Mechanical Rate FiO2 % Tidal Volume PEEP Sodium (132-148) mmol/L Potassium (3.6-5.2) mmol/L Chloride (98-107) mmol/L Carbon Dioxide (22-30) mmol/L Anion Gap (10-20) BUN (9-20) mg/dL Creatinine (0.8-1.5) mg/dL Est GFR ( Amer) Est GFR (Non-Af Amer) POC Glucose (mg/dL) 201 H (65-110) mg/dL Random Glucose (75-110) mg/dL Calcium (8.6-10.4) mg/dl Phosphorus (2.5-4.5) mg/dL Magnesium (1.6-2.3) mg/dL Total Bilirubin (0.2-1.3) mg/dL AST (17-59) U/L ALT (21-72) U/L Alkaline Phosphatase (38-126) U/L Total Protein (6.3-8.3) g/dL Albumin (3.5-5.0) g/dL Globulin (2.2-3.9) gm/dL Albumin/Globulin Ratio (1.0-2.1) East Equine Enceph IgG <1:16 East Equine Enceph IgM <1:16 E Equine Enceph Interp See note West Equine Enceph IgG <1:16 West Equine Enceph IgM <1:16 W Equine Enceph Interp See note [place] Encephalitis IgG <1:16 [place] Encephalitis IgM <1:16 [place] Encephal Interp See note Laboratory Results - last 24 hr 07/20/17 07/25/17 07/25/17 06:38 11:17 18:06 WBC RBC Hgb Hct MCV MCH MCHC RDW Plt Count MPV Neut % (Auto) Lymph % (Auto) Liberty % (Auto) Eos % (Auto) Baso % (Auto) Neut # (Auto) Lymph # (Auto) Liberty # (Auto) Eos # (Auto) Baso # (Auto) Puncture Site pCO2 pO2 HCO3 ABG pH ABG Total CO2 ABG O2 Saturation ABG Base Excess ABG Hemoglobin ABG Carboxyhemoglobin POC ABG HHb (Measured) ABG Methemoglobin Navin Test A-a O2 Difference Respiratory Index Hgb O2 Saturation Vent Mode Mechanical Rate FiO2 Tidal Volume PEEP Sodium Potassium Chloride Carbon Dioxide Anion Gap BUN Creatinine Est GFR ( Amer) Est GFR (Non-Af Amer) POC Glucose (mg/dL) 201 H 227 H Random Glucose Calcium Phosphorus Magnesium Total Bilirubin AST ALT Alkaline Phosphatase Total Protein Albumin Globulin Albumin/Globulin Ratio East Equine Enceph IgG <1:16 East Equine Enceph IgM <1:16 E Equine Enceph Interp See note West Equine Enceph IgG <1:16 West Equine Enceph IgM <1:16 W Equine Enceph Interp See note [place] Encephalitis IgG <1:16 [place] Encephalitis IgM <1:16 [place] Encephal Interp See note 07/25/17 07/26/17 07/26/17 23:44 05:05 05:29 WBC RBC Hgb Hct MCV MCH MCHC RDW Plt Count MPV Neut % (Auto) Lymph % (Auto) Liberty % (Auto) Eos % (Auto) Baso % (Auto) Neut # (Auto) Lymph # (Auto) Liberty # (Auto) Eos # (Auto) Baso # (Auto) Puncture Site Lr pCO2 42 pO2 143 H HCO3 28.0 ABG pH 7.44 ABG Total CO2 29.8 H ABG O2 Saturation 98.3 H ABG Base Excess 3.9 H ABG Hemoglobin 11.6 L ABG Carboxyhemoglobin 1.1 POC ABG HHb (Measured) 1.7 ABG Methemoglobin 1.0 Navin Test Pos A-a O2 Difference 90.0 Respiratory Index 0.6 Hgb O2 Saturation 96.2 Vent Mode Prvc Mechanical Rate 14 FiO2 40.0 Tidal Volume 450 PEEP 5 Sodium Potassium Chloride Carbon Dioxide Anion Gap BUN Creatinine Est GFR ( Amer) Est GFR (Non-Af Amer) POC Glucose (mg/dL) 183 H 242 H Random Glucose Calcium Phosphorus Magnesium Total Bilirubin AST ALT Alkaline Phosphatase Total Protein Albumin Globulin Albumin/Globulin Ratio East Equine Enceph IgG East Equine Enceph IgM E Equine Enceph Interp West Equine Enceph IgG West Equine Enceph IgM W Equine Enceph Interp [place] Encephalitis IgG Calif Encephalitis IgM Calif Encephal Interp 07/26/17 07/26/17 06:13 06:13 WBC 14.2 H RBC 3.03 L Hgb 9.7 L Hct 29.1 L MCV 95.9 H D MCH 31.9 H MCHC 33.3 RDW 16.6 H Plt Count 156 MPV 9.4 Neut % (Auto) 74.9 Lymph % (Auto) 11.0 L Liberty % (Auto) 10.1 H Eos % (Auto) 3.3 Baso % (Auto) 0.7 Neut # (Auto) 10.6 H Lymph # (Auto) 1.6 Liberty # (Auto) 1.4 H Eos # (Auto) 0.5 Baso # (Auto) 0.1 Puncture Site pCO2 pO2 HCO3 ABG pH ABG Total CO2 ABG O2 Saturation ABG Base Excess ABG Hemoglobin ABG Carboxyhemoglobin POC ABG HHb (Measured) ABG Methemoglobin Navin Test A-a O2 Difference Respiratory Index Hgb O2 Saturation Vent Mode Mechanical Rate FiO2 Tidal Volume PEEP Sodium 137 Potassium 3.8 Chloride 101 Carbon Dioxide 27 Anion Gap 13 BUN 39 H Creatinine 4.6 H Est GFR ( Amer) 15 Est GFR (Non-Af Amer) 12 POC Glucose (mg/dL) Random Glucose 224 H Calcium 8.4 L Phosphorus 3.0 Magnesium 2.2 Total Bilirubin 0.7 AST 50 ALT 51 Alkaline Phosphatase 168 H Total Protein 5.7 L Albumin 2.6 L Globulin 3.1 Albumin/Globulin Ratio 0.9 L [place] Equine Enceph IgG East Equine Enceph IgM E Equine Enceph Interp West Equine Enceph IgG West Equine Enceph IgM W Equine Enceph Interp [place] Encephalitis IgG Calif Encephalitis IgM Calif Encephal Interp Fingerstick Blood Sugar Results: 242 Critical Care Progress Note - Nutrition Nutrition: Nutrition Category Date Time Status NPO Diet [DIET] Diets 07/20/17 Dinner Active Assessment/Plan - Assessment and Plan (Free Text) Assessment: This is a 76 year old male with HTN, DM, Hypercholesterimia, CAD, CABG with 5 vessel disease, ESRD on peritoneal dialysis, with symptomatic bradycardia s/p pacemaker placed [address] Valencia, hypothyroidism, who presented to the ED on 07/28 for dysphagia and slurred speech, was diagnosed with Yu's Palsy. Patient is with persistent AMS 2/2 Metabolic Encephalopathy. HD x 2 session on , 07/23, s/p catheter placement 07/22/17. Plan: Neuro: Intubated 2/2 Respiratory Failure [facility] 14/[facility]5 A: Metabolic Encephalopathy Neurology consulted - Dr. 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 - Started Keppra 250mg PO BID A: Right Yu's Palsy Neurology: Dr. Thompson - on board Imaging: - Head CT: 1. Confluent area of low attenuation within the right frontal subcortical white matter suggestive for chronic ischemic change. 2. Scattered areas of chronic microvascular ischemic change. 3. Prominent ventricles. 4. No evidence of acute intracranial hemorrhage. If there is persistent concern for acute ischemic change, correlation with MRI is recommended. - Head/ Neck CTA: There is nonvisualization origin left vertebral artery. Left vertebral artery reconstitutes at approximately the lower C5 level and is seen on as a patent vessel to the level of the C2 segment where the vertebral artery is no longer visualized and appears to be occluded. Findings could represent sequela of atherosclerotic disease or dissection. Clinical correlation recommended. Right vertebral artery is patent throughout. The common carotid arteries, carotid bifurcations and internal carotid artery is widely patent. There is a calcified atherosclerotic plaque both cavernous carotid segments. The the at anterior middle and posterior cerebral arteries are patent. No evidence of large aneurysm nor vascular malformation. - Not able to have MRI - due to recent PPM placement - 07/[address]: No intracranial mass, hemorrhage or evidence of acute infarct. Right frontal encephalomalacia, possibly old MCA territory infarct. Small nonspecific right mastoid effusion. Chronic white matter ischemic change. A: Hx CVA -ASA 81mg, Plavix 75mg (held), Crestor 10mg Cardio: A: HTN, CAD, CABG with 5 vessel disease, with symptomatic bradycardia s/p pacemaker placed [address] Valencia - Recent ECHO performed in Dr. Elizabeth's office as outpatient - ASA 81mg, Plavix 75mg, Coreg 12.5mg PO BID, Cozaar 25mg, Crestor 10mg Pulm: A: Acute Respiratory Failure - Intubated 07/22/17 - Daily CPAP weaning trials Endo: A: Hypothyroidism - Resumed Synthroid 50 mcg A: DM - Accuchecks - ISS - medium - A1C 8.4 GI: A: Cirrhosis, etiology unclear Dr. Irvin consulted Renal: A: ESRD previously on peritoneal dialysis Nephrology consulted - Dr. Benson - right shiley catheter placed - s/p HD 07/22 and 07/23 - Procrit Heme/Onc A: Anemia of Chronic Disease - Baseline hemoglobin 9s - Continue with Procrit - S/P transfused 1 unit PRBC 07/23x - Ferrlecit daily x 1 week - Stool occult- negative ID: A: Sepsis 2/2 Otitis Media with right mastoid effusion? Mastoiditis? r/o Meningitis ID consulted - Dr. Gabe Villegas - Workup up ordered - negative to date - Started on Merrem 500 Q12 (07/18) , Vanco 500mg on dialysis(07/19), and Acyclovir 400mg Q12 (07/22) - Pending EEG Prophylaxis - Pepcid 03/14 to steroids - Heparin during HD - Diet: NPO, OGT in place, tube feedings - PT/OT DW with Dr. Amy Ortega, Tameka Chin, PGY-1 <Amy Ortega - Last Filed: 07/26/17 14:25> CCU Objective - Vital Signs / Intake & Output Vital Signs (Last 4 hours): Vital Signs Pulse Pulse Resp BP BP Pulse Ox 07/26/17 13:19 74 18 146/56 L 94 L 07/26/17 13:00 73 22 98 07/26/17 12:19 76 18 162/61 H 95 07/26/17 12:00 74 22 99 07/26/17 11:19 74 21 167/68 H 95 07/26/17 11:00 74 24 98 07/26/17 10:55 74 150/67 07/26/17 10:51 80 14 164/67 H 99 07/26/17 10:44 79 17 150/67 94 L 07/26/17 10:30 74 164/69 H 07/26/17 10:29 73 20 164/69 H 99 Intake and Output (Last 8hrs): Intake & Output 07/25/17 07/26/17 07/26/17 22:59 06:59 14:59 Intake Total 520 520 560 Balance 520 520 560 Weight 168 lb 10.458 oz Intake: Intake, IV Amount 200 200 Left Antecubital side- 200 200 port Tube Feeding 320 320 280 Other 200 80 Other: # Bowel Movements 1 - Medications Active Medications: Active Medications Generic Name Dose Route Start Last Admin Trade Name Freq PRN Reason Stop Dose Admin Acetaminophen 650 mg 07/24/17 07:42 07/24/17 07:48 Tylenol 325mg Tab PO 650 mg Q6 PRN Administration Fever >100.4 F Albuterol/Ipratropium 3 ml 07/13/17 14:00 07/26/17 07:45 Duoneb 3 Mg/0.5 Mg (3 Ml) Ud INH 3 ml RQ6 JAYLA Administration Artificial Tears 0 ml 07/13/17 22:00 07/25/17 17:46 Artificial Tears OD 1 drop Q3H PRN Administration Dry eyes Aspirin 81 mg 07/15/17 10:00 07/26/17 11:15 Aspirin Chewable PO 81 mg DAILY JAYLA Administration Calcium Acetate 667 mg 07/13/17 12:00 07/26/17 11:15 Phoslo PO 667 mg TIDCC JAYLA Administration Carvedilol 6.25 mg 07/23/17 18:00 07/26/17 11:15 Coreg PO 6.25 mg BID JAYLA Administration Clopidogrel Bisulfate 75 mg 07/15/17 10:00 07/23/17 11:09 Plavix PO Not Given DAILY JAYLA Epoetin Kumar 10,000 unit 07/16/17 09:00 07/25/17 11:25 Procrit SC 10,000 unit MWF JAYLA Administration Famotidine 20 mg 07/25/17 12:15 07/26/17 11:15 Pepcid PO 20 mg DAILY JAYLA Administration Ferric Sodium Gluconate Complex 125 mg 07/26/17 10:00 07/26/17 10:22 Ferrlecit IVPB 08/03/17 10:01 125 mg DAILY JAYLA Administration Meropenem 500 mg/ Sodium 100 mls @ 100 mls/hr 07/18/17 23:30 07/26/17 11:14 Chloride IVPB 100 mls/hr Q12H JAYLA Administration Protocol Acyclovir 200 mg/ Sodium 100 mls @ 100 mls/hr 07/22/17 13:00 07/26/17 13:47 Chloride IV 100 mls/hr Q12H JAYLA Administration Protocol Vancomycin/Sodium Chloride 1 gm in 200 mls @ 166.7 mls/hr 07/28/17 09:00 Vancomycin 1 Gm/Ns 200 Ml IVPB 08/02/17 09:01 MWF JAYLA Protocol Vancomycin/Sodium Chloride 1 gm in 200 mls @ 133 mls/hr 07/26/17 13:00 13:48 Vancomycin 1 Gm/Ns 200 Ml IVPB 07/26/17 14:30 Not Given ONCE ONE Protocol Insulin Human Regular 0 unit 07/15/17 07:32 07/26/17 11:59 Novolin R SC 2 unit Q6 JAYLA Administration Protocol Levetiracetam 250 mg 07/24/17 18:30 07/26/17 11:15 Keppra PO 250 mg BID JAYLA Administration Levothyroxine Sodium 50 mcg 07/14/17 06:30 07/26/17 05:52 Synthroid PO 50 mcg DAILY@0630 JAYLA Administration Losartan Potassium 25 mg 07/25/17 15:00 07/25/17 15:25 Cozaar PO 25 mg DAILY JAYLA Administration Modafinil 50 mg 07/24/17 10:00 07/26/17 11:56 Provigil PO 50 mg DAILY JAYLA Administration Vitamin A 1 ea 07/19/17 18:00 07/26/17 11:16 Vitamin A & D Oint Ud Foilpak TOP 1 ea BID JAYLA Administration - Patient Studies Lab Studies: Microbiology Studies 07/24/17 08:11 Gram Stain - Final Sputum Induced Sputum Culture - Final NORMAL ORAL ADILSON 07/23/17 06:09 Blood Culture - Preliminary Blood-Thru Central Line NO GROWTH AFTER 3 DAYS Lab Studies 07/26/17 07/26/17 07/26/17 Range/Units 11:52 10:54 06:13 WBC (4.8-10.8) K/uL RBC (4.40-5.90) Mil/uL Hgb (12.0-18.0) g/dL Hct (35.0-51.0) % MCV (80.0-94.0) fL MCH (27.0-31.0) pg MCHC (33.0-37.0) g/dL RDW (11.5-14.5) % Plt Count (130-400) K/uL MPV (7.2-11.7) fL Neut % (Auto) (50.0-75.0) % Lymph % (Auto) (20.0-40.0) % Liberty % (Auto) (0.0-10.0) % Eos % (Auto) (0.0-4.0) % Baso % (Auto) (0.0-2.0) % Neut # (Auto) (1.8-7.0) K/uL Lymph # (Auto) (1.0-4.3) K/uL Liberty # (Auto) (0.0-0.8) K/uL Eos # (Auto) (0.0-0.7) K/uL Baso # (Auto) (0.0-0.2) K/uL Puncture Site pCO2 (35-45) mm/Hg pO2 (80-100) mm/Hg HCO3 (21-28) mmol/L ABG pH (7.35-7.45) ABG Total CO2 (22-28) mmol/L ABG O2 Saturation (95-98) % ABG Base Excess (-2.0-3.0) mmol/L ABG Hemoglobin (11.7-17.4) g/dL ABG Carboxyhemoglobin (0.5-1.5) % POC ABG HHb (Measured) (0.0-5.0) % ABG Methemoglobin (0.0-3.0) % Navin Test A-a O2 Difference mm/Hg Respiratory Index Hgb O2 Saturation (95.0-98.0) % Vent Mode Mechanical Rate FiO2 % Tidal Volume PEEP Sodium 137 (132-148) mmol/L Potassium 3.8 (3.6-5.2) mmol/L Chloride 101 (98-107) mmol/L Carbon Dioxide 27 (22-30) mmol/L Anion Gap 13 (10-20) BUN 39 H (9-20) mg/dL Creatinine 4.6 H (0.8-1.5) mg/dL Est GFR ( Amer) 15 Est GFR (Non-Af Amer) 12 POC Glucose (mg/dL) 175 H (65-110) mg/dL Random Glucose 224 H (75-110) mg/dL Calcium 8.4 L (8.6-10.4) mg/dl Phosphorus 3.0 (2.5-4.5) mg/dL Magnesium 2.2 (1.6-2.3) mg/dL Total Bilirubin 0.7 (0.2-1.3) mg/dL AST 50 (17-59) U/L ALT 51 (21-72) U/L Alkaline Phosphatase 168 H (38-126) U/L Total Protein 5.7 L (6.3-8.3) g/dL Albumin 2.6 L (3.5-5.0) g/dL Globulin 3.1 (2.2-3.9) gm/dL Albumin/Globulin Ratio 0.9 L (1.0-2.1) Random Vancomycin 21.0 ug/mL [place] Equ[place] Enceph IgG [place] Equine Enceph IgM E Equine Enceph Interp [place] Equine Enceph IgG [place] Equine Enceph IgM W Equine Enceph Interp [place] Encephalitis IgG [place] Encephalitis IgM [place] Encephal Interp 07/26/17 07/26/17 07/26/17 Range/Units 06:13 05:29 05:05 WBC 14.2 H (4.8-10.8) K/uL RBC 3.03 L (4.40-5.90) Mil/uL Hgb 9.7 L (12.0-18.0) g/dL Hct 29.1 L (35.0-51.0) % MCV 95.9 H D (80.0-94.0) fL MCH 31.9 H (27.0-31.0) pg MCHC 33.3 (33.0-37.0) g/dL RDW 16.6 H (11.5-14.5) % Plt Count 156 (130-400) K/uL MPV 9.4 (7.2-11.7) fL Neut % (Auto) 74.9 (50.0-75.0) % Lymph % (Auto) 11.0 L (20.0-40.0) % Liberty % (Auto) 10.1 H (0.0-10.0) % Eos % (Auto) 3.3 (0.0-4.0) % Baso % (Auto) 0.7 (0.0-2.0) % Neut # (Auto) 10.6 H (1.8-7.0) K/uL Lymph # (Auto) 1.6 (1.0-4.3) K/uL Liberty # (Auto) 1.4 H (0.0-0.8) K/uL Eos # (Auto) 0.5 (0.0-0.7) K/uL Baso # (Auto) 0.1 (0.0-0.2) K/uL Puncture Site Lr pCO2 42 (35-45) mm/Hg pO2 143 H (80-100) mm/Hg HCO3 28.0 (21-28) mmol/L ABG pH 7.44 (7.35-7.45) ABG Total CO2 29.8 H (22-28) mmol/L ABG O2 Saturation 98.3 H (95-98) % ABG Base Excess 3.9 H (-2.0-3.0) mmol/L ABG Hemoglobin 11.6 L (11.7-17.4) g/dL ABG Carboxyhemoglobin 1.1 (0.5-1.5) % POC ABG HHb (Measured) 1.7 (0.0-5.0) % ABG Methemoglobin 1.0 (0.0-3.0) % Navin Test Pos A-a O2 Difference 90.0 mm/Hg Respiratory Index 0.6 Hgb O2 Saturation 96.2 (95.0-98.0) % Vent Mode Prvc Mechanical Rate 14 FiO2 40.0 % Tidal Volume 450 PEEP 5 Sodium (132-148) mmol/L Potassium (3.6-5.2) mmol/L Chloride (98-107) mmol/L Carbon Dioxide (22-30) mmol/L Anion Gap (10-20) BUN (9-20) mg/dL Creatinine (0.8-1.5) mg/dL Est GFR ( Amer) Est GFR (Non-Af Amer) POC Glucose (mg/dL) 242 H (65-110) mg/dL Random Glucose (75-110) mg/dL Calcium (8.6-10.4) mg/dl Phosphorus (2.5-4.5) mg/dL Magnesium (1.6-2.3) mg/dL Total Bilirubin (0.2-1.3) mg/dL AST (17-59) U/L ALT (21-72) U/L Alkaline Phosphatase (38-126) U/L Total Protein (6.3-8.3) g/dL Albumin (3.5-5.0) g/dL Globulin (2.2-3.9) gm/dL Albumin/Globulin Ratio (1.0-2.1) Random Vancomycin ug/mL East Equine Enceph IgG East Equine Enceph IgM E Equine Enceph Interp West Equine Enceph IgG West Equine Enceph IgM W Equine Enceph Interp Calif Encephalitis IgG Calif Encephalitis IgM Calif Encephal Interp 07/25/17 07/25/17 07/20/17 Range/Units 23:44 18:06 06:38 WBC (4.8-10.8) K/uL RBC (4.40-5.90) Mil/uL Hgb (12.0-18.0) g/dL Hct (35.0-51.0) % MCV (80.0-94.0) fL MCH (27.0-31.0) pg MCHC (33.0-37.0) g/dL RDW (11.5-14.5) % Plt Count (130-400) K/uL MPV (7.2-11.7) fL Neut % (Auto) (50.0-75.0) % Lymph % (Auto) (20.0-40.0) % Liberty % (Auto) (0.0-10.0) % Eos % (Auto) (0.0-4.0) % Baso % (Auto) (0.0-2.0) % Neut # (Auto) (1.8-7.0) K/uL Lymph # (Auto) (1.0-4.3) K/uL Liberty # (Auto) (0.0-0.8) K/uL Eos # (Auto) (0.0-0.7) K/uL Baso # (Auto) (0.0-0.2) K/uL Puncture Site pCO2 (35-45) mm/Hg pO2 (80-100) mm/Hg HCO3 (21-28) mmol/L ABG pH (7.35-7.45) ABG Total CO2 (22-28) mmol/L ABG O2 Saturation (95-98) % ABG Base Excess (-2.0-3.0) mmol/L ABG Hemoglobin (11.7-17.4) g/dL ABG Carboxyhemoglobin (0.5-1.5) % POC ABG HHb (Measured) (0.0-5.0) % ABG Methemoglobin (0.0-3.0) % Navin Test A-a O2 Difference mm/Hg Respiratory Index Hgb O2 Saturation (95.0-98.0) % Vent Mode Mechanical Rate FiO2 % Tidal Volume PEEP Sodium (132-148) mmol/L Potassium (3.6-5.2) mmol/L Chloride (98-107) mmol/L Carbon Dioxide (22-30) mmol/L Anion Gap (10-20) BUN (9-20) mg/dL Creatinine (0.8-1.5) mg/dL Est GFR ( Amer) Est GFR (Non-Af Amer) POC Glucose (mg/dL) 183 H 227 H (65-110) mg/dL Random Glucose (75-110) mg/dL Calcium (8.6-10.4) mg/dl Phosphorus (2.5-4.5) mg/dL Magnesium (1.6-2.3) mg/dL Total Bilirubin (0.2-1.3) mg/dL AST (17-59) U/L ALT (21-72) U/L Alkaline Phosphatase (38-126) U/L Total Protein (6.3-8.3) g/dL Albumin (3.5-5.0) g/dL Globulin (2.2-3.9) gm/dL Albumin/Globulin Ratio (1.0-2.1) Random Vancomycin ug/mL East Equine Enceph IgG <1:16 East Equine Enceph IgM <1:16 E Equine Enceph Interp See note West Equine Enceph IgG <1:16 West Equine Enceph IgM <1:16 W Equine Enceph Interp See note Calif Encephalitis IgG <1:16 [place] Encephalitis IgM <1:16 Calif Encephal Interp See note Laboratory Results - last 24 hr 07/20/17 07/25/17 07/25/17 06:38 18:06 23:44 WBC RBC Hgb Hct MCV MCH MCHC RDW Plt Count MPV Neut % (Auto) Lymph % (Auto) Liberty % (Auto) Eos % (Auto) Baso % (Auto) Neut # (Auto) Lymph # (Auto) Liberty # (Auto) Eos # (Auto) Baso # (Auto) Puncture Site pCO2 pO2 HCO3 ABG pH ABG Total CO2 ABG O2 Saturation ABG Base Excess ABG Hemoglobin ABG Carboxyhemoglobin POC ABG HHb (Measured) ABG Methemoglobin Navin Test A-a O2 Difference Respiratory Index Hgb O2 Saturation Vent Mode Mechanical Rate FiO2 Tidal Volume PEEP Sodium Potassium Chloride Carbon Dioxide Anion Gap BUN Creatinine Est GFR ( Amer) Est GFR (Non-Af Amer) POC Glucose (mg/dL) 227 H 183 H Random Glucose Calcium Phosphorus Magnesium Total Bilirubin AST ALT Alkaline Phosphatase Total Protein Albumin Globulin Albumin/Globulin Ratio Random Vancomycin East Equine Enceph IgG <1:16 East Equine Enceph IgM <1:16 E Equine Enceph Interp See note West Equine Enceph IgG <1:16 West Equine Enceph IgM <1:16 W Equine Enceph Interp See note Calif Encephalitis IgG <1:16 [place] Encephalitis IgM <1:16 Calif Encephal Interp See note 07/26/17 07/26/17 07/26/17 05:05 05:29 06:13 WBC 14.2 H RBC 3.03 L Hgb 9.7 L Hct 29.1 L MCV 95.9 H D MCH 31.9 H MCHC 33.3 RDW 16.6 H Plt Count 156 MPV 9.4 Neut % (Auto) 74.9 Lymph % (Auto) 11.0 L Liberty % (Auto) 10.1 H Eos % (Auto) 3.3 Baso % (Auto) 0.7 Neut # (Auto) 10.6 H Lymph # (Auto) 1.6 Liberty # (Auto) 1.4 H Eos # (Auto) 0.5 Baso # (Auto) 0.1 Puncture Site Lr pCO2 42 pO2 143 H HCO3 28.0 ABG pH 7.44 ABG Total CO2 29.8 H ABG O2 Saturation 98.3 H ABG Base Excess 3.9 H ABG Hemoglobin 11.6 L ABG Carboxyhemoglobin 1.1 POC ABG HHb (Measured) 1.7 ABG Methemoglobin 1.0 Navin Test Pos A-a O2 Difference 90.0 Respiratory Index 0.6 Hgb O2 Saturation 96.2 Vent Mode Prvc Mechanical Rate 14 FiO2 40.0 Tidal Volume 450 PEEP 5 Sodium Potassium Chloride Carbon Dioxide Anion Gap BUN Creatinine Est GFR ( Amer) Est GFR (Non-Af Amer) POC Glucose (mg/dL) 242 H Random Glucose Calcium Phosphorus Magnesium Total Bilirubin AST ALT Alkaline Phosphatase Total Protein Albumin Globulin Albumin/Globulin Ratio Random Vancomycin East Equine Enceph IgG East Equine Enceph IgM E Equine Enceph Interp West Equine Enceph IgG West Equine Enceph IgM W Equine Enceph Interp [place] Encephalitis IgG [place] Encephalitis IgM [place] Encephal Interp 07/26/17 07/26/17 07/26/17 06:13 10:54 11:52 WBC RBC Hgb Hct MCV MCH MCHC RDW Plt Count MPV Neut % (Auto) Lymph % (Auto) Liberty % (Auto) Eos % (Auto) Baso % (Auto) Neut # (Auto) Lymph # (Auto) Liberty # (Auto) Eos # (Auto) Baso # (Auto) Puncture Site pCO2 pO2 HCO3 ABG pH ABG Total CO2 ABG O2 Saturation ABG Base Excess ABG Hemoglobin ABG Carboxyhemoglobin POC ABG HHb (Measured) ABG Methemoglobin Navin Test A-a O2 Difference Respiratory Index Hgb O2 Saturation Vent Mode Mechanical Rate FiO2 Tidal Volume PEEP Sodium 137 Potassium 3.8 Chloride 101 Carbon Dioxide 27 Anion Gap 13 BUN 39 H Creatinine 4.6 H Est GFR ( Amer) 15 Est GFR (Non-Af Amer) 12 POC Glucose (mg/dL) 175 H Random Glucose 224 H Calcium 8.4 L Phosphorus 3.0 Magnesium 2.2 Total Bilirubin 0.7 AST 50 ALT 51 Alkaline Phosphatase 168 H Total Protein 5.7 L Albumin 2.6 L Globulin 3.1 Albumin/Globulin Ratio 0.9 L Random Vancomycin 21.0 East Equine Enceph IgG East Equine Enceph IgM E Equine Enceph Interp West Equine Enceph IgG West Equine Enceph IgM W Equine Enceph Interp Calif Encephalitis IgG Calif Encephalitis IgM Calif Encephal Interp Critical Care Progress Note - Nutrition Nutrition: Nutrition Category Date Time Status NPO Diet [DIET] Diets 07/20/17 Dinner Active Assessment/Plan - Assessment and Plan (Free Text) Plan: Patient seen and examined at bedside. Patient awake on ventilator. Afebrile overnight, tolerating CPAP b/l air entry (+)S1 (+)S2 abd:soft, nt/nd ext: edema labs reveiwed A/P -AMS: improved continue current reigem -Hypoxic respiratory failuer:negative balance with HD, Fio2 requirement decreased -ESRD on HD: HD today -continue dvt/pud ppx -obtain weaning parameters, and extubate if RSBI <80 prognosis guarded - Date & Time Date: 07/26/17 Time: 14:25
--- NOTE | 2017-07-26 09:37 | CP.PCM.PN ---
Subjective - Date & Time of Evaluation Date of Evaluation: 07/26/17 Time of Evaluation: 09:34 - Subjective Subjective: Notes reviewed Care discussed with dialysis nurse at bedside, at bedside, and son over phone Seen in icu on dialysis Patient awakes to name, unable to respond to questions Falls asleep easily Remains intubated qb 350 via permacath No distress Tolerating tube feeding Objective - Vital Signs/Intake and Output Vital Signs (last 24 hours): Temp Pulse Resp BP Pulse Ox 98.4 F 74 14 144/63 100 07/26/17 08:33 07/26/17 09:15 07/26/17 08:33 07/26/17 09:15 07/26/17 08:00 Intake and Output: 07/26/17 07/26/17 06:59 18:59 Intake Total 680 80 Balance 680 80 - Medications Medications: Current Medications Acetaminophen (Tylenol 325mg Tab) 650 mg PO Q6 PRN PRN Reason: Fever >100.4 F Last Admin: 07/24/17 07:48 Dose: 650 mg Albuterol/Ipratropium (Duoneb 3 Mg/0.5 Mg (3 Ml) Ud) 3 ml INH RQ6 REPLACED BY [facility] Last Admin: 07/26/17 07:45 Dose: 3 ml Artificial Tears (Artificial Tears) 0 ml OD Q3H PRN PRN Reason: Dry eyes Last Admin: 07/25/17 17:46 Dose: 1 drop Aspirin (Aspirin Chewable) 81 mg PO DAILY [facility]PL[facility] BY [facility] Last Admin: 07/25/17 12:37 Dose: 81 mg Calcium Acetate (Phoslo) 667 mg PO TIDCC REPLACED BY [facility] Last Admin: 07/26/17 08:09 Dose: Not Given Carvedilol (Coreg) 6.25 mg PO BID REPLACED BY [facility] Last Admin: 07/25/17 17:45 Dose: 6.25 mg Clopidogrel Bisulfate (Plavix) 75 mg PO DAILY [facility]PLACED BY [facility] Last Admin: 07/23/17 11:09 Dose: Not Given Epoetin Kumar (Procrit) 10,000 unit SC MWF REPLACED BY [facility] Last Admin: 07/25/17 11:25 Dose: 10,000 unit Famotidine (Pepcid) 20 mg PO DAILY [facility]PL[facility] BY [facility] Last Admin: 07/25/17 12:37 Dose: 20 mg Ferric Sodium Gluconate Complex (Ferrlecit) 125 mg IVPB DAILY [facility] Stop: 08/03/17 10:01 Meropenem 500 mg/ Sodium (Chloride) 100 mls @ 100 mls/hr IVPB Q12H [facility] PRN Reason: Protocol Last Admin: 07/25/17 23:00 Dose: 100 mls/hr Acyclovir 200 mg/ Sodium (Chloride) 100 mls @ 100 mls/hr IV Q12H [facility] PRN Reason: Protocol Last Admin: 07/26/17 00:00 Dose: 100 mls/hr Vancomycin/Sodium Chloride (Vancomycin 1 Gm/Ns 200 Ml) 1 gm in 200 mls @ 166.7 mls/hr IVPB MWF [facility] PRN Reason: Protocol Stop: 08/02/17 09:01 Vancomycin/Sodium Chloride (Vancomycin 1 Gm/Ns 200 Ml) 1 gm in 200 mls @ 133 mls/hr IVPB ONCE ONE PRN Reason: Protocol Stop: 07/26/17 14:30 Insulin Human Regular (Novolin R) 0 unit SC Q6 [facility] PRN Reason: Protocol Last Admin: 07/26/17 06:14 Dose: 4 unit Levetiracetam (Keppra) 250 mg PO BID REPLACED BY [facility] Last Admin: 07/25/17 17:45 Dose: 250 mg Levothyroxine Sodium (Synthroid) 50 mcg PO DAILY@0630 [facility] Last Admin: 07/26/17 05:52 Dose: 50 mcg Losartan Potassium (Cozaar) 25 mg PO DAILY REPLACED BY [facility] Last Admin: 07/25/17 15:25 Dose: 25 mg Modafinil (Provigil) 50 mg PO DAILY REPLACED BY [facility] Last Admin: 07/25/17 12:37 Dose: 50 mg Vitamin A (Vitamin A & D Oint Ud Foilpak) 1 ea TOP BID REPLACED BY [facility] Last Admin: 07/25/17 17:46 Dose: 1 ea - Labs Labs: 07/26/17 06:13 07/26/17 06:13 PT 11.2 SECONDS (9.7-12.2) 07/22/17 20:01 INR 1.0 07/22/17 20:01 APTT 35 SECONDS (21-34) H 07/22/17 20:01 - Constitutional Appears: Non-toxic, Chronically Ill - Head Exam Head Exam: ATRAUMATIC, NORMAL INSPECTION - Eye Exam Eye Exam: EOMI, Normal appearance - ENT Exam ENT Exam: Mucous Membranes Moist, Normal Oropharynx Additional comments: et tube - Neck Exam Neck Exam: absent: Lymphadenopathy, Thyromegaly - Respiratory Exam Respiratory Exam: Rhonchi, NORMAL BREATHING PATTERN - Cardiovascular Exam Cardiovascular Exam: +S1, +S2. absent: JVD - GI/Abdominal Exam GI & Abdominal Exam: Soft, Normal Bowel Sounds - Extremities Exam Extremities Exam: Pedal Edema. absent: Joint Swelling - Neurological Exam Neurological Exam: absent: Alert, Oriented x3 - Skin Skin Exam: Dry, Intact Assessment and Plan (1) Dependence on hemodialysis Assessment & Plan: Tolerating HD well UF goal today 1500ml BP stable Abx as ordered Vent weaning per icu team Monitor mental status Discussed care with family Next hd 07/28 Status: Acute (2) Anemia Status: Acute (3) Respiratory failure Status: Acute (4) Acute metabolic encephalopathy Status: Acute (5) Yu palsy Status: Acute (6) ESRD (end stage renal disease) Status: Acute (7) Heart block AV complete Status: Acute
[2017-07-26] MEDS: Ferric Sodium Gluconat Complex 62.5 mg/5 ml Vial IVPB SCH (10:22)
[2017-07-26] MEDS: Vancomycin 1 gm/NS 200 ml 1 GM/200 ML BAG IVPB ONE ×2 (11:13→13:48)
[2017-07-26] MEDS: Meropenem 500 MG in Sodium Chloride 0.9% 100 ML IVPB SCH ×2 (11:14→23:57)
[2017-07-26] MEDS: Vitamins A & D Oint UD Foilpak TOP SCH ×2 (11:16→17:34)
[2017-07-26] MEDS: Modafinil 50 MG TAB PO SCH (11:56)
--- NOTE | 2017-07-26 12:24 | RAD ---
HISTORY: intubated COMPARISON: 07/25/2017 FINDINGS: LUNGS: Patchy opacity lateral right lung base. Possible developing pneumonia. Follow-up advised. PLEURA: No significant pleural effusion identified, no pneumothorax apparent. CARDIOVASCULAR: Normal heart size. ET tube and NG tube unchanged. Permanent pacemaker. Right subclavian multi lumen central venous catheter. OSSEOUS STRUCTURES: No significant abnormalities. VISUALIZED UPPER ABDOMEN: Normal. OTHER FINDINGS: None. IMPRESSION: Developing opacity lateral right lung base. Followup advised to exclude developing pneumonia. Otherwise no change.
[2017-07-26] MEDS: Aritificial Tears (15ml) OD PRN (17:34)
--- NOTE | 2017-07-26 21:53 | CP.PCM.PN ---
Subjective - Date & Time of Evaluation Date of Evaluation: 07/26/17 Time of Evaluation: 13:05 - Subjective Subjective: Patient seen and examined at bedside. Patient intubated Physical Examination - Physical Exam Head: Positive for: Atraumatic, Normocephalic Pupils: Positive for: PERRL Extroacular Muscles: Positive for: EOMI Conjunctiva: Positive for: Normal Mouth: Positive for: Dry, Other (INTUBATED) Pharnyx: Positive for: Uvular Deviation (right) Neck: Positive for: Normal Range of Motion, Other (shiley catheter in place ) Respiratory/Chest: Positive for: Clear to Auscultation, Good Air Exchange. Negative for: Respiratory Distress Cardiovascular: Positive for: Tachycardic Abdomen: Positive for: Normal Bowel Sounds, Other (peritoneal catheter in place , c/d/i ) Back: Positive for: Normal Inspection Upper Extremity: Positive for: Normal Inspection, NORMAL PULSES, Neurovascularly Intact, Capillary Refill < 2s. Negative for: Cyanosis, Edema, Tenderness, Swelling, Erythema Lower Extremity: Positive for: Normal Inspection, NORMAL PULSES. Negative for: Edema, CALF TENDERNESS, Tenderness, Swelling, Erythema Neurological: Positive for: Other (right facial droop ) Skin: Positive for: Warm, Dry, Normal Color. Negative for: Rashes Psychiatric: Positive for: Alert, Lethargic Objective - Vital Signs/Intake and Output Vital Signs (last 24 hours): Temp Pulse Resp BP Pulse Ox 98.6 F 80 18 154/61 H 96 07/26/17 16:00 07/26/17 20:19 07/26/17 20:19 07/26/17 20:19 07/26/17 20:19 Intake and Output: 07/26/17 07/27/17 18:59 06:59 Intake Total 860 80 Balance 860 80 - Medications Medications: Current Medications Acetaminophen (Tylenol 325mg Tab) 650 mg PO Q6 PRN PRN Reason: Fever >100.4 F Last Admin: 07/24/17 07:48 Dose: 650 mg Albuterol/Ipratropium (Duoneb 3 Mg/0.5 Mg (3 Ml) Ud) 3 ml INH RQ6 [facility] Last Admin: 07/26/17 19:40 Dose: 3 ml Artificial Tears (Artificial Tears) 0 ml OD Q3H PRN PRN Reason: Dry eyes Last Admin: 07/26/17 17:34 Dose: 1 drop Aspirin (Aspirin Chewable) 81 mg PO DAILY [facility] Last Admin: 07/26/17 11:15 Dose: 81 mg Calcium Acetate (Phoslo) 667 mg PO TIDCC [facility] Last Admin: 07/26/17 17:30 Dose: 667 mg Carvedilol (Coreg) 6.25 mg PO BID [facility] Last Admin: 07/26/17 17:30 Dose: 6.25 mg Clopidogrel Bisulfate (Plavix) 75 mg PO DAILY [facility] Last Admin: 07/23/17 11:09 Dose: Not Given Epoetin Kumar (Procrit) 10,000 unit SC [facility] Last Admin: 07/25/17 11:25 Dose: 10,000 unit Famotidine (Pepcid) 20 mg PO DAILY [facility] Last Admin: 07/26/17 11:15 Dose: 20 mg Ferric Sodium Gluconate Complex (Ferrlecit) 125 mg IVPB DAILY [facility] Stop: 08/03/17 10:01 Last Admin: 07/26/17 10:22 Dose: 125 mg Meropenem 500 mg/ Sodium (Chloride) 100 mls @ 100 mls/hr IVPB Q12H [facility] PRN Reason: Protocol Last Admin: 07/26/17 11:14 Dose: 100 mls/hr Acyclovir 200 mg/ Sodium (Chloride) 100 mls @ 100 mls/hr IV Q12H [facility] PRN Reason: Protocol Last Admin: 07/26/17 13:47 Dose: 100 mls/hr Vancomycin/Sodium Chloride (Vancomycin 1 Gm/Ns 200 Ml) 1 gm in 200 mls @ 166.7 mls/hr IVPB [facility] PRN Reason: Protocol Stop: 08/02/17 09:01 Insulin Human Regular (Novolin R) 0 unit SC Q6 [facility] PRN Reason: Protocol Last Admin: 07/26/17 18:02 Dose: 4 unit Levetiracetam (Keppra) 250 mg PO BID [facility] Last Admin: 07/26/17 17:30 Dose: 250 mg Levothyroxine Sodium (Synthroid) 50 mcg PO DAILY@0630 [facility] Last Admin: 07/26/17 05:52 Dose: 50 mcg Losartan Potassium (Cozaar) 25 mg PO DAILY [facility] Last Admin: 07/26/17 19:16 Dose: Not Given Modafinil (Provigil) 50 mg PO DAILY [facility] Last Admin: 07/26/17 11:56 Dose: 50 mg Vitamin A (Vitamin A & D Oint Ud Foilpak) 1 ea TOP BID [facility] Last Admin: 07/26/17 17:34 Dose: 1 ea - Labs Labs: 07/26/17 06:13 07/26/17 06:13 PT 11.2 SECONDS (9.7-12.2) 07/22/17 20:01 INR 1.0 07/22/17 20:01 APTT 35 SECONDS (21-34) H 07/22/17 20:01 Assessment and Plan - Assessment and Plan (Free Text) Assessment: This is a 76 year old male with HTN, DM, Hypercholesterimia, CAD, CABG with 5 vessel disease, ESRD on peritoneal dialysis, with symptomatic bradycardia s/p pacemaker placed [address] Valencia, hypothyroidism, who presented to the ED on 07/28 for dysphagia and slurred speech, was diagnosed with Yu's Palsy. Patient is with persistent AMS 2/2 Metabolic Encephalopathy. HD x 2 session on , 07/23, s/p catheter placement 07/22/17. Plan: Neuro: Intubated 2/2 Respiratory Failure PRVC 14/40/450/5 A: Metabolic Encephalopathy Neurology consulted - Dr. 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 - Started Keppra 250mg PO BID A: Right Yu's Palsy Neurology: Dr. Thompson - on board Imaging: - Head CT: 1. Confluent area of low attenuation within the right frontal subcortical white matter suggestive for chronic ischemic change. 2. Scattered areas of chronic microvascular ischemic change. 3. Prominent ventricles. 4. No evidence of acute intracranial hemorrhage. If there is persistent concern for acute ischemic change, correlation with MRI is recommended. - Head/ Neck CTA: There is nonvisualization origin left vertebral artery. Left vertebral artery reconstitutes at approximately the lower C5 level and is seen on as a patent vessel to the level of the C2 segment where the vertebral artery is no longer visualized and appears to be occluded. Findings could represent sequela of atherosclerotic disease or dissection. Clinical correlation recommended. Right vertebral artery is patent throughout. The common carotid arteries, carotid bifurcations and internal carotid artery is widely patent. There is a calcified atherosclerotic plaque both cavernous carotid segments. The the at anterior middle and posterior cerebral arteries are patent. No evidence of large aneurysm nor vascular malformation. - Not able to have MRI - due to recent PPM placement - 07/[address]: No intracranial mass, hemorrhage or evidence of acute infarct. Right frontal encephalomalacia, possibly old MCA territory infarct. Small nonspecific right mastoid effusion. Chronic white matter ischemic change. A: Hx CVA -ASA 81mg, Plavix 75mg (held), Crestor 10mg Cardio: A: HTN, CAD, CABG with 5 vessel disease, with symptomatic bradycardia s/p pacemaker placed [address] Valencia - Recent ECHO performed in Dr. Elizabeth's office as outpatient - ASA 81mg, Plavix 75mg, Coreg 12.5mg PO BID, Cozaar 25mg, Crestor 10mg Pulm: A: Acute Respiratory Failure - Intubated 07/22/17 - Daily CPAP weaning trials Endo: A: Hypothyroidism - Resumed Synthroid 50 mcg A: DM - Accuchecks - ISS - medium - A1C 8.4 GI: A: Cirrhosis, etiology unclear Dr. Irvin consulted Renal: A: ESRD previously on peritoneal dialysis Nephrology consulted - Dr. Benson - right shiley catheter placed - s/p HD 07/22 and 07/23 - Procrit Heme/Onc A: Anemia of Chronic Disease - Baseline hemoglobin 9s - Continue with Procrit - S/P transfused 1 unit PRBC 07/23x - Ferrlecit daily x 1 week - Stool occult- negative ID: A: Sepsis 2/2 Otitis Media with right mastoid effusion? Mastoiditis? r/o Meningitis ID consulted - Dr. Gabe Villegas - Workup up ordered - negative to date - Started on Merrem 500 Q12 (07/18) , Vanco 500mg on dialysis(07/19), and Acyclovir 400mg Q12 (07/22) - Pending EEG Prophylaxis - Pepcid 2/2 to steroids - Heparin during HD - Diet: NPO, OGT in place, tube feedings - PT/OT
[2017-07-27] MEDS: Albuterol-Ipratrop 3 mg / 0.5 (3 ml) UD INH SCH ×4 (03:14→19:44)
[2017-07-27] MEDS: (Novolin R) Insulin Human Regular 100 units/ml vial SC SCH ×3 (05:35→18:09)
[2017-07-27] MEDS: Levothyroxine 50 MCG TAB PO SCH (05:35)
[2017-07-27 06:04] LABS: ARTERIAL BLOOD GAS HCO3 28.5 mmol/L (21-28); ARTERIAL BLOOD GAS O2 SAT 98.3 % (95-98); ARTERIAL BLOOD GAS PCO2 39 mm/Hg (35-45); ARTERIAL BLOOD GAS PH 7.47 (7.35-7.45); ARTERIAL BLOOD GAS PO2 122 mm/Hg (80-100); ARTERIAL BLOOD GAS TCO2 29.6 mmol/L (22-28)
[2017-07-27 06:21] LABS: BASO # 0.1 K/uL (0.0-0.2); BASO % 0.7 % (0.0-2.0); EOS # 0.4 K/uL (0.0-0.7); EOS % 2.7 % (0.0-4.0); LYMPH # 1.3 K/uL (1.0-4.3); LYMPH % 10.5 % (20.0-40.0); MEAN CELL VOLUME 94.8 fL (80.0-94.0); MEAN CORPUSCULAR HEMOGLOBIN 31.6 pg (27.0-31.0); MEAN CORPUSCULAR HGB CONC 33.3 g/dL (33.0-37.0); MEAN PLATELET VOLUME 9.2 fL (7.2-11.7); MONO # 1.1 K/uL (0.0-0.8); MONO % 8.8 % (0.0-10.0); NEUT # 9.9 K/uL (1.8-7.0); NEUT % 77.3 % (50.0-75.0); NRBC % 0.5 % (0.0-2.0); RBC 2.84 Mil/uL (4.40-5.90); RED CELL DISTRIBUTION WIDTH 16.6 % (11.5-14.5); WHITE BLOOD COUNT 12.8 K/uL (4.8-10.8)
[2017-07-27 06:47] LABS: ALB/GLOB RATIO 0.8 (1.0-2.1); ALBUMIN 2.4 g/dL (3.5-5.0); CALCIUM 8.4 mg/dl (8.6-10.4)
--- NOTE | 2017-07-27 07:46 | CP.PCM.PN ---
Subjective - Date & Time of Evaluation Date of Evaluation: 07/27/17 Time of Evaluation: 07:46 - Subjective Subjective: patient tolerated the CPAP todayExtubated today Doing well We'll continue to monitor Hemodialysis Objective - Vital Signs/Intake and Output Vital Signs (last 24 hours): Temp Pulse Resp BP Pulse Ox 99.1 F 85 21 153/50 H 99 07/27/17 04:00 07/27/17 07:00 07/27/17 07:00 07/27/17 06:19 07/27/17 07:00 Intake and Output: 07/27/17 07/27/17 06:59 18:59 Intake Total 680 40 Balance 680 40 - Medications Medications: Current Medications Acetaminophen (Tylenol 325mg Tab) 650 mg PO Q6 PRN PRN Reason: Fever >100.4 F Last Admin: 07/24/17 07:48 Dose: 650 mg Albuterol/Ipratropium (Duoneb 3 Mg/0.5 Mg (3 Ml) Ud) 3 ml INH RQ6 [facility] Last Admin: 07/27/17 07:42 Dose: 3 ml Artificial Tears (Artificial Tears) 0 ml OD Q3H PRN PRN Reason: Dry eyes Last Admin: 07/26/17 17:34 Dose: 1 drop Aspirin (Aspirin Chewable) 81 mg PO DAILY [facility] Last Admin: 07/26/17 11:15 Dose: 81 mg Calcium Acetate (Phoslo) 667 mg PO TIDCC [facility] Last Admin: 07/26/17 17:30 Dose: 667 mg Carvedilol (Coreg) 6.25 mg PO BID [facility] Last Admin: 07/26/17 17:30 Dose: 6.25 mg Clopidogrel Bisulfate (Plavix) 75 mg PO DAILY [facility] Last Admin: 07/23/17 11:09 Dose: Not Given Epoetin Kumar (Procrit) 10,000 unit SC MWF [facility] Last Admin: 07/25/17 11:25 Dose: 10,000 unit Famotidine (Pepcid) 20 mg PO DAILY [facility] Last Admin: 07/26/17 11:15 Dose: 20 mg Ferric Sodium Gluconate Complex (Ferrlecit) 125 mg IVPB DAILY [facility] Stop: 08/03/17 10:01 Last Admin: 07/26/17 10:22 Dose: 125 mg Meropenem 500 mg/ Sodium (Chloride) 100 mls @ 100 mls/hr IVPB Q12H [facility] PRN Reason: Protocol Last Admin: 07/26/17 23:57 Dose: 100 mls/hr Acyclovir 200 mg/ Sodium (Chloride) 100 mls @ 100 mls/hr IV Q12H [facility] PRN Reason: Protocol Last Admin: 07/27/17 01:33 Dose: 100 mls/hr Vancomycin/Sodium Chloride (Vancomycin 1 Gm/Ns 200 Ml) 1 gm in 200 mls @ 166.7 mls/hr IVPB MWF [facility] PRN Reason: Protocol Stop: 08/02/17 09:01 Insulin Human Regular (Novolin R) 0 unit SC Q6 [facility] PRN Reason: Protocol Last Admin: 07/27/17 05:35 Dose: 2 unit Levetiracetam (Keppra) 250 mg PO BID [facility] Last Admin: 07/26/17 17:30 Dose: 250 mg Levothyroxine Sodium (Synthroid) 50 mcg PO DAILY@0630 [facility] Last Admin: 07/27/17 05:35 Dose: 50 mcg Losartan Potassium (Cozaar) 25 mg PO DAILY [facility] Last Admin: 07/26/17 19:16 Dose: Not Given Modafinil (Provigil) 50 mg PO DAILY [facility] Last Admin: 07/26/17 11:56 Dose: 50 mg Vitamin A (Vitamin A & D Oint Ud Foilpak) 1 ea TOP BID [facility] Last Admin: 07/26/17 17:34 Dose: 1 ea - Labs Labs: 07/27/17 06:15 07/27/17 06:15 PT 11.2 SECONDS (9.7-12.2) 07/22/17 20:01 INR 1.0 07/22/17 20:01 APTT 35 SECONDS (21-34) H 07/22/17 20:01
[2017-07-27] MEDS: Ferric Sodium Gluconat Complex 62.5 mg/5 ml Vial IVPB SCH (09:03)
[2017-07-27] MEDS: Modafinil 50 MG TAB PO SCH (09:07)
[2017-07-27] MEDS: Vitamins A & D Oint UD Foilpak TOP SCH ×2 (09:16→18:25)
--- NOTE | 2017-07-27 09:41 | RAD ---
HISTORY: Intubated. COMPARISON: Multiple serial examinations preceding the most recent study: July 26, 2017. FINDINGS: LUNGS: Stable findings at the lung bases. PLEURA: No significant pleural effusion identified, no pneumothorax apparent. CARDIOVASCULAR: No radiographic findings to suggest acute or significant cardiovascular disease. OSSEOUS STRUCTURES: No significant abnormalities. VISUALIZED UPPER ABDOMEN: Normal. OTHER FINDINGS: Stable, satisfactory position ventilatory, vascular and nasogastric apparatus. IMPRESSION: No significant interval change compared to the prior examination(s).
[2017-07-27] MEDS: Meropenem 500 MG in Sodium Chloride 0.9% 100 ML IVPB SCH ×2 (11:07→23:30)
--- NOTE | 2017-07-27 22:30 | CP.PCM.PN ---
Subjective - Date & Time of Evaluation Date of Evaluation: 07/27/17 Time of Evaluation: 22:30 - Subjective Subjective: afebrile, More responsive, contact with eyes Weaning in progress. labs reviewed. WBC is improving 12.5 On IV antibiotics/antivirals Patient being planned for extubation. Family at bedside. Objective - Vital Signs/Intake and Output Vital Signs (last 24 hours): Temp Pulse Resp BP Pulse Ox 98.8 F 81 26 H 149/57 L 100 07/27/17 16:00 07/27/17 22:22 07/27/17 22:22 07/27/17 22:22 07/27/17 22:22 Intake and Output: 07/27/17 07/28/17 18:59 06:59 Intake Total 560 40 Balance 560 40 - Medications Medications: Current Medications Acetaminophen (Tylenol 325mg Tab) 650 mg PO Q6 PRN PRN Reason: Fever >100.4 F Last Admin: 07/24/17 07:48 Dose: 650 mg Albuterol/Ipratropium (Duoneb 3 Mg/0.5 Mg (3 Ml) Ud) 3 ml INH RQ6 [facility] Last Admin: 07/27/17 19:44 Dose: 3 ml Artificial Tears (Artificial Tears) 0 ml OD Q3H PRN PRN Reason: Dry eyes Last Admin: 07/26/17 17:34 Dose: 1 drop Aspirin (Aspirin Chewable) 81 mg PO DAILY [facility] Last Admin: 07/27/17 09:07 Dose: 81 mg Calcium Acetate (Phoslo) 667 mg PO TIDCC [facility] Last Admin: 07/27/17 17:17 Dose: 667 mg Carvedilol (Coreg) 6.25 mg PO BID [facility] Last Admin: 07/27/17 17:22 Dose: 6.25 mg Clopidogrel Bisulfate (Plavix) 75 mg PO DAILY [facility] Last Admin: 07/27/17 09:07 Dose: 75 mg Epoetin Kumar (Procrit) 10,000 unit SC MWF [facility] Last Admin: 07/25/17 11:25 Dose: 10,000 unit Famotidine (Pepcid) 20 mg PO DAILY [facility] Last Admin: 07/27/17 09:07 Dose: 20 mg Ferric Sodium Gluconate Complex (Ferrlecit) 125 mg IVPB DAILY [facility] Stop: 08/03/17 10:01 Last Admin: 07/27/17 09:03 Dose: 125 mg Meropenem 500 mg/ Sodium (Chloride) 100 mls @ 100 mls/hr IVPB Q12H [facility] PRN Reason: Protocol Last Admin: 07/27/17 11:07 Dose: 100 mls/hr Acyclovir 200 mg/ Sodium (Chloride) 100 mls @ 100 mls/hr IV Q12H [facility] PRN Reason: Protocol Last Admin: 07/27/17 12:08 Dose: 100 mls/hr Vancomycin/Sodium Chloride (Vancomycin 1 Gm/Ns 200 Ml) 1 gm in 200 mls @ 166.7 mls/hr IVPB MWF [facility] PRN Reason: Protocol Stop: 08/02/17 09:01 Insulin Human Regular (Novolin R) 0 unit SC Q6 [facility] PRN Reason: Protocol Last Admin: 07/27/17 18:09 Dose: 2 unit Levetiracetam (Keppra) 250 mg PO BID [facility] Last Admin: 07/27/17 17:22 Dose: 250 mg Levothyroxine Sodium (Synthroid) 50 mcg PO DAILY@0630 [facility] Last Admin: 07/27/17 05:35 Dose: 50 mcg Losartan Potassium (Cozaar) 25 mg PO DAILY [facility] Last Admin: 07/27/17 09:07 Dose: 25 mg Modafinil (Provigil) 50 mg PO DAILY [facility] Last Admin: 07/27/17 09:07 Dose: 50 mg Vitamin A (Vitamin A & D Oint Ud Foilpak) 1 ea TOP BID [facility] Last Admin: 07/27/17 18:25 Dose: 1 ea - Labs Labs: 07/27/17 06:15 07/27/17 06:15 PT 11.2 SECONDS (9.7-12.2) 07/22/17 20:01 INR 1.0 07/22/17 20:01 APTT 35 SECONDS (21-34) H 07/22/17 20:01 - Constitutional Appears: No Acute Distress - Head Exam Head Exam: NORMAL INSPECTION - Eye Exam Eye Exam: PERRL - ENT Exam ENT Exam: Mucous Membranes Moist - Neck Exam Neck Exam: Normal Inspection - Respiratory Exam Respiratory Exam: Decreased Breath Sounds, NORMAL BREATHING PATTERN - Cardiovascular Exam Cardiovascular Exam: REGULAR RHYTHM, +S1 - GI/Abdominal Exam GI & Abdominal Exam: Soft, Normal Bowel Sounds - Extremities Exam Extremities Exam: Pedal Edema. absent: Calf Tenderness - Neurological Exam Neurological Exam: Awake, CN II-XII Intact - Psychiatric Exam Psychiatric exam: Flat Affect - Skin Skin Exam: Warm Assessment and Plan (1) Toxic metabolic encephalopathy Assessment & Plan: IMPROVING CONTINUE IV VANCOMYCIN 1 G POST-EACH HEMODIALYSIS MWF CONTINUE MERREM 500 MG EVERY 12 HOURLY. CONTINUE iv ACYCLOVIR 200 MG iv EVERY 12 HOURLY Status: Acute (2) Yu palsy Assessment & Plan: REPEAT ct OF THE HEAD-NO ACUTE CHANGES Status: Acute (3) Type 2 diabetes mellitus with diabetic nephropathy Status: Acute (4) ESRD (end stage renal disease) Assessment & Plan: PRESENTLY ON HEMODIALYSIS MWF /PRN NEEDED Status: Acute (5) Heart block AV complete Assessment & Plan: S/P PERMANENT PACEMAKER 3 WEEKS AGO Status: Acute
[2017-07-28] MEDS: (Novolin R) Insulin Human Regular 100 units/ml vial SC SCH ×4 (00:46→18:40)
[2017-07-28] MEDS: Albuterol-Ipratrop 3 mg / 0.5 (3 ml) UD INH SCH ×4 (01:08→20:29)
[2017-07-28] MEDS: Levothyroxine 50 MCG TAB PO SCH (05:41)
[2017-07-28 05:45] LABS: BASO # 0.1 K/uL (0.0-0.2); BASO % 0.5 % (0.0-2.0); EOS # 0.4 K/uL (0.0-0.7); EOS % 2.8 % (0.0-4.0); HEMOGLOBIN 9.7 g/dL (12.0-18.0); LYMPH # 0.9 K/uL (1.0-4.3); LYMPH % 6.8 % (20.0-40.0); MEAN CELL VOLUME 95.3 fL (80.0-94.0); MEAN CORPUSCULAR HEMOGLOBIN 31.7 pg (27.0-31.0); MEAN CORPUSCULAR HGB CONC 33.3 g/dL (33.0-37.0); MEAN PLATELET VOLUME 8.9 fL (7.2-11.7); MONO # 1.1 K/uL (0.0-0.8); MONO % 7.8 % (0.0-10.0); NEUT # 11.4 K/uL (1.8-7.0); NEUT % 82.1 % (50.0-75.0); NRBC % 0.2 % (0.0-2.0); PLATELET COUNT 152 K/uL (130-400); RBC 3.06 Mil/uL (4.40-5.90); WHITE BLOOD COUNT 13.8 K/uL (4.8-10.8)
[2017-07-28 06:17] LABS: ALB/GLOB RATIO 0.8 (1.0-2.1); ALBUMIN 2.7 g/dL (3.5-5.0)
[2017-07-28 08:25] LABS: ANISOCYTOSIS SLIGHT; BANDS 1 % (0-2); EOSINOPHIL 1 % (0-4); HYPOCHROMIC SLIGHT; LYMPHOCYTE 9 % (20-40); MONOCYTE 7 % (0-10); NEUTROPHIL 82 % (50-75); PLATELET ESTIMATE NORMAL (NORMAL); POIKILOCYTOSIS SLIGHT; TOTAL CELLS COUNTED 100
[2017-07-28] MEDS: Modafinil 50 MG TAB PO SCH (09:47)
--- NOTE | 2017-07-28 09:51 | CP.PCM.PN ---
Subjective - Date & Time of Evaluation Date of Evaluation: 07/28/17 Time of Evaluation: 09:49 - Subjective Subjective: Extubated previously More alert; has been talking to HTN controlled Dialysis course stable- last done 07/26 CXR same has been afebrile not verbalizing much now overall better Objective - Vital Signs/Intake and Output Vital Signs (last 24 hours): Temp Pulse Resp BP Pulse Ox 98.3 F 90 21 147/55 L 100 07/28/17 04:00 07/28/17 07:00 07/28/17 07:00 07/28/17 06:44 07/28/17 07:00 Intake and Output: 07/28/17 07/28/17 06:59 18:59 Intake Total 480 Balance 480 - Medications Medications: Current Medications Acetaminophen (Tylenol 325mg Tab) 650 mg PO Q6 PRN PRN Reason: Fever >100.4 F Last Admin: 07/24/17 07:48 Dose: 650 mg Albuterol/Ipratropium (Duoneb 3 Mg/0.5 Mg (3 Ml) Ud) 3 ml INH RQ6 [facility] Last Admin: 07/28/17 08:05 Dose: 3 ml Artificial Tears (Artificial Tears) 0 ml OD Q3H PRN PRN Reason: Dry eyes Last Admin: 07/26/17 17:34 Dose: 1 drop Aspirin (Aspirin Chewable) 81 mg PO DAILY [facility] Last Admin: 07/27/17 09:07 Dose: 81 mg Calcium Acetate (Phoslo) 667 mg PO TIDCC [facility] Last Admin: 07/28/17 09:00 Dose: 667 mg Carvedilol (Coreg) 6.25 mg PO BID [facility] Last Admin: 07/27/17 17:22 Dose: 6.25 mg Clopidogrel Bisulfate (Plavix) 75 mg PO DAILY [facility] Last Admin: 07/27/17 09:07 Dose: 75 mg Epoetin Kumar (Procrit) 10,000 unit SC MWF [facility] Last Admin: 07/25/17 11:25 Dose: 10,000 unit Famotidine (Pepcid) 20 mg PO DAILY [facility] Last Admin: 07/27/17 09:07 Dose: 20 mg Ferric Sodium Gluconate Complex (Ferrlecit) 125 mg IVPB DAILY [facility] Stop: 08/03/17 10:01 Last Admin: 07/27/17 09:03 Dose: 125 mg Meropenem 500 mg/ Sodium (Chloride) 100 mls @ 100 mls/hr IVPB Q12H [facility] PRN Reason: Protocol Last Admin: 07/27/17 23:30 Dose: 100 mls/hr Acyclovir 200 mg/ Sodium (Chloride) 100 mls @ 100 mls/hr IV Q12H [facility] PRN Reason: Protocol Last Admin: 07/28/17 00:45 Dose: 100 mls/hr Vancomycin/Sodium Chloride (Vancomycin 1 Gm/Ns 200 Ml) 1 gm in 200 mls @ 166.7 mls/hr IVPB MWF [facility] PRN Reason: Protocol Stop: 08/02/17 09:01 Insulin Human Regular (Novolin R) 0 unit SC Q6 [facility] PRN Reason: Protocol Last Admin: 07/28/17 05:41 Dose: 2 unit Levetiracetam (Keppra) 250 mg PO BID [facility] Last Admin: 07/27/17 17:22 Dose: 250 mg Levothyroxine Sodium (Synthroid) 50 mcg PO DAILY@0630 [facility] Last Admin: 07/28/17 05:41 Dose: 50 mcg Losartan Potassium (Cozaar) 25 mg PO DAILY [facility] Last Admin: 07/27/17 09:07 Dose: 25 mg Modafinil (Provigil) 50 mg PO DAILY [facility] Last Admin: 07/27/17 09:07 Dose: 50 mg Vitamin A (Vitamin A & D Oint Ud Foilpak) 1 ea TOP BID [facility] Last Admin: 07/27/17 18:25 Dose: 1 ea - Labs Labs: 07/28/17 05:37 07/28/17 05:38 PT 11.2 SECONDS (9.7-12.2) 07/22/17 20:01 INR 1.0 07/22/17 20:01 APTT 35 SECONDS (21-34) H 07/22/17 20:01 - Constitutional Appears: No Acute Distress, Chronically Ill - Head Exam Head Exam: ATRAUMATIC, NORMAL INSPECTION - Eye Exam Eye Exam: EOMI, Normal appearance - Neck Exam Neck Exam: Normal Inspection. absent: Tenderness - Respiratory Exam Respiratory Exam: Clear to Ausculation Bilateral, NORMAL BREATHING PATTERN - Cardiovascular Exam Cardiovascular Exam: REGULAR RHYTHM, +S1 - GI/Abdominal Exam GI & Abdominal Exam: Soft. absent: Tenderness - Extremities Exam Extremities Exam: Normal Inspection. absent: Tenderness - Neurological Exam Neurological Exam: Altered, Awake - Skin Skin Exam: Dry, Warm Assessment and Plan (1) TIA (transient ischemic attack) Status: Acute (2) ESRD (end stage renal disease) Status: Acute (3) Heart block AV complete Status: Acute (4) Type 2 diabetes mellitus with diabetic nephropathy Status: Acute - Assessment and Plan (Free Text) Plan: Dialysis now and MWF IV ABs as per ICU Will need AV access- maybe in few days if pt continues to improve; remove PD cath at same time continue to monitor lytes, Hg
[2017-07-28] MEDS: Vitamins A & D Oint UD Foilpak TOP SCH ×2 (10:50→18:41)
--- NOTE | 2017-07-28 11:17 | RAD ---
HISTORY: Postextubation evaluation COMPARISON: Pre extubation study 07/27/2017 FINDINGS: LUNGS: Crowding of bronchovascular markings related to poor inspiratory effort and portable technique. PLEURA: No significant interval change compared to the prior examination(s). CARDIOVASCULAR: Cardiomegaly, median sternotomy. Position/ configuration of pacemaker OSSEOUS STRUCTURES: No significant abnormalities. VISUALIZED UPPER ABDOMEN: Normal. OTHER FINDINGS: None. IMPRESSION: Status post extubation and removal of nasogastric tube. Otherwise no significant interval changes accounting for differences in technique.
[2017-07-28] MEDS: Meropenem 500 MG in Sodium Chloride 0.9% 100 ML IVPB SCH (11:48)
[2017-07-28] MEDS: Ferric Sodium Gluconat Complex 62.5 mg/5 ml Vial IVPB SCH (11:53)
--- NOTE | 2017-07-28 12:25 | CP.CCUPN ---
<Tameka Chin - Last Filed: 07/28/17 12:22> CCU Subjective - Physician Review Subjective (Free Text): Patient seen and examined at bedside. Patient is more responsive, alert. NGT was discontinued. Pending EVAL. CCU Objective - Vital Signs / Intake & Output Vital Signs (Last 4 hours): Vital Signs Pulse Resp BP Pulse Ox 07/28/17 10:18 85 29 H 141/57 L 98 07/28/17 10:04 85 27 H 137/53 L 99 07/28/17 10:00 85 29 H 99 07/28/17 09:49 86 26 H 140/55 L 99 07/28/17 09:34 86 26 H 158/56 H 100 07/28/17 09:00 88 27 H 100 07/28/17 08:44 88 24 147/59 L 100 Intake and Output (Last 8hrs): Intake & Output 07/27/17 07/28/17 07/28/17 22:59 06:59 14:59 Intake Total 200 320 0 Output Total 0 Balance 200 320 0 Weight 170 lb 3.2 oz Intake: Tube Feeding 200 320 0 Output: Urine 0 Urine, Voided 0 - Physical Exam Head: Positive for: Atraumatic, Normocephalic Pupils: Positive for: PERRL Extroacular Muscles: Positive for: EOMI Conjunctiva: Positive for: Normal Mouth: Positive for: Dry, Other (INTUBATED) Pharnyx: Positive for: Uvular Deviation (right) Neck: Positive for: Normal Range of Motion, Other (shiley catheter in place ) Respiratory/Chest: Positive for: Clear to Auscultation, Good Air Exchange. Negative for: Respiratory Distress Cardiovascular: Positive for: Tachycardic Abdomen: Positive for: Normal Bowel Sounds, Other (peritoneal catheter in place , c/d/i ) Back: Positive for: Normal Inspection Upper Extremity: Positive for: Normal Inspection, NORMAL PULSES, Neurovascularly Intact, Capillary Refill < 2s. Negative for: Cyanosis, Edema, Tenderness, Swelling, Erythema Lower Extremity: Positive for: Normal Inspection, NORMAL PULSES. Negative for: Edema, CALF TENDERNESS, Tenderness, Swelling, Erythema Neurological: Positive for: Other (right facial droop ) Skin: Positive for: Warm, Dry, Normal Color. Negative for: Rashes Psychiatric: Positive for: Alert, Lethargic - Medications Active Medications: Active Medications Generic Name Dose Route Start Last Admin Trade Name Freq PRN Reason Stop Dose Admin Acetaminophen 650 mg 07/24/17 07:42 07/24/17 07:48 Tylenol 325mg Tab PO 650 mg Q6 PRN Administration Fever >100.4 F Albuterol/Ipratropium 3 ml 07/13/17 14:00 07/28/17 08:05 Duoneb 3 Mg/0.5 Mg (3 Ml) Ud INH 3 ml RQ6 [facility] Administration Artificial Tears 0 ml 07/13/17 22:00 07/26/17 17:34 Artificial Tears OD 1 drop Q3H PRN Administration Dry eyes Aspirin 81 mg 07/15/17 10:00 07/27/17 09:07 Aspirin Chewable PO 81 mg DAILY [facility] Administration Calcium Acetate 667 mg 07/13/17 12:00 07/28/17 09:00 Phoslo PO 667 mg TIDCC [facility] Administration Carvedilol 6.25 mg 07/23/17 18:00 07/27/17 17:22 Coreg PO 6.25 mg BID [facility] Administration Clopidogrel Bisulfate 75 mg 07/15/17 10:00 07/27/17 09:07 Plavix PO 75 mg DAILY [facility] Administration Epoetin Kumar 10,000 unit 07/16/17 09:00 07/25/17 11:25 Procrit SC 10,000 unit [facility] Administration Famotidine 20 mg 07/25/17 12:15 07/27/17 09:07 Pepcid PO 20 mg DAILY [facility] Administration Ferric Sodium Gluconate Complex 125 mg 07/26/17 10:00 07/28/17 11:53 Ferrlecit IVPB 08/03/17 10:01 125 mg DAILY [facility] Administration Meropenem 500 mg/ Sodium 100 mls @ 100 mls/hr 07/18/17 23:30 07/27/17 23:30 Chloride IVPB 100 mls/hr Q12H [facility] Administration Protocol Acyclovir 200 mg/ Sodium 100 mls @ 100 mls/hr 07/22/17 13:00 07/28/17 00:45 Chloride IV 100 mls/hr Q12H [facility] Administration Protocol Vancomycin/Sodium Chloride 1 gm in 200 mls @ 166.7 mls/hr 07/28/17 09:00 Vancomycin 1 Gm/Ns 200 Ml IVPB 08/02/17 09:01 MWF [facility] Protocol Insulin Human Regular 0 unit 07/15/17 07:32 07/28/17 05:41 Novolin R SC 2 unit Q6 [facility] Administration Protocol Levetiracetam 250 mg 07/24/17 18:30 07/27/17 17:22 Keppra PO 250 mg BID [facility] Administration Levothyroxine Sodium 50 mcg 07/14/17 06:30 07/28/17 05:41 Synthroid PO 50 mcg DAILY@0630 [facility] Administration Losartan Potassium 25 mg 07/25/17 15:00 07/27/17 09:07 Cozaar PO 25 mg DAILY [facility] Administration Modafinil 50 mg 07/24/17 10:00 07/27/17 09:07 Provigil PO 50 mg DAILY [facility] Administration Vitamin A 1 ea 07/19/17 18:00 07/27/17 18:25 Vitamin A & D Oint Ud Foilpak TOP 1 ea BID [facility] Administration - Patient Studies Lab Studies: Microbiology Studies 07/23/17 06:09 Blood Culture - Final Blood-Thru Central Line NO GROWTH AFTER 5 DAYS Gram Stain - Final TEST NOT PERFORMED Lab Studies 07/28/17 07/28/17 07/28/17 Range/Units 05:38 05:37 05:23 WBC 13.8 H (4.8-10.8) K/uL RBC 3.06 L (4.40-5.90) Mil/uL Hgb 9.7 L (12.0-18.0) g/dL Hct 29.1 L (35.0-51.0) % MCV 95.3 H (80.0-94.0) fL MCH 31.7 H (27.0-31.0) pg MCHC 33.3 (33.0-37.0) g/dL RDW 17.0 H (11.5-14.5) % Plt Count 152 (130-400) K/uL MPV 8.9 (7.2-11.7) fL Neut % (Auto) 82.1 H (50.0-75.0) % Lymph % (Auto) 6.8 L (20.0-40.0) % [place] % (Auto) 7.8 (0.0-10.0) % Eos % (Auto) 2.8 (0.0-4.0) % Baso % (Auto) 0.5 (0.0-2.0) % Neut # (Auto) 11.4 H (1.8-7.0) K/uL Lymph # (Auto) 0.9 L (1.0-4.3) K/uL [place] # (Auto) 1.1 H (0.0-0.8) K/uL Eos # (Auto) 0.4 (0.0-0.7) K/uL Baso # (Auto) 0.1 (0.0-0.2) K/uL Neutrophils % (Manual) 82 H (50-75) % Band Neutrophils % 1 (0-2) % Lymphocytes % (Manual) 9 L (20-40) % Monocytes % (Manual) 7 (0-10) % Eosinophils % (Manual) 1 (0-4) % Platelet Estimate Normal (NORMAL) Hypochromasia (manual) Slight Poikilocytosis (manual Slight Anisocytosis (manual) Slight Sodium 139 (132-148) mmol/L Potassium 3.8 (3.6-5.2) mmol/L Chloride 99 (98-107) mmol/L Carbon Dioxide 28 (22-30) mmol/L Anion Gap 16 (10-20) BUN 50 H (9-20) mg/dL Creatinine 5.6 H (0.8-1.5) mg/dL Est GFR ( Amer) 12 Est GFR (Non-Af Amer) 10 POC Glucose (mg/dL) 184 H (65-110) mg/dL Random Glucose 173 H (75-110) mg/dL Calcium 9.0 (8.6-10.4) mg/dl Phosphorus 4.5 (2.5-4.5) mg/dL Magnesium 2.5 H (1.6-2.3) mg/dL Total Bilirubin 0.6 (0.2-1.3) mg/dL AST 54 (17-59) U/L ALT 47 (21-72) U/L Alkaline Phosphatase 175 H (38-126) U/L Total Protein 6.0 L (6.3-8.3) g/dL Albumin 2.7 L (3.5-5.0) g/dL Globulin 3.3 (2.2-3.9) gm/dL Albumin/Globulin Ratio 0.8 L (1.0-2.1) 07/27/17 07/27/17 Range/Units 23:48 17:48 WBC (4.8-10.8) K/uL RBC (4.40-5.90) Mil/uL Hgb (12.0-18.0) g/dL Hct (35.0-51.0) % MCV (80.0-94.0) fL MCH (27.0-31.0) pg MCHC (33.0-37.0) g/dL RDW (11.5-14.5) % Plt Count (130-400) K/uL MPV (7.2-11.7) fL Neut % (Auto) (50.0-75.0) % Lymph % (Auto) (20.0-40.0) % [place] % (Auto) (0.0-10.0) % Eos % (Auto) (0.0-4.0) % Baso % (Auto) (0.0-2.0) % Neut # (Auto) (1.8-7.0) K/uL Lymph # (Auto) (1.0-4.3) K/uL [place] # (Auto) (0.0-0.8) K/uL Eos # (Auto) (0.0-0.7) K/uL Baso # (Auto) (0.0-0.2) K/uL Neutrophils % (Manual) (50-75) % Band Neutrophils % (0-2) % Lymphocytes % (Manual) (20-40) % Monocytes % (Manual) (0-10) % Eosinophils % (Manual) (0-4) % Platelet Estimate (NORMAL) Hypochromasia (manual) Poikilocytosis (manual Anisocytosis (manual) Sodium (132-148) mmol/L Potassium (3.6-5.2) mmol/L Chloride (98-107) mmol/L Carbon Dioxide (22-30) mmol/L Anion Gap (10-20) BUN (9-20) mg/dL Creatinine (0.8-1.5) mg/dL Est GFR ( Amer) Est GFR (Non-Af Amer) POC Glucose (mg/dL) 236 H 155 H (65-110) mg/dL Random Glucose (75-110) mg/dL Calcium (8.6-10.4) mg/dl Phosphorus (2.5-4.5) mg/dL Magnesium (1.6-2.3) mg/dL Total Bilirubin (0.2-1.3) mg/dL AST (17-59) U/L ALT (21-72) U/L Alkaline Phosphatase (38-126) U/L Total Protein (6.3-8.3) g/dL Albumin (3.5-5.0) g/dL Globulin (2.2-3.9) gm/dL Albumin/Globulin Ratio (1.0-2.1) Laboratory Results - last 24 hr 07/27/17 07/27/17 07/28/17 17:48 23:48 05:23 WBC RBC Hgb Hct MCV MCH MCHC RDW Plt Count MPV Neut % (Auto) Lymph % (Auto) [place] % (Auto) Eos % (Auto) Baso % (Auto) Neut # (Auto) Lymph # (Auto) [place] # (Auto) Eos # (Auto) Baso # (Auto) Neutrophils % (Manual) Band Neutrophils % Lymphocytes % (Manual) Monocytes % (Manual) Eosinophils % (Manual) Platelet Estimate Hypochromasia (manual) Poikilocytosis (manual Anisocytosis (manual) Sodium Potassium Chloride Carbon Dioxide Anion Gap BUN Creatinine Est GFR ( Amer) Est GFR (Non-Af Amer) POC Glucose (mg/dL) 155 H 236 H 184 H Random Glucose Calcium Phosphorus Magnesium Total Bilirubin AST ALT Alkaline Phosphatase Total Protein Albumin Globulin Albumin/Globulin Ratio 07/28/17 07/28/17 05:37 05:38 WBC 13.8 H RBC 3.06 L Hgb 9.7 L Hct 29.1 L MCV 95.3 H MCH 31.7 H MCHC 33.3 RDW 17.0 H Plt Count 152 MPV 8.9 Neut % (Auto) 82.1 H Lymph % (Auto) 6.8 L [place] % (Auto) 7.8 Eos % (Auto) 2.8 Baso % (Auto) 0.5 Neut # (Auto) 11.4 H Lymph # (Auto) 0.9 L [place] # (Auto) 1.1 H Eos # (Auto) 0.4 Baso # (Auto) 0.1 Neutrophils % (Manual) 82 H Band Neutrophils % 1 Lymphocytes % (Manual) 9 L Monocytes % (Manual) 7 Eosinophils % (Manual) 1 Platelet Estimate Normal Hypochromasia (manual) Slight Poikilocytosis (manual Slight Anisocytosis (manual) Slight Sodium 139 Potassium 3.8 Chloride 99 Carbon Dioxide 28 Anion Gap 16 BUN 50 H Creatinine 5.6 H Est GFR ( Amer) 12 Est GFR (Non-Af Amer) 10 POC Glucose (mg/dL) Random Glucose 173 H Calcium 9.0 Phosphorus 4.5 Magnesium 2.5 H Total Bilirubin 0.6 AST 54 ALT 47 Alkaline Phosphatase 175 H Total Protein 6.0 L Albumin 2.7 L Globulin 3.3 Albumin/Globulin Ratio 0.8 L Fingerstick Blood Sugar Results: 155 Assessment/Plan - Assessment and Plan (Free Text) Assessment: This is a 76 year old male with HTN, DM, Hypercholesterimia, CAD, CABG with 5 vessel disease, ESRD on peritoneal dialysis, with symptomatic bradycardia s/p pacemaker placed [address] Valencia, hypothyroidism, who presented to the ED on 07/28 for dysphagia and slurred speech, was diagnosed with Yu's Palsy. Patient is with persistent AMS 2/2 Metabolic Encephalopathy. Started on HD. Plan: Neuro: Intubated 2/2 Respiratory Failure PRVC 14/40/450/5 - Extubated 07/27/17 A: Metabolic Encephalopathy Neurology consulted - Dr. 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 - Started Keppra 250mg PO BID A: Right Yu's Palsy Neurology: Dr. Thompson - on board Imaging: - Head CT: 1. Confluent area of low attenuation within the right frontal subcortical white matter suggestive for chronic ischemic change. 2. Scattered areas of chronic microvascular ischemic change. 3. Prominent ventricles. 4. No evidence of acute intracranial hemorrhage. If there is persistent concern for acute ischemic change, correlation with MRI is recommended. - Head/ Neck CTA: There is nonvisualization origin left vertebral artery. Left vertebral artery reconstitutes at approximately the lower C5 level and is seen on as a patent vessel to the level of the C2 segment where the vertebral artery is no longer visualized and appears to be occluded. Findings could represent sequela of atherosclerotic disease or dissection. Clinical correlation recommended. Right vertebral artery is patent throughout. The common carotid arteries, carotid bifurcations and internal carotid artery is widely patent. There is a calcified atherosclerotic plaque both cavernous carotid segments. The the at anterior middle and posterior cerebral arteries are patent. No evidence of large aneurysm nor vascular malformation. - Not able to have MRI - due to recent PPM placement - 07/[address]: No intracranial mass, hemorrhage or evidence of acute infarct. Right frontal encephalomalacia, possibly old MCA territory infarct. Small nonspecific right mastoid effusion. Chronic white matter ischemic change. A: Hx CVA -ASA 81mg, Plavix 75mg (held), Crestor 10mg Cardio: A: HTN, CAD, CABG with 5 vessel disease, with symptomatic bradycardia s/p pacemaker placed [address] Valencia - Recent ECHO performed in Dr. Elizabeth's office as outpatient - ASA 81mg, Plavix 75mg, Coreg 12.5mg PO BID, Cozaar 25mg, Crestor 10mg Pulm: A: Acute Respiratory Failure - Extubated 07/27/17 Endo: A: Hypothyroidism - Resumed Synthroid 50 mcg A: DM - Accuchecks - ISS - medium - A1C 8.4 GI: A: Cirrhosis, etiology unclear Dr. Irvin consulted Renal: A: ESRD previously on peritoneal dialysis Nephrology consulted - Dr. Benson - right shiley catheter placed - Procrit Heme/Onc A: Anemia of Chronic Disease - Baseline hemoglobin 9s - Continue with Procrit - S/P transfused 1 unit PRBC 07/23 - Ferrlecit daily x 1 week - Stool occult- negative ID: A: Sepsis 2/2 Otitis Media with right mastoid effusion? Mastoiditis? r/o Meningitis ID consulted - Dr. Gabe Villegas - Workup up ordered - negative to date - Started on Merrem 500 Q12 (07/18), Vanco 500mg on dialysis(07/19), and Acyclovir 400mg Q12 (07/22) Prophylaxis - Pepcid 2/2 to steroids - Heparin during HD - Diet: pending swallow eval - PT/OT DW with Tameka Matthews, PGY-1 <Eren Elizabeth - Last Filed: 08/18/17 08:51> Attending/Attestation - Attestation I have personally seen and examined this patient.: Yes I have fully participated in the care of the patient.: Yes I have reviewed all pertinent clinical information: Yes Notes (Text): pt is seen examined and reviewed with resident and agree with note
[2017-07-28] MEDS: EPOETIN ALFA 10,000 UNIT/ML ML SC SCH (12:47)
--- NOTE | 2017-07-28 13:34 | CP.PCM.PN ---
Subjective - Date & Time of Evaluation Date of Evaluation: 07/28/17 Time of Evaluation: 13:31 - Subjective Subjective: Surgery Pt seen with Dr. Davis. Extubated. Objective - Vital Signs/Intake and Output Vital Signs (last 24 hours): Temp Pulse Resp BP Pulse Ox 97.8 F 85 24 152/65 H 99 07/28/17 11:00 07/28/17 12:30 07/28/17 12:30 07/28/17 12:30 07/28/17 12:30 Intake and Output: 07/28/17 07/28/17 06:59 18:59 Intake Total 480 0 Output Total 0 Balance 480 0 - Medications Medications: Current Medications Acetaminophen (Tylenol 325mg Tab) 650 mg PO Q6 PRN PRN Reason: Fever >100.4 F Last Admin: 07/24/17 07:48 Dose: 650 mg Albuterol/Ipratropium (Duoneb 3 Mg/0.5 Mg (3 Ml) Ud) 3 ml INH RQ6 [facility] Last Admin: 07/28/17 08:05 Dose: 3 ml Artificial Tears (Artificial Tears) 0 ml OD Q3H PRN PRN Reason: Dry eyes Last Admin: 07/26/17 17:34 Dose: 1 drop Aspirin (Aspirin Chewable) 81 mg PO DAILY [facility] Last Admin: 07/27/17 09:07 Dose: 81 mg Calcium Acetate (Phoslo) 667 mg PO TIDCC [facility] Last Admin: 07/28/17 09:00 Dose: 667 mg Carvedilol (Coreg) 6.25 mg PO BID [facility] Last Admin: 07/27/17 17:22 Dose: 6.25 mg Clopidogrel Bisulfate (Plavix) 75 mg PO DAILY [facility] Last Admin: 07/27/17 09:07 Dose: 75 mg Epoetin Kumar (Procrit) 10,000 unit SC MWF [facility] Last Admin: 07/28/17 12:47 Dose: 10,000 unit Famotidine (Pepcid) 20 mg PO DAILY [facility] Last Admin: 07/27/17 09:07 Dose: 20 mg Ferric Sodium Gluconate Complex (Ferrlecit) 125 mg IVPB DAILY [facility] Stop: 08/03/17 10:01 Last Admin: 07/28/17 11:53 Dose: 125 mg Meropenem 500 mg/ Sodium (Chloride) 100 mls @ 100 mls/hr IVPB Q12H [facility] PRN Reason: Protocol Last Admin: 07/27/17 23:30 Dose: 100 mls/hr Acyclovir 200 mg/ Sodium (Chloride) 100 mls @ 100 mls/hr IV Q12H [facility]AYLA PRN Reason: Protocol Last Admin: 07/28/17 00:45 Dose: 100 mls/hr Vancomycin/Sodium Chloride (Vancomycin 1 Gm/Ns 200 Ml) 1 gm in 200 mls @ 166.7 mls/hr IVPB MWF [facility] PRN Reason: Protocol Stop: 08/02/17 09:01 Insulin Human Regular (Novolin R) 0 unit SC Q6 [facility]LA PRN Reason: Protocol Last Admin: 07/28/17 05:41 Dose: 2 unit Levetiracetam (Keppra) 250 mg PO BID [facility] Last Admin: 07/27/17 17:22 Dose: 250 mg Levothyroxine Sodium (Synthroid) 50 mcg PO DAILY@0630 [facility] Last Admin: 07/28/17 05:41 Dose: 50 mcg Losartan Potassium (Cozaar) 25 mg PO DAILY [facility] Last Admin: 07/27/17 09:07 Dose: 25 mg Modafinil (Provigil) 50 mg PO DAILY [facility] Last Admin: 07/27/17 09:07 Dose: 50 mg Vitamin A (Vitamin A & D Oint Ud Foilpak) 1 ea TOP BID [facility] Last Admin: 07/27/17 18:25 Dose: 1 ea - Labs Labs: 07/28/17 05:37 07/28/17 05:38 PT 11.2 SECONDS (9.7-12.2) 07/22/17 20:01 INR 1.0 07/22/17 20:01 APTT 35 SECONDS (21-34) H 07/22/17 20:01 - Constitutional Appears: Non-toxic - Head Exam Head Exam: ATRAUMATIC, NORMAL INSPECTION, NORMOCEPHALIC - Neck Exam Neck Exam: Full ROM, Normal Inspection. absent: Lymphadenopathy - Respiratory Exam Respiratory Exam: NORMAL BREATHING PATTERN - Cardiovascular Exam Cardiovascular Exam: REGULAR RHYTHM, +S1, +S2. absent: Murmur - GI/Abdominal Exam GI & Abdominal Exam: Soft, Normal Bowel Sounds. absent: Tenderness Additional comments: PD cath in place. Assessment and Plan - Assessment and Plan (Free Text) Assessment: ESRD with malfunctioning PD catheter -Will plan for AVF creation and removal of PD cath on -Cont HD via [place] -f/u Vein bernard -NPO after midnight on DW Dr. Davis
--- NOTE | 2017-07-28 17:18 | CP.PCM.PN ---
Subjective - Date & Time of Evaluation Date of Evaluation: 07/28/17 Time of Evaluation: 17:18 - Subjective Subjective: afebrile, More alert, verbalizing. EXTUBATED. LABS REVIEWED. CONTINUE IV ANTIBIOTICS/ ANTIVIRALS Objective - Vital Signs/Intake and Output Vital Signs (last 24 hours): Temp Pulse Resp BP Pulse Ox 98.2 F 82 24 152/54 H 100 07/28/17 12:00 07/28/17 14:00 07/28/17 14:00 07/28/17 14:00 07/28/17 14:00 Intake and Output: 07/28/17 07/28/17 06:59 18:59 Intake Total 480 0 Output Total 0 Balance 480 0 - Medications Medications: Current Medications Acetaminophen (Tylenol 325mg Tab) 650 mg PO Q6 PRN PRN Reason: Fever >100.4 F Last Admin: 07/24/17 07:48 Dose: 650 mg Albuterol/Ipratropium (Duoneb 3 Mg/0.5 Mg (3 Ml) Ud) 3 ml INH RQ6 [facility] Last Admin: 07/28/17 13:52 Dose: 3 ml Artificial Tears (Artificial Tears) 0 ml OD Q3H PRN PRN Reason: Dry eyes Last Admin: 07/26/17 17:34 Dose: 1 drop Aspirin (Aspirin Chewable) 81 mg PO DAILY [facility] Last Admin: 07/27/17 09:07 Dose: 81 mg Calcium Acetate (Phoslo) 667 mg PO TIDCC [facility] Last Admin: 07/28/17 09:00 Dose: 667 mg Carvedilol (Coreg) 6.25 mg PO BID [facility] Last Admin: 07/27/17 17:22 Dose: 6.25 mg Clopidogrel Bisulfate (Plavix) 75 mg PO DAILY [facility] Last Admin: 07/27/17 09:07 Dose: 75 mg Epoetin Kumar (Procrit) 10,000 unit SC MWF [facility] Last Admin: 07/28/17 12:47 Dose: 10,000 unit Famotidine (Pepcid) 20 mg PO DAILY [facility] Last Admin: 07/27/17 09:07 Dose: 20 mg Ferric Sodium Gluconate Complex (Ferrlecit) 125 mg IVPB DAILY [facility] Stop: 08/03/17 10:01 Last Admin: 07/28/17 11:53 Dose: 125 mg Meropenem 500 mg/ Sodium (Chloride) 100 mls @ 100 mls/hr IVPB Q12H [facility] PRN Reason: Protocol Last Admin: 07/27/17 23:30 Dose: 100 mls/hr Acyclovir 200 mg/ Sodium (Chloride) 100 mls @ 100 mls/hr IV Q12H [facility] PRN Reason: Protocol Last Admin: 07/28/17 00:45 Dose: 100 mls/hr Vancomycin/Sodium Chloride (Vancomycin 1 Gm/Ns 200 Ml) 1 gm in 200 mls @ 166.7 mls/hr IVPB MWF [facility] PRN Reason: Protocol Stop: 08/02/17 09:01 Insulin Human Regular (Novolin R) 0 unit SC Q6 [facility] PRN Reason: Protocol Last Admin: 07/28/17 05:41 Dose: 2 unit Levetiracetam (Keppra) 250 mg PO BID [facility] Last Admin: 07/27/17 17:22 Dose: 250 mg Levothyroxine Sodium (Synthroid) 50 mcg PO DAILY@0630 [facility] Last Admin: 07/28/17 05:41 Dose: 50 mcg Losartan Potassium (Cozaar) 25 mg PO DAILY [facility] Last Admin: 07/27/17 09:07 Dose: 25 mg Modafinil (Provigil) 50 mg PO DAILY [facility] Last Admin: 07/27/17 09:07 Dose: 50 mg Saccharomyces Boulardii (Florastor) 250 mg PO Q12 [facility] Vitamin A (Vitamin A & D Oint Ud Foilpak) 1 ea TOP BID [facility] Last Admin: 07/27/17 18:25 Dose: 1 ea - Labs Labs: 07/28/17 05:37 07/28/17 05:38 PT 11.2 SECONDS (9.7-12.2) 07/22/17 20:01 INR 1.0 07/22/17 20:01 APTT 35 SECONDS (21-34) H 07/22/17 20:01 - Constitutional Appears: No Acute Distress - Eye Exam Eye Exam: EOMI, PERRL - ENT Exam ENT Exam: Normal Oropharynx - Neck Exam Neck Exam: Normal Inspection - Respiratory Exam Respiratory Exam: Decreased Breath Sounds - Cardiovascular Exam Cardiovascular Exam: REGULAR RHYTHM, +S1, +S2 - GI/Abdominal Exam GI & Abdominal Exam: Soft, Normal Bowel Sounds - Extremities Exam Extremities Exam: Normal Capillary Refill. absent: Calf Tenderness, Pedal Edema - Neurological Exam Neurological Exam: Awake (RIGHT FACIAL PALSY) - Psychiatric Exam Psychiatric exam: Normal Affect - Skin Skin Exam: Normal Color, Warm Assessment and Plan (1) Toxic metabolic encephalopathy Assessment & Plan: IMPROVING CONTINUE IV VANCOMYCIN 1 G POST-EACH HEMODIALYSIS MWF CONTINUE MERREM 500 MG EVERY 12 HOURLY.07/18/17 CONTINUE iv ACYCLOVIR 200 MG iv EVERY 12 HOURLY 07/20/17 x total of 14days. f/u neuro status. Status: Acute (2) Yu palsy Assessment & Plan: case discussed with Dr. Acuna NEUROLOGIST. CONTINUE PRESENT MANAGEMENT, PATIENT SEEMS TO BE IMPROVING COMBINATION OF TOXIC METABOLIC ENCEPHALOPATHY / AND OLD INFARCT.. NO NEED FOR LP NOW. WILL EMPIRICALLY TREAT WITH ANTIVIRALS FOR TOTAL OF [address] MASTOID RIGHT SIDE R/O CHOLESTEATOMA. 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 Status: Acute (5) Heart block AV complete Assessment & Plan: status post permanent pacemaker x 3 weeks ago Status: Acute
[2017-07-28] MEDS: Vancomycin 1 gm/NS 200 ml 1 GM/200 ML BAG IVPB SCH (18:40)
[2017-07-28] MEDS: Saccharomyces Boulardi 250 mg Cap PO SCH (22:59)
[2017-07-29] MEDS: (Novolin R) Insulin Human Regular 100 units/ml vial SC SCH ×5 (00:15→23:57)
[2017-07-29] MEDS: Albuterol-Ipratrop 3 mg / 0.5 (3 ml) UD INH SCH ×4 (02:31→19:53)
[2017-07-29 06:38] LABS: BASO % 0.4 % (0.0-2.0); EOS # 0.4 K/uL (0.0-0.7); EOS % 3.4 % (0.0-4.0); HEMOGLOBIN 8.7 g/dL (12.0-18.0); LYMPH # 1.1 K/uL (1.0-4.3); LYMPH % 9.3 % (20.0-40.0); MEAN CELL VOLUME 95.6 fL (80.0-94.0); MEAN CORPUSCULAR HEMOGLOBIN 31.4 pg (27.0-31.0); MEAN CORPUSCULAR HGB CONC 32.9 g/dL (33.0-37.0); MEAN PLATELET VOLUME 9.2 fL (7.2-11.7); MONO # 1.2 K/uL (0.0-0.8); MONO % 10.1 % (0.0-10.0); NEUT # 8.8 K/uL (1.8-7.0); NEUT % 76.8 % (50.0-75.0); NRBC % 0.1 % (0.0-2.0); PLATELET COUNT 98 K/uL (130-400); RBC 2.77 Mil/uL (4.40-5.90); RED CELL DISTRIBUTION WIDTH 17.5 % (11.5-14.5); WHITE BLOOD COUNT 11.5 K/uL (4.8-10.8)
[2017-07-29] MEDS: Levothyroxine 50 MCG TAB PO SCH (06:38)
[2017-07-29 07:09] LABS: ALB/GLOB RATIO 0.9 (1.0-2.1); ALBUMIN 2.6 g/dL (3.5-5.0); CALCIUM 7.7 mg/dl (8.6-10.4)
[2017-07-29 08:35] LABS: EOSINOPHIL 4 % (0-4); NEUTROPHIL 79 % (50-75); TOTAL CELLS COUNTED 100
[2017-07-29 08:36] LABS: ANISOCYTOSIS SLIGHT; LYMPHOCYTE 8 % (20-40); MONOCYTE 9 % (0-10); OVALOCYTES SLIGHT; PLATELET ESTIMATE DECREASED (NORMAL)
[2017-07-29] MEDS: Vitamins A & D Oint UD Foilpak TOP SCH ×2 (09:09→17:04)
[2017-07-29] MEDS: Saccharomyces Boulardi 250 mg Cap PO SCH ×2 (09:11→21:57)
[2017-07-29] MEDS: Ferric Sodium Gluconat Complex 62.5 mg/5 ml Vial IVPB SCH (09:13)
[2017-07-29] MEDS: Modafinil 50 MG TAB PO SCH (09:15)
--- NOTE | 2017-07-29 09:27 | RAD ---
HISTORY: lethargy evaluate for aspiration COMPARISON: Comparison chest dated 07/28/2017 FINDINGS: In situ ETT NGT the tip of which lies in the left upper quadrant of the abdomen. In situ right subclavian central line with tip in the SVC unchanged LUNGS: Slightly improved pulmonary vascular congestive changes however there are persistent mild bilateral lower lobe alveolar-type infiltrates and bilateral effusions PLEURA: No significant pleural effusion identified, no pneumothorax apparent. CARDIOVASCULAR: Cardiomegaly. No change multi lead pacemaker/defibrillator OSSEOUS STRUCTURES: No significant abnormalities. VISUALIZED UPPER ABDOMEN: Normal. OTHER FINDINGS: None. IMPRESSION: Support lines and tubes as above. Slightly improved pulmonary vascular congestive changes however there are persistent mild bilateral lower lobe alveolar-type infiltrates and bilateral effusions
--- NOTE | 2017-07-29 10:20 | CP.PCM.PN ---
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 and as well pt lethargic, unable to obtain ros Objective - Vital Signs/Intake and Output Vital Signs (last 24 hours): Temp Pulse Resp BP Pulse Ox 98.4 F 84 25 H 163/61 H 100 07/29/17 04:00 07/29/17 07:20 07/29/17 07:20 07/29/17 07:20 07/29/17 07:20 Intake and Output: 07/29/17 07/29/17 06:59 18:59 Intake Total 460 30 Output Total 50 0 Balance 410 30 - Medications Medications: Current Medications Acetaminophen (Tylenol 325mg Tab) 650 mg PO Q6 PRN PRN Reason: Fever >100.4 F Last Admin: 07/24/17 07:48 Dose: 650 mg Albuterol/Ipratropium (Duoneb 3 Mg/0.5 Mg (3 Ml) Ud) 3 ml INH RQ6 [facility] Last Admin: 07/29/17 07:46 Dose: 3 ml Artificial Tears (Artificial Tears) 0 ml OD Q3H PRN PRN Reason: Dry eyes Last Admin: 07/26/17 17:34 Dose: 1 drop Aspirin (Aspirin Chewable) 81 mg PO DAILY [facility] Last Admin: 07/28/17 17:46 Dose: Not Given Calcium Acetate (Phoslo) 667 mg PO TIDCC [facility] Last Admin: 07/29/17 08:45 Dose: 667 mg Carvedilol (Coreg) 6.25 mg PO BID [facility] Last Admin: 07/29/17 09:10 Dose: 6.25 mg Clopidogrel Bisulfate (Plavix) 75 mg PO DAILY [facility] Last Admin: 07/29/17 09:14 Dose: 75 mg Epoetin Kumar (Procrit) 10,000 unit SC MWF [facility] Last Admin: 07/28/17 12:47 Dose: 10,000 unit Famotidine (Pepcid) 20 mg PO DAILY [facility] Last Admin: 07/29/17 09:09 Dose: 20 mg Ferric Sodium Gluconate Complex (Ferrlecit) 125 mg IVPB DAILY [facility] Stop: 08/03/17 10:01 Last Admin: 07/29/17 09:13 Dose: 125 mg Meropenem 500 mg/ Sodium (Chloride) 100 mls @ 100 mls/hr IVPB Q12H [facility] PRN Reason: Protocol Last Admin: 07/28/17 11:48 Dose: Not Given Acyclovir 200 mg/ Sodium (Chloride) 100 mls @ 100 mls/hr IV Q12H [facility] PRN Reason: Protocol Last Admin: 07/29/17 00:30 Dose: 100 mls/hr Vancomycin/Sodium Chloride (Vancomycin 1 Gm/Ns 200 Ml) 1 gm in 200 mls @ 166.7 mls/hr IVPB MWF [facility] PRN Reason: Protocol Stop: 08/02/17 09:01 Last Admin: 07/28/17 18:40 Dose: 166.7 mls/hr Insulin Human Regular (Novolin R) 0 unit SC Q6 [facility] PRN Reason: Protocol Last Admin: 07/29/17 06:36 Dose: Not Given Levetiracetam (Keppra) 250 mg PO BID [facility] Last Admin: 07/29/17 09:11 Dose: 250 mg Levothyroxine Sodium (Synthroid) 50 mcg PO DAILY@0630 [facility] Last Admin: 07/29/17 06:38 Dose: 50 mcg Losartan Potassium (Cozaar) 25 mg PO DAILY [facility] Last Admin: 07/29/17 09:10 Dose: 25 mg Modafinil (Provigil) 50 mg PO DAILY [facility] Last Admin: 07/29/17 09:15 Dose: 50 mg Saccharomyces Boulardii (Florastor) 250 mg PO Q12 [facility] Last Admin: 07/29/17 09:11 Dose: 250 mg Vitamin A (Vitamin A & D Oint Ud Foilpak) 1 ea TOP BID [facility] Last Admin: 07/29/17 09:09 Dose: 1 ea - Labs Labs: 07/29/17 06:24 07/29/17 06:14 PT 11.2 SECONDS (9.7-12.2) 07/22/17 20:01 INR 1.0 07/22/17 20:01 APTT 35 SECONDS (21-34) H 07/22/17 20:01 - Constitutional Appears: No Acute Distress, Older Than Stated Age, Chronically Ill - Head Exam Head Exam: NORMAL INSPECTION, NORMOCEPHALIC - Eye Exam Eye Exam: Normal appearance, PERRL - ENT Exam ENT Exam: Mucous Membranes Dry (ng tube) - Neck Exam Neck Exam: Normal Inspection - Respiratory Exam Respiratory Exam: Decreased Breath Sounds, NORMAL BREATHING PATTERN - GI/Abdominal Exam GI & Abdominal Exam: Distended, Soft, Normal Bowel Sounds - Extremities Exam Extremities Exam: Normal Inspection - Neurological Exam Neurological Exam: absent: Alert, Awake - Skin Skin Exam: Dry, Warm Assessment and Plan (1) TIA (transient ischemic attack) Status: Acute (2) ESRD (end stage renal disease) Status: Acute (3) Heart block Status: Acute (4) Syncope Status: Acute - Assessment and Plan (Free Text) Assessment: esrd TIA Metabolic encephalopathy htn anemia plan: maintain hd mwf, plan for permcath/avf noted. needs PD cath removal as well renal dosing of acyclovir noted, please administer post dialysis on hd days perri iv iron. poor responder
[2017-07-29 13:15] LABS: EOS # 0.4 K/uL (0.0-0.7); HEMOGLOBIN 8.7 g/dL (12.0-18.0); MONO # 1.3 K/uL (0.0-0.8); MONO % 11.9 % (0.0-10.0); NEUT # 7.9 K/uL (1.8-7.0); WHITE BLOOD COUNT 10.8 K/uL (4.8-10.8)
[2017-07-29 13:20] LABS: BASO % 0.4 % (0.0-2.0); EOS % 4.2 % (0.0-4.0); LYMPH # 1.1 K/uL (1.0-4.3); LYMPH % 10.1 % (20.0-40.0); MEAN CELL VOLUME 94.2 fL (80.0-94.0); MEAN CORPUSCULAR HEMOGLOBIN 31.8 pg (27.0-31.0); MEAN CORPUSCULAR HGB CONC 33.8 g/dL (33.0-37.0); MEAN PLATELET VOLUME 8.4 fL (7.2-11.7); NEUT % 73.4 % (50.0-75.0); RBC 2.73 Mil/uL (4.40-5.90); RED CELL DISTRIBUTION WIDTH 17.5 % (11.5-14.5)
[2017-07-29] MEDS: Nystatin 100,000 Units/gm Cream(15 gm) TOP SCH ×2 (13:52→17:16)
--- NOTE | 2017-07-29 14:08 | CP.CCUPN ---
<Tameka Chin - Last Filed: 07/29/17 13:56> CCU Subjective - Physician Review Subjective (Free Text): Patient seen and examined at bedside. Patient is more responsive, alert. CCU Objective - Vital Signs / Intake & Output Vital Signs (Last 4 hours): Vital Signs Temp Pulse Resp BP Pulse Ox 07/29/17 12:20 78 17 150/60 100 07/29/17 12:00 97.4 F L 100 07/29/17 11:19 79 26 H 159/66 H 96 07/29/17 10:20 81 27 H 150/55 L 100 Intake and Output (Last 8hrs): Intake & Output 07/28/17 07/29/17 07/29/17 22:59 06:59 14:59 Intake Total 120 340 300 Output Total 0 50 1 Balance 120 290 299 Weight 169 lb 12.095 oz Intake: Intake, IV Amount 100 200 Left Antecubital 100 200 Oral 0 Tube Feeding 120 240 100 Output: Urine 0 0 0 Urine, Voided 0 0 0 Stool 0 50 0 Urine/Stool Mix 1 Other: # Bowel Movements 1 - Physical Exam Head: Positive for: Atraumatic, Normocephalic Pupils: Positive for: PERRL Extroacular Muscles: Positive for: EOMI Conjunctiva: Positive for: Normal Mouth: Positive for: Dry Nose (Internal): Positive for: Other (NGT in place) Neck: Positive for: Normal Range of Motion, Other (shiley catheter in place ) Respiratory/Chest: Positive for: Clear to Auscultation, Good Air Exchange. Negative for: Respiratory Distress Cardiovascular: Positive for: Tachycardic Abdomen: Positive for: Normal Bowel Sounds, Other (peritoneal catheter in place , c/d/i ) Back: Positive for: Normal Inspection Upper Extremity: Positive for: Normal Inspection, NORMAL PULSES, Neurovascularly Intact, Capillary Refill < 2s. Negative for: Cyanosis, Edema, Tenderness, Swelling, Erythema Lower Extremity: Positive for: Normal Inspection, NORMAL PULSES. Negative for: Edema, CALF TENDERNESS, Tenderness, Swelling, Erythema Neurological: Positive for: Other (right facial droop ) Skin: Positive for: Warm, Dry, Normal Color. Negative for: Rashes Psychiatric: Positive for: Alert, Lethargic - Medications Active Medications: Active Medications Generic Name Dose Route Start Last Admin Trade Name Freq PRN Reason Stop Dose Admin Acetaminophen 650 mg 06/14/18 07:42 07/24/17 07:48 Tylenol 325mg Tab PO 650 mg Q6 PRN Administration Fever >100.4 F Albuterol/Ipratropium 3 ml 07/13/17 14:00 07/29/17 13:36 Duoneb 3 Mg/0.5 Mg (3 Ml) Ud INH 3 ml RQ6 JAYLA Administration Artificial Tears 0 ml 07/13/17 22:00 07/26/17 17:34 Artificial Tears OD 1 drop Q3H PRN Administration Dry eyes Aspirin 81 mg 07/15/17 10:00 07/28/17 17:46 Aspirin Chewable PO Not Given DAILY [facility] Calcium Acetate 667 mg 07/13/17 12:00 07/29/17 11:56 Phoslo PO 667 mg TIDCC JAYLA Administration Carvedilol 6.25 mg 07/23/17 18:00 07/29/17 09:10 Coreg PO 6.25 mg BID JAYLA Administration Clopidogrel Bisulfate 75 mg 07/15/17 10:00 07/29/17 09:14 Plavix PO 75 mg DAILY JAYLA Administration Epoetin Kumar 10,000 unit 07/16/17 09:00 07/28/17 12:47 Procrit SC 10,000 unit [facility] Administration Famotidine 20 mg 07/25/17 12:15 07/29/17 09:09 Pepcid PO 20 mg DAILY JAYLA Administration Ferric Sodium Gluconate Complex 125 mg 07/26/17 10:00 07/29/17 09:13 Ferrlecit IVPB 08/03/17 10:01 125 mg DAILY JAYLA Administration Meropenem 500 mg/ Sodium 100 mls @ 100 mls/hr 07/18/17 23:30 07/28/17 11:48 Chloride IVPB Not Given Q12H [facility] Protocol Acyclovir 200 mg/ Sodium 100 mls @ 100 mls/hr 07/22/17 13:00 07/29/17 12:00 Chloride IV 100 mls/hr Q12H JAYLA Administration Protocol Vancomycin/Sodium Chloride 1 gm in 200 mls @ 166.7 mls/hr 07/28/17 09:00 18:40 Vancomycin 1 Gm/Ns 200 Ml IVPB 08/02/17 09:01 166.7 mls/hr MWF JAYLA Administration Protocol Insulin Human Regular 0 unit 07/15/17 07:32 07/29/17 11:54 Novolin R SC 2 unit Q6 JAYLA Administration Protocol Levetiracetam 250 mg 07/24/17 18:30 07/29/17 09:11 Keppra PO 250 mg BID JAYLA Administration Levothyroxine Sodium 50 mcg 07/14/17 06:30 07/29/17 06:38 Synthroid PO 50 mcg DAILY@0630 JAYLA Administration Losartan Potassium 25 mg 07/25/17 15:00 07/29/17 09:10 Cozaar PO 25 mg DAILY JAYLA Administration Modafinil 50 mg 07/24/17 10:00 07/29/17 09:15 Provigil PO 50 mg DAILY JAYLA Administration Nystatin 1 ea 07/29/17 14:00 07/29/17 13:52 Mycostatin Cream TOP 1 applic TID JAYLA Administration Saccharomyces Boulardii 250 mg 07/28/17 22:00 07/29/17 09:11 Florastor PO 250 mg Q12 JAYLA Administration Vitamin A 1 ea 07/19/17 18:00 07/29/17 09:09 Vitamin A & D Oint Ud Foilpak TOP 1 ea BID JAYLA Administration - Patient Studies Lab Studies: Lab Studies 07/29/17 07/29/17 07/29/17 Range/Units 13:08 11:35 06:24 WBC 10.8 11.5 H (4.8-10.8) K/uL RBC 2.73 L 2.77 L (4.40-5.90) Mil/uL Hgb 8.7 L 8.7 L (12.0-18.0) g/dL Hct 25.7 L 26.5 L (35.0-51.0) % MCV 94.2 H 95.6 H (80.0-94.0) fL MCH 31.8 H 31.4 H (27.0-31.0) pg MCHC 33.8 32.9 L (33.0-37.0) g/dL RDW 17.5 H 17.5 H (11.5-14.5) % Plt Count 116 L 98 L D (130-400) K/uL MPV 8.4 9.2 (7.2-11.7) fL Neut % (Auto) 73.4 76.8 H (50.0-75.0) % Lymph % (Auto) 10.1 L 9.3 L (20.0-40.0) % [place] % (Auto) 11.9 H 10.1 H (0.0-10.0) % Eos % (Auto) 4.2 H 3.4 (0.0-4.0) % Baso % (Auto) 0.4 0.4 (0.0-2.0) % Neut # (Auto) 7.9 H 8.8 H (1.8-7.0) K/uL Lymph # (Auto) 1.1 1.1 (1.0-4.3) K/uL [place] # (Auto) 1.3 H 1.2 H (0.0-0.8) K/uL Eos # (Auto) 0.4 0.4 (0.0-0.7) K/uL Baso # (Auto) 0.0 0.0 (0.0-0.2) K/uL Neutrophils % (Manual) 79 H (50-75) % Lymphocytes % (Manual) 8 L (20-40) % Monocytes % (Manual) 9 (0-10) % Eosinophils % (Manual) 4 (0-4) % Differential Comment Platelet Estimate Decreased L (NORMAL) Anisocytosis (manual) Slight Ovalocytes Slight Sodium (132-148) mmol/L Potassium (3.6-5.2) mmol/L Chloride (98-107) mmol/L Carbon Dioxide (22-30) mmol/L Anion Gap (10-20) BUN (9-20) mg/dL Creatinine (0.8-1.5) mg/dL Est GFR ( Amer) Est GFR (Non-Af Amer) POC Glucose (mg/dL) 162 H (65-110) mg/dL Random Glucose (75-110) mg/dL Calcium (8.6-10.4) mg/dl Phosphorus (2.5-4.5) mg/dL Magnesium (1.6-2.3) mg/dL % Saturation (20-55) Ferritin ng/mL Total Bilirubin (0.2-1.3) mg/dL AST (17-59) U/L ALT (21-72) U/L Alkaline Phosphatase (38-126) U/L Total Protein (6.3-8.3) g/dL Albumin (3.5-5.0) g/dL Globulin (2.2-3.9) gm/dL Albumin/Globulin Ratio (1.0-2.1) 07/29/17 07/29/17 07/29/17 Range/Units 06:14 06:14 05:59 WBC (4.8-10.8) K/uL RBC (4.40-5.90) Mil/uL Hgb (12.0-18.0) g/dL Hct (35.0-51.0) % MCV (80.0-94.0) fL MCH (27.0-31.0) pg MCHC (33.0-37.0) g/dL RDW (11.5-14.5) % Plt Count (130-400) K/uL MPV (7.2-11.7) fL Neut % (Auto) (50.0-75.0) % Lymph % (Auto) (20.0-40.0) % [place] % (Auto) (0.0-10.0) % Eos % (Auto) (0.0-4.0) % Baso % (Auto) (0.0-2.0) % Neut # (Auto) (1.8-7.0) K/uL Lymph # (Auto) (1.0-4.3) K/uL [place] # (Auto) (0.0-0.8) K/uL Eos # (Auto) (0.0-0.7) K/uL Baso # (Auto) (0.0-0.2) K/uL Neutrophils % (Manual) (50-75) % Lymphocytes % (Manual) (20-40) % Monocytes % (Manual) (0-10) % Eosinophils % (Manual) (0-4) % Differential Comment Platelet Estimate (NORMAL) Anisocytosis (manual) Ovalocytes Sodium 132 (132-148) mmol/L Potassium 4.3 (3.6-5.2) mmol/L Chloride 95 L (98-107) mmol/L Carbon Dioxide 29 (22-30) mmol/L Anion Gap 13 (10-20) BUN 38 H (9-20) mg/dL Creatinine 4.2 H (0.8-1.5) mg/dL Est GFR ( Amer) 17 Est GFR (Non-Af Amer) 14 POC Glucose (mg/dL) 177 H (65-110) mg/dL Random Glucose 189 H (75-110) mg/dL Calcium 7.7 L (8.6-10.4) mg/dl Phosphorus 4.1 (2.5-4.5) mg/dL Magnesium 2.2 (1.6-2.3) mg/dL % Saturation 17 L (20-55) Ferritin 1130.0 ng/mL Total Bilirubin 0.9 (0.2-1.3) mg/dL AST 57 (17-59) U/L ALT 41 (21-72) U/L Alkaline Phosphatase 115 (38-126) U/L Total Protein 5.6 L (6.3-8.3) g/dL Albumin 2.6 L (3.5-5.0) g/dL Globulin 3.0 (2.2-3.9) gm/dL Albumin/Globulin Ratio 0.9 L (1.0-2.1) 07/28/17 07/28/17 Range/Units 23:20 17:50 WBC (4.8-10.8) K/uL RBC (4.40-5.90) Mil/uL Hgb (12.0-18.0) g/dL Hct (35.0-51.0) % MCV (80.0-94.0) fL MCH (27.0-31.0) pg MCHC (33.0-37.0) g/dL RDW (11.5-14.5) % Plt Count (130-400) K/uL MPV (7.2-11.7) fL Neut % (Auto) (50.0-75.0) % Lymph % (Auto) (20.0-40.0) % [place] % (Auto) (0.0-10.0) % Eos % (Auto) (0.0-4.0) % Baso % (Auto) (0.0-2.0) % Neut # (Auto) (1.8-7.0) K/uL Lymph # (Auto) (1.0-4.3) K/uL [place] # (Auto) (0.0-0.8) K/uL Eos # (Auto) (0.0-0.7) K/uL Baso # (Auto) (0.0-0.2) K/uL Neutrophils % (Manual) (50-75) % Lymphocytes % (Manual) (20-40) % Monocytes % (Manual) (0-10) % Eosinophils % (Manual) (0-4) % Differential Comment Platelet Estimate (NORMAL) Anisocytosis (manual) Ovalocytes Sodium (132-148) mmol/L Potassium (3.6-5.2) mmol/L Chloride (98-107) mmol/L Carbon Dioxide (22-30) mmol/L Anion Gap (10-20) BUN (9-20) mg/dL Creatinine (0.8-1.5) mg/dL Est GFR ( Amer) Est GFR (Non-Af Amer) POC Glucose (mg/dL) 156 H 133 H (65-110) mg/dL Random Glucose (75-110) mg/dL Calcium (8.6-10.4) mg/dl Phosphorus (2.5-4.5) mg/dL Magnesium (1.6-2.3) mg/dL % Saturation (20-55) Ferritin ng/mL Total Bilirubin (0.2-1.3) mg/dL AST (17-59) U/L ALT (21-72) U/L Alkaline Phosphatase (38-126) U/L Total Protein (6.3-8.3) g/dL Albumin (3.5-5.0) g/dL Globulin (2.2-3.9) gm/dL Albumin/Globulin Ratio (1.0-2.1) Laboratory Results - last 24 hr 07/28/17 07/28/17 07/29/17 17:50 23:20 05:59 WBC RBC Hgb Hct MCV MCH MCHC RDW Plt Count MPV Neut % (Auto) Lymph % (Auto) [place] % (Auto) Eos % (Auto) Baso % (Auto) Neut # (Auto) Lymph # (Auto) [place] # (Auto) Eos # (Auto) Baso # (Auto) Neutrophils % (Manual) Lymphocytes % (Manual) Monocytes % (Manual) Eosinophils % (Manual) Differential Comment Platelet Estimate Anisocytosis (manual) Ovalocytes Sodium Potassium Chloride Carbon Dioxide Anion Gap BUN Creatinine Est GFR ( Amer) Est GFR (Non-Af Amer) POC Glucose (mg/dL) 133 H 156 H 177 H Random Glucose Calcium Phosphorus Magnesium % Saturation Ferritin Total Bilirubin AST ALT Alkaline Phosphatase Total Protein Albumin Globulin Albumin/Globulin Ratio 07/29/17 07/29/17 07/29/17 06:14 06:14 06:24 WBC 11.5 H RBC 2.77 L Hgb 8.7 L Hct 26.5 L MCV 95.6 H MCH 31.4 H MCHC 32.9 L RDW 17.5 H Plt Count 98 L D MPV 9.2 Neut % (Auto) 76.8 H Lymph % (Auto) 9.3 L [place] % (Auto) 10.1 H Eos % (Auto) 3.4 Baso % (Auto) 0.4 Neut # (Auto) 8.8 H Lymph # (Auto) 1.1 [place] # (Auto) 1.2 H Eos # (Auto) 0.4 Baso # (Auto) 0.0 Neutrophils % (Manual) 79 H Lymphocytes % (Manual) 8 L Monocytes % (Manual) 9 Eosinophils % (Manual) 4 Differential Comment Platelet Estimate Decreased L Anisocytosis (manual) Slight Ovalocytes Slight Sodium 132 Potassium 4.3 Chloride 95 L Carbon Dioxide 29 Anion Gap 13 BUN 38 H Creatinine 4.2 H Est GFR ( Amer) 17 Est GFR (Non-Af Amer) 14 POC Glucose (mg/dL) Random Glucose 189 H Calcium 7.7 L Phosphorus 4.1 Magnesium 2.2 % Saturation 17 L Ferritin 1130.0 Total Bilirubin 0.9 AST 57 ALT 41 Alkaline Phosphatase 115 Total Protein 5.6 L Albumin 2.6 L Globulin 3.0 Albumin/Globulin Ratio 0.9 L 07/29/17 07/29/17 11:35 13:08 WBC 10.8 RBC 2.73 L Hgb 8.7 L Hct 25.7 L MCV 94.2 H MCH 31.8 H MCHC 33.8 RDW 17.5 H Plt Count 116 L MPV 8.4 Neut % (Auto) 73.4 Lymph % (Auto) 10.1 L [place] % (Auto) 11.9 H Eos % (Auto) 4.2 H Baso % (Auto) 0.4 Neut # (Auto) 7.9 H Lymph # (Auto) 1.1 [place] # (Auto) 1.3 H Eos # (Auto) 0.4 Baso # (Auto) 0.0 Neutrophils % (Manual) Lymphocytes % (Manual) Monocytes % (Manual) Eosinophils % (Manual) Differential Comment Platelet Estimate Anisocytosis (manual) Ovalocytes Sodium Potassium Chloride Carbon Dioxide Anion Gap BUN Creatinine Est GFR ( Amer) Est GFR (Non-Af Amer) POC Glucose (mg/dL) 162 H Random Glucose Calcium Phosphorus Magnesium % Saturation Ferritin Total Bilirubin AST ALT Alkaline Phosphatase Total Protein Albumin Globulin Albumin/Globulin Ratio Fingerstick Blood Sugar Results: 162 Critical Care Progress Note - Nutrition Nutrition: Nutrition Category Date Time Status NPO Diet [DIET] Diets 07/31/17 Breakfast Active Assessment/Plan - Assessment and Plan (Free Text) Assessment: This is a 76 year old male with HTN, DM, Hypercholesterimia, CAD, CABG with 5 vessel disease, ESRD on peritoneal dialysis, with symptomatic bradycardia s/p pacemaker placed [address] Valencia, hypothyroidism, who presented to the ED on 07/28 for dysphagia and slurred speech, was diagnosed with Yu's Palsy. Patient is with persistent AMS 2/2 Metabolic Encephalopathy. Started on HD. Plan: Neuro: Intubated 2/2 Respiratory Failure PRVC 14/40/450/5 - Extubated 07/27/17 - NGT in place A: Metabolic Encephalopathy Neurology consulted - Dr. 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 - Started Keppra 250mg PO BID A: Right Yu's Palsy Neurology: Dr. Thompson - on board Imaging: - Head CT: 1. Confluent area of low attenuation within the right frontal subcortical white matter suggestive for chronic ischemic change. 2. Scattered areas of chronic microvascular ischemic change. 3. Prominent ventricles. 4. No evidence of acute intracranial hemorrhage. If there is persistent concern for acute ischemic change, correlation with MRI is recommended. - Head/ Neck CTA: There is nonvisualization origin left vertebral artery. Left vertebral artery reconstitutes at approximately the lower C5 level and is seen on as a patent vessel to the level of the C2 segment where the vertebral artery is no longer visualized and appears to be occluded. Findings could represent sequela of atherosclerotic disease or dissection. Clinical correlation recommended. Right vertebral artery is patent throughout. The common carotid arteries, carotid bifurcations and internal carotid artery is widely patent. There is a calcified atherosclerotic plaque both cavernous carotid segments. The the at anterior middle and posterior cerebral arteries are patent. No evidence of large aneurysm nor vascular malformation. - Not able to have MRI - due to recent PPM placement - 07/[address]: No intracranial mass, hemorrhage or evidence of acute infarct. Right frontal encephalomalacia, possibly old MCA territory infarct. Small nonspecific right mastoid effusion. Chronic white matter ischemic change. A: Hx CVA -ASA 81mg, Plavix 75mg (held), Crestor 10mg Cardio: A: HTN, CAD, CABG with 5 vessel disease, with symptomatic bradycardia s/p pacemaker placed [address] Valencia - Recent ECHO performed in Dr. Elizabeth's office as outpatient - ASA 81mg, Plavix 75mg, Coreg 12.5mg PO BID, Cozaar 25mg, Crestor 10mg Pulm: A: Acute Respiratory Failure - Extubated 07/27/17 Endo: A: Hypothyroidism - Resumed Synthroid 50 mcg A: DM - Accuchecks - ISS - medium - A1C 8.4 GI: A: Cirrhosis, etiology unclear Dr. Irvin consulted Renal: A: ESRD previously on peritoneal dialysis Nephrology consulted - Dr. Benson - right shiley catheter placed - Procrit Heme/Onc A: Anemia of Chronic Disease - Baseline hemoglobin 9s - Continue with Procrit - S/P transfused 1 unit PRBC 07/23 - Ferrlecit daily x 1 week - Stool occult- negative ID: A: Sepsis 2/2 Otitis Media with right mastoid effusion? Mastoiditis? r/o Meningitis ID consulted - Dr. Gabe Villegas - Workup up ordered - negative to date - Started on Merrem 500 Q12 (07/18), Vanco 500mg on dialysis(07/19), and Acyclovir 400mg Q12 (07/22) Prophylaxis: - Pepcid 2/2 to steroids - Heparin during HD - Diet: NGT in place; failed swallow eval x 2 - PT/OT DW with Tameka Cherry, PGY-1 <Angel Acevedo - Last Filed: 07/29/17 17:58> CCU Objective - Vital Signs / Intake & Output Vital Signs (Last 4 hours): Vital Signs Temp Pulse Resp BP Pulse Ox 07/29/17 16:00 98.6 F 100 07/29/17 15:20 77 24 159/57 H 97 07/29/17 14:20 75 23 145/54 L 100 Intake and Output (Last 8hrs): Intake & Output 07/29/17 07/29/17 07/29/17 06:59 14:59 22:59 Intake Total 340 320 20 Output Total 50 1 Balance 290 319 20 Weight 169 lb 12.095 oz Intake: Intake, IV Amount 100 200 Left Antecubital 100 200 Tube Feeding 240 120 20 Output: Urine 0 0 Urine, Voided 0 0 Stool 50 0 Urine/Stool Mix 1 Other: # Bowel Movements 1 1 - Medications Active Medications: Active Medications Generic Name Dose Route Start Last Admin Trade Name Freq PRN Reason Stop Dose Admin Acetaminophen 650 mg 07/24/17 07:42 07/24/17 07:48 Tylenol 325mg Tab PO 650 mg Q6 PRN Administration Fever >100.4 F Albuterol/Ipratropium 3 ml 07/13/17 14:00 07/29/17 13:36 Duoneb 3 Mg/0.5 Mg (3 Ml) Ud INH 3 ml RQ6 JAYLA Administration Artificial Tears 0 ml 07/13/17 22:00 07/26/17 17:34 Artificial Tears OD 1 drop Q3H PRN Administration Dry eyes Aspirin 81 mg 07/15/17 10:00 07/28/17 17:46 Aspirin Chewable PO Not Given DAILY [facility] Calcium Acetate 667 mg 07/13/17 12:00 07/29/17 17:04 Phoslo PO 667 mg TIDCC JAYLA Administration Carvedilol 6.25 mg 07/23/17 18:00 07/29/17 17:04 Coreg PO 6.25 mg BID JAYLA Administration Clopidogrel Bisulfate 75 mg 07/15/17 10:00 07/29/17 09:14 Plavix PO 75 mg DAILY JAYLA Administration Epoetin Kumar 10,000 unit 07/16/17 09:00 07/28/17 12:47 Procrit SC 10,000 unit MWF JAYLA Administration Famotidine 20 mg 07/25/17 12:15 07/29/17 09:09 Pepcid PO 20 mg DAILY JAYLA Administration Ferric Sodium Gluconate Complex 125 mg 07/26/17 10:00 07/29/17 09:13 Ferrlecit IVPB 08/03/17 10:01 125 mg DAILY JAYLA Administration Meropenem 500 mg/ Sodium 100 mls @ 100 mls/hr 07/18/17 23:30 07/28/17 11:48 Chloride IVPB Not Given Q12H JAYLA Protocol Acyclovir 200 mg/ Sodium 100 mls @ 100 mls/hr 07/22/17 13:00 07/29/17 12:00 Chloride IV 100 mls/hr Q12H JAYLA Administration Protocol Vancomycin/Sodium Chloride 1 gm in 200 mls @ 166.7 mls/hr 07/28/17 09:00 18:40 Vancomycin 1 Gm/Ns 200 Ml IVPB 08/02/17 09:01 166.7 mls/hr MWF JAYLA Administration Protocol Insulin Human Regular 0 unit 07/15/17 07:32 07/29/17 11:54 Novolin R SC 2 unit Q6 JAYLA Administration Protocol Levetiracetam 250 mg 07/24/17 18:30 07/29/17 17:04 Keppra PO 250 mg BID JAYLA Administration Levothyroxine Sodium 50 mcg 07/14/17 06:30 07/29/17 06:38 Synthroid PO 50 mcg DAILY@0630 JAYLA Administration Losartan Potassium 25 mg 07/25/17 15:00 07/29/17 09:10 Cozaar PO 25 mg DAILY JAYLA Administration Modafinil 50 mg 07/24/17 10:00 07/29/17 09:15 Provigil PO 50 mg DAILY JAYLA Administration Nystatin 1 ea 07/29/17 14:00 07/29/17 17:16 Mycostatin Cream TOP 1 applic TID JAYLA Administration Saccharomyces Boulardii 250 mg 07/28/17 22:00 07/29/17 09:11 Florastor PO 250 mg Q12 JAYLA Administration Vitamin A 1 ea 07/19/17 18:00 07/29/17 17:04 Vitamin A & D Oint Ud Foilpak TOP 1 ea BID JAYLA Administration - Patient Studies Lab Studies: Lab Studies 07/29/17 07/29/17 07/29/17 Range/Units 17:33 13:08 11:35 WBC 10.8 (4.8-10.8) K/uL RBC 2.73 L (4.40-5.90) Mil/uL Hgb 8.7 L (12.0-18.0) g/dL Hct 25.7 L (35.0-51.0) % MCV 94.2 H (80.0-94.0) fL MCH 31.8 H (27.0-31.0) pg MCHC 33.8 (33.0-37.0) g/dL RDW 17.5 H (11.5-14.5) % Plt Count 116 L (130-400) K/uL MPV 8.4 (7.2-11.7) fL Neut % (Auto) 73.4 (50.0-75.0) % Lymph % (Auto) 10.1 L (20.0-40.0) % [place] % (Auto) 11.9 H (0.0-10.0) % Eos % (Auto) 4.2 H (0.0-4.0) % Baso % (Auto) 0.4 (0.0-2.0) % Neut # (Auto) 7.9 H (1.8-7.0) K/uL Lymph # (Auto) 1.1 (1.0-4.3) K/uL [place] # (Auto) 1.3 H (0.0-0.8) K/uL Eos # (Auto) 0.4 (0.0-0.7) K/uL Baso # (Auto) 0.0 (0.0-0.2) K/uL Neutrophils % (Manual) (50-75) % Lymphocytes % (Manual) (20-40) % Monocytes % (Manual) (0-10) % Eosinophils % (Manual) (0-4) % Differential Comment Platelet Estimate (NORMAL) Anisocytosis (manual) Ovalocytes Sodium (132-148) mmol/L Potassium (3.6-5.2) mmol/L Chloride (98-107) mmol/L Carbon Dioxide (22-30) mmol/L Anion Gap (10-20) BUN (9-20) mg/dL Creatinine (0.8-1.5) mg/dL Est GFR ( Amer) Est GFR (Non-Af Amer) POC Glucose (mg/dL) 137 H 162 H (65-110) mg/dL Random Glucose (75-110) mg/dL Calcium (8.6-10.4) mg/dl Phosphorus (2.5-4.5) mg/dL Magnesium (1.6-2.3) mg/dL % Saturation (20-55) Ferritin ng/mL Total Bilirubin (0.2-1.3) mg/dL AST (17-59) U/L ALT (21-72) U/L Alkaline Phosphatase (38-126) U/L Total Protein (6.3-8.3) g/dL Albumin (3.5-5.0) g/dL Globulin (2.2-3.9) gm/dL Albumin/Globulin Ratio (1.0-2.1) 07/29/17 07/29/17 07/29/17 Range/Units 06:24 06:14 06:14 WBC 11.5 H (4.8-10.8) K/uL RBC 2.77 L (4.40-5.90) Mil/uL Hgb 8.7 L (12.0-18.0) g/dL Hct 26.5 L (35.0-51.0) % MCV 95.6 H (80.0-94.0) fL MCH 31.4 H (27.0-31.0) pg MCHC 32.9 L (33.0-37.0) g/dL RDW 17.5 H (11.5-14.5) % Plt Count 98 L D (130-400) K/uL MPV 9.2 (7.2-11.7) fL Neut % (Auto) 76.8 H (50.0-75.0) % Lymph % (Auto) 9.3 L (20.0-40.0) % [place] % (Auto) 10.1 H (0.0-10.0) % Eos % (Auto) 3.4 (0.0-4.0) % Baso % (Auto) 0.4 (0.0-2.0) % Neut # (Auto) 8.8 H (1.8-7.0) K/uL Lymph # (Auto) 1.1 (1.0-4.3) K/uL [place] # (Auto) 1.2 H (0.0-0.8) K/uL Eos # (Auto) 0.4 (0.0-0.7) K/uL Baso # (Auto) 0.0 (0.0-0.2) K/uL Neutrophils % (Manual) 79 H (50-75) % Lymphocytes % (Manual) 8 L (20-40) % Monocytes % (Manual) 9 (0-10) % Eosinophils % (Manual) 4 (0-4) % Differential Comment Platelet Estimate Decreased L (NORMAL) Anisocytosis (manual) Slight Ovalocytes Slight Sodium 132 (132-148) mmol/L Potassium 4.3 (3.6-5.2) mmol/L Chloride 95 L (98-107) mmol/L Carbon Dioxide 29 (22-30) mmol/L Anion Gap 13 (10-20) BUN 38 H (9-20) mg/dL Creatinine 4.2 H (0.8-1.5) mg/dL Est GFR ( Amer) 17 Est GFR (Non-Af Amer) 14 POC Glucose (mg/dL) (65-110) mg/dL Random Glucose 189 H (75-110) mg/dL Calcium 7.7 L (8.6-10.4) mg/dl Phosphorus 4.1 (2.5-4.5) mg/dL Magnesium 2.2 (1.6-2.3) mg/dL % Saturation 17 L (20-55) Ferritin 1130.0 ng/mL Total Bilirubin 0.9 (0.2-1.3) mg/dL AST 57 (17-59) U/L ALT 41 (21-72) U/L Alkaline Phosphatase 115 (38-126) U/L Total Protein 5.6 L (6.3-8.3) g/dL Albumin 2.6 L (3.5-5.0) g/dL Globulin 3.0 (2.2-3.9) gm/dL Albumin/Globulin Ratio 0.9 L (1.0-2.1) 07/29/17 07/28/17 07/28/17 Range/Units 05:59 23:20 17:50 WBC (4.8-10.8) K/uL RBC (4.40-5.90) Mil/uL Hgb (12.0-18.0) g/dL Hct (35.0-51.0) % MCV (80.0-94.0) fL MCH (27.0-31.0) pg MCHC (33.0-37.0) g/dL RDW (11.5-14.5) % Plt Count (130-400) K/uL MPV (7.2-11.7) fL Neut % (Auto) (50.0-75.0) % Lymph % (Auto) (20.0-40.0) % [place] % (Auto) (0.0-10.0) % Eos % (Auto) (0.0-4.0) % Baso % (Auto) (0.0-2.0) % Neut # (Auto) (1.8-7.0) K/uL Lymph # (Auto) (1.0-4.3) K/uL [place] # (Auto) (0.0-0.8) K/uL Eos # (Auto) (0.0-0.7) K/uL Baso # (Auto) (0.0-0.2) K/uL Neutrophils % (Manual) (50-75) % Lymphocytes % (Manual) (20-40) % Monocytes % (Manual) (0-10) % Eosinophils % (Manual) (0-4) % Differential Comment Platelet Estimate (NORMAL) Anisocytosis (manual) Ovalocytes Sodium (132-148) mmol/L Potassium (3.6-5.2) mmol/L Chloride (98-107) mmol/L Carbon Dioxide (22-30) mmol/L Anion Gap (10-20) BUN (9-20) mg/dL Creatinine (0.8-1.5) mg/dL Est GFR ( Amer) Est GFR (Non-Af Amer) POC Glucose (mg/dL) 177 H 156 H 133 H (65-110) mg/dL Random Glucose (75-110) mg/dL Calcium (8.6-10.4) mg/dl Phosphorus (2.5-4.5) mg/dL Magnesium (1.6-2.3) mg/dL % Saturation (20-55) Ferritin ng/mL Total Bilirubin (0.2-1.3) mg/dL AST (17-59) U/L ALT (21-72) U/L Alkaline Phosphatase (38-126) U/L Total Protein (6.3-8.3) g/dL Albumin (3.5-5.0) g/dL Globulin (2.2-3.9) gm/dL Albumin/Globulin Ratio (1.0-2.1) Laboratory Results - last 24 hr 07/28/17 07/28/17 07/29/17 17:50 23:20 05:59 WBC RBC Hgb Hct MCV MCH MCHC RDW Plt Count MPV Neut % (Auto) Lymph % (Auto) [place] % (Auto) Eos % (Auto) Baso % (Auto) Neut # (Auto) Lymph # (Auto) [place] # (Auto) Eos # (Auto) Baso # (Auto) Neutrophils % (Manual) Lymphocytes % (Manual) Monocytes % (Manual) Eosinophils % (Manual) Differential Comment Platelet Estimate Anisocytosis (manual) Ovalocytes Sodium Potassium Chloride Carbon Dioxide Anion Gap BUN Creatinine Est GFR ( Amer) Est GFR (Non-Af Amer) POC Glucose (mg/dL) 133 H 156 H 177 H Random Glucose Calcium Phosphorus Magnesium % Saturation Ferritin Total Bilirubin AST ALT Alkaline Phosphatase Total Protein Albumin Globulin Albumin/Globulin Ratio 07/29/17 07/29/17 07/29/17 06:14 06:14 06:24 WBC 11.5 H RBC 2.77 L Hgb 8.7 L Hct 26.5 L MCV 95.6 H MCH 31.4 H MCHC 32.9 L RDW 17.5 H Plt Count 98 L D MPV 9.2 Neut % (Auto) 76.8 H Lymph % (Auto) 9.3 L [place] % (Auto) 10.1 H Eos % (Auto) 3.4 Baso % (Auto) 0.4 Neut # (Auto) 8.8 H Lymph # (Auto) 1.1 [place] # (Auto) 1.2 H Eos # (Auto) 0.4 Baso # (Auto) 0.0 Neutrophils % (Manual) 79 H Lymphocytes % (Manual) 8 L Monocytes % (Manual) 9 Eosinophils % (Manual) 4 Differential Comment Platelet Estimate Decreased L Anisocytosis (manual) Slight Ovalocytes Slight Sodium 132 Potassium 4.3 Chloride 95 L Carbon Dioxide 29 Anion Gap 13 BUN 38 H Creatinine 4.2 H Est GFR ( Amer) 17 Est GFR (Non-Af Amer) 14 POC Glucose (mg/dL) Random Glucose 189 H Calcium 7.7 L Phosphorus 4.1 Magnesium 2.2 % Saturation 17 L Ferritin 1130.0 Total Bilirubin 0.9 AST 57 ALT 41 Alkaline Phosphatase 115 Total Protein 5.6 L Albumin 2.6 L Globulin 3.0 Albumin/Globulin Ratio 0.9 L 07/29/17 07/29/17 07/29/17 11:35 13:08 17:33 WBC 10.8 RBC 2.73 L Hgb 8.7 L Hct 25.7 L MCV 94.2 H MCH 31.8 H MCHC 33.8 RDW 17.5 H Plt Count 116 L MPV 8.4 Neut % (Auto) 73.4 Lymph % (Auto) 10.1 L [place] % (Auto) 11.9 H Eos % (Auto) 4.2 H Baso % (Auto) 0.4 Neut # (Auto) 7.9 H Lymph # (Auto) 1.1 [place] # (Auto) 1.3 H Eos # (Auto) 0.4 Baso # (Auto) 0.0 Neutrophils % (Manual) Lymphocytes % (Manual) Monocytes % (Manual) Eosinophils % (Manual) Differential Comment Platelet Estimate Anisocytosis (manual) Ovalocytes Sodium Potassium Chloride Carbon Dioxide Anion Gap BUN Creatinine Est GFR ( Amer) Est GFR (Non-Af Amer) POC Glucose (mg/dL) 162 H 137 H Random Glucose Calcium Phosphorus Magnesium % Saturation Ferritin Total Bilirubin AST ALT Alkaline Phosphatase Total Protein Albumin Globulin Albumin/Globulin Ratio Critical Care Progress Note - Nutrition Nutrition: Nutrition Category Date Time Status NPO Diet [DIET] Diets 07/31/17 Breakfast Active Attending/Attestation - Attestation I have personally seen and examined this patient.: Yes I have fully participated in the care of the patient.: Yes I have reviewed all pertinent clinical information: Yes Notes (Text): 07/29/17 17:57 patient seen and examined in the intensive care unit. Patient extubated on 07/27 and in no respiratory distress continue antibiotics Physical therapy Continue NG tube feeding
--- NOTE | 2017-07-29 15:01 | CP.PCM.PN ---
Subjective - Date & Time of Evaluation Date of Evaluation: 07/29/17 Time of Evaluation: 15:01 - Subjective Subjective: afebrile, More alert, verbalizing. REMAINS EXTUBATED. NGT FEEDINGS. AT BEDSIDE LABS REVIEWED. WBC IMPROVING . SPUTUM N ADILSON. ALL CULTURES -VE TO DATE EEG ? RARE RT.TEMPORAL SHARP SPIKE-PRESENCE OF EPILEPSY -? POST ICTAL IN NATURE PLAN ; DC MERREM IN VIEW OF SEIZURES ON EEG.07/18/17- 07/29/17 ON IV VANCOMYCIN 1GM POST HD MWF. 07/17/17 - TO DC AFTER PLACEMENT OF AVF ON IV ACYCLOVIR 200 MG EVERY 12 HOURLY- 07/20/17-DAY 10 FOR 4 DAYS MORE Objective - Vital Signs/Intake and Output Vital Signs (last 24 hours): Temp Pulse Resp BP Pulse Ox 97.4 F L 75 23 145/54 L 100 07/29/17 12:00 07/29/17 14:20 07/29/17 14:20 07/29/17 14:20 07/29/17 14:20 Intake and Output: 07/29/17 07/29/17 06:59 18:59 Intake Total 460 320 Output Total 50 1 Balance 410 319 - Medications Medications: Current Medications Acetaminophen (Tylenol 325mg Tab) 650 mg PO Q6 PRN PRN Reason: Fever >100.4 F Last Admin: 07/24/17 07:48 Dose: 650 mg Albuterol/Ipratropium (Duoneb 3 Mg/0.5 Mg (3 Ml) Ud) 3 ml INH RQ6 [facility] Last Admin: 07/29/17 13:36 Dose: 3 ml Artificial Tears (Artificial Tears) 0 ml OD Q3H PRN PRN Reason: Dry eyes Last Admin: 07/26/17 17:34 Dose: 1 drop Aspirin (Aspirin Chewable) 81 mg PO DAILY [facility] Last Admin: 07/28/17 17:46 Dose: Not Given Calcium Acetate (Phoslo) 667 mg PO TIDCC [facility] Last Admin: 07/29/17 11:56 Dose: 667 mg Carvedilol (Coreg) 6.25 mg PO BID [facility] Last Admin: 07/29/17 09:10 Dose: 6.25 mg Clopidogrel Bisulfate (Plavix) 75 mg PO DAILY [facility] Last Admin: 07/29/17 09:14 Dose: 75 mg Epoetin Kumar (Procrit) 10,000 unit SC MWF [facility] Last Admin: 07/28/17 12:47 Dose: 10,000 unit Famotidine (Pepcid) 20 mg PO DAILY [facility] Last Admin: 07/29/17 09:09 Dose: 20 mg Ferric Sodium Gluconate Complex (Ferrlecit) 125 mg IVPB DAILY [facility] Stop: 08/03/17 10:01 Last Admin: 07/29/17 09:13 Dose: 125 mg Meropenem 500 mg/ Sodium (Chloride) 100 mls @ 100 mls/hr IVPB Q12H [facility] PRN Reason: Protocol Last Admin: 07/28/17 11:48 Dose: Not Given Acyclovir 200 mg/ Sodium (Chloride) 100 mls @ 100 mls/hr IV Q12H [facility] PRN Reason: Protocol Last Admin: 07/29/17 12:00 Dose: 100 mls/hr Vancomycin/Sodium Chloride (Vancomycin 1 Gm/Ns 200 Ml) 1 gm in 200 mls @ 166.7 mls/hr IVPB MWF [facility] PRN Reason: Protocol Stop: 08/02/17 09:01 Last Admin: 07/28/17 18:40 Dose: 166.7 mls/hr Insulin Human Regular (Novolin R) 0 unit SC Q6 [facility] PRN Reason: Protocol Last Admin: 07/29/17 11:54 Dose: 2 unit Levetiracetam (Keppra) 250 mg PO BID [facility] Last Admin: 07/29/17 09:11 Dose: 250 mg Levothyroxine Sodium (Synthroid) 50 mcg PO DAILY@0630 [facility] Last Admin: 07/29/17 06:38 Dose: 50 mcg Losartan Potassium (Cozaar) 25 mg PO DAILY [facility] Last Admin: 07/29/17 09:10 Dose: 25 mg Modafinil (Provigil) 50 mg PO DAILY [facility] Last Admin: 07/29/17 09:15 Dose: 50 mg Nystatin (Mycostatin Cream) 1 ea TOP TID [facility] Last Admin: 07/29/17 13:52 Dose: 1 applic Saccharomyces Boulardii (Florastor) 250 mg PO Q12 [facility] Last Admin: 07/29/17 09:11 Dose: 250 mg Vitamin A (Vitamin A & D Oint Ud Foilpak) 1 ea TOP BID [facility] Last Admin: 06/19/18 09:09 Dose: 1 ea - Labs Labs: 07/29/17 13:08 07/29/17 06:14 PT 11.2 SECONDS (9.7-12.2) 07/22/17 20:01 INR 1.0 07/22/17 20:01 APTT 35 SECONDS (21-34) H 07/22/17 20:01 - Constitutional Appears: No Acute Distress, Chronically Ill - Head Exam Head Exam: NORMAL INSPECTION - Eye Exam Eye Exam: PERRL - ENT Exam ENT Exam: Normal Oropharynx - Neck Exam Neck Exam: Normal Inspection - Respiratory Exam Respiratory Exam: Decreased Breath Sounds - Cardiovascular Exam Cardiovascular Exam: REGULAR RHYTHM, +S1, +S2 - GI/Abdominal Exam GI & Abdominal Exam: Soft, Normal Bowel Sounds - Extremities Exam Extremities Exam: Normal Capillary Refill, Pedal Edema. absent: Calf Tenderness - Neurological Exam Neurological Exam: Awake, CN II-XII Intact - Psychiatric Exam Psychiatric exam: Normal Affect - Skin Skin Exam: Normal Color, Warm Assessment and Plan (1) Toxic metabolic encephalopathy Assessment & Plan: EEG REPEAT--NOTED ? EPILEPTIC SPIKE DC MERREM IN VIEW OF SEIZURES ON EEG.07/18/17- 07/29/17 ON IV VANCOMYCIN 1GM POST HD MWF. 07/17/17 - TO DC AFTER PLACEMENT OF AVF ON IV ACYCLOVIR 200 MG EVERY 12 HOURLY- 07/20/17-DAY 10 FOR 4 DAYS MORE Status: Acute (2) Yu palsy Status: Acute (3) Type 2 diabetes mellitus with diabetic nephropathy Status: Acute (4) ESRD (end stage renal disease) Assessment & Plan: ON HD MWF. PATIENT FOR AV FISTULA PER RENAL. Status: Acute (5) Heart block AV complete Assessment & Plan: S/P PERMANENT PACEMAKER 3 WEEKS AGO. Status: Acute
--- NOTE | 2017-07-29 19:37 | CP.PCM.PN ---
Subjective - Date & Time of Evaluation Date of Evaluation: 07/29/17 Time of Evaluation: 19:34 - Subjective Subjective: Surgery Pt seen and examined. Pt is alert and oriented. Follows commands. Obtained consent from family for AVF creation on . Had HD yesterday. OOB. Resting Objective - Vital Signs/Intake and Output Vital Signs (last 24 hours): Temp Pulse Resp BP Pulse Ox 98.6 F 75 17 137/47 L 100 07/29/17 16:00 07/29/17 19:20 07/29/17 19:20 07/29/17 19:20 07/29/17 19:20 Intake and Output: 07/29/17 07/30/17 18:59 06:59 Intake Total 360 10 Output Total 1 Balance 359 10 - Medications Medications: Current Medications Acetaminophen (Tylenol 325mg Tab) 650 mg PO Q6 PRN PRN Reason: Fever >100.4 F Last Admin: 07/24/17 07:48 Dose: 650 mg Albuterol/Ipratropium (Duoneb 3 Mg/0.5 Mg (3 Ml) Ud) 3 ml INH RQ6 [facility] Last Admin: 07/29/17 13:36 Dose: 3 ml Artificial Tears (Artificial Tears) 0 ml OD Q3H PRN PRN Reason: Dry eyes Last Admin: 07/26/17 17:34 Dose: 1 drop Aspirin (Aspirin Chewable) 81 mg PO DAILY [facility] Last Admin: 07/28/17 17:46 Dose: Not Given Calcium Acetate (Phoslo) 667 mg PO TIDCC [facility] Last Admin: 07/29/17 17:04 Dose: 667 mg Carvedilol (Coreg) 6.25 mg PO BID [facility] Last Admin: 07/29/17 17:04 Dose: 6.25 mg Clopidogrel Bisulfate (Plavix) 75 mg PO DAILY [facility] Last Admin: 07/29/17 09:14 Dose: 75 mg Epoetin Kumar (Procrit) 10,000 unit SC MWF [facility] Last Admin: 07/28/17 12:47 Dose: 10,000 unit Famotidine (Pepcid) 20 mg PO DAILY [facility] Last Admin: 07/29/17 09:09 Dose: 20 mg Ferric Sodium Gluconate Complex (Ferrlecit) 125 mg IVPB DAILY [facility] Stop: 08/03/17 10:01 Last Admin: 07/29/17 09:13 Dose: 125 mg Meropenem 500 mg/ Sodium (Chloride) 100 mls @ 100 mls/hr IVPB Q12H [facility] PRN Reason: Protocol Last Admin: 07/28/17 11:48 Dose: Not Given Acyclovir 200 mg/ Sodium (Chloride) 100 mls @ 100 mls/hr IV Q12H [facility] PRN Reason: Protocol Last Admin: 07/29/17 12:00 Dose: 100 mls/hr Vancomycin/Sodium Chloride (Vancomycin 1 Gm/Ns 200 Ml) 1 gm in 200 mls @ 166.7 mls/hr IVPB MWF [facility] PRN Reason: Protocol Stop: 08/02/17 09:01 Last Admin: 07/28/17 18:40 Dose: 166.7 mls/hr Insulin Human Regular (Novolin R) 0 unit SC Q6 [facility] PRN Reason: Protocol Last Admin: 07/29/17 18:00 Dose: Not Given Levetiracetam (Keppra) 250 mg PO BID [facility] Last Admin: 07/29/17 17:04 Dose: 250 mg Levothyroxine Sodium (Synthroid) 50 mcg PO DAILY@0630 [facility] Last Admin: 07/29/17 06:38 Dose: 50 mcg Losartan Potassium (Cozaar) 25 mg PO DAILY [facility] Last Admin: 07/29/17 09:10 Dose: 25 mg Modafinil (Provigil) 50 mg PO DAILY [facility] Last Admin: 07/29/17 09:15 Dose: 50 mg Nystatin (Mycostatin Cream) 1 ea TOP TID [facility] Last Admin: 07/29/17 17:16 Dose: 1 applic Saccharomyces Boulardii (Florastor) 250 mg PO Q12 [facility] Last Admin: 07/29/17 09:11 Dose: 250 mg Vitamin A (Vitamin A & D Oint Ud Foilpak) 1 ea TOP BID [facility] Last Admin: 07/29/17 17:04 Dose: 1 ea - Labs Labs: 07/29/17 13:08 07/29/17 06:14 PT 11.2 SECONDS (9.7-12.2) 07/22/17 20:01 INR 1.0 07/22/17 20:01 APTT 35 SECONDS (21-34) H 07/22/17 20:01 - Constitutional Appears: Non-toxic - Head Exam Head Exam: ATRAUMATIC, NORMAL INSPECTION, NORMOCEPHALIC - Eye Exam Eye Exam: EOMI, Normal appearance, PERRL Pupil Exam: NORMAL ACCOMODATION, PERRL - ENT Exam ENT Exam: Mucous Membranes Moist, Normal Exam - Neck Exam Neck Exam: Full ROM, Normal Inspection. absent: Lymphadenopathy - Respiratory Exam Respiratory Exam: Clear to Ausculation Bilateral, NORMAL BREATHING PATTERN - Cardiovascular Exam Cardiovascular Exam: REGULAR RHYTHM, +S1, +S2. absent: Murmur - GI/Abdominal Exam GI & Abdominal Exam: Soft, Normal Bowel Sounds. absent: Distended, Tenderness Additional comments: PD cath in place - Extremities Exam Extremities Exam: Full ROM, Normal Inspection - Back Exam Back Exam: NORMAL INSPECTION - Neurological Exam Neurological Exam: Alert, Awake, CN II-XII Intact, Oriented x3 - Psychiatric Exam Psychiatric exam: Normal Affect, Normal Mood - Skin Skin Exam: Dry, Intact, Normal Color, Warm Assessment and Plan - Assessment and Plan (Free Text) Assessment: ESRD with malfunctioning PD catheter Vein map shows b/l basilic vein adequate size -Will plan for AVF creation , permacath and removal of PD cath on -Cont HD via [facility] -NPO after midnight on -L arm precaution DW Dr. Davis
--- NOTE | 2017-07-29 22:33 | CP.PCM.PN ---
Subjective - Date & Time of Evaluation Date of Evaluation: 07/29/17 Time of Evaluation: 22:32 - Subjective Subjective: Patient now more awake. He is following commands. Moving all 4 extremities. He still not able to eat well. Receiving nasal gastric feeding. On examination: Vital signs stable. Chest good air entry bilaterally Regular heart sound. Nontender abdomen. Pedal edema plus Labs reviewed Nonspecific. X-ray is slight worsening congestion noted Assessment and recommendation: 77-year-old male with history of end-stage renal disease on dialysis now receiving hemodialysis. Pneumonia. Respiratory insufficiency Metabolic encephalopathy. Slowly improving. Patient's meropenem is discontinued because of the suspected seizure activity on Keppra also. Will discontinue modafinil tomorrow. Physical therapy. For hemodialysis tomorrow. Possibly patient will be receiving AV fistula the following day. Objective - Vital Signs/Intake and Output Vital Signs (last 24 hours): Temp Pulse Resp BP Pulse Ox 98.4 F 74 18 135/59 L 100 07/29/17 20:00 07/29/17 22:19 07/29/17 22:19 07/29/17 22:19 07/29/17 22:19 Intake and Output: 07/29/17 07/30/17 18:59 06:59 Intake Total 360 60 Output Total 1 0 Balance 359 60 - Medications Medications: Current Medications Acetaminophen (Tylenol 325mg Tab) 650 mg PO Q6 PRN PRN Reason: Fever >100.4 F Last Admin: 07/24/17 07:48 Dose: 650 mg Albuterol/Ipratropium (Duoneb 3 Mg/0.5 Mg (3 Ml) Ud) 3 ml INH RQ6 [facility] Last Admin: 07/29/17 19:53 Dose: 3 ml Artificial Tears (Artificial Tears) 0 ml OD Q3H PRN PRN Reason: Dry eyes Last Admin: 07/26/17 17:34 Dose: 1 drop Aspirin (Aspirin Chewable) 81 mg PO DAILY [facility] Last Admin: 07/28/17 17:46 Dose: Not Given Calcium Acetate (Phoslo) 667 mg PO TIDCC [facility] Last Admin: 07/29/17 17:04 Dose: 667 mg Carvedilol (Coreg) 6.25 mg PO BID [facility] Last Admin: 07/29/17 17:04 Dose: 6.25 mg Clopidogrel Bisulfate (Plavix) 75 mg PO DAILY [facility] Last Admin: 07/29/17 09:14 Dose: 75 mg Epoetin Kumar (Procrit) 10,000 unit SC MWF [facility] Last Admin: 07/28/17 12:47 Dose: 10,000 unit Famotidine (Pepcid) 20 mg PO DAILY [facility] Last Admin: 07/29/17 09:09 Dose: 20 mg Ferric Sodium Gluconate Complex (Ferrlecit) 125 mg IVPB DAILY [facility] Stop: 08/03/17 10:01 Last Admin: 07/29/17 09:13 Dose: 125 mg Meropenem 500 mg/ Sodium (Chloride) 100 mls @ 100 mls/hr IVPB Q12H [facility] PRN Reason: Protocol Last Admin: 07/28/17 11:48 Dose: Not Given Acyclovir 200 mg/ Sodium (Chloride) 100 mls @ 100 mls/hr IV Q12H [facility] PRN Reason: Protocol Last Admin: 07/29/17 12:00 Dose: 100 mls/hr Vancomycin/Sodium Chloride (Vancomycin 1 Gm/Ns 200 Ml) 1 gm in 200 mls @ 166.7 mls/hr IVPB [facility] PRN Reason: Protocol Stop: 08/02/17 09:01 Last Admin: 07/28/17 18:40 Dose: 166.7 mls/hr Insulin Human Regular (Novolin R) 0 unit SC Q6 [facility] PRN Reason: Protocol Last Admin: 07/29/17 18:00 Dose: Not Given Levetiracetam (Keppra) 250 mg PO BID [facility] Last Admin: 07/29/17 17:04 Dose: 250 mg Levothyroxine Sodium (Synthroid) 50 mcg PO DAILY@0630 [facility] Last Admin: 07/29/17 06:38 Dose: 50 mcg Losartan Potassium (Cozaar) 25 mg PO DAILY [facility] Last Admin: 07/29/17 09:10 Dose: 25 mg Modafinil (Provigil) 50 mg PO DAILY [facility] Last Admin: 07/29/17 09:15 Dose: 50 mg Nystatin (Mycostatin Cream) 1 ea TOP TID [facility] Last Admin: 07/29/17 17:16 Dose: 1 applic Saccharomyces Boulardii (Florastor) 250 mg PO Q12 [facility] Last Admin: 07/29/17 21:57 Dose: 250 mg Vitamin A (Vitamin A & D Oint Ud Foilpak) 1 ea TOP BID [facility] Last Admin: 07/29/17 17:04 Dose: 1 ea - Labs Labs: 07/29/17 13:08 07/29/17 06:14 PT 11.2 SECONDS (9.7-12.2) 07/22/17 20:01 INR 1.0 07/22/17 20:01 APTT 35 SECONDS (21-34) H 07/22/17 20:01
[2017-07-29] MEDS: Meropenem 500 MG in Sodium Chloride 0.9% 100 ML IVPB SCH (22:41)
[2017-07-30] MEDS: Albuterol-Ipratrop 3 mg / 0.5 (3 ml) UD INH SCH ×4 (02:19→20:06)
[2017-07-30] MEDS: (Novolin R) Insulin Human Regular 100 units/ml vial SC SCH ×3 (05:57→18:00)
[2017-07-30 06:10] LABS: BASO # 0.1 K/uL (0.0-0.2); BASO % 0.5 % (0.0-2.0); EOS # 0.4 K/uL (0.0-0.7); EOS % 3.9 % (0.0-4.0); LYMPH % 9.8 % (20.0-40.0); MEAN CORPUSCULAR HEMOGLOBIN 32.2 pg (27.0-31.0); MEAN CORPUSCULAR HGB CONC 33.9 g/dL (33.0-37.0); MEAN PLATELET VOLUME 8.6 fL (7.2-11.7); MONO # 1.1 K/uL (0.0-0.8); MONO % 10.6 % (0.0-10.0); NEUT # 7.8 K/uL (1.8-7.0); NEUT % 75.2 % (50.0-75.0); NRBC % 0.1 % (0.0-2.0); PLATELET COUNT 120 K/uL (130-400); RED CELL DISTRIBUTION WIDTH 18.1 % (11.5-14.5); WHITE BLOOD COUNT 10.3 K/uL (4.8-10.8)
[2017-07-30] MEDS: Levothyroxine 50 MCG TAB PO SCH (06:11)
[2017-07-30 06:31] LABS: ALB/GLOB RATIO 0.8 (1.0-2.1); ALBUMIN 2.7 g/dL (3.5-5.0); CALCIUM 8.5 mg/dl (8.6-10.4)
[2017-07-30 07:51] LABS: ANISOCYTOSIS SLIGHT; BANDS 1 % (0-2); EOSINOPHIL 6 % (0-4); HYPOCHROMIC SLIGHT; LYMPHOCYTE 7 % (20-40); MICROCYTOSIS SLIGHT; MONOCYTE 11 % (0-10); NEUTROPHIL 75 % (50-75); PLATELET ESTIMATE SLIGHTLY DECREASED (NORMAL); POIKILOCYTOSIS SLIGHT; TOTAL CELLS COUNTED 100
--- NOTE | 2017-07-30 09:24 | CT ---
PROCEDURE: CT HEAD WITHOUT CONTRAST. HISTORY: Stroke COMPARISON: Comparison made with CT scan brain 07/25/2017. TECHNIQUE: Axial computed tomography images were obtained through the head/brain without intravenous contrast. Radiation dose: Total exam DLP = 1498.56 mGy-cm. This CT exam was performed using one or more of the following dose reduction techniques: Automated exposure control, adjustment of the mA and/or kV according to patient size, and/or use of iterative reconstruction technique. FINDINGS: HEMORRHAGE: No acute parenchymal, subarachnoid nor extra-axial hemorrhage. BRAIN: No. Re- demonstrated is a chronic appearing right the pleural cortical/subcortical infarct with mild to moderate/confluent chronic periventricular white matter ischemic changes with a few deep and subcortical white matter both cerebral hemispheres. Note that the possibility of a small hyperacute infarct cannot be excluded. . No obvious parenchymal nor extra-axial mass or collection seen on this noncontrast study. Moderate generalized volume loss. Vascular calcifications both carotid siphons and vertebral arteries again noted. VENTRICLES: No obstructive hydrocephalus. CALVARIUM: There are no acute calvarial fractures. PARANASAL SINUSES: Unremarkable as visualized. No significant inflammatory changes. MASTOID AIR CELLS: Unremarkable as visualized. No inflammatory changes. OTHER FINDINGS: Changes of bilateral cataract surgery again IMPRESSION: No acute intracranial hemorrhage. Moderate chronic white matter ischemic changes with chronic right superior frontal lobe infarct. Moderate generalized volume loss.
--- NOTE | 2017-07-30 09:38 | RAD ---
HISTORY: CHF COMPARISON: No prior. FINDINGS: In situ NGT, tip of which overlies left upper quadrant of the abdomen. No change right subclavian central line with tip in the SVC. LUNGS: Low lung volumes with crowded bronchovascular markings and bibasilar atelectasis and/or infiltrates. Small bilateral effusions. Central pulmonary vasculature remains slightly congested in appearance PLEURA: No significant pleural effusion identified, no pneumothorax apparent. CARDIOVASCULAR: Heart appears mildly enlarged. No change sternotomy wires or bipolar pacemaker OSSEOUS STRUCTURES: No significant abnormalities. VISUALIZED UPPER ABDOMEN: Normal. OTHER FINDINGS: None. IMPRESSION: Low lung volumes with crowded bronchovascular markings and bibasilar atelectasis and/or infiltrates. Small bilateral effusions. Central pulmonary vasculature remains slightly congested in appearance
[2017-07-30] MEDS: Saccharomyces Boulardi 250 mg Cap PO SCH ×2 (09:54→21:05)
[2017-07-30] MEDS: Ferric Sodium Gluconat Complex 62.5 mg/5 ml Vial IVPB SCH (09:54)
[2017-07-30] MEDS: Vitamins A & D Oint UD Foilpak TOP SCH ×2 (09:54→18:23)
[2017-07-30] MEDS: Nystatin 100,000 Units/gm Cream(15 gm) TOP SCH ×3 (09:55→18:23)
[2017-07-30] MEDS ORDERED: Bacitracin 500 Units/gm Oint Foilpak UD TOP ONE ×2 (10:14→10:30)
--- NOTE | 2017-07-30 11:18 | CP.PCM.PN ---
Subjective - Date & Time of Evaluation Date of Evaluation: 07/30/17 Time of Evaluation: 11:14 - Subjective Subjective: Vascular Surgery Progress Note for Dr. Davis This 77M was seen and examined this AM at bedside no acute events overnight. Patient is more alert, does not endorse pain. Still appears confused. Objective - Vital Signs/Intake and Output Vital Signs (last 24 hours): Temp Pulse Resp BP Pulse Ox 98.2 F 84 21 163/72 H 99 07/30/17 08:00 07/30/17 10:00 07/30/17 10:00 07/30/17 09:19 07/30/17 10:00 Intake and Output: 07/30/17 07/30/17 06:59 18:59 Intake Total 460 420 Output Total 0 Balance 460 420 - Medications Medications: Current Medications Acetaminophen (Tylenol 325mg Tab) 650 mg PO Q6 PRN PRN Reason: Fever >100.4 F Last Admin: 07/24/17 07:48 Dose: 650 mg Albuterol/Ipratropium (Duoneb 3 Mg/0.5 Mg (3 Ml) Ud) 3 ml INH RQ6 [facility] Last Admin: 07/30/17 07:26 Dose: 3 ml Artificial Tears (Artificial Tears) 0 ml OD Q3H PRN PRN Reason: Dry eyes Last Admin: 07/26/17 17:34 Dose: 1 drop Aspirin (Aspirin Chewable) 81 mg PO DAILY [facility] Last Admin: 07/28/17 17:46 Dose: Not Given Calcium Acetate (Phoslo) 667 mg PO TIDCC [facility] Last Admin: 07/30/17 08:02 Dose: 667 mg Carvedilol (Coreg) 6.25 mg PO BID [facility] Last Admin: 07/30/17 09:54 Dose: 6.25 mg Clopidogrel Bisulfate (Plavix) 75 mg PO DAILY [facility] Last Admin: 07/29/17 09:14 Dose: 75 mg Epoetin Kumar (Procrit) 10,000 unit SC MWF [facility] Last Admin: 07/28/17 12:47 Dose: 10,000 unit Famotidine (Pepcid) 20 mg PO DAILY [facility] Last Admin: 07/30/17 09:54 Dose: 20 mg Ferric Sodium Gluconate Complex (Ferrlecit) 125 mg IVPB DAILY [facility] Stop: 08/03/17 10:01 Last Admin: 07/30/17 09:54 Dose: 125 mg Acyclovir 200 mg/ Sodium (Chloride) 100 mls @ 100 mls/hr IV Q12H [facility] PRN Reason: Protocol Last Admin: 07/30/17 00:10 Dose: 100 mls/hr Vancomycin/Sodium Chloride (Vancomycin 1 Gm/Ns 200 Ml) 1 gm in 200 mls @ 166.7 mls/hr IVPB MWF [facility] PRN Reason: Protocol Stop: 08/02/17 09:01 Last Admin: 07/28/17 18:40 Dose: 166.7 mls/hr Insulin Human Regular (Novolin R) 0 unit SC Q6 [facility] PRN Reason: Protocol Last Admin: 07/30/17 05:57 Dose: Not Given Levetiracetam (Keppra) 250 mg PO BID [facility] Last Admin: 07/30/17 09:54 Dose: 250 mg Levothyroxine Sodium (Synthroid) 50 mcg PO DAILY@0630 [facility] Last Admin: 07/30/17 06:11 Dose: 50 mcg Losartan Potassium (Cozaar) 25 mg PO DAILY [facility] Last Admin: 07/30/17 09:54 Dose: 25 mg Nystatin (Mycostatin Cream) 1 ea TOP TID [facility] Last Admin: 07/30/17 09:55 Dose: 1 applic Saccharomyces Boulardii (Florastor) 250 mg PO Q12 [facility] Last Admin: 07/30/17 09:54 Dose: 250 mg Vitamin A (Vitamin A & D Oint Ud Foilpak) 1 ea TOP BID [facility] Last Admin: 07/30/17 09:54 Dose: 1 ea - Labs Labs: 07/30/17 05:56 07/30/17 05:56 PT 11.2 SECONDS (9.7-12.2) 07/22/17 20:01 INR 1.0 07/22/17 20:01 APTT 35 SECONDS (21-34) H 07/22/17 20:01 - Constitutional Appears: Non-toxic, No Acute Distress - Head Exam Head Exam: ATRAUMATIC - Respiratory Exam Respiratory Exam: NORMAL BREATHING PATTERN - Cardiovascular Exam Cardiovascular Exam: +S1, +S2 - GI/Abdominal Exam GI & Abdominal Exam: Soft. absent: Firm, Guarding, Rigid, Tenderness - Extremities Exam Extremities Exam: Normal Inspection - Neurological Exam Neurological Exam: Awake Assessment and Plan - Assessment and Plan (Free Text) Assessment: 77M with CKD dependent on dialysis Vein map shows b/l basilic vein adequate size -Will plan for AVF creation , permacath and removal of PD cath on -Cont HD via [facility] -NPO after midnight on -L arm precaution D/W Dr. Susan Novak PGY2
[2017-07-30 12:34] LABS: ST.LOUIS ENCEPH VIRUS IGG 1:32; ST.LOUIS ENCEPH VIRUS IGM <1:16
--- NOTE | 2017-07-30 12:39 | VASCLAB ---
PROCEDURE: Upper Extremity Venous Mapping HISTORY: ESRD, Vein mapping, pre-op AV Fistula. PRIORS: None. TECHNIQUE: Bilateral upper extremity, internal jugular, subclavian, axillary, brachial, ulnar, radial, basilic and upper cephalic veins were evaluated. Flow was assessed with color Doppler, compressibility, assessment of phasic flow and augmentation response. Report prepared by BOZENA Lee FINDINGS: RIGHT: 1. Internal Jugular Vein: Compressibility - Fully compressible: Thrombus - None : Flow - Phasic 2. Subclavian Vein: Unable to examine, perma cath in place. 3. Axillary Vein: Compressibility - Fully compressible: Thrombus - None 4. Brachial Vein: Compressibility - Fully compressible: Thrombus - None 5. Ulnar Vein:Compressibility - Fully compressible: Thrombus - None 6. Radial Vein:Compressibility - Fully compressible: Thrombus - None 7. Cephalic Vein: Compressibility - Fully compressible: thrombus - None 7.1. Upper Arm: Proximal Diameter: 0.31cm. Mid Diameter: 0.20cm. Distal Diameter: 0.25cm. 7.2. Forearm: Proximal Diameter: 0.20cm. Mid Diameter:0.17cm. Distal Diameter: 0.11cm 8. Basilic Vein:Compressibility - Fully compressible: thrombus - None 8.1. Upper Arm:Proximal Diameter: 0.44cm. Mid Diameter: 0.34cm. Distal Diameter: 0.23cm. 8.2. Forearm: Proximal Diameter: 0.19cm diminutive caliber distally LEFT: 1. Internal Jugular Vein: Compressibility - Fully compressible: Thrombus - None : Flow - Phasic 2. Subclavian Vein:Compressibility - Fully compressible: Thrombus - None : Flow - Phasic 3. Axillary Vein: Compressibility - Fully compressible: Thrombus - None 4. Brachial Vein: Compressibility - Fully compressible: Thrombus - None 5. Ulnar Vein:Compressibility - Fully compressible: Thrombus - None 6. Radial Vein:Compressibility - Fully compressible: Thrombus - None 7. Cephalic Vein: Compressibility - Fully compressible: thrombus - None 7.1. Upper Arm: Proximal Diameter: 0.18cm. Mid Diameter: 0.17cm. Distal Diameter: 0.25cm. 7.2. Forearm: Proximal Diameter: n/a . Mid Diameter:0.18cm. Distal Diameter: 0.11cm 8. Basilic Vein:Compressibility - Fully compressible: thrombus - None 8.1. Upper Arm:Proximal Diameter: 0.51cm. Mid Diameter: 0.34cm. Distal Diameter: 0.30cm. 8.2. Forearm: Unable to visualize. OTHER FINDINGS: IMPRESSION: 1. No evidence of venous thrombosis in bilateral upper extremities. 2. Refer to the above listed measurements for veins sizes.
--- NOTE | 2017-07-30 12:50 | CP.PCM.PN ---
Subjective - Date & Time of Evaluation Date of Evaluation: 07/30/17 Time of Evaluation: 12:47 - Subjective Subjective: still dyspneic confused at times due for HD today CXR with CHF changes on GT feeds Objective - Vital Signs/Intake and Output Vital Signs (last 24 hours): Temp Pulse Resp BP Pulse Ox 97.3 F L 81 20 156/60 H 93 L 07/30/17 12:00 07/30/17 12:19 07/30/17 12:19 07/30/17 12:19 07/30/17 12:19 Intake and Output: 07/30/17 07/30/17 06:59 18:59 Intake Total 460 700 Output Total 0 Balance 460 700 - Medications Medications: Current Medications Acetaminophen (Tylenol 325mg Tab) 650 mg PO Q6 PRN PRN Reason: Fever >100.4 F Last Admin: 07/24/17 07:48 Dose: 650 mg Albuterol/Ipratropium (Duoneb 3 Mg/0.5 Mg (3 Ml) Ud) 3 ml INH RQ6 [facility] Last Admin: 07/30/17 07:26 Dose: 3 ml Artificial Tears (Artificial Tears) 0 ml OD Q3H PRN PRN Reason: Dry eyes Last Admin: 07/26/17 17:34 Dose: 1 drop Aspirin (Aspirin Chewable) 81 mg PO DAILY [facility] Last Admin: 07/28/17 17:46 Dose: Not Given Calcium Acetate (Phoslo) 667 mg PO TIDCC [facility] Last Admin: 07/30/17 12:07 Dose: 667 mg Carvedilol (Coreg) 6.25 mg PO BID [facility] Last Admin: 07/30/17 09:54 Dose: 6.25 mg Clopidogrel Bisulfate (Plavix) 75 mg PO DAILY [facility] Last Admin: 07/29/17 09:14 Dose: 75 mg Epoetin Kumar (Procrit) 10,000 unit SC MWF [facility] Last Admin: 07/28/17 12:47 Dose: 10,000 unit Famotidine (Pepcid) 20 mg PO DAILY [facility] Last Admin: 07/30/17 09:54 Dose: 20 mg Ferric Sodium Gluconate Complex (Ferrlecit) 125 mg IVPB DAILY [facility] Stop: 08/03/17 10:01 Last Admin: 07/30/17 09:54 Dose: 125 mg Acyclovir 200 mg/ Sodium (Chloride) 100 mls @ 100 mls/hr IV Q12H [facility]AY[facility] PRN Reason: Protocol Last Admin: 07/30/17 12:07 Dose: 100 mls/hr Vancomycin/Sodium Chloride (Vancomycin 1 Gm/Ns 200 Ml) 1 gm in 200 mls @ 166.7 mls/hr IVPB MWF [facility] PRN Reason: Protocol Stop: 08/02/17 09:01 Last Admin: 07/28/17 18:40 Dose: 166.7 mls/hr Insulin Human Regular (Novolin R) 0 unit SC Q6 [facility]AYLA PRN Reason: Protocol Last Admin: 07/30/17 12:07 Dose: 2 unit Levetiracetam (Keppra) 250 mg PO BID [facility] Last Admin: 07/30/17 09:54 Dose: 250 mg Levothyroxine Sodium (Synthroid) 50 mcg PO DAILY@0630 [facility] Last Admin: 07/30/17 06:11 Dose: 50 mcg Losartan Potassium (Cozaar) 25 mg PO DAILY [facility] Last Admin: 07/30/17 09:54 Dose: 25 mg Nystatin (Mycostatin Cream) 1 ea TOP TID [facility] Last Admin: 07/30/17 09:55 Dose: 1 applic Saccharomyces Boulardii (Florastor) 250 mg PO Q12 [facility] Last Admin: 07/30/17 09:54 Dose: 250 mg Vitamin A (Vitamin A & D Oint Ud Foilpak) 1 ea TOP BID [facility] Last Admin: 07/30/17 09:54 Dose: 1 ea - Labs Labs: 07/30/17 05:56 07/30/17 05:56 PT 11.2 SECONDS (9.7-12.2) 07/22/17 20:01 INR 1.0 07/22/17 20:01 APTT 35 SECONDS (21-34) H 07/22/17 20:01 - Constitutional Appears: In Acute Distress, Chronically Ill - Head Exam Head Exam: ATRAUMATIC, NORMAL INSPECTION - Eye Exam Eye Exam: EOMI, Normal appearance - Neck Exam Neck Exam: Normal Inspection. absent: Tenderness - Respiratory Exam Respiratory Exam: Rhonchi, Wheezes - Cardiovascular Exam Cardiovascular Exam: REGULAR RHYTHM, +S1 - GI/Abdominal Exam GI & Abdominal Exam: Soft. absent: Tenderness - Extremities Exam Extremities Exam: Pedal Edema. absent: Tenderness - Neurological Exam Neurological Exam: Alert, CN II-XII Intact - Skin Skin Exam: Dry, Warm Assessment and Plan (1) TIA (transient ischemic attack) Status: Acute (2) ESRD (end stage renal disease) Status: Acute (3) Heart block AV complete Status: Acute (4) Type 2 diabetes mellitus with diabetic nephropathy Status: Acute - Assessment and Plan (Free Text) Plan: jncrease UF with HD GT feeds monitor mental status antimicrobials as per ID
--- NOTE | 2017-07-30 13:05 | CP.CCUPN ---
<Tameka Chin - Last Filed: 07/30/17 13:00> CCU Subjective - Physician Review Subjective (Free Text): Patient seen and examined at bedside. Patient is more lethargic than yesterday. NGT in place, failed swallow x 2. Plan for AVF 07/31 CCU Objective - Vital Signs / Intake & Output Vital Signs (Last 4 hours): Vital Signs Temp Pulse Resp BP Pulse Ox 07/30/17 12:19 81 20 156/60 H 93 L 07/30/17 12:00 97.3 F L 79 22 99 07/30/17 11:20 82 19 164/67 H 100 07/30/17 11:00 80 19 100 07/30/17 10:19 85 21 165/73 H 97 07/30/17 10:00 84 21 99 07/30/17 09:19 82 17 163/72 H 97 Intake and Output (Last 8hrs): Intake & Output 07/29/17 07/30/17 07/30/17 22:59 06:59 14:59 Intake Total 100 400 700 Output Total 0 0 Balance 100 400 700 Weight 165 lb 9.6 oz Intake: Intake, IV Amount 200 200 Right Forearm 200 200 Oral 300 Tube Feeding 100 200 200 Output: Urine 0 0 Urine, Voided 0 0 Other: # Voids Urine, Voided 0 # Bowel Movements 1 1 - Physical Exam Head: Positive for: Atraumatic, Normocephalic Pupils: Positive for: PERRL Extroacular Muscles: Positive for: EOMI Conjunctiva: Positive for: Normal Mouth: Positive for: Dry Nose (Internal): Positive for: Other (NGT in place) Neck: Positive for: Normal Range of Motion, Other (shiley catheter in place ) Respiratory/Chest: Positive for: Clear to Auscultation, Good Air Exchange. Negative for: Respiratory Distress Cardiovascular: Positive for: Tachycardic Abdomen: Positive for: Normal Bowel Sounds, Other (peritoneal catheter in place , c/d/i ) Back: Positive for: Normal Inspection Upper Extremity: Positive for: Normal Inspection, NORMAL PULSES, Neurovascularly Intact, Capillary Refill < 2s. Negative for: Cyanosis, Edema, Tenderness, Swelling, Erythema Lower Extremity: Positive for: Normal Inspection, NORMAL PULSES. Negative for: Edema, CALF TENDERNESS, Tenderness, Swelling, Erythema Neurological: Positive for: Other (right facial droop ) Skin: Positive for: Warm, Dry, Normal Color. Negative for: Rashes Psychiatric: Positive for: Alert, Lethargic - Medications Active Medications: Active Medications Generic Name Dose Route Start Last Admin Trade Name Freq PRN Reason Stop Dose Admin Acetaminophen 650 mg 07/24/17 07:42 07/24/17 07:48 Tylenol 325mg Tab PO 650 mg Q6 PRN Administration Fever >100.4 F Albuterol/Ipratropium 3 ml 07/13/17 14:00 07/30/17 07:26 Duoneb 3 Mg/0.5 Mg (3 Ml) Ud INH 3 ml RQ6 JAYLA Administration Artificial Tears 0 ml 07/13/17 22:00 07/26/17 17:34 Artificial Tears OD 1 drop Q3H PRN Administration Dry eyes Aspirin 81 mg 07/15/17 10:00 07/28/17 17:46 Aspirin Chewable PO Not Given DAILY JAYLA Calcium Acetate 667 mg 07/13/17 12:00 07/30/17 12:07 Phoslo PO 667 mg TIDCC JAYLA Administration Carvedilol 6.25 mg 07/23/17 18:00 07/30/17 09:54 Coreg PO 6.25 mg BID JAYLA Administration Clopidogrel Bisulfate 75 mg 07/15/17 10:00 07/29/17 09:14 Plavix PO 75 mg DAILY JAYLA Administration Epoetin Kumar 10,000 unit 07/16/17 09:00 07/28/17 12:47 Procrit SC 10,000 unit MWF JAYLA Administration Famotidine 20 mg 07/25/17 12:15 07/30/17 09:54 Pepcid PO 20 mg DAILY JAYLA Administration Ferric Sodium Gluconate Complex 125 mg 07/26/17 10:00 07/30/17 09:54 Ferrlecit IVPB 08/03/17 10:01 125 mg DAILY JAYLA Administration Acyclovir 200 mg/ Sodium 100 mls @ 100 mls/hr 07/22/17 13:00 07/30/17 12:07 Chloride IV 100 mls/hr Q12H JAYLA Administration Protocol Vancomycin/Sodium Chloride 1 gm in 200 mls @ 166.7 mls/hr 07/28/17 09:00 18:40 Vancomycin 1 Gm/Ns 200 Ml IVPB 08/02/17 09:01 166.7 mls/hr [facility] JAYLA Administration Protocol Insulin Human Regular 0 unit 07/15/17 07:32 07/30/17 12:07 Novolin R SC 2 unit Q6 JAYLA Administration Protocol Levetiracetam 250 mg 07/24/17 18:30 07/30/17 09:54 Keppra PO 250 mg BID JAYLA Administration Levothyroxine Sodium 50 mcg 07/14/17 06:30 07/30/17 06:11 Synthroid PO 50 mcg DAILY@0630 JAYLA Administration Losartan Potassium 25 mg 07/25/17 15:00 07/30/17 09:54 Cozaar PO 25 mg DAILY JAYLA Administration Nystatin 1 ea 07/29/17 14:00 07/30/17 09:55 Mycostatin Cream TOP 1 applic TID JAYLA Administration Saccharomyces Boulardii 250 mg 07/28/17 22:00 07/30/17 09:54 Florastor PO 250 mg Q12 JAYLA Administration Vitamin A 1 ea 07/19/17 18:00 07/30/17 09:54 Vitamin A & D Oint Ud Foilpak TOP 1 ea BID JAYLA Administration - Patient Studies Lab Studies: Lab Studies 07/30/17 07/30/17 07/30/17 Range/Units 11:37 05:56 05:56 WBC 10.3 (4.8-10.8) K/uL RBC 2.80 L (4.40-5.90) Mil/uL Hgb 9.0 L (12.0-18.0) g/dL Hct 26.6 L (35.0-51.0) % MCV 95.0 H (80.0-94.0) fL MCH 32.2 H (27.0-31.0) pg MCHC 33.9 (33.0-37.0) g/dL RDW 18.1 H (11.5-14.5) % Plt Count 120 L (130-400) K/uL MPV 8.6 (7.2-11.7) fL Neut % (Auto) 75.2 H (50.0-75.0) % Lymph % (Auto) 9.8 L (20.0-40.0) % [place] % (Auto) 10.6 H (0.0-10.0) % Eos % (Auto) 3.9 (0.0-4.0) % Baso % (Auto) 0.5 (0.0-2.0) % Neut # (Auto) 7.8 H (1.8-7.0) K/uL Lymph # (Auto) 1.0 (1.0-4.3) K/uL [place] # (Auto) 1.1 H (0.0-0.8) K/uL Eos # (Auto) 0.4 (0.0-0.7) K/uL Baso # (Auto) 0.1 (0.0-0.2) K/uL Neutrophils % (Manual) 75 (50-75) % Band Neutrophils % 1 (0-2) % Lymphocytes % (Manual) 7 L (20-40) % Monocytes % (Manual) 11 H (0-10) % Eosinophils % (Manual) 6 H (0-4) % Differential Comment Platelet Estimate Slightly decreased L (NORMAL) Hypochromasia (manual) Slight Poikilocytosis (manual Slight Anisocytosis (manual) Slight Microcytosis (manual) Slight Macrocytosis (manual) Slight Sodium 134 (132-148) mmol/L Potassium 4.2 (3.6-5.2) mmol/L Chloride 94 L (98-107) mmol/L Carbon Dioxide 29 (22-30) mmol/L Anion Gap 15 (10-20) BUN 51 H (9-20) mg/dL Creatinine 5.7 H (0.8-1.5) mg/dL Est GFR ( Amer) 12 Est GFR (Non-Af Amer) 10 POC Glucose (mg/dL) 179 H (65-110) mg/dL Random Glucose 167 H (75-110) mg/dL Calcium 8.5 L (8.6-10.4) mg/dl Phosphorus 5.3 H (2.5-4.5) mg/dL Magnesium 2.5 H (1.6-2.3) mg/dL Total Bilirubin 0.8 (0.2-1.3) mg/dL AST 42 (17-59) U/L ALT 34 (21-72) U/L Alkaline Phosphatase 128 H (38-126) U/L Total Protein 6.0 L (6.3-8.3) g/dL Albumin 2.7 L (3.5-5.0) g/dL Globulin 3.3 (2.2-3.9) gm/dL Albumin/Globulin Ratio 0.8 L (1.0-2.1) [facility] Encephal IgG [facility] En[facility] IgM [facility] Enceph Interp 07/30/17 07/29/17 07/29/17 Range/Units 05:51 23:42 17:33 WBC (4.8-10.8) K/uL RBC (4.40-5.90) Mil/uL Hgb (12.0-18.0) g/dL Hct (35.0-51.0) % MCV (80.0-94.0) fL MCH (27.0-31.0) pg MCHC (33.0-37.0) g/dL RDW (11.5-14.5) % Plt Count (130-400) K/uL MPV (7.2-11.7) fL Neut % (Auto) (50.0-75.0) % Lymph % (Auto) (20.0-40.0) % [place] % (Auto) (0.0-10.0) % Eos % (Auto) (0.0-4.0) % Baso % (Auto) (0.0-2.0) % Neut # (Auto) (1.8-7.0) K/uL Lymph # (Auto) (1.0-4.3) K/uL [place] # (Auto) (0.0-0.8) K/uL Eos # (Auto) (0.0-0.7) K/uL Baso # (Auto) (0.0-0.2) K/uL Neutrophils % (Manual) (50-75) % Band Neutrophils % (0-2) % Lymphocytes % (Manual) (20-40) % Monocytes % (Manual) (0-10) % Eosinophils % (Manual) (0-4) % Differential Comment Platelet Estimate (NORMAL) Hypochromasia (manual) Poikilocytosis (manual Anisocytosis (manual) Microcytosis (manual) Macrocytosis (manual) Sodium (132-148) mmol/L Potassium (3.6-5.2) mmol/L Chloride (98-107) mmol/L Carbon Dioxide (22-30) mmol/L Anion Gap (10-20) BUN (9-20) mg/dL Creatinine (0.8-1.5) mg/dL Est GFR ( Amer) Est GFR (Non-Af Amer) POC Glucose (mg/dL) 174 H 142 H 137 H (65-110) mg/dL Random Glucose (75-110) mg/dL Calcium (8.6-10.4) mg/dl Phosphorus (2.5-4.5) mg/dL Magnesium (1.6-2.3) mg/dL Total Bilirubin (0.2-1.3) mg/dL AST (17-59) U/L ALT (21-72) U/L Alkaline Phosphatase (38-126) U/L Total Protein (6.3-8.3) g/dL Albumin (3.5-5.0) g/dL Globulin (2.2-3.9) gm/dL Albumin/Globulin Ratio (1.0-2.1) .[facility] Encephal IgG .[facility] Encephal IgM [facility] Enceph Interp 07/29/17 07/20/17 Range/Units 13:08 06:38 WBC 10.8 (4.8-10.8) K/uL RBC 2.73 L (4.40-5.90) Mil/uL Hgb 8.7 L (12.0-18.0) g/dL Hct 25.7 L (35.0-51.0) % MCV 94.2 H (80.0-94.0) fL MCH 31.8 H (27.0-31.0) pg MCHC 33.8 (33.0-37.0) g/dL RDW 17.5 H (11.5-14.5) % Plt Count 116 L (130-400) K/uL MPV 8.4 (7.2-11.7) fL Neut % (Auto) 73.4 (50.0-75.0) % Lymph % (Auto) 10.1 L (20.0-40.0) % [place] % (Auto) 11.9 H (0.0-10.0) % Eos % (Auto) 4.2 H (0.0-4.0) % Baso % (Auto) 0.4 (0.0-2.0) % Neut # (Auto) 7.9 H (1.8-7.0) K/uL Lymph # (Auto) 1.1 (1.0-4.3) K/uL [place] # (Auto) 1.3 H (0.0-0.8) K/uL Eos # (Auto) 0.4 (0.0-0.7) K/uL Baso # (Auto) 0.0 (0.0-0.2) K/uL Neutrophils % (Manual) (50-75) % Band Neutrophils % (0-2) % Lymphocytes % (Manual) (20-40) % Monocytes % (Manual) (0-10) % Eosinophils % (Manual) (0-4) % Differential Comment Platelet Estimate (NORMAL) Hypochromasia (manual) Poikilocytosis (manual Anisocytosis (manual) Microcytosis (manual) Macrocytosis (manual) Sodium (132-148) mmol/L Potassium (3.6-5.2) mmol/L Chloride (98-107) mmol/L Carbon Dioxide (22-30) mmol/L Anion Gap (10-20) BUN (9-20) mg/dL Creatinine (0.8-1.5) mg/dL Est GFR ( Amer) Est GFR (Non-Af Amer) POC Glucose (mg/dL) (65-110) mg/dL Random Glucose (75-110) mg/dL Calcium (8.6-10.4) mg/dl Phosphorus (2.5-4.5) mg/dL Magnesium (1.6-2.3) mg/dL Total Bilirubin (0.2-1.3) mg/dL AST (17-59) U/L ALT (21-72) U/L Alkaline Phosphatase (38-126) U/L Total Protein (6.3-8.3) g/dL Albumin (3.5-5.0) g/dL Globulin (2.2-3.9) gm/dL Albumin/Globulin Ratio (1.0-2.1) .[facility] Encephal IgG 1:32 H .[facility] Encephal IgM <1:16 [facility] Encep Interp Past infection Laboratory Results - last 24 hr 07/20/17 07/29/17 07/29/17 06:38 13:08 17:33 WBC 10.8 RBC 2.73 L Hgb 8.7 L Hct 25.7 L MCV 94.2 H MCH 31.8 H MCHC 33.8 RDW 17.5 H Plt Count 116 L MPV 8.4 Neut % (Auto) 73.4 Lymph % (Auto) 10.1 L [place] % (Auto) 11.9 H Eos % (Auto) 4.2 H Baso % (Auto) 0.4 Neut # (Auto) 7.9 H Lymph # (Auto) 1.1 [place] # (Auto) 1.3 H Eos # (Auto) 0.4 Baso # (Auto) 0.0 Neutrophils % (Manual) Band Neutrophils % Lymphocytes % (Manual) Monocytes % (Manual) Eosinophils % (Manual) Differential Comment Platelet Estimate Hypochromasia (manual) Poikilocytosis (manual Anisocytosis (manual) Microcytosis (manual) Macrocytosis (manual) Sodium Potassium Chloride Carbon Dioxide Anion Gap BUN Creatinine Est GFR ( Amer) Est GFR (Non-Af Amer) POC Glucose (mg/dL) 137 H Random Glucose Calcium Phosphorus Magnesium Total Bilirubin AST ALT Alkaline Phosphatase Total Protein Albumin Globulin Albumin/Globulin Ratio [facility] Encephal IgG 1:32 H [facility] Encephal IgM <1:16 [facility] Enceph Interp Past infection 07/29/17 07/30/17 07/30/17 23:42 05:51 05:56 WBC 10.3 RBC 2.80 L Hgb 9.0 L Hct 26.6 L MCV 95.0 H MCH 32.2 H MCHC 33.9 RDW 18.1 H Plt Count 120 L MPV 8.6 Neut % (Auto) 75.2 H Lymph % (Auto) 9.8 L [place] % (Auto) 10.6 H Eos % (Auto) 3.9 Baso % (Auto) 0.5 Neut # (Auto) 7.8 H Lymph # (Auto) 1.0 [place] # (Auto) 1.1 H Eos # (Auto) 0.4 Baso # (Auto) 0.1 Neutrophils % (Manual) 75 Band Neutrophils % 1 Lymphocytes % (Manual) 7 L Monocytes % (Manual) 11 H Eosinophils % (Manual) 6 H Differential Comment Platelet Estimate Slightly decreased L Hypochromasia (manual) Slight Poikilocytosis (manual Slight Anisocytosis (manual) Slight Microcytosis (manual) Slight Macrocytosis (manual) Slight Sodium Potassium Chloride Carbon Dioxide Anion Gap BUN Creatinine Est GFR ( Amer) Est GFR (Non-Af Amer) POC Glucose (mg/dL) 142 H 174 H Random Glucose Calcium Phosphorus Magnesium Total Bilirubin AST ALT Alkaline Phosphatase Total Protein Albumin Globulin Albumin/Globulin Ratio [facility] Encephal IgG .[facility] Encephal IgM [facility] Enceph Interp 07/30/17 07/30/17 05:56 11:37 WBC RBC Hgb Hct MCV MCH MCHC RDW Plt Count MPV Neut % (Auto) Lymph % (Auto) [place] % (Auto) Eos % (Auto) Baso % (Auto) Neut # (Auto) Lymph # (Auto) [place] # (Auto) Eos # (Auto) Baso # (Auto) Neutrophils % (Manual) Band Neutrophils % Lymphocytes % (Manual) Monocytes % (Manual) Eosinophils % (Manual) Differential Comment Platelet Estimate Hypochromasia (manual) Poikilocytosis (manual Anisocytosis (manual) Microcytosis (manual) Macrocytosis (manual) Sodium 134 Potassium 4.2 Chloride 94 L Carbon Dioxide 29 Anion Gap 15 BUN 51 H Creatinine 5.7 H Est GFR ( Amer) 12 Est GFR (Non-Af Amer) 10 POC Glucose (mg/dL) 179 H Random Glucose 167 H Calcium 8.5 L Phosphorus 5.3 H Magnesium 2.5 H Total Bilirubin 0.8 AST 42 ALT 34 Alkaline Phosphatase 128 H Total Protein 6.0 L Albumin 2.7 L Globulin 3.3 Albumin/Globulin Ratio 0.8 L [facility] Encephal IgG [facility] Encephal IgM [facility] Enceph Interp Fingerstick Blood Sugar Results: 179 Critical Care Progress Note - Nutrition Nutrition: Nutrition Category Date Time Status NPO Diet [DIET] Diets 07/31/17 Breakfast Active Assessment/Plan - Assessment and Plan (Free Text) Assessment: This is a 76 year old male with HTN, DM, Hypercholesterimia, CAD, CABG with 5 vessel disease, ESRD on peritoneal dialysis, with symptomatic bradycardia s/p pacemaker placed [address] Valencia, hypothyroidism, who presented to the ED on 07/28 for dysphagia and slurred speech, was diagnosed with Yu's Palsy. Patient is with persistent AMS 2/2 Metabolic Encephalopathy. Started on HD. Plan for AVF 07/31. Plan: Neuro: Intubated 2/2 Respiratory Failure PRVC 14/40/450/5 - Extubated 07/27/17 - NGT in place A: Metabolic Encephalopathy Neurology consulted - Dr. 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 - Started Keppra 250mg PO BID A: Right Yu's Palsy Neurology: Dr. Thompson - on board Imaging: - Head CT: 1. Confluent area of low attenuation within the right frontal subcortical white matter suggestive for chronic ischemic change. 2. Scattered areas of chronic microvascular ischemic change. 3. Prominent ventricles. 4. No evidence of acute intracranial hemorrhage. If there is persistent concern for acute ischemic change, correlation with MRI is recommended. - Head/ Neck CTA: There is nonvisualization origin left vertebral artery. Left vertebral artery reconstitutes at approximately the lower C5 level and is seen on as a patent vessel to the level of the C2 segment where the vertebral artery is no longer visualized and appears to be occluded. Findings could represent sequela of atherosclerotic disease or dissection. Clinical correlation recommended. Right vertebral artery is patent throughout. The common carotid arteries, carotid bifurcations and internal carotid artery is widely patent. There is a calcified atherosclerotic plaque both cavernous carotid segments. The the at anterior middle and posterior cerebral arteries are patent. No evidence of large aneurysm nor vascular malformation. - Not able to have MRI - due to recent PPM placement - 07/[address]: No intracranial mass, hemorrhage or evidence of acute infarct. Right frontal encephalomalacia, possibly old MCA territory infarct. Small nonspecific right mastoid effusion. Chronic white matter ischemic change. A: Hx CVA -ASA 81mg, Plavix 75mg (held), Crestor 10mg Cardio: A: HTN, CAD, CABG with 5 vessel disease, with symptomatic bradycardia s/p pacemaker placed [address] Valecnia - Recent ECHO performed in Dr. Elizabeth's office as outpatient - ASA 81mg, Plavix 75mg, Coreg 12.5mg PO BID, Cozaar 25mg, Crestor 10mg Pulm: A: Acute Respiratory Failure - Extubated 07/27/17 Endo: A: Hypothyroidism - Resumed Synthroid 50 mcg A: DM - Accuchecks - ISS - medium - A1C 8.4 GI: A: Cirrhosis, etiology unclear Dr. Irvin consulted Renal: A: ESRD previously on peritoneal dialysis Nephrology consulted - Dr. Benson - right shiley catheter placed - Procrit - Plan for AVF 07/31 Heme/Onc A: Anemia of Chronic Disease - Baseline hemoglobin 9s - Continue with Procrit - S/P transfused 1 unit PRBC 07/23 - Ferrlecit daily x 1 week - Stool occult- negative ID: A: Sepsis 2/2 Otitis Media with right mastoid effusion? Mastoiditis? r/o Meningitis ID consulted - Dr. Gabe Villegas - Workup up ordered - negative to date - Started on Merrem 500 Q12 (07/18), Vanco 500mg on dialysis(07/19), and Acyclovir 400mg Q12 (07/22) Prophylaxis: - Pepcid 03/14 to steroids - Heparin during HD - Diet: NGT in place; failed swallow eval x 2 - PT/OT DW with Dr. Acevedo, Tameka Chin, PGY-1 <Angel Acevedo - Last Filed: 07/30/17 17:40> CCU Objective - Vital Signs / Intake & Output Vital Signs (Last 4 hours): Vital Signs Temp Pulse Resp BP Pulse Ox 07/30/17 16:23 81 21 149/67 98 07/30/17 16:08 81 17 140/63 98 07/30/17 16:00 97.8 F 81 25 H 97 07/30/17 15:53 83 20 129/72 99 07/30/17 15:38 80 20 143/70 99 07/30/17 15:22 81 16 151/71 H 95 07/30/17 15:20 81 22 156/70 H 99 07/30/17 15:00 81 22 99 07/30/17 14:20 79 22 151/60 H 99 07/30/17 14:00 76 23 99 Intake and Output (Last 8hrs): Intake & Output 07/30/17 07/30/17 07/30/17 06:59 14:59 22:59 Intake Total 400 760 90 Output Total 0 Balance 400 760 90 Weight 165 lb 9.6 oz Intake: Intake, IV Amount 200 200 0 Right Forearm 200 200 0 Oral 300 30 Tube Feeding 200 260 60 Output: Urine 0 Urine, Voided 0 Other: # Voids Urine, Voided 0 0 # Bowel Movements 0 0 - Medications Active Medications: Active Medications Generic Name Dose Route Start Last Admin Trade Name Freq PRN Reason Stop Dose Admin Acetaminophen 650 mg 07/24/17 07:42 07/24/17 07:48 Tylenol 325mg Tab PO 650 mg Q6 PRN Administration Fever >100.4 F Albuterol/Ipratropium 3 ml 07/13/17 14:00 07/30/17 13:10 Duoneb 3 Mg/0.5 Mg (3 Ml) Ud INH 3 ml RQ6 JAYLA Administration Artificial Tears 0 ml 07/13/17 22:00 07/26/17 17:34 Artificial Tears OD 1 drop Q3H PRN Administration Dry eyes Aspirin 81 mg 07/15/17 10:00 07/28/17 17:46 Aspirin Chewable PO Not Given DAILY [facility] Calcium Acetate 667 mg 07/13/17 12:00 07/30/17 16:47 Phoslo PO 667 mg TIDCC JAYLA Administration Carvedilol 6.25 mg 07/23/17 18:00 07/30/17 09:54 Coreg PO 6.25 mg BID JAYLA Administration Clopidogrel Bisulfate 75 mg 07/15/17 10:00 07/29/17 09:14 Plavix PO 75 mg DAILY JAYLA Administration Epoetin Kumar 10,000 unit 07/16/17 09:00 07/28/17 12:47 Procrit SC 10,000 unit MWF JAYLA Administration Famotidine 20 mg 07/25/17 12:15 07/30/17 09:54 Pepcid PO 20 mg DAILY JAYLA Administration Ferric Sodium Gluconate Complex 125 mg 07/26/17 10:00 07/30/17 09:54 Ferrlecit IVPB 08/03/17 10:01 125 mg DAILY JAYLA Administration Acyclovir 200 mg/ Sodium 100 mls @ 100 mls/hr 07/22/17 13:00 07/30/17 12:07 Chloride IV 100 mls/hr Q12H JAYLA Administration Protocol Vancomycin/Sodium Chloride 1 gm in 200 mls @ 166.7 mls/hr 07/28/17 09:00 18:40 Vancomycin 1 Gm/Ns 200 Ml IVPB 08/02/17 09:01 166.7 mls/hr MWF JAYLA Administration Protocol Insulin Human Regular 0 unit 07/15/17 07:32 07/30/17 12:07 Novolin R SC 2 unit Q6 JAYLA Administration Protocol Levetiracetam 250 mg 07/24/17 18:30 07/30/17 09:54 Keppra PO 250 mg BID JAYLA Administration Levothyroxine Sodium 50 mcg 07/14/17 06:30 07/30/17 06:11 Synthroid PO 50 mcg DAILY@0630 JAYLA Administration Losartan Potassium 25 mg 07/25/17 15:00 07/30/17 09:54 Cozaar PO 25 mg DAILY JAYLA Administration Nystatin 1 ea 07/29/17 14:00 07/30/17 14:26 Mycostatin Cream TOP 1 applic TID JAYLA Administration Saccharomyces Boulardii 250 mg 07/28/17 22:00 07/30/17 09:54 Florastor PO 250 mg Q12 JAYLA Administration Vitamin A 1 ea 07/19/17 18:00 07/30/17 09:54 Vitamin A & D Oint Ud Foilpak TOP 1 ea BID JAYLA Administration - Patient Studies Lab Studies: Lab Studies 07/30/17 07/30/17 07/30/17 Range/Units 11:37 05:56 05:56 WBC 10.3 (4.8-10.8) K/uL RBC 2.80 L (4.40-5.90) Mil/uL Hgb 9.0 L (12.0-18.0) g/dL Hct 26.6 L (35.0-51.0) % MCV 95.0 H (80.0-94.0) fL MCH 32.2 H (27.0-31.0) pg MCHC 33.9 (33.0-37.0) g/dL RDW 18.1 H (11.5-14.5) % Plt Count 120 L (130-400) K/uL MPV 8.6 (7.2-11.7) fL Neut % (Auto) 75.2 H (50.0-75.0) % Lymph % (Auto) 9.8 L (20.0-40.0) % [place] % (Auto) 10.6 H (0.0-10.0) % Eos % (Auto) 3.9 (0.0-4.0) % Baso % (Auto) 0.5 (0.0-2.0) % Neut # (Auto) 7.8 H (1.8-7.0) K/uL Lymph # (Auto) 1.0 (1.0-4.3) K/uL [place] # (Auto) 1.1 H (0.0-0.8) K/uL Eos # (Auto) 0.4 (0.0-0.7) K/uL Baso # (Auto) 0.1 (0.0-0.2) K/uL Neutrophils % (Manual) 75 (50-75) % Band Neutrophils % 1 (0-2) % Lymphocytes % (Manual) 7 L (20-40) % Monocytes % (Manual) 11 H (0-10) % Eosinophils % (Manual) 6 H (0-4) % Platelet Estimate Slightly decreased L (NORMAL) Hypochromasia (manual) Slight Poikilocytosis (manual Slight Anisocytosis (manual) Slight Microcytosis (manual) Slight Macrocytosis (manual) Slight Sodium 134 (132-148) mmol/L Potassium 4.2 (3.6-5.2) mmol/L Chloride 94 L (98-107) mmol/L Carbon Dioxide 29 (22-30) mmol/L Anion Gap 15 (10-20) BUN 51 H (9-20) mg/dL Creatinine 5.7 H (0.8-1.5) mg/dL Est GFR ( Amer) 12 Est GFR (Non-Af Amer) 10 POC Glucose (mg/dL) 179 H (65-110) mg/dL Random Glucose 167 H (75-110) mg/dL Calcium 8.5 L (8.6-10.4) mg/dl Phosphorus 5.3 H (2.5-4.5) mg/dL Magnesium 2.5 H (1.6-2.3) mg/dL Total Bilirubin 0.8 (0.2-1.3) mg/dL AST 42 (17-59) U/L ALT 34 (21-72) U/L Alkaline Phosphatase 128 H (38-126) U/L Total Protein 6.0 L (6.3-8.3) g/dL Albumin 2.7 L (3.5-5.0) g/dL Globulin 3.3 (2.2-3.9) gm/dL Albumin/Globulin Ratio 0.8 L (1.0-2.1) [facility] Encephal IgG [facility] Encephal IgM [facility] Enceph Interp 07/30/17 07/29/17 07/29/17 Range/Units 05:51 23:42 17:33 WBC (4.8-10.8) K/uL RBC (4.40-5.90) Mil/uL Hgb (12.0-18.0) g/dL Hct (35.0-51.0) % MCV (80.0-94.0) fL MCH (27.0-31.0) pg MCHC (33.0-37.0) g/dL RDW (11.5-14.5) % Plt Count (130-400) K/uL MPV (7.2-11.7) fL Neut % (Auto) (50.0-75.0) % Lymph % (Auto) (20.0-40.0) % [place] % (Auto) (0.0-10.0) % Eos % (Auto) (0.0-4.0) % Baso % (Auto) (0.0-2.0) % Neut # (Auto) (1.8-7.0) K/uL Lymph # (Auto) (1.0-4.3) K/uL [place] # (Auto) (0.0-0.8) K/uL Eos # (Auto) (0.0-0.7) K/uL Baso # (Auto) (0.0-0.2) K/uL Neutrophils % (Manual) (50-75) % Band Neutrophils % (0-2) % Lymphocytes % (Manual) (20-40) % Monocytes % (Manual) (0-10) % Eosinophils % (Manual) (0-4) % Platelet Estimate (NORMAL) Hypochromasia (manual) Poikilocytosis (manual Anisocytosis (manual) Microcytosis (manual) Macrocytosis (manual) Sodium (132-148) mmol/L Potassium (3.6-5.2) mmol/L Chloride (98-107) mmol/L Carbon Dioxide (22-30) mmol/L Anion Gap (10-20) BUN (9-20) mg/dL Creatinine (0.8-1.5) mg/dL Est GFR ( Amer) Est GFR (Non-Af Amer) POC Glucose (mg/dL) 174 H 142 H 137 H (65-110) mg/dL Random Glucose (75-110) mg/dL Calcium (8.6-10.4) mg/dl Phosphorus (2.5-4.5) mg/dL Magnesium (1.6-2.3) mg/dL Total Bilirubin (0.2-1.3) mg/dL AST (17-59) U/L ALT (21-72) U/L Alkaline Phosphatase (38-126) U/L Total Protein (6.3-8.3) g/dL Albumin (3.5-5.0) g/dL Globulin (2.2-3.9) gm/dL Albumin/Globulin Ratio (1.0-2.1) [place] Encephal IgG [place] Encephal IgM [facility] Encep Interp 07/20/17 Range/Units 06:38 WBC (4.8-10.8) K/uL RBC (4.40-5.90) Mil/uL Hgb (12.0-18.0) g/dL Hct (35.0-51.0) % MCV (80.0-94.0) fL MCH (27.0-31.0) pg MCHC (33.0-37.0) g/dL RDW (11.5-14.5) % Plt Count (130-400) K/uL MPV (7.2-11.7) fL Neut % (Auto) (50.0-75.0) % Lymph % (Auto) (20.0-40.0) % [place] % (Auto) (0.0-10.0) % Eos % (Auto) (0.0-4.0) % Baso % (Auto) (0.0-2.0) % Neut # (Auto) (1.8-7.0) K/uL Lymph # (Auto) (1.0-4.3) K/uL [place] # (Auto) (0.0-0.8) K/uL Eos # (Auto) (0.0-0.7) K/uL Baso # (Auto) (0.0-0.2) K/uL Neutrophils % (Manual) (50-75) % Band Neutrophils % (0-2) % Lymphocytes % (Manual) (20-40) % Monocytes % (Manual) (0-10) % Eosinophils % (Manual) (0-4) % Platelet Estimate (NORMAL) Hypochromasia (manual) Poikilocytosis (manual Anisocytosis (manual) Microcytosis (manual) Macrocytosis (manual) Sodium (132-148) mmol/L Potassium (3.6-5.2) mmol/L Chloride (98-107) mmol/L Carbon Dioxide (22-30) mmol/L Anion Gap (10-20) BUN (9-20) mg/dL Creatinine (0.8-1.5) mg/dL Est GFR ( Amer) Est GFR (Non-Af Amer) POC Glucose (mg/dL) (65-110) mg/dL Random Glucose (75-110) mg/dL Calcium (8.6-10.4) mg/dl Phosphorus (2.5-4.5) mg/dL Magnesium (1.6-2.3) mg/dL Total Bilirubin (0.2-1.3) mg/dL AST (17-59) U/L ALT (21-72) U/L Alkaline Phosphatase (38-126) U/L Total Protein (6.3-8.3) g/dL Albumin (3.5-5.0) g/dL Globulin (2.2-3.9) gm/dL Albumin/Globulin Ratio (1.0-2.1) .[facility] Encephal IgG 1:32 H [facility] Encephal IgM <1:16 [facility] Enceph Interp Past infection Laboratory Results - last 24 hr 07/20/17 07/29/17 07/29/17 06:38 17:33 23:42 WBC RBC Hgb Hct MCV MCH MCHC RDW Plt Count MPV Neut % (Auto) Lymph % (Auto) [place] % (Auto) Eos % (Auto) Baso % (Auto) Neut # (Auto) Lymph # (Auto) [place] # (Auto) Eos # (Auto) Baso # (Auto) Neutrophils % (Manual) Band Neutrophils % Lymphocytes % (Manual) Monocytes % (Manual) Eosinophils % (Manual) Platelet Estimate Hypochromasia (manual) Poikilocytosis (manual Anisocytosis (manual) Microcytosis (manual) Macrocytosis (manual) Sodium Potassium Chloride Carbon Dioxide Anion Gap BUN Creatinine Est GFR ( Amer) Est GFR (Non-Af Amer) POC Glucose (mg/dL) 137 H 142 H Random Glucose Calcium Phosphorus Magnesium Total Bilirubin AST ALT Alkaline Phosphatase Total Protein Albumin Globulin Albumin/Globulin Ratio .[facility] Encephal IgG 1:32 H .[facility] Encephal IgM <1:16 [facility] Interp Past infection 07/30/17 07/30/17 07/30/17 05:51 05:56 05:56 WBC 10.3 RBC 2.80 L Hgb 9.0 L Hct 26.6 L MCV 95.0 H MCH 32.2 H MCHC 33.9 RDW 18.1 H Plt Count 120 L MPV 8.6 Neut % (Auto) 75.2 H Lymph % (Auto) 9.8 L [place] % (Auto) 10.6 H Eos % (Auto) 3.9 Baso % (Auto) 0.5 Neut # (Auto) 7.8 H Lymph # (Auto) 1.0 [place] # (Auto) 1.1 H Eos # (Auto) 0.4 Baso # (Auto) 0.1 Neutrophils % (Manual) 75 Band Neutrophils % 1 Lymphocytes % (Manual) 7 L Monocytes % (Manual) 11 H Eosinophils % (Manual) 6 H Platelet Estimate Slightly decreased L Hypochromasia (manual) Slight Poikilocytosis (manual Slight Anisocytosis (manual) Slight Microcytosis (manual) Slight Macrocytosis (manual) Slight Sodium 134 Potassium 4.2 Chloride 94 L Carbon Dioxide 29 Anion Gap 15 BUN 51 H Creatinine 5.7 H Est GFR ( Amer) 12 Est GFR (Non-Af Amer) 10 POC Glucose (mg/dL) 174 H Random Glucose 167 H Calcium 8.5 L Phosphorus 5.3 H Magnesium 2.5 H Total Bilirubin 0.8 AST 42 ALT 34 Alkaline Phosphatase 128 H Total Protein 6.0 L Albumin 2.7 L Globulin 3.3 Albumin/Globulin Ratio 0.8 L .[facility] Encephal IgG .[facility] Encephal IgM [facility] Interp 07/30/17 11:37 WBC RBC Hgb Hct MCV MCH MCHC RDW Plt Count MPV Neut % (Auto) Lymph % (Auto) [place] % (Auto) Eos % (Auto) Baso % (Auto) Neut # (Auto) Lymph # (Auto) [place] # (Auto) Eos # (Auto) Baso # (Auto) Neutrophils % (Manual) Band Neutrophils % Lymphocytes % (Manual) Monocytes % (Manual) Eosinophils % (Manual) Platelet Estimate Hypochromasia (manual) Poikilocytosis (manual Anisocytosis (manual) Microcytosis (manual) Macrocytosis (manual) Sodium Potassium Chloride Carbon Dioxide Anion Gap BUN Creatinine Est GFR ( Amer) Est GFR (Non-Af Amer) POC Glucose (mg/dL) 179 H Random Glucose Calcium Phosphorus Magnesium Total Bilirubin AST ALT Alkaline Phosphatase Total Protein Albumin Globulin Albumin/Globulin Ratio [facility]cephal IgG [facility] Encephal IgM [facility] Enceph Interp Critical Care Progress Note - Nutrition Nutrition: Nutrition Category Date Time Status NPO Diet [DIET] Diets 07/31/17 Breakfast Active Attending/Attestation - Attestation I have personally seen and examined this patient.: Yes I have fully participated in the care of the patient.: Yes I have reviewed all pertinent clinical information: Yes Notes (Text): 07/30/17 17:39 Patient seen and examined in the intensive care unit. More lethargic today Continue hemodialysis Possible aVF tomorrow Continue IV antibiotics Transfuse if necessary
[2017-07-30] MEDS: EPOETIN ALFA 10,000 UNIT/ML ML SC SCH (18:35)
[2017-07-30] MEDS: Vancomycin 1 gm/NS 200 ml 1 GM/200 ML BAG IVPB SCH (19:38)
--- NOTE | 2017-07-30 22:20 | CP.PCM.PN ---
Subjective - Date & Time of Evaluation Date of Evaluation: 07/30/17 Time of Evaluation: 22:20 - Subjective Subjective: afebrile, More alert, verbalizing. REMAINS EXTUBATED. NGT FEEDINGS. seen on hemodialysis today. LABS REVIEWED. WBC IMPROVING . SPUTUM N [facility]IL[facility]. ALL CULTURES -VE TO DATE Objective - Vital Signs/Intake and Output Vital Signs (last 24 hours): Temp Pulse Resp BP Pulse Ox 98.3 F 88 19 163/72 H 100 07/30/17 20:00 07/30/17 20:23 07/30/17 20:23 07/30/17 20:23 07/30/17 20:23 Intake and Output: 07/30/17 07/31/17 18:59 06:59 Intake Total 910 140 Balance 910 140 - Medications Medications: Current Medications Acetaminophen (Tylenol 325mg Tab) 650 mg PO Q6 PRN PRN Reason: Fever >100.4 F Last Admin: 07/24/17 07:48 Dose: 650 mg Albuterol/Ipratropium (Duoneb 3 Mg/0.5 Mg (3 Ml) Ud) 3 ml INH RQ6 [facility] Last Admin: 07/30/17 20:06 Dose: 3 ml Artificial Tears (Artificial Tears) 0 ml OD Q3H PRN PRN Reason: Dry eyes Last Admin: 07/26/17 17:34 Dose: 1 drop Aspirin (Aspirin Chewable) 81 mg PO DAILY [facility] Last Admin: 07/28/17 17:46 Dose: Not Given Calcium Acetate (Phoslo) 667 mg PO TIDCC [facility] Last Admin: 07/30/17 16:47 Dose: 667 mg Carvedilol (Coreg) 6.25 mg PO BID [facility] Last Admin: 07/30/17 18:23 Dose: 6.25 mg Clopidogrel Bisulfate (Plavix) 75 mg PO DAILY [facility] Last Admin: 07/29/17 09:14 Dose: 75 mg Epoetin Kumar (Procrit) 10,000 unit SC MWF [facility] Last Admin: 07/30/17 18:35 Dose: 10,000 unit Famotidine (Pepcid) 20 mg PO DAILY [facility] Last Admin: 07/30/17 09:54 Dose: 20 mg Ferric Sodium Gluconate Complex (Ferrlecit) 125 mg IVPB DAILY [facility] Stop: 08/03/17 10:01 Last Admin: 07/30/17 09:54 Dose: 125 mg Acyclovir 200 mg/ Sodium (Chloride) 100 mls @ 100 mls/hr IV Q12H [facility] PRN Reason: Protocol Last Admin: 07/30/17 12:07 Dose: 100 mls/hr Vancomycin/Sodium Chloride (Vancomycin 1 Gm/Ns 200 Ml) 1 gm in 200 mls @ 166.7 mls/hr IVPB MWF [facility] PRN Reason: Protocol Stop: 08/02/17 09:01 Last Admin: 07/30/17 19:38 Dose: 166.7 mls/hr Insulin Human Regular (Novolin R) 0 unit SC Q6 [facility] PRN Reason: Protocol Last Admin: 07/30/17 18:00 Dose: Not Given Levetiracetam (Keppra) 250 mg PO BID [facility] Last Admin: 07/30/17 18:23 Dose: 250 mg Levothyroxine Sodium (Synthroid) 50 mcg PO DAILY@0630 [facility] Last Admin: 07/30/17 06:11 Dose: 50 mcg Losartan Potassium (Cozaar) 25 mg PO DAILY [facility] Last Admin: 07/30/17 09:54 Dose: 25 mg Nystatin (Mycostatin Cream) 1 ea TOP TID [facility] Last Admin: 07/30/17 18:23 Dose: 1 applic Saccharomyces Boulardii (Florastor) 250 mg PO Q12 [facility] Last Admin: 07/30/17 21:05 Dose: 250 mg Vitamin A (Vitamin A & D Oint Ud Foilpak) 1 ea TOP BID [facility] Last Admin: 07/30/17 18:23 Dose: 1 ea - Labs Labs: 07/30/17 05:56 07/30/17 05:56 PT 11.2 SECONDS (9.7-12.2) 07/22/17 20:01 INR 1.0 07/22/17 20:01 APTT 35 SECONDS (21-34) H 07/22/17 20:01 - Constitutional Appears: No Acute Distress - Head Exam Head Exam: NORMAL INSPECTION - Eye Exam Eye Exam: EOMI, PERRL - ENT Exam ENT Exam: Normal Oropharynx - Neck Exam Neck Exam: Normal Inspection - Respiratory Exam Respiratory Exam: Decreased Breath Sounds - Cardiovascular Exam Cardiovascular Exam: REGULAR RHYTHM, +S1, +S2 - GI/Abdominal Exam GI & Abdominal Exam: Soft, Normal Bowel Sounds - Neurological Exam Neurological Exam: Awake (slightly lethargic today.), CN II-XII Intact - Skin Skin Exam: Normal Color, Warm Assessment and Plan (1) Toxic metabolic encephalopathy Assessment & Plan: ON IV VANCOMYCIN 1GM POST HD MWF. 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
--- NOTE | 2017-07-30 22:45 | CP.PCM.PN ---
Subjective - Date & Time of Evaluation Date of Evaluation: 07/30/17 Time of Evaluation: 17:00 - Subjective Subjective: Patient seen and evaluated No new cardiac events noted Objective - Vital Signs/Intake and Output Vital Signs (last 24 hours): Temp Pulse Resp BP Pulse Ox 98.3 F 88 19 163/72 H 100 07/30/17 20:00 07/30/17 20:23 07/30/17 20:23 07/30/17 20:23 07/30/17 20:23 Intake and Output: 07/30/17 07/31/17 18:59 06:59 Intake Total 910 140 Balance 910 140 - Medications Medications: Current Medications Acetaminophen (Tylenol 325mg Tab) 650 mg PO Q6 PRN PRN Reason: Fever >100.4 F Last Admin: 07/24/17 07:48 Dose: 650 mg Albuterol/Ipratropium (Duoneb 3 Mg/0.5 Mg (3 Ml) Ud) 3 ml INH RQ6 [facility] Last Admin: 07/30/17 20:06 Dose: 3 ml Artificial Tears (Artificial Tears) 0 ml OD Q3H PRN PRN Reason: Dry eyes Last Admin: 07/26/17 17:34 Dose: 1 drop Aspirin (Aspirin Chewable) 81 mg PO DAILY [facility] Last Admin: 07/28/17 17:46 Dose: Not Given Calcium Acetate (Phoslo) 667 mg PO TIDCC [facility] Last Admin: 07/30/17 16:47 Dose: 667 mg Carvedilol (Coreg) 6.25 mg PO BID [facility] Last Admin: 07/30/17 18:23 Dose: 6.25 mg Clopidogrel Bisulfate (Plavix) 75 mg PO DAILY [facility] Last Admin: 07/29/17 09:14 Dose: 75 mg Epoetin Kumar (Procrit) 10,000 unit SC MWF [facility] Last Admin: 07/30/17 18:35 Dose: 10,000 unit Famotidine (Pepcid) 20 mg PO DAILY [facility] Last Admin: 07/30/17 09:54 Dose: 20 mg Ferric Sodium Gluconate Complex (Ferrlecit) 125 mg IVPB DAILY [facility] Stop: 08/03/17 10:01 Last Admin: 07/30/17 09:54 Dose: 125 mg Acyclovir 200 mg/ Sodium (Chloride) 100 mls @ 100 mls/hr IV Q12H [facility] PRN Reason: Protocol Last Admin: 07/30/17 12:07 Dose: 100 mls/hr Vancomycin/Sodium Chloride (Vancomycin 1 Gm/Ns 200 Ml) 1 gm in 200 mls @ 166.7 mls/hr IVPB MWF [facility] PRN Reason: Protocol Stop: 08/02/17 09:01 Last Admin: 07/30/17 19:38 Dose: 166.7 mls/hr Insulin Human Regular (Novolin R) 0 unit SC Q6 [facility] PRN Reason: Protocol Last Admin: 07/30/17 18:00 Dose: Not Given Levetiracetam (Keppra) 250 mg PO BID [facility] Last Admin: 07/30/17 18:23 Dose: 250 mg Levothyroxine Sodium (Synthroid) 50 mcg PO DAILY@0630 [facility] Last Admin: 07/30/17 06:11 Dose: 50 mcg Losartan Potassium (Cozaar) 25 mg PO DAILY [facility] Last Admin: 07/30/17 09:54 Dose: 25 mg Nystatin (Mycostatin Cream) 1 ea TOP TID [facility] Last Admin: 07/30/17 18:23 Dose: 1 applic Saccharomyces Boulardii (Florastor) 250 mg PO Q12 [facility] Last Admin: 07/30/17 21:05 Dose: 250 mg Vitamin A (Vitamin A & D Oint Ud Foilpak) 1 ea TOP BID [facility] Last Admin: 07/30/17 18:23 Dose: 1 ea - Labs Labs: 07/30/17 05:56 07/30/17 05:56 PT 11.2 SECONDS (9.7-12.2) 07/22/17 20:01 INR 1.0 07/22/17 20:01 APTT 35 SECONDS (21-34) H 07/22/17 20:01
--- NOTE | 2017-07-30 23:16 | CP.PCM.PN ---
Subjective - Date & Time of Evaluation Date of Evaluation: 07/30/17 Time of Evaluation: 23:16 - Subjective Subjective: Patient is episodically more awake. Received a dialysis. Comfortable today. Not in any distress On examination: Vital signs stable. Still receiving NG tube feeding. Patient is having difficult time in eating by mouth On examination reviewed Labs reviewed Spoke to the family. Assessment and recommendation: 77-year-old male with a history of heart disease CABG renal insufficiency admitted with complete heart block status post pacemaker complicated with altered mental status. Now having metabolic encephalopathy. Pneumonia. Currently stable. Continue the current treatment Objective - Vital Signs/Intake and Output Vital Signs (last 24 hours): Temp Pulse Resp BP Pulse Ox 98.3 F 86 18 162/61 H 98 07/30/17 20:00 07/30/17 22:23 07/30/17 22:23 07/30/17 22:23 07/30/17 22:23 Intake and Output: 07/30/17 07/31/17 18:59 06:59 Intake Total 910 200 Balance 910 200 - Medications Medications: Current Medications Acetaminophen (Tylenol 325mg Tab) 650 mg PO Q6 PRN PRN Reason: Fever >100.4 F Last Admin: 07/24/17 07:48 Dose: 650 mg Albuterol/Ipratropium (Duoneb 3 Mg/0.5 Mg (3 Ml) Ud) 3 ml INH RQ6 [facility] Last Admin: 07/30/17 20:06 Dose: 3 ml Artificial Tears (Artificial Tears) 0 ml OD Q3H PRN PRN Reason: Dry eyes Last Admin: 07/26/17 17:34 Dose: 1 drop Aspirin (Aspirin Chewable) 81 mg PO DAILY [facility] Last Admin: 07/28/17 17:46 Dose: Not Given Calcium Acetate (Phoslo) 667 mg PO TIDCC [facility] Last Admin: 07/30/17 16:47 Dose: 667 mg Carvedilol (Coreg) 6.25 mg PO BID [facility] Last Admin: 07/30/17 18:23 Dose: 6.25 mg Clopidogrel Bisulfate (Plavix) 75 mg PO DAILY [facility] Last Admin: 07/29/17 09:14 Dose: 75 mg Epoetin Kumar (Procrit) 10,000 unit SC MWF [facility] Last Admin: 07/30/17 18:35 Dose: 10,000 unit Famotidine (Pepcid) 20 mg PO DAILY [facility] Last Admin: 07/30/17 09:54 Dose: 20 mg Ferric Sodium Gluconate Complex (Ferrlecit) 125 mg IVPB DAILY [facility] Stop: 08/03/17 10:01 Last Admin: 07/30/17 09:54 Dose: 125 mg Acyclovir 200 mg/ Sodium (Chloride) 100 mls @ 100 mls/hr IV Q12H [facility] PRN Reason: Protocol Last Admin: 07/30/17 12:07 Dose: 100 mls/hr Vancomycin/Sodium Chloride (Vancomycin 1 Gm/Ns 200 Ml) 1 gm in 200 mls @ 166.7 mls/hr IVPB MWF [facility] PRN Reason: Protocol Stop: 08/02/17 09:01 Last Admin: 07/30/17 19:38 Dose: 166.7 mls/hr Insulin Human Regular (Novolin R) 0 unit SC Q6 [facility] PRN Reason: Protocol Last Admin: 07/30/17 18:00 Dose: Not Given Levetiracetam (Keppra) 250 mg PO BID [facility] Last Admin: 07/30/17 18:23 Dose: 250 mg Levothyroxine Sodium (Synthroid) 50 mcg PO DAILY@0630 [facility] Last Admin: 07/30/17 06:11 Dose: 50 mcg Losartan Potassium (Cozaar) 25 mg PO DAILY [facility] Last Admin: 07/30/17 09:54 Dose: 25 mg Nystatin (Mycostatin Cream) 1 ea TOP TID [facility] Last Admin: 07/30/17 18:23 Dose: 1 applic Saccharomyces Boulardii (Florastor) 250 mg PO Q12 [facility] Last Admin: 07/30/17 21:05 Dose: 250 mg Vitamin A (Vitamin A & D Oint Ud Foilpak) 1 ea TOP BID [facility] Last Admin: 07/30/17 18:23 Dose: 1 ea - Labs Labs: 07/30/17 05:56 07/30/17 05:56 PT 11.2 SECONDS (9.7-12.2) 07/22/17 20:01 INR 1.0 07/22/17 20:01 APTT 35 SECONDS (21-34) H 07/22/17 20:01
[2017-07-31] MEDS: (Novolin R) Insulin Human Regular 100 units/ml vial SC SCH ×4 (00:01→18:11)
[2017-07-31] MEDS: Albuterol-Ipratrop 3 mg / 0.5 (3 ml) UD INH SCH ×5 (01:24→20:12)
[2017-07-31] MEDS: Levothyroxine 50 MCG TAB PO SCH (06:18)
[2017-07-31 06:32] LABS: BASO # 0.1 K/uL (0.0-0.2); BASO % 0.7 % (0.0-2.0); EOS # 0.3 K/uL (0.0-0.7); EOS % 3.6 % (0.0-4.0); HEMOGLOBIN 9.1 g/dL (12.0-18.0); LYMPH # 0.9 K/uL (1.0-4.3); LYMPH % 9.2 % (20.0-40.0); MEAN CELL VOLUME 96.7 fL (80.0-94.0); MEAN CORPUSCULAR HEMOGLOBIN 32.2 pg (27.0-31.0); MEAN CORPUSCULAR HGB CONC 33.3 g/dL (33.0-37.0); MEAN PLATELET VOLUME 9.3 fL (7.2-11.7); MONO % 9.8 % (0.0-10.0); NEUT # 7.5 K/uL (1.8-7.0); NEUT % 76.7 % (50.0-75.0); PLATELET COUNT 129 K/uL (130-400); PROTHROMBIN TIME 10.6 SECONDS (9.7-12.2); RBC 2.81 Mil/uL (4.40-5.90); RED CELL DISTRIBUTION WIDTH 18.6 % (11.5-14.5); WHITE BLOOD COUNT 9.8 K/uL (4.8-10.8)
[2017-07-31 06:47] LABS: ALB/GLOB RATIO 0.8 (1.0-2.1); CALCIUM 8.2 mg/dl (8.6-10.4)
[2017-07-31] MEDS ORDERED: Sodium Chloride 0.9% 500 ML IV ONE (08:45)
[2017-07-31 08:48] LABS: EOSINOPHIL 1 % (0-4); LYMPHOCYTE 6 % (20-40); TOTAL CELLS COUNTED 100
[2017-07-31 08:49] LABS: MONOCYTE 5 % (0-10); NEUTROPHIL 88 % (50-75); PLATELET ESTIMATE SLIGHTLY DECREASED (NORMAL)
[2017-07-31] MEDS ORDERED: HEPARIN-NS 5,000 UNITS/500 ML 5,000 UNIT/500 ML BAG IV ONE (08:49)
[2017-07-31 08:50] LABS: ANISOCYTOSIS SLIGHT; HYPOCHROMIC SLIGHT; POLYCHROMIC SLIGHT
[2017-07-31] MEDS ORDERED: Propofol 10 mg/ml Inj (20 ML) ONE (08:53)
--- NOTE | 2017-07-31 09:22 | CP.PCM.PN ---
Subjective - Date & Time of Evaluation Date of Evaluation: 07/31/17 Time of Evaluation: 09:19 - Subjective Subjective: s/p dialysis 07/30- UF 2500ml- tolerated well sent for AV access now still confused , doing better discussed with family- will need arrangements for outpt HD Objective - Vital Signs/Intake and Output Vital Signs (last 24 hours): Temp Pulse Resp BP Pulse Ox 98.6 F 82 20 164/82 H 100 07/31/17 08:00 07/31/17 08:24 07/31/17 08:24 07/31/17 08:24 07/31/17 08:24 Intake and Output: 07/31/17 07/31/17 06:59 18:59 Intake Total 590 0 Balance 590 0 - Medications Medications: Current Medications Acetaminophen (Tylenol 325mg Tab) 650 mg PO Q6 PRN PRN Reason: Fever >100.4 F Last Admin: 07/24/17 07:48 Dose: 650 mg Albuterol/Ipratropium (Duoneb 3 Mg/0.5 Mg (3 Ml) Ud) [address] [facility] Last Admin: 07/31/17 07:51 Dose: 3 ml Artificial Tears (Artificial Tears) 0 ml OD Q3H PRN PRN Reason: Dry eyes Last Admin: 07/26/17 17:34 Dose: 1 drop Aspirin (Aspirin Chewable) [address] [facility] Last Admin: 07/28/17 17:46 Dose: Not Given Calcium Acetate (Phoslo) [address] [facility] Last Admin: 07/31/17 07:33 Dose: Not Given Carvedilol (Coreg) 6.[address] [facility] Last Admin: 07/30/17 18:23 Dose: 6.25 mg Clopidogrel Bisulfate (Plavix) [address] [facility] Last Admin: 07/29/17 09:14 Dose: 75 mg Epoetin Kumar (Procrit) 10,[address] [facility] Last Admin: 07/30/17 18:35 Dose: 10,000 unit Famotidine (Pepcid) [address] [facility] Last Admin: 07/30/17 09:54 Dose: 20 mg Ferric Sodium Gluconate Complex (Ferrlecit) [address] [facility] Stop: 08/03/17 10:01 Last Admin: 07/30/17 09:54 Dose: 125 mg Acyclovir 200 mg/ Sodium (Chloride) 100 mls @ 100 mls/hr IV Q12H [facility] PRN Reason: Protocol Last Admin: 07/31/17 00:04 Dose: 100 mls/hr Vancomycin/Sodium Chloride (Vancomycin 1 Gm/Ns 200 Ml) 1 gm in 200 mls @ 166.7 mls/hr IVPB MWF [facility] PRN Reason: Protocol Stop: 08/02/17 09:01 Last Admin: 07/30/17 19:38 Dose: 166.7 mls/hr Insulin Human Regular (Novolin R) 0 unit SC Q6 [facility] PRN Reason: Protocol Last Admin: 07/31/17 06:24 Dose: Not Given Levetiracetam (Keppra) [address] [facility] Last Admin: 07/30/17 18:23 Dose: 250 mg Levothyroxine Sodium (Synthroid) 50 mcg PO DAILY@0630 [facility] Last Admin: 07/31/17 06:18 Dose: 50 mcg Losartan Potassium (Cozaar) [address] [facility] Last Admin: 07/30/17 09:54 Dose: 25 mg Nystatin (Mycostatin Cream) [address] [facility] Last Admin: 07/30/17 18:23 Dose: 1 applic Saccharomyces Boulardii (Florastor) [address] [facility] Last Admin: 07/30/17 21:05 Dose: 250 mg Vitamin A (Vitamin A & D Oint Ud Foilpak) [address] [facility] Last Admin: 07/30/17 18:23 Dose: 1 ea - Labs Labs: 07/31/17 06:21 07/31/17 06:14 PT 10.6 SECONDS (9.7-12.2) 07/31/17 06:21 INR 1.0 07/31/17 06:21 APTT 27 SECONDS (21-34) 07/31/17 06:21 - Constitutional Appears: No Acute Distress, Confused, Chronically Ill - Head Exam Head Exam: ATRAUMATIC, NORMAL INSPECTION - Eye Exam Eye Exam: EOMI, Normal appearance - Neck Exam Neck Exam: Normal Inspection. absent: Tenderness - Respiratory Exam Respiratory Exam: Rhonchi, NORMAL BREATHING PATTERN - Cardiovascular Exam Cardiovascular Exam: REGULAR RHYTHM, +S1 - GI/Abdominal Exam GI & Abdominal Exam: Soft. absent: Tenderness - Extremities Exam Extremities Exam: Normal Inspection. absent: Tenderness - Neurological Exam Neurological Exam: Awake, CN II-XII Intact - Skin Skin Exam: Dry, Warm Assessment and Plan (1) TIA (transient ischemic attack) Status: Acute (2) ESRD (end stage renal disease) Status: Acute (3) Heart block AV complete Status: Acute (4) Type 2 diabetes mellitus with diabetic nephropathy Status: Acute - Assessment and Plan (Free Text) Plan: AV access now dialysis in AM continue increased UF goals arrange for outpt HD
[2017-07-31] MEDS ORDERED: Vasopressin 20 Units/ml Inj ONE (09:35)
--- NOTE | 2017-07-31 11:13 | RAD ---
PROCEDURE: Intraoperative Fluoroscopy. HISTORY: RENAL FAILURE FINDINGS: Fluoroscopic assistance was provided. Fluoroscopy time = 47.9 seconds. Radiation dose = 2.92 mGy- cm Please refer to the operative report from SHELLY Kenyon.
[2017-07-31] MEDS ORDERED: Neostigmine Methylsulfate 3mg/3ml Syringe IV ONE (11:27)
[2017-07-31] MEDS ORDERED: Sodium Chloride 0.9% 1,000 ML IV ONE (11:45)
--- NOTE | 2017-07-31 11:53 | PCM.SURG1 ---
Surgeon's Initial Post Op Note - Surgeon's Notes Surgeon: MD Susan Operating Table Assembler: DAVID [id number] Pre-Operative Diagnosis: Non-functional PD catheter, Need for dialysis access Operative Findings: n/a Post-Operative Diagnosis: same Operation Performed: Removed of peritoneal dialysis catheter, Insertion of permacath- right Subclavian. Arteriovenous fistula - distal brachial artery to median antecubital vein Specimen/Specimens Removed: n/a Estimated Blood Loss: EBL {In ML}: 50 Date of Surgery/Procedure: 07/31/17 Time of Surgery/Procedure: 10:00
[2017-07-31] MEDS: Saccharomyces Boulardi 250 mg Cap PO SCH ×2 (12:06→21:12)
[2017-07-31] MEDS: Vitamins A & D Oint UD Foilpak TOP SCH ×2 (12:07→18:12)
[2017-07-31] MEDS: Nystatin 100,000 Units/gm Cream(15 gm) TOP SCH ×3 (12:07→18:12)
--- NOTE | 2017-07-31 19:29 | CP.PCM.PN ---
Subjective - Date & Time of Evaluation Date of Evaluation: 07/31/17 Time of Evaluation: 19:29 - Subjective Subjective: Patient is now sleeping because of the posterior procedure. He had left arm AV fistula done this morning. More sleeping at this time. But responding to deep stimuli. Currently n.p.o. On examination: Vital signs stable. Chest good air entry regular heart sound abdomen nontender Edema 1+ noted Assessment and recommendation: 77-year-old male with history of hypertension diabetes CAD hypercholesterolemia status post CABG. Pacemaker recently because of the heart block. Complicated with the metabolic encephalopathy. Stable at this time. Continue the current treatment Objective - Vital Signs/Intake and Output Vital Signs (last 24 hours): Temp Pulse Resp BP Pulse Ox 97.0 F L 82 23 127/49 L 99 07/31/17 16:00 07/31/17 19:00 07/31/17 19:00 07/31/17 18:59 07/31/17 19:00 Intake and Output: 07/31/17 08/01/17 18:59 06:59 Intake Total 410 30 Balance 410 30 - Medications Medications: Current Medications Acetaminophen (Tylenol 325mg Tab) 650 mg PO Q6 PRN PRN Reason: Fever >100.4 F Last Admin: 07/24/17 07:48 Dose: 650 mg Albuterol/Ipratropium (Duoneb 3 Mg/0.5 Mg (3 Ml) Ud) 3 ml INH RQ6 [facility] Last Admin: 07/31/17 13:41 Dose: 3 ml Artificial Tears (Artificial Tears) 0 ml OD Q3H PRN PRN Reason: Dry eyes Last Admin: 07/26/17 17:34 Dose: 1 drop Aspirin (Aspirin Chewable) 81 mg PO DAILY [facility] Last Admin: 07/28/17 17:46 Dose: Not Given Calcium Acetate (Phoslo) 667 mg PO TIDCC [facility] Last Admin: 07/31/17 17:25 Dose: 667 mg Carvedilol (Coreg) 6.25 mg PO BID [facility] Last Admin: 07/31/17 18:11 Dose: 6.25 mg Clopidogrel Bisulfate (Plavix) 75 mg PO DAILY [facility] Last Admin: 07/29/17 09:14 Dose: 75 mg Epoetin Kumar (Procrit) 10,000 unit SC MWF [facility] Last Admin: 07/30/17 18:35 Dose: 10,000 unit Famotidine (Pepcid) 20 mg PO DAILY [facility] Last Admin: 07/31/17 12:07 Dose: 20 mg Acyclovir 200 mg/ Sodium (Chloride) 100 mls @ 100 mls/hr IV Q12H [facility] PRN Reason: Protocol Stop: 08/02/17 23:59 Last Admin: 07/31/17 12:05 Dose: 100 mls/hr Vancomycin/Sodium Chloride (Vancomycin 1 Gm/Ns 200 Ml) 1 gm in 200 mls @ 166.7 mls/hr IVPB MWF [facility] PRN Reason: Protocol Stop: 08/02/17 09:01 Last Admin: 07/30/17 19:38 Dose: 166.7 mls/hr Insulin Human Regular (Novolin R) 0 unit SC Q6 [facility] PRN Reason: Protocol Last Admin: 07/31/17 18:11 Dose: 2 unit Levetiracetam (Keppra) 250 mg PO BID [facility] Last Admin: 07/31/17 18:11 Dose: 250 mg Levothyroxine Sodium (Synthroid) 50 mcg PO DAILY@0630 [facility] Last Admin: 07/31/17 06:18 Dose: 50 mcg Losartan Potassium (Cozaar) 25 mg PO DAILY [facility] Last Admin: 07/31/17 10:00 Dose: Not Given Nystatin (Mycostatin Cream) 1 ea TOP TID [facility] Last Admin: 07/31/17 18:12 Dose: 1 applic Saccharomyces Boulardii (Florastor) 250 mg PO Q12 [facility] Last Admin: 07/31/17 12:06 Dose: 250 mg Vitamin A (Vitamin A & D Oint Ud Foilpak) 1 ea TOP BID [facility] Last Admin: 07/31/17 18:12 Dose: 1 ea - Labs Labs: 07/31/17 06:21 07/31/17 06:14 PT 10.6 SECONDS (9.7-12.2) 07/31/17 06:21 INR 1.0 07/31/17 06:21 APTT 27 SECONDS (21-34) 07/31/17 06:21
[2017-07-31] MEDS ORDERED: HYDROmorphone 0.5 mg/0.5 ml ISec IVP PRN (20:03)
--- NOTE | 2017-07-31 20:26 | CP.CCUPN ---
<Tameka Chin - Last Filed: 07/31/17 20:24> CCU Subjective - Physician Review Subjective (Free Text): Patient seen and examined at bedside. Patient is alert, awake, follows commands. Went for AVF today with Dr. Davis 07/31/17 CCU Objective - Vital Signs / Intake & Output Vital Signs (Last 4 hours): Vital Signs Pulse Resp BP Pulse Ox 07/31/17 19:00 82 23 99 07/31/17 18:59 82 22 127/49 L 99 07/31/17 18:00 84 20 98 07/31/17 17:59 84 22 135/46 L 99 07/31/17 17:00 83 23 99 07/31/17 16:59 82 24 120/50 L 99 Intake and Output (Last 8hrs): Intake & Output 07/31/17 07/31/17 07/31/17 06:59 14:59 22:59 Intake Total 190 200 240 Balance 190 200 240 Weight 157 lb 13.616 oz Intake: Intake, IV Amount 100 100 0 Right Forearm 100 100 0 Oral 100 120 Tube Feeding 90 0 120 Other: # Voids Urine, Voided 0 0 # Bowel Movements 0 0 - Physical Exam Head: Positive for: Atraumatic, Normocephalic Pupils: Positive for: PERRL Extroacular Muscles: Positive for: EOMI Conjunctiva: Positive for: Normal Mouth: Positive for: Moist Mucous Membranes Nose (Internal): Positive for: Other (NGT in place) Neck: Positive for: Normal Range of Motion, Other Respiratory/Chest: Positive for: Clear to Auscultation, Good Air Exchange. Negative for: Respiratory Distress Cardiovascular: Positive for: Tachycardic, Other (Right permacath ) Abdomen: Positive for: Normal Bowel Sounds, Other (peritoneal catheter removed, dressing C/D/I) Back: Positive for: Normal Inspection Upper Extremity: Positive for: Normal Inspection, NORMAL PULSES, Neurovascularly Intact, Capillary Refill < 2s, Other (left arm AVF ). Negative for: Cyanosis, Edema, Tenderness, Swelling, Erythema Lower Extremity: Positive for: Normal Inspection, NORMAL PULSES. Negative for: Edema, CALF TENDERNESS, Tenderness, Swelling, Erythema Neurological: Positive for: Other (right facial droop ) Skin: Positive for: Warm, Dry, Normal Color. Negative for: Rashes Psychiatric: Positive for: Alert, Lethargic - Medications Active Medications: Active Medications Generic Name Dose Route Start Last Admin Trade Name Freq PRN Reason Stop Dose Admin Acetaminophen 650 mg 07/24/17 07:42 07/24/17 07:48 Tylenol 325mg Tab PO 650 mg Q6 PRN Administration Fever >100.4 F Albuterol/Ipratropium 3 ml 07/13/17 14:00 07/31/17 20:12 Duoneb 3 Mg/0.5 Mg (3 Ml) Ud INH 3 ml RQ6 JAYLA Administration Artificial Tears 0 ml 07/13/17 22:00 07/26/17 17:34 Artificial Tears OD 1 drop Q3H PRN Administration Dry eyes Aspirin 81 mg 07/15/17 10:00 07/28/17 17:46 Aspirin Chewable PO Not Given DAILY [facility] Calcium Acetate 667 mg 07/13/17 12:00 07/31/17 17:25 Phoslo PO 667 mg TIDCC JAYLA Administration Carvedilol 6.25 mg 07/23/17 18:00 07/31/17 18:11 Coreg PO 6.25 mg BID JAYLA Administration Clopidogrel Bisulfate 75 mg 07/15/17 10:00 07/29/17 09:14 Plavix PO 75 mg DAILY JAYLA Administration Epoetin Kumar 10,000 unit 07/16/17 09:00 07/30/17 18:35 Procrit SC 10,000 unit F [facility] Administration Famotidine 20 mg 07/25/17 12:15 07/31/17 12:07 Pepcid PO 20 mg DAILY JAYLA Administration Hydromorphone HCl 0.5 mg 07/31/17 20:03 Dilaudid IVP Q4H PRN Pain, severe (8-10) Acyclovir 200 mg/ Sodium 100 mls @ 100 mls/hr 07/22/17 13:00 07/31/17 12:05 Chloride IV 08/02/17 23:59 100 mls/hr Q12H JAYLA Administration Protocol Vancomycin/Sodium Chloride 1 gm in 200 mls @ 166.7 mls/hr 07/28/17 09:00 19:38 Vancomycin 1 Gm/Ns 200 Ml IVPB 08/02/17 09:01 166.7 mls/hr MWF JAYLA Administration Protocol Insulin Human Regular 0 unit 07/15/17 07:32 07/31/17 18:11 Novolin R SC 2 unit Q6 JAYLA Administration Protocol Levetiracetam 250 mg 07/24/17 18:30 07/31/17 18:11 Keppra PO 250 mg BID JAYLA Administration Levothyroxine Sodium 50 mcg 07/14/17 06:30 07/31/17 06:18 Synthroid PO 50 mcg DAILY@0630 JAYAL Administration Losartan Potassium 25 mg 07/25/17 15:00 07/31/17 10:00 Cozaar PO Not Given DAILY JAYLA Nystatin 1 ea 07/29/17 14:00 07/31/17 18:12 Mycostatin Cream TOP 1 applic TID JAYLA Administration Saccharomyces Boulardii 250 mg 07/28/17 22:00 07/31/17 12:06 Florastor PO 250 mg Q12 JAYLA Administration Vitamin A 1 ea 07/19/17 18:00 07/31/17 18:12 Vitamin A & D Oint Ud Foilpak TOP 1 ea BID JAYLA Administration - Patient Studies Lab Studies: Lab Studies 07/31/17 07/31/17 07/31/17 Range/Units 11:50 06:21 06:21 WBC 9.8 (4.8-10.8) K/uL RBC 2.81 L (4.40-5.90) Mil/uL Hgb 9.1 L (12.0-18.0) g/dL Hct 27.2 L (35.0-51.0) % MCV 96.7 H (80.0-94.0) fL MCH 32.2 H (27.0-31.0) pg MCHC 33.3 (33.0-37.0) g/dL RDW 18.6 H (11.5-14.5) % Plt Count 129 L (130-400) K/uL MPV 9.3 (7.2-11.7) fL Neut % (Auto) 76.7 H (50.0-75.0) % Lymph % (Auto) 9.2 L (20.0-40.0) % [place] % (Auto) 9.8 (0.0-10.0) % Eos % (Auto) 3.6 (0.0-4.0) % Baso % (Auto) 0.7 (0.0-2.0) % Neut # (Auto) 7.5 H (1.8-7.0) K/uL Lymph # (Auto) 0.9 L (1.0-4.3) K/uL [place] # (Auto) 1.0 H (0.0-0.8) K/uL Eos # (Auto) 0.3 (0.0-0.7) K/uL Baso # (Auto) 0.1 (0.0-0.2) K/uL Neutrophils % (Manual) 88 H (50-75) % Lymphocytes % (Manual) 6 L (20-40) % Monocytes % (Manual) 5 (0-10) % Eosinophils % (Manual) 1 (0-4) % Platelet Estimate Slightly decreased L (NORMAL) Polychromasia Slight Hypochromasia (manual) Slight Anisocytosis (manual) Slight PT 10.6 (9.7-12.2) SECONDS INR 1.0 APTT 27 (21-34) SECONDS Sodium (132-148) mmol/L Potassium (3.6-5.2) mmol/L Chloride (98-107) mmol/L Carbon Dioxide (22-30) mmol/L Anion Gap (10-20) BUN (9-20) mg/dL Creatinine (0.8-1.5) mg/dL Est GFR ( Amer) Est GFR (Non-Af Amer) POC Glucose (mg/dL) 171 H (65-110) mg/dL Random Glucose (75-110) mg/dL Calcium (8.6-10.4) mg/dl Phosphorus (2.5-4.5) mg/dL Magnesium (1.6-2.3) mg/dL Total Bilirubin (0.2-1.3) mg/dL AST (17-59) U/L ALT (21-72) U/L Alkaline Phosphatase (38-126) U/L Total Protein (6.3-8.3) g/dL Albumin (3.5-5.0) g/dL Globulin (2.2-3.9) gm/dL Albumin/Globulin Ratio (1.0-2.1) Vancomycin Trough (5.0-10.0) ug/mL 07/31/17 07/31/17 07/31/17 Range/Units 06:16 06:14 06:14 WBC (4.8-10.8) K/uL RBC (4.40-5.90) Mil/uL Hgb (12.0-18.0) g/dL Hct (35.0-51.0) % MCV (80.0-94.0) fL MCH (27.0-31.0) pg MCHC (33.0-37.0) g/dL RDW (11.5-14.5) % Plt Count (130-400) K/uL MPV (7.2-11.7) fL Neut % (Auto) (50.0-75.0) % Lymph % (Auto) (20.0-40.0) % [place] % (Auto) (0.0-10.0) % Eos % (Auto) (0.0-4.0) % Baso % (Auto) (0.0-2.0) % Neut # (Auto) (1.8-7.0) K/uL Lymph # (Auto) (1.0-4.3) K/uL [place] # (Auto) (0.0-0.8) K/uL Eos # (Auto) (0.0-0.7) K/uL Baso # (Auto) (0.0-0.2) K/uL Neutrophils % (Manual) (50-75) % Lymphocytes % (Manual) (20-40) % Monocytes % (Manual) (0-10) % Eosinophils % (Manual) (0-4) % Platelet Estimate (NORMAL) Polychromasia Hypochromasia (manual) Anisocytosis (manual) PT (9.7-12.2) SECONDS INR APTT (21-34) SECONDS Sodium 138 (132-148) mmol/L Potassium 4.7 (3.6-5.2) mmol/L Chloride 101 (98-107) mmol/L Carbon Dioxide 28 (22-30) mmol/L Anion Gap 14 (10-20) BUN 32 H (9-20) mg/dL Creatinine 4.4 H (0.8-1.5) mg/dL Est GFR ( Amer) 16 Est GFR (Non-Af Amer) 13 POC Glucose (mg/dL) 173 H (65-110) mg/dL Random Glucose 161 H (75-110) mg/dL Calcium 8.2 L (8.6-10.4) mg/dl Phosphorus 4.2 (2.5-4.5) mg/dL Magnesium 2.4 H (1.6-2.3) mg/dL Total Bilirubin 0.9 (0.2-1.3) mg/dL AST 54 (17-59) U/L ALT 35 (21-72) U/L Alkaline Phosphatase 129 H (38-126) U/L Total Protein 6.6 (6.3-8.3) g/dL Albumin 3.0 L (3.5-5.0) g/dL Globulin 3.6 (2.2-3.9) gm/dL Albumin/Globulin Ratio 0.8 L (1.0-2.1) Vancomycin Trough 29.7 H (5.0-10.0) ug/mL 07/30/17 Range/Units 23:56 WBC (4.8-10.8) K/uL RBC (4.40-5.90) Mil/uL Hgb (12.0-18.0) g/dL Hct (35.0-51.0) % MCV (80.0-94.0) fL MCH (27.0-31.0) pg MCHC (33.0-37.0) g/dL RDW (11.5-14.5) % Plt Count (130-400) K/uL MPV (7.2-11.7) fL Neut % (Auto) (50.0-75.0) % Lymph % (Auto) (20.0-40.0) % [place] % (Auto) (0.0-10.0) % Eos % (Auto) (0.0-4.0) % Baso % (Auto) (0.0-2.0) % Neut # (Auto) (1.8-7.0) K/uL Lymph # (Auto) (1.0-4.3) K/uL [place] # (Auto) (0.0-0.8) K/uL Eos # (Auto) (0.0-0.7) K/uL Baso # (Auto) (0.0-0.2) K/uL Neutrophils % (Manual) (50-75) % Lymphocytes % (Manual) (20-40) % Monocytes % (Manual) (0-10) % Eosinophils % (Manual) (0-4) % Platelet Estimate (NORMAL) Polychromasia Hypochromasia (manual) Anisocytosis (manual) PT (9.7-12.2) SECONDS INR APTT (21-34) SECONDS Sodium (132-148) mmol/L Potassium (3.6-5.2) mmol/L Chloride (98-107) mmol/L Carbon Dioxide (22-30) mmol/L Anion Gap (10-20) BUN (9-20) mg/dL Creatinine (0.8-1.5) mg/dL Est GFR ( Amer) Est GFR (Non-Af Amer) POC Glucose (mg/dL) 202 H (65-110) mg/dL Random Glucose (75-110) mg/dL Calcium (8.6-10.4) mg/dl Phosphorus (2.5-4.5) mg/dL Magnesium (1.6-2.3) mg/dL Total Bilirubin (0.2-1.3) mg/dL AST (17-59) U/L ALT (21-72) U/L Alkaline Phosphatase (38-126) U/L Total Protein (6.3-8.3) g/dL Albumin (3.5-5.0) g/dL Globulin (2.2-3.9) gm/dL Albumin/Globulin Ratio (1.0-2.1) Vancomycin Trough (5.0-10.0) ug/mL Laboratory Results - last 24 hr 07/30/17 07/31/17 07/31/17 23:56 06:14 06:14 WBC RBC Hgb Hct MCV MCH MCHC RDW Plt Count MPV Neut % (Auto) Lymph % (Auto) [place] % (Auto) Eos % (Auto) Baso % (Auto) Neut # (Auto) Lymph # (Auto) [place] # (Auto) Eos # (Auto) Baso # (Auto) Neutrophils % (Manual) Lymphocytes % (Manual) Monocytes % (Manual) Eosinophils % (Manual) Platelet Estimate Polychromasia Hypochromasia (manual) Anisocytosis (manual) PT INR APTT Sodium 138 Potassium 4.7 Chloride 101 Carbon Dioxide 28 Anion Gap 14 BUN 32 H Creatinine 4.4 H Est GFR ( Amer) 16 Est GFR (Non-Af Amer) 13 POC Glucose (mg/dL) 202 H Random Glucose 161 H Calcium 8.2 L Phosphorus 4.2 Magnesium 2.4 H Total Bilirubin 0.9 AST 54 ALT 35 Alkaline Phosphatase 129 H Total Protein 6.6 Albumin 3.0 L Globulin 3.6 Albumin/Globulin Ratio 0.8 L Vancomycin Trough 29.7 H 07/31/1718 07/31/17 06:16 06:21 06:21 WBC 9.8 RBC 2.81 L Hgb 9.1 L Hct 27.2 L MCV 96.7 H MCH 32.2 H MCHC 33.3 RDW 18.6 H Plt Count 129 L MPV 9.3 Neut % (Auto) 76.7 H Lymph % (Auto) 9.2 L [place] % (Auto) 9.8 Eos % (Auto) 3.6 Baso % (Auto) 0.7 Neut # (Auto) 7.5 H Lymph # (Auto) 0.9 L [place] # (Auto) 1.0 H Eos # (Auto) 0.3 Baso # (Auto) 0.1 Neutrophils % (Manual) 88 H Lymphocytes % (Manual) 6 L Monocytes % (Manual) 5 Eosinophils % (Manual) 1 Platelet Estimate Slightly decreased L Polychromasia Slight Hypochromasia (manual) Slight Anisocytosis (manual) Slight PT 10.6 INR 1.0 APTT 27 Sodium Potassium Chloride Carbon Dioxide Anion Gap BUN Creatinine Est GFR ( Amer) Est GFR (Non-Af Amer) POC Glucose (mg/dL) 173 H Random Glucose Calcium Phosphorus Magnesium Total Bilirubin AST ALT Alkaline Phosphatase Total Protein Albumin Globulin Albumin/Globulin Ratio Vancomycin Trough 07/31/17 11:50 WBC RBC Hgb Hct MCV MCH MCHC RDW Plt Count MPV Neut % (Auto) Lymph % (Auto) [place] % (Auto) Eos % (Auto) Baso % (Auto) Neut # (Auto) Lymph # (Auto) [place] # (Auto) Eos # (Auto) Baso # (Auto) Neutrophils % (Manual) Lymphocytes % (Manual) Monocytes % (Manual) Eosinophils % (Manual) Platelet Estimate Polychromasia Hypochromasia (manual) Anisocytosis (manual) PT INR APTT Sodium Potassium Chloride Carbon Dioxide Anion Gap BUN Creatinine Est GFR ( Amer) Est GFR (Non-Af Amer) POC Glucose (mg/dL) 171 H Random Glucose Calcium Phosphorus Magnesium Total Bilirubin AST ALT Alkaline Phosphatase Total Protein Albumin Globulin Albumin/Globulin Ratio Vancomycin Trough Fingerstick Blood Sugar Results: 187 Critical Care Progress Note - Nutrition Nutrition: Nutrition Category Date Time Status NPO Diet [DIET] Diets 07/31/17 Breakfast Active Assessment/Plan - Assessment and Plan (Free Text) Assessment: This is a 76 year old male with HTN, DM, Hypercholesterimia, CAD, CABG with 5 vessel disease, ESRD on peritoneal dialysis, with symptomatic bradycardia s/p pacemaker placed [address] Valencia, hypothyroidism, who presented to the ED on 07/28 for dysphagia and slurred speech, was diagnosed with Yu's Palsy. Patient is with persistent AMS 2/2 Metabolic Encephalopathy. Started on HD. S/P left AVF, right permacath 07/31. Plan: Neuro: - Extubated 07/27/17 - NGT in place A: Metabolic Encephalopathy Neurology consulted - Dr. 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 - Started Keppra 250mg PO BID A: Right Yu's Palsy Neurology: Dr. Thompson - on board Imaging: - Head CT: 1. Confluent area of low attenuation within the right frontal subcortical white matter suggestive for chronic ischemic change. 2. Scattered areas of chronic microvascular ischemic change. 3. Prominent ventricles. 4. No evidence of acute intracranial hemorrhage. If there is persistent concern for acute ischemic change, correlation with MRI is recommended. - Head/ Neck CTA: There is nonvisualization origin left vertebral artery. Left vertebral artery reconstitutes at approximately the lower C5 level and is seen on as a patent vessel to the level of the C2 segment where the vertebral artery is no longer visualized and appears to be occluded. Findings could represent sequela of atherosclerotic disease or dissection. Clinical correlation recommended. Right vertebral artery is patent throughout. The common carotid arteries, carotid bifurcations and internal carotid artery is widely patent. There is a calcified atherosclerotic plaque both cavernous carotid segments. The the at anterior middle and posterior cerebral arteries are patent. No evidence of large aneurysm nor vascular malformation. - Not able to have MRI - due to recent PPM placement - 07/[address]: No intracranial mass, hemorrhage or evidence of acute infarct. Right frontal encephalomalacia, possibly old MCA territory infarct. Small nonspecific right mastoid effusion. Chronic white matter ischemic change. A: Hx CVA -ASA 81mg, Plavix 75mg, Crestor 10mg Cardio: A: HTN, CAD, CABG with 5 vessel disease, with symptomatic bradycardia s/p pacemaker placed [address] Valencia - Recent ECHO performed in Dr. Elizabeth's office as outpatient - ASA 81mg, Plavix 75mg, Coreg 6.25mg PO BID, Cozaar 25mg, Crestor 10mg Pulm: A: Acute Respiratory Failure - Extubated 07/27/17 Endo: A: Hypothyroidism - Resumed Synthroid 50 mcg A: DM - Accuchecks - ISS - medium - A1C 8.4 GI: A: Cirrhosis, etiology unclear -Dr. Irvin consulted Renal: A: ESRD on HD with new L AVF, Right Permacath (MWF) --Nephrology consulted - Dr. Benson - Previously on peritoneal dialysis, removed PD catheter 07/31 - Procrit, Phoslo - S/P AVF, Right Permacath 07/31 Heme/Onc A: Anemia of Chronic Disease - Baseline hemoglobin 9s - Continue with Procrit - S/P transfused 1 unit PRBC 07/23 - Ferrlecit daily x 1 week - Stool occult- negative ID: A: Sepsis 2/2 Otitis Media with right mastoid effusion? Mastoiditis? r/o Meningitis ID consulted - Dr. Gabe Villegas - Workup up ordered - negative to date - Vanco 500mg on dialysis (07/19), and Acyclovir 400mg Q12 (07/22) - LAST DOSES Prophylaxis: - Pepcid 2/2 to steroids - Heparin during HD - Diet: NGT in place; failed swallow eval x 2 - PT/OT DW with Tameka An, PGY-1 <Elliott Corral - Last Filed: 08/02/17 19:47> CCU Objective - Vital Signs / Intake & Output Vital Signs (Last 4 hours): Vital Signs Temp Pulse Resp BP Pulse Ox 08/02/17 19:16 86 26 H 118/57 L 100 08/02/17 18:26 88 21 138/52 L 99 08/02/17 17:32 97.5 F L 91 H 23 127/50 L 08/02/17 17:26 94 H 26 H 127/50 L 08/02/17 17:03 95 H 29 H 134/54 L 99 08/02/17 17:02 98.5 F 95 H 18 134/54 L 08/02/17 16:48 95 H 22 140/56 L 99 08/02/17 16:47 98.5 F 94 H 21 140/56 L 08/02/17 16:32 98.2 F 94 H 22 131/56 L 08/02/17 16:26 96 H 26 H 131/56 L 99 08/02/17 16:00 98.5 F Intake and Output (Last 8hrs): Intake & Output 08/02/17 08/02/17 08/02/17 06:59 14:59 22:59 Intake Total 340 350 510 Output Total 0 Balance 340 350 510 Weight 154 lb 1.65 oz Intake: Intake, IV Amount 100 200 360 Right Forearm 100 200 360 Tube Feeding 240 150 150 Blood Product 0 Red Blood Cells Cpd As1 0 Lr Unit [id number] Output: Urine 0 Urine, Voided 0 Other: # Voids Urine, Voided 0 0 # Bowel Movements 0 0 - Medications Active Medications: Active Medications Generic Name Dose Route Start Last Admin Trade Name Freq PRN Reason Stop Dose Admin Acetaminophen 650 mg 07/24/17 07:42 08/02/17 00:25 Tylenol 325mg Tab PO 650 mg Q6 PRN Administration Fever >100.4 F Albuterol/Ipratropium 3 ml 07/13/17 14:00 08/02/17 13:28 Duoneb 3 Mg/0.5 Mg (3 Ml) Ud INH 3 ml RQ6 JAYLA Administration Artificial Tears 0 ml 07/13/17 22:00 08/02/17 09:32 Artificial Tears OD 1 drop Q3H PRN Administration Dry eyes Ascorbic Acid 500 mg 08/02/17 10:00 08/02/17 09:35 Vitamin C 500 Mg Tab PO 500 mg DAILY JAYLA Administration Calcium Acetate 667 mg 07/13/17 12:00 08/02/17 17:00 Phoslo PO 667 mg TIDCC JAYLA Administration Carvedilol 6.25 mg 07/23/17 18:00 08/02/17 17:00 Coreg PO 6.25 mg BID JAYLA Administration Clopidogrel Bisulfate 75 mg 07/15/17 10:00 08/02/17 09:34 Plavix PO 75 mg DAILY JAYLA Administration Epoetin Kumar 10,000 unit 07/16/17 09:00 08/01/17 12:30 Procrit SC 10,000 unit MWF JAYLA Administration Ferric Sodium Gluconate Complex 125 mg 08/01/17 13:45 08/02/17 14:52 Ferrlecit IVPB 08/09/17 13:46 125 mg DAILY JAYLA Administration Folic Acid 1 mg 08/02/17 10:00 08/02/17 09:33 Folic Acid PO 1 mg DAILY JAYLA Administration Acyclovir 200 mg/ Sodium 100 mls @ 100 mls/hr 07/22/17 13:00 08/02/17 13:58 Chloride IV 08/02/17 23:59 100 mls/hr Q12H JAYLA Administration Protocol Insulin Human Regular 0 unit 07/15/17 07:32 08/02/17 17:58 Novolin R SC 2 unit Q6 JAYLA Administration Protocol Levothyroxine Sodium 50 mcg 07/14/17 06:30 08/02/17 06:15 Synthroid PO 50 mcg DAILY@0630 JAYLA Administration Losartan Potassium 25 mg 07/25/17 15:00 08/02/17 09:32 Cozaar PO Not Given DAILY [facility] Multivitamins/Vitamin C 5 ml 08/02/17 10:00 08/02/17 09:33 Multi-Delyn Liquid PO 5 ml DAILY JAYLA Administration Nystatin 1 ea 07/29/17 14:00 08/02/17 17:00 Mycostatin Cream TOP 1 applic TID JAYLA Administration Pantoprazole Sodium 40 mg 08/02/17 11:45 08/02/17 12:32 Protonix Inj IVP Not Given Q12 JAYLA Saccharomyces Boulardii 250 mg 07/28/17 22:00 08/02/17 09:32 Florastor PO 250 mg Q12 JAYLA Administration Thiamine HCl 100 mg 08/02/17 10:00 08/02/17 09:34 Vitamin B1 Tab PO 100 mg DAILY JAYLA Administration Vitamin A 1 ea 07/19/17 18:00 08/02/17 17:00 Vitamin A & D Oint Ud Foilpak TOP 1 ea BID JAYLA Administration Zinc Sulfate 220 mg 08/02/17 10:00 08/02/17 09:35 Zinc Sulfate 220 Mg Cap PO 220 mg DAILY JAYLA Administration - Patient Studies Lab Studies: Lab Studies 08/02/17 08/02/17 08/02/17 Range/Units 17:42 12:15 11:52 WBC (4.8-10.8) K/uL RBC (4.40-5.90) Mil/uL Hgb (12.0-18.0) g/dL Hct (35.0-51.0) % MCV (80.0-94.0) fL MCH (27.0-31.0) pg MCHC (33.0-37.0) g/dL RDW (11.5-14.5) % Plt Count (130-400) K/uL MPV (7.2-11.7) fL Neut % (Auto) (50.0-75.0) % Lymph % (Auto) (20.0-40.0) % [place] % (Auto) (0.0-10.0) % Eos % (Auto) (0.0-4.0) % Baso % (Auto) (0.0-2.0) % Neut # (Auto) (1.8-7.0) K/uL Lymph # (Auto) (1.0-4.3) K/uL [place] # (Auto) (0.0-0.8) K/uL Eos # (Auto) (0.0-0.7) K/uL Baso # (Auto) (0.0-0.2) K/uL Sodium (132-148) mmol/L Potassium (3.6-5.2) mmol/L Chloride (98-107) mmol/L Carbon Dioxide (22-30) mmol/L Anion Gap (10-20) BUN (9-20) mg/dL Creatinine (0.8-1.5) mg/dL Est GFR ( Amer) Est GFR (Non-Af Amer) POC Glucose (mg/dL) 171 H 116 H (65-110) mg/dL Random Glucose (75-110) mg/dL Calcium (8.6-10.4) mg/dl Phosphorus (2.5-4.5) mg/dL Magnesium (1.6-2.3) mg/dL Total Bilirubin (0.2-1.3) mg/dL AST (17-59) U/L ALT (21-72) U/L Alkaline Phosphatase (38-126) U/L Total Protein (6.3-8.3) g/dL Albumin (3.5-5.0) g/dL Globulin (2.2-3.9) gm/dL Albumin/Globulin Ratio (1.0-2.1) Blood Type B POSITIVE Antibody Screen Negative 08/02/17 08/02/17 08/02/17 Range/Units 10:41 10:41 06:07 WBC 10.1 (4.8-10.8) K/uL RBC 2.36 L (4.40-5.90) Mil/uL Hgb 7.7 L (12.0-18.0) g/dL Hct 23.0 L (35.0-51.0) % MCV 97.4 H (80.0-94.0) fL MCH 32.5 H (27.0-31.0) pg MCHC 33.4 (33.0-37.0) g/dL RDW 19.9 H (11.5-14.5) % Plt Count 179 (130-400) K/uL MPV 7.9 (7.2-11.7) fL Neut % (Auto) 71.0 (50.0-75.0) % Lymph % (Auto) 14.4 L (20.0-40.0) % [place] % (Auto) 10.9 H (0.0-10.0) % Eos % (Auto) 2.9 (0.0-4.0) % Baso % (Auto) 0.8 (0.0-2.0) % Neut # (Auto) 7.1 H (1.8-7.0) K/uL Lymph # (Auto) 1.4 (1.0-4.3) K/uL [place] # (Auto) 1.1 H (0.0-0.8) K/uL Eos # (Auto) 0.3 (0.0-0.7) K/uL Baso # (Auto) 0.1 (0.0-0.2) K/uL Sodium 141 (132-148) mmol/L Potassium 3.8 (3.6-5.2) mmol/L Chloride 101 (98-107) mmol/L Carbon Dioxide 33 H (22-30) mmol/L Anion Gap 10 (10-20) BUN 25 H (9-20) mg/dL Creatinine 3.9 H (0.8-1.5) mg/dL Est GFR ( Amer) 18 Est GFR (Non-Af Amer) 15 POC Glucose (mg/dL) 222 H (65-110) mg/dL Random Glucose 157 H (75-110) mg/dL Calcium 7.9 L (8.6-10.4) mg/dl Phosphorus 3.1 (2.5-4.5) mg/dL Magnesium 2.3 (1.6-2.3) mg/dL Total Bilirubin 0.5 (0.2-1.3) mg/dL AST 33 (17-59) U/L ALT 28 (21-72) U/L Alkaline Phosphatase 112 (38-126) U/L Total Protein 5.6 L (6.3-8.3) g/dL Albumin 2.6 L (3.5-5.0) g/dL Globulin 3.1 (2.2-3.9) gm/dL Albumin/Globulin Ratio 0.8 L (1.0-2.1) Blood Type Antibody Screen 08/01/17 Range/Units 23:19 WBC (4.8-10.8) K/uL RBC (4.40-5.90) Mil/uL Hgb (12.0-18.0) g/dL Hct (35.0-51.0) % MCV (80.0-94.0) fL MCH (27.0-31.0) pg MCHC (33.0-37.0) g/dL RDW (11.5-14.5) % Plt Count (130-400) K/uL MPV (7.2-11.7) fL Neut % (Auto) (50.0-75.0) % Lymph % (Auto) (20.0-40.0) % [place] % (Auto) (0.0-10.0) % Eos % (Auto) (0.0-4.0) % Baso % (Auto) (0.0-2.0) % Neut # (Auto) (1.8-7.0) K/uL Lymph # (Auto) (1.0-4.3) K/uL [place] # (Auto) (0.0-0.8) K/uL Eos # (Auto) (0.0-0.7) K/uL Baso # (Auto) (0.0-0.2) K/uL Sodium (132-148) mmol/L Potassium (3.6-5.2) mmol/L Chloride (98-107) mmol/L Carbon Dioxide (22-30) mmol/L Anion Gap (10-20) BUN (9-20) mg/dL Creatinine (0.8-1.5) mg/dL Est GFR ( Amer) Est GFR (Non-Af Amer) POC Glucose (mg/dL) 149 H (65-110) mg/dL Random Glucose (75-110) mg/dL Calcium (8.6-10.4) mg/dl Phosphorus (2.5-4.5) mg/dL Magnesium (1.6-2.3) mg/dL Total Bilirubin (0.2-1.3) mg/dL AST (17-59) U/L ALT (21-72) U/L Alkaline Phosphatase (38-126) U/L Total Protein (6.3-8.3) g/dL Albumin (3.5-5.0) g/dL Globulin (2.2-3.9) gm/dL Albumin/Globulin Ratio (1.0-2.1) Blood Type Antibody Screen Laboratory Results - last 24 hr 08/01/17 08/02/17 08/02/17 23:19 06:07 10:41 WBC 10.1 RBC 2.36 L Hgb 7.7 L Hct 23.0 L MCV 97.4 H MCH 32.5 H MCHC 33.4 RDW 19.9 H Plt Count 179 MPV 7.9 Neut % (Auto) 71.0 Lymph % (Auto) 14.4 L [place] % (Auto) 10.9 H Eos % (Auto) 2.9 Baso % (Auto) 0.8 Neut # (Auto) 7.1 H Lymph # (Auto) 1.4 [place] # (Auto) 1.1 H Eos # (Auto) 0.3 Baso # (Auto) 0.1 Sodium Potassium Chloride Carbon Dioxide Anion Gap BUN Creatinine Est GFR ( Amer) Est GFR (Non-Af Amer) POC Glucose (mg/dL) 149 H 222 H Random Glucose Calcium Phosphorus Magnesium Total Bilirubin AST ALT Alkaline Phosphatase Total Protein Albumin Globulin Albumin/Globulin Ratio Blood Type Antibody Screen 08/02/17 08/02/17 08/02/17 10:41 11:52 12:15 WBC RBC Hgb Hct MCV MCH MCHC RDW Plt Count MPV Neut % (Auto) Lymph % (Auto) [place] % (Auto) Eos % (Auto) Baso % (Auto) Neut # (Auto) Lymph # (Auto) [place] # (Auto) Eos # (Auto) Baso # (Auto) Sodium 141 Potassium 3.8 Chloride 101 Carbon Dioxide 33 H Anion Gap 10 BUN 25 H Creatinine 3.9 H Est GFR ( Amer) 18 Est GFR (Non-Af Amer) 15 POC Glucose (mg/dL) 116 H Random Glucose 157 H Calcium 7.9 L Phosphorus 3.1 Magnesium 2.3 Total Bilirubin 0.5 AST 33 ALT 28 Alkaline Phosphatase 112 Total Protein 5.6 L Albumin 2.6 L Globulin 3.1 Albumin/Globulin Ratio 0.8 L Blood Type B POSITIVE Antibody Screen Negative 08/02/17 17:42 WBC RBC Hgb Hct MCV MCH MCHC RDW Plt Count MPV Neut % (Auto) Lymph % (Auto) [place] % (Auto) Eos % (Auto) Baso % (Auto) Neut # (Auto) Lymph # (Auto) [place] # (Auto) Eos # (Auto) Baso # (Auto) Sodium Potassium Chloride Carbon Dioxide Anion Gap BUN Creatinine Est GFR ( Amer) Est GFR (Non-Af Amer) POC Glucose (mg/dL) 171 H Random Glucose Calcium Phosphorus Magnesium Total Bilirubin AST ALT Alkaline Phosphatase Total Protein Albumin Globulin Albumin/Globulin Ratio Blood Type Antibody Screen Critical Care Progress Note - Nutrition Nutrition: Nutrition Category Date Time Status NPO Diet [DIET] Diets 07/31/17 Breakfast Active Attending/Attestation - Attestation I have personally seen and examined this patient.: Yes I have fully participated in the care of the patient.: Yes I have reviewed all pertinent clinical information: Yes Notes (Text): 07/31/17 Today: , July 31, 2017 The Patient was seen and examined at the bedside, Medical records reviewed, and management issues were discussed and formulated with the house staff. I have reviewed all the relevant clinical, laboratory, hemodynamic, radiographic data and medications Events reviewed Pain issues, skin care, head of the bed elevation, glycemic control were addressed. Agree with above resident's assessment and treatment plans of care as transcribed in Dr. Chin note.
--- NOTE | 2017-07-31 21:57 | CP.PCM.PN ---
Subjective - Date & Time of Evaluation Date of Evaluation: 07/31/17 Time of Evaluation: 21:57 - Subjective Subjective: Patient seen and examined at bedside. AFEBRILE Patient is alert, awake, follows commands. Went for AVF today with Dr. Davis 07/31/17 . CASE DISCUSSED WITH RESIDENT DR AUGUSTIN. LABS -NOTED Objective - Vital Signs/Intake and Output Vital Signs (last 24 hours): Temp Pulse Resp BP Pulse Ox 97.5 F L 82 23 127/49 L 99 07/31/17 20:00 07/31/17 19:00 07/31/17 19:00 07/31/17 18:59 07/31/17 19:00 Intake and Output: 07/31/17 08/01/17 18:59 06:59 Intake Total 410 30 Balance 410 30 - Medications Medications: Current Medications Acetaminophen (Tylenol 325mg Tab) 650 mg PO Q6 PRN PRN Reason: Fever >100.4 F Last Admin: 07/24/17 07:48 Dose: 650 mg Albuterol/Ipratropium (Duoneb 3 Mg/0.5 Mg (3 Ml) Ud) 3 ml INH RQ6 [facility] Last Admin: 07/31/17 20:12 Dose: 3 ml Artificial Tears (Artificial Tears) 0 ml OD Q3H PRN PRN Reason: Dry eyes Last Admin: 07/26/17 17:34 Dose: 1 drop Aspirin (Aspirin Chewable) 81 mg PO DAILY [facility] Last Admin: 07/28/17 17:46 Dose: Not Given Calcium Acetate (Phoslo) 667 mg PO TIDCC [facility] Last Admin: 07/31/17 17:25 Dose: 667 mg Carvedilol (Coreg) 6.25 mg PO BID [facility] Last Admin: 07/31/17 18:11 Dose: 6.25 mg Clopidogrel Bisulfate (Plavix) 75 mg PO DAILY [facility] Last Admin: 07/29/17 09:14 Dose: 75 mg Epoetin Kumar (Procrit) 10,000 unit SC MWF [facility] Last Admin: 07/30/17 18:35 Dose: 10,000 unit Famotidine (Pepcid) 20 mg PO DAILY [facility] Last Admin: 07/31/17 12:07 Dose: 20 mg Hydromorphone HCl (Dilaudid) 0.5 mg IVP Q4H PRN PRN Reason: Pain, severe (8-10) Acyclovir 200 mg/ Sodium (Chloride) 100 mls @ 100 mls/hr IV Q12H [facility] PRN Reason: Protocol Stop: 08/02/17 23:59 Last Admin: 07/31/17 12:05 Dose: 100 mls/hr Vancomycin/Sodium Chloride (Vancomycin 1 Gm/Ns 200 Ml) 1 gm in 200 mls @ 166.7 mls/hr IVPB MWF [facility] PRN Reason: Protocol Stop: 08/02/17 09:01 Last Admin: 07/30/17 19:38 Dose: 166.7 mls/hr Insulin Human Regular (Novolin R) 0 unit SC Q6 [facility] PRN Reason: Protocol Last Admin: 07/31/17 18:11 Dose: 2 unit Levetiracetam (Keppra) 250 mg PO BID [facility] Last Admin: 07/31/17 18:11 Dose: 250 mg Levothyroxine Sodium (Synthroid) 50 mcg PO DAILY@0630 [facility] Last Admin: 07/31/17 06:18 Dose: 50 mcg Losartan Potassium (Cozaar) 25 mg PO DAILY [facility] Last Admin: 07/31/17 10:00 Dose: Not Given Nystatin (Mycostatin Cream) 1 ea TOP TID [facility] Last Admin: 07/31/17 18:12 Dose: 1 applic Saccharomyces Boulardii (Florastor) 250 mg PO Q12 [facility] Last Admin: 07/31/17 21:12 Dose: 250 mg Vitamin A (Vitamin A & D Oint Ud Foilpak) 1 ea TOP BID [facility] Last Admin: 07/31/17 18:12 Dose: 1 ea - Labs Labs: 07/31/17 06:21 07/31/17 06:14 PT 10.6 SECONDS (9.7-12.2) 07/31/17 06:21 INR 1.0 07/31/17 06:21 APTT 27 SECONDS (21-34) 07/31/17 06:21 - Constitutional Appears: No Acute Distress - Head Exam Head Exam: NORMAL INSPECTION - Eye Exam Eye Exam: EOMI, PERRL - ENT Exam ENT Exam: Normal Oropharynx - Neck Exam Neck Exam: Normal Inspection - Respiratory Exam Respiratory Exam: Decreased Breath Sounds - Cardiovascular Exam Cardiovascular Exam: REGULAR RHYTHM, +S1, +S2 - GI/Abdominal Exam GI & Abdominal Exam: Soft, Normal Bowel Sounds (+VE PEG.) - Extremities Exam Extremities Exam: absent: Calf Tenderness, Pedal Edema - Neurological Exam Neurological Exam: Alert, Awake, CN II-XII Intact (RT.BELLS PALSY.) - Psychiatric Exam Psychiatric exam: Normal Affect - Skin Skin Exam: Normal Color, Warm Assessment and Plan (1) Toxic metabolic encephalopathy Assessment & Plan: ON IV VANCOMYCIN 1GM POST HD MWF. 07/17/17 - TO DC AFTER HD IN AM ON IV ACYCLOVIR 200 MG EVERY 12 HOURLY- 07/20/17-DAY 12 FOR 2 DAYS MORE . OFF IV MERREM Status: Acute (2) Yu palsy Status: Acute (3) Type 2 diabetes mellitus with diabetic nephropathy Status: Acute (4) ESRD (end stage renal disease) Assessment & Plan: ON HD MWF S/P AVF 07/31/17 Status: Acute (5) Heart block AV complete Status: Acute
--- NOTE | 2017-07-31 23:21 | OP ---
PROCEDURE DATE: 07/31/2017 PREOPERATIVE DIAGNOSIS: Renal failure. POSTOPERATIVE DIAGNOSIS: Renal failure. PROCEDURE CARRIED OUT: 1. Removal of Tenckhoff peritoneal dialysis catheter, which had previously been placed. 2. Placement of Perm-A-Cath, right subclavian vein. 3. Brachial mid to median antecubital vein fistula at the left elbow. SURGEON: Marcello Davis Jr., MD ENERGY SCHEDULER: ANESTHESIOLOGIST: Mr. Reyez. INDICATIONS: The patient is an elderly male with multiple medical problems, previously on peritoneal dialysis, now on hemodialysis. OPERATIVE FINDINGS: 1. The peritoneal dialysis catheter was removed. 2. We removed the old subclavian dialysis catheter, put a wire to the hole, placed a new catheter and tunneled down the right chest wall. Thus, this is the catheter that originates on the right chest wall through the right subclavian vein into the superior vena cava. 3. We then created a fistula at the left elbow between the brachial artery and the adjacent median antecubital vein. The result of this, we broke up into the cephalic vein, which was seen on ultrasound to be adequate and the adjacent basilic vein. This should prove adequate, but this will take time to return. At the end of the procedure, we had good Doppler signals over both the radial and ulnar at the wrist, and there were no palpable pulses prior to beginning the procedure. Prior to clamping the vessels, we gave heparin, we used loupe magnification for the anastomosis. OPERATIONS CARRIED OUT: 1. Removal of peritoneal dialysis catheter. 2. Placement of subclavian dialysis catheter, Perm-A-Cath tunneled catheter. 3. Brachial to median antecubital vein fistula, left elbow. Marcello Davis Jr., MD cc: Owen Benson MD
--- NOTE | 2017-07-31 23:32 | CP.PCM.PN ---
Subjective - Date & Time of Evaluation Date of Evaluation: 07/31/17 Time of Evaluation: 14:05 - Subjective Subjective: Patient seen and evaluated No cardiac events noted Objective - Vital Signs/Intake and Output Vital Signs (last 24 hours): Temp Pulse Resp BP Pulse Ox 97.5 F L 82 23 127/49 L 99 07/31/17 20:00 07/31/17 19:00 07/31/17 19:00 07/31/17 18:59 07/31/17 19:00 Intake and Output: 07/31/17 08/01/17 18:59 06:59 Intake Total 410 250 Balance 410 250 - Medications Medications: Current Medications Acetaminophen (Tylenol 325mg Tab) 650 mg PO Q6 PRN PRN Reason: Fever >100.4 F Last Admin: 07/24/17 07:48 Dose: 650 mg Albuterol/Ipratropium (Duoneb 3 Mg/0.5 Mg (3 Ml) Ud) 3 ml INH RQ6 [facility] Last Admin: 07/31/17 20:12 Dose: 3 ml Artificial Tears (Artificial Tears) 0 ml OD Q3H PRN PRN Reason: Dry eyes Last Admin: 07/26/17 17:34 Dose: 1 drop Aspirin (Aspirin Chewable) 81 mg PO DAILY [facility] Last Admin: 07/28/17 17:46 Dose: Not Given Calcium Acetate (Phoslo) 667 mg PO TIDCC [facility] Last Admin: 07/31/17 17:25 Dose: 667 mg Carvedilol (Coreg) 6.25 mg PO BID [facility] Last Admin: 07/31/17 18:11 Dose: 6.25 mg Clopidogrel Bisulfate (Plavix) 75 mg PO DAILY [facility] Last Admin: 07/29/17 09:14 Dose: 75 mg Epoetin Kumar (Procrit) 10,000 unit SC MWF [facility] Last Admin: 07/30/17 18:35 Dose: 10,000 unit Famotidine (Pepcid) 20 mg PO DAILY [facility] Last Admin: 07/31/17 12:07 Dose: 20 mg Hydromorphone HCl (Dilaudid) 0.5 mg IVP Q4H PRN PRN Reason: Pain, severe (8-10) Acyclovir 200 mg/ Sodium (Chloride) 100 mls @ 100 mls/hr IV Q12H [facility] PRN Reason: Protocol Stop: 08/02/17 23:59 Last Admin: 07/31/17 12:05 Dose: 100 mls/hr Vancomycin/Sodium Chloride (Vancomycin 1 Gm/Ns 200 Ml) 1 gm in 200 mls @ 166.7 mls/hr IVPB MWF [facility] PRN Reason: Protocol Stop: 08/02/17 09:01 Last Admin: 07/30/17 19:38 Dose: 166.7 mls/hr Insulin Human Regular (Novolin R) 0 unit SC Q6 [facility] PRN Reason: Protocol Last Admin: 07/31/17 18:11 Dose: 2 unit Levetiracetam (Keppra) 250 mg PO BID [facility] Last Admin: 07/31/17 18:11 Dose: 250 mg Levothyroxine Sodium (Synthroid) 50 mcg PO DAILY@30 [facility] Last Admin: 07/31/17 06:18 Dose: 50 mcg Losartan Potassium (Cozaar) 25 mg PO DAILY [facility] Last Admin: 07/31/17 10:00 Dose: Not Given Nystatin (Mycostatin Cream) 1 ea TOP TID [facility] Last Admin: 07/31/17 18:12 Dose: 1 applic Saccharomyces Boulardii (Florastor) 250 mg PO Q12 [facility] Last Admin: 07/31/17 21:12 Dose: 250 mg Vitamin A (Vitamin A & D Oint Ud Foilpak) 1 ea TOP BID [facility] Last Admin: 07/31/17 18:12 Dose: 1 ea - Labs Labs: 07/31/17 06:21 07/31/17 06:14 PT 10.6 SECONDS (9.7-12.2) 07/31/17 06:21 INR 1.0 07/31/17 06:21 APTT 27 SECONDS (21-34) 07/31/17 06:21
[2017-08-01] MEDS: (Novolin R) Insulin Human Regular 100 units/ml vial SC SCH ×4 (00:36→18:43)
[2017-08-01] MEDS: Albuterol-Ipratrop 3 mg / 0.5 (3 ml) UD INH SCH ×4 (01:26→20:45)
[2017-08-01] MEDS: Levothyroxine 50 MCG TAB PO SCH (06:07)
[2017-08-01 06:52] LABS: BASO # 0.1 K/uL (0.0-0.2); BASO % 0.9 % (0.0-2.0); EOS # 0.3 K/uL (0.0-0.7); HEMOGLOBIN 8.3 g/dL (12.0-18.0); LYMPH # 1.3 K/uL (1.0-4.3); LYMPH % 12.9 % (20.0-40.0); MEAN CORPUSCULAR HEMOGLOBIN 32.2 pg (27.0-31.0); MEAN CORPUSCULAR HGB CONC 33.2 g/dL (33.0-37.0); MEAN PLATELET VOLUME 9.2 fL (7.2-11.7); MONO # 1.1 K/uL (0.0-0.8); MONO % 10.3 % (0.0-10.0); NEUT # 7.5 K/uL (1.8-7.0); NEUT % 72.9 % (50.0-75.0); NRBC % 0.1 % (0.0-2.0); RBC 2.58 Mil/uL (4.40-5.90); RED CELL DISTRIBUTION WIDTH 18.5 % (11.5-14.5); WHITE BLOOD COUNT 10.3 K/uL (4.8-10.8)
[2017-08-01 07:04] LABS: ALB/GLOB RATIO 0.9 (1.0-2.1); ALBUMIN 2.8 g/dL (3.5-5.0)
--- NOTE | 2017-08-01 08:12 | CP.PCM.PN ---
Subjective - Date & Time of Evaluation Date of Evaluation: 08/01/17 Time of Evaluation: 08:11 - Subjective Subjective: SURGERY NOTE FOR DR. NAJERA 77M seen and examined at bedside. Patient resting comfortably. Left AVF dressing clean dry intact, Palpable thrill. Site of permacath is clean dry intact. Objective - Vital Signs/Intake and Output Vital Signs (last 24 hours): Temp Pulse Resp BP Pulse Ox 98.4 F 91 H 21 145/55 L 99 08/01/17 08:00 08/01/17 07:00 08/01/17 07:00 08/01/17 06:59 08/01/17 08:00 Intake and Output: 08/01/17 08/01/17 06:59 18:59 Intake Total 610 30 Output Total 0 Balance 610 30 - Medications Medications: Current Medications Acetaminophen (Tylenol 325mg Tab) 650 mg PO Q6 PRN PRN Reason: Fever >100.4 F Last Admin: 07/24/17 07:48 Dose: 650 mg Albuterol/Ipratropium (Duoneb 3 Mg/0.5 Mg (3 Ml) Ud) 3 ml INH RQ6 [facility] Last Admin: 08/01/17 07:22 Dose: 3 ml Artificial Tears (Artificial Tears) 0 ml OD Q3H PRN PRN Reason: Dry eyes Last Admin: 07/26/17 17:34 Dose: 1 drop Aspirin (Aspirin Chewable) 81 mg PO DAILY [facility] Last Admin: 07/28/17 17:46 Dose: Not Given Calcium Acetate (Phoslo) 667 mg PO TIDCC [facility] Last Admin: 07/31/17 17:25 Dose: 667 mg Carvedilol (Coreg) 6.25 mg PO BID [facility] Last Admin: 07/31/17 18:11 Dose: 6.25 mg Clopidogrel Bisulfate (Plavix) 75 mg PO DAILY [facility] Last Admin: 07/29/17 09:14 Dose: 75 mg Epoetin Kumar (Procrit) 10,000 unit SC MWF [facility] Last Admin: 07/30/17 18:35 Dose: 10,000 unit Famotidine (Pepcid) 20 mg PO DAILY [facility] Last Admin: 07/31/17 12:07 Dose: 20 mg Hydromorphone HCl (Dilaudid) 0.5 mg IVP Q4H PRN PRN Reason: Pain, severe (8-10) Acyclovir 200 mg/ Sodium (Chloride) 100 mls @ 100 mls/hr IV Q12H [facility] PRN Reason: Protocol Stop: 08/02/17 23:59 Last Admin: 08/01/17 00:37 Dose: 100 mls/hr Vancomycin/Sodium Chloride (Vancomycin 1 Gm/Ns 200 Ml) 1 gm in 200 mls @ 166.7 mls/hr IVPB MWF [facility] PRN Reason: Protocol Stop: 08/02/17 09:01 Last Admin: 07/30/17 19:38 Dose: 166.7 mls/hr Insulin Human Regular (Novolin R) 0 unit SC Q6 [facility] PRN Reason: Protocol Last Admin: 08/01/17 06:07 Dose: 2 unit Levetiracetam (Keppra) 250 mg PO BID [facility] Last Admin: 07/31/17 18:11 Dose: 250 mg Levothyroxine Sodium (Synthroid) 50 mcg PO DAILY@0630 [facility] Last Admin: 08/01/17 06:07 Dose: 50 mcg Losartan Potassium (Cozaar) 25 mg PO DAILY [facility] Last Admin: 07/31/17 10:00 Dose: Not Given Nystatin (Mycostatin Cream) 1 ea TOP TID [facility] Last Admin: 07/31/17 18:12 Dose: 1 applic Saccharomyces Boulardii (Florastor) 250 mg PO Q12 [facility] Last Admin: 07/31/17 21:12 Dose: 250 mg Vitamin A (Vitamin A & D Oint Ud Foilpak) 1 ea TOP BID [facility] Last Admin: 07/31/17 18:12 Dose: 1 ea - Labs Labs: 08/01/17 06:39 08/01/17 06:40 PT 10.6 SECONDS (9.7-12.2) 07/31/17 06:21 INR 1.0 07/31/17 06:21 APTT 27 SECONDS (21-34) 07/31/17 06:21 - Neck Exam Additional comments: right subclavian permacath dressing clean dry intact - Respiratory Exam Respiratory Exam: Clear to Ausculation Bilateral, NORMAL BREATHING PATTERN - Cardiovascular Exam Cardiovascular Exam: REGULAR RHYTHM, +S1, +S2 - Extremities Exam Additional comments: left arm dressing clean dry intact palpable thrill - Neurological Exam Neurological Exam: Alert, Awake - Skin Skin Exam: Dry, Intact, Normal Color, Warm Assessment and Plan - Assessment and Plan (Free Text) Assessment: 77M s/p right subclavian permacath placement and left AVF placement POD1 Plan: - Monitor dressings - await maturity of AVF - Use permacath for dialysis Further recs discuss with Dr. Susan Petty, PGY2
[2017-08-01] MEDS: Aritificial Tears (15ml) OD PRN (09:08)
[2017-08-01] MEDS: Nystatin 100,000 Units/gm Cream(15 gm) TOP SCH ×3 (09:11→17:04)
[2017-08-01] MEDS: Saccharomyces Boulardi 250 mg Cap PO SCH ×2 (10:00→21:14)
--- NOTE | 2017-08-01 10:35 | CP.CCUPN ---
<Tameka Chin - Last Filed: 08/01/17 10:27> CCU Subjective - Physician Review Subjective (Free Text): Patient seen and examined at bedside. Patient is alert, awake, follows commands. Still failing bedside swallow. CCU Objective - Vital Signs / Intake & Output Vital Signs (Last 4 hours): Vital Signs Temp Pulse Resp BP Pulse Ox 08/01/17 08:00 98.4 F 99 08/01/17 07:00 91 H 21 100 08/01/17 06:59 92 H 20 145/55 L 100 Intake and Output (Last 8hrs): Intake & Output 07/31/17 08/01/17 08/01/17 22:59 06:59 14:59 Intake Total 430 390 30 Output Total 0 Balance 430 390 30 Weight 159 lb 6.307 oz Intake: Intake, IV Amount 0 100 Right Forearm 0 100 Oral 120 Tube Feeding 210 240 30 Other 100 50 Output: Urine 0 Urine, Voided 0 Other: # Voids Urine, Voided 0 # Bowel Movements 0 - Physical Exam Head: Positive for: Atraumatic, Normocephalic Pupils: Positive for: PERRL Extroacular Muscles: Positive for: EOMI Conjunctiva: Positive for: Normal Mouth: Positive for: Moist Mucous Membranes Pharnyx: Positive for: Uvular Deviation (right) Nose (Internal): Positive for: Other (NGT in place) Neck: Positive for: Normal Range of Motion, Other Respiratory/Chest: Positive for: Clear to Auscultation, Good Air Exchange. Negative for: Respiratory Distress Cardiovascular: Positive for: Tachycardic, Other (Right permacath ) Abdomen: Positive for: Normal Bowel Sounds, Other (peritoneal catheter removed, dressing C/D/I) Back: Positive for: Normal Inspection Upper Extremity: Positive for: Normal Inspection, NORMAL PULSES, Neurovascularly Intact, Capillary Refill < 2s, Other (left arm AVF ). Negative for: Cyanosis, Edema, Tenderness, Swelling, Erythema Lower Extremity: Positive for: Normal Inspection, NORMAL PULSES. Negative for: Edema, CALF TENDERNESS, Tenderness, Swelling, Erythema Neurological: Positive for: Other (right facial droop ) Skin: Positive for: Warm, Dry, Normal Color. Negative for: Rashes Psychiatric: Positive for: Alert, Lethargic - Medications Active Medications: Active Medications Generic Name Dose Route Start Last Admin Trade Name Freq PRN Reason Stop Dose Admin Acetaminophen 650 mg 07/24/17 07:42 07/24/17 07:48 Tylenol 325mg Tab PO 650 mg Q6 PRN Administration Fever >100.4 F Acetylcysteine 4 ml 08/01/17 14:00 Acetylcysteine 20% INH 08/02/17 08:01 RQ6 JAYLA Albuterol/Ipratropium 3 ml 07/13/17 14:00 08/01/17 07:22 Duoneb 3 Mg/0.5 Mg (3 Ml) Ud INH 3 ml RQ6 JAYLA Administration Artificial Tears 0 ml 07/13/17 22:00 08/01/17 09:08 Artificial Tears OD 1 drop Q3H PRN Administration Dry eyes Aspirin 81 mg 07/15/17 10:00 08/01/17 09:01 Aspirin Chewable PO 81 mg DAILY JAYLA Administration Calcium Acetate 667 mg 07/13/17 12:00 08/01/17 09:02 Phoslo PO 667 mg TIDCC JAYLA Administration Carvedilol 6.25 mg 07/23/17 18:00 07/31/17 18:11 Coreg PO 6.25 mg BID JAYLA Administration Clopidogrel Bisulfate 75 mg 07/15/17 10:00 08/01/17 09:02 Plavix PO 75 mg DAILY JAYLA Administration Epoetin Kumar 10,000 unit 07/16/17 09:00 07/30/17 18:35 Procrit SC 10,000 unit F [facility] Administration Famotidine 20 mg 07/25/17 12:15 08/01/17 09:10 Pepcid PO 20 mg DAILY JAYLA Administration Hydromorphone HCl 0.5 mg 07/31/17 20:03 Dilaudid IVP Q4H PRN Pain, severe (8-10) Acyclovir 200 mg/ Sodium 100 mls @ 100 mls/hr 07/22/17 13:00 08/01/17 00:37 Chloride IV 08/02/17 23:59 100 mls/hr Q12H JAYLA Administration Protocol Vancomycin/Sodium Chloride 1 gm in 200 mls @ 166.7 mls/hr 07/28/17 09:00 19:38 Vancomycin 1 Gm/Ns 200 Ml IVPB 08/02/17 09:01 166.7 mls/hr MWF JAYLA Administration Protocol Insulin Human Regular 0 unit 07/15/17 07:32 08/01/17 06:07 Novolin R SC 2 unit Q6 JAYLA Administration Protocol Levetiracetam 250 mg 07/24/17 18:30 08/01/17 09:02 Keppra PO 250 mg BID JAYLA Administration Levothyroxine Sodium 50 mcg 07/14/17 06:30 08/01/17 06:07 Synthroid PO 50 mcg DAILY@0630 JAYLA Administration Losartan Potassium 25 mg 07/25/17 15:00 07/31/17 10:00 Cozaar PO Not Given DAILY JAYLA Nystatin 1 ea 07/29/17 14:00 08/01/17 09:11 Mycostatin Cream TOP 1 applic TID JAYLA Administration Saccharomyces Boulardii 250 mg 07/28/17 22:00 07/31/17 21:12 Florastor PO 250 mg Q12 JAYLA Administration Vitamin A 1 ea 07/19/17 18:00 07/31/17 18:12 Vitamin A & D Oint Ud Foilpak TOP 1 ea BID JAYLA Administration - Patient Studies Lab Studies: Lab Studies 08/01/17 08/01/17 08/01/17 Range/Units 06:40 06:39 04:52 WBC 10.3 (4.8-10.8) K/uL RBC 2.58 L (4.40-5.90) Mil/uL Hgb 8.3 L (12.0-18.0) g/dL Hct 25.0 L (35.0-51.0) % MCV 97.0 H (80.0-94.0) fL MCH 32.2 H (27.0-31.0) pg MCHC 33.2 (33.0-37.0) g/dL RDW 18.5 H (11.5-14.5) % Plt Count 175 (130-400) K/uL MPV 9.2 (7.2-11.7) fL Neut % (Auto) 72.9 (50.0-75.0) % Lymph % (Auto) 12.9 L (20.0-40.0) % Kaufman % (Auto) 10.3 H (0.0-10.0) % Eos % (Auto) 3.0 (0.0-4.0) % Baso % (Auto) 0.9 (0.0-2.0) % Neut # (Auto) 7.5 H (1.8-7.0) K/uL Lymph # (Auto) 1.3 (1.0-4.3) K/uL Kaufman # (Auto) 1.1 H (0.0-0.8) K/uL Eos # (Auto) 0.3 (0.0-0.7) K/uL Baso # (Auto) 0.1 (0.0-0.2) K/uL Sodium 139 (132-148) mmol/L Potassium 4.5 (3.6-5.2) mmol/L Chloride 101 (98-107) mmol/L Carbon Dioxide 27 (22-30) mmol/L Anion Gap 16 (10-20) BUN 43 H (9-20) mg/dL Creatinine 5.6 H (0.8-1.5) mg/dL Est GFR ( Amer) 12 Est GFR (Non-Af Amer) 10 POC Glucose (mg/dL) 158 H (65-110) mg/dL Random Glucose 147 H (75-110) mg/dL Calcium 8.0 L (8.6-10.4) mg/dl Phosphorus 5.1 H (2.5-4.5) mg/dL Magnesium 2.5 H (1.6-2.3) mg/dL Total Bilirubin 0.7 (0.2-1.3) mg/dL AST 35 (17-59) U/L ALT 36 (21-72) U/L Alkaline Phosphatase 110 (38-126) U/L Total Protein 6.1 L (6.3-8.3) g/dL Albumin 2.8 L (3.5-5.0) g/dL Globulin 3.3 (2.2-3.9) gm/dL Albumin/Globulin Ratio 0.9 L (1.0-2.1) 08/01/17 07/31/17 07/31/17 Range/Units 00:01 17:48 11:50 WBC (4.8-10.8) K/uL RBC (4.40-5.90) Mil/uL Hgb (12.0-18.0) g/dL Hct (35.0-51.0) % MCV (80.0-94.0) fL MCH (27.0-31.0) pg MCHC (33.0-37.0) g/dL RDW (11.5-14.5) % Plt Count (130-400) K/uL MPV (7.2-11.7) fL Neut % (Auto) (50.0-75.0) % Lymph % (Auto) (20.0-40.0) % Kaufman % (Auto) (0.0-10.0) % Eos % (Auto) (0.0-4.0) % Baso % (Auto) (0.0-2.0) % Neut # (Auto) (1.8-7.0) K/uL Lymph # (Auto) (1.0-4.3) K/uL Kaufman # (Auto) (0.0-0.8) K/uL Eos # (Auto) (0.0-0.7) K/uL Baso # (Auto) (0.0-0.2) K/uL Sodium (132-148) mmol/L Potassium (3.6-5.2) mmol/L Chloride (98-107) mmol/L Carbon Dioxide (22-30) mmol/L Anion Gap (10-20) BUN (9-20) mg/dL Creatinine (0.8-1.5) mg/dL Est GFR ( Amer) Est GFR (Non-Af Amer) POC Glucose (mg/dL) 173 H 187 H 171 H (65-110) mg/dL Random Glucose (75-110) mg/dL Calcium (8.6-10.4) mg/dl Phosphorus (2.5-4.5) mg/dL Magnesium (1.6-2.3) mg/dL Total Bilirubin (0.2-1.3) mg/dL AST (17-59) U/L ALT (21-72) U/L Alkaline Phosphatase (38-126) U/L Total Protein (6.3-8.3) g/dL Albumin (3.5-5.0) g/dL Globulin (2.2-3.9) gm/dL Albumin/Globulin Ratio (1.0-2.1) Laboratory Results - last 24 hr 07/31/17 07/31/17 08/01/17 11:50 17:48 00:01 WBC RBC Hgb Hct MCV MCH MCHC RDW Plt Count MPV Neut % (Auto) Lymph % (Auto) Kaufman % (Auto) Eos % (Auto) Baso % (Auto) Neut # (Auto) Lymph # (Auto) Kaufman # (Auto) Eos # (Auto) Baso # (Auto) Sodium Potassium Chloride Carbon Dioxide Anion Gap BUN Creatinine Est GFR ( Amer) Est GFR (Non-Af Amer) POC Glucose (mg/dL) 171 H 187 H 173 H Random Glucose Calcium Phosphorus Magnesium Total Bilirubin AST ALT Alkaline Phosphatase Total Protein Albumin Globulin Albumin/Globulin Ratio 08/01/17 08/01/17 08/01/17 04:52 06:39 06:40 WBC 10.3 RBC 2.58 L Hgb 8.3 L Hct 25.0 L MCV 97.0 H MCH 32.2 H MCHC 33.2 RDW 18.5 H Plt Count 175 MPV 9.2 Neut % (Auto) 72.9 Lymph % (Auto) 12.9 L Kaufman % (Auto) 10.3 H Eos % (Auto) 3.0 Baso % (Auto) 0.9 Neut # (Auto) 7.5 H Lymph # (Auto) 1.3 Kaufman # (Auto) 1.1 H Eos # (Auto) 0.3 Baso # (Auto) 0.1 Sodium 139 Potassium 4.5 Chloride 101 Carbon Dioxide 27 Anion Gap 16 BUN 43 H Creatinine 5.6 H Est GFR ( Amer) 12 Est GFR (Non-Af Amer) 10 POC Glucose (mg/dL) 158 H Random Glucose 147 H Calcium 8.0 L Phosphorus 5.1 H Magnesium 2.5 H Total Bilirubin 0.7 AST 35 ALT 36 Alkaline Phosphatase 110 Total Protein 6.1 L Albumin 2.8 L Globulin 3.3 Albumin/Globulin Ratio 0.9 L Fingerstick Blood Sugar Results: 158 Critical Care Progress Note - Nutrition Nutrition: Nutrition Category Date Time Status NPO Diet [DIET] Diets 07/31/17 Breakfast Active Assessment/Plan - Assessment and Plan (Free Text) Assessment: This is a 76 year old male with HTN, DM, Hypercholesterimia, CAD, CABG with 5 vessel disease, ESRD on peritoneal dialysis, with symptomatic bradycardia s/p pacemaker placed [address] Valencia, hypothyroidism, who presented to the ED on 07/28 for dysphagia and slurred speech, was diagnosed with Yu's Palsy. Patient is with persistent AMS 2/2 Metabolic Encephalopathy. Started on HD. S/P left AVF, right permacath 07/31. Plan: Neuro: - Extubated 07/27/17 - NGT in place A: Metabolic Encephalopathy Neurology consulted - Dr. 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 - Started Keppra 250mg PO BID A: Right Yu's Palsy Neurology: Dr. Thompson - on board Imaging: - Head CT: 1. Confluent area of low attenuation within the right frontal subcortical white matter suggestive for chronic ischemic change. 2. Scattered areas of chronic microvascular ischemic change. 3. Prominent ventricles. 4. No evidence of acute intracranial hemorrhage. If there is persistent concern for acute ischemic change, correlation with MRI is recommended. - Head/ Neck CTA: There is nonvisualization origin left vertebral artery. Left vertebral artery reconstitutes at approximately the lower C5 level and is seen on as a patent vessel to the level of the C2 segment where the vertebral artery is no longer visualized and appears to be occluded. Findings could represent sequela of atherosclerotic disease or dissection. Clinical correlation recommended. Right vertebral artery is patent throughout. The common carotid arteries, carotid bifurcations and internal carotid artery is widely patent. There is a calcified atherosclerotic plaque both cavernous carotid segments. The the at anterior middle and posterior cerebral arteries are patent. No evidence of large aneurysm nor vascular malformation. - Not able to have MRI - due to recent PPM placement - 07/[address]: No intracranial mass, hemorrhage or evidence of acute infarct. Right frontal encephalomalacia, possibly old MCA territory infarct. Small nonspecific right mastoid effusion. Chronic white matter ischemic change. A: Hx CVA -ASA 81mg, Plavix 75mg, Crestor 10mg Cardio: A: HTN, CAD, CABG with 5 vessel disease, with symptomatic bradycardia s/p pacemaker placed [address] Valencia - Recent ECHO performed in Dr. Elizabeth's office as outpatient - ASA 81mg, Plavix 75mg, Coreg 6.25mg PO BID, Cozaar 25mg, Crestor 10mg Pulm: A: Acute Respiratory Failure - Extubated 07/27/17 Endo: A: Hypothyroidism - Resumed Synthroid 50 mcg A: DM - Accuchecks - ISS - medium - A1C 8.4 GI: A: Cirrhosis, etiology unclear -Dr. Irvin consulted Renal: A: ESRD on HD with new L AVF, Right Permacath (MWF) --Nephrology consulted - Dr. Benson - Previously on peritoneal dialysis, removed PD catheter 07/31 - Procrit, Phoslo - S/P AVF, Right Permacath 07/31 Heme/Onc A: Anemia of Chronic Disease - Baseline hemoglobin 9s - Continue with Procrit - S/P transfused 1 unit PRBC 07/23 - Ferrlecit daily x 1 week - Stool occult- negative ID: A: Sepsis 2/2 Otitis Media with right mastoid effusion? Mastoiditis? r/o Meningitis ID consulted - Dr. Gabe Villegas - Workup up ordered - negative to date - Vanco 500mg on dialysis (07/19), and Acyclovir 400mg Q12 (07/22) - LAST DOSES Prophylaxis: - Pepcid 2/2 to steroids - Heparin during HD - Diet: NGT in place; failed swallow eval x 2 - PT/OT DW with Tameka Almanza, PGY-1 <Amy Ortega - Last Filed: 08/02/17 11:06> CCU Objective - Vital Signs / Intake & Output Vital Signs (Last 4 hours): Vital Signs Temp Pulse Pulse Resp BP BP Pulse Ox 08/02/17 10:50 85 17 138/55 L 99 08/02/17 10:35 87 11 L 139/56 L 100 08/02/17 10:20 85 21 138/55 L 100 08/02/17 10:05 97.8 F 85 28 H 135/54 L 100 08/02/17 09:55 97.8 F 86 28 H 124/50 L 08/02/17 07:56 85 22 131/54 L 100 Intake and Output (Last 8hrs): Intake & Output 08/01/17 08/02/17 08/02/17 22:59 06:59 14:59 Intake Total 540 340 60 Output Total 0 0 Balance 540 340 60 Weight 154 lb 1.65 oz Intake: Intake, IV Amount 200 100 Right Forearm 200 100 Tube Feeding 240 240 60 Other 100 Output: Urine 0 Urine, Voided 0 Emesis 0 Other: # Voids Urine, Voided 0 # Bowel Movements 0 0 - Medications Active Medications: Active Medications Generic Name Dose Route Start Last Admin Trade Name Sukhdevq PRN Reason Stop Dose Admin Acetaminophen 650 mg 07/24/17 07:42 08/02/17 00:25 Tylenol 325mg Tab PO 650 mg Q6 PRN Administration Fever >100.4 F Albuterol/Ipratropium 3 ml 07/13/17 14:00 08/02/17 07:35 Duoneb 3 Mg/0.5 Mg (3 Ml) Ud INH 3 ml RQ6 JAYLA Administration Artificial Tears 0 ml 07/13/17 22:00 08/02/17 09:32 Artificial Tears OD 1 drop Q3H PRN Administration Dry eyes Ascorbic Acid 500 mg 08/02/17 10:00 08/02/17 09:35 Vitamin C 500 Mg Tab PO 500 mg DAILY JAYLA Administration Aspirin 81 mg 07/15/17 10:00 08/02/17 09:32 Aspirin Chewable PO 81 mg DAILY JAYLA Administration Calcium Acetate 667 mg 07/13/17 12:00 08/02/17 08:00 Phoslo PO 667 mg TIDCC [facility] Administration Carvedilol 6.25 mg 07/23/17 18:00 08/02/17 09:32 Coreg PO Not Given BID [facility] Clopidogrel Bisulfate 75 mg 07/15/17 10:00 08/02/17 09:34 Plavix PO 75 mg DAILY [facility] Administration Epoetin Kumar 10,000 unit 07/16/17 09:00 08/01/17 12:30 Procrit SC 10,000 unit MWF [facility] Administration Famotidine 20 mg 07/25/17 12:15 08/02/17 09:34 Pepcid PO 20 mg DAILY [facility] Administration Ferric Sodium Gluconate Complex 125 mg 08/01/17 13:45 08/01/17 14:46 Ferrlecit IVPB 08/09/17 13:46 125 mg DAILY [facility] Administration Folic Acid 1 mg 08/02/17 10:00 08/02/17 09:33 Folic Acid PO 1 mg DAILY JAYLA Administration Acyclovir 200 mg/ Sodium 100 mls @ 100 mls/hr 07/22/17 13:00 08/02/17 00:26 Chloride IV 08/02/17 23:59 100 mls/hr Q12H JAYLA Administration Protocol Insulin Human Regular 0 unit 07/15/17 07:32 08/02/17 06:14 Novolin R SC 4 unit Q6 JAYLA Administration Protocol Levothyroxine Sodium 50 mcg 07/14/17 06:30 08/02/17 06:15 Synthroid PO 50 mcg DAILY@0630 JAYLA Administration Losartan Potassium 25 mg 07/25/17 15:00 08/02/17 09:32 Cozaar PO Not Given DAILY JAYLA Multivitamins/Vitamin C 5 ml 08/02/17 10:00 08/02/17 09:33 Multi-Delyn Liquid PO 5 ml DAILY JAYLA Administration Nystatin 1 ea 07/29/17 14:00 08/02/17 09:34 Mycostatin Cream TOP 1 applic TID JAYLA Administration Saccharomyces Boulardii 250 mg 07/28/17 22:00 08/02/17 09:32 Florastor PO 250 mg Q12 JAYLA Administration Thiamine HCl 100 mg 08/02/17 10:00 08/02/17 09:34 Vitamin B1 Tab PO 100 mg DAILY JAYLA Administration Vitamin A 1 ea 07/19/17 18:00 08/02/17 09:34 Vitamin A & D Oint Ud Foilpak TOP 1 ea BID JAYLA Administration Zinc Sulfate 220 mg 08/02/17 10:00 08/02/17 09:35 Zinc Sulfate 220 Mg Cap PO 220 mg DAILY JAYLA Administration - Patient Studies Lab Studies: Lab Studies 08/02/17 08/01/17 08/01/17 Range/Units 06:07 23:19 17:33 POC Glucose (mg/dL) 222 H 149 H 227 H (65-110) mg/dL 08/01/17 Range/Units 11:23 POC Glucose (mg/dL) 140 H (65-110) mg/dL Laboratory Results - last 24 hr 08/01/17 08/01/17 08/01/17 11:23 17:33 23:19 POC Glucose (mg/dL) 140 H 227 H 149 H 08/02/17 06:07 POC Glucose (mg/dL) 222 H Critical Care Progress Note - Nutrition Nutrition: Nutrition Category Date Time Status NPO Diet [DIET] Diets 07/31/17 Breakfast Active Assessment/Plan - Assessment and Plan (Free Text) Plan: Patinet seen and examined at bedside. Patient more awake, alert, tolerating NG tube. ABOve resident documents my physical exam and clinical management. Patient remains hemodynamically stable -continue HD -aspiration precautions - Date & Time Date: 08/01/17 Time: 19:00
[2017-08-01] MEDS: Vitamins A & D Oint UD Foilpak TOP SCH ×2 (12:27→17:04)
[2017-08-01] MEDS: EPOETIN ALFA 10,000 UNIT/ML ML SC SCH (12:30)
[2017-08-01] MEDS: Acetylcysteine 20% Inhal Soln (4ml) INH SCH ×2 (13:11→20:45)
--- NOTE | 2017-08-01 13:31 | CP.PCM.PN ---
Subjective - Date & Time of Evaluation Date of Evaluation: 08/01/17 Time of Evaluation: 13:29 - Subjective Subjective: Seen at dialysis- UF goal 3000ml Tolerating treatment well Failed swallow study- to be rechecked Much more alert anxious now no fevers, n, v, diarrhea Objective - Vital Signs/Intake and Output Vital Signs (last 24 hours): Temp Pulse Resp BP Pulse Ox 98 F 97 H 31 H 150/66 100 08/01/17 10:00 08/01/17 12:30 08/01/17 12:30 08/01/17 12:30 08/01/17 12:30 Intake and Output: 08/01/17 08/01/17 06:59 18:59 Intake Total 610 150 Output Total 0 0 Balance 610 150 - Medications Medications: Current Medications Acetaminophen (Tylenol 325mg Tab) 650 mg PO Q6 PRN PRN Reason: Fever >100.4 F Last Admin: 07/24/17 07:48 Dose: 650 mg Acetylcysteine (Acetylcysteine 20%) 4 ml INH RQ6 [facility] Stop: 08/02/17 08:01 Last Admin: 08/01/17 13:11 Dose: 4 ml Albuterol/Ipratropium (Duoneb 3 Mg/0.5 Mg (3 Ml) Ud) 3 ml INH RQ6 [facility] Last Admin: 08/01/17 13:11 Dose: 3 ml Artificial Tears (Artificial Tears) 0 ml OD Q3H PRN PRN Reason: Dry eyes Last Admin: 08/01/17 09:08 Dose: 1 drop Aspirin (Aspirin Chewable) 81 mg PO DAILY [facility] Last Admin: 08/01/17 09:01 Dose: 81 mg Calcium Acetate (Phoslo) 667 mg PO TIDCC [facility] Last Admin: 08/01/17 12:27 Dose: 667 mg Carvedilol (Coreg) 6.25 mg PO BID [facility] Last Admin: 07/31/17 18:11 Dose: 6.25 mg Clopidogrel Bisulfate (Plavix) 75 mg PO DAILY [facility] Last Admin: 08/01/17 09:02 Dose: 75 mg Epoetin Kumar (Procrit) 10,000 unit SC MWF [facility] Last Admin: 08/01/17 12:30 Dose: 10,000 unit Famotidine (Pepcid) 20 mg PO DAILY [facility] Last Admin: 08/01/17 09:10 Dose: 20 mg Hydromorphone HCl (Dilaudid) 0.5 mg IVP Q4H PRN PRN Reason: Pain, severe (8-10) Acyclovir 200 mg/ Sodium (Chloride) 100 mls @ 100 mls/hr IV Q12H JAYLA PRN Reason: Protocol Stop: 08/02/17 23:59 Last Admin: 08/01/17 12:31 Dose: 100 mls/hr Vancomycin/Sodium Chloride (Vancomycin 1 Gm/Ns 200 Ml) 1 gm in 200 mls @ 166.7 mls/hr IVPB MWF [facility] PRN Reason: Protocol Stop: 08/02/17 09:01 Last Admin: 07/30/17 19:38 Dose: 166.7 mls/hr Insulin Human Regular (Novolin R) 0 unit SC Q6 [facility] PRN Reason: Protocol Last Admin: 08/01/17 06:07 Dose: 2 unit Levetiracetam (Keppra) 250 mg PO BID [facility] Last Admin: 08/01/17 09:02 Dose: 250 mg Levothyroxine Sodium (Synthroid) 50 mcg PO DAILY@0630 [facility] Last Admin: 08/01/17 06:07 Dose: 50 mcg Losartan Potassium (Cozaar) 25 mg PO DAILY [facility] Last Admin: 07/31/17 10:00 Dose: Not Given Nystatin (Mycostatin Cream) 1 ea TOP TID [facility] Last Admin: 08/01/17 09:11 Dose: 1 applic Saccharomyces Boulardii (Florastor) 250 mg PO Q12 [facility] Last Admin: 08/01/17 10:00 Dose: 250 mg Vitamin A (Vitamin A & D Oint Ud Foilpak) 1 ea TOP BID [facility] Last Admin: 08/01/17 12:27 Dose: 1 ea - Labs Labs: 08/01/17 06:39 08/01/17 06:40 PT 10.6 SECONDS (9.7-12.2) 07/31/17 06:21 INR 1.0 07/31/17 06:21 APTT 27 SECONDS (21-34) 07/31/17 06:21 - Constitutional Appears: No Acute Distress, Chronically Ill - Head Exam Head Exam: ATRAUMATIC, NORMAL INSPECTION - Eye Exam Eye Exam: EOMI, Normal appearance - Neck Exam Neck Exam: Normal Inspection. absent: Tenderness - Respiratory Exam Respiratory Exam: Rhonchi, NORMAL BREATHING PATTERN - Cardiovascular Exam Cardiovascular Exam: Tachycardia, +S1 - GI/Abdominal Exam GI & Abdominal Exam: Tenderness - Extremities Exam Extremities Exam: Normal Inspection. absent: Tenderness - Neurological Exam Neurological Exam: Altered - Skin Skin Exam: Dry, Warm Assessment and Plan (1) TIA (transient ischemic attack) Status: Acute (2) ESRD (end stage renal disease) Status: Acute (3) Heart block AV complete Status: Acute (4) Type 2 diabetes mellitus with diabetic nephropathy Status: Acute - Assessment and Plan (Free Text) Plan: continue adequate UF with HD repeat dialysis 08/02, then MWF continue ESAs, IV Fe will need outpt HD arrangements- contacted social workers
[2017-08-01] MEDS: Vancomycin 1 gm/NS 200 ml 1 GM/200 ML BAG IVPB SCH (14:33)
[2017-08-01] MEDS: Ferric Sodium Gluconat Complex 62.5 mg/5 ml Vial IVPB SCH (14:46)
--- NOTE | 2017-08-01 22:22 | CP.PCM.PN ---
Subjective - Date & Time of Evaluation Date of Evaluation: 08/01/17 Time of Evaluation: 13:10 - Subjective Subjective: Patient seen and examined at bedside. Patient is alert, awake, follows commands. Still failing bedside swallow. Physical Examination - Physical Exam Head: Positive for: Atraumatic, Normocephalic Pupils: Positive for: PERRL Extroacular Muscles: Positive for: EOMI Conjunctiva: Positive for: Normal Mouth: Positive for: Moist Mucous Membranes Pharnyx: Positive for: Uvular Deviation (right) Nose (Internal): Positive for: Other (NGT in place) Neck: Positive for: Normal Range of Motion, Other Respiratory/Chest: Positive for: Clear to Auscultation, Good Air Exchange. Negative for: Respiratory Distress Cardiovascular: Positive for: Tachycardic, Other (Right permacath ) Abdomen: Positive for: Normal Bowel Sounds, Other (peritoneal catheter removed, dressing C/D/I) Back: Positive for: Normal Inspection Upper Extremity: Positive for: Normal Inspection, NORMAL PULSES, Neurovascularly Intact, Capillary Refill < 2s, Other (left arm AVF ). Negative for: Cyanosis, Edema, Tenderness, Swelling, Erythema Lower Extremity: Positive for: Normal Inspection, NORMAL PULSES. Negative for: Edema, CALF TENDERNESS, Tenderness, Swelling, Erythema Neurological: Positive for: Other (right facial droop ) Skin: Positive for: Warm, Dry, Normal Color. Negative for: Rashes Psychiatric: Positive for: Alert, Lethargic Objective - Vital Signs/Intake and Output Vital Signs (last 24 hours): Temp Pulse Resp BP Pulse Ox 99 F 100 H 26 H 130/50 L 100 08/01/17 19:00 08/01/17 22:00 08/01/17 22:00 08/01/17 21:57 08/01/17 22:00 Intake and Output: 08/01/17 08/02/17 18:59 06:59 Intake Total 760 220 Output Total 0 0 Balance 760 220 - Medications Medications: Current Medications Acetaminophen (Tylenol 325mg Tab) 650 mg PO Q6 PRN PRN Reason: Fever >100.4 F Last Admin: 07/24/17 07:48 Dose: 650 mg Acetylcysteine (Acetylcysteine 20%) 4 ml INH RQ6 [facility] Stop: 08/02/17 08:01 Last Admin: 06/22/18 20:45 Dose: 4 ml Albuterol/Ipratropium (Duoneb 3 Mg/0.5 Mg (3 Ml) Ud) 3 ml INH RQ6 [facility] Last Admin: 08/01/17 20:45 Dose: 3 ml Artificial Tears (Artificial Tears) 0 ml OD Q3H PRN PRN Reason: Dry eyes Last Admin: 08/01/17 09:08 Dose: 1 drop Aspirin (Aspirin Chewable) 81 mg PO DAILY [facility] Last Admin: 08/01/17 09:01 Dose: 81 mg Calcium Acetate (Phoslo) 667 mg PO TIDCC [facility] Last Admin: 08/01/17 17:03 Dose: 667 mg Carvedilol (Coreg) 6.25 mg PO BID [facility] Last Admin: 08/01/17 17:03 Dose: 6.25 mg Clopidogrel Bisulfate (Plavix) 75 mg PO DAILY [facility] Last Admin: 08/01/17 09:02 Dose: 75 mg Epoetin Kumar (Procrit) 10,000 unit [facility] Last Admin: 08/01/17 12:30 Dose: 10,000 unit Famotidine (Pepcid) 20 mg PO DAILY [facility] Last Admin: 08/01/17 09:10 Dose: 20 mg Ferric Sodium Gluconate Complex (Ferrlecit) 125 mg IVPB DAILY [facility] Stop: 08/09/17 13:46 Last Admin: 08/01/17 14:46 Dose: 125 mg Hydromorphone HCl (Dilaudid) 0.5 mg IVP Q4H PRN PRN Reason: Pain, severe (8-10) Acyclovir 200 mg/ Sodium (Chloride) 100 mls @ 100 mls/hr IV Q12H [facility] PRN Reason: Protocol Stop: 08/02/17 23:59 Last Admin: 08/01/17 12:31 Dose: 100 mls/hr Vancomycin/Sodium Chloride (Vancomycin 1 Gm/Ns 200 Ml) 1 gm in 200 mls @ 166.7 mls/hr IVPB [facility] [place] PRN Reason: Protocol Stop: 08/02/17 09:01 Last Admin: 08/01/17 14:33 Dose: 166.7 mls/hr Insulin Human Regular (Novolin R) 0 unit SC Q6 [facility] PRN Reason: Protocol Last Admin: 08/01/17 18:43 Dose: 4 unit Levetiracetam (Keppra) 250 mg PO BID [facility] Last Admin: 08/01/17 17:03 Dose: 250 mg Levothyroxine Sodium (Synthroid) 50 mcg PO DAILY@0630 [facility] Last Admin: 08/01/17 06:07 Dose: 50 mcg Losartan Potassium (Cozaar) 25 mg PO DAILY [facility] Last Admin: 08/01/17 10:00 Dose: Not Given Nystatin (Mycostatin Cream) 1 ea TOP TID [facility] Last Admin: 08/01/17 17:04 Dose: 1 applic Saccharomyces Boulardii (Florastor) 250 mg PO Q12 [facility] Last Admin: 08/01/17 21:14 Dose: 250 mg Vitamin A (Vitamin A & D Oint Ud Foilpak) 1 ea TOP BID [facility] Last Admin: 08/01/17 17:04 Dose: 1 ea - Labs Labs: 08/01/17 06:39 08/01/17 06:40 PT 10.6 SECONDS (9.7-12.2) 07/31/17 06:21 INR 1.0 07/31/17 06:21 APTT 27 SECONDS (21-34) 07/31/17 06:21 Assessment and Plan - Assessment and Plan (Free Text) Assessment: This is a 76 year old male with HTN, DM, Hypercholesterimia, CAD, CABG with 5 vessel disease, ESRD on peritoneal dialysis, with symptomatic bradycardia s/p pacemaker placed [address] Valencia, hypothyroidism, who presented to the ED on 07/28 for dysphagia and slurred speech, was diagnosed with Yu's Palsy. Patient is with persistent AMS 2/2 Metabolic Encephalopathy. Started on HD. S/P left AVF, right permacath 07/31. Plan: Neuro: - Extubated 07/27/17 - NGT in place A: Metabolic Encephalopathy Neurology consulted - Dr. 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 - Started Keppra 250mg PO BID A: Right Yu's Palsy Neurology: Dr. Thompson - on board Imaging: - Head CT: 1. Confluent area of low attenuation within the right frontal subcortical white matter suggestive for chronic ischemic change. 2. Scattered areas of chronic microvascular ischemic change. 3. Prominent ventricles. 4. No evidence of acute intracranial hemorrhage. If there is persistent concern for acute ischemic change, correlation with MRI is recommended. - Head/ Neck CTA: There is nonvisualization origin left vertebral artery. Left vertebral artery reconstitutes at approximately the lower C5 level and is seen on as a patent vessel to the level of the C2 segment where the vertebral artery is no longer visualized and appears to be occluded. Findings could represent sequela of atherosclerotic disease or dissection. Clinical correlation recommended. Right vertebral artery is patent throughout. The common carotid arteries, carotid bifurcations and internal carotid artery is widely patent. There is a calcified atherosclerotic plaque both cavernous carotid segments. The the at anterior middle and posterior cerebral arteries are patent. No evidence of large aneurysm nor vascular malformation. - Not able to have MRI - due to recent PPM placement - 07/[address]: No intracranial mass, hemorrhage or evidence of acute infarct. Right frontal encephalomalacia, possibly old MCA territory infarct. Small nonspecific right mastoid effusion. Chronic white matter ischemic change. A: Hx CVA -ASA 81mg, Plavix 75mg, Crestor 10mg Cardio: A: HTN, CAD, CABG with 5 vessel disease, with symptomatic bradycardia s/p pacemaker placed [address] Valencia - Recent ECHO performed in Dr. Elizabeth's office as outpatient - ASA 81mg, Plavix 75mg, Coreg 6.25mg PO BID, Cozaar 25mg, Crestor 10mg Pulm: A: Acute Respiratory Failure - Extubated 07/27/17 Endo: A: Hypothyroidism - Resumed Synthroid 50 mcg A: DM - Accuchecks - ISS - medium - A1C 8.4 GI: A: Cirrhosis, etiology unclear -Dr. Irvin consulted Renal: A: ESRD on HD with new L AVF, Right Permacath (MWF) --Nephrology consulted - Dr. Benson - Previously on peritoneal dialysis, removed PD catheter 07/31 - Procrit, Phoslo - S/P AVF, Right Permacath 07/31 Heme/Onc A: Anemia of Chronic Disease - Baseline hemoglobin 9s - Continue with Procrit - S/P transfused 1 unit PRBC 07/23 - Ferrlecit daily x 1 week - Stool occult- negative ID: A: Sepsis 2/2 Otitis Media with right mastoid effusion? Mastoiditis? r/o Meningitis ID consulted - Dr. Gabe Villegas - Workup up ordered - negative to date - Vanco 500mg on dialysis (07/19), and Acyclovir 400mg Q12 (07/22) - LAST DOSES Prophylaxis: - Pepcid 2/2 to steroids - Heparin during HD - Diet: NGT in place; failed swallow eval x 2 - PT/OT
--- NOTE | 2017-08-01 22:41 | CP.PCM.PN ---
Subjective - Date & Time of Evaluation Date of Evaluation: 08/01/17 Time of Evaluation: 22:40 - Subjective Subjective: Patient this afternoon after the dialysis was feeling slightly better. He was awake and responding and more moving extremities. But at nighttime. He was most likely is under reduced anxiety noted. He is not moving the arms and extremities as in the morning. Family at bedside On examination: Vital signs otherwise stable. Thick mucus production noted when he is coughing Wheezing mildly noted regular heart sound abdominal tenderness negative no pedal edema Labs reviewed Nonspecific. X-rays clear Assessment and recommendation: 77-year-old male with a history of CAD, CABG, hypertension, hypercholesterolemia , end-stage renal disease on dialysis Patient is currently receiving hemodialysis. Status post AV fistula yesterday on the left upper extremity. Blood pressure stable. Altered mental status, secondary to hepatic encephalopathy metabolic encephalopathy. Uremia. On hemodialysis. Continue the current Objective - Vital Signs/Intake and Output Vital Signs (last 24 hours): Temp Pulse Resp BP Pulse Ox 99 F 100 H 26 H 130/50 L 100 08/01/17 19:00 08/01/17 22:00 08/01/17 22:00 08/01/17 21:57 08/01/17 22:00 Intake and Output: 08/01/17 08/02/17 18:59 06:59 Intake Total 760 220 Output Total 0 0 Balance 760 220 - Medications Medications: Current Medications Acetaminophen (Tylenol 325mg Tab) 650 mg PO Q6 PRN PRN Reason: Fever >100.4 F Last Admin: 07/24/17 07:48 Dose: 650 mg Acetylcysteine (Acetylcysteine 20%) 4 ml INH RQ6 [facility] Stop: 08/02/17 08:01 Last Admin: 08/01/17 20:45 Dose: 4 ml Albuterol/Ipratropium (Duoneb 3 Mg/0.5 Mg (3 Ml) Ud) 3 ml INH RQ6 [facility] Last Admin: 08/01/17 20:45 Dose: 3 ml Artificial Tears (Artificial Tears) 0 ml OD Q3H PRN PRN Reason: Dry eyes Last Admin: 08/01/17 09:08 Dose: 1 drop Aspirin (Aspirin Chewable) 81 mg PO DAILY [facility] Last Admin: 08/01/17 09:01 Dose: 81 mg Calcium Acetate (Phoslo) 667 mg PO TIDCC [facility] Last Admin: 08/01/17 17:03 Dose: 667 mg Carvedilol (Coreg) 6.25 mg PO BID [facility] Last Admin: 08/01/17 17:03 Dose: 6.25 mg Clopidogrel Bisulfate (Plavix) 75 mg PO DAILY [facility] Last Admin: 08/01/17 09:02 Dose: 75 mg Epoetin Kumar (Procrit) 10,000 unit SC MWF [facility] Last Admin: 08/01/17 12:30 Dose: 10,000 unit Famotidine (Pepcid) 20 mg PO DAILY [facility] Last Admin: 08/01/17 09:10 Dose: 20 mg Ferric Sodium Gluconate Complex (Ferrlecit) 125 mg IVPB DAILY [facility] Stop: 08/09/17 13:46 Last Admin: 08/01/17 14:46 Dose: 125 mg Hydromorphone HCl (Dilaudid) 0.5 mg IVP Q4H PRN PRN Reason: Pain, severe (8-10) Acyclovir 200 mg/ Sodium (Chloride) 100 mls @ 100 mls/hr IV Q12H [facility] PRN Reason: Protocol Stop: 08/02/17 23:59 Last Admin: 08/01/17 12:31 Dose: 100 mls/hr Vancomycin/Sodium Chloride (Vancomycin 1 Gm/Ns 200 Ml) 1 gm in 200 mls @ 166.7 mls/hr IVPB [facility]N Reason: Protocol Stop: 08/02/17 09:01 Last Admin: 08/01/17 14:33 Dose: 166.7 mls/hr Insulin Human Regular (Novolin R) 0 unit SC Q6 [facility] PRN Reason: Protocol Last Admin: 08/01/17 18:43 Dose: 4 unit Levetiracetam (Keppra) 250 mg PO BID [facility] Last Admin: 08/01/17 17:03 Dose: 250 mg Levothyroxine Sodium (Synthroid) 50 mcg PO DAILY@0630 [facility] Last Admin: 08/01/17 06:07 Dose: 50 mcg Losartan Potassium (Cozaar) 25 mg PO DAILY [facility] Last Admin: 08/01/17 10:00 Dose: Not Given Nystatin (Mycostatin Cream) 1 ea TOP TID [facility] Last Admin: 08/01/17 17:04 Dose: 1 applic Saccharomyces Boulardii (Florastor) 250 mg PO Q12 [facility] Last Admin: 08/01/17 21:14 Dose: 250 mg Vitamin A (Vitamin A & D Oint Ud Foilpak) 1 ea TOP BID [facility] Last Admin: 08/01/17 17:04 Dose: 1 ea - Labs Labs: 08/01/17 06:39 08/01/17 06:40 PT 10.6 SECONDS (9.7-12.2) 07/31/17 06:21 INR 1.0 07/31/17 06:21 APTT 27 SECONDS (21-34) 07/31/17 06:21
[2017-08-02] MEDS: (Novolin R) Insulin Human Regular 100 units/ml vial SC SCH ×4 (00:02→17:58)
[2017-08-02] MEDS: Acetylcysteine 20% Inhal Soln (4ml) INH SCH ×2 (01:59→07:35)
[2017-08-02] MEDS: Albuterol-Ipratrop 3 mg / 0.5 (3 ml) UD INH SCH ×4 (01:59→19:54)
[2017-08-02] MEDS: Levothyroxine 50 MCG TAB PO SCH (06:15)
--- NOTE | 2017-08-02 08:55 | CP.PCM.PN ---
Subjective - Date & Time of Evaluation Date of Evaluation: 08/02/17 Time of Evaluation: 08:53 - Subjective Subjective: Lethargic now Was more alert before as per daughter Labs acceptable Remains on NGT feeds Still with mild wheezing, rhonchi Due for extra dialysis now; tolerated dialysis well 08/01 Has been afebrile Objective - Vital Signs/Intake and Output Vital Signs (last 24 hours): Temp Pulse Resp BP Pulse Ox 99 F 85 22 131/54 L 100 08/02/17 04:00 08/02/17 07:56 08/02/17 07:56 08/02/17 07:56 08/02/17 07:56 Intake and Output: 08/02/17 08/02/17 06:59 18:59 Intake Total 560 60 Output Total 0 0 Balance 560 60 - Medications Medications: Current Medications Acetaminophen (Tylenol 325mg Tab) 650 mg PO Q6 PRN PRN Reason: Fever >100.4 F Last Admin: 08/02/17 00:25 Dose: 650 mg Albuterol/Ipratropium (Duoneb 3 Mg/0.5 Mg (3 Ml) Ud) 3 ml INH RQ6 [facility] Last Admin: 08/02/17 07:35 Dose: 3 ml Artificial Tears (Artificial Tears) 0 ml OD Q3H PRN PRN Reason: Dry eyes Last Admin: 08/01/17 09:08 Dose: 1 drop Ascorbic Acid (Vitamin C 500 Mg Tab) 500 mg PO DAILY [facility] Aspirin (Aspirin Chewable) 81 mg PO DAILY [facility] Last Admin: 08/01/17 09:01 Dose: 81 mg Calcium Acetate (Phoslo) 667 mg PO TIDCC [facility] Last Admin: 08/02/17 08:00 Dose: 667 mg Carvedilol (Coreg) 6.25 mg PO BID [facility] Last Admin: 08/01/17 17:03 Dose: 6.25 mg Clopidogrel Bisulfate (Plavix) 75 mg PO DAILY [facility] Last Admin: 08/01/17 09:02 Dose: 75 mg Epoetin Kumar (Procrit) 10,000 unit SC MWF [facility] Last Admin: 08/01/17 12:30 Dose: 10,000 unit Famotidine (Pepcid) 20 mg PO DAILY [facility] Last Admin: 08/01/17 09:10 Dose: 20 mg Ferric Sodium Gluconate Complex (Ferrlecit) 125 mg IVPB DAILY [facility] Stop: 08/09/17 13:46 Last Admin: 08/01/17 14:46 Dose: 125 mg Folic Acid (Folic Acid) 1 mg PO DAILY [facility] Acyclovir 200 mg/ Sodium (Chloride) 100 mls @ 100 mls/hr IV Q12H [facility] PRN Reason: Protocol Stop: 08/02/17 23:59 Last Admin: 08/02/17 00:26 Dose: 100 mls/hr Vancomycin/Sodium Chloride (Vancomycin 1 Gm/Ns 200 Ml) 1 gm in 200 mls @ 166.7 mls/hr IVPB MWF [facility] PRN Reason: Protocol Stop: 08/02/17 09:01 Last Admin: 08/01/17 14:33 Dose: 166.7 mls/hr Insulin Human Regular (Novolin R) 0 unit SC Q6 [facility] PRN Reason: Protocol Last Admin: 08/02/17 06:14 Dose: 4 unit Levothyroxine Sodium (Synthroid) 50 mcg PO DAILY@0630 [facility] Last Admin: 08/02/17 06:15 Dose: 50 mcg Losartan Potassium (Cozaar) 25 mg PO DAILY [facility] Last Admin: 08/01/17 10:00 Dose: Not Given Multivitamins/Vitamin C (Multi-Delyn Liquid) 5 ml PO DAILY [facility] Nystatin (Mycostatin Cream) 1 ea TOP TID [facility] Last Admin: 08/01/17 17:04 Dose: 1 applic Saccharomyces Boulardii (Florastor) 250 mg PO Q12 [facility] Last Admin: 08/01/17 21:14 Dose: 250 mg Thiamine HCl (Vitamin B1 Tab) 100 mg PO DAILY [facility] Vitamin A (Vitamin A & D Oint Ud Foilpak) 1 ea TOP BID [facility] Last Admin: 08/01/17 17:04 Dose: 1 ea Zinc Sulfate (Zinc Sulfate 220 Mg Cap) 220 mg PO DAILY [facility] - Labs Labs: 08/01/17 06:39 08/01/17 06:40 PT 10.6 SECONDS (9.7-12.2) 07/31/17 06:21 INR 1.0 07/31/17 06:21 APTT 27 SECONDS (21-34) 07/31/17 06:21 - Constitutional Appears: No Acute Distress, Confused, Chronically Ill - Head Exam Head Exam: ATRAUMATIC, NORMAL INSPECTION - Eye Exam Eye Exam: EOMI, Normal appearance - Neck Exam Neck Exam: Normal Inspection. absent: Tenderness - Respiratory Exam Respiratory Exam: Rhonchi, Respiratory Distress - Cardiovascular Exam Cardiovascular Exam: REGULAR RHYTHM, +S1 - GI/Abdominal Exam GI & Abdominal Exam: Soft. absent: Tenderness - Extremities Exam Extremities Exam: Normal Inspection. absent: Tenderness - Neurological Exam Neurological Exam: Altered - Skin Skin Exam: Dry, Warm Assessment and Plan (1) TIA (transient ischemic attack) Status: Acute (2) ESRD (end stage renal disease) Status: Acute (3) Heart block AV complete Status: Acute (4) Type 2 diabetes mellitus with diabetic nephropathy Status: Acute - Assessment and Plan (Free Text) Plan: Repeat dialysis now CXR Same EPO- follow up h/h Iv ABs as per medicine follow chems closely
[2017-08-02] MEDS: Aritificial Tears (15ml) OD PRN (09:32)
[2017-08-02] MEDS: Saccharomyces Boulardi 250 mg Cap PO SCH ×2 (09:32→21:31)
[2017-08-02] MEDS: Multiple Vitamins Oral Solution PO SCH (09:33)
[2017-08-02] MEDS: Nystatin 100,000 Units/gm Cream(15 gm) TOP SCH ×3 (09:34→17:00)
[2017-08-02] MEDS: Vitamins A & D Oint UD Foilpak TOP SCH ×2 (09:34→17:00)
[2017-08-02 10:56] LABS: BASO # 0.1 K/uL (0.0-0.2); BASO % 0.8 % (0.0-2.0); NRBC % 0.1 % (0.0-2.0)
[2017-08-02 11:11] LABS: EOS # 0.3 K/uL (0.0-0.7); EOS % 2.9 % (0.0-4.0); HEMOGLOBIN 7.7 g/dL (12.0-18.0); LYMPH # 1.4 K/uL (1.0-4.3); LYMPH % 14.4 % (20.0-40.0); MEAN CELL VOLUME 97.4 fL (80.0-94.0); MEAN CORPUSCULAR HEMOGLOBIN 32.5 pg (27.0-31.0); MEAN CORPUSCULAR HGB CONC 33.4 g/dL (33.0-37.0); MEAN PLATELET VOLUME 7.9 fL (7.2-11.7); MONO # 1.1 K/uL (0.0-0.8); MONO % 10.9 % (0.0-10.0); NEUT # 7.1 K/uL (1.8-7.0); RBC 2.36 Mil/uL (4.40-5.90); RED CELL DISTRIBUTION WIDTH 19.9 % (11.5-14.5); WHITE BLOOD COUNT 10.1 K/uL (4.8-10.8)
[2017-08-02 11:14] LABS: ALB/GLOB RATIO 0.8 (1.0-2.1); ALBUMIN 2.6 g/dL (3.5-5.0); CALCIUM 7.9 mg/dl (8.6-10.4)
--- NOTE | 2017-08-02 12:45 | CP.CCUPN ---
<Tameka Chin - Last Filed: 08/02/17 12:41> CCU Subjective - Physician Review Subjective (Free Text): Patient seen and examined at bedside. Patient is slightly lethargic, still failing bedside swallow. CCU Objective - Vital Signs / Intake & Output Vital Signs (Last 4 hours): Vital Signs Temp Pulse Pulse Resp BP BP Pulse Ox 08/02/17 12:35 90 20 142/57 L 08/02/17 12:25 89 22 142/57 L 100 08/02/17 12:20 88 22 141/58 L 100 08/02/17 12:10 87 22 141/58 L 100 08/02/17 12:05 84 24 137/52 L 100 08/02/17 12:00 98.4 F 08/02/17 11:55 88 24 137/52 L 98 08/02/17 11:50 87 24 133/59 L 100 08/02/17 11:40 87 22 133/59 L 96 08/02/17 11:35 85 24 141/59 L 100 08/02/17 11:25 87 22 141/59 L 100 08/02/17 11:20 87 22 142/68 98 08/02/17 11:11 87 23 142/68 100 08/02/17 11:05 87 21 136/60 97 08/02/17 10:55 85 24 136/60 98 08/02/17 10:50 85 17 138/55 L 99 08/02/17 10:40 85 23 138/55 L 100 08/02/17 10:35 87 11 L 139/56 L 100 08/02/17 10:25 85 21 139/56 L 100 08/02/17 10:20 85 21 138/55 L 100 08/02/17 10:10 86 22 138/55 L 100 08/02/17 10:05 97.8 F 85 28 H 135/54 L 100 08/02/17 09:55 97.8 F 86 25 H 138/54 L 100 08/02/17 09:40 86 22 130/52 L 95 08/02/17 09:25 87 23 132/54 L 96 08/02/17 09:10 86 24 124/50 L 94 L 08/02/17 08:55 86 25 H 127/54 L 100 Intake and Output (Last 8hrs): Intake & Output 08/01/17 08/02/17 08/02/17 22:59 06:59 14:59 Intake Total 540 340 90 Output Total 0 0 Balance 540 340 90 Weight 154 lb 1.65 oz Intake: Intake, IV Amount 200 100 Right Forearm 200 100 Tube Feeding 240 240 90 Other 100 Output: Urine 0 Urine, Voided 0 Emesis 0 Other: # Voids Urine, Voided 0 # Bowel Movements 0 0 - Physical Exam Head: Positive for: Atraumatic, Normocephalic Pupils: Positive for: PERRL Extroacular Muscles: Positive for: EOMI Conjunctiva: Positive for: Normal Mouth: Positive for: Moist Mucous Membranes Nose (Internal): Positive for: Other (NGT in place) Neck: Positive for: Normal Range of Motion, Other Respiratory/Chest: Positive for: Clear to Auscultation, Good Air Exchange. Negative for: Respiratory Distress Cardiovascular: Positive for: Tachycardic, Other (Right permacath ) Abdomen: Positive for: Normal Bowel Sounds, Other (peritoneal catheter removed, dressing C/D/I) Back: Positive for: Normal Inspection Upper Extremity: Positive for: Normal Inspection, NORMAL PULSES, Neurovascularly Intact, Capillary Refill < 2s, Other (left arm AVF ). Negative for: Cyanosis, Edema, Tenderness, Swelling, Erythema Lower Extremity: Positive for: Normal Inspection, NORMAL PULSES. Negative for: Edema, CALF TENDERNESS, Tenderness, Swelling, Erythema Neurological: Positive for: Other (right facial droop ) Skin: Positive for: Warm, Dry, Normal Color. Negative for: Rashes Psychiatric: Positive for: Alert, Lethargic - Medications Active Medications: Active Medications Generic Name Dose Route Start Last Admin Trade Name Freq PRN Reason Stop Dose Admin Acetaminophen 650 mg 07/24/17 07:42 08/02/17 00:25 Tylenol 325mg Tab PO 650 mg Q6 PRN Administration Fever >100.4 F Albuterol/Ipratropium 3 ml 07/13/17 14:00 08/02/17 07:35 Duoneb 3 Mg/0.5 Mg (3 Ml) Ud INH 3 ml RQ6 JAYLA Administration Artificial Tears 0 ml 07/13/17 22:00 08/02/17 09:32 Artificial Tears OD 1 drop Q3H PRN Administration Dry eyes Ascorbic Acid 500 mg 08/02/17 10:00 08/02/17 09:35 Vitamin C 500 Mg Tab PO 500 mg DAILY JAYLA Administration Calcium Acetate 667 mg 07/13/17 12:00 08/02/17 12:23 Phoslo PO 667 mg TIDCC JAYLA Administration Carvedilol 6.25 mg 07/23/17 18:00 08/02/17 09:32 Coreg PO Not Given BID JAYLA Clopidogrel Bisulfate 75 mg 07/15/17 10:00 08/02/17 09:34 Plavix PO 75 mg DAILY JAYLA Administration Epoetin Kumar 10,000 unit 07/16/17 09:00 08/01/17 12:30 Procrit SC 10,000 unit MWF JAYLA Administration Ferric Sodium Gluconate Complex 125 mg 08/01/17 13:45 08/01/17 14:46 Ferrlecit IVPB 08/09/17 13:46 125 mg DAILY JAYLA Administration Folic Acid 1 mg 08/02/17 10:00 08/02/17 09:33 Folic Acid PO 1 mg DAILY JAYLA Administration Acyclovir 200 mg/ Sodium 100 mls @ 100 mls/hr 07/22/17 13:00 08/02/17 00:26 Chloride IV 08/02/17 23:59 100 mls/hr Q12H JAYLA Administration Protocol Insulin Human Regular 0 unit 07/15/17 07:32 08/02/17 11:59 Novolin R SC Not Given Q6 [facility] Protocol Levothyroxine Sodium 50 mcg 07/14/17 06:30 08/02/17 06:15 Synthroid PO 50 mcg DAILY@0630 JAYLA Administration Losartan Potassium 25 mg 07/25/17 15:00 08/02/17 09:32 Cozaar PO Not Given DAILY [facility] Multivitamins/Vitamin C 5 ml 08/02/17 10:00 08/02/17 09:33 Multi-Delyn Liquid PO 5 ml DAILY [facility] Administration Nystatin 1 ea 07/29/17 14:00 08/02/17 09:34 Mycostatin Cream TOP 1 applic TID [facility] Administration Pantoprazole Sodium 40 mg 08/02/17 11:45 08/02/17 12:32 Protonix Inj IVP Not Given Q12 J[facility]LA Saccharomyces Boulardii 250 mg 07/28/17 22:00 08/02/17 09:32 Florastor PO 250 mg Q12 J[facility]LA Administration Thiamine HCl 100 mg 08/02/17 10:00 08/02/17 09:34 Vitamin B1 Tab PO 100 mg DAILY J[facility] Administration Vitamin A 1 ea 07/19/17 18:00 08/02/17 09:34 Vitamin A & D Oint Ud Foilpak TOP 1 ea BID [facility] Administration Zinc Sulfate 220 mg 08/02/17 10:00 08/02/17 09:35 Zinc Sulfate 220 Mg Cap PO 220 mg DAILY JAYLA Administration - Patient Studies Lab Studies: Lab Studies 08/02/17 08/02/17 08/02/17 Range/Units 12:15 11:52 10:41 WBC (4.8-10.8) K/uL RBC (4.40-5.90) Mil/uL Hgb (12.0-18.0) g/dL Hct (35.0-51.0) % MCV (80.0-94.0) fL MCH (27.0-31.0) pg MCHC (33.0-37.0) g/dL RDW (11.5-14.5) % Plt Count (130-400) K/uL MPV (7.2-11.7) fL Neut % (Auto) (50.0-75.0) % Lymph % (Auto) (20.0-40.0) % Hughes % (Auto) (0.0-10.0) % Eos % (Auto) (0.0-4.0) % Baso % (Auto) (0.0-2.0) % Neut # (Auto) (1.8-7.0) K/uL Lymph # (Auto) (1.0-4.3) K/uL Hughes # (Auto) (0.0-0.8) K/uL Eos # (Auto) (0.0-0.7) K/uL Baso # (Auto) (0.0-0.2) K/uL Sodium 141 (132-148) mmol/L Potassium 3.8 (3.6-5.2) mmol/L Chloride 101 (98-107) mmol/L Carbon Dioxide 33 H (22-30) mmol/L Anion Gap 10 (10-20) BUN 25 H (9-20) mg/dL Creatinine 3.9 H (0.8-1.5) mg/dL Est GFR ( Amer) 18 Est GFR (Non-Af Amer) 15 POC Glucose (mg/dL) 116 H (65-110) mg/dL Random Glucose 157 H (75-110) mg/dL Calcium 7.9 L (8.6-10.4) mg/dl Phosphorus 3.1 (2.5-4.5) mg/dL Magnesium 2.3 (1.6-2.3) mg/dL Total Bilirubin 0.5 (0.2-1.3) mg/dL AST 33 (17-59) U/L ALT 28 (21-72) U/L Alkaline Phosphatase 112 (38-126) U/L Total Protein 5.6 L (6.3-8.3) g/dL Albumin 2.6 L (3.5-5.0) g/dL Globulin 3.1 (2.2-3.9) gm/dL Albumin/Globulin Ratio 0.8 L (1.0-2.1) Blood Type B POSITIVE 08/02/17 08/02/17 08/01/17 Range/Units 10:41 06:07 23:19 WBC 10.1 (4.8-10.8) K/uL RBC 2.36 L (4.40-5.90) Mil/uL Hgb 7.7 L (12.0-18.0) g/dL Hct 23.0 L (35.0-51.0) % MCV 97.4 H (80.0-94.0) fL MCH 32.5 H (27.0-31.0) pg MCHC 33.4 (33.0-37.0) g/dL RDW 19.9 H (11.5-14.5) % Plt Count 179 (130-400) K/uL MPV 7.9 (7.2-11.7) fL Neut % (Auto) 71.0 (50.0-75.0) % Lymph % (Auto) 14.4 L (20.0-40.0) % Hughes % (Auto) 10.9 H (0.0-10.0) % Eos % (Auto) 2.9 (0.0-4.0) % Baso % (Auto) 0.8 (0.0-2.0) % Neut # (Auto) 7.1 H (1.8-7.0) K/uL Lymph # (Auto) 1.4 (1.0-4.3) K/uL Hughes # (Auto) 1.1 H (0.0-0.8) K/uL Eos # (Auto) 0.3 (0.0-0.7) K/uL Baso # (Auto) 0.1 (0.0-0.2) K/uL Sodium (132-148) mmol/L Potassium (3.6-5.2) mmol/L Chloride (98-107) mmol/L Carbon Dioxide (22-30) mmol/L Anion Gap (10-20) BUN (9-20) mg/dL Creatinine (0.8-1.5) mg/dL Est GFR ( Amer) Est GFR (Non-Af Amer) POC Glucose (mg/dL) 222 H 149 H (65-110) mg/dL Random Glucose (75-110) mg/dL Calcium (8.6-10.4) mg/dl Phosphorus (2.5-4.5) mg/dL Magnesium (1.6-2.3) mg/dL Total Bilirubin (0.2-1.3) mg/dL AST (17-59) U/L ALT (21-72) U/L Alkaline Phosphatase (38-126) U/L Total Protein (6.3-8.3) g/dL Albumin (3.5-5.0) g/dL Globulin (2.2-3.9) gm/dL Albumin/Globulin Ratio (1.0-2.1) Blood Type 08/01/17 Range/Units 17:33 WBC (4.8-10.8) K/uL RBC (4.40-5.90) Mil/uL Hgb (12.0-18.0) g/dL Hct (35.0-51.0) % MCV (80.0-94.0) fL MCH (27.0-31.0) pg MCHC (33.0-37.0) g/dL RDW (11.5-14.5) % Plt Count (130-400) K/uL MPV (7.2-11.7) fL Neut % (Auto) (50.0-75.0) % Lymph % (Auto) (20.0-40.0) % Hughes % (Auto) (0.0-10.0) % Eos % (Auto) (0.0-4.0) % Baso % (Auto) (0.0-2.0) % Neut # (Auto) (1.8-7.0) K/uL Lymph # (Auto) (1.0-4.3) K/uL Hughes # (Auto) (0.0-0.8) K/uL Eos # (Auto) (0.0-0.7) K/uL Baso # (Auto) (0.0-0.2) K/uL Sodium (132-148) mmol/L Potassium (3.6-5.2) mmol/L Chloride (98-107) mmol/L Carbon Dioxide (22-30) mmol/L Anion Gap (10-20) BUN (9-20) mg/dL Creatinine (0.8-1.5) mg/dL Est GFR ( Amer) Est GFR (Non-Af Amer) POC Glucose (mg/dL) 227 H (65-110) mg/dL Random Glucose (75-110) mg/dL Calcium (8.6-10.4) mg/dl Phosphorus (2.5-4.5) mg/dL Magnesium (1.6-2.3) mg/dL Total Bilirubin (0.2-1.3) mg/dL AST (17-59) U/L ALT (21-72) U/L Alkaline Phosphatase (38-126) U/L Total Protein (6.3-8.3) g/dL Albumin (3.5-5.0) g/dL Globulin (2.2-3.9) gm/dL Albumin/Globulin Ratio (1.0-2.1) Blood Type Laboratory Results - last 24 hr 08/01/17 08/01/17 08/02/17 17:33 23:19 06:07 WBC RBC Hgb Hct MCV MCH MCHC RDW Plt Count MPV Neut % (Auto) Lymph % (Auto) Hughes % (Auto) Eos % (Auto) Baso % (Auto) Neut # (Auto) Lymph # (Auto) Hughes # (Auto) Eos # (Auto) Baso # (Auto) Sodium Potassium Chloride Carbon Dioxide Anion Gap BUN Creatinine Est GFR ( Amer) Est GFR (Non-Af Amer) POC Glucose (mg/dL) 227 H 149 H 222 H Random Glucose Calcium Phosphorus Magnesium Total Bilirubin AST ALT Alkaline Phosphatase Total Protein Albumin Globulin Albumin/Globulin Ratio Blood Type 08/02/17 08/02/17 08/02/17 10:41 10:41 11:52 WBC 10.1 RBC 2.36 L Hgb 7.7 L Hct 23.0 L MCV 97.4 H MCH 32.5 H MCHC 33.4 RDW 19.9 H Plt Count 179 MPV 7.9 Neut % (Auto) 71.0 Lymph % (Auto) 14.4 L Hughes % (Auto) 10.9 H Eos % (Auto) 2.9 Baso % (Auto) 0.8 Neut # (Auto) 7.1 H Lymph # (Auto) 1.4 Hughes # (Auto) 1.1 H Eos # (Auto) 0.3 Baso # (Auto) 0.1 Sodium 141 Potassium 3.8 Chloride 101 Carbon Dioxide 33 H Anion Gap 10 BUN 25 H Creatinine 3.9 H Est GFR ( Amer) 18 Est GFR (Non-Af Amer) 15 POC Glucose (mg/dL) 116 H Random Glucose 157 H Calcium 7.9 L Phosphorus 3.1 Magnesium 2.3 Total Bilirubin 0.5 AST 33 ALT 28 Alkaline Phosphatase 112 Total Protein 5.6 L Albumin 2.6 L Globulin 3.1 Albumin/Globulin Ratio 0.8 L Blood Type 08/02/17 12:15 WBC RBC Hgb Hct MCV MCH MCHC RDW Plt Count MPV Neut % (Auto) Lymph % (Auto) Hughes % (Auto) Eos % (Auto) Baso % (Auto) Neut # (Auto) Lymph # (Auto) Hughes # (Auto) Eos # (Auto) Baso # (Auto) Sodium Potassium Chloride Carbon Dioxide Anion Gap BUN Creatinine Est GFR ( Amer) Est GFR (Non-Af Amer) POC Glucose (mg/dL) Random Glucose Calcium Phosphorus Magnesium Total Bilirubin AST ALT Alkaline Phosphatase Total Protein Albumin Globulin Albumin/Globulin Ratio Blood Type B POSITIVE Fingerstick Blood Sugar Results: 116 Critical Care Progress Note - Nutrition Nutrition: Nutrition Category Date Time Status NPO Diet [DIET] Diets 07/31/17 Breakfast Active Assessment/Plan - Assessment and Plan (Free Text) Assessment: This is a 76 year old male with HTN, DM, Hypercholesterimia, CAD, CABG with 5 vessel disease, ESRD on peritoneal dialysis, with symptomatic bradycardia s/p pacemaker placed [address] Valencia, hypothyroidism, who presented to the ED on 07/28 for dysphagia and slurred speech, was diagnosed with Yu's Palsy. Patient is with persistent AMS 2/2 Metabolic Encephalopathy. Started on HD. S/P left AVF, right permacath 07/31. Plan: Neuro: - Extubated 07/27/17 - NGT in place A: Metabolic Encephalopathy Neurology consulted - Dr. 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 - Started Keppra 250mg PO BID A: Right Yu's Palsy Neurology: Dr. Thompson - on board Imaging: - Head CT: 1. Confluent area of low attenuation within the right frontal subcortical white matter suggestive for chronic ischemic change. 2. Scattered areas of chronic microvascular ischemic change. 3. Prominent ventricles. 4. No evidence of acute intracranial hemorrhage. If there is persistent concern for acute ischemic change, correlation with MRI is recommended. - Head/ Neck CTA: There is nonvisualization origin left vertebral artery. Left vertebral artery reconstitutes at approximately the lower C5 level and is seen on as a patent vessel to the level of the C2 segment where the vertebral artery is no longer visualized and appears to be occluded. Findings could represent sequela of atherosclerotic disease or dissection. Clinical correlation recommended. Right vertebral artery is patent throughout. The common carotid arteries, carotid bifurcations and internal carotid artery is widely patent. There is a calcified atherosclerotic plaque both cavernous carotid segments. The the at anterior middle and posterior cerebral arteries are patent. No evidence of large aneurysm nor vascular malformation. - Not able to have MRI - due to recent PPM placement - 07/[address]: No intracranial mass, hemorrhage or evidence of acute infarct. Right frontal encephalomalacia, possibly old MCA territory infarct. Small nonspecific right mastoid effusion. Chronic white matter ischemic change. A: Hx CVA -Crestor 10mg- ASA 81mg, Plavix 75mg- held due to dropping hemoglobin Cardio: A: HTN, CAD, CABG with 5 vessel disease, with symptomatic bradycardia s/p pacemaker placed [address] Valencia - Recent ECHO performed in Dr. Elizabeth's office as outpatient - Coreg 6.25mg PO BID, Cozaar 25mg, Crestor 10mg - ASA 81mg, Plavix 75mg- held due to dropping hemoglobin Pulm: A: Acute Respiratory Failure - Extubated 07/27/17 Endo: A: Hypothyroidism - Resumed Synthroid 50 mcg A: DM - Accuchecks - ISS - medium - A1C 8.4 GI: A: Cirrhosis, etiology unclear -Dr. Irvin consulted Renal: A: ESRD on HD with new L AVF, Right Permacath (MWF) --Nephrology consulted - Dr. Benson - Previously on peritoneal dialysis, removed PD catheter 07/31 - Procrit, Phoslo - S/P AVF, Right Permacath 07/31 Heme/Onc A: Anemia of Chronic Disease - Baseline hemoglobin 9s - Continue with Procrit - S/P transfused 1 unit PRBC 07/23, transfused 1 unit 08/02 - during dialysis - Ferrlecit daily x 1 week - Stool occult- negative ID: A: Sepsis 2/2 Otitis Media with right mastoid effusion? Mastoiditis? r/o Meningitis ID consulted - Dr. Gabe Villegas - Workup up ordered - negative to date - Vanco 500mg on dialysis (07/19), and Acyclovir 400mg Q12 (07/22) - LAST DOSES Prophylaxis: - Pepcid 2/2 to steroids - Heparin during HD - Diet: NGT in place; failed swallow eval x 2 - PT/OT DW with Tameka Almanza, PGY-1 <Amy Ortega M - Last Filed: 08/02/17 16:43> CCU Objective - Vital Signs / Intake & Output Vital Signs (Last 4 hours): Vital Signs Temp Pulse Pulse Resp BP BP Pulse Ox 08/02/17 16:32 98.2 F 94 H 22 131/56 L 08/02/17 16:26 96 H 26 H 131/56 L 99 08/02/17 15:26 95 H 28 H 138/58 L 08/02/17 14:25 92 H 21 138/53 L 98 08/02/17 14:10 90 25 H 135/54 L 100 08/02/17 13:10 92 H 22 142/58 L 100 08/02/17 13:05 91 H 20 147/52 L 100 08/02/17 12:55 91 H 22 147/52 L 96 08/02/17 12:50 90 22 146/55 L 100 Intake and Output (Last 8hrs): Intake & Output 08/02/17 08/02/17 08/02/17 06:59 14:59 22:59 Intake Total 340 350 30 Output Total 0 Balance 340 350 30 Weight 154 lb 1.65 oz Intake: Intake, IV Amount 100 200 Right Forearm 100 200 Tube Feeding 240 150 30 Blood Product 0 Red Blood Cells Cpd As1 0 Lr Unit [id number] Output: Urine 0 Urine, Voided 0 Other: # Voids Urine, Voided 0 0 # Bowel Movements 0 0 - Medications Active Medications: Active Medications Generic Name Dose Route Start Last Admin Trade Name Freq PRN Reason Stop Dose Admin Acetaminophen 650 mg 07/24/17 07:42 08/02/17 00:25 Tylenol 325mg Tab PO 650 mg Q6 PRN Administration Fever >100.4 F Albuterol/Ipratropium 3 ml 07/13/17 14:00 08/02/17 13:28 Duoneb 3 Mg/0.5 Mg (3 Ml) Ud INH 3 ml RQ6 JAYLA Administration Artificial Tears 0 ml 07/13/17 22:00 08/02/17 09:32 Artificial Tears OD 1 drop Q3H PRN Administration Dry eyes Ascorbic Acid 500 mg 08/02/17 10:00 08/02/17 09:35 Vitamin C 500 Mg Tab PO 500 mg DAILY [facility] Administration Calcium Acetate 667 mg 07/13/17 12:00 08/02/17 12:23 Phoslo PO 667 mg TIDCC J[facility]LA Administration Carvedilol 6.25 mg 07/23/17 18:00 08/02/17 09:32 Coreg PO Not Given BID [facility] Clopidogrel Bisulfate 75 mg 07/15/17 10:00 08/02/17 09:34 Plavix PO 75 mg DAILY [facility] Administration Epoetin Kumar 10,000 unit 07/16/17 09:00 08/01/17 12:30 Procrit SC 10,000 unit MWF [facility] Administration Ferric Sodium Gluconate Complex 125 mg 08/01/17 13:45 08/02/17 14:52 Ferrlecit IVPB 08/09/17 13:46 125 mg DAILY [facility] Administration Folic Acid 1 mg 08/02/17 10:00 08/02/17 09:33 Folic Acid PO 1 mg DAILY [facility] Administration Acyclovir 200 mg/ Sodium 100 mls @ 100 mls/hr 07/22/17 13:00 08/02/17 13:58 Chloride IV 08/02/17 23:59 100 mls/hr Q12H [facility] Administration Protocol Insulin Human Regular 0 unit 07/15/17 07:32 08/02/17 11:59 Novolin R SC Not Given Q6 [facility] Protocol Levothyroxine Sodium 50 mcg 07/14/17 06:30 08/02/17 06:15 Synthroid PO 50 mcg DAILY@0630 [facility] Administration Losartan Potassium 25 mg 07/25/17 15:00 08/02/17 09:32 Cozaar PO Not Given DAILY [facility] Multivitamins/Vitamin C 5 ml 08/02/17 10:00 08/02/17 09:33 Multi-Delyn Liquid PO 5 ml DAILY [facility] Administration Nystatin 1 ea 07/29/17 14:00 08/02/17 13:59 Mycostatin Cream TOP 1 applic TID [facility] Administration Pantoprazole Sodium 40 mg 08/02/17 11:45 08/02/17 12:32 Protonix Inj IVP Not Given Q12 [facility] Saccharomyces Boulardii 250 mg 07/28/17 22:00 08/02/17 09:32 Florastor PO 250 mg Q12 [facility] Administration Thiamine HCl 100 mg 08/02/17 10:00 08/02/17 09:34 Vitamin B1 Tab PO 100 mg DAILY [facility] Administration Vitamin A 1 ea 07/19/17 18:00 08/02/17 09:34 Vitamin A & D Oint Ud Foilpak TOP 1 ea BID [facility] Administration Zinc Sulfate 220 mg 08/02/17 10:00 08/02/17 09:35 Zinc Sulfate 220 Mg Cap PO 220 mg DAILY [facility] Administration - Patient Studies Lab Studies: Lab Studies 08/02/17 08/02/17 08/02/17 Range/Units 12:15 11:52 10:41 WBC (4.8-10.8) K/uL RBC (4.40-5.90) Mil/uL Hgb (12.0-18.0) g/dL Hct (35.0-51.0) % MCV (80.0-94.0) fL MCH (27.0-31.0) pg MCHC (33.0-37.0) g/dL RDW (11.5-14.5) % Plt Count (130-400) K/uL MPV (7.2-11.7) fL Neut % (Auto) (50.0-75.0) % Lymph % (Auto) (20.0-40.0) % Hughes % (Auto) (0.0-10.0) % Eos % (Auto) (0.0-4.0) % Baso % (Auto) (0.0-2.0) % Neut # (Auto) (1.8-7.0) K/uL Lymph # (Auto) (1.0-4.3) K/uL Hughes # (Auto) (0.0-0.8) K/uL Eos # (Auto) (0.0-0.7) K/uL Baso # (Auto) (0.0-0.2) K/uL Sodium 141 (132-148) mmol/L Potassium 3.8 (3.6-5.2) mmol/L Chloride 101 (98-107) mmol/L Carbon Dioxide 33 H (22-30) mmol/L Anion Gap 10 (10-20) BUN 25 H (9-20) mg/dL Creatinine 3.9 H (0.8-1.5) mg/dL Est GFR ( Amer) 18 Est GFR (Non-Af Amer) 15 POC Glucose (mg/dL) 116 H (65-110) mg/dL Random Glucose 157 H (75-110) mg/dL Calcium 7.9 L (8.6-10.4) mg/dl Phosphorus 3.1 (2.5-4.5) mg/dL Magnesium 2.3 (1.6-2.3) mg/dL Total Bilirubin 0.5 (0.2-1.3) mg/dL AST 33 (17-59) U/L ALT 28 (21-72) U/L Alkaline Phosphatase 112 (38-126) U/L Total Protein 5.6 L (6.3-8.3) g/dL Albumin 2.6 L (3.5-5.0) g/dL Globulin 3.1 (2.2-3.9) gm/dL Albumin/Globulin Ratio 0.8 L (1.0-2.1) Blood Type B POSITIVE Antibody Screen Negative 08/02/17 08/02/17 08/01/17 Range/Units 10:41 06:07 23:19 WBC 10.1 (4.8-10.8) K/uL RBC 2.36 L (4.40-5.90) Mil/uL Hgb 7.7 L (12.0-18.0) g/dL Hct 23.0 L (35.0-51.0) % MCV 97.4 H (80.0-94.0) fL MCH 32.5 H (27.0-31.0) pg MCHC 33.4 (33.0-37.0) g/dL RDW 19.9 H (11.5-14.5) % Plt Count 179 (130-400) K/uL MPV 7.9 (7.2-11.7) fL Neut % (Auto) 71.0 (50.0-75.0) % Lymph % (Auto) 14.4 L (20.0-40.0) % Hughes % (Auto) 10.9 H (0.0-10.0) % Eos % (Auto) 2.9 (0.0-4.0) % Baso % (Auto) 0.8 (0.0-2.0) % Neut # (Auto) 7.1 H (1.8-7.0) K/uL Lymph # (Auto) 1.4 (1.0-4.3) K/uL Hughes # (Auto) 1.1 H (0.0-0.8) K/uL Eos # (Auto) 0.3 (0.0-0.7) K/uL Baso # (Auto) 0.1 (0.0-0.2) K/uL Sodium (132-148) mmol/L Potassium (3.6-5.2) mmol/L Chloride (98-107) mmol/L Carbon Dioxide (22-30) mmol/L Anion Gap (10-20) BUN (9-20) mg/dL Creatinine (0.8-1.5) mg/dL Est GFR ( Amer) Est GFR (Non-Af Amer) POC Glucose (mg/dL) 222 H 149 H (65-110) mg/dL Random Glucose (75-110) mg/dL Calcium (8.6-10.4) mg/dl Phosphorus (2.5-4.5) mg/dL Magnesium (1.6-2.3) mg/dL Total Bilirubin (0.2-1.3) mg/dL AST (17-59) U/L ALT (21-72) U/L Alkaline Phosphatase (38-126) U/L Total Protein (6.3-8.3) g/dL Albumin (3.5-5.0) g/dL Globulin (2.2-3.9) gm/dL Albumin/Globulin Ratio (1.0-2.1) Blood Type Antibody Screen 08/01/17 Range/Units 17:33 WBC (4.8-10.8) K/uL RBC (4.40-5.90) Mil/uL Hgb (12.0-18.0) g/dL Hct (35.0-51.0) % MCV (80.0-94.0) fL MCH (27.0-31.0) pg MCHC (33.0-37.0) g/dL RDW (11.5-14.5) % Plt Count (130-400) K/uL MPV (7.2-11.7) fL Neut % (Auto) (50.0-75.0) % Lymph % (Auto) (20.0-40.0) % Hughes % (Auto) (0.0-10.0) % Eos % (Auto) (0.0-4.0) % Baso % (Auto) (0.0-2.0) % Neut # (Auto) (1.8-7.0) K/uL Lymph # (Auto) (1.0-4.3) K/uL Hughes # (Auto) (0.0-0.8) K/uL Eos # (Auto) (0.0-0.7) K/uL Baso # (Auto) (0.0-0.2) K/uL Sodium (132-148) mmol/L Potassium (3.6-5.2) mmol/L Chloride (98-107) mmol/L Carbon Dioxide (22-30) mmol/L Anion Gap (10-20) BUN (9-20) mg/dL Creatinine (0.8-1.5) mg/dL Est GFR ( Amer) Est GFR (Non-Af Amer) POC Glucose (mg/dL) 227 H (65-110) mg/dL Random Glucose (75-110) mg/dL Calcium (8.6-10.4) mg/dl Phosphorus (2.5-4.5) mg/dL Magnesium (1.6-2.3) mg/dL Total Bilirubin (0.2-1.3) mg/dL AST (17-59) U/L ALT (21-72) U/L Alkaline Phosphatase (38-126) U/L Total Protein (6.3-8.3) g/dL Albumin (3.5-5.0) g/dL Globulin (2.2-3.9) gm/dL Albumin/Globulin Ratio (1.0-2.1) Blood Type Antibody Screen Laboratory Results - last 24 hr 08/01/17 08/01/17 08/02/17 17:33 23:19 06:07 WBC RBC Hgb Hct MCV MCH MCHC RDW Plt Count MPV Neut % (Auto) Lymph % (Auto) Hughes % (Auto) Eos % (Auto) Baso % (Auto) Neut # (Auto) Lymph # (Auto) Hughes # (Auto) Eos # (Auto) Baso # (Auto) Sodium Potassium Chloride Carbon Dioxide Anion Gap BUN Creatinine Est GFR ( Amer) Est GFR (Non-Af Amer) POC Glucose (mg/dL) 227 H 149 H 222 H Random Glucose Calcium Phosphorus Magnesium Total Bilirubin AST ALT Alkaline Phosphatase Total Protein Albumin Globulin Albumin/Globulin Ratio Blood Type Antibody Screen 08/02/17 08/02/17 08/02/17 10:41 10:41 11:52 WBC 10.1 RBC 2.36 L Hgb 7.7 L Hct 23.0 L MCV 97.4 H MCH 32.5 H MCHC 33.4 RDW 19.9 H Plt Count 179 MPV 7.9 Neut % (Auto) 71.0 Lymph % (Auto) 14.4 L Hughes % (Auto) 10.9 H Eos % (Auto) 2.9 Baso % (Auto) 0.8 Neut # (Auto) 7.1 H Lymph # (Auto) 1.4 Hughes # (Auto) 1.1 H Eos # (Auto) 0.3 Baso # (Auto) 0.1 Sodium 141 Potassium 3.8 Chloride 101 Carbon Dioxide 33 H Anion Gap 10 BUN 25 H Creatinine 3.9 H Est GFR ( Amer) 18 Est GFR (Non-Af Amer) 15 POC Glucose (mg/dL) 116 H Random Glucose 157 H Calcium 7.9 L Phosphorus 3.1 Magnesium 2.3 Total Bilirubin 0.5 AST 33 ALT 28 Alkaline Phosphatase 112 Total Protein 5.6 L Albumin 2.6 L Globulin 3.1 Albumin/Globulin Ratio 0.8 L Blood Type Antibody Screen 08/02/17 12:15 WBC RBC Hgb Hct MCV MCH MCHC RDW Plt Count MPV Neut % (Auto) Lymph % (Auto) Hughes % (Auto) Eos % (Auto) Baso % (Auto) Neut # (Auto) Lymph # (Auto) Hughes # (Auto) Eos # (Auto) Baso # (Auto) Sodium Potassium Chloride Carbon Dioxide Anion Gap BUN Creatinine Est GFR ( Amer) Est GFR (Non-Af Amer) POC Glucose (mg/dL) Random Glucose Calcium Phosphorus Magnesium Total Bilirubin AST ALT Alkaline Phosphatase Total Protein Albumin Globulin Albumin/Globulin Ratio Blood Type B POSITIVE Antibody Screen Negative Critical Care Progress Note - Nutrition Nutrition: Nutrition Category Date Time Status NPO Diet [DIET] Diets 07/31/17 Breakfast Active Assessment/Plan - Assessment and Plan (Free Text) Plan: Patient seen and examined at bedside. Patient more awake alert today. -Febrile overnight - suspect aspiration -continue abx a per ID -contine ng tube, consider peg placement -continue oral care -continue aspiration precautiosn -continue HD as per renal -Patient remains hemodynamically stable. - Date & Time Date: 08/02/17 Time: 16:43
[2017-08-02] MEDS: Ferric Sodium Gluconat Complex 62.5 mg/5 ml Vial IVPB SCH (14:52)
--- NOTE | 2017-08-02 17:18 | RAD ---
HISTORY: COMPARISON: 07/30/2017. TECHNIQUE: Chest PA and lateral FINDINGS: LINES AND TUBES: The right dialysis catheter terminates in the right atrium. The nasogastric tube terminates in the stomach. LUNG AND PLEURA: The lungs are well inflated and there is mild pulmonary venous congestion. There are bilateral layering pleural effusions. HEART AND MEDIASTINUM: The heart is enlarged. Status post CABG. Stable position of left-sided pacemaker. The hilar and mediastinal contours are within normal limits. SKELETAL STRUCTURES: The bony structures are within normal limits for the patient's age. VISUALIZED UPPER ABDOMEN: Normal. OTHER FINDINGS: None. IMPRESSION: Findings are compatible with mild congestive heart failure. No significant interval change.
--- NOTE | 2017-08-02 19:50 | CP.PCM.PN ---
Subjective - Date & Time of Evaluation Date of Evaluation: 08/02/17 Time of Evaluation: 19:50 - Subjective Subjective: Patient is morning got extra hemodialysis. He is now getting blood transfusion. Still mostly sleepy. Edema noted. Slight improvement. Patient is responding to stimuli, he is able to cough, but still extremely weakness noted. NG tube noted. Tolerating the feeding. But he is repeatedly failing the swallow, so we spoke to the family, and suggested PEG tube feeding, family probably will agree on Friday. On examination: Blood pressure stable. 2 L nasal cannula oxygen saturation is 100%. Chest bilateral wheezing noted. Regular heart sound. Abdominal tenderness negative Pedal edema present Today labs reviewed WBC is normal. Hemoglobin is 7.7. X-ray of the lung showing bibasilar atelectatic changes, haziness present, but slightly better Assessment and recommendation: 77-year-old male with a history of CAD, CABG, hypertension, hypercholesterolemia , end-stage renal disease currently on hemodialysis. Patient also received AV fistula on the left upper extremity. Patient is still continues to experiencing weakness, metabolic encephalopathy noted. Uremia present. On IV antibiotic. I will add modafinil again. Also patient was on Keppra, which was discontinued, will resume it. Discussed with the family members about the PEG tube. Patient will be followed up by the hospitalist for medical management. I spoke to the patient family Objective - Vital Signs/Intake and Output Vital Signs (last 24 hours): Temp Pulse Resp BP Pulse Ox 98.5 F 83 24 126/57 L 100 08/02/17 19:48 08/02/17 19:48 08/02/17 19:48 08/02/17 19:48 08/02/17 19:16 Intake and Output: 08/02/17 08/03/17 18:59 06:59 Intake Total 730 505 Output Total 0 Balance 730 505 - Medications Medications: Current Medications Acetaminophen (Tylenol 325mg Tab) 650 mg PO Q6 PRN PRN Reason: Fever >100.4 F Last Admin: 08/02/17 00:25 Dose: 650 mg Albuterol/Ipratropium (Duoneb 3 Mg/0.5 Mg (3 Ml) Ud) 3 ml INH RQ6 [facility] Last Admin: 08/02/17 13:28 Dose: 3 ml Artificial Tears (Artificial Tears) 0 ml OD Q3H PRN PRN Reason: Dry eyes Last Admin: 08/02/17 09:32 Dose: 1 drop Ascorbic Acid (Vitamin C 500 Mg Tab) 500 mg PO DAILY [facility] Last Admin: 08/02/17 09:35 Dose: 500 mg Calcium Acetate (Phoslo) 667 mg PO TIDCC [facility] Last Admin: 08/02/17 17:00 Dose: 667 mg Carvedilol (Coreg) 6.25 mg PO BID [facility] Last Admin: 08/02/17 17:00 Dose: 6.25 mg Clopidogrel Bisulfate (Plavix) 75 mg PO DAILY [facility] Last Admin: 08/02/17 09:34 Dose: 75 mg Epoetin Kumar (Procrit) 10,000 unit SC MWF [facility] Last Admin: 08/01/17 12:30 Dose: 10,000 unit Ferric Sodium Gluconate Complex (Ferrlecit) 125 mg IVPB DAILY [facility] Stop: 08/09/17 13:46 Last Admin: 08/02/17 14:52 Dose: 125 mg Folic Acid (Folic Acid) 1 mg PO DAILY [facility] Last Admin: 08/02/17 09:33 Dose: 1 mg Acyclovir 200 mg/ Sodium (Chloride) 100 mls @ 100 mls/hr IV Q12H [facility] PRN Reason: Protocol Stop: 08/02/17 23:59 Last Admin: 08/02/17 13:58 Dose: 100 mls/hr Insulin Human Regular (Novolin R) 0 unit SC Q6 [facility] PRN Reason: Protocol Last Admin: 08/02/17 17:58 Dose: 2 unit Levothyroxine Sodium (Synthroid) 50 mcg PO DAILY@0630 [facility] Last Admin: 08/02/17 06:15 Dose: 50 mcg Losartan Potassium (Cozaar) 25 mg PO DAILY [facility] Last Admin: 08/02/17 09:32 Dose: Not Given Multivitamins/Vitamin C (Multi-Delyn Liquid) 5 ml PO DAILY [facility] Last Admin: 08/02/17 09:33 Dose: 5 ml Nystatin (Mycostatin Cream) 1 ea TOP TID [facility] Last Admin: 08/02/17 17:00 Dose: 1 applic Pantoprazole Sodium (Protonix Inj) 40 mg IVP Q12 [facility] Last Admin: 08/02/17 12:32 Dose: Not Given Saccharomyces Boulardii (Florastor) 250 mg PO Q12 [facility] Last Admin: 08/02/17 09:32 Dose: 250 mg Thiamine HCl (Vitamin B1 Tab) 100 mg PO DAILY [facility] Last Admin: 08/02/17 09:34 Dose: 100 mg Vitamin A (Vitamin A & D Oint Ud Foilpak) 1 ea TOP BID [facility] Last Admin: 08/02/17 17:00 Dose: 1 ea Zinc Sulfate (Zinc Sulfate 220 Mg Cap) 220 mg PO DAILY [facility] Last Admin: 08/02/17 09:35 Dose: 220 mg - Labs Labs: 08/02/17 10:41 08/02/17 10:41 PT 10.6 SECONDS (9.7-12.2) 07/31/17 06:21 INR 1.0 07/31/17 06:21 APTT 27 SECONDS (21-34) 07/31/17 06:21
--- NOTE | 2017-08-02 21:11 | CP.PCM.PN ---
Subjective - Date & Time of Evaluation Date of Evaluation: 08/02/17 Time of Evaluation: 21:10 - Subjective Subjective: Patient seen and examined at bedside. AFEBRILE PT LETHARGIC TODAY. FAILED SWALLOW EVAL. S/P AVF with Dr. Davis ON 07/31/17 . LABS -NOTED H/H 7.7/23.O LOW WBC 10.1 Objective - Vital Signs/Intake and Output Vital Signs (last 24 hours): Temp Pulse Resp BP Pulse Ox 98.6 F 90 28 H 139/61 99 08/02/17 20:00 08/02/17 21:03 08/02/17 21:03 08/02/17 21:03 08/02/17 21:03 Intake and Output: 08/02/17 08/03/17 18:59 06:59 Intake Total 730 565 Output Total 0 Balance 730 565 - Medications Medications: Current Medications Acetaminophen (Tylenol 325mg Tab) 650 mg PO Q6 PRN PRN Reason: Fever >100.4 F Last Admin: 08/02/17 00:25 Dose: 650 mg Albuterol/Ipratropium (Duoneb 3 Mg/0.5 Mg (3 Ml) Ud) 3 ml INH RQ6 [facility] Last Admin: 08/02/17 19:54 Dose: 3 ml Artificial Tears (Artificial Tears) 0 ml OD Q3H PRN PRN Reason: Dry eyes Last Admin: 08/02/17 09:32 Dose: 1 drop Ascorbic Acid (Vitamin C 500 Mg Tab) 500 mg PO DAILY [facility] Last Admin: 08/02/17 09:35 Dose: 500 mg Calcium Acetate (Phoslo) 667 mg PO TIDCC [facility] Last Admin: 08/02/17 17:00 Dose: 667 mg Carvedilol (Coreg) 6.25 mg PO BID [facility] Last Admin: 08/02/17 17:00 Dose: 6.25 mg Clopidogrel Bisulfate (Plavix) 75 mg PO DAILY [facility] Last Admin: 08/02/17 09:34 Dose: 75 mg Epoetin Kumar (Procrit) 10,000 unit SC MWF [facility] Last Admin: 08/01/17 12:30 Dose: 10,000 unit Ferric Sodium Gluconate Complex (Ferrlecit) 125 mg IVPB DAILY [facility] Stop: 08/09/17 13:46 Last Admin: 08/02/17 14:52 Dose: 125 mg Folic Acid (Folic Acid) 1 mg PO DAILY [facility] Last Admin: 08/02/17 09:33 Dose: 1 mg Acyclovir 200 mg/ Sodium (Chloride) 100 mls @ 100 mls/hr IV Q12H [facility] PRN Reason: Protocol Stop: 08/02/17 23:59 Last Admin: 08/02/17 13:58 Dose: 100 mls/hr Insulin Human Regular (Novolin R) 0 unit SC Q6 [facility] PRN Reason: Protocol Last Admin: 08/02/17 17:58 Dose: 2 unit Levetiracetam (Keppra) 250 mg PO BID [facility] Levothyroxine Sodium (Synthroid) 50 mcg PO DAILY@0630 [facility] Last Admin: 08/02/17 06:15 Dose: 50 mcg Losartan Potassium (Cozaar) 25 mg PO DAILY [facility] Last Admin: 08/02/17 09:32 Dose: Not Given Modafinil (Provigil) 50 mg PO DAILY [facility] Multivitamins/Vitamin C (Multi-Delyn Liquid) 5 ml PO DAILY [facility] Last Admin: 08/02/17 09:33 Dose: 5 ml Nystatin (Mycostatin Cream) 1 ea TOP TID [facility] Last Admin: 08/02/17 17:00 Dose: 1 applic Pantoprazole Sodium (Protonix Inj) 40 mg IVP Q12 [facility] Last Admin: 08/02/17 12:32 Dose: Not Given Saccharomyces Boulardii (Florastor) 250 mg PO Q12 [facility] Last Admin: 08/02/17 09:32 Dose: 250 mg Thiamine HCl (Vitamin B1 Tab) 100 mg PO DAILY [facility] Last Admin: 08/02/17 09:34 Dose: 100 mg Vitamin A (Vitamin A & D Oint Ud Foilpak) 1 ea TOP BID [facility] Last Admin: 08/02/17 17:00 Dose: 1 ea Zinc Sulfate (Zinc Sulfate 220 Mg Cap) 220 mg PO DAILY [facility] Last Admin: 08/02/17 09:35 Dose: 220 mg - Labs Labs: 08/02/17 10:41 08/02/17 10:41 PT 10.6 SECONDS (9.7-12.2) 07/31/17 06:21 INR 1.0 07/31/17 06:21 APTT 27 SECONDS (21-34) 07/31/17 06:21 - Constitutional Appears: No Acute Distress, Chronically Ill - Head Exam Head Exam: NORMAL INSPECTION - Eye Exam Eye Exam: EOMI, PERRL - ENT Exam ENT Exam: Normal Oropharynx - Respiratory Exam Respiratory Exam: Decreased Breath Sounds, NORMAL BREATHING PATTERN - Cardiovascular Exam Cardiovascular Exam: REGULAR RHYTHM, +S1, +S2 - GI/Abdominal Exam GI & Abdominal Exam: Soft, Normal Bowel Sounds - Extremities Exam Extremities Exam: absent: Calf Tenderness, Pedal Edema - Neurological Exam Neurological Exam: Awake - Psychiatric Exam Psychiatric exam: Normal Mood Assessment and Plan (1) Toxic metabolic encephalopathy Assessment & Plan: IMPROVING. OFF IV VANCOMYCIN 08/01/17 DC IV ACYCLOVIR 08/02/17 Status: Acute (2) Yu palsy Assessment & Plan: FAILED SWALLOW EVAL . PT TO [facility] PEG PER FAMILY. 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 S/P LT ARM AVF 07/31/17. PT GIVEN I UNIT PRBC ON 08/02/17 ON HD. Status: Acute (5) Heart block AV complete Status: Acute
--- NOTE | 2017-08-02 22:27 | CP.PCM.PN ---
Subjective - Date & Time of Evaluation Date of Evaluation: 08/02/17 Time of Evaluation: 13:20 - Subjective Subjective: Patient seen and examined at bedside. S/p Hemodialysis Slightly lethargic Physical Examination - Physical Exam Head: Positive for: Atraumatic, Normocephalic Pupils: Positive for: PERRL Extroacular Muscles: Positive for: EOMI Conjunctiva: Positive for: Normal Mouth: Positive for: Moist Mucous Membranes Pharnyx: Positive for: Uvular Deviation (right) Nose (Internal): Positive for: Other (NGT in place) Neck: Positive for: Normal Range of Motion, Other Respiratory/Chest: Positive for: Clear to Auscultation, Good Air Exchange. Negative for: Respiratory Distress Cardiovascular: Positive for: Tachycardic, Other (Right permacath ) Abdomen: Positive for: Normal Bowel Sounds, Other (peritoneal catheter removed, dressing C/D/I) Back: Positive for: Normal Inspection Upper Extremity: Positive for: Normal Inspection, NORMAL PULSES, Neurovascularly Intact, Capillary Refill < 2s, Other (left arm AVF ). Negative for: Cyanosis, Edema, Tenderness, Swelling, Erythema Lower Extremity: Positive for: Normal Inspection, NORMAL PULSES. Negative for: Edema, CALF TENDERNESS, Tenderness, Swelling, Erythema Neurological: Positive for: Other (right facial droop ) Skin: Positive for: Warm, Dry, Normal Color. Negative for: Rashes Psychiatric: Positive for: Alert, Lethargic Objective - Vital Signs/Intake and Output Vital Signs (last 24 hours): Temp Pulse Resp BP Pulse Ox 98.6 F 87 19 124/51 L 99 08/02/17 20:00 08/02/17 22:03 08/02/17 22:03 08/02/17 22:03 08/02/17 22:03 Intake and Output: 08/02/17 08/03/17 18:59 06:59 Intake Total 730 595 Output Total 0 Balance 730 595 - Medications Medications: Current Medications Acetaminophen (Tylenol 325mg Tab) 650 mg PO Q6 PRN PRN Reason: Fever >100.4 F Last Admin: 08/02/17 00:25 Dose: 650 mg Albuterol/Ipratropium (Duoneb 3 Mg/0.5 Mg (3 Ml) Ud) 3 ml INH RQ6 [facility] Last Admin: 06/23/18 19:54 Dose: 3 ml Artificial Tears (Artificial Tears) 0 ml OD Q3H PRN PRN Reason: Dry eyes Last Admin: 08/02/17 09:32 Dose: 1 drop Ascorbic Acid (Vitamin C 500 Mg Tab) 500 mg PO DAILY [facility] Last Admin: 08/02/17 09:35 Dose: 500 mg Calcium Acetate (Phoslo) 667 mg PO TIDCC [facility] Last Admin: 08/02/17 17:00 Dose: 667 mg Carvedilol (Coreg) 6.25 mg PO BID [facility] Last Admin: 08/02/17 17:00 Dose: 6.25 mg Clopidogrel Bisulfate (Plavix) 75 mg PO DAILY [facility] Last Admin: 08/02/17 09:34 Dose: 75 mg Epoetin Kumar (Procrit) 10,000 unit SC MWF [facility] Last Admin: 08/01/17 12:30 Dose: 10,000 unit Ferric Sodium Gluconate Complex (Ferrlecit) 125 mg IVPB DAILY [facility] Stop: 08/09/17 13:46 Last Admin: 08/02/17 14:52 Dose: 125 mg Folic Acid (Folic Acid) 1 mg PO DAILY [facility] Last Admin: 08/02/17 09:33 Dose: 1 mg Acyclovir 200 mg/ Sodium (Chloride) 100 mls @ 100 mls/hr IV Q12H [facility] PRN Reason: Protocol Stop: 08/02/17 23:59 Last Admin: 08/02/17 13:58 Dose: 100 mls/hr Insulin Human Regular (Novolin R) 0 unit SC Q6 [facility] PRN Reason: Protocol Last Admin: 08/02/17 17:58 Dose: 2 unit Levetiracetam (Keppra) 250 mg PO BID [facility] Levothyroxine Sodium (Synthroid) 50 mcg PO DAILY@0630 [facility] Last Admin: 08/02/17 06:15 Dose: 50 mcg Losartan Potassium (Cozaar) 25 mg PO DAILY [facility] Last Admin: 08/02/17 09:32 Dose: Not Given Modafinil (Provigil) 50 mg PO DAILY [facility] Multivitamins/Vitamin C (Multi-Delyn Liquid) 5 ml PO DAILY [facility] Last Admin: 08/02/17 09:33 Dose: 5 ml Nystatin (Mycostatin Cream) 1 ea TOP TID [facility] Last Admin: 08/02/17 17:00 Dose: 1 applic Pantoprazole Sodium (Protonix Inj) 40 mg IVP Q12 [facility] Last Admin: 08/02/17 21:10 Dose: 40 mg Saccharomyces Boulardii (Florastor) 250 mg PO Q12 [facility] Last Admin: 08/02/17 21:31 Dose: 250 mg Thiamine HCl (Vitamin B1 Tab) 100 mg PO DAILY [facility] Last Admin: 08/02/17 09:34 Dose: 100 mg Vitamin A (Vitamin A & D Oint Ud Foilpak) 1 ea TOP BID [facility] Last Admin: 08/02/17 17:00 Dose: 1 ea Zinc Sulfate (Zinc Sulfate 220 Mg Cap) 220 mg PO DAILY [facility] Last Admin: 08/02/17 09:35 Dose: 220 mg - Labs Labs: 08/02/17 10:41 08/02/17 10:41 PT 10.6 SECONDS (9.7-12.2) 07/31/17 06:21 INR 1.0 07/31/17 06:21 APTT 27 SECONDS (21-34) 07/31/17 06:21 Assessment and Plan - Assessment and Plan (Free Text) Assessment: This is a 76 year old male with HTN, DM, Hypercholesterimia, CAD, CABG with 5 vessel disease, ESRD on peritoneal dialysis, with symptomatic bradycardia s/p pacemaker placed [address] Valencia, hypothyroidism, who presented to the ED on 07/28 for dysphagia and slurred speech, was diagnosed with Yu's Palsy. Patient is with persistent AMS 2/2 Metabolic Encephalopathy. Started on HD. S/P left AVF, right permacath 07/31. Plan: Neuro: - Extubated 07/27/17 - NGT in place A: Metabolic Encephalopathy Neurology consulted - Dr. 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 - Started Keppra 250mg PO BID A: Right Yu's Palsy Neurology: Dr. Thompson - on board Imaging: - Head CT: 1. Confluent area of low attenuation within the right frontal subcortical white matter suggestive for chronic ischemic change. 2. Scattered areas of chronic microvascular ischemic change. 3. Prominent ventricles. 4. No evidence of acute intracranial hemorrhage. If there is persistent concern for acute ischemic change, correlation with MRI is recommended. - Head/ Neck CTA: There is nonvisualization origin left vertebral artery. Left vertebral artery reconstitutes at approximately the lower C5 level and is seen on as a patent vessel to the level of the C2 segment where the vertebral artery is no longer visualized and appears to be occluded. Findings could represent sequela of atherosclerotic disease or dissection. Clinical correlation recommended. Right vertebral artery is patent throughout. The common carotid arteries, carotid bifurcations and internal carotid artery is widely patent. There is a calcified atherosclerotic plaque both cavernous carotid segments. The the at anterior middle and posterior cerebral arteries are patent. No evidence of large aneurysm nor vascular malformation. - Not able to have MRI - due to recent PPM placement - 07/[address]: No intracranial mass, hemorrhage or evidence of acute infarct. Right frontal encephalomalacia, possibly old MCA territory infarct. Small nonspecific right mastoid effusion. Chronic white matter ischemic change. A: Hx CVA -ASA 81mg, Plavix 75mg, Crestor 10mg Cardio: A: HTN, CAD, CABG with 5 vessel disease, with symptomatic bradycardia s/p pacemaker placed [address] Valencia - Recent ECHO performed in Dr. Elizabeth's office as outpatient - ASA 81mg, Plavix 75mg, Coreg 6.25mg PO BID, Cozaar 25mg, Crestor 10mg Pulm: A: Acute Respiratory Failure - Extubated 07/27/17 Endo: A: Hypothyroidism - Resumed Synthroid 50 mcg A: DM - Accuchecks - ISS - medium - A1C 8.4 GI: A: Cirrhosis, etiology unclear -Dr. Irvin consulted Renal: A: ESRD on HD with new L AVF, Right Permacath (MWF) --Nephrology consulted - Dr. Benson - Previously on peritoneal dialysis, removed PD catheter 07/31 - Procrit, Phoslo - S/P AVF, Right Permacath 07/31 Heme/Onc A: Anemia of Chronic Disease - Baseline hemoglobin 9s - Continue with Procrit - S/P transfused 1 unit PRBC 07/23 - Ferrlecit daily x 1 week - Stool occult- negative ID: A: Sepsis 2/2 Otitis Media with right mastoid effusion? Mastoiditis? r/o Meningitis ID consulted - Dr. Gabe Villegas - Workup up ordered - negative to date - Vanco 500mg on dialysis (07/19), and Acyclovir 400mg Q12 (07/22) - LAST DOSES Prophylaxis: - Pepcid / to steroids - Heparin during HD - Diet: NGT in place; failed swallow eval x 2 - PT/OT
[2017-08-03] MEDS: (Novolin R) Insulin Human Regular 100 units/ml vial SC SCH ×4 (00:07→18:28)
[2017-08-03] MEDS: Albuterol-Ipratrop 3 mg / 0.5 (3 ml) UD INH SCH ×4 (01:18→19:08)
[2017-08-03] MEDS: Levothyroxine 50 MCG TAB PO SCH (05:56)
[2017-08-03 06:49] LABS: BASO # 0.1 K/uL (0.0-0.2); BASO % 0.8 % (0.0-2.0); EOS # 0.4 K/uL (0.0-0.7); EOS % 4.5 % (0.0-4.0); HEMOGLOBIN 9.3 g/dL (12.0-18.0); LYMPH % 12.4 % (20.0-40.0); MEAN CELL VOLUME 95.9 fL (80.0-94.0); MEAN CORPUSCULAR HEMOGLOBIN 31.8 pg (27.0-31.0); MEAN CORPUSCULAR HGB CONC 33.2 g/dL (33.0-37.0); MEAN PLATELET VOLUME 8.4 fL (7.2-11.7); MONO % 12.1 % (0.0-10.0); NEUT # 5.9 K/uL (1.8-7.0); NEUT % 70.2 % (50.0-75.0); NRBC % 0.1 % (0.0-2.0); RBC 2.91 Mil/uL (4.40-5.90); RED CELL DISTRIBUTION WIDTH 20.5 % (11.5-14.5); WHITE BLOOD COUNT 8.4 K/uL (4.8-10.8)
[2017-08-03 07:04] LABS: ALB/GLOB RATIO 0.8 (1.0-2.1); ALBUMIN 2.9 g/dL (3.5-5.0); CALCIUM 8.3 mg/dl (8.6-10.4)
--- NOTE | 2017-08-03 08:41 | RAD ---
HISTORY: dialysis COMPARISON: 08/02/2017. FINDINGS: The right-sided dialysis catheter terminates at the cavoatrial junction. The nasogastric tube terminates in the stomach. LUNGS: The lungs are well inflated. Again seen is worsening severe pulmonary venous congestion. There is confluent airspace disease in the lower lobes. PLEURA: There are bilateral pleural effusions, no pneumothorax apparent. CARDIOVASCULAR: The heart remains enlarged. There is stable position of left-sided pacemaker. Status post CABG. OSSEOUS STRUCTURES: No significant abnormalities. VISUALIZED UPPER ABDOMEN: Normal. OTHER FINDINGS: None. IMPRESSION: Worsening pulmonary venous congestion and persistent bilateral pleural effusions. Airspace disease in the lower lobes may represent compressive atelectasis however superimposed pneumonia cannot be excluded.
[2017-08-03] MEDS: Ferric Sodium Gluconat Complex 62.5 mg/5 ml Vial IVPB SCH (10:50)
[2017-08-03] MEDS: Saccharomyces Boulardi 250 mg Cap PO SCH ×2 (10:50→22:46)
[2017-08-03] MEDS: Multiple Vitamins Oral Solution PO SCH (10:50)
[2017-08-03] MEDS: Modafinil 50 MG TAB PO SCH (10:51)
[2017-08-03] MEDS: Vitamins A & D Oint UD Foilpak TOP SCH ×2 (10:51→17:11)
[2017-08-03] MEDS: Nystatin 100,000 Units/gm Cream(15 gm) TOP SCH ×3 (11:03→17:10)
--- NOTE | 2017-08-03 19:55 | CP.PCM.PN ---
Subjective - Date & Time of Evaluation Date of Evaluation: 08/03/17 Time of Evaluation: 11:00 - Subjective Subjective: Seen and examined by me.Discussed with patient's daughter and his at beds side. patient was sitting on the chair. Awake and responsive. Not talking .follow command. NG tube feeding on. Tolerating the feeding. D/W daughter about feeding tube/PEG and repeatedly failing the swallow. Objective - Vital Signs/Intake and Output Vital Signs (last 24 hours): Temp Pulse Resp BP Pulse Ox 99.3 F 76 23 131/58 L 98 08/03/17 16:00 08/03/17 19:04 08/03/17 19:04 08/03/17 19:04 08/03/17 19:04 Intake and Output: 08/03/17 08/04/17 18:59 06:59 Intake Total 340 Output Total 0 Balance 340 - Medications Medications: Current Medications Acetaminophen (Tylenol 325mg Tab) 650 mg PO Q6 PRN PRN Reason: Fever >100.4 F Last Admin: 08/02/17 00:25 Dose: 650 mg Albuterol/Ipratropium (Duoneb 3 Mg/0.5 Mg (3 Ml) Ud) 3 ml INH RQ6 [facility] Last Admin: 08/03/17 19:08 Dose: 3 ml Artificial Tears (Artificial Tears) 0 ml OD Q3H PRN PRN Reason: Dry eyes Last Admin: 08/02/17 09:32 Dose: 1 drop Ascorbic Acid (Vitamin C 500 Mg Tab) 500 mg PO DAILY [facility] Last Admin: 08/03/17 10:51 Dose: 500 mg Calcium Acetate (Phoslo) 667 mg PO TIDCC [facility] Last Admin: 08/03/17 17:11 Dose: 667 mg Carvedilol (Coreg) 6.25 mg PO BID [facility] Last Admin: 08/03/17 17:10 Dose: 6.25 mg Clopidogrel Bisulfate (Plavix) 75 mg PO DAILY [facility] Last Admin: 08/02/17 09:34 Dose: 75 mg Epoetin Kumar (Procrit) 10,000 unit SC MWF [facility] Last Admin: 08/01/17 12:30 Dose: 10,000 unit Ferric Sodium Gluconate Complex (Ferrlecit) 125 mg IVPB DAILY [facility] Stop: 08/09/17 13:46 Last Admin: 08/03/17 10:50 Dose: 125 mg Folic Acid (Folic Acid) 1 mg PO DAILY [facility] Last Admin: 08/03/17 10:50 Dose: 1 mg Insulin Human Regular (Novolin R) 0 unit SC Q6 [facility] PRN Reason: Protocol Last Admin: 08/03/17 18:28 Dose: 4 units Levetiracetam (Keppra) 250 mg PO BID [facility] Last Admin: 08/03/17 17:10 Dose: 250 mg Levothyroxine Sodium (Synthroid) 50 mcg PO DAILY@0630 [facility] Last Admin: 08/03/17 05:56 Dose: 50 mcg Losartan Potassium (Cozaar) 25 mg PO DAILY [facility] Last Admin: 08/03/17 10:50 Dose: 25 mg Modafinil (Provigil) 50 mg PO DAILY [facility] Last Admin: 08/03/17 10:51 Dose: 50 mg Multivitamins/Vitamin C (Multi-Delyn Liquid) 5 ml PO DAILY [facility] Last Admin: 08/03/17 10:50 Dose: 5 ml Nystatin (Mycostatin Cream) 1 ea TOP TID [facility] Last Admin: 08/03/17 17:10 Dose: 1 applic Pantoprazole Sodium (Protonix Inj) 40 mg IVP Q12 [facility] Last Admin: 08/03/17 10:51 Dose: 40 mg Saccharomyces Boulardii (Florastor) 250 mg PO Q12 [facility] Last Admin: 08/03/17 10:50 Dose: 250 mg Thiamine HCl (Vitamin B1 Tab) 100 mg PO DAILY [facility] Last Admin: 08/03/17 10:51 Dose: 100 mg Vitamin A (Vitamin A & D Oint Ud Foilpak) 1 ea TOP BID [facility] Last Admin: 08/03/17 17:11 Dose: 1 ea Zinc Sulfate (Zinc Sulfate 220 Mg Cap) 220 mg PO DAILY [facility] Last Admin: 08/03/17 10:51 Dose: 220 mg - Labs Labs: 08/03/17 06:41 08/03/17 06:35 PT 10.6 SECONDS (9.7-12.2) 07/31/17 06:21 INR 1.0 07/31/17 06:21 APTT 27 SECONDS (21-34) 07/31/17 06:21 - Constitutional Appears: Non-toxic, Chronically Ill - Head Exam Head Exam: ATRAUMATIC. absent: NORMAL INSPECTION (facial droop) - Eye Exam Eye Exam: absent: Normal appearance (tosis) - ENT Exam ENT Exam: Mucous Membranes Moist - Neck Exam Neck Exam: Normal Inspection - Respiratory Exam Respiratory Exam: Clear to Ausculation Bilateral, NORMAL BREATHING PATTERN - Cardiovascular Exam Cardiovascular Exam: REGULAR RHYTHM - GI/Abdominal Exam GI & Abdominal Exam: Soft, Normal Bowel Sounds - Extremities Exam Extremities Exam: Full ROM - Back Exam Back Exam: NORMAL INSPECTION - Neurological Exam Neurological Exam: Awake. absent: Oriented x3 - Psychiatric Exam Psychiatric exam: Flat Affect - Skin Skin Exam: Dry Assessment and Plan - Assessment and Plan (Free Text) Assessment: This is a 76 year old male with HTN, DM, Hypercholesterimia, CAD, CABG with 5 vessel disease, ESRD on peritoneal dialysis, with symptomatic bradycardia s/p pacemaker placed [address] Valencia, hypothyroidism, who presented to the ED on 07/28 for dysphagia and slurred speech, was diagnosed with Yu's Palsy. Patient is with persistent AMS 2/2 Metabolic Encephalopathy. Started on HD. S/P left AVF, right permacath 07/31. On NG feeds. Plan: 1. Metabolic Encephalopathy Subacute to chronic infarct on the CT head involving the right frontal lobe, the patient is unlikely to have meningoencephalitis and likely has a combination of toxic-metabolic encephalopathy and cerebral ischemia. Not able to have MRI - due to recent PPM placement Keppra 250mg PO BID 2. Syptomatic bradycardia s/p pace maker by Dr Valencia 3. Right Yu's Palsy Neurology: Dr. Thompson - on board - 07/[address]: No intracranial mass, hemorrhage or evidence of acute infarct. Right frontal encephalomalacia, possibly old MCA territory infarct. Small nonspecific right mastoid effusion. Chronic white matter ischemic change. 4. Hx CVA -Crestor 10mg- ASA 81mg, Plavix 75mg- held due to dropping hemoglobin 5. HTN, CAD, CABG with 5 vessel disease, Coreg 6.25mg PO BID, Cozaar 25mg, Crestor 10mg, ASA 81mg Plavix 75mg- held due to dropping hemoglobin 6. Acute Respiratory Failure - Extubated 07/27/17 7. Hypothyroidism - Resumed Synthroid 50 mcg 8. DM - Accuchecks - ISS - medium - A1C 8.4 9. Cirrhosis etiology unclear -Dr. Irvin consulted 10. ESRD on HD with new L AVF, Right Permacath (MWF) Previously on peritoneal dialysis, removed PD catheter 07/31 S/P AVF, Right Permacath 07/31 continue procrit and phoslo Hemodialysis as per nephrology team 11. Anemia of Chronic Disease Continue with Procrit S/P transfused 1 unit PRBC 07/23, transfused 1 unit 08/02 - during dialysis - Ferrlecit daily x 1 week - Stool occult- negative 12.s/p possible Sepsis ID consulted - Dr. Gabe Villegas work up negative 13.Prophylaxis: Pepcid 2/2 to steroids Heparin during HD 14. Diet NGT in place; failed swallow eval x 2 Speech evaluation for swallowing trial and PEG d/w daughter at bedside about PEG placement and question answered about PEG Follow after repeat speech evaluation 15. PT/OT
[2017-08-04] MEDS: Albuterol-Ipratrop 3 mg / 0.5 (3 ml) UD INH SCH ×4 (01:12→19:53)
[2017-08-04] MEDS: (Novolin R) Insulin Human Regular 100 units/ml vial SC SCH ×4 (01:27→17:57)
[2017-08-04] MEDS: Levothyroxine 50 MCG TAB PO SCH (05:42)
[2017-08-04 06:37] LABS: BASO # 0.1 K/uL (0.0-0.2); BASO % 0.8 % (0.0-2.0); EOS # 0.4 K/uL (0.0-0.7); EOS % 4.5 % (0.0-4.0); HEMOGLOBIN 9.6 g/dL (12.0-18.0); LYMPH # 1.2 K/uL (1.0-4.3); MEAN CELL VOLUME 96.2 fL (80.0-94.0); MEAN CORPUSCULAR HEMOGLOBIN 32.4 pg (27.0-31.0); MEAN CORPUSCULAR HGB CONC 33.7 g/dL (33.0-37.0); MEAN PLATELET VOLUME 8.3 fL (7.2-11.7); MONO % 10.3 % (0.0-10.0); NEUT % 72.4 % (50.0-75.0); NRBC % 0.1 % (0.0-2.0); RBC 2.95 Mil/uL (4.40-5.90); RED CELL DISTRIBUTION WIDTH 20.2 % (11.5-14.5); WHITE BLOOD COUNT 9.7 K/uL (4.8-10.8)
[2017-08-04 06:59] LABS: ALB/GLOB RATIO 0.8 (1.0-2.1); ALBUMIN 2.9 g/dL (3.5-5.0); CALCIUM 8.5 mg/dl (8.6-10.4)
[2017-08-04] MEDS: Ferric Sodium Gluconat Complex 62.5 mg/5 ml Vial IVPB SCH (10:17)
[2017-08-04] MEDS: Saccharomyces Boulardi 250 mg Cap PO SCH ×2 (10:17→21:45)
[2017-08-04] MEDS: Modafinil 50 MG TAB PO SCH (10:18)
[2017-08-04] MEDS: Nystatin 100,000 Units/gm Cream(15 gm) TOP SCH ×3 (10:20→17:57)
[2017-08-04] MEDS: Vitamins A & D Oint UD Foilpak TOP SCH ×2 (10:20→17:58)
[2017-08-04] MEDS: Multiple Vitamins Oral Solution PO SCH (10:20)
--- NOTE | 2017-08-04 10:59 | CP.PCM.PN ---
Subjective - Date & Time of Evaluation Date of Evaluation: 08/04/17 Time of Evaluation: 10:54 - Subjective Subjective: s/p dialysis 08/02- UF 1500ml s/p blood transfusion 08/02 remains with NGT feeds- had failed swallow study remains lethargic- responds when stimulated discussed with family at bedside Objective - Vital Signs/Intake and Output Vital Signs (last 24 hours): Temp Pulse Resp BP Pulse Ox 98.6 F 92 H 28 H 170/72 H 97 08/04/17 08:00 08/04/17 10:00 08/04/17 10:00 08/04/17 08:29 08/04/17 10:00 Intake and Output: 08/04/17 08/04/17 06:59 18:59 Intake Total 120 10 Balance 120 10 - Medications Medications: Current Medications Acetaminophen (Tylenol 325mg Tab) 650 mg PO Q6 PRN PRN Reason: Fever >100.4 F Last Admin: 08/02/17 00:25 Dose: 650 mg Albuterol/Ipratropium (Duoneb 3 Mg/0.5 Mg (3 Ml) Ud) 3 ml INH RQ6 [facility] Last Admin: 08/04/17 07:35 Dose: 3 ml Artificial Tears (Artificial Tears) 0 ml OD Q3H PRN PRN Reason: Dry eyes Last Admin: 08/02/17 09:32 Dose: 1 drop Ascorbic Acid (Vitamin C 500 Mg Tab) 500 mg PO DAILY [facility] Last Admin: 08/04/17 10:18 Dose: 500 mg Calcium Acetate (Phoslo) 667 mg PO TIDCC [facility] Last Admin: 08/04/17 07:40 Dose: 667 mg Carvedilol (Coreg) 6.25 mg PO BID [facility] Last Admin: 08/04/17 10:17 Dose: 6.25 mg Clopidogrel Bisulfate (Plavix) 75 mg PO DAILY [facility] Last Admin: 08/02/17 09:34 Dose: 75 mg Epoetin Kumar (Procrit) 10,000 unit SC MWF [facility] Last Admin: 08/01/17 12:30 Dose: 10,000 unit Ferric Sodium Gluconate Complex (Ferrlecit) 125 mg IVPB DAILY [facility] Stop: 08/09/17 13:46 Last Admin: 08/04/17 10:17 Dose: 125 mg Folic Acid (Folic Acid) 1 mg PO DAILY [facility] Last Admin: 08/04/17 10:18 Dose: 1 mg Insulin Human Regular (Novolin R) 0 unit SC Q6 [facility] PRN Reason: Protocol Last Admin: 08/04/17 06:29 Dose: Not Given Levetiracetam (Keppra) 250 mg PO BID [facility] Last Admin: 08/04/17 10:18 Dose: 250 mg Levothyroxine Sodium (Synthroid) 50 mcg PO DAILY@0630 [facility] Last Admin: 08/04/17 05:42 Dose: 50 mcg Losartan Potassium (Cozaar) 25 mg PO DAILY [facility] Last Admin: 08/04/17 10:18 Dose: 25 mg Modafinil (Provigil) 50 mg PO DAILY [facility] Last Admin: 08/04/17 10:18 Dose: 50 mg Multivitamins/Vitamin C (Multi-Delyn Liquid) 5 ml PO DAILY [facility] Last Admin: 08/04/17 10:20 Dose: 5 ml Nystatin (Mycostatin Cream) 1 ea TOP TID [facility] Last Admin: 08/04/17 10:20 Dose: 1 applic Pantoprazole Sodium (Protonix Inj) 40 mg IVP Q12 [facility] Last Admin: 08/04/17 10:17 Dose: 40 mg Saccharomyces Boulardii (Florastor) 250 mg PO Q12 [facility] Last Admin: 08/04/17 10:17 Dose: 250 mg Thiamine HCl (Vitamin B1 Tab) 100 mg PO DAILY [facility] Last Admin: 08/04/17 10:17 Dose: 100 mg Vitamin A (Vitamin A & D Oint Ud Foilpak) 1 ea TOP BID [facility] Last Admin: 08/04/17 10:20 Dose: 1 ea Zinc Sulfate (Zinc Sulfate 220 Mg Cap) 220 mg PO DAILY [facility] Last Admin: 08/04/17 10:18 Dose: 220 mg - Labs Labs: 08/04/17 06:28 08/04/17 06:23 PT 10.6 SECONDS (9.7-12.2) 07/31/17 06:21 INR 1.0 07/31/17 06:21 APTT 27 SECONDS (21-34) 07/31/17 06:21 - Constitutional Appears: No Acute Distress, Chronically Ill - Head Exam Head Exam: ATRAUMATIC, NORMAL INSPECTION - Eye Exam Eye Exam: EOMI, Normal appearance - Neck Exam Neck Exam: Normal Inspection. absent: Tenderness - Respiratory Exam Respiratory Exam: Rhonchi, NORMAL BREATHING PATTERN - Cardiovascular Exam Cardiovascular Exam: REGULAR RHYTHM, +S1 - GI/Abdominal Exam GI & Abdominal Exam: Soft. absent: Tenderness - Extremities Exam Extremities Exam: Normal Inspection. absent: Tenderness - Neurological Exam Neurological Exam: Altered - Skin Skin Exam: Warm Assessment and Plan (1) TIA (transient ischemic attack) Status: Acute (2) ESRD (end stage renal disease) Status: Acute (3) Heart block AV complete Status: Acute (4) Type 2 diabetes mellitus with diabetic nephropathy Status: Acute - Assessment and Plan (Free Text) Plan: Dialysis MWF; adequate UF goals repeat swallow study IV ABs as per ID stop IV Fe- recheck iron stores
--- NOTE | 2017-08-04 11:25 | RAD ---
HISTORY: dialysis COMPARISON: 08/03/2017 FINDINGS: LUNGS: Patchy opacities in both lower lobes. There has been improvement in the extent of opacity at the right base compared to the prior examination. No new consolidation elsewhere. PLEURA: No significant pleural effusion identified, no pneumothorax apparent. CARDIOVASCULAR: Normal heart size. Permanent pacemaker. Nasogastric tube. Sternotomy wires. Right tunneled central venous dialysis catheter. OSSEOUS STRUCTURES: No significant abnormalities. VISUALIZED UPPER ABDOMEN: Normal. OTHER FINDINGS: None. IMPRESSION: Improving opacity at right base. Persistent patchy opacity at left base. Lines and tubes unchanged.
--- NOTE | 2017-08-04 11:40 | CP.PCM.PN ---
<Marilyn Lyn - Last Filed: 08/04/17 14:34> Subjective - Date & Time of Evaluation Date of Evaluation: 08/04/17 Time of Evaluation: 11:35 - Subjective Subjective: Medicine Progress note for Dr. Gibson (Hospitalist note covering for Dr. Elizabeth ) Patient was seen and examined at bedside in no acute distress. Patient is upset he is still in the hospital and wants to go home. Patient has no other complaints at this time. and daughter are at bedside and believe the patient is improving. Patient denies chest pain, abdominal pain, dyspnea, nausea , vomiting, headaches, fevers. Objective - Vital Signs/Intake and Output Vital Signs (last 24 hours): Temp Pulse Resp BP Pulse Ox 98.6 F 89 19 162/64 H 96 08/04/17 08:00 08/04/17 11:00 08/04/17 11:00 08/04/17 10:13 08/04/17 11:00 Intake and Output: 08/04/17 08/04/17 06:59 18:59 Intake Total 120 330 Balance 120 330 - Medications Medications: Current Medications Acetaminophen (Tylenol 325mg Tab) 650 mg PO Q6 PRN PRN Reason: Fever >100.4 F Last Admin: 08/02/17 00:25 Dose: 650 mg Albuterol/Ipratropium (Duoneb 3 Mg/0.5 Mg (3 Ml) Ud) 3 ml INH RQ6 [facility] Last Admin: 08/04/17 07:35 Dose: 3 ml Artificial Tears (Artificial Tears) 0 ml OD Q3H PRN PRN Reason: Dry eyes Last Admin: 08/02/17 09:32 Dose: 1 drop Ascorbic Acid (Vitamin C 500 Mg Tab) 500 mg PO DAILY [facility] Last Admin: 08/04/17 10:18 Dose: 500 mg Calcium Acetate (Phoslo) 667 mg PO TIDCC [facility] Last Admin: 08/04/17 07:40 Dose: 667 mg Carvedilol (Coreg) 6.25 mg PO BID [facility] Last Admin: 08/04/17 10:17 Dose: 6.25 mg Clopidogrel Bisulfate (Plavix) 75 mg PO DAILY [facility] Last Admin: 08/02/17 09:34 Dose: 75 mg Epoetin Kumar (Procrit) 10,000 unit SC MWF [facility] Last Admin: 08/01/17 12:30 Dose: 10,000 unit Folic Acid (Folic Acid) 1 mg PO DAILY [facility] Last Admin: 08/04/17 10:18 Dose: 1 mg Insulin Human Regular (Novolin R) 0 unit SC Q6 [facility] PRN Reason: Protocol Last Admin: 08/04/17 06:29 Dose: Not Given Levetiracetam (Keppra) 250 mg PO BID [facility] Last Admin: 08/04/17 10:18 Dose: 250 mg Levothyroxine Sodium (Synthroid) 50 mcg PO DAILY@0630 [facility] Last Admin: 08/04/17 05:42 Dose: 50 mcg Losartan Potassium (Cozaar) 25 mg PO DAILY [facility] Last Admin: 08/04/17 10:18 Dose: 25 mg Modafinil (Provigil) 50 mg PO DAILY [facility] Last Admin: 08/04/17 10:18 Dose: 50 mg Multivitamins/Vitamin C (Multi-Delyn Liquid) 5 ml PO DAILY [facility] Last Admin: 08/04/17 10:20 Dose: 5 ml Nystatin (Mycostatin Cream) 1 ea TOP TID [facility] Last Admin: 08/04/17 10:20 Dose: 1 applic Pantoprazole Sodium (Protonix Inj) 40 mg IVP Q12 [facility] Last Admin: 08/04/17 10:17 Dose: 40 mg Saccharomyces Boulardii (Florastor) 250 mg PO Q12 [facility] Last Admin: 08/04/17 10:17 Dose: 250 mg Thiamine HCl (Vitamin B1 Tab) 100 mg PO DAILY [facility] Last Admin: 08/04/17 10:17 Dose: 100 mg Vitamin A (Vitamin A & D Oint Ud Foilpak) 1 ea TOP BID [facility] Last Admin: 08/04/17 10:20 Dose: 1 ea Zinc Sulfate (Zinc Sulfate 220 Mg Cap) 220 mg PO DAILY [facility] Last Admin: 08/04/17 10:18 Dose: 220 mg - Labs Labs: 08/04/17 06:28 08/04/17 06:23 PT 10.6 SECONDS (9.7-12.2) 07/31/17 06:21 INR 1.0 07/31/17 06:21 APTT 27 SECONDS (21-34) 07/31/17 06:21 - Constitutional Appears: No Acute Distress - Head Exam Head Exam: ATRAUMATIC, NORMAL INSPECTION - Eye Exam Eye Exam: EOMI Additional comments: arcus senalis - ENT Exam ENT Exam: Mucous Membranes Dry - Respiratory Exam Respiratory Exam: Rales, NORMAL BREATHING PATTERN. absent: Clear to Ausculation Bilateral, Rhonchi, Wheezes, Respiratory Distress - Cardiovascular Exam Cardiovascular Exam: +S1, +S2 - GI/Abdominal Exam GI & Abdominal Exam: Normal Bowel Sounds. absent: Distended, Firm, Soft, Tenderness - Neurological Exam Neurological Exam: Awake, Oriented x3 - Psychiatric Exam Psychiatric exam: Flat Affect - Skin Skin Exam: Dry, Intact, Normal Color, Warm Assessment and Plan - Assessment and Plan (Free Text) Plan: This is a 76 year old male with HTN, DM, Hypercholesterimia, CAD, CABG with 5 vessel disease, ESRD on peritoneal dialysis, with symptomatic bradycardia s/p pacemaker placed [address] Valencia, hypothyroidism, who presented to the ED on 07/28 for dysphagia and slurred speech, was diagnosed with Yu's Palsy. Patient is with persistent AMS 2/2 Metabolic Encephalopathy. Started on HD. S/P left AVF, right permacath 07/31. On NG feeds. Plan: 1. Right Yu's Palsy - Neurology: Dr. Thompson/Dr. Rivera - on board - Head CT (07/13): Confluent area of low attenuation within the right frontal subcortical white matter suggestive for chronic ischemic change; Scattered areas of chronic microvascular ischemic change; Prominent ventricles; No evidence of acute intracranial hemorrhage. - Head CT (07/18): No acute intracranial hemorrhage; Moderate chronic white matter ischemic changes with chronic right superior frontal lobe infarct; Moderate generalized volume loss. - Head CT (07/21): No intracranial mass, hemorrhage or evidence of acute infarct. Right frontal encephalomalacia, possibly old MCA territory infarct. Small nonspecific right mastoid effusion. Chronic white matter ischemic change. - Head CT (07/30): No acute intracranial hemorrhage; Moderate chronic white matter ischemic changes with chronic right superior frontal lobe infarct; Moderate generalized volume loss. * Per Neurology, patient has subacute cva (prior to admission). Patient's facial palsy due to yu's palsy, not due to acute cva. 2. Syptomatic bradycardia - s/p pace maker by Dr Valencia 3. Metabolic Encephalopathy - Subacute to chronic infarct on the CT head involving the right frontal lobe, the patient is unlikely to have meningoencephalitis and likely has a combination of toxic-metabolic encephalopathy and cerebral ischemia. - Not able to have MRI - due to recent PPM placement - Keppra 250mg PO BID 4. Hx CVA - Crestor 10mg- ASA 81mg, Plavix 75mg- held due to dropping hemoglobin 5. HTN, CAD, CABG with 5 vessel disease, - Coreg 6.25mg PO BID, Cozaar 25mg, Crestor 10mg, ASA 81mg - Plavix 75mg- held due to dropping hemoglobin 6. Acute Respiratory Failure - Extubated 07/27/17 7. Hypothyroidism - Resumed Synthroid 50mcg 8. DM - Accuchecks - ISS - medium - A1C 8.4 9. Cirrhosis - Etiology unclear - Dr. Irvin consulted 10. ESRD on HD with new L AVF, Right Permacath (MWF) - Previously on peritoneal dialysis, removed PD catheter 07/31 - S/P AVF, Right Permacath 07/31 - Continue procrit and phoslo - Hemodialysis as per nephrology team 11. Anemia of Chronic Disease - Continue with Procrit S/P transfused 1 unit PRBC 07/23, transfused 1 unit - during dialysis - Ferrlecit daily x 1 week - Stool occult- negative 12.s/p possible Sepsis - ID consulted - Dr. Gabe Villegas - Work up negative - Per ID, disconitnued vanco (08/01) and acyclovir (08/02) 13. Prophylaxis: - Pepcid 2/ to steroids - Heparin during HD 14. Diet - NGT in place; failed swallow eval x 2 - Speech evaluation for swallowing trial and PEG - d/w daughter at bedside about PEG placement and question answered about PEG - Follow after repeat speech evaluation 15. PT/OT Disposition: Swallow eval. If patient fails again, need to reconsider PEG. Continue PT/OT <Glen Gibson - Last Filed: 08/04/17 17:52> Objective - Vital Signs/Intake and Output Vital Signs (last 24 hours): Temp Pulse Resp BP Pulse Ox 98.5 F 80 19 137/50 L 97 08/04/17 17:30 08/04/17 17:30 08/04/17 17:30 08/04/17 17:30 08/04/17 17:30 Intake and Output: 08/04/17 08/04/17 06:59 18:59 Intake Total 120 440 Balance 120 440 - Medications Medications: Current Medications Acetaminophen (Tylenol 325mg Tab) 650 mg PO Q6 PRN PRN Reason: Fever >100.4 F Last Admin: 08/02/17 00:25 Dose: 650 mg Albuterol/Ipratropium (Duoneb 3 Mg/0.5 Mg (3 Ml) Ud) 3 ml INH RQ6 [facility] Last Admin: 08/04/17 14:03 Dose: 3 ml Artificial Tears (Artificial Tears) 0 ml OD Q3H PRN PRN Reason: Dry eyes Last Admin: 08/02/17 09:32 Dose: 1 drop Ascorbic Acid (Vitamin C 500 Mg Tab) 500 mg PO DAILY [facility] Last Admin: 08/04/17 10:18 Dose: 500 mg Calcium Acetate (Phoslo) 667 mg PO TIDCC [facility] Last Admin: 08/04/17 12:48 Dose: 667 mg Carvedilol (Coreg) 6.25 mg PO BID [facility] Last Admin: 08/04/17 10:17 Dose: 6.25 mg Clopidogrel Bisulfate (Plavix) 75 mg PO DAILY [facility] Last Admin: 08/02/17 09:34 Dose: 75 mg Epoetin Kumar (Procrit) 10,000 unit SC MWF [facility] Last Admin: 08/04/17 14:58 Dose: 10,000 unit Folic Acid (Folic Acid) 1 mg PO DAILY [facility] Last Admin: 08/04/17 10:18 Dose: 1 mg Insulin Human Regular (Novolin R) 0 unit SC Q6 [facility] PRN Reason: Protocol Last Admin: 08/04/17 12:48 Dose: 4 units Levetiracetam (Keppra) 250 mg PO BID [facility] Last Admin: 08/04/17 10:18 Dose: 250 mg Levothyroxine Sodium (Synthroid) 50 mcg PO DAILY@0630 [facility] Last Admin: 08/04/17 05:42 Dose: 50 mcg Losartan Potassium (Cozaar) 25 mg PO DAILY [facility] Last Admin: 08/04/17 10:18 Dose: 25 mg Modafinil (Provigil) 50 mg PO DAILY [facility] Last Admin: 08/04/17 10:18 Dose: 50 mg Multivitamins (Hexavitamin) 1 tab PO DAILY [facility] Nystatin (Mycostatin Cream) 1 ea TOP TID [facility] Last Admin: 08/04/17 14:23 Dose: 1 applic Pantoprazole Sodium (Protonix Inj) 40 mg IVP Q12 [facility] Last Admin: 08/04/17 10:17 Dose: 40 mg Saccharomyces Boulardii (Florastor) 250 mg PO Q12 [facility] Last Admin: 08/04/17 10:17 Dose: 250 mg Thiamine HCl (Vitamin B1 Tab) 100 mg PO DAILY [facility] Last Admin: 08/04/17 10:17 Dose: 100 mg Vitamin A (Vitamin A & D Oint Ud Foilpak) 1 ea TOP BID [facility] Last Admin: 08/04/17 10:20 Dose: 1 ea Zinc Sulfate (Zinc Sulfate 220 Mg Cap) 220 mg PO DAILY [facility] Last Admin: 08/04/17 10:18 Dose: 220 mg - Labs Labs: 08/04/17 06:28 08/04/17 06:23 PT 10.6 SECONDS (9.7-12.2) 07/31/17 06:21 INR 1.0 07/31/17 06:21 APTT 27 SECONDS (21-34) 07/31/17 06:21 Attending/Attestation - Attestation I have personally seen and examined this patient.: Yes I have fully participated in the care of the patient.: Yes I have reviewed all pertinent clinical information, including history, physical exam and plan: Yes Notes (Text): 08/04/17 17:45 Medical Hospitalist: Patient was seen and examined by me and with the clinical medical assistant. Reviewed the above note by the resident and agree with the above note by the resident The patient's family members were at bedside and we had an extended discussion. They were hesitant about the idea of a PEG tube and wanted to see how he did with the speech and swallow evaluation - later I spoke with the speech and swallow and they explained the patient was so agitated that they will have to try again tommorow. The patient continues to have the facial drooping as well. Review of previous notes report that this maybe Yu's Palsy, they did try the patient on IV solumedrol briefly but then stopped. My concern is that this maybe infact a stroke. He does have quite a bit of cardiac history and recently required a PPM device. There has not been an MRI, only CT imaging thus far. Glen Gibson
[2017-08-04] MEDS: EPOETIN ALFA 10,000 UNIT/ML ML SC SCH (14:58)
--- NOTE | 2017-08-04 17:58 | CP.PCM.PN ---
Subjective - Date & Time of Evaluation Date of Evaluation: 08/04/17 Time of Evaluation: 17:58 - Subjective Subjective: Patient seen and examined at bedside. AFEBRILE ON HD -2.5 LITRES REMOVED. AWAKE AND RESPONSIVE S/P AVF with Dr. Davis ON 07/31/17 . Objective - Vital Signs/Intake and Output Vital Signs (last 24 hours): Temp Pulse Resp BP Pulse Ox 98.5 F 80 19 137/50 L 97 08/04/17 17:30 08/04/17 17:30 08/04/17 17:30 08/04/17 17:30 08/04/17 17:30 Intake and Output: 08/04/17 08/04/17 06:59 18:59 Intake Total 120 440 Balance 120 440 - Medications Medications: Current Medications Acetaminophen (Tylenol 325mg Tab) 650 mg PO Q6 PRN PRN Reason: Fever >100.4 F Last Admin: 08/02/17 00:25 Dose: 650 mg Albuterol/Ipratropium (Duoneb 3 Mg/0.5 Mg (3 Ml) Ud) 3 ml INH RQ6 [facility] Last Admin: 08/04/17 14:03 Dose: 3 ml Artificial Tears (Artificial Tears) 0 ml OD Q3H PRN PRN Reason: Dry eyes Last Admin: 08/02/17 09:32 Dose: 1 drop Ascorbic Acid (Vitamin C 500 Mg Tab) 500 mg PO DAILY [facility] Last Admin: 08/04/17 10:18 Dose: 500 mg Calcium Acetate (Phoslo) 667 mg PO TIDCC [facility] Last Admin: 08/04/17 17:56 Dose: 667 mg Carvedilol (Coreg) 6.25 mg PO BID [facility] Last Admin: 08/04/17 17:56 Dose: 6.25 mg Clopidogrel Bisulfate (Plavix) 75 mg PO DAILY [facility] Last Admin: 08/02/17 09:34 Dose: 75 mg Epoetin Kumar (Procrit) 10,000 unit SC MWF [facility] Last Admin: 08/04/17 14:58 Dose: 10,000 unit Folic Acid (Folic Acid) 1 mg PO DAILY [facility] Last Admin: 08/04/17 10:18 Dose: 1 mg Insulin Human Regular (Novolin R) 0 unit SC Q6 JAYLA PRN Reason: Protocol Last Admin: 06/25/18 17:57 Dose: Not Given Levetiracetam (Keppra) 250 mg PO BID [facility] Last Admin: 08/04/17 17:56 Dose: 250 mg Levothyroxine Sodium (Synthroid) 50 mcg PO DAILY@0630 [facility] Last Admin: 08/04/17 05:42 Dose: 50 mcg Losartan Potassium (Cozaar) 25 mg PO DAILY [facility] Last Admin: 08/04/17 10:18 Dose: 25 mg Modafinil (Provigil) 50 mg PO DAILY [facility] Last Admin: 08/04/17 10:18 Dose: 50 mg Multivitamins (Hexavitamin) 1 tab PO DAILY [facility] Nystatin (Mycostatin Cream) 1 ea TOP TID [facility] Last Admin: 08/04/17 17:57 Dose: 1 applic Pantoprazole Sodium (Protonix Inj) 40 mg IVP Q12 [facility] Last Admin: 08/04/17 10:17 Dose: 40 mg Saccharomyces Boulardii (Florastor) 250 mg PO Q12 [facility] Last Admin: 08/04/17 10:17 Dose: 250 mg Thiamine HCl (Vitamin B1 Tab) 100 mg PO DAILY [facility] Last Admin: 08/04/17 10:17 Dose: 100 mg Vitamin A (Vitamin A & D Oint Ud Foilpak) 1 ea TOP BID [facility] Last Admin: 08/04/17 10:20 Dose: 1 ea Zinc Sulfate (Zinc Sulfate 220 Mg Cap) 220 mg PO DAILY [facility] Last Admin: 08/04/17 10:18 Dose: 220 mg - Labs Labs: 08/04/17 06:28 08/04/17 06:23 PT 10.6 SECONDS (9.7-12.2) 07/31/17 06:21 INR 1.0 07/31/17 06:21 APTT 27 SECONDS (21-34) 07/31/17 06:21 - Constitutional Appears: No Acute Distress, Chronically Ill - Head Exam Head Exam: NORMAL INSPECTION - Eye Exam Eye Exam: EOMI, PERRL - ENT Exam ENT Exam: Normal Oropharynx - Neck Exam Neck Exam: Normal Inspection - Respiratory Exam Respiratory Exam: Rales, NORMAL BREATHING PATTERN - Cardiovascular Exam Cardiovascular Exam: REGULAR RHYTHM, +S1, +S2 - GI/Abdominal Exam GI & Abdominal Exam: Soft, Normal Bowel Sounds - Extremities Exam Extremities Exam: Normal Capillary Refill, Pedal Edema (1+). absent: Calf Tenderness - Neurological Exam Neurological Exam: Awake, CN II-XII Intact - Psychiatric Exam Psychiatric exam: Normal Mood - Skin Skin Exam: Warm Assessment and Plan (1) Toxic metabolic encephalopathy Assessment & Plan: MUCH IMPROVED . OFF ANTIBIOTICS /AND ANTIVIRALS. OSERV FEVER CURVE. Status: Acute (2) Yu palsy Assessment & Plan: FAILED SWALLOW EVAL X2. AWAITING PEG. NGT IN PLACE. -SPEECH EVAL IN PROGRESS. Status: Acute (3) Type 2 diabetes mellitus with diabetic nephropathy Status: Acute (4) ESRD (end stage renal disease) Assessment & Plan: RT PERMACATHETER 07/31/17 ON HD MWF. Status: Acute (5) Heart block AV complete Status: Acute
[2017-08-05] MEDS: (Novolin R) Insulin Human Regular 100 units/ml vial SC SCH ×5 (01:00→23:59)
[2017-08-05] MEDS: Albuterol-Ipratrop 3 mg / 0.5 (3 ml) UD INH SCH ×3 (02:17→22:35)
[2017-08-05] MEDS: Levothyroxine 50 MCG TAB PO SCH (05:30)
[2017-08-05 06:50] LABS: BASO # 0.1 K/uL (0.0-0.2); EOS # 0.4 K/uL (0.0-0.7); EOS % 4.7 % (0.0-4.0); HEMOGLOBIN 10.3 g/dL (12.0-18.0); LYMPH # 1.2 K/uL (1.0-4.3); LYMPH % 13.4 % (20.0-40.0); MEAN CELL VOLUME 96.8 fL (80.0-94.0); MEAN CORPUSCULAR HEMOGLOBIN 33.4 pg (27.0-31.0); MEAN CORPUSCULAR HGB CONC 34.4 g/dL (33.0-37.0); MEAN PLATELET VOLUME 8.5 fL (7.2-11.7); MONO % 10.7 % (0.0-10.0); NEUT # 6.3 K/uL (1.8-7.0); NEUT % 70.2 % (50.0-75.0); NRBC % 0.3 % (0.0-2.0); RBC 3.08 Mil/uL (4.40-5.90); RED CELL DISTRIBUTION WIDTH 20.9 % (11.5-14.5)
--- NOTE | 2017-08-05 07:16 | CP.PCM.PN ---
<Marilyn Lyn - Last Filed: 08/05/17 11:19> Subjective - Date & Time of Evaluation Date of Evaluation: 08/05/17 Time of Evaluation: 07:13 - Subjective Subjective: Medicine progress note for Dr. Gibson (Hospitalist covering for Dr. Elizabeth) Patient was seen and examined at bedside in no acute distress. Patient's family is at bedside. Patient was too lethargic to complete swallow eval yesterday, will reevlaute today. He reports feeling better today and denies having any complaints. Patient denies chest pain, abdominal pain, dyspnea, nausea, vomiting , fevers, headaches, dysuria, constipation, and diarrhea. Objective - Vital Signs/Intake and Output Vital Signs (last 24 hours): Temp Pulse Resp BP Pulse Ox 98.4 F 80 23 143/58 L 100 08/05/17 04:00 08/05/17 04:02 08/05/17 04:02 08/05/17 04:02 08/05/17 04:02 Intake and Output: 08/05/17 08/05/17 06:59 18:59 Intake Total 720 Balance 720 - Medications Medications: Current Medications Acetaminophen (Tylenol 325mg Tab) 650 mg PO Q6 PRN PRN Reason: Fever >100.4 F Last Admin: 08/02/17 00:25 Dose: 650 mg Albuterol/Ipratropium (Duoneb 3 Mg/0.5 Mg (3 Ml) Ud) 3 ml INH RQ6 [facility] Last Admin: 08/05/17 02:17 Dose: 3 ml Artificial Tears (Artificial Tears) 0 ml OD Q3H PRN PRN Reason: Dry eyes Last Admin: 08/02/17 09:32 Dose: 1 drop Ascorbic Acid (Vitamin C 500 Mg Tab) 500 mg PO DAILY [facility] Last Admin: 08/04/17 10:18 Dose: 500 mg Calcium Acetate (Phoslo) 667 mg PO TIDCC [facility] Last Admin: 08/04/17 17:56 Dose: 667 mg Carvedilol (Coreg) 6.25 mg PO BID [facility] Last Admin: 08/04/17 17:56 Dose: 6.25 mg Clopidogrel Bisulfate (Plavix) 75 mg PO DAILY [facility] Last Admin: 08/02/17 09:34 Dose: 75 mg Epoetin Kumar (Procrit) 10,000 unit SC [facility] Last Admin: 08/04/17 14:58 Dose: 10,000 unit Folic Acid (Folic Acid) 1 mg PO DAILY [facility] Last Admin: 08/04/17 10:18 Dose: 1 mg Insulin Human Regular (Novolin R) 0 unit SC Q6 [facility] PRN Reason: Protocol Last Admin: 08/05/17 06:30 Dose: 4 units Levetiracetam (Keppra) 250 mg PO BID [facility] Last Admin: 08/04/17 17:56 Dose: 250 mg Levothyroxine Sodium (Synthroid) 50 mcg PO DAILY@0630 [facility] Last Admin: 08/05/17 05:30 Dose: 50 mcg Losartan Potassium (Cozaar) 25 mg PO DAILY [facility] Last Admin: 08/04/17 10:18 Dose: 25 mg Modafinil (Provigil) 50 mg PO DAILY [facility] Last Admin: 08/04/17 10:18 Dose: 50 mg Multivitamins (Hexavitamin) 1 tab PO DAILY [facility] Nystatin (Mycostatin Cream) 1 ea TOP TID [facility] Last Admin: 08/04/17 17:57 Dose: 1 applic Pantoprazole Sodium (Protonix Inj) 40 mg IVP Q12 [facility] Last Admin: 08/04/17 21:45 Dose: 40 mg Saccharomyces Boulardii (Florastor) 250 mg PO Q12 [facility] Last Admin: 08/04/17 21:45 Dose: 250 mg Thiamine HCl (Vitamin B1 Tab) 100 mg PO DAILY [facility] Last Admin: 08/04/17 10:17 Dose: 100 mg Vitamin A (Vitamin A & D Oint Ud Foilpak) 1 ea TOP BID [facility] Last Admin: 08/04/17 17:58 Dose: 1 ea Zinc Sulfate (Zinc Sulfate 220 Mg Cap) 220 mg PO DAILY [facility] Last Admin: 08/04/17 10:18 Dose: 220 mg - Labs Labs: 08/05/17 06:32 08/04/17 06:23 PT 10.6 SECONDS (9.7-12.2) 07/31/17 06:21 INR 1.0 07/31/17 06:21 APTT 27 SECONDS (21-34) 07/31/17 06:21 - Additional Findings Additional findings: - Constitutional Appears: No Acute Distress - Head Exam Head Exam: ATRAUMATIC, NORMAL INSPECTION - Eye Exam Eye Exam: EOMI Additional comments: arcus senalis - ENT Exam ENT Exam: Mucous Membranes Dry; NGT in place - Respiratory Exam Respiratory Exam: Rales, NORMAL BREATHING PATTERN. absent: Clear to Ausculation Bilateral, Rhonchi, Wheezes, Respiratory Distress - Cardiovascular Exam Cardiovascular Exam: +S1, +S2 - GI/Abdominal Exam GI & Abdominal Exam: Normal Bowel Sounds. absent: Distended, Firm, Soft, Tenderness - Neurological Exam Neurological Exam: Awake, Oriented x3 - Psychiatric Exam Psychiatric exam: Flat Affect - Skin Skin Exam: Dry, Intact, Normal Color, Warm Assessment and Plan - Assessment and Plan (Free Text) Plan: This is a 76 year old male with HTN, DM, Hypercholesterimia, CAD, CABG with 5 vessel disease, ESRD on peritoneal dialysis, with symptomatic bradycardia s/p pacemaker placed [address] Valencia, hypothyroidism, who presented to the ED on 07/28 for dysphagia and slurred speech, was diagnosed with Yu's Palsy. Patient is with persistent AMS 2/2 Metabolic Encephalopathy. Started on HD. S/P left AVF, right permacath 07/31. On NG feeds. Plan: 1. Right Yu's Palsy - Neurology: Dr. Thompson/Dr. Rivera - on board - Head CT (07/13): Confluent area of low attenuation within the right frontal subcortical white matter suggestive for chronic ischemic change; Scattered areas of chronic microvascular ischemic change; Prominent ventricles; No evidence of acute intracranial hemorrhage. - Head CT (07/18): No acute intracranial hemorrhage; Moderate chronic white matter ischemic changes with chronic right superior frontal lobe infarct; Moderate generalized volume loss. - Head CT (07/21): No intracranial mass, hemorrhage or evidence of acute infarct. Right frontal encephalomalacia, possibly old MCA territory infarct. Small nonspecific right mastoid effusion. Chronic white matter ischemic change. - Head CT (07/30): No acute intracranial hemorrhage; Moderate chronic white matter ischemic changes with chronic right superior frontal lobe infarct; Moderate generalized volume loss. * Per Neurology, patient has subacute cva (prior to admission). Patient's facial palsy due to yu's palsy, not due to acute cva. 2. Syptomatic bradycardia - s/p pace maker by Dr Valencia 3. Metabolic Encephalopathy - Subacute to chronic infarct on the CT head involving the right frontal lobe, the patient is unlikely to have meningoencephalitis and likely has a combination of toxic-metabolic encephalopathy and cerebral ischemia. - Not able to have MRI - due to recent PPM placement - Keppra 250mg PO BID 4. Hx CVA - Crestor 10mg - Restarted ASA 81mg, Plavix 75mg- hemoglobin improved 5. HTN, CAD, CABG with 5 vessel disease, - Coreg 6.25mg PO BID, Cozaar 25mg, Crestor 10mg, ASA 81mg, Plavix 75mg 6. Acute Respiratory Failure - Extubated 07/27/17 7. Hypothyroidism - Resumed Synthroid 50mcg 8. DM - Accuchecks - ISS - medium - A1C 8.4 9. Cirrhosis - Etiology unclear - Dr. Irvin consulted 10. ESRD on HD with new L AVF, Right Permacath (MWF) - Previously on peritoneal dialysis, removed PD catheter 07/31 - S/P AVF, Right Permacath 07/31 - Continue procrit and phoslo - Hemodialysis as per nephrology team 11. Anemia of Chronic Disease - Continue with Procrit S/P transfused 1 unit PRBC 07/23, transfused 1 unit - during dialysis - Ferrlecit daily x 1 week - Stool occult- negative 12.s/p possible Sepsis - ID consulted - Dr. Gabe Villegas - Work up negative - Per ID, disconitnued vanco (08/01) and acyclovir (08/02) 13. Prophylaxis: - Pepcid 2/ to steroids - Heparin during HD 14. Diet - NGT in place; failed swallow eval x 2 - Speech evaluation for swallowing trial and PEG - d/w daughter at bedside about PEG placement and question answered about PEG - Follow after repeat speech evaluation - GI consulted, Dr. Irvin, for possible PEG tube placement. Help appreciated. 15. PT/OT Disposition: Pending swallow eval. If patient fails again, need to reconsider PEG. GI, Dr. Irvin, consulted for possible PEG tube placement. Continue PT/OT <Glen Gibson - Last Filed: 08/05/17 13:20> Objective - Vital Signs/Intake and Output Vital Signs (last 24 hours): Temp Pulse Resp BP Pulse Ox 98.4 F 78 21 146/59 L 98 08/05/17 12:00 08/05/17 10:00 08/05/17 10:00 08/05/17 08:02 08/05/17 12:00 Intake and Output: 08/05/17 08/05/17 06:59 18:59 Intake Total 720 10 Balance 720 10 - Medications Medications: Current Medications Acetaminophen (Tylenol 325mg Tab) 650 mg PO Q6 PRN PRN Reason: Fever >100.4 F Last Admin: 08/02/17 00:25 Dose: 650 mg Albuterol/Ipratropium (Duoneb 3 Mg/0.5 Mg (3 Ml) Ud) 3 ml INH RQ6 [facility] Last Admin: 08/05/17 07:25 Dose: 3 ml Artificial Tears (Artificial Tears) 0 ml OD Q3H PRN PRN Reason: Dry eyes Last Admin: 08/02/17 09:32 Dose: 1 drop Ascorbic Acid (Vitamin C 500 Mg Tab) 500 mg PO DAILY [facility] Last Admin: 08/05/17 09:50 Dose: 500 mg Calcium Acetate (Phoslo) 667 mg PO TIDCC [facility] Last Admin: 08/05/17 11:45 Dose: 667 mg Carvedilol (Coreg) 6.25 mg PO BID [facility] Last Admin: 08/05/17 09:50 Dose: 6.25 mg Clopidogrel Bisulfate (Plavix) 75 mg PO DAILY [facility] Last Admin: 08/02/17 09:34 Dose: 75 mg Epoetin Kumar (Procrit) 10,000 unit SC MWF [facility] Last Admin: 08/04/17 14:58 Dose: 10,000 unit Folic Acid (Folic Acid) 1 mg PO DAILY [facility] Last Admin: 08/05/17 09:50 Dose: 1 mg Insulin Human Regular (Novolin R) 0 unit SC Q6 JAYLA PRN Reason: Protocol Last Admin: 08/05/17 11:45 Dose: 4 units Levetiracetam (Keppra) 250 mg PO BID [facility] Last Admin: 08/05/17 09:50 Dose: 250 mg Levothyroxine Sodium (Synthroid) 50 mcg PO DAILY@0630 [facility] Last Admin: 08/05/17 05:30 Dose: 50 mcg Losartan Potassium (Cozaar) 25 mg PO DAILY [facility] Last Admin: 08/05/17 09:50 Dose: 25 mg Modafinil (Provigil) 50 mg PO DAILY [facility] Last Admin: 08/05/17 09:50 Dose: 50 mg Multivitamins (Hexavitamin) 1 tab PO DAILY [facility] Last Admin: 08/05/17 09:50 Dose: 1 tab Pantoprazole Sodium (Protonix Susp) 40 mg GT 0600,1600 [facility] Saccharomyces Boulardii (Florastor) 250 mg PO Q12 [facility] Last Admin: 08/05/17 09:50 Dose: 250 mg Thiamine HCl (Vitamin B1 Tab) 100 mg PO DAILY [facility] Last Admin: 08/05/17 09:50 Dose: 100 mg Zinc Sulfate (Zinc Sulfate 220 Mg Cap) 220 mg PO DAILY [facility] Last Admin: 08/05/17 09:50 Dose: 220 mg - Labs Labs: 08/05/17 06:32 08/05/17 06:20 PT 10.6 SECONDS (9.7-12.2) 07/31/17 06:21 INR 1.0 07/31/17 06:21 APTT 27 SECONDS (21-34) 07/31/17 06:21 Attending/Attestation - Attestation I have personally seen and examined this patient.: Yes I have fully participated in the care of the patient.: Yes I have reviewed all pertinent clinical information, including history, physical exam and plan: Yes Notes (Text): 08/05/17 13:20 Medical attending: Patient was seen and examined by me, agrees the above note by the medical support specialist. Reviewed the above note by the resident and agree with the above. Today we saw him additional family member, he identified himself as his son. We also spoke with the patient's daughter as well the patient's has been faithfully at bedside as well. Today as he saw him he was more awake and alert than the previous time he is able to follow very simple commands, including sticking out his tongue. He still has the very noticeable right facial drooping that was present before. Later on today the speech and swallow therapist was able to come and evaluate the patient again. He was able to do fairly decent when she came and examined because of the previous couple days of the patient being very lethargic she's can come back and do this again to see how he does during dialysis. After this she requested that we put in for a barium swallow study this coming so we've are arrange for that. As documented before we've been talking to the family's about the possibility for PEG tube. We also explained to him that even if the patient passes the swallows test that he still has the facial drooping and slurred speech is still at risk for aspiration so we'll consult GI for potential PEG tube. We explained to them that even with the PEG tube he still be able to take sips of water and by mouth. They said that they're willing to see GI even thhough they were still undecided with regards to PEG tube thank you Glen Gibson
[2017-08-05 07:23] LABS: ALB/GLOB RATIO 0.8 (1.0-2.1); ALBUMIN 3.1 g/dL (3.5-5.0); CALCIUM 8.6 mg/dl (8.6-10.4)
[2017-08-05] MEDS ORDERED: Acetylcysteine 20% Inhal Soln (4ml) INH STA ×2 (08:58→10:51)
[2017-08-05] MEDS: Modafinil 50 MG TAB PO SCH (09:50)
[2017-08-05] MEDS: Multiple Vitamins Tab PO SCH (09:50)
[2017-08-05] MEDS: Saccharomyces Boulardi 250 mg Cap PO SCH ×2 (09:50→22:45)
[2017-08-05] MEDS ORDERED: Albuterol-Ipratrop 3 mg / 0.5 (3 ml) UD INH STA (10:53)
--- NOTE | 2017-08-05 11:57 | CP.PCM.PN ---
Subjective - Date & Time of Evaluation Date of Evaluation: 08/05/17 Time of Evaluation: 11:56 - Subjective Subjective: seen and examined swallow study pending son and at bedside pt up in chair but non verbal no events overnight Objective - Vital Signs/Intake and Output Vital Signs (last 24 hours): Temp Pulse Resp BP Pulse Ox 97.6 F 78 21 146/59 L 100 08/05/17 07:59 08/05/17 10:00 08/05/17 10:00 08/05/17 08:02 08/05/17 10:00 Intake and Output: 08/05/17 08/05/17 06:59 18:59 Intake Total 720 10 Balance 720 10 - Medications Medications: Current Medications Acetaminophen (Tylenol 325mg Tab) 650 mg PO Q6 PRN PRN Reason: Fever >100.4 F Last Admin: 08/02/17 00:25 Dose: 650 mg Albuterol/Ipratropium (Duoneb 3 Mg/0.5 Mg (3 Ml) Ud) 3 ml INH RQ6 [facility] Last Admin: 08/05/17 07:25 Dose: 3 ml Artificial Tears (Artificial Tears) 0 ml OD Q3H PRN PRN Reason: Dry eyes Last Admin: 08/02/17 09:32 Dose: 1 drop Ascorbic Acid (Vitamin C 500 Mg Tab) 500 mg PO DAILY [facility] Last Admin: 08/05/17 09:50 Dose: 500 mg Calcium Acetate (Phoslo) 667 mg PO TIDCC [facility] Last Admin: 08/05/17 11:45 Dose: 667 mg Carvedilol (Coreg) 6.25 mg PO BID [facility] Last Admin: 08/05/17 09:50 Dose: 6.25 mg Clopidogrel Bisulfate (Plavix) 75 mg PO DAILY [facility] Last Admin: 08/02/17 09:34 Dose: 75 mg Epoetin Kumar (Procrit) 10,000 unit SC MWF [facility] Last Admin: 08/04/17 14:58 Dose: 10,000 unit Folic Acid (Folic Acid) 1 mg PO DAILY [facility] Last Admin: 08/05/17 09:50 Dose: 1 mg Insulin Human Regular (Novolin R) 0 unit SC Q6 JAYLA PRN Reason: Protocol Last Admin: 08/05/17 11:45 Dose: 4 units Levetiracetam (Keppra) 250 mg PO BID [facility] Last Admin: 08/05/17 09:50 Dose: 250 mg Levothyroxine Sodium (Synthroid) 50 mcg PO DAILY@0630 [facility] Last Admin: 08/05/17 05:30 Dose: 50 mcg Losartan Potassium (Cozaar) 25 mg PO DAILY [facility] Last Admin: 08/05/17 09:50 Dose: 25 mg Modafinil (Provigil) 50 mg PO DAILY [facility] Last Admin: 08/05/17 09:50 Dose: 50 mg Multivitamins (Hexavitamin) 1 tab PO DAILY [facility] Last Admin: 08/05/17 09:50 Dose: 1 tab Pantoprazole Sodium (Protonix Susp) 40 mg GT 0600,1600 [facility] Saccharomyces Boulardii (Florastor) 250 mg PO Q12 [facility] Last Admin: 08/05/17 09:50 Dose: 250 mg Thiamine HCl (Vitamin B1 Tab) 100 mg PO DAILY [facility] Last Admin: 08/05/17 09:50 Dose: 100 mg Zinc Sulfate (Zinc Sulfate 220 Mg Cap) 220 mg PO DAILY [facility] Last Admin: 08/05/17 09:50 Dose: 220 mg - Labs Labs: 08/05/17 06:32 08/05/17 06:20 PT 10.6 SECONDS (9.7-12.2) 07/31/17 06:21 INR 1.0 07/31/17 06:21 APTT 27 SECONDS (21-34) 07/31/17 06:21 - Constitutional Appears: No Acute Distress, Chronically Ill - Head Exam Head Exam: NORMAL INSPECTION, NORMOCEPHALIC - Eye Exam Eye Exam: Normal appearance Pupil Exam: NORMAL ACCOMODATION - ENT Exam ENT Exam: Mucous Membranes Moist, Normal Exam - Neck Exam Neck Exam: Normal Inspection - Respiratory Exam Respiratory Exam: Clear to Ausculation Bilateral, NORMAL BREATHING PATTERN - Cardiovascular Exam Cardiovascular Exam: REGULAR RHYTHM, RRR - GI/Abdominal Exam GI & Abdominal Exam: Distended, Soft - Extremities Exam Extremities Exam: Normal Inspection Additional comments: lue avf - Neurological Exam Neurological Exam: Alert, Awake. absent: Oriented x3 - Skin Skin Exam: Dry, Intact Assessment and Plan (1) TIA (transient ischemic attack) Status: Acute (2) ESRD (end stage renal disease) Status: Acute (3) Heart block Status: Acute (4) Syncope Status: Acute - Assessment and Plan (Free Text) Assessment: maintain hd mwf perri w/ hd bp acceptable ?peg tube
[2017-08-05] MEDS: Pantoprazole 40 mg Susp UD GT SCH (17:04)
--- NOTE | 2017-08-05 23:26 | CP.PCM.PN ---
Subjective - Date & Time of Evaluation Date of Evaluation: 08/05/17 Time of Evaluation: 23:26 - Subjective Subjective: Patient seen and examined at bedside. AFEBRILE AWAKE BUT LETHARGIC AWAITING PEG LABS REVIEWED Objective - Vital Signs/Intake and Output Vital Signs (last 24 hours): Temp Pulse Resp BP Pulse Ox 98.6 F 69 20 155/65 H 99 08/05/17 15:12 08/05/17 20:39 08/05/17 15:12 08/05/17 15:12 08/05/17 15:12 Intake and Output: 08/05/17 08/06/17 18:59 06:59 Intake Total 10 Balance 10 - Medications Medications: Current Medications Acetaminophen (Tylenol 325mg Tab) 650 mg PO Q6 PRN PRN Reason: Fever >100.4 F Last Admin: 08/02/17 00:25 Dose: 650 mg Albuterol/Ipratropium (Duoneb 3 Mg/0.5 Mg (3 Ml) Ud) 3 ml INH RQ6 [facility] Last Admin: 08/05/17 22:35 Dose: 3 ml Artificial Tears (Artificial Tears) 0 ml OD Q3H PRN PRN Reason: Dry eyes Last Admin: 08/02/17 09:32 Dose: 1 drop Ascorbic Acid (Vitamin C 500 Mg Tab) 500 mg PO DAILY [facility] Last Admin: 08/05/17 09:50 Dose: 500 mg Calcium Acetate (Phoslo) 667 mg PO TIDCC [facility] Last Admin: 08/05/17 17:04 Dose: Not Given Carvedilol (Coreg) 6.25 mg PO BID [facility] Last Admin: 08/05/17 18:52 Dose: 6.25 mg Clopidogrel Bisulfate (Plavix) 75 mg PO DAILY [facility] Last Admin: 08/02/17 09:34 Dose: 75 mg Epoetin Kumar (Procrit) 10,000 unit SC MWF [facility] Last Admin: 08/04/17 14:58 Dose: 10,000 unit Folic Acid (Folic Acid) 1 mg PO DAILY [facility] Last Admin: 08/05/17 09:50 Dose: 1 mg Insulin Human Regular (Novolin R) 0 unit SC Q6 [facility] PRN Reason: Protocol Last Admin: 08/05/17 20:23 Dose: Not Given Levetiracetam (Keppra) 250 mg PO BID [facility] Last Admin: 08/05/17 18:52 Dose: 250 mg Levothyroxine Sodium (Synthroid) 50 mcg PO DAILY@0630 [facility] Last Admin: 08/05/17 05:30 Dose: 50 mcg Losartan Potassium (Cozaar) 25 mg PO DAILY [facility] Last Admin: 08/05/17 09:50 Dose: 25 mg Modafinil (Provigil) 50 mg PO DAILY [facility] Last Admin: 08/05/17 09:50 Dose: 50 mg Multivitamins (Hexavitamin) 1 tab PO DAILY [facility] Last Admin: 08/05/17 09:50 Dose: 1 tab Pantoprazole Sodium (Protonix Susp) 40 mg GT 0600,1600 [facility] Last Admin: 08/05/17 17:04 Dose: 40 mg Saccharomyces Boulardii (Florastor) 250 mg PO Q12 [facility] Last Admin: 08/05/17 22:45 Dose: 250 mg Thiamine HCl (Vitamin B1 Tab) 100 mg PO DAILY [facility] Last Admin: 08/05/17 09:50 Dose: 100 mg Zinc Sulfate (Zinc Sulfate 220 Mg Cap) 220 mg PO DAILY [facility] Last Admin: 08/05/17 09:50 Dose: 220 mg - Labs Labs: 08/05/17 06:32 08/05/17 06:20 PT 10.6 SECONDS (9.7-12.2) 07/31/17 06:21 INR 1.0 07/31/17 06:21 APTT 27 SECONDS (21-34) 07/31/17 06:21 - Constitutional Appears: No Acute Distress, Chronically Ill - Head Exam Head Exam: NORMAL INSPECTION - Eye Exam Eye Exam: EOMI, PERRL - ENT Exam ENT Exam: Normal Oropharynx - Neck Exam Neck Exam: Normal Inspection - Respiratory Exam Respiratory Exam: Clear to Ausculation Bilateral - Cardiovascular Exam Cardiovascular Exam: REGULAR RHYTHM, +S1, +S2 - GI/Abdominal Exam GI & Abdominal Exam: Soft - Extremities Exam Extremities Exam: absent: Calf Tenderness, Pedal Edema - Neurological Exam Neurological Exam: Altered, Awake, CN II-XII Intact - Psychiatric Exam Psychiatric exam: Flat Affect - Skin Skin Exam: Normal Color, Warm Assessment and Plan (1) Toxic metabolic encephalopathy Assessment & Plan: IMPROVING . OFF ABX/ANTI VIRALS OBSERVE FEVER CURVE/ NEURO STATUS WILL SEE PRN NEEDED. Status: Acute (2) Yu palsy Assessment & Plan: FAILED SWALLOW EVAL X2 AWITING PEG. PER FAMILY Status: Acute (3) Type 2 diabetes mellitus with diabetic nephropathy Status: Acute (4) ESRD (end stage renal disease) Assessment & Plan: ON HD MWF. Status: Acute (5) Heart block AV complete Status: Acute
[2017-08-06] MEDS: Albuterol-Ipratrop 3 mg / 0.5 (3 ml) UD INH SCH ×4 (01:09→20:10)
[2017-08-06] MEDS: Pantoprazole 40 mg Susp UD GT SCH ×2 (05:22→18:21)
[2017-08-06] MEDS: Aritificial Tears (15ml) OD PRN (05:26)
[2017-08-06] MEDS: Levothyroxine 50 MCG TAB PO SCH (05:30)
[2017-08-06] MEDS: (Novolin R) Insulin Human Regular 100 units/ml vial SC SCH ×3 (06:45→19:57)
--- NOTE | 2017-08-06 06:55 | CP.PCM.PN ---
<Marilyn Lyn - Last Filed: 08/06/17 09:45> Subjective - Date & Time of Evaluation Date of Evaluation: 08/06/17 Time of Evaluation: 06:55 - Subjective Subjective: Medicine progress note for Dr. Gibson Patient was seen and examined at bedside in no acute distress. Patient appears lethargic. Review of systems limited due to patient's lethargy; patient denies chest pain, abdominal pain, headaches, leg pain. Objective - Vital Signs/Intake and Output Vital Signs (last 24 hours): Temp Pulse Resp BP Pulse Ox 98.9 F 75 20 165/71 H 100 08/06/17 04:45 08/06/17 04:45 08/06/17 04:45 08/06/17 04:45 08/06/17 04:45 Intake and Output: 08/05/17 08/06/17 18:59 06:59 Intake Total 10 800 Balance 10 800 - Medications Medications: Current Medications Acetaminophen (Tylenol 325mg Tab) 650 mg PO Q6 PRN PRN Reason: Fever >100.4 F Last Admin: 08/02/17 00:25 Dose: 650 mg Albuterol/Ipratropium (Duoneb 3 Mg/0.5 Mg (3 Ml) Ud) 3 ml INH RQ6 [facility] Last Admin: 08/06/17 01:09 Dose: 3 ml Artificial Tears (Artificial Tears) 0 ml OD Q3H PRN PRN Reason: Dry eyes Last Admin: 08/06/17 05:26 Dose: 1 drop Ascorbic Acid (Vitamin C 500 Mg Tab) 500 mg PO DAILY [facility] Last Admin: 08/05/17 09:50 Dose: 500 mg Calcium Acetate (Phoslo) 667 mg PO TIDCC [facility] Last Admin: 08/05/17 17:04 Dose: Not Given Carvedilol (Coreg) 6.25 mg PO BID [facility] Last Admin: 08/05/17 18:52 Dose: 6.25 mg Clopidogrel Bisulfate (Plavix) 75 mg PO DAILY [facility] Last Admin: 08/02/17 09:34 Dose: 75 mg Epoetin Kumar (Procrit) 10,000 unit SC MWF [facility] Last Admin: 08/04/17 14:58 Dose: 10,000 unit Folic Acid (Folic Acid) 1 mg PO DAILY [facility] Last Admin: 08/05/17 09:50 Dose: 1 mg Insulin Human Regular (Novolin R) 0 unit SC Q6 [facility] PRN Reason: Protocol Last Admin: 08/06/17 06:45 Dose: 4 units Levetiracetam (Keppra) 250 mg PO BID [facility] Last Admin: 08/05/17 18:52 Dose: 250 mg Levothyroxine Sodium (Synthroid) 50 mcg PO DAILY@0630 [facility] Last Admin: 08/06/17 05:30 Dose: 50 mcg Losartan Potassium (Cozaar) 25 mg PO DAILY [facility] Last Admin: 08/05/17 09:50 Dose: 25 mg Modafinil (Provigil) 50 mg PO DAILY [facility] Last Admin: 08/05/17 09:50 Dose: 50 mg Multivitamins (Hexavitamin) 1 tab PO DAILY [facility] Last Admin: 08/05/17 09:50 Dose: 1 tab Pantoprazole Sodium (Protonix Susp) 40 mg GT 0600,1600 [facility] Last Admin: 08/06/17 05:22 Dose: 40 mg Saccharomyces Boulardii (Florastor) 250 mg PO Q12 [facility] Last Admin: 08/05/17 22:45 Dose: 250 mg Thiamine HCl (Vitamin B1 Tab) 100 mg PO DAILY [facility] Last Admin: 08/05/17 09:50 Dose: 100 mg Zinc Sulfate (Zinc Sulfate 220 Mg Cap) 220 mg PO DAILY [facility] Last Admin: 08/05/17 09:50 Dose: 220 mg - Labs Labs: 08/05/17 06:32 08/05/17 06:20 PT 10.6 SECONDS (9.7-12.2) 07/31/17 06:21 INR 1.0 07/31/17 06:21 APTT 27 SECONDS (21-34) 07/31/17 06:21 - Additional Findings Additional findings: - Constitutional Appears: No Acute Distress - Head Exam Head Exam: ATRAUMATIC, NORMAL INSPECTION - Eye Exam Eye Exam: EOMI Additional comments: arcus senalis - ENT Exam ENT Exam: Mucous Membranes Dry; NGT in place - Respiratory Exam Respiratory Exam: Rales, NORMAL BREATHING PATTERN. absent: Clear to Ausculation Bilateral, Rhonchi, Wheezes, Respiratory Distress - Cardiovascular Exam Cardiovascular Exam: +S1, +S2 - GI/Abdominal Exam GI & Abdominal Exam: Normal Bowel Sounds. absent: Distended, Firm, Soft, Tenderness - Neurological Exam Neurological Exam: Awake, Oriented x3 - Psychiatric Exam Psychiatric exam: Flat Affect - Skin Skin Exam: Dry, Intact, Normal Color, Warm Assessment and Plan - Assessment and Plan (Free Text) Plan: This is a 76 year old male with HTN, DM, Hypercholesterimia, CAD, CABG with 5 vessel disease, ESRD on peritoneal dialysis, with symptomatic bradycardia s/p pacemaker placed [address] Valencia, hypothyroidism, who presented to the ED on 07/28 for dysphagia and slurred speech, was diagnosed with Yu's Palsy. Patient is with persistent AMS 2/2 Metabolic Encephalopathy. Started on HD. S/P left AVF, right permacath 07/31. On NG feeds. Plan: 1. Right Yu's Palsy - Neurology: Dr. Thompson/Dr. Rivera - on board - Head CT (07/13): Confluent area of low attenuation within the right frontal subcortical white matter suggestive for chronic ischemic change; Scattered areas of chronic microvascular ischemic change; Prominent ventricles; No evidence of acute intracranial hemorrhage. - Head CT (07/18): No acute intracranial hemorrhage; Moderate chronic white matter ischemic changes with chronic right superior frontal lobe infarct; Moderate generalized volume loss. - Head CT (07/21): No intracranial mass, hemorrhage or evidence of acute infarct. Right frontal encephalomalacia, possibly old MCA territory infarct. Small nonspecific right mastoid effusion. Chronic white matter ischemic change. - Head CT (07/30): No acute intracranial hemorrhage; Moderate chronic white matter ischemic changes with chronic right superior frontal lobe infarct; Moderate generalized volume loss. * Per Neurology, patient has subacute cva (prior to admission). Patient's facial palsy due to yu's palsy, not due to acute cva. 2. Syptomatic bradycardia - s/p pace maker by Dr Valencia 3. Metabolic Encephalopathy - Subacute to chronic infarct on the CT head involving the right frontal lobe, the patient is unlikely to have meningoencephalitis and likely has a combination of toxic-metabolic encephalopathy and cerebral ischemia. - Not able to have MRI - due to recent PPM placement - Keppra 250mg PO BID 4. Hx CVA - Crestor 10mg - Restarted ASA 81mg, Plavix 75mg- hemoglobin improved 5. HTN, CAD, CABG with 5 vessel disease, - Coreg 6.25mg PO BID, Cozaar 25mg, Crestor 10mg, ASA 81mg, Plavix 75mg 6. Acute Respiratory Failure - Extubated 07/27/17 7. Hypothyroidism - Resumed Synthroid 50mcg 8. DM - Accuchecks - ISS - medium - A1C 8.4 9. Cirrhosis - Etiology unclear - Dr. Irvin consulted 10. ESRD on HD with new L AVF, Right Permacath (MWF) - Previously on peritoneal dialysis, removed PD catheter 07/31 - S/P AVF, Right Permacath 07/31 - Continue procrit and phoslo - Hemodialysis as per nephrology team 11. Anemia of Chronic Disease - Continue with Procrit S/P transfused 1 unit PRBC 07/23, transfused 1 unit - during dialysis - Ferrlecit daily x 1 week - Stool occult- negative 12.s/p possible Sepsis - ID consulted - Dr. Gabe Villegas - Work up negative - Per ID, discontinued vanco (08/01) and acyclovir (08/02) 13. Prophylaxis: - Pepcid 03/14 to steroids - Heparin during HD 14. Diet - NGT in place; failed swallow eval x 2 - Speech evaluation for swallowing trial and PEG - d/w daughter at bedside about PEG placement and question answered about PEG - Follow after repeat speech evaluation - GI consulted, Dr. Irvin, for possible PEG tube placement. Help appreciated. * Ordered abdominal US to determine if patient has ascities. If patient has ascites, GI will not be able to place PEG tube, will have to consult IR. 15. PT/OT Disposition: Patient's family still disscussing PEG tube- unsure at this time. GI, Dr. Irvin, consulted for possible PEG tube placement. Continue PT/OT <Glen Gibson - Last Filed: 08/06/17 12:39> Objective - Vital Signs/Intake and Output Vital Signs (last 24 hours): Temp Pulse Resp BP Pulse Ox 97.3 F L 75 18 147/65 98 08/06/17 10:28 08/06/17 10:28 08/06/17 10:28 08/06/17 10:28 08/06/17 09:10 Intake and Output: 08/06/17 08/06/17 06:59 18:59 Intake Total 800 Balance 800 - Medications Medications: Current Medications Acetaminophen (Tylenol 325mg Tab) 650 mg PO Q6 PRN PRN Reason: Fever >100.4 F Last Admin: 08/02/17 00:25 Dose: 650 mg Albuterol/Ipratropium (Duoneb 3 Mg/0.5 Mg (3 Ml) Ud) 3 ml INH RQ6 [facility] Last Admin: 08/06/17 07:28 Dose: 3 ml Artificial Tears (Artificial Tears) 0 ml OD Q3H PRN PRN Reason: Dry eyes Last Admin: 08/06/17 05:26 Dose: 1 drop Ascorbic Acid (Vitamin C 500 Mg Tab) 500 mg PO DAILY [facility] Last Admin: 08/06/17 09:36 Dose: Not Given Calcium Acetate (Phoslo) 667 mg PO TIDCC [facility] Last Admin: 08/06/17 11:33 Dose: Not Given Carvedilol (Coreg) 6.25 mg PO BID [facility] Last Admin: 08/06/17 09:07 Dose: Not Given Clopidogrel Bisulfate (Plavix) 75 mg PO DAILY [facility] Last Admin: 08/06/17 09:36 Dose: Not Given Epoetin Kumar (Procrit) 10,000 unit SC MWF [facility] Last Admin: 08/06/17 09:09 Dose: Not Given Folic Acid (Folic Acid) 1 mg PO DAILY [facility] Last Admin: 08/06/17 09:36 Dose: Not Given Insulin Human Regular (Novolin R) 0 unit SC Q6 [facility] PRN Reason: Protocol Last Admin: 08/06/17 11:33 Dose: Not Given Levetiracetam (Keppra) 250 mg PO BID [facility] Last Admin: 08/06/17 09:07 Dose: Not Given Levothyroxine Sodium (Synthroid) 50 mcg PO DAILY@0630 [facility] Last Admin: 08/06/17 05:30 Dose: 50 mcg Losartan Potassium (Cozaar) 25 mg PO DAILY [facility] Last Admin: 08/06/17 09:36 Dose: Not Given Modafinil (Provigil) 50 mg PO DAILY [facility] Last Admin: 08/06/17 09:36 Dose: Not Given Multivitamins (Hexavitamin) 1 tab PO DAILY [facility] Last Admin: 08/06/17 09:36 Dose: Not Given Pantoprazole Sodium (Protonix Susp) 40 mg GT 0600,1600 [facility] Last Admin: 08/06/17 05:22 Dose: 40 mg Saccharomyces Boulardii (Florastor) 250 mg PO Q12 [facility] Last Admin: 08/06/17 09:07 Dose: Not Given Thiamine HCl (Vitamin B1 Tab) 100 mg PO DAILY [facility] Last Admin: 08/06/17 09:36 Dose: Not Given Zinc Sulfate (Zinc Sulfate 220 Mg Cap) 220 mg PO DAILY [facility] Last Admin: 08/06/17 09:36 Dose: Not Given - Labs Labs: 08/06/17 08:25 08/06/17 08:25 PT 10.6 SECONDS (9.7-12.2) 07/31/17 06:21 INR 1.0 07/31/17 06:21 APTT 27 SECONDS (21-34) 07/31/17 06:21 Attending/Attestation - Attestation I have personally seen and examined this patient.: Yes I have fully participated in the care of the patient.: Yes I have reviewed all pertinent clinical information, including history, physical exam and plan: Yes Notes (Text): 08/06/17 12:36 Medical attending: Patient was seen and examined by me. Agree with the above note by the resident The patient is getting HD today. [place] in the day they said he did well when the speech therapy came and evaluated him. Tommorow will check barium swallow study to see how he does. I emphasized with all three family members at bedside that even if he does pass all these swallow studies - there is still a risk of aspiration considering how he does on physical exam. thank you Glen Gibson
[2017-08-06 08:38] LABS: BASO # 0.1 K/uL (0.0-0.2); BASO % 0.7 % (0.0-2.0); EOS # 0.5 K/uL (0.0-0.7); EOS % 5.5 % (0.0-4.0); HEMOGLOBIN 9.8 g/dL (12.0-18.0); LYMPH # 1.3 K/uL (1.0-4.3); LYMPH % 14.6 % (20.0-40.0); MEAN CELL VOLUME 97.3 fL (80.0-94.0); MEAN CORPUSCULAR HEMOGLOBIN 32.6 pg (27.0-31.0); MEAN CORPUSCULAR HGB CONC 33.5 g/dL (33.0-37.0); MEAN PLATELET VOLUME 8.1 fL (7.2-11.7); MONO % 11.4 % (0.0-10.0); NEUT % 67.8 % (50.0-75.0); NRBC % 0.2 % (0.0-2.0); RBC 3.01 Mil/uL (4.40-5.90); RED CELL DISTRIBUTION WIDTH 20.6 % (11.5-14.5); WHITE BLOOD COUNT 8.8 K/uL (4.8-10.8)
[2017-08-06] MEDS: Saccharomyces Boulardi 250 mg Cap PO SCH ×2 (09:07→21:42)
[2017-08-06] MEDS: EPOETIN ALFA 10,000 UNIT/ML ML SC SCH (09:09)
[2017-08-06 09:10] LABS: ALB/GLOB RATIO 0.9 (1.0-2.1); ALBUMIN 2.9 g/dL (3.5-5.0); CALCIUM 8.6 mg/dl (8.6-10.4)
--- NOTE | 2017-08-06 09:18 | CP.PCM.PN ---
<Lucho,Hilda - Last Filed: 08/06/17 09:24> Subjective - Date & Time of Evaluation Date of Evaluation: 08/06/17 Time of Evaluation: 06:30 - Subjective Subjective: GI Fellow PGY4 Progress Note Pt seen and evaluated at bedside and during HD session, pt more alert and awake this am, responds to name. Pt with NGT and tolerating tube feeds. GI reconsulted for possible PEG. ROS: A 12pt ROS was negative except as above Objective - Vital Signs/Intake and Output Vital Signs (last 24 hours): Temp Pulse Resp BP Pulse Ox 98.5 F 74 18 175/76 H 100 08/06/17 07:00 08/06/17 07:00 08/06/17 07:00 08/06/17 07:00 08/06/17 07:00 Intake and Output: 08/06/17 08/06/17 06:59 18:59 Intake Total 800 Balance 800 - Medications Medications: Current Medications Acetaminophen (Tylenol 325mg Tab) 650 mg PO Q6 PRN PRN Reason: Fever >100.4 F Last Admin: 08/02/17 00:25 Dose: 650 mg Albuterol/Ipratropium (Duoneb 3 Mg/0.5 Mg (3 Ml) Ud) 3 ml INH RQ6 [facility] Last Admin: 08/06/17 07:28 Dose: 3 ml Artificial Tears (Artificial Tears) 0 ml OD Q3H PRN PRN Reason: Dry eyes Last Admin: 08/06/17 05:26 Dose: 1 drop Ascorbic Acid (Vitamin C 500 Mg Tab) 500 mg PO DAILY [facility] Last Admin: 08/05/17 09:50 Dose: 500 mg Calcium Acetate (Phoslo) 667 mg PO TIDCC [facility] Last Admin: 08/06/17 08:26 Dose: 667 mg Carvedilol (Coreg) 6.25 mg PO BID [facility] Last Admin: 08/06/17 09:07 Dose: Not Given Clopidogrel Bisulfate (Plavix) 75 mg PO DAILY [facility] Last Admin: 08/02/17 09:34 Dose: 75 mg Epoetin Kumar (Procrit) 10,000 unit SC MWF [facility] Last Admin: 08/06/17 09:09 Dose: Not Given Folic Acid (Folic Acid) 1 mg PO DAILY [facility] Last Admin: 08/05/17 09:50 Dose: 1 mg Insulin Human Regular (Novolin R) 0 unit SC Q6 [facility] PRN Reason: Protocol Last Admin: 08/06/17 06:45 Dose: 4 units Levetiracetam (Keppra) 250 mg PO BID [facility] Last Admin: 08/06/17 09:07 Dose: Not Given Levothyroxine Sodium (Synthroid) 50 mcg PO DAILY@0630 [facility] Last Admin: 08/06/17 05:30 Dose: 50 mcg Losartan Potassium (Cozaar) 25 mg PO DAILY [facility] Last Admin: 08/05/17 09:50 Dose: 25 mg Modafinil (Provigil) 50 mg PO DAILY [facility] Last Admin: 08/05/17 09:50 Dose: 50 mg Multivitamins (Hexavitamin) 1 tab PO DAILY [facility] Last Admin: 08/05/17 09:50 Dose: 1 tab Pantoprazole Sodium (Protonix Susp) 40 mg GT 0600,1600 [facility] Last Admin: 08/06/17 05:22 Dose: 40 mg Saccharomyces Boulardii (Florastor) 250 mg PO Q12 [facility] Last Admin: 08/06/17 09:07 Dose: Not Given Thiamine HCl (Vitamin B1 Tab) 100 mg PO DAILY [facility] Last Admin: 08/05/17 09:50 Dose: 100 mg Zinc Sulfate (Zinc Sulfate 220 Mg Cap) 220 mg PO DAILY [facility] Last Admin: 08/05/17 09:50 Dose: 220 mg - Labs Labs: 08/06/17 08:25 08/06/17 08:25 PT 10.6 SECONDS (9.7-12.2) 07/31/17 06:21 INR 1.0 07/31/17 06:21 APTT 27 SECONDS (21-34) 07/31/17 06:21 - Constitutional Appears: Non-toxic, No Acute Distress - Head Exam Head Exam: ATRAUMATIC, NORMAL INSPECTION, NORMOCEPHALIC - Eye Exam Eye Exam: EOMI, Normal appearance, PERRL Pupil Exam: Fixed - ENT Exam ENT Exam: Mucous Membranes Dry Additional comments: NGT - Respiratory Exam Respiratory Exam: Clear to Ausculation Bilateral, NORMAL BREATHING PATTERN - Cardiovascular Exam Cardiovascular Exam: RRR, +S1, +S2 - GI/Abdominal Exam GI & Abdominal Exam: Soft, Normal Bowel Sounds. absent: Distended, Firm, Tenderness, Organomegaly Additional comments: +ascites small/moderate - Rectal Exam Rectal Exam: Deferred - Extremities Exam Extremities Exam: Full ROM. absent: Pedal Edema - Neurological Exam Neurological Exam: Alert, Awake - Skin Skin Exam: Dry, Intact, Normal Color, Warm Assessment and Plan - Assessment and Plan (Free Text) Assessment: This is a 77yM with pmhx of ESRD on peritoneal dialysis, HTN / DM, CAD s/p CABG , complete HB s/p PPM presenting with lethargy and confusion. 1. Metabolic encephalopathy 2. CVA 3. Yu's palsy 4. Cirrhosis-unclear etilogy 5. Dysphagia 6. ESRD 7. Hx CABG Plan: -Continue supportive care -Continue TF with NGT -Pt with ascites on prior Abd US, repeat US ordered, pending read -If pt with abdominal ascites on imaging, this is a contradiction for a PEG by GI guidelines, pt may be able to get PEG by IR -Also, pt is on Plavix therapy, will need cardiac/neuro clearance to stop mediation prior to any plans for procedure -Discussed with primary team and pt's family still uncertain about PEG, will need to have further discussion with family prior to any feeding tube -Speech and swallow evaluation reviewed -Will continue to follow and make further recommendations <Chu Shaw - Last Filed: 08/06/17 10:25> Objective - Vital Signs/Intake and Output Vital Signs (last 24 hours): Temp Pulse Resp BP Pulse Ox 98.5 F 74 18 175/76 H 100 08/06/17 07:00 08/06/17 07:00 08/06/17 07:00 08/06/17 07:00 08/06/17 07:00 Intake and Output: 08/06/17 08/06/17 06:59 18:59 Intake Total 800 Balance 800 - Medications Medications: Current Medications Acetaminophen (Tylenol 325mg Tab) 650 mg PO Q6 PRN PRN Reason: Fever >100.4 F Last Admin: 08/02/17 00:25 Dose: 650 mg Albuterol/Ipratropium (Duoneb 3 Mg/0.5 Mg (3 Ml) Ud) 3 ml INH RQ6 [facility] Last Admin: 08/06/17 07:28 Dose: 3 ml Artificial Tears (Artificial Tears) 0 ml OD Q3H PRN PRN Reason: Dry eyes Last Admin: 08/06/17 05:26 Dose: 1 drop Ascorbic Acid (Vitamin C 500 Mg Tab) 500 mg PO DAILY [facility] Last Admin: 08/06/17 09:36 Dose: Not Given Calcium Acetate (Phoslo) 667 mg PO TIDCC [facility] Last Admin: 08/06/17 08:26 Dose: 667 mg Carvedilol (Coreg) 6.25 mg PO BID [facility] Last Admin: 08/06/17 09:07 Dose: Not Given Clopidogrel Bisulfate (Plavix) 75 mg PO DAILY [facility] Last Admin: 08/06/17 09:36 Dose: Not Given Epoetin Kumar (Procrit) 10,000 unit SC MWF [facility] Last Admin: 08/06/17 09:09 Dose: Not Given Folic Acid (Folic Acid) 1 mg PO DAILY [facility] Last Admin: 08/06/17 09:36 Dose: Not Given Insulin Human Regular (Novolin R) 0 unit SC Q6 [facility] PRN Reason: Protocol Last Admin: 08/06/17 06:45 Dose: 4 units Levetiracetam (Keppra) 250 mg PO BID [facility] Last Admin: 08/06/17 09:07 Dose: Not Given Levothyroxine Sodium (Synthroid) 50 mcg PO DAILY@0630 [facility] Last Admin: 08/06/17 05:30 Dose: 50 mcg Losartan Potassium (Cozaar) 25 mg PO DAILY [facility] Last Admin: 08/06/17 09:36 Dose: Not Given Modafinil (Provigil) 50 mg PO DAILY [facility] Last Admin: 08/06/17 09:36 Dose: Not Given Multivitamins (Hexavitamin) 1 tab PO DAILY [facility] Last Admin: 08/06/17 09:36 Dose: Not Given Pantoprazole Sodium (Protonix Susp) 40 mg GT 0600,1600 [facility] Last Admin: 08/06/17 05:22 Dose: 40 mg Saccharomyces Boulardii (Florastor) 250 mg PO Q12 [facility] Last Admin: 08/06/17 09:07 Dose: Not Given Thiamine HCl (Vitamin B1 Tab) 100 mg PO DAILY [facility] Last Admin: 08/06/17 09:36 Dose: Not Given Zinc Sulfate (Zinc Sulfate 220 Mg Cap) 220 mg PO DAILY [facility] Last Admin: 08/06/17 09:36 Dose: Not Given - Labs Labs: 08/06/17 08:25 08/06/17 08:25 PT 10.6 SECONDS (9.7-12.2) 07/31/17 06:21 INR 1.0 07/31/17 06:21 APTT 27 SECONDS (21-34) 07/31/17 06:21 Attending/Attestation - Attestation I have personally seen and examined this patient.: Yes I have fully participated in the care of the patient.: Yes I have reviewed all pertinent clinical information, including history, physical exam and plan: Yes Notes (Text): 08/06/17 10:23 77 year old male with h/o ESRD on HD, HTN, DM, CAD s/p CABG, PPM with metabolic encephalopathy, cirrhosis a/w confusion/lethargy. Continue supportive measures. Enteral nutrition through tube feeds. Eval for ascites with US. PEG may be complicated if ascites present and also due to plavix use. Family undecided about peg. Will follow. Recommend paracentesis if significant ascites is present.
[2017-08-06] MEDS: Multiple Vitamins Tab PO SCH ×2 (09:36→13:55)
[2017-08-06] MEDS: Modafinil 50 MG TAB PO SCH ×2 (09:36→13:55)
--- NOTE | 2017-08-06 11:04 | US ---
HISTORY: cirrhosis, rule out ascites (seen on prior sono) COMPARISON: 07/18/2017. TECHNIQUE: Grayscale imaging was performed. FINDINGS: LIVER: Measures 14.2 cm. Normal echogenicity of the liver parenchyma. No mass. No intrahepatic bile duct dilatation. GALLBLADDER: There are no gallstones, wall thickening or pericholecystic fluid. The sonographic Hare's sign is negative. COMMON BILE DUCT: Measures 3.9 mm. No stones. No dilatation. PANCREAS: Obscured by bowel gas. RIGHT KIDNEY: Measures 7.5cm. There is diffuse increased echogenicity. No calculus, mass, or hydronephrosis. LEFT KIDNEY: Measures 7.9cm. There is diffuse increased echogenicity. No calculus, mass, or hydronephrosis. SPLEEN: Normal in size and contour. No mass. AORTA: No aneurysmal dilatation. IVC: Unremarkable. OTHER FINDINGS: There are bilateral pleural effusions. No sonographic evidence for abdominal ascites. IMPRESSION: 1. Chronic renal parenchymal disease with atrophic kidneys. 2. Small bilateral pleural effusions. No evidence of abdominal ascites.
[2017-08-06] MEDS: Epoetin Alfa 10,000 unit/ml Dialysis IV SCH (13:09)
--- NOTE | 2017-08-06 13:17 | CP.PCM.PN ---
Subjective - Date & Time of Evaluation Date of Evaluation: 08/06/17 Time of Evaluation: 13:14 - Subjective Subjective: seen at dialysis- to UF 3100ml rx with alteplase for catheter patency still lethargic PEG being considered labs reviewed Objective - Vital Signs/Intake and Output Vital Signs (last 24 hours): Temp Pulse Resp BP Pulse Ox 97.3 F L 75 18 147/65 98 08/06/17 10:28 08/06/17 10:28 08/06/17 10:28 08/06/17 10:28 08/06/17 09:10 Intake and Output: 08/06/17 08/06/17 06:59 18:59 Intake Total 800 Balance 800 - Medications Medications: Current Medications Acetaminophen (Tylenol 325mg Tab) 650 mg PO Q6 PRN PRN Reason: Fever >100.4 F Last Admin: 08/02/17 00:25 Dose: 650 mg Albuterol/Ipratropium (Duoneb 3 Mg/0.5 Mg (3 Ml) Ud) 3 ml INH RQ6 [facility] Last Admin: 08/06/17 07:28 Dose: 3 ml Artificial Tears (Artificial Tears) 0 ml OD Q3H PRN PRN Reason: Dry eyes Last Admin: 08/06/17 05:26 Dose: 1 drop Ascorbic Acid (Vitamin C 500 Mg Tab) 500 mg PO DAILY [facility] Last Admin: 08/06/17 09:36 Dose: Not Given Calcium Acetate (Phoslo) 667 mg PO TIDCC [facility] Last Admin: 08/06/17 11:33 Dose: Not Given Carvedilol (Coreg) 6.25 mg PO BID [facility] Last Admin: 08/06/17 09:07 Dose: Not Given Clopidogrel Bisulfate (Plavix) 75 mg PO DAILY [facility] Last Admin: 08/06/17 09:36 Dose: Not Given Epoetin Kumar (Procrit) 10,000 unit IV MWF [facility] Last Admin: 08/06/17 13:09 Dose: 10,000 unit Folic Acid (Folic Acid) 1 mg PO DAILY [facility] Last Admin: 08/06/17 09:36 Dose: Not Given Insulin Human Regular (Novolin R) 0 unit SC Q6 [facility] PRN Reason: Protocol Last Admin: 08/06/17 11:33 Dose: Not Given Levetiracetam (Keppra) 250 mg PO BID [facility] Last Admin: 08/06/17 09:07 Dose: Not Given Levothyroxine Sodium (Synthroid) 50 mcg PO DAILY@0630 [facility] Last Admin: 08/06/17 05:30 Dose: 50 mcg Losartan Potassium (Cozaar) 25 mg PO DAILY [facility] Last Admin: 08/06/17 09:36 Dose: Not Given Modafinil (Provigil) 50 mg PO DAILY [facility] Last Admin: 08/06/17 09:36 Dose: Not Given Multivitamins (Hexavitamin) 1 tab PO DAILY [facility] Last Admin: 08/06/17 09:36 Dose: Not Given Pantoprazole Sodium (Protonix Susp) 40 mg GT 0600,1600 [facility] Last Admin: 08/06/17 05:22 Dose: 40 mg Saccharomyces Boulardii (Florastor) 250 mg PO Q12 [facility] Last Admin: 08/06/17 09:07 Dose: Not Given Thiamine HCl (Vitamin B1 Tab) 100 mg PO DAILY [facility] Last Admin: 08/06/17 09:36 Dose: Not Given Zinc Sulfate (Zinc Sulfate 220 Mg Cap) 220 mg PO DAILY [facility] Last Admin: 08/06/17 09:36 Dose: Not Given - Labs Labs: 08/06/17 08:25 08/06/17 08:25 PT 10.6 SECONDS (9.7-12.2) 07/31/17 06:21 INR 1.0 07/31/17 06:21 APTT 27 SECONDS (21-34) 07/31/17 06:21 - Constitutional Appears: No Acute Distress, Chronically Ill - Head Exam Head Exam: ATRAUMATIC, NORMAL INSPECTION - Eye Exam Eye Exam: EOMI, Normal appearance - Neck Exam Neck Exam: Normal Inspection. absent: Tenderness - Respiratory Exam Respiratory Exam: Rhonchi, NORMAL BREATHING PATTERN - Cardiovascular Exam Cardiovascular Exam: REGULAR RHYTHM, +S1 - GI/Abdominal Exam GI & Abdominal Exam: Soft. absent: Tenderness - Extremities Exam Extremities Exam: Normal Inspection. absent: Tenderness - Neurological Exam Neurological Exam: Alert, CN II-XII Intact - Skin Skin Exam: Dry, Warm Assessment and Plan (1) TIA (transient ischemic attack) Status: Acute (2) ESRD (end stage renal disease) Status: Acute (3) Heart block AV complete Status: Acute (4) Type 2 diabetes mellitus with diabetic nephropathy Status: Acute - Assessment and Plan (Free Text) Plan: alteplase in each dialysis port dialysis MWF same meds consider PEG placement
[2017-08-07] MEDS: (Novolin R) Insulin Human Regular 100 units/ml vial SC SCH ×4 (00:23→18:34)
[2017-08-07] MEDS: Albuterol-Ipratrop 3 mg / 0.5 (3 ml) UD INH SCH ×4 (01:18→19:31)
[2017-08-07] MEDS: Pantoprazole 40 mg Susp UD GT SCH ×2 (06:05→18:24)
[2017-08-07] MEDS: Levothyroxine 50 MCG TAB PO SCH (06:06)
[2017-08-07 06:21] LABS: BASO # 0.1 K/uL (0.0-0.2); BASO % 0.8 % (0.0-2.0); EOS # 0.4 K/uL (0.0-0.7); EOS % 4.3 % (0.0-4.0); LYMPH # 1.3 K/uL (1.0-4.3); LYMPH % 15.7 % (20.0-40.0); MEAN CORPUSCULAR HEMOGLOBIN 32.9 pg (27.0-31.0); MEAN CORPUSCULAR HGB CONC 33.6 g/dL (33.0-37.0); MEAN PLATELET VOLUME 8.5 fL (7.2-11.7); MONO # 1.3 K/uL (0.0-0.8); MONO % 15.4 % (0.0-10.0); NEUT # 5.3 K/uL (1.8-7.0); NEUT % 63.8 % (50.0-75.0); NRBC % 0.4 % (0.0-2.0); RBC 2.74 Mil/uL (4.40-5.90); RED CELL DISTRIBUTION WIDTH 22.3 % (11.5-14.5); WHITE BLOOD COUNT 8.3 K/uL (4.8-10.8)
[2017-08-07 07:24] LABS: ALB/GLOB RATIO 0.8 (1.0-2.1); ALBUMIN 2.7 g/dL (3.5-5.0); CALCIUM 8.6 mg/dl (8.6-10.4)
--- NOTE | 2017-08-07 07:26 | CP.PCM.PN ---
<Marilyn Lyn - Last Filed: 08/07/17 10:40> Subjective - Date & Time of Evaluation Date of Evaluation: 08/07/17 Time of Evaluation: 07:24 - Subjective Subjective: Medicine progress note for Dr. Gibson Patient was seen and examined at bedside in no acute distress. Patient reports he is "feeling a little better" than yesterday. Patient denies chest pain, abdominal pain, dyspnea, nausea, vomiting, fevers, headaches, constipation, and diarrhea. Per nursing, no events overnight. Patient had a BM earlier this morning. Objective - Vital Signs/Intake and Output Vital Signs (last 24 hours): Temp Pulse Resp BP Pulse Ox 98.2 F 85 18 146/64 97 08/07/17 04:20 08/07/17 04:20 08/07/17 04:20 08/07/17 04:20 08/07/17 04:20 Intake and Output: 08/07/17 08/07/17 06:59 18:59 Intake Total 725 Balance 725 - Medications Medications: Current Medications Acetaminophen (Tylenol 325mg Tab) 650 mg PO Q6 PRN PRN Reason: Fever >100.4 F Last Admin: 08/02/17 00:25 Dose: 650 mg Albuterol/Ipratropium (Duoneb 3 Mg/0.5 Mg (3 Ml) Ud) 3 ml INH RQ6 [facility] Last Admin: 08/07/17 01:18 Dose: 3 ml Artificial Tears (Artificial Tears) 0 ml OD Q3H PRN PRN Reason: Dry eyes Last Admin: 08/06/17 05:26 Dose: 1 drop Ascorbic Acid (Vitamin C 500 Mg Tab) 500 mg PO DAILY [facility] Last Admin: 08/06/17 13:56 Dose: 500 mg Calcium Acetate (Phoslo) 667 mg PO TIDCC [facility] Last Admin: 08/06/17 18:21 Dose: 667 mg Carvedilol (Coreg) 6.25 mg PO BID [facility] Last Admin: 08/06/17 18:21 Dose: 6.25 mg Clopidogrel Bisulfate (Plavix) 75 mg PO DAILY [facility] Last Admin: 08/06/17 13:55 Dose: 75 mg Epoetin Kumar (Procrit) 10,000 unit IV MWF [facility] Last Admin: 08/06/17 13:09 Dose: 10,000 unit Folic Acid (Folic Acid) 1 mg PO DAILY [facility] Last Admin: 08/06/17 13:56 Dose: 1 mg Insulin Human Regular (Novolin R) 0 unit SC Q6 [facility] PRN Reason: Protocol Last Admin: 08/07/17 06:06 Dose: 4 units Levetiracetam (Keppra) 250 mg PO BID [facility] Last Admin: 08/06/17 18:21 Dose: 250 mg Levothyroxine Sodium (Synthroid) 50 mcg PO DAILY@0630 [facility] Last Admin: 08/07/17 06:06 Dose: 50 mcg Losartan Potassium (Cozaar) 25 mg PO DAILY [facility] Last Admin: 08/06/17 13:56 Dose: 25 mg Modafinil (Provigil) 50 mg PO DAILY [facility] Last Admin: 08/06/17 13:55 Dose: 50 mg Multivitamins (Hexavitamin) 1 tab PO DAILY [facility] Last Admin: 08/06/17 13:55 Dose: 1 tab Pantoprazole Sodium (Protonix Susp) 40 mg GT 0600,1600 [facility] Last Admin: 08/07/17 06:05 Dose: 40 mg Saccharomyces Boulardii (Florastor) 250 mg PO Q12 [facility] Last Admin: 08/06/17 21:42 Dose: 250 mg Thiamine HCl (Vitamin B1 Tab) 100 mg PO DAILY [facility] Last Admin: 08/06/17 09:36 Dose: Not Given Zinc Sulfate (Zinc Sulfate 220 Mg Cap) 220 mg PO DAILY [facility] Last Admin: 08/06/17 13:56 Dose: 220 mg - Labs Labs: 08/07/17 06:11 08/06/17 08:25 PT 10.6 SECONDS (9.7-12.2) 07/31/17 06:21 INR 1.0 07/31/17 06:21 APTT 27 SECONDS (21-34) 07/31/17 06:21 - Additional Findings Additional findings: - Constitutional Appears: No Acute Distress - Head Exam Head Exam: ATRAUMATIC, NORMAL INSPECTION - Eye Exam Eye Exam: EOMI Additional comments: arcus senalis - ENT Exam ENT Exam: Mucous Membranes Dry; NGT in place - Respiratory Exam Respiratory Exam: Rales, NORMAL BREATHING PATTERN. absent: Clear to Ausculation Bilateral, Rhonchi, Wheezes, Respiratory Distress - Cardiovascular Exam Cardiovascular Exam: +S1, +S2 - GI/Abdominal Exam GI & Abdominal Exam: Normal Bowel Sounds. absent: Distended, Firm, Soft, Tenderness - Neurological Exam Neurological Exam: Awake, Oriented x3 - Psychiatric Exam Psychiatric exam: Flat Affect - Skin Skin Exam: Dry, Intact, Normal Color, Warm Assessment and Plan - Assessment and Plan (Free Text) Plan: This is a 76 year old male with HTN, DM, Hypercholesterimia, CAD, CABG with 5 vessel disease, ESRD on peritoneal dialysis, with symptomatic bradycardia s/p pacemaker placed [address] Valencia, hypothyroidism, who presented to the ED on 07/28 for dysphagia and slurred speech, was diagnosed with Yu's Palsy. Patient is with persistent AMS 2/2 Metabolic Encephalopathy. Started on HD. S/P left AVF, right permacath 07/31. On NG feeds. Plan: 1. Right Yu's Palsy - Neurology: Dr. Thompson/Dr. Rivera - on board - Head CT (07/13): Confluent area of low attenuation within the right frontal subcortical white matter suggestive for chronic ischemic change; Scattered areas of chronic microvascular ischemic change; Prominent ventricles; No evidence of acute intracranial hemorrhage. - Head CT (07/18): No acute intracranial hemorrhage; Moderate chronic white matter ischemic changes with chronic right superior frontal lobe infarct; Moderate generalized volume loss. - Head CT (07/21): No intracranial mass, hemorrhage or evidence of acute infarct. Right frontal encephalomalacia, possibly old MCA territory infarct. Small nonspecific right mastoid effusion. Chronic white matter ischemic change. - Head CT (07/30): No acute intracranial hemorrhage; Moderate chronic white matter ischemic changes with chronic right superior frontal lobe infarct; Moderate generalized volume loss. * Per Neurology, patient has subacute cva (prior to admission). Patient's facial palsy due to yu's palsy, not due to acute cva. 2. Syptomatic bradycardia - s/p pace maker by Dr Valencia 3. Metabolic Encephalopathy - Subacute to chronic infarct on the CT head involving the right frontal lobe, the patient is unlikely to have meningoencephalitis and likely has a combination of toxic-metabolic encephalopathy and cerebral ischemia. - Not able to have MRI - due to recent PPM placement - Keppra 250mg PO BID 4. Hx CVA - Crestor 10mg - Held Plavix 75mg in prep for possible PEG tube 5. HTN, CAD, CABG with 5 vessel disease, - Coreg 6.25mg PO BID, Cozaar 25mg, Crestor 10mg - Held Plavix 75mg in prep for possible PEG tube 6. Acute Respiratory Failure - Extubated 07/27/17 7. Hypothyroidism - Resumed Synthroid 50mcg 8. DM - Accuchecks - ISS - medium - A1C 8.4 9. Cirrhosis - Etiology unclear - Dr. Irvin consulted 10. ESRD on HD with new L AVF, Right Permacath (MWF) - Previously on peritoneal dialysis, removed PD catheter 07/31 - S/P AVF, Right Permacath 07/31 - Continue procrit and phoslo - Hemodialysis as per nephrology team 11. Anemia of Chronic Disease - Continue with Procrit S/P transfused 1 unit PRBC 07/23, transfused 1 unit - during dialysis - Ferrlecit daily x 1 week - Stool occult- negative 12.s/p possible Sepsis - ID consulted - Dr. Gabe Villegas - Work up negative - Per ID, discontinued vanco (08/01) and acyclovir (08/02) 13. Prophylaxis: - Pepcid / to steroids - Heparin during HD - Held Plavix 75mg in prep for possible PEG tube 14. Diet - NGT in place; failed swallow eval x 2 - Speech evaluation for swallowing trial and PEG - d/w daughter at bedside about PEG placement and question answered about PEG - GI consulted, Dr. Irvin, for possible PEG tube placement. Help appreciated. * Ordered abdominal US to determine if patient has ascities. If patient has ascites, GI will not be able to place PEG tube, will have to consult IR. * Abdominal US: chronic renal parenchymal disease with atrophic kidneys; small bilateral pleural effusions; no abdominal ascites. - Barium swallow: f/u 15. PT/OT Disposition: Barrium swallow scheduled for today- follow up results. Continue PT /OT <Glen Gibson - Last Filed: 08/07/17 11:49> Objective - Vital Signs/Intake and Output Vital Signs (last 24 hours): Temp Pulse Resp BP Pulse Ox 99.2 F 83 20 155/86 H 98 08/07/17 09:29 08/07/17 09:29 08/07/17 09:29 08/07/17 09:29 08/07/17 09:29 Intake and Output: 08/07/17 08/07/17 06:59 18:59 Intake Total 725 Balance 725 - Medications Medications: Current Medications Acetaminophen (Tylenol 325mg Tab) 650 mg PO Q6 PRN PRN Reason: Fever >100.4 F Last Admin: 08/02/17 00:25 Dose: 650 mg Albuterol/Ipratropium (Duoneb 3 Mg/0.5 Mg (3 Ml) Ud) 3 ml INH RQ6 [facility] Last Admin: 08/07/17 07:52 Dose: 3 ml Artificial Tears (Artificial Tears) 0 ml OD Q3H PRN PRN Reason: Dry eyes Last Admin: 08/06/17 05:26 Dose: 1 drop Ascorbic Acid (Vitamin C 500 Mg Tab) 500 mg PO DAILY [facility] Last Admin: 08/07/17 10:17 Dose: 500 mg Calcium Acetate (Phoslo) 667 mg PO TIDCC [facility] Last Admin: 08/07/17 08:51 Dose: 667 mg Carvedilol (Coreg) 6.25 mg PO BID [facility] Last Admin: 08/07/17 10:17 Dose: 6.25 mg Clopidogrel Bisulfate (Plavix) 75 mg PO DAILY [facility] Last Admin: 08/07/17 10:28 Dose: Not Given Epoetin Kumar (Procrit) 10,000 unit IV MWF [facility] Last Admin: 08/06/17 13:09 Dose: 10,000 unit Folic Acid (Folic Acid) 1 mg PO DAILY [facility] Last Admin: 08/07/17 10:17 Dose: 1 mg Insulin Human Regular (Novolin R) 0 unit SC Q6 [facility] PRN Reason: Protocol Last Admin: 08/07/17 06:06 Dose: 4 units Levetiracetam (Keppra) 250 mg PO BID [facility] Last Admin: 08/07/17 10:17 Dose: 250 mg Levothyroxine Sodium (Synthroid) 50 mcg PO DAILY@0630 [facility] Last Admin: 08/07/17 06:06 Dose: 50 mcg Losartan Potassium (Cozaar) 25 mg PO DAILY [facility] Last Admin: 08/07/17 10:17 Dose: 25 mg Modafinil (Provigil) 50 mg PO DAILY [facility] Last Admin: 08/07/17 10:17 Dose: 50 mg Multivitamins (Hexavitamin) 1 tab PO DAILY [facility] Last Admin: 08/07/17 10:17 Dose: 1 tab Pantoprazole Sodium (Protonix Susp) 40 mg GT 0600,1600 [facility] Last Admin: 08/07/17 06:05 Dose: 40 mg Saccharomyces Boulardii (Florastor) 250 mg PO Q12 [facility] Last Admin: 08/07/17 10:17 Dose: 250 mg Thiamine HCl (Vitamin B1 Tab) 100 mg PO DAILY [facility] Last Admin: 08/07/17 10:17 Dose: 100 mg Zinc Sulfate (Zinc Sulfate 220 Mg Cap) 220 mg PO DAILY [facility] Last Admin: 08/07/17 10:17 Dose: 220 mg - Labs Labs: 08/07/17 06:11 08/07/17 06:11 PT 10.6 SECONDS (9.7-12.2) 07/31/17 06:21 INR 1.0 07/31/17 06:21 APTT 27 SECONDS (21-34) 07/31/17 06:21 Attending/Attestation - Attestation I have personally seen and examined this patient.: Yes I have fully participated in the care of the patient.: Yes I have reviewed all pertinent clinical information, including history, physical exam and plan: Yes Notes (Text): 08/07/17 11:46 Medical attending: Patient was seen and examined by me. Agree with the above note by the resident. The patient was with family members at bedside today. We again discussed. He will later be going for a barium swallow study to further assess the patient' s dysphaga. Family is willing to consider a PEG tube if needed but wanted to see what the barium swallow study showed first Glen Gibson
[2017-08-07] MEDS: Multiple Vitamins Tab PO SCH (10:17)
[2017-08-07] MEDS: Modafinil 50 MG TAB PO SCH (10:17)
[2017-08-07] MEDS: Saccharomyces Boulardi 250 mg Cap PO SCH ×2 (10:17→21:49)
--- NOTE | 2017-08-07 10:59 | CP.PCM.PN ---
Subjective - Date & Time of Evaluation Date of Evaluation: 08/07/17 Time of Evaluation: 10:56 - Subjective Subjective: stable dialysis course- done on 08/06 remains on GT feeds BP reasonable still lethargic- no changes chemistries acceptable Objective - Vital Signs/Intake and Output Vital Signs (last 24 hours): Temp Pulse Resp BP Pulse Ox 99.2 F 83 20 155/86 H 98 08/07/17 09:29 08/07/17 09:29 08/07/17 09:29 08/07/17 09:29 08/07/17 09:29 Intake and Output: 08/07/17 08/07/17 06:59 18:59 Intake Total 725 Balance 725 - Medications Medications: Current Medications Acetaminophen (Tylenol 325mg Tab) 650 mg PO Q6 PRN PRN Reason: Fever >100.4 F Last Admin: 08/02/17 00:25 Dose: 650 mg Albuterol/Ipratropium (Duoneb 3 Mg/0.5 Mg (3 Ml) Ud) 3 ml INH RQ6 [facility] Last Admin: 08/07/17 07:52 Dose: 3 ml Artificial Tears (Artificial Tears) 0 ml OD Q3H PRN PRN Reason: Dry eyes Last Admin: 08/06/17 05:26 Dose: 1 drop Ascorbic Acid (Vitamin C 500 Mg Tab) 500 mg PO DAILY [facility] Last Admin: 08/07/17 10:17 Dose: 500 mg Calcium Acetate (Phoslo) 667 mg PO TIDCC [facility] Last Admin: 08/07/17 08:51 Dose: 667 mg Carvedilol (Coreg) 6.25 mg PO BID [facility] Last Admin: 08/07/17 10:17 Dose: 6.25 mg Clopidogrel Bisulfate (Plavix) 75 mg PO DAILY [facility] Last Admin: 08/07/17 10:28 Dose: Not Given Epoetin Kumar (Procrit) 10,000 unit IV MWF [facility] Last Admin: 08/06/17 13:09 Dose: 10,000 unit Folic Acid (Folic Acid) 1 mg PO DAILY [facility] Last Admin: 08/07/17 10:17 Dose: 1 mg Insulin Human Regular (Novolin R) 0 unit SC Q6 [facility] PRN Reason: Protocol Last Admin: 08/07/17 06:06 Dose: 4 units Levetiracetam (Keppra) 250 mg PO BID [facility] Last Admin: 08/07/17 10:17 Dose: 250 mg Levothyroxine Sodium (Synthroid) 50 mcg PO DAILY@0630 [facility] Last Admin: 08/07/17 06:06 Dose: 50 mcg Losartan Potassium (Cozaar) 25 mg PO DAILY [facility] Last Admin: 08/07/17 10:17 Dose: 25 mg Modafinil (Provigil) 50 mg PO DAILY [facility] Last Admin: 08/07/17 10:17 Dose: 50 mg Multivitamins (Hexavitamin) 1 tab PO DAILY [facility] Last Admin: 08/07/17 10:17 Dose: 1 tab Pantoprazole Sodium (Protonix Susp) 40 mg GT 0600,1600 [facility] Last Admin: 08/07/17 06:05 Dose: 40 mg Saccharomyces Boulardii (Florastor) 250 mg PO Q12 [facility] Last Admin: 08/07/17 10:17 Dose: 250 mg Thiamine HCl (Vitamin B1 Tab) 100 mg PO DAILY [facility] Last Admin: 08/07/17 10:17 Dose: 100 mg Zinc Sulfate (Zinc Sulfate 220 Mg Cap) 220 mg PO DAILY [facility] Last Admin: 08/07/17 10:17 Dose: 220 mg - Labs Labs: 08/07/17 06:11 08/07/17 06:11 PT 10.6 SECONDS (9.7-12.2) 07/31/17 06:21 INR 1.0 07/31/17 06:21 APTT 27 SECONDS (21-34) 07/31/17 06:21 - Constitutional Appears: No Acute Distress, Confused, Chronically Ill - Head Exam Head Exam: ATRAUMATIC, NORMAL INSPECTION - Eye Exam Eye Exam: EOMI, Normal appearance - Neck Exam Neck Exam: Normal Inspection. absent: Tenderness - Respiratory Exam Respiratory Exam: Clear to Ausculation Bilateral, NORMAL BREATHING PATTERN - Cardiovascular Exam Cardiovascular Exam: REGULAR RHYTHM, +S1 - GI/Abdominal Exam GI & Abdominal Exam: Soft. absent: Tenderness - Extremities Exam Extremities Exam: Normal Inspection. absent: Pedal Edema, Tenderness - Neurological Exam Neurological Exam: Altered - Skin Skin Exam: Dry, Warm Assessment and Plan (1) TIA (transient ischemic attack) Status: Acute (2) ESRD (end stage renal disease) Status: Acute (3) Heart block AV complete Status: Acute (4) Type 2 diabetes mellitus with diabetic nephropathy Status: Acute - Assessment and Plan (Free Text) Plan: same dialysis MWF repeat swallow study PEG consideration follow up yaotes
--- NOTE | 2017-08-07 11:51 | CP.PCM.PN ---
<Lucho,Hilda - Last Filed: 08/07/17 11:51> Subjective - Date & Time of Evaluation Date of Evaluation: 08/07/17 Time of Evaluation: 07:00 - Subjective Subjective: GI Fellow PGY4 Progress Note Pt seen and evaluated at bedside, pt responds to name. Pt with NGT and tolerating tube feeds. GI reconsulted for possible PEG. ROS: A 12pt ROS was negative except as above Objective - Vital Signs/Intake and Output Vital Signs (last 24 hours): Temp Pulse Resp BP Pulse Ox 99.2 F 83 20 155/86 H 98 08/07/17 09:29 08/07/17 09:29 08/07/17 09:29 08/07/17 09:29 08/07/17 09:29 Intake and Output: 08/07/17 08/07/17 06:59 18:59 Intake Total 725 Balance 725 - Medications Medications: Current Medications Acetaminophen (Tylenol 325mg Tab) 650 mg PO Q6 PRN PRN Reason: Fever >100.4 F Last Admin: 08/02/17 00:25 Dose: 650 mg Albuterol/Ipratropium (Duoneb 3 Mg/0.5 Mg (3 Ml) Ud) 3 ml INH RQ6 [facility] Last Admin: 08/07/17 07:52 Dose: 3 ml Artificial Tears (Artificial Tears) 0 ml OD Q3H PRN PRN Reason: Dry eyes Last Admin: 08/06/17 05:26 Dose: 1 drop Ascorbic Acid (Vitamin C 500 Mg Tab) 500 mg PO DAILY [facility] Last Admin: 08/07/17 10:17 Dose: 500 mg Calcium Acetate (Phoslo) 667 mg PO TIDCC [facility] Last Admin: 08/07/17 08:51 Dose: 667 mg Carvedilol (Coreg) 6.25 mg PO BID [facility] Last Admin: 08/07/17 10:17 Dose: 6.25 mg Clopidogrel Bisulfate (Plavix) 75 mg PO DAILY [facility] Last Admin: 08/07/17 10:28 Dose: Not Given Epoetin Kumar (Procrit) 10,000 unit IV MWF [facility] Last Admin: 08/06/17 13:09 Dose: 10,000 unit Folic Acid (Folic Acid) 1 mg PO DAILY [facility] Last Admin: 08/07/17 10:17 Dose: 1 mg Insulin Human Regular (Novolin R) 0 unit SC Q6 [facility] PRN Reason: Protocol Last Admin: 08/07/17 06:06 Dose: 4 units Levetiracetam (Keppra) 250 mg PO BID [facility] Last Admin: 08/07/17 10:17 Dose: 250 mg Levothyroxine Sodium (Synthroid) 50 mcg PO DAILY@0630 [facility] Last Admin: 08/07/17 06:06 Dose: 50 mcg Losartan Potassium (Cozaar) 25 mg PO DAILY [facility] Last Admin: 08/07/17 10:17 Dose: 25 mg Modafinil (Provigil) 50 mg PO DAILY [facility] Last Admin: 08/07/17 10:17 Dose: 50 mg Multivitamins (Hexavitamin) 1 tab PO DAILY [facility] Last Admin: 08/07/17 10:17 Dose: 1 tab Pantoprazole Sodium (Protonix Susp) 40 mg GT 0600,1600 [facility] Last Admin: 08/07/17 06:05 Dose: 40 mg Saccharomyces Boulardii (Florastor) 250 mg PO Q12 [facility] Last Admin: 08/07/17 10:17 Dose: 250 mg Thiamine HCl (Vitamin B1 Tab) 100 mg PO DAILY [facility] Last Admin: 08/07/17 10:17 Dose: 100 mg Zinc Sulfate (Zinc Sulfate 220 Mg Cap) 220 mg PO DAILY [facility] Last Admin: 08/07/17 10:17 Dose: 220 mg - Labs Labs: 08/07/17 06:11 08/07/17 06:11 PT 10.6 SECONDS (9.7-12.2) 07/31/17 06:21 INR 1.0 07/31/17 06:21 APTT 27 SECONDS (21-34) 07/31/17 06:21 - Constitutional Appears: Non-toxic, No Acute Distress, Chronically Ill - Head Exam Head Exam: ATRAUMATIC, NORMAL INSPECTION, NORMOCEPHALIC - Eye Exam Eye Exam: EOMI, Normal appearance, PERRL Pupil Exam: PERRL - ENT Exam ENT Exam: Mucous Membranes Dry Additional comments: NGT - Neck Exam Neck Exam: Full ROM, Normal Inspection - Respiratory Exam Respiratory Exam: Decreased Breath Sounds, NORMAL BREATHING PATTERN - Cardiovascular Exam Cardiovascular Exam: REGULAR RHYTHM, +S1, +S2 - GI/Abdominal Exam GI & Abdominal Exam: Soft, Normal Bowel Sounds. absent: Distended, Guarding, Rigid, Tenderness, Organomegaly - Rectal Exam Rectal Exam: Deferred - Neurological Exam Neurological Exam: Alert, Awake, Oriented x3 - Psychiatric Exam Psychiatric exam: Normal Affect, Normal Mood - Skin Skin Exam: Dry, Intact, Normal Color, Warm Assessment and Plan - Assessment and Plan (Free Text) Assessment: This is a 77yM with pmhx of ESRD on peritoneal dialysis, HTN / DM, CAD s/p CABG , complete HB s/p PPM presenting with lethargy and confusion. 1. Metabolic encephalopathy 2. CVA 3. Yu's palsy 4. Cirrhosis-unclear etilogy 5. Dysphagia 6. ESRD 7. Hx CABG 8. Failure to thrive Plan: -Continue supportive care -Continue TF with NGT -Pt with no ascites on repeat US -Also, pt is on Plavix therapy, will need cardiac/neuro clearance to stop mediation 5days prior to any plans for procedure -Discussed with pt's family agreeable to PEG -Speech and swallow evaluation reviewed, plan for barium evaluation today -Plan for PEG next week if plavix held <Mayur Irvin - Last Filed: 08/07/17 13:30> Objective - Vital Signs/Intake and Output Vital Signs (last 24 hours): Temp Pulse Resp BP Pulse Ox 99.2 F 83 20 155/86 H 98 08/07/17 09:29 08/07/17 09:29 08/07/17 09:29 08/07/17 09:29 08/07/17 09:29 Intake and Output: 08/07/17 08/07/17 06:59 18:59 Intake Total 725 Balance 725 - Medications Medications: Current Medications Acetaminophen (Tylenol 325mg Tab) 650 mg PO Q6 PRN PRN Reason: Fever >100.4 F Last Admin: 08/02/17 00:25 Dose: 650 mg Albuterol/Ipratropium (Duoneb 3 Mg/0.5 Mg (3 Ml) Ud) 3 ml INH RQ6 [facility] Last Admin: 08/07/17 07:52 Dose: 3 ml Artificial Tears (Artificial Tears) 0 ml OD Q3H PRN PRN Reason: Dry eyes Last Admin: 08/06/17 05:26 Dose: 1 drop Ascorbic Acid (Vitamin C 500 Mg Tab) 500 mg PO DAILY [facility] Last Admin: 08/07/17 10:17 Dose: 500 mg Calcium Acetate (Phoslo) 667 mg PO TIDCC [facility] Last Admin: 08/07/17 13:14 Dose: 667 mg Carvedilol (Coreg) 6.25 mg PO BID [facility] Last Admin: 08/07/17 10:17 Dose: 6.25 mg Clopidogrel Bisulfate (Plavix) 75 mg PO DAILY [facility] Last Admin: 08/07/17 10:28 Dose: Not Given Epoetin Kumar (Procrit) 10,000 unit IV MWF [facility] Last Admin: 08/06/17 13:09 Dose: 10,000 unit Folic Acid (Folic Acid) 1 mg PO DAILY [facility] Last Admin: 08/07/17 10:17 Dose: 1 mg Insulin Human Regular (Novolin R) 0 unit SC Q6 [facility] PRN Reason: Protocol Last Admin: 08/07/17 13:14 Dose: 4 units Levetiracetam (Keppra) 250 mg PO BID [facility] Last Admin: 08/07/17 10:17 Dose: 250 mg Levothyroxine Sodium (Synthroid) 50 mcg PO DAILY@0630 [facility] Last Admin: 08/07/17 06:06 Dose: 50 mcg Losartan Potassium (Cozaar) 25 mg PO DAILY [facility] Last Admin: 08/07/17 10:17 Dose: 25 mg Modafinil (Provigil) 50 mg PO DAILY [facility] Last Admin: 08/07/17 10:17 Dose: 50 mg Multivitamins (Hexavitamin) 1 tab PO DAILY [facility] Last Admin: 08/07/17 10:17 Dose: 1 tab Pantoprazole Sodium (Protonix Susp) 40 mg GT 0600,1600 [facility] Last Admin: 08/07/17 06:05 Dose: 40 mg Saccharomyces Boulardii (Florastor) 250 mg PO Q12 [facility] Last Admin: 08/07/17 10:17 Dose: 250 mg Thiamine HCl (Vitamin B1 Tab) 100 mg PO DAILY [facility] Last Admin: 08/07/17 10:17 Dose: 100 mg Zinc Sulfate (Zinc Sulfate 220 Mg Cap) 220 mg PO DAILY [facility] Last Admin: 08/07/17 10:17 Dose: 220 mg - Labs Labs: 08/07/17 06:11 08/07/17 06:11 PT 10.6 SECONDS (9.7-12.2) 07/31/17 06:21 INR 1.0 07/31/17 06:21 APTT 27 SECONDS (21-34) 07/31/17 06:21 Attending/Attestation - Attestation I have personally seen and examined this patient.: Yes I have fully participated in the care of the patient.: Yes I have reviewed all pertinent clinical information, including history, physical exam and plan: Yes Notes (Text): 08/07/17 13:24 I have seen and examined patient with GI fellow. No acute events overnight, he remains lethargic and minimally arousable. There is no reported abdominal pain , vomiting, fever/chills. Tolerating NGT feeding without difficulty. Review of vitals from today shows elevated BP. ESRD on HD CAD/CABG on plavix CHB s/p PPM CVA DM / HTN Cirrhosis - unclear etiology - NGT feeding as tolerated - Patient with ongoing requirement for tube feeding, will likely require PEG placement for nutritional support - Awaiting results of barium swallow - Will require cardio/neuro clearance prior to potential PEG placement since plavix will need to be held. Case discussed with family members (, son) at bedside.
--- NOTE | 2017-08-07 14:03 | RAD ---
PROCEDURE: Modified barium swallow study. HISTORY: Dysphagia COMPARISON: None available. TECHNIQUE: Under fluoroscopic guidance, barium meals of various consistency were administered to the patient by the speech pathologist. FINDINGS: Penetration and/or aspiration was observed during this study with differing food substances. IMPRESSION: Penetration and/or aspiration observed. Please refer to the detailed report and recommendations of the speech pathologist.
[2017-08-08] MEDS: (Novolin R) Insulin Human Regular 100 units/ml vial SC SCH ×4 (00:17→18:12)
[2017-08-08] MEDS: Albuterol-Ipratrop 3 mg / 0.5 (3 ml) UD INH SCH ×4 (01:15→21:10)
[2017-08-08] MEDS: Levothyroxine 50 MCG TAB PO SCH (05:42)
[2017-08-08] MEDS: Pantoprazole 40 mg Susp UD GT SCH (05:42)
[2017-08-08 06:27] LABS: BASO # 0.1 K/uL (0.0-0.2); EOS # 0.5 K/uL (0.0-0.7); EOS % 4.9 % (0.0-4.0); HEMOGLOBIN 9.4 g/dL (12.0-18.0); LYMPH # 1.3 K/uL (1.0-4.3); LYMPH % 13.5 % (20.0-40.0); MEAN CELL VOLUME 96.5 fL (80.0-94.0); MEAN CORPUSCULAR HEMOGLOBIN 32.6 pg (27.0-31.0); MEAN CORPUSCULAR HGB CONC 33.8 g/dL (33.0-37.0); MEAN PLATELET VOLUME 8.6 fL (7.2-11.7); MONO # 1.4 K/uL (0.0-0.8); MONO % 13.9 % (0.0-10.0); NEUT # 6.6 K/uL (1.8-7.0); NEUT % 66.7 % (50.0-75.0); NRBC % 0.2 % (0.0-2.0); RBC 2.89 Mil/uL (4.40-5.90); RED CELL DISTRIBUTION WIDTH 22.4 % (11.5-14.5); WHITE BLOOD COUNT 9.9 K/uL (4.8-10.8)
[2017-08-08 06:46] LABS: ALB/GLOB RATIO 0.9 (1.0-2.1); ALBUMIN 2.9 g/dL (3.5-5.0)
--- NOTE | 2017-08-08 07:23 | CP.PCM.PN ---
<Marilyn Lyn - Last Filed: 08/08/17 15:04> Subjective - Date & Time of Evaluation Date of Evaluation: 08/08/17 Time of Evaluation: 07:23 - Subjective Subjective: Medicine progress note for Dr. Gibson Patient was seen and examined at bedside in no acute distress. Patient says he feels ok and nods yes/no in response to review of systems. Patient denies chest pain, abdominal pain, dyspnea, nausea, vomiting, fevers, headaches, constipation , and diarrhea. Per nursing, no events overnight. Objective - Vital Signs/Intake and Output Vital Signs (last 24 hours): Temp Pulse Resp BP Pulse Ox 98.0 F 78 20 136/57 L 96 08/08/17 04:10 08/08/17 04:10 08/08/17 04:10 08/08/17 04:10 08/08/17 04:10 Intake and Output: 08/08/17 08/08/17 06:59 18:59 Intake Total 805 Balance 805 - Medications Medications: Current Medications Acetaminophen (Tylenol 325mg Tab) 650 mg PO Q6 PRN PRN Reason: Fever >100.4 F Last Admin: 08/02/17 00:25 Dose: 650 mg Albuterol/Ipratropium (Duoneb 3 Mg/0.5 Mg (3 Ml) Ud) 3 ml INH RQ6 [facility] Last Admin: 08/08/17 01:15 Dose: 3 ml Artificial Tears (Artificial Tears) 0 ml OD Q3H PRN PRN Reason: Dry eyes Last Admin: 08/06/17 05:26 Dose: 1 drop Ascorbic Acid (Vitamin C 500 Mg Tab) 500 mg PO DAILY [facility] Last Admin: 08/07/17 10:17 Dose: 500 mg Calcium Acetate (Phoslo) 667 mg PO TIDCC [facility] Last Admin: 08/07/17 18:24 Dose: 667 mg Carvedilol (Coreg) 6.25 mg PO BID [facility] Last Admin: 08/07/17 18:22 Dose: 6.25 mg Clopidogrel Bisulfate (Plavix) 75 mg PO DAILY [facility] Last Admin: 08/07/17 10:28 Dose: Not Given Epoetin Kumar (Procrit) 10,000 unit IV MWF [facility] Last Admin: 08/06/17 13:09 Dose: 10,000 unit Folic Acid (Folic Acid) 1 mg PO DAILY [facility] Last Admin: 08/07/17 10:17 Dose: 1 mg Insulin Human Regular (Novolin R) 0 unit SC Q6 [facility] PRN Reason: Protocol Last Admin: 08/08/17 06:45 Dose: 6 units Levetiracetam (Keppra) 250 mg PO BID [facility] Last Admin: 08/07/17 18:24 Dose: 250 mg Levothyroxine Sodium (Synthroid) 50 mcg PO DAILY@0630 [facility] Last Admin: 08/08/17 05:42 Dose: 50 mcg Losartan Potassium (Cozaar) 25 mg PO DAILY [facility] Last Admin: 08/07/17 10:17 Dose: 25 mg Modafinil (Provigil) 50 mg PO DAILY [facility] Last Admin: 08/07/17 10:17 Dose: 50 mg Multivitamins (Hexavitamin) 1 tab PO DAILY [facility] Last Admin: 08/07/17 10:17 Dose: 1 tab Pantoprazole Sodium (Protonix Susp) 40 mg GT 0600,1600 [facility] Last Admin: 08/08/17 05:42 Dose: 40 mg Saccharomyces Boulardii (Florastor) 250 mg PO Q12 [facility] Last Admin: 08/07/17 21:49 Dose: 250 mg Thiamine HCl (Vitamin B1 Tab) 100 mg PO DAILY [facility] Last Admin: 08/07/17 10:17 Dose: 100 mg Zinc Sulfate (Zinc Sulfate 220 Mg Cap) 220 mg PO DAILY [facility] Last Admin: 08/07/17 10:17 Dose: 220 mg - Labs Labs: 08/08/17 06:19 08/08/17 06:19 PT 10.6 SECONDS (9.7-12.2) 07/31/17 06:21 INR 1.0 07/31/17 06:21 APTT 27 SECONDS (21-34) 07/31/17 06:21 - Additional Findings Additional findings: - Constitutional Appears: No Acute Distress - Head Exam Head Exam: ATRAUMATIC, NORMAL INSPECTION - Eye Exam Eye Exam: EOMI Additional comments: arcus senalis - ENT Exam ENT Exam: Mucous Membranes Dry; NGT in place - Respiratory Exam Respiratory Exam: Rales, NORMAL BREATHING PATTERN. absent: Clear to Ausculation Bilateral, Rhonchi, Wheezes, Respiratory Distress - Cardiovascular Exam Cardiovascular Exam: +S1, +S2 - GI/Abdominal Exam GI & Abdominal Exam: Normal Bowel Sounds. absent: Distended, Firm, Soft, Tenderness - Neurological Exam Neurological Exam: Awake, Oriented x3 - Psychiatric Exam Psychiatric exam: Flat Affect - Skin Skin Exam: Dry, Intact, Normal Color, Warm Assessment and Plan - Assessment and Plan (Free Text) Plan: This is a 76 year old male with HTN, DM, Hypercholesterimia, CAD, CABG with 5 vessel disease, ESRD on peritoneal dialysis, with symptomatic bradycardia s/p pacemaker placed [address] Valencia, hypothyroidism, who presented to the ED on 07/28 for dysphagia and slurred speech, was diagnosed with Yu's Palsy. Patient is with persistent AMS 2/2 Metabolic Encephalopathy. Started on HD. S/P left AVF, right permacath 07/31. On NG feeds. Plan: 1. Right Yu's Palsy - Neurology: Dr. Thompson/Dr. Rivera - on board - Head CT (07/13): Confluent area of low attenuation within the right frontal subcortical white matter suggestive for chronic ischemic change; Scattered areas of chronic microvascular ischemic change; Prominent ventricles; No evidence of acute intracranial hemorrhage. - Head CT (07/18): No acute intracranial hemorrhage; Moderate chronic white matter ischemic changes with chronic right superior frontal lobe infarct; Moderate generalized volume loss. - Head CT (07/21): No intracranial mass, hemorrhage or evidence of acute infarct. Right frontal encephalomalacia, possibly old MCA territory infarct. Small nonspecific right mastoid effusion. Chronic white matter ischemic change. - Head CT (07/30): No acute intracranial hemorrhage; Moderate chronic white matter ischemic changes with chronic right superior frontal lobe infarct; Moderate generalized volume loss. * Per Neurology, patient has subacute cva (prior to admission). Patient's facial palsy due to yu's palsy, not due to acute cva. 2. Syptomatic bradycardia - s/p pace maker by Dr Valencia 3. Metabolic Encephalopathy - Subacute to chronic infarct on the CT head involving the right frontal lobe, the patient is unlikely to have meningoencephalitis and likely has a combination of toxic-metabolic encephalopathy and cerebral ischemia. - Not able to have MRI - due to recent PPM placement - Keppra 250mg PO BID 4. Hx CVA - Crestor 10mg - Held Plavix 75mg in prep for PEG tube placement 5. HTN, CAD, CABG with 5 vessel disease, - Coreg 6.25mg PO BID, Cozaar 25mg, Crestor 10mg - Held Plavix 75mg in prep for PEG tube placement 6. Acute Respiratory Failure - Extubated 07/27/17 7. Hypothyroidism - Resumed Synthroid 50mcg 8. DM - Accuchecks - ISS - medium - A1C 8.4 9. Cirrhosis - Etiology unclear - Dr. Irvin consulted 10. ESRD on HD with new L AVF, Right Permacath (MWF) - Previously on peritoneal dialysis, removed PD catheter 07/31 - S/P AVF, Right Permacath 07/31 - Continue procrit and phoslo - Hemodialysis as per nephrology team 11. Anemia of Chronic Disease - Continue with Procrit S/P transfused 1 unit PRBC 07/23, transfused 1 unit - during dialysis - Ferrlecit daily x 1 week - Stool occult- negative 12.s/p possible Sepsis - ID consulted - Dr. Gabe Villegas - Work up negative - Per ID, discontinued vanco (08/01) and acyclovir (08/02) 13. Prophylaxis: - Pepcid / to steroids - Heparin during HD - Held Plavix 75mg in prep for possible PEG tube 14. Dysphagia/Diet - NGT in place; failed swallow eval x 2 - Speech evaluation for swallowing trial and PEG - d/w daughter at bedside about PEG placement and question answered about PEG - GI consulted, Dr. Irvin, for possible PEG tube placement. Help appreciated. * Ordered abdominal US to determine if patient has ascities. If patient has ascites, GI will not be able to place PEG tube, will have to consult IR. * Abdominal US: chronic renal parenchymal disease with atrophic kidneys; small bilateral pleural effusions; no abdominal ascites. - Barium swallow: penetration and/or aspiration observed. 15. PT/OT Disposition: Patient is tentatively planned for PEG placement on Friday. Plavix held since 08/07/17. Continue PT/OT <Glen Gibson - Last Filed: 08/08/17 15:20> Objective - Vital Signs/Intake and Output Vital Signs (last 24 hours): Temp Pulse Resp BP Pulse Ox 98.5 F 91 H 20 190/94 H 95 08/08/17 07:00 08/08/17 12:05 08/08/17 07:00 08/08/17 12:05 08/08/17 07:00 Intake and Output: 08/08/17 08/08/17 06:59 18:59 Intake Total 805 Balance 805 - Medications Medications: Current Medications Acetaminophen (Tylenol 325mg Tab) 650 mg PO Q6 PRN PRN Reason: Fever >100.4 F Last Admin: 08/02/17 00:25 Dose: 650 mg Albuterol/Ipratropium (Duoneb 3 Mg/0.5 Mg (3 Ml) Ud) 3 ml INH RQ6 [facility] Last Admin: 08/08/17 13:13 Dose: 3 ml Artificial Tears (Artificial Tears) 0 ml OD Q3H PRN PRN Reason: Dry eyes Last Admin: 08/06/17 05:26 Dose: 1 drop Ascorbic Acid (Vitamin C 500 Mg Tab) 500 mg PO DAILY [facility] Last Admin: 08/08/17 10:23 Dose: 500 mg Calcium Acetate (Phoslo) 667 mg PO TIDCC [facility] Last Admin: 08/08/17 11:51 Dose: 667 mg Carvedilol (Coreg) 6.25 mg PO BID [facility] Last Admin: 08/08/17 10:23 Dose: 6.25 mg Clopidogrel Bisulfate (Plavix) 75 mg PO DAILY [facility] Last Admin: 08/07/17 10:28 Dose: Not Given Epoetin Kumar (Procrit) 10,000 unit IV MWF [facility] Last Admin: 08/06/17 13:09 Dose: 10,000 unit Famotidine (Pepcid) 20 mg GT BID [facility] Ferric Sodium Gluconate Complex (Ferrlecit) 125 mg IVPB DAILY [facility] Stop: 08/09/17 13:31 Folic Acid (Folic Acid) 1 mg PO DAILY [facility] Last Admin: 08/08/17 10:23 Dose: 1 mg Insulin Human Regular (Novolin R) 0 unit SC Q6 [facility] PRN Reason: Protocol Last Admin: 08/08/17 11:51 Dose: 4 units Levetiracetam (Keppra) 250 mg PO BID [facility] Last Admin: 08/08/17 10:23 Dose: 250 mg Levothyroxine Sodium (Synthroid) 50 mcg PO DAILY@0630 [facility] Last Admin: 08/08/17 05:42 Dose: 50 mcg Losartan Potassium (Cozaar) 25 mg PO DAILY [facility] Last Admin: 08/08/17 10:23 Dose: 25 mg Modafinil (Provigil) 50 mg PO DAILY [facility] Last Admin: 08/08/17 10:23 Dose: 50 mg Multivitamins (Hexavitamin) 1 tab PO DAILY [facility] Last Admin: 08/08/17 10:23 Dose: 1 tab Saccharomyces Boulardii (Florastor) 250 mg PO Q12 [facility] Last Admin: 08/08/17 10:24 Dose: 250 mg Thiamine HCl (Vitamin B1 Tab) 100 mg PO DAILY [facility] Last Admin: 08/08/17 10:24 Dose: 100 mg Zinc Sulfate (Zinc Sulfate 220 Mg Cap) 220 mg PO DAILY [facility] Last Admin: 08/08/17 10:23 Dose: 220 mg - Labs Labs: 08/08/17 06:19 08/08/17 06:19 PT 10.6 SECONDS (9.7-12.2) 07/31/17 06:21 INR 1.0 07/31/17 06:21 APTT 27 SECONDS (21-34) 07/31/17 06:21 Attending/Attestation - Attestation I have personally seen and examined this patient.: Yes I have fully participated in the care of the patient.: Yes I have reviewed all pertinent clinical information, including history, physical exam and plan: Yes Notes (Text): 08/08/17 15:18 Medical attending: The patient was seen and examined by me, agrees the above note by the medical director of hospice. There was some initial concern that his NG tube was not flushing properly, however by the time I got there and flushed it myself it was functioning. I suspect probably nurses had a successfully declotted with warm water and by the time I got there it was functioning again. Per my discussion with speech language pathology, the patient should probably have a PEG tube only because the barium swallow did show some concerning findings on particularly with a pured diet And so at this moment the antiplatelets medications and held there tentative plans for possible PEG tube either this Friday or Friday. Family members are aware Thank you very much, Glen Gibson
--- NOTE | 2017-08-08 08:25 | CP.PCM.PN ---
<Lucho,Hilda - Last Filed: 08/08/17 08:26> Subjective - Date & Time of Evaluation Date of Evaluation: 08/08/17 Time of Evaluation: 08:00 - Subjective Subjective: GI Fellow PGY4 Progress Note Pt seen and evaluated at bedside, pt responds to name, more alert and awake. Pt with NGT and tolerating tube feeds. No acute events overnight. ROS: A 12pt ROS was negative except as above Objective - Vital Signs/Intake and Output Vital Signs (last 24 hours): Temp Pulse Resp BP Pulse Ox 98.5 F 76 20 117/73 95 08/08/17 07:00 08/08/17 07:00 08/08/17 07:00 08/08/17 07:00 08/08/17 07:00 Intake and Output: 08/08/17 08/08/17 06:59 18:59 Intake Total 805 Balance 805 - Medications Medications: Current Medications Acetaminophen (Tylenol 325mg Tab) 650 mg PO Q6 PRN PRN Reason: Fever >100.4 F Last Admin: 08/02/17 00:25 Dose: 650 mg Albuterol/Ipratropium (Duoneb 3 Mg/0.5 Mg (3 Ml) Ud) 3 ml INH RQ6 [facility] Last Admin: 08/08/17 07:27 Dose: 3 ml Artificial Tears (Artificial Tears) 0 ml OD Q3H PRN PRN Reason: Dry eyes Last Admin: 08/06/17 05:26 Dose: 1 drop Ascorbic Acid (Vitamin C 500 Mg Tab) 500 mg PO DAILY [facility] Last Admin: 08/07/17 10:17 Dose: 500 mg Calcium Acetate (Phoslo) 667 mg PO TIDCC [facility] Last Admin: 08/07/17 18:24 Dose: 667 mg Carvedilol (Coreg) 6.25 mg PO BID [facility] Last Admin: 08/07/17 18:22 Dose: 6.25 mg Clopidogrel Bisulfate (Plavix) 75 mg PO DAILY [facility] Last Admin: 08/07/17 10:28 Dose: Not Given Epoetin Kumar (Procrit) 10,000 unit IV MWF [facility] Last Admin: 08/06/17 13:09 Dose: 10,000 unit Folic Acid (Folic Acid) 1 mg PO DAILY [facility] Last Admin: 08/07/17 10:17 Dose: 1 mg Insulin Human Regular (Novolin R) 0 unit SC Q6 [facility] PRN Reason: Protocol Last Admin: 08/08/17 06:45 Dose: 6 units Levetiracetam (Keppra) 250 mg PO BID [facility] Last Admin: 08/07/17 18:24 Dose: 250 mg Levothyroxine Sodium (Synthroid) 50 mcg PO DAILY@0630 [facility] Last Admin: 08/08/17 05:42 Dose: 50 mcg Losartan Potassium (Cozaar) 25 mg PO DAILY [facility] Last Admin: 08/07/17 10:17 Dose: 25 mg Modafinil (Provigil) 50 mg PO DAILY [facility] Last Admin: 08/07/17 10:17 Dose: 50 mg Multivitamins (Hexavitamin) 1 tab PO DAILY [facility] Last Admin: 08/07/17 10:17 Dose: 1 tab Pantoprazole Sodium (Protonix Susp) 40 mg GT 0600 [facility] Saccharomyces Boulardii (Florastor) 250 mg PO Q12 [facility] Last Admin: 08/07/17 21:49 Dose: 250 mg Thiamine HCl (Vitamin B1 Tab) 100 mg PO DAILY [facility] Last Admin: 08/07/17 10:17 Dose: 100 mg Zinc Sulfate (Zinc Sulfate 220 Mg Cap) 220 mg PO DAILY [facility] Last Admin: 08/07/17 10:17 Dose: 220 mg - Labs Labs: 08/08/17 06:19 08/08/17 06:19 PT 10.6 SECONDS (9.7-12.2) 07/31/17 06:21 INR 1.0 07/31/17 06:21 APTT 27 SECONDS (21-34) 07/31/17 06:21 - Constitutional Appears: Non-toxic, No Acute Distress, Chronically Ill - Head Exam Head Exam: ATRAUMATIC, NORMAL INSPECTION, NORMOCEPHALIC - Eye Exam Eye Exam: EOMI, Normal appearance, PERRL Pupil Exam: PERRL - ENT Exam ENT Exam: Mucous Membranes Dry Additional comments: NGT - Neck Exam Neck Exam: Full ROM, Normal Inspection - Respiratory Exam Respiratory Exam: Clear to Ausculation Bilateral, NORMAL BREATHING PATTERN - Cardiovascular Exam Cardiovascular Exam: RRR, +S1, +S2 - GI/Abdominal Exam GI & Abdominal Exam: Soft, Normal Bowel Sounds. absent: Distended, Guarding, Rigid, Tenderness - Rectal Exam Rectal Exam: Deferred - Extremities Exam Extremities Exam: Normal Inspection - Back Exam Back Exam: NORMAL INSPECTION - Neurological Exam Neurological Exam: Alert, Awake - Psychiatric Exam Psychiatric exam: Flat Affect - Skin Skin Exam: Dry, Intact, Normal Color, Warm Assessment and Plan - Assessment and Plan (Free Text) Assessment: This is a 77yM with pmhx of ESRD on peritoneal dialysis, HTN / DM, CAD s/p CABG , complete HB s/p PPM presenting with lethargy and confusion. 1. 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 Dysphagia 6. ESRD 7. Hx CABG 8. Failure to thrive Plan: -Continue supportive care -Pt with no ascites on repeat US -Discussed with pt's family, they are agreeable to PEG -Also, pt is on Plavix therapy on hold as of 08/07/17, it will need to be held for 5days prior to PEG, possibly Friday -Continue TF with NGT, will hold for Friday morning for possible PEG -Speech and swallow evaluation reviewed, barium positive for aspiration -Will continue to follow closely <Mayur Irvin - Last Filed: 08/08/17 12:03> Objective - Vital Signs/Intake and Output Vital Signs (last 24 hours): Temp Pulse Resp BP Pulse Ox 98.5 F 76 20 117/73 95 08/08/17 07:00 08/08/17 07:00 08/08/17 07:00 08/08/17 07:00 08/08/17 07:00 Intake and Output: 08/08/17 08/08/17 06:59 18:59 Intake Total 805 Balance 805 - Medications Medications: Current Medications Acetaminophen (Tylenol 325mg Tab) 650 mg PO Q6 PRN PRN Reason: Fever >100.4 F Last Admin: 08/02/17 00:25 Dose: 650 mg Albuterol/Ipratropium (Duoneb 3 Mg/0.5 Mg (3 Ml) Ud) 3 ml INH RQ6 [facility] Last Admin: 08/08/17 07:27 Dose: 3 ml Artificial Tears (Artificial Tears) 0 ml OD Q3H PRN PRN Reason: Dry eyes Last Admin: 08/06/17 05:26 Dose: 1 drop Ascorbic Acid (Vitamin C 500 Mg Tab) 500 mg PO DAILY [facility] Last Admin: 06/29/18 10:23 Dose: 500 mg Calcium Acetate (Phoslo) 667 mg PO TIDCC [facility] Last Admin: 08/08/17 11:51 Dose: 667 mg Carvedilol (Coreg) 6.25 mg PO BID [facility] Last Admin: 08/08/17 10:23 Dose: 6.25 mg Clopidogrel Bisulfate (Plavix) 75 mg PO DAILY [facility] Last Admin: 08/07/17 10:28 Dose: Not Given Epoetin Kumar (Procrit) 10,000 unit IV MWF [facility] Last Admin: 08/06/17 13:09 Dose: 10,000 unit Famotidine (Pepcid) 20 mg GT BID [facility] Folic Acid (Folic Acid) 1 mg PO DAILY [facility] Last Admin: 08/08/17 10:23 Dose: 1 mg Insulin Human Regular (Novolin R) 0 unit SC Q6 [facility] PRN Reason: Protocol Last Admin: 08/08/17 11:51 Dose: 4 units Levetiracetam (Keppra) 250 mg PO BID [facility] Last Admin: 08/08/17 10:23 Dose: 250 mg Levothyroxine Sodium (Synthroid) 50 mcg PO DAILY@0630 [facility] Last Admin: 08/08/17 05:42 Dose: 50 mcg Losartan Potassium (Cozaar) 25 mg PO DAILY [facility] Last Admin: 08/08/17 10:23 Dose: 25 mg Modafinil (Provigil) 50 mg PO DAILY [facility] Last Admin: 08/08/17 10:23 Dose: 50 mg Multivitamins (Hexavitamin) 1 tab PO DAILY [facility] Last Admin: 08/08/17 10:23 Dose: 1 tab Saccharomyces Boulardii (Florastor) 250 mg PO Q12 [facility] Last Admin: 08/08/17 10:24 Dose: 250 mg Thiamine HCl (Vitamin B1 Tab) 100 mg PO DAILY [facility] Last Admin: 08/08/17 10:24 Dose: 100 mg Zinc Sulfate (Zinc Sulfate 220 Mg Cap) 220 mg PO DAILY [facility] Last Admin: 08/08/17 10:23 Dose: 220 mg - Labs Labs: 08/08/17 06:19 08/08/17 06:19 PT 10.6 SECONDS (9.7-12.2) 07/31/17 06:21 INR 1.0 07/31/17 06:21 APTT 27 SECONDS (21-34) 07/31/17 06:21 Attending/Attestation - Attestation I have personally seen and examined this patient.: Yes I have fully participated in the care of the patient.: Yes I have reviewed all pertinent clinical information, including history, physical exam and plan: Yes Notes (Text): 08/08/17 11:59 I have seen and examined patient with GI fellow. No acute events overnight. No reported abdominal pain, nausea, vomiting. Tolerating NGT feeding without difficulty. Review of vitals from today are normal. ESRD on HD DM / HTN CAD / CABG heart block s/p PPM Cirrhosis - unclear etiology CVA, dysphagia - Continue with NGT feeding as tolerated - Barium swallow reviewed by me, signs of aspiration present - Case discussed with family members in detail including risks/benefits of potential endoscopic gastrostomy placement, they are agreeable to proceed. Will tentatively schedule for friday, NPO after midnight friday. Plavix held yesterday in anticipation of likely procedure.
[2017-08-08] MEDS: Multiple Vitamins Tab PO SCH (10:23)
[2017-08-08] MEDS: Modafinil 50 MG TAB PO SCH (10:23)
[2017-08-08] MEDS: Saccharomyces Boulardi 250 mg Cap PO SCH ×2 (10:24→20:59)
--- NOTE | 2017-08-08 13:22 | CP.PCM.PN ---
Subjective - Date & Time of Evaluation Date of Evaluation: 08/08/17 Time of Evaluation: 13:19 - Subjective Subjective: same confusional state failed swallow study BP was elevated- usually well controlled for dialysis today spoke with at bedside Objective - Vital Signs/Intake and Output Vital Signs (last 24 hours): Temp Pulse Resp BP Pulse Ox 98.5 F 91 H 20 190/94 H 95 08/08/17 07:00 08/08/17 12:05 08/08/17 07:00 08/08/17 12:05 08/08/17 07:00 Intake and Output: 08/08/17 08/08/17 06:59 18:59 Intake Total 805 Balance 805 - Medications Medications: Current Medications Acetaminophen (Tylenol 325mg Tab) 650 mg PO Q6 PRN PRN Reason: Fever >100.4 F Last Admin: 08/02/17 00:25 Dose: 650 mg Albuterol/Ipratropium (Duoneb 3 Mg/0.5 Mg (3 Ml) Ud) 3 ml INH RQ6 [facility] Last Admin: 08/08/17 13:13 Dose: 3 ml Artificial Tears (Artificial Tears) 0 ml OD Q3H PRN PRN Reason: Dry eyes Last Admin: 08/06/17 05:26 Dose: 1 drop Ascorbic Acid (Vitamin C 500 Mg Tab) 500 mg PO DAILY [facility] Last Admin: 08/08/17 10:23 Dose: 500 mg Calcium Acetate (Phoslo) 667 mg PO TIDCC [facility] Last Admin: 08/08/17 11:51 Dose: 667 mg Carvedilol (Coreg) 6.25 mg PO BID [facility] Last Admin: 08/08/17 10:23 Dose: 6.25 mg Clopidogrel Bisulfate (Plavix) 75 mg PO DAILY [facility] Last Admin: 08/07/17 10:28 Dose: Not Given Epoetin Kumar (Procrit) 10,000 unit IV MWF [facility] Last Admin: 08/06/17 13:09 Dose: 10,000 unit Famotidine (Pepcid) 20 mg GT BID [facility] Folic Acid (Folic Acid) 1 mg PO DAILY [facility] Last Admin: 08/08/17 10:23 Dose: 1 mg Insulin Human Regular (Novolin R) 0 unit SC Q6 [facility] PRN Reason: Protocol Last Admin: 08/08/17 11:51 Dose: 4 units Levetiracetam (Keppra) 250 mg PO BID [facility] Last Admin: 08/08/17 10:23 Dose: 250 mg Levothyroxine Sodium (Synthroid) 50 mcg PO DAILY@0630 [facility] Last Admin: 08/08/17 05:42 Dose: 50 mcg Losartan Potassium (Cozaar) 25 mg PO DAILY [facility] Last Admin: 08/08/17 10:23 Dose: 25 mg Modafinil (Provigil) 50 mg PO DAILY [facility] Last Admin: 08/08/17 10:23 Dose: 50 mg Multivitamins (Hexavitamin) 1 tab PO DAILY [facility] Last Admin: 08/08/17 10:23 Dose: 1 tab Saccharomyces Boulardii (Florastor) 250 mg PO Q12 [facility] Last Admin: 08/08/17 10:24 Dose: 250 mg Thiamine HCl (Vitamin B1 Tab) 100 mg PO DAILY [facility] Last Admin: 08/08/17 10:24 Dose: 100 mg Zinc Sulfate (Zinc Sulfate 220 Mg Cap) 220 mg PO DAILY [facility] Last Admin: 08/08/17 10:23 Dose: 220 mg - Labs Labs: 08/08/17 06:19 08/08/17 06:19 PT 10.6 SECONDS (9.7-12.2) 07/31/17 06:21 INR 1.0 07/31/17 06:21 APTT 27 SECONDS (21-34) 07/31/17 06:21 - Constitutional Appears: No Acute Distress, Chronically Ill - Head Exam Head Exam: ATRAUMATIC, NORMAL INSPECTION - Eye Exam Eye Exam: EOMI, Normal appearance - Neck Exam Neck Exam: Normal Inspection. absent: Tenderness - Respiratory Exam Respiratory Exam: Clear to Ausculation Bilateral, NORMAL BREATHING PATTERN - Cardiovascular Exam Cardiovascular Exam: REGULAR RHYTHM, +S1 - GI/Abdominal Exam GI & Abdominal Exam: Soft. absent: Tenderness - Extremities Exam Extremities Exam: Normal Inspection. absent: Tenderness - Neurological Exam Neurological Exam: Alert, CN II-XII Intact - Skin Skin Exam: Dry, Warm Assessment and Plan (1) TIA (transient ischemic attack) Status: Acute (2) ESRD (end stage renal disease) Status: Acute (3) Heart block AV complete Status: Acute (4) Type 2 diabetes mellitus with diabetic nephropathy Status: Acute - Assessment and Plan (Free Text) Plan: dialysis MWF PEG next week placement arranged for [facility] dialysis monitor BP
[2017-08-08] MEDS: Epoetin Alfa 10,000 unit/ml Dialysis IV SCH (18:24)
[2017-08-08] MEDS: Ferric Sodium Gluconat Complex 62.5 mg/5 ml Vial IVPB SCH (18:54)
[2017-08-09] MEDS: (Novolin R) Insulin Human Regular 100 units/ml vial SC SCH ×4 (00:18→17:30)
[2017-08-09] MEDS: Albuterol-Ipratrop 3 mg / 0.5 (3 ml) UD INH SCH ×3 (01:10→19:40)
[2017-08-09] MEDS: Levothyroxine 50 MCG TAB PO SCH (05:54)
--- NOTE | 2017-08-09 06:44 | CP.PCM.PN ---
<BhavinCorakaryna Earl - Last Filed: 08/09/17 08:02> Subjective - Date & Time of Evaluation Date of Evaluation: 08/09/17 Time of Evaluation: 05:00 - Subjective Subjective: Medicine progress note ( Dr. Gibson's service) Patient was seen and examined at bedside. Patient was resting comfortably in bed in no acute distress. Patient denies any acute issues or new complaints. Objective - Vital Signs/Intake and Output Vital Signs (last 24 hours): Temp Pulse Resp BP Pulse Ox 100.0 F H 90 20 137/72 97 08/09/17 04:35 08/09/17 04:35 08/09/17 04:35 08/09/17 04:35 08/09/17 04:35 Intake and Output: 08/08/17 08/09/17 18:59 06:59 Intake Total 450 Balance 450 - Medications Medications: Current Medications Acetaminophen (Tylenol 325mg Tab) 650 mg PO Q6 PRN PRN Reason: Fever >100.4 F Last Admin: 08/02/17 00:25 Dose: 650 mg Albuterol/Ipratropium (Duoneb 3 Mg/0.5 Mg (3 Ml) Ud) 3 ml INH RQ6 [facility] Last Admin: 08/09/17 01:10 Dose: 3 ml Artificial Tears (Artificial Tears) 0 ml OD Q3H PRN PRN Reason: Dry eyes Last Admin: 08/06/17 05:26 Dose: 1 drop Ascorbic Acid (Vitamin C 500 Mg Tab) 500 mg PO DAILY [facility] Last Admin: 08/08/17 10:23 Dose: 500 mg Calcium Acetate (Phoslo) 667 mg PO TIDCC [facility] Last Admin: 08/08/17 17:14 Dose: Not Given Carvedilol (Coreg) 6.25 mg PO BID [facility] Last Admin: 08/08/17 20:58 Dose: 6.25 mg Clopidogrel Bisulfate (Plavix) 75 mg PO DAILY [facility] Last Admin: 08/07/17 10:28 Dose: Not Given Epoetin Kumar (Procrit) 10,000 unit IV MWF [facility] Last Admin: 08/08/17 18:24 Dose: 10,000 unit Famotidine (Pepcid) 20 mg GT BID [facility] Ferric Sodium Gluconate Complex (Ferrlecit) 125 mg IVPB DAILY [facility] Stop: 08/09/17 13:31 Last Admin: 08/08/17 18:54 Dose: 125 mg Folic Acid (Folic Acid) 1 mg PO DAILY [facility] Last Admin: 08/08/17 10:23 Dose: 1 mg Insulin Human Regular (Novolin R) 0 unit SC Q6 [facility] PRN Reason: Protocol Last Admin: 08/09/17 06:30 Dose: 6 units Levetiracetam (Keppra) 250 mg PO BID [facility] Last Admin: 08/08/17 20:58 Dose: 250 mg Levothyroxine Sodium (Synthroid) 50 mcg PO DAILY@0630 [facility] Last Admin: 08/09/17 05:54 Dose: 50 mcg Losartan Potassium (Cozaar) 25 mg PO DAILY [facility] Last Admin: 08/08/17 10:23 Dose: 25 mg Modafinil (Provigil) 50 mg PO DAILY [facility] Last Admin: 08/08/17 10:23 Dose: 50 mg Multivitamins (Hexavitamin) 1 tab PO DAILY [facility] Last Admin: 08/08/17 10:23 Dose: 1 tab Saccharomyces Boulardii (Florastor) 250 mg PO Q12 [facility] Last Admin: 08/08/17 20:59 Dose: 250 mg Thiamine HCl (Vitamin B1 Tab) 100 mg PO DAILY [facility] Last Admin: 08/08/17 10:24 Dose: 100 mg Zinc Sulfate (Zinc Sulfate 220 Mg Cap) 220 mg PO DAILY [facility] Last Admin: 08/08/17 10:23 Dose: 220 mg - Labs Labs: 08/08/17 06:19 08/08/17 06:19 PT 10.6 SECONDS (9.7-12.2) 07/31/17 06:21 INR 1.0 07/31/17 06:21 APTT 27 SECONDS (21-34) 07/31/17 06:21 - Constitutional Appears: No Acute Distress - Head Exam Head Exam: ATRAUMATIC - ENT Exam ENT Exam: Mucous Membranes Dry Additional comments: NGT in place - Respiratory Exam Respiratory Exam: Rales, NORMAL BREATHING PATTERN - GI/Abdominal Exam GI & Abdominal Exam: Soft, Normal Bowel Sounds. 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 Thompson/Dr. Rivera - on board - Head CT (07/13): Confluent area of low attenuation within the right frontal subcortical white matter suggestive for chronic ischemic change; Scattered areas of chronic microvascular ischemic change; Prominent ventricles; No evidence of acute intracranial hemorrhage. - Head CT (07/18): No acute intracranial hemorrhage; Moderate chronic white matter ischemic changes with chronic right superior frontal lobe infarct; Moderate generalized volume loss. - Head CT (07/21): No intracranial mass, hemorrhage or evidence of acute infarct. Right frontal encephalomalacia, possibly old MCA territory infarct. Small nonspecific right mastoid effusion. Chronic white matter ischemic change. - Head CT (07/30): No acute intracranial hemorrhage; Moderate chronic white matter ischemic changes with chronic right superior frontal lobe infarct; Moderate generalized volume loss. * Per Neurology, patient has subacute cva (prior to admission). Patient's facial palsy due to yu's palsy, not due to acute cva Status: Acute (2) Symptomatic bradycardia Assessment & Plan: s/p pace maker by Dr Valencia Status: Acute (3) Metabolic encephalopathy Assessment & Plan: - Subacute to chronic infarct on the CT head involving the right frontal lobe, the patient is unlikely to have meningoencephalitis and likely has a combination of toxic-metabolic encephalopathy and cerebral ischemia. - Not able to have MRI - due to recent PPM placement - Keppra 250mg PO BID Status: Acute (4) History of CVA (cerebrovascular accident) Assessment & Plan: - Coreg 6.25mg PO BID, Cozaar 25mg, Crestor 10mg - Held Plavix 75mg in prep for PEG tube placement Status: Acute (5) Respiratory failure Assessment & Plan: - Extubated 07/27/17 Status: Acute (6) Hypothyroidism Assessment & Plan: - Resumed Synthroid 50mcg Status: Acute (7) Type 2 diabetes mellitus with diabetic nephropathy Assessment & Plan: - Accuchecks - ISS - medium - A1C 8.4 Status: Acute (8) Cirrhosis Assessment & Plan: - Etiology unclear - Dr. Irvin consulted Status: Acute (9) ESRD (end stage renal disease) Assessment & Plan: with new L AVF, Right Permacath (MWF) - Previously on peritoneal dialysis, removed PD catheter 07/31 - S/P AVF, Right Permacath 07/31 - Continue procrit 10,000 units IV mwf and phoslo 667mg PO TIDCC - Hemodialysis as per nephrology team Status: Acute (10) Anemia in chronic kidney disease Assessment & Plan: - Continue with Procrit S/P transfused 1 unit PRBC 07/23, transfused 1 unit - during dialysis - Ferrlecit daily x 1 week -procrit 10,000 units IV mwf - Stool occult- negative Status: Acute (11) Prophylactic measure Assessment & Plan: - Pepcid 03/14 to steroids - Heparin during HD - Held Plavix 75mg in prep for possible PEG tube on 08/11/17 All plans and management discussed with Dr. Gibson Status: Acute <Glen Gibson H - Last Filed: 08/09/17 10:42> Objective - Vital Signs/Intake and Output Vital Signs (last 24 hours): Temp Pulse Resp BP Pulse Ox 98.8 F 86 20 123/70 98 08/09/17 08:16 08/09/17 08:16 08/09/17 08:16 08/09/17 08:16 08/09/17 08:16 Intake and Output: 08/09/17 08/09/17 06:59 18:59 Intake Total 450 Balance 450 - Medications Medications: Current Medications Acetaminophen (Tylenol 325mg Tab) 650 mg PO Q6 PRN PRN Reason: Fever >100.4 F Last Admin: 08/02/17 00:25 Dose: 650 mg Artificial Tears (Artificial Tears) 0 ml OD Q3H PRN PRN Reason: Dry eyes Last Admin: 08/06/17 05:26 Dose: 1 drop Ascorbic Acid (Vitamin C 500 Mg Tab) 500 mg PO DAILY [facility] Last Admin: 08/09/17 09:45 Dose: 500 mg Calcium Acetate (Phoslo) 667 mg PO TIDCC [facility] Last Admin: 08/09/17 09:44 Dose: 667 mg Carvedilol (Coreg) 6.25 mg PO BID [facility] Last Admin: 08/09/17 09:44 Dose: 6.25 mg Clopidogrel Bisulfate (Plavix) 75 mg PO DAILY [facility] Last Admin: 08/07/17 10:28 Dose: Not Given Epoetin Kumar (Procrit) 10,000 unit IV MWF [facility] Last Admin: 08/08/17 18:24 Dose: 10,000 unit Famotidine (Pepcid) 20 mg GT BID [facility] Last Admin: 08/09/17 09:48 Dose: 20 mg Ferric Sodium Gluconate Complex (Ferrlecit) 125 mg IVPB DAILY [facility] Stop: 08/09/17 13:31 Last Admin: 08/09/17 09:45 Dose: 125 mg Folic Acid (Folic Acid) 1 mg PO DAILY [facility] Last Admin: 08/09/17 09:43 Dose: 1 mg Insulin Human Regular (Novolin R) 0 unit SC Q6 [facility] PRN Reason: Protocol Last Admin: 08/09/17 06:30 Dose: 6 units Levetiracetam (Keppra) 250 mg PO BID [facility] Last Admin: 08/09/17 09:43 Dose: 250 mg Levothyroxine Sodium (Synthroid) 50 mcg PO DAILY@30 [facility] Last Admin: 08/09/17 05:54 Dose: 50 mcg Losartan Potassium (Cozaar) 25 mg PO DAILY [facility] Last Admin: 08/09/17 09:45 Dose: 25 mg Modafinil (Provigil) 50 mg PO DAILY [facility] Last Admin: 08/08/17 10:23 Dose: 50 mg Multivitamins (Hexavitamin) 1 tab PO DAILY [facility] Last Admin: 08/09/17 09:43 Dose: 1 tab Saccharomyces Boulardii (Florastor) 250 mg PO Q12 [facility] Last Admin: 08/09/17 09:45 Dose: 250 mg Thiamine HCl (Vitamin B1 Tab) 100 mg PO DAILY [facility] Last Admin: 08/09/17 09:48 Dose: 100 mg Zinc Sulfate (Zinc Sulfate 220 Mg Cap) 220 mg PO DAILY [facility] Last Admin: 08/09/17 09:45 Dose: 220 mg - Labs Labs: 08/09/17 06:36 08/09/17 06:36 PT 10.6 SECONDS (9.7-12.2) 07/31/17 06:21 INR 1.0 07/31/17 06:21 APTT 27 SECONDS (21-34) 07/31/17 06:21 Attending/Attestation - Attestation I have personally seen and examined this patient.: Yes I have fully participated in the care of the patient.: Yes I have reviewed all pertinent clinical information, including history, physical exam and plan: Yes Notes (Text): 08/09/17 10:39 Medical Attending: Patient was seen and examined by me. Agree with the above note by the resident The patient was more somnolent today but he did wake up and follow commands. He was not speaking this morning other than very simple yes or no to questions. On exam he had some rhales on auscultation. He is alos coughing as well. Overnight had low grade fever. So will hold the NGT feeds for 24 hrs, check a CXRAY, repeat blood culture. Glen Gibson
[2017-08-09 06:53] LABS: BASO # 0.1 K/uL (0.0-0.2); BASO % 0.7 % (0.0-2.0); EOS # 0.3 K/uL (0.0-0.7); EOS % 3.6 % (0.0-4.0); HEMOGLOBIN 9.1 g/dL (12.0-18.0); LYMPH % 10.2 % (20.0-40.0); MEAN CELL VOLUME 97.7 fL (80.0-94.0); MEAN CORPUSCULAR HGB CONC 33.8 g/dL (33.0-37.0); MEAN PLATELET VOLUME 8.8 fL (7.2-11.7); MONO # 1.3 K/uL (0.0-0.8); MONO % 13.7 % (0.0-10.0); NEUT # 6.8 K/uL (1.8-7.0); NEUT % 71.8 % (50.0-75.0); NRBC % 0.1 % (0.0-2.0); RBC 2.77 Mil/uL (4.40-5.90); RED CELL DISTRIBUTION WIDTH 21.6 % (11.5-14.5); WHITE BLOOD COUNT 9.4 K/uL (4.8-10.8)
[2017-08-09 07:14] LABS: ALB/GLOB RATIO 0.9 (1.0-2.1); ALBUMIN 2.9 g/dL (3.5-5.0); CALCIUM 8.5 mg/dl (8.6-10.4)
[2017-08-09] MEDS: Multiple Vitamins Tab PO SCH (09:43)
[2017-08-09] MEDS: Ferric Sodium Gluconat Complex 62.5 mg/5 ml Vial IVPB SCH (09:45)
[2017-08-09] MEDS: Saccharomyces Boulardi 250 mg Cap PO SCH ×2 (09:45→22:06)
--- NOTE | 2017-08-09 09:48 | CP.PCM.PN ---
Subjective - Date & Time of Evaluation Date of Evaluation: 08/09/17 Time of Evaluation: 09:45 - Subjective Subjective: NGT in in mitten restraints unable to obtain ROS due to clinical condition Objective - Vital Signs/Intake and Output Vital Signs (last 24 hours): Temp Pulse Resp BP Pulse Ox 98.8 F 86 20 123/70 98 08/09/17 08:16 08/09/17 08:16 08/09/17 08:16 08/09/17 08:16 08/09/17 08:16 Intake and Output: 08/09/17 08/09/17 06:59 18:59 Intake Total 450 Balance 450 - Medications Medications: Current Medications Acetaminophen (Tylenol 325mg Tab) 650 mg PO Q6 PRN PRN Reason: Fever >100.4 F Last Admin: 08/02/17 00:25 Dose: 650 mg Artificial Tears (Artificial Tears) 0 ml OD Q3H PRN PRN Reason: Dry eyes Last Admin: 08/06/17 05:26 Dose: 1 drop Ascorbic Acid (Vitamin C 500 Mg Tab) 500 mg PO DAILY [facility] Last Admin: 08/08/17 10:23 Dose: 500 mg Calcium Acetate (Phoslo) 667 mg PO TIDCC [facility] Last Admin: 08/09/17 09:44 Dose: 667 mg Carvedilol (Coreg) 6.25 mg PO BID [facility] Last Admin: 08/08/17 20:58 Dose: 6.25 mg Clopidogrel Bisulfate (Plavix) 75 mg PO DAILY [facility] Last Admin: 08/07/17 10:28 Dose: Not Given Epoetin Kumar (Procrit) 10,000 unit IV MWF [facility] Last Admin: 08/08/17 18:24 Dose: 10,000 unit Famotidine (Pepcid) 20 mg GT BID [facility] Ferric Sodium Gluconate Complex (Ferrlecit) 125 mg IVPB DAILY [facility] Stop: 08/09/17 13:31 Last Admin: 08/08/17 18:54 Dose: 125 mg Folic Acid (Folic Acid) 1 mg PO DAILY [facility] Last Admin: 08/09/17 09:43 Dose: 1 mg Insulin Human Regular (Novolin R) 0 unit SC Q6 [facility] PRN Reason: Protocol Last Admin: 08/09/17 06:30 Dose: 6 units Levetiracetam (Keppra) 250 mg PO BID [facility] Last Admin: 08/09/17 09:43 Dose: 250 mg Levothyroxine Sodium (Synthroid) 50 mcg PO DAILY@0630 [facility] Last Admin: 08/09/17 05:54 Dose: 50 mcg Losartan Potassium (Cozaar) 25 mg PO DAILY [facility] Last Admin: 08/08/17 10:23 Dose: 25 mg Modafinil (Provigil) 50 mg PO DAILY [facility] Last Admin: 08/08/17 10:23 Dose: 50 mg Multivitamins (Hexavitamin) 1 tab PO DAILY [facility] Last Admin: 08/09/17 09:43 Dose: 1 tab Saccharomyces Boulardii (Florastor) 250 mg PO Q12 [facility] Last Admin: 08/08/17 20:59 Dose: 250 mg Thiamine HCl (Vitamin B1 Tab) 100 mg PO DAILY [facility] Last Admin: 08/08/17 10:24 Dose: 100 mg Zinc Sulfate (Zinc Sulfate 220 Mg Cap) 220 mg PO DAILY [facility] Last Admin: 08/08/17 10:23 Dose: 220 mg - Labs Labs: 08/09/17 06:36 08/09/17 06:36 PT 10.6 SECONDS (9.7-12.2) 07/31/17 06:21 INR 1.0 07/31/17 06:21 APTT 27 SECONDS (21-34) 07/31/17 06:21 - Constitutional Appears: Chronically Ill - Head Exam Head Exam: ATRAUMATIC - Eye Exam Eye Exam: EOMI Additional comments: right eye with patch - Neck Exam Neck Exam: Full ROM. absent: Lymphadenopathy - Respiratory Exam Respiratory Exam: Clear to Ausculation Bilateral. absent: Accessory Muscle Use - Cardiovascular Exam Cardiovascular Exam: REGULAR RHYTHM. absent: Rubs - GI/Abdominal Exam GI & Abdominal Exam: Soft. absent: Tenderness - Extremities Exam Extremities Exam: absent: Pedal Edema - Neurological Exam Neurological Exam: absent: Oriented x3 Assessment and Plan - Assessment and Plan (Free Text) Plan: esrd cva hollingsworth's palsy diabetes await NG tube maint HD continue supportive care
[2017-08-09] MEDS ORDERED: Ferric Sodium Gluconat Complex 62.5 mg/5 ml Vial IVPB SCH (10:00)
--- NOTE | 2017-08-09 11:34 | RAD ---
HISTORY: Cough; shortness of breath COMPARISON: Comparison chest 08/04/2017 FINDINGS: In situ NGT, the tip of which has not been included on this film though distal aspect does lie well below EG junction. In situ right IJ dialysis catheter with tips in the SVC/RA junction. LUNGS: Pulmonary vascular congestive changes with bilateral lower lobe alveolar-type infiltrates and bilateral effusions. PLEURA: No significant pleural effusion identified, no pneumothorax apparent. CARDIOVASCULAR: No change bipolar pacemaker defibrillator. Sternotomy wires. Cardiomegaly. OSSEOUS STRUCTURES: . The No significant abnormalities. VISUALIZED UPPER ABDOMEN: Normal. OTHER FINDINGS: None. IMPRESSION: NGT and right subclavian dialysis catheter as above. . Pulmonary vascular congestive changes with bilateral lower lobe alveolar-type infiltrates and bilateral effusions.
[2017-08-09] MEDS: Modafinil 50 MG TAB PO SCH ×2 (13:32→13:37)
[2017-08-09] MEDS: Piperacillin/Tazobact 3.375 GM in Sodium Chloride 100 ML IVPB SCH ×2 (14:19→22:07)
[2017-08-10] MEDS: (Novolin R) Insulin Human Regular 100 units/ml vial SC SCH ×5 (00:31→23:41)
[2017-08-10] MEDS: Albuterol-Ipratrop 3 mg / 0.5 (3 ml) UD INH SCH ×6 (04:52→23:39)
[2017-08-10] MEDS: Piperacillin/Tazobact 3.375 GM in Sodium Chloride 100 ML IVPB SCH ×3 (05:24→21:16)
--- NOTE | 2017-08-10 05:29 | CP.PCM.PN ---
<BhavinCorakaryna Earl - Last Filed: 08/10/17 05:27> Subjective - Date & Time of Evaluation Date of Evaluation: 08/10/17 Time of Evaluation: 05:00 - Subjective Subjective: Medicine progress note ( Dr. Gibson's service-Covering for Dr. Elizabeth's service ) Patient was seen and examined at bedside. Patient was resting comfortably in bed in no acute distress. As per nursing, patient had no acute issues overnight. Unable to evaluate adequate ROS due to patient's condition and somnolence. Objective - Vital Signs/Intake and Output Vital Signs (last 24 hours): Temp Pulse Resp BP Pulse Ox 98.7 F 72 20 131/62 97 08/10/17 04:30 08/10/17 04:30 08/10/17 04:30 08/10/17 04:30 08/10/17 04:30 - Medications Medications: Current Medications Acetaminophen (Tylenol 325mg Tab) 650 mg PO Q6 PRN PRN Reason: Fever >100.4 F Last Admin: 08/02/17 00:25 Dose: 650 mg Albuterol/Ipratropium (Duoneb 3 Mg/0.5 Mg (3 Ml) Ud) 3 ml INH RQ6 [facility] Last Admin: 08/10/17 04:52 Dose: Not Given Artificial Tears (Artificial Tears) 0 ml OD Q3H PRN PRN Reason: Dry eyes Last Admin: 08/06/17 05:26 Dose: 1 drop Ascorbic Acid (Vitamin C 500 Mg Tab) 500 mg PO DAILY [facility] Last Admin: 08/09/17 09:45 Dose: 500 mg Calcium Acetate (Phoslo) 667 mg PO TIDCC [facility] Last Admin: 08/09/17 17:39 Dose: 667 mg Carvedilol (Coreg) 6.25 mg PO BID [facility] Last Admin: 08/09/17 17:38 Dose: 6.25 mg Clopidogrel Bisulfate (Plavix) 75 mg PO DAILY [facility] Last Admin: 08/07/17 10:28 Dose: Not Given Epoetin Kumar (Procrit) 10,000 unit IV MWF [facility] Last Admin: 08/08/17 18:24 Dose: 10,000 unit Famotidine (Pepcid) 20 mg GT BID [facility] Last Admin: 08/09/17 17:38 Dose: 20 mg Folic Acid (Folic Acid) 1 mg PO DAILY [facility] Last Admin: 08/09/17 09:43 Dose: 1 mg Piperacillin Sod/Tazobactam (Sod 3.375 gm/ Sodium Chloride) 100 mls @ 200 mls/ hr IVPB Q8H [facility] PRN Reason: Protocol Last Admin: 08/10/17 05:24 Dose: 200 mls/hr Insulin Human Regular (Novolin R) 0 unit SC Q6 [facility] PRN Reason: Protocol Last Admin: 08/10/17 00:31 Dose: Not Given Levetiracetam (Keppra) 250 mg PO BID [facility] Last Admin: 08/09/17 17:38 Dose: 250 mg Levothyroxine Sodium (Synthroid) 50 mcg PO DAILY@30 [facility] Last Admin: 08/09/17 05:54 Dose: 50 mcg Modafinil (Provigil) 50 mg PO DAILY [facility] Last Admin: 08/09/17 13:37 Dose: 50 mg Multivitamins (Hexavitamin) 1 tab PO DAILY [facility] Last Admin: 08/09/17 09:43 Dose: 1 tab Saccharomyces Boulardii (Florastor) 250 mg PO Q12 [facility] Last Admin: 08/09/17 22:06 Dose: 250 mg Thiamine HCl (Vitamin B1 Tab) 100 mg PO DAILY [facility] Last Admin: 08/09/17 09:48 Dose: 100 mg Zinc Sulfate (Zinc Sulfate 220 Mg Cap) 220 mg PO DAILY [facility] Last Admin: 08/09/17 09:45 Dose: 220 mg - Labs Labs: 08/09/17 06:36 08/09/17 06:36 PT 10.6 SECONDS (9.7-12.2) 07/31/17 06:21 INR 1.0 07/31/17 06:21 APTT 27 SECONDS (21-34) 07/31/17 06:21 - Constitutional Appears: No Acute Distress - Eye Exam Eye Exam: EOMI - ENT Exam ENT Exam: Mucous Membranes Dry Additional comments: NGT in place Feeds on hold for 24 hours due to possible aspiration pneumonia - Respiratory Exam Respiratory Exam: Rales, NORMAL BREATHING PATTERN - Cardiovascular Exam Cardiovascular Exam: REGULAR RHYTHM, +S1, +S2 - GI/Abdominal Exam GI & Abdominal Exam: Soft, Normal Bowel Sounds. absent: Tenderness - Extremities Exam Extremities Exam: Normal Inspection. 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 Thompson/Dr. Rivera - on board - Head CT (07/13): Confluent area of low attenuation within the right frontal subcortical white matter suggestive for chronic ischemic change; Scattered areas of chronic microvascular ischemic change; Prominent ventricles; No evidence of acute intracranial hemorrhage. - Head CT (07/18): No acute intracranial hemorrhage; Moderate chronic white matter ischemic changes with chronic right superior frontal lobe infarct; Moderate generalized volume loss. - Head CT (07/21): No intracranial mass, hemorrhage or evidence of acute infarct. Right frontal encephalomalacia, possibly old MCA territory infarct. Small nonspecific right mastoid effusion. Chronic white matter ischemic change. - Head CT (07/30): No acute intracranial hemorrhage; Moderate chronic white matter ischemic changes with chronic right superior frontal lobe infarct; Moderate generalized volume loss. * Per Neurology, patient has subacute cva (prior to admission). Patient's facial palsy due to yu's palsy, not due to acute cva Status: Acute (2) Symptomatic bradycardia Assessment & Plan: s/p pace maker by Dr Valencia Status: Acute (3) Metabolic encephalopathy Assessment & Plan: - Subacute to chronic infarct on the CT head involving the right frontal lobe, the patient is unlikely to have meningoencephalitis and likely has a combination of toxic-metabolic encephalopathy and cerebral ischemia. - Not able to have MRI - due to recent PPM placement - Keppra 250mg PO BID Status: Acute (4) History of CVA (cerebrovascular accident) Assessment & Plan: - Coreg 6.25mg PO BID, Cozaar 25mg, Crestor 10mg - Held Plavix 75mg in prep for PEG tube placement Status: Acute (5) Respiratory failure Assessment & Plan: - Extubated 07/27/17 Status: Acute (6) Hypothyroidism Assessment & Plan: - Resumed Synthroid 50mcg Status: Acute (7) Type 2 diabetes mellitus with diabetic nephropathy Assessment & Plan: -HgbA1C 8.4 - Accuchecks - ISS - medium dose Status: Acute (8) Cirrhosis Assessment & Plan: - Etiology unclear - Dr. Irvin consulted Status: Acute (9) ESRD (end stage renal disease) Assessment & Plan: with new L AVF, Right Permacath (MWF) - Previously on peritoneal dialysis, removed PD catheter 07/31 - S/P AVF, Right Permacath 07/31 - Continue procrit 10,000 units IV mwf and phoslo 667mg PO TIDCC - Hemodialysis as per nephrology team Status: Acute (10) Anemia in chronic kidney disease Assessment & Plan: - Continue with Procrit S/P transfused 1 unit PRBC 07/23, transfused 1 unit - during dialysis - Ferrlecit daily x 1 week -procrit 10,000 units IV mwf - Stool occult- negative Status: Acute (11) Fever Assessment & Plan: Low grade fever at 100.0 No Leukocytosis 2/2 to aspiration pneumonia from NGT feedings Chest X-ray (08/09/17): NGT and right subclavian dialysis catheter as above. Pulmonary vascular congestive changes with bilateral lower lobe alveolar-type infiltrates and bilateral effusions. F/u blood culture Aspiration precautions Zosyn 3.375gm IV Q8H ( Started 08/09/17) Status: Acute (12) Prophylactic measure Assessment & Plan: - Pepcid 2/2 to steroids - Heparin during HD - Held Plavix 75mg in prep for possible PEG tube on 08/11/17 All plans and management discussed with Dr. Gibson Status: Acute <Glen Gibson - Last Filed: 08/10/17 11:04> Objective - Vital Signs/Intake and Output Vital Signs (last 24 hours): Temp Pulse Resp BP Pulse Ox 98.7 F 80 20 131/62 97 08/10/17 04:30 08/10/17 07:40 08/10/17 04:30 08/10/17 04:30 08/10/17 04:30 Intake and Output: 08/10/17 08/10/17 06:59 18:59 Intake Total 100 Balance 100 - Medications Medications: Current Medications Acetaminophen (Tylenol 325mg Tab) 650 mg PO Q6 PRN PRN Reason: Fever >100.4 F Last Admin: 08/02/17 00:25 Dose: 650 mg Albuterol/Ipratropium (Duoneb 3 Mg/0.5 Mg (3 Ml) Ud) 3 ml INH RQ6 [facility] Last Admin: 08/10/17 08:20 Dose: 3 ml Artificial Tears (Artificial Tears) 0 ml OD Q3H PRN PRN Reason: Dry eyes Last Admin: 08/06/17 05:26 Dose: 1 drop Ascorbic Acid (Vitamin C 500 Mg Tab) 500 mg PO DAILY [facility] Last Admin: 08/10/17 09:15 Dose: 500 mg Calcium Acetate (Phoslo) 667 mg PO TIDCC [facility] Last Admin: 08/10/17 09:14 Dose: 667 mg Carvedilol (Coreg) 6.25 mg PO BID [facility] Last Admin: 08/10/17 09:15 Dose: 6.25 mg Clopidogrel Bisulfate (Plavix) 75 mg PO DAILY [facility] Last Admin: 08/07/17 10:28 Dose: Not Given Epoetin Kumar (Procrit) 10,000 unit IV MWF [facility] Last Admin: 08/08/17 18:24 Dose: 10,000 unit Famotidine (Pepcid) 20 mg GT BID [facility] Last Admin: 08/10/17 09:12 Dose: 20 mg Folic Acid (Folic Acid) 1 mg PO DAILY [facility] Last Admin: 08/10/17 09:15 Dose: 1 mg Piperacillin Sod/Tazobactam (Sod 3.375 gm/ Sodium Chloride) 100 mls @ 200 mls/ hr IVPB Q8H [facility] PRN Reason: Protocol Last Admin: 08/10/17 05:24 Dose: 200 mls/hr Sodium Chloride (Sodium Chloride 0.45%) 1,000 mls @ 100 mls/hr IV .Q10H [facility] Insulin Human Regular (Novolin R) 0 unit SC Q6 [facility] PRN Reason: Protocol Last Admin: 08/10/17 07:01 Dose: Not Given Levetiracetam (Keppra) 250 mg PO BID [facility] Last Admin: 08/10/17 09:15 Dose: 250 mg Levothyroxine Sodium (Synthroid) 50 mcg PO DAILY@0630 [facility] Last Admin: 08/10/17 06:04 Dose: 50 mcg Modafinil (Provigil) 50 mg PO DAILY [facility] Last Admin: 08/10/17 09:12 Dose: 50 mg Multivitamins (Hexavitamin) 1 tab PO DAILY [facility] Last Admin: 08/10/17 09:15 Dose: 1 tab Saccharomyces Boulardii (Florastor) 250 mg PO Q12 [facility] Last Admin: 08/10/17 09:15 Dose: 250 mg Thiamine HCl (Vitamin B1 Tab) 100 mg PO DAILY [facility] Last Admin: 08/10/17 09:15 Dose: 100 mg Zinc Sulfate (Zinc Sulfate 220 Mg Cap) 220 mg PO DAILY [facility] Last Admin: 08/10/17 09:13 Dose: 220 mg - Labs Labs: 08/10/17 07:43 08/10/17 07:43 PT 10.6 SECONDS (9.7-12.2) 07/31/17 06:21 INR 1.0 07/31/17 06:21 APTT 27 SECONDS (21-34) 07/31/17 06:21 Attending/Attestation - Attestation I have personally seen and examined this patient.: Yes I have fully participated in the care of the patient.: Yes I have reviewed all pertinent clinical information, including history, physical exam and plan: Yes Notes (Text): 08/10/17 11:00 Medical attending: Patient was seen and examined by me. Agree with the above note by the resident He has been getting HD without problems. As mentioned yesterday we held the NGT feeds. Conintue with IVF. The CXRAY is suggesting possible infiltrates now seen. He was started on IVABX. PEG tube pending this comming week, plavix was held. He has been afebrile. Today he was leathergic and difficult to arounse. Will check ABG and repeat head CT When I saw and examined him this morning he was sleeping. He was arousable and was able to respond with commands promps from family members at bedside. Family has faithfully been at bedside. thank you Glen Gibson
[2017-08-10] MEDS: Levothyroxine 50 MCG TAB PO SCH (06:04)
[2017-08-10 07:51] LABS: BASO # 0.1 K/uL (0.0-0.2); BASO % 0.9 % (0.0-2.0); EOS # 0.4 K/uL (0.0-0.7); EOS % 4.1 % (0.0-4.0); HEMOGLOBIN 9.1 g/dL (12.0-18.0); LYMPH # 1.2 K/uL (1.0-4.3); LYMPH % 12.1 % (20.0-40.0); MEAN CELL VOLUME 97.8 fL (80.0-94.0); MEAN CORPUSCULAR HEMOGLOBIN 32.4 pg (27.0-31.0); MEAN CORPUSCULAR HGB CONC 33.1 g/dL (33.0-37.0); MEAN PLATELET VOLUME 8.3 fL (7.2-11.7); MONO # 1.5 K/uL (0.0-0.8); MONO % 14.8 % (0.0-10.0); NEUT # 6.9 K/uL (1.8-7.0); NEUT % 68.1 % (50.0-75.0); NRBC % 0.1 % (0.0-2.0); RBC 2.82 Mil/uL (4.40-5.90); RED CELL DISTRIBUTION WIDTH 21.5 % (11.5-14.5); WHITE BLOOD COUNT 10.2 K/uL (4.8-10.8)
[2017-08-10 08:19] LABS: ALB/GLOB RATIO 0.9 (1.0-2.1); ALBUMIN 2.9 g/dL (3.5-5.0); CALCIUM 8.6 mg/dl (8.6-10.4)
[2017-08-10] MEDS: Modafinil 50 MG TAB PO SCH (09:12)
[2017-08-10] MEDS: Saccharomyces Boulardi 250 mg Cap PO SCH ×2 (09:15→21:16)
[2017-08-10] MEDS: Multiple Vitamins Tab PO SCH (09:15)
[2017-08-10] MEDS: Sodium Chloride 0.45% 1,000 ML IV SCH (11:18)
[2017-08-10 11:26] LABS: INR 1.1
[2017-08-10 12:13] LABS: ARTERIAL BLOOD GAS HCO3 29.5 mmol/L (21-28); ARTERIAL BLOOD GAS HEMOGLOBIN 8.7 g/dL (11.7-17.4); ARTERIAL BLOOD GAS PCO2 39 mm/Hg (35-45); ARTERIAL BLOOD GAS PH 7.49 (7.35-7.45); ARTERIAL BLOOD GAS PO2 88 mm/Hg (80-100); ARTERIAL BLOOD GAS TCO2 30.9 mmol/L (22-28)
--- NOTE | 2017-08-10 13:47 | CT ---
PROCEDURE: CT HEAD WITHOUT CONTRAST. HISTORY: Altered mental status COMPARISON: Comparison made with CT scan brain 07/30/2017. TECHNIQUE: Axial computed tomography images were obtained through the head/brain without intravenous contrast. Radiation dose: Total exam DLP = 967.82 mGy-cm. This CT exam was performed using one or more of the following dose reduction techniques: Automated exposure control, adjustment of the mA and/or kV according to patient size, and/or use of iterative reconstruction technique. FINDINGS: HEMORRHAGE: No acute parenchymal, subarachnoid nor extra-axial hemorrhage. 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 Note that the possibility of a small hyperacute infarct cannot be excluded. . No obvious parenchymal nor extra-axial mass or collection seen on this noncontrast study. Moderate generalized volume loss. Vascular calcifications both carotid siphons and vertebral arteries again noted. VENTRICLES: Unremarkable. No hydrocephalus. CALVARIUM: Unremarkable. PARANASAL SINUSES: Unremarkable as visualized. No significant inflammatory changes. MASTOID AIR CELLS: Unremarkable as visualized. No inflammatory changes. OTHER FINDINGS: Changes of bilateral cataract surgery again noted. 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 Note that the possibility of a small hyperacute infarct cannot be excluded. . No obvious parenchymal nor extra-axial mass or collection seen on this noncontrast study. Moderate generalized volume loss. Vascular calcifications both carotid siphons and vertebral arteries again noted.
--- NOTE | 2017-08-10 14:59 | CP.PCM.PN ---
Subjective - Date & Time of Evaluation Date of Evaluation: 08/10/17 Time of Evaluation: 14:57 - Subjective Subjective: Patient's son is at bedside. Patient is awake but sleepy. Responding to deep stimulus. NG tube noted. Not in any distress. On examination: Vital signs reviewed Medications reviewed Chest good air entry bilaterally. Regular heart sound. Abdominal tenderness negative I spoke to the covering doctor, discussed about the patient prognosis. Patient will be getting possibly PEG tube tomorrow. Metabolic encephalopathy, still no improvement. Hypertension. End-stage renal disease on hemodialysis. We'll continue the current treatment. Will discuss with the family about the discharge plan after the PEG tube Objective - Vital Signs/Intake and Output Vital Signs (last 24 hours): Temp Pulse Resp BP Pulse Ox 98.7 F 80 20 131/62 97 08/10/17 04:30 08/10/17 07:40 08/10/17 04:30 08/10/17 04:30 08/10/17 04:30 Intake and Output: 08/10/17 08/10/17 06:59 18:59 Intake Total 100 Balance 100 - Medications Medications: Current Medications Acetaminophen (Tylenol 325mg Tab) 650 mg PO Q6 PRN PRN Reason: Fever >100.4 F Last Admin: 08/02/17 00:25 Dose: 650 mg Albuterol/Ipratropium (Duoneb 3 Mg/0.5 Mg (3 Ml) Ud) 3 ml INH RQ4 [facility] Last Admin: 08/10/17 13:00 Dose: 3 ml Artificial Tears (Artificial Tears) 0 ml OD Q3H PRN PRN Reason: Dry eyes Last Admin: 08/06/17 05:26 Dose: 1 drop Ascorbic Acid (Vitamin C 500 Mg Tab) 500 mg PO DAILY [facility] Last Admin: 08/10/17 09:15 Dose: 500 mg Calcium Acetate (Phoslo) 667 mg PO TIDCC [facility] Last Admin: 08/10/17 12:29 Dose: 667 mg Carvedilol (Coreg) 6.25 mg PO BID [facility] Last Admin: 08/10/17 09:15 Dose: 6.25 mg Clopidogrel Bisulfate (Plavix) 75 mg PO DAILY [facility] Last Admin: 08/07/17 10:28 Dose: Not Given Epoetin Kumar (Procrit) 10,000 unit IV MWF [facility] Last Admin: 08/08/17 18:24 Dose: 10,000 unit Famotidine (Pepcid) 20 mg GT BID [facility] Last Admin: 08/10/17 09:12 Dose: 20 mg Folic Acid (Folic Acid) 1 mg PO DAILY [facility] Last Admin: 08/10/17 09:15 Dose: 1 mg Piperacillin Sod/Tazobactam (Sod 3.375 gm/ Sodium Chloride) 100 mls @ 200 mls/ hr IVPB Q8H [facility] PRN Reason: Protocol Last Admin: 08/10/17 13:45 Dose: 200 mls/hr Sodium Chloride (Sodium Chloride 0.45%) 1,000 mls @ 100 mls/hr IV .Q10H [facility] Last Admin: 08/10/17 11:18 Dose: 100 mls/hr Insulin Human Regular (Novolin R) 0 unit SC Q6 [facility] PRN Reason: Protocol Last Admin: 08/10/17 12:18 Dose: Not Given Levetiracetam (Keppra) 250 mg PO BID [facility] Last Admin: 08/10/17 09:15 Dose: 250 mg Levothyroxine Sodium (Synthroid) 50 mcg PO DAILY@0630 [facility] Last Admin: 08/10/17 06:04 Dose: 50 mcg Modafinil (Provigil) 50 mg PO DAILY [facility] Last Admin: 08/10/17 09:12 Dose: 50 mg Multivitamins (Hexavitamin) 1 tab PO DAILY [facility] Last Admin: 08/10/17 09:15 Dose: 1 tab Saccharomyces Boulardii (Florastor) 250 mg PO Q12 [facility] Last Admin: 08/10/17 09:15 Dose: 250 mg Thiamine HCl (Vitamin B1 Tab) 100 mg PO DAILY [facility] Last Admin: 08/10/17 09:15 Dose: 100 mg Zinc Sulfate (Zinc Sulfate 220 Mg Cap) 220 mg PO DAILY [facility] Last Admin: 08/10/17 09:13 Dose: 220 mg - Labs Labs: 08/10/17 07:43 08/10/17 07:43 PT 12.0 SECONDS (9.7-12.2) 08/10/17 11:16 INR 1.1 08/10/17 11:16 APTT 27 SECONDS (21-34) 07/31/17 06:21
[2017-08-11] MEDS: Sodium Chloride 0.45% 1,000 ML IV SCH ×3 (01:25→21:10)
[2017-08-11] MEDS: Albuterol-Ipratrop 3 mg / 0.5 (3 ml) UD INH SCH ×5 (03:23→19:39)
[2017-08-11] MEDS: Piperacillin/Tazobact 3.375 GM in Sodium Chloride 100 ML IVPB SCH ×3 (05:42→21:07)
[2017-08-11] MEDS: Levothyroxine 50 MCG TAB PO SCH (05:43)
[2017-08-11] MEDS: (Novolin R) Insulin Human Regular 100 units/ml vial SC SCH ×3 (06:36→18:27)
[2017-08-11 07:25] LABS: BASO # 0.1 K/uL (0.0-0.2); BASO % 0.9 % (0.0-2.0); EOS # 0.4 K/uL (0.0-0.7); EOS % 4.8 % (0.0-4.0); LYMPH # 0.9 K/uL (1.0-4.3); MEAN CELL VOLUME 96.8 fL (80.0-94.0); MEAN CORPUSCULAR HEMOGLOBIN 32.5 pg (27.0-31.0); MEAN CORPUSCULAR HGB CONC 33.6 g/dL (33.0-37.0); MEAN PLATELET VOLUME 8.4 fL (7.2-11.7); MONO # 1.2 K/uL (0.0-0.8); MONO % 12.6 % (0.0-10.0); NEUT # 6.6 K/uL (1.8-7.0); NEUT % 71.7 % (50.0-75.0); RBC 2.77 Mil/uL (4.40-5.90); RED CELL DISTRIBUTION WIDTH 21.3 % (11.5-14.5); WHITE BLOOD COUNT 9.2 K/uL (4.8-10.8)
[2017-08-11 07:53] LABS: ALB/GLOB RATIO 0.9 (1.0-2.1); ALBUMIN 2.9 g/dL (3.5-5.0); CALCIUM 8.7 mg/dl (8.6-10.4)
[2017-08-11] MEDS ORDERED: Propofol 10 mg/ml Inj (20 ML) ONE (07:53)
[2017-08-11] MEDS ORDERED: Etomidate 20 mg/10ml Inj IV ONE (07:53)
[2017-08-11] MEDS ORDERED: Lactated Ringer's 1,000 ML IV ONE (08:04)
[2017-08-11] MEDS: Multiple Vitamins Tab PO SCH (11:30)
[2017-08-11] MEDS: Saccharomyces Boulardi 250 mg Cap PO SCH ×2 (11:30→21:08)
--- NOTE | 2017-08-11 12:13 | CP.PCM.PN ---
Subjective - Date & Time of Evaluation Date of Evaluation: 08/11/17 Time of Evaluation: 12:11 - Subjective Subjective: stable dialysis course- MWF HTN still elevated s/p PEG- await feeds has been more alert according to family- though lethargic now no other new events or complaints Objective - Vital Signs/Intake and Output Vital Signs (last 24 hours): Temp Pulse Resp BP Pulse Ox 97.9 F 64 20 163/67 H 98 08/11/17 09:23 08/11/17 09:23 08/11/17 09:23 08/11/17 09:23 08/11/17 09:23 Intake and Output: 08/11/17 08/11/17 06:59 18:59 Intake Total 1600 Balance 1600 - Medications Medications: Current Medications Acetaminophen (Tylenol 325mg Tab) 650 mg PO Q6 PRN PRN Reason: Fever >100.4 F Last Admin: 08/02/17 00:25 Dose: 650 mg Albuterol/Ipratropium (Duoneb 3 Mg/0.5 Mg (3 Ml) Ud) 3 ml INH RQ4 [facility] Last Admin: 08/11/17 07:39 Dose: Not Given Artificial Tears (Artificial Tears) 0 ml OD Q3H PRN PRN Reason: Dry eyes Last Admin: 08/06/17 05:26 Dose: 1 drop Ascorbic Acid (Vitamin C 500 Mg Tab) 500 mg PO DAILY [facility] Last Admin: 08/11/17 11:30 Dose: 500 mg Calcium Acetate (Phoslo) 667 mg PO TIDCC [facility] Last Admin: 08/11/17 11:32 Dose: 667 mg Carvedilol (Coreg) 6.25 mg PO BID [facility] Last Admin: 08/11/17 11:30 Dose: 6.25 mg Clopidogrel Bisulfate (Plavix) 75 mg PO DAILY [facility] Last Admin: 08/07/17 10:28 Dose: Not Given Epoetin Kumar (Procrit) 10,000 unit IV MWF [facility] Last Admin: 08/08/17 18:24 Dose: 10,000 unit Famotidine (Pepcid) 20 mg GT BID [facility] Last Admin: 08/11/17 11:30 Dose: 20 mg Folic Acid (Folic Acid) 1 mg PO DAILY [facility] Last Admin: 08/11/17 11:30 Dose: 1 mg Piperacillin Sod/Tazobactam (Sod 3.375 gm/ Sodium Chloride) 100 mls @ 200 mls/ hr IVPB Q8H [facility] PRN Reason: Protocol Last Admin: 08/11/17 05:42 Dose: 200 mls/hr Sodium Chloride (Sodium Chloride 0.45%) 1,000 mls @ 100 mls/hr IV .Q10H [facility] Last Admin: 08/11/17 01:25 Dose: 100 mls/hr Insulin Human Regular (Novolin R) 0 unit SC Q6 [facility] PRN Reason: Protocol Last Admin: 08/11/17 11:33 Dose: Not Given Levetiracetam (Keppra) 250 mg PO BID [facility] Last Admin: 08/11/17 11:30 Dose: 250 mg Levothyroxine Sodium (Synthroid) 50 mcg PO DAILY@0630 [facility] Last Admin: 08/11/17 05:43 Dose: 50 mcg Multivitamins (Hexavitamin) 1 tab PO DAILY [facility] Last Admin: 08/11/17 11:30 Dose: 1 tab Saccharomyces Boulardii (Florastor) 250 mg PO Q12 [facility] Last Admin: 08/11/17 11:30 Dose: 250 mg Thiamine HCl (Vitamin B1 Tab) 100 mg PO DAILY [facility] Last Admin: 08/11/17 11:30 Dose: 100 mg Zinc Sulfate (Zinc Sulfate 220 Mg Cap) 220 mg PO DAILY [facility] Last Admin: 08/11/17 11:30 Dose: 220 mg - Labs Labs: 08/11/17 07:12 08/11/17 07:12 PT 12.0 SECONDS (9.7-12.2) 08/10/17 11:16 INR 1.1 08/10/17 11:16 APTT 27 SECONDS (21-34) 07/31/17 06:21 - Constitutional Appears: No Acute Distress, Chronically Ill - Head Exam Head Exam: ATRAUMATIC, NORMAL INSPECTION - Eye Exam Eye Exam: EOMI, Normal appearance - Neck Exam Neck Exam: Normal Inspection. absent: Tenderness - Respiratory Exam Respiratory Exam: Clear to Ausculation Bilateral, NORMAL BREATHING PATTERN - Cardiovascular Exam Cardiovascular Exam: REGULAR RHYTHM, +S1 - GI/Abdominal Exam GI & Abdominal Exam: Distended, Soft. absent: Tenderness - Extremities Exam Extremities Exam: Normal Inspection. absent: Tenderness - Neurological Exam Neurological Exam: Awake, CN II-XII Intact - Skin Skin Exam: Dry, Warm Assessment and Plan (1) TIA (transient ischemic attack) Status: Acute (2) ESRD (end stage renal disease) Status: Acute (3) Heart block AV complete Status: Acute (4) Type 2 diabetes mellitus with diabetic nephropathy Status: Acute - Assessment and Plan (Free Text) Plan: dialysis MWF PEG feeds Increase BP med dosage
[2017-08-11] MEDS: Aritificial Tears (15ml) OD PRN (14:35)
[2017-08-11] MEDS: Epoetin Alfa 10,000 unit/ml Dialysis IV SCH (16:27)
--- NOTE | 2017-08-11 16:33 | CP.PCM.PN ---
Subjective - Date & Time of Evaluation Date of Evaluation: 08/11/17 Time of Evaluation: 16:30 - Subjective Subjective: Patient had a PEG tube placement done today. We'll be starting the feeding tomorrow. Scheduled for hemodialysis today. He is more awake and responding. But patient is still somewhat confused. On examination: Vital signs stable. Chest bilateral good air entry. Minimal cough noted. Regular heart sound. Nontender abdomen. Labs reviewed Assessment and recommendation: 77-year-old male with a history of CAD, CABG, hypertension, end-stage renal disease currently on hemodialysis. Tolerating well. Metabolic encephalopathy, improving. Facial nerve palsy. We'll continue the current treatment. Physical therapy. rehab evaluation. Will follow the patient Objective - Vital Signs/Intake and Output Vital Signs (last 24 hours): Temp Pulse Resp BP Pulse Ox 97.8 F 85 20 148/64 98 08/11/17 15:45 08/11/17 15:45 08/11/17 15:45 08/11/17 16:15 08/11/17 15:45 Intake and Output: 08/11/17 08/11/17 06:59 18:59 Intake Total 1600 Balance 1600 - Medications Medications: Current Medications Acetaminophen (Tylenol 325mg Tab) 650 mg PO Q6 PRN PRN Reason: Fever >100.4 F Last Admin: 08/02/17 00:25 Dose: 650 mg Albuterol/Ipratropium (Duoneb 3 Mg/0.5 Mg (3 Ml) Ud) 3 ml INH RQ4 [facility] Last Admin: 08/11/17 16:03 Dose: Not Given Artificial Tears (Artificial Tears) 0 ml OD Q3H PRN PRN Reason: Dry eyes Last Admin: 08/11/17 14:35 Dose: 1 drop Ascorbic Acid (Vitamin C 500 Mg Tab) 500 mg PO DAILY [facility] Last Admin: 08/11/17 11:30 Dose: 500 mg Calcium Acetate (Phoslo) 667 mg PO TIDCC [facility] Last Admin: 08/11/17 11:32 Dose: 667 mg Carvedilol (Coreg) 12.5 mg PO BID [facility] Clopidogrel Bisulfate (Plavix) 75 mg PO DAILY [facility] Last Admin: 08/07/17 10:28 Dose: Not Given Epoetin Kumar (Procrit) 10,000 unit IV MWF [facility] Last Admin: 08/11/17 16:27 Dose: 10,000 unit Famotidine (Pepcid) 20 mg GT BID [facility] Last Admin: 08/11/17 11:30 Dose: 20 mg Folic Acid (Folic Acid) 1 mg PO DAILY [facility] Last Admin: 08/11/17 11:30 Dose: 1 mg Piperacillin Sod/Tazobactam (Sod 3.375 gm/ Sodium Chloride) 100 mls @ 200 mls/ hr IVPB Q8H [facility] PRN Reason: Protocol Last Admin: 08/11/17 14:33 Dose: 200 mls/hr Sodium Chloride (Sodium Chloride 0.45%) 1,000 mls @ 100 mls/hr IV .Q10H [facility] Last Admin: 08/11/17 01:25 Dose: 100 mls/hr Insulin Human Regular (Novolin R) 0 unit SC Q6 [facility] PRN Reason: Protocol Last Admin: 08/11/17 11:33 Dose: Not Given Levetiracetam (Keppra) 250 mg PO BID [facility] Last Admin: 08/11/17 11:30 Dose: 250 mg Levothyroxine Sodium (Synthroid) 50 mcg PO DAILY@0630 [facility] Last Admin: 08/11/17 05:43 Dose: 50 mcg Multivitamins (Hexavitamin) 1 tab PO DAILY [facility] Last Admin: 08/11/17 11:30 Dose: 1 tab Saccharomyces Boulardii (Florastor) 250 mg PO Q12 [facility] Last Admin: 08/11/17 11:30 Dose: 250 mg Thiamine HCl (Vitamin B1 Tab) 100 mg PO DAILY [facility] Last Admin: 08/11/17 11:30 Dose: 100 mg Zinc Sulfate (Zinc Sulfate 220 Mg Cap) 220 mg PO DAILY [facility] Last Admin: 08/11/17 11:30 Dose: 220 mg - Labs Labs: 08/11/17 07:12 08/11/17 07:12 PT 12.0 SECONDS (9.7-12.2) 08/10/17 11:16 INR 1.1 08/10/17 11:16 APTT 27 SECONDS (21-34) 07/31/17 06:21
[2017-08-12] MEDS: (Novolin R) Insulin Human Regular 100 units/ml vial SC SCH ×4 (00:11→17:48)
[2017-08-12] MEDS: Albuterol-Ipratrop 3 mg / 0.5 (3 ml) UD INH SCH ×6 (00:29→19:55)
[2017-08-12] MEDS: Piperacillin/Tazobact 3.375 GM in Sodium Chloride 100 ML IVPB SCH ×3 (06:07→21:41)
[2017-08-12] MEDS: Levothyroxine 50 MCG TAB PO SCH (06:09)
[2017-08-12 07:56] LABS: BASO # 0.1 K/uL (0.0-0.2); BASO % 0.9 % (0.0-2.0); EOS # 0.1 K/uL (0.0-0.7); EOS % 1.6 % (0.0-4.0); LYMPH # 0.8 K/uL (1.0-4.3); LYMPH % 8.9 % (20.0-40.0); MEAN CELL VOLUME 97.5 fL (80.0-94.0); MEAN CORPUSCULAR HGB CONC 32.8 g/dL (33.0-37.0); MEAN PLATELET VOLUME 8.3 fL (7.2-11.7); MONO # 1.1 K/uL (0.0-0.8); MONO % 12.6 % (0.0-10.0); NEUT # 6.6 K/uL (1.8-7.0); NRBC % 0.1 % (0.0-2.0); PLATELET COUNT 206 K/uL (130-400); RED CELL DISTRIBUTION WIDTH 21.4 % (11.5-14.5); WHITE BLOOD COUNT 8.7 K/uL (4.8-10.8)
[2017-08-12 08:27] LABS: ALB/GLOB RATIO 0.9 (1.0-2.1); ALBUMIN 2.9 g/dL (3.5-5.0); CALCIUM 8.1 mg/dl (8.6-10.4)
--- NOTE | 2017-08-12 09:11 | CP.PCM.PN ---
<Bal Juarez - Last Filed: 08/12/17 09:11> Subjective - Date & Time of Evaluation Date of Evaluation: 08/12/17 Time of Evaluation: 09:11 - Subjective Subjective: GI Fellow PGY4, progress note. Patient seen and examined at bedside. No acute overnight events. No complaints at this time. He has been tolerating meds and flushes via PEG tube. 12pt ROS negative except for as in HPI. Objective - Vital Signs/Intake and Output Vital Signs (last 24 hours): Temp Pulse Resp BP Pulse Ox 99.0 F 75 20 114/62 96 08/12/17 08:49 08/12/17 08:49 08/12/17 08:49 08/12/17 08:49 08/12/17 08:49 Intake and Output: 08/12/17 08/12/17 06:59 18:59 Intake Total 350 550 Balance 350 550 - Medications Medications: Current Medications Acetaminophen (Tylenol 325mg Tab) 650 mg PO Q6 PRN PRN Reason: Fever >100.4 F Last Admin: 08/02/17 00:25 Dose: 650 mg Albuterol/Ipratropium (Duoneb 3 Mg/0.5 Mg (3 Ml) Ud) 3 ml INH RQ4 [facility] Last Admin: 08/12/17 07:41 Dose: 3 ml Artificial Tears (Artificial Tears) 0 ml OD Q3H PRN PRN Reason: Dry eyes Last Admin: 08/11/17 14:35 Dose: 1 drop Ascorbic Acid (Vitamin C 500 Mg Tab) 500 mg PO DAILY [facility] Last Admin: 08/11/17 11:30 Dose: 500 mg Calcium Acetate (Phoslo) 667 mg PO TIDCC [facility] Last Admin: 08/12/17 08:56 Dose: 667 mg Carvedilol (Coreg) 12.5 mg PO BID [facility] Last Admin: 08/11/17 19:33 Dose: 12.5 mg Clopidogrel Bisulfate (Plavix) 75 mg PO DAILY [facility] Last Admin: 08/07/17 10:28 Dose: Not Given Epoetin Kumar (Procrit) 10,000 unit IV MWF [facility] Last Admin: 08/11/17 16:27 Dose: 10,000 unit Famotidine (Pepcid) 20 mg GT BID [facility] Last Admin: 07/02/18 19:33 Dose: 20 mg Folic Acid (Folic Acid) 1 mg PO DAILY [facility] Last Admin: 08/11/17 11:30 Dose: 1 mg Piperacillin Sod/Tazobactam (Sod 3.375 gm/ Sodium Chloride) 100 mls @ 200 mls/ hr IVPB Q8H [facility] PRN Reason: Protocol Last Admin: 08/12/17 06:07 Dose: 200 mls/hr Sodium Chloride (Sodium Chloride 0.45%) 1,000 mls @ 50 mls/hr IV .Q20H [facility] Last Admin: 08/11/17 21:10 Dose: 50 mls/hr Insulin Human Regular (Novolin R) 0 unit SC Q6 [facility] PRN Reason: Protocol Last Admin: 08/12/17 07:00 Dose: Not Given Levetiracetam (Keppra) 250 mg PO BID [facility] Last Admin: 08/11/17 19:32 Dose: 250 mg Levothyroxine Sodium (Synthroid) 50 mcg PO DAILY@0630 [facility] Last Admin: 08/12/17 06:09 Dose: 50 mcg Multivitamins (Hexavitamin) 1 tab PO DAILY [facility] Last Admin: 08/11/17 11:30 Dose: 1 tab Saccharomyces Boulardii (Florastor) 250 mg PO Q12 [facility] Last Admin: 08/11/17 21:08 Dose: 250 mg Thiamine HCl (Vitamin B1 Tab) 100 mg PO DAILY [facility] Last Admin: 08/11/17 11:30 Dose: 100 mg Zinc Sulfate (Zinc Sulfate 220 Mg Cap) 220 mg PO DAILY [facility] Last Admin: 08/11/17 11:30 Dose: 220 mg - Labs Labs: 08/12/17 07:45 08/12/17 07:45 PT 12.0 SECONDS (9.7-12.2) 08/10/17 11:16 INR 1.1 08/10/17 11:16 APTT 27 SECONDS (21-34) 07/31/17 06:21 - Constitutional Appears: Non-toxic, No Acute Distress, Chronically Ill - Head Exam Head Exam: ATRAUMATIC, NORMAL INSPECTION, NORMOCEPHALIC - Eye Exam Eye Exam: EOMI, Normal appearance - ENT Exam ENT Exam: Mucous Membranes Moist, Normal Exam - Neck Exam Neck Exam: Full ROM, Normal Inspection - Respiratory Exam Respiratory Exam: NORMAL BREATHING PATTERN. absent: Respiratory Distress, Stridor - Cardiovascular Exam Cardiovascular Exam: REGULAR RHYTHM - GI/Abdominal Exam GI & Abdominal Exam: Soft. absent: Distended, Tenderness Additional comments: PEG tube in good position. Bumper loosened to 4cm. - Neurological Exam Neurological Exam: Alert, Awake. absent: Oriented x3 - Psychiatric Exam Psychiatric exam: Flat Affect, Normal Mood. absent: Anxious - Skin Skin Exam: Dry, Intact Assessment and Plan - Assessment and Plan (Free Text) Assessment: This is a 77yM with pmhx of ESRD on peritoneal dialysis, HTN / DM, CAD s/p CABG , complete HB s/p PPM presenting with lethargy and confusion. 1. 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 Dysphagia 6. ESRD 7. Hx CABG 8. Failure to thrive s/p PEG tube placement 08/11/17 Plan: -Continue supportive care -s/p PEG tube 08/11/17, functioning well. In good position with bumper now at 4cm. No bleeding. -okay to start regular tube feeds per primary -30cc free water flushes q8h to prevent tube obstruction -We will sign-off at this point. Thank you for this interesting patient. Please call the GI team for any further questions. <Mayur Irvin - Last Filed: 08/12/17 09:30> Objective - Vital Signs/Intake and Output Vital Signs (last 24 hours): Temp Pulse Resp BP Pulse Ox 99.0 F 75 20 142/62 96 08/12/17 08:49 08/12/17 08:49 08/12/17 08:49 08/12/17 09:20 08/12/17 08:49 Intake and Output: 08/12/17 08/12/17 06:59 18:59 Intake Total 350 550 Balance 350 550 - Medications Medications: Current Medications Acetaminophen (Tylenol 325mg Tab) 650 mg PO Q6 PRN PRN Reason: Fever >100.4 F Last Admin: 08/02/17 00:25 Dose: 650 mg Albuterol/Ipratropium (Duoneb 3 Mg/0.5 Mg (3 Ml) Ud) 3 ml INH RQ4 [facility] Last Admin: 08/12/17 07:41 Dose: 3 ml Artificial Tears (Artificial Tears) 0 ml OD Q3H PRN PRN Reason: Dry eyes Last Admin: 08/11/17 14:35 Dose: 1 drop Ascorbic Acid (Vitamin C 500 Mg Tab) 500 mg PO DAILY [facility] Last Admin: 08/12/17 09:20 Dose: 500 mg Calcium Acetate (Phoslo) 667 mg PO TIDCC [facility] Last Admin: 08/12/17 08:56 Dose: 667 mg Carvedilol (Coreg) 12.5 mg PO BID [facility] Last Admin: 08/12/17 09:20 Dose: 12.5 mg Clopidogrel Bisulfate (Plavix) 75 mg PO DAILY [facility] Last Admin: 08/07/17 10:28 Dose: Not Given Epoetin Kumar (Procrit) 10,000 unit IV MWF [facility] Last Admin: 08/11/17 16:27 Dose: 10,000 unit Famotidine (Pepcid) 20 mg GT BID [facility] Last Admin: 08/12/17 09:19 Dose: 20 mg Folic Acid (Folic Acid) 1 mg PO DAILY [facility] Last Admin: 08/12/17 09:20 Dose: 1 mg Piperacillin Sod/Tazobactam (Sod 3.375 gm/ Sodium Chloride) 100 mls @ 200 mls/ hr IVPB Q8H [facility] PRN Reason: Protocol Last Admin: 08/12/17 06:07 Dose: 200 mls/hr Sodium Chloride (Sodium Chloride 0.45%) 1,000 mls @ 50 mls/hr IV .Q20H [facility] Last Admin: 08/11/17 21:10 Dose: 50 mls/hr Insulin Human Regular (Novolin R) 0 unit SC Q6 [facility] PRN Reason: Protocol Last Admin: 08/12/17 07:00 Dose: Not Given Levetiracetam (Keppra) 250 mg PO BID [facility] Last Admin: 08/12/17 09:20 Dose: 250 mg Levothyroxine Sodium (Synthroid) 50 mcg PO DAILY@0630 [facility] Last Admin: 08/12/17 06:09 Dose: 50 mcg Multivitamins (Hexavitamin) 1 tab PO DAILY [facility] Last Admin: 08/12/17 09:20 Dose: 1 tab Saccharomyces Boulardii (Florastor) 250 mg PO Q12 [facility] Last Admin: 08/12/17 09:20 Dose: 250 mg Thiamine HCl (Vitamin B1 Tab) 100 mg PO DAILY [facility] Last Admin: 08/12/17 09:20 Dose: 100 mg Zinc Sulfate (Zinc Sulfate 220 Mg Cap) 220 mg PO DAILY [facility] Last Admin: 08/12/17 09:20 Dose: 220 mg - Labs Labs: 08/12/17 07:45 08/12/17 07:45 PT 12.0 SECONDS (9.7-12.2) 08/10/17 11:16 INR 1.1 08/10/17 11:16 APTT 27 SECONDS (21-34) 07/31/17 06:21 Attending/Attestation - Attestation I have personally seen and examined this patient.: Yes I have fully participated in the care of the patient.: Yes I have reviewed all pertinent clinical information, including history, physical exam and plan: Yes Notes (Text): 08/12/17 09:27 I have seen and examined patient with GI fellow. No acute events overnight, he appears more alert and responsive as compared to previous days. s/p PEG placement yesterday, site examined and bumper loosened to 3.5 cm from abdominal wall. Review of vitals from today are normal. ESRD on HD DM / HTN CVA CAD / CABG, s/p PPM Cirrhosis - unclear etiology Dysphagia, s/p PEG placement yesterday - May begin tube feeding via gastrostomy tube - Flush PEG with 30 cc water q 8 hours - Further management as per medical team. No further planned GI intervention, will sign off case. Please reconsult as necessary, thank you.
[2017-08-12] MEDS: Saccharomyces Boulardi 250 mg Cap PO SCH ×2 (09:20→21:41)
[2017-08-12] MEDS: Multiple Vitamins Tab PO SCH (09:20)
[2017-08-12 10:21] LABS: ANISOCYTOSIS MODERATE; BANDS 2 % (0-2); EOSINOPHIL 2 % (0-4); LYMPHOCYTE 6 % (20-40); METAMYELOCYTE 1 % (0-0); MONOCYTE 14 % (0-10); NEUTROPHIL 75 % (50-75); PLATELET ESTIMATE NORMAL (NORMAL); TOTAL CELLS COUNTED 100
--- NOTE | 2017-08-12 10:47 | CP.PCM.PN ---
Subjective - Date & Time of Evaluation Date of Evaluation: 08/12/17 Time of Evaluation: 10:44 - Subjective Subjective: stable dialysis 7/ alert, no new changes; no SOB, n, v, f, d, chills PEG in place- awaiting use av F with good bruit Objective - Vital Signs/Intake and Output Vital Signs (last 24 hours): Temp Pulse Resp BP Pulse Ox 99.0 F 75 20 142/62 96 08/12/17 08:49 08/12/17 08:49 08/12/17 08:49 08/12/17 09:20 08/12/17 08:49 Intake and Output: 08/12/17 08/12/17 06:59 18:59 Intake Total 350 550 Balance 350 550 - Medications Medications: Current Medications Acetaminophen (Tylenol 325mg Tab) 650 mg PO Q6 PRN PRN Reason: Fever >100.4 F Last Admin: 08/02/17 00:25 Dose: 650 mg Albuterol/Ipratropium (Duoneb 3 Mg/0.5 Mg (3 Ml) Ud) 3 ml INH RQ4 [facility] Last Admin: 08/12/17 07:41 Dose: 3 ml Artificial Tears (Artificial Tears) 0 ml OD Q3H PRN PRN Reason: Dry eyes Last Admin: 08/11/17 14:35 Dose: 1 drop Ascorbic Acid (Vitamin C 500 Mg Tab) 500 mg PO DAILY [facility] Last Admin: 08/12/17 09:20 Dose: 500 mg Calcium Acetate (Phoslo) 667 mg PO TIDCC [facility] Last Admin: 08/12/17 08:56 Dose: 667 mg Carvedilol (Coreg) 12.5 mg PO BID [facility] Last Admin: 08/12/17 09:20 Dose: 12.5 mg Clopidogrel Bisulfate (Plavix) 75 mg PO DAILY [facility] Last Admin: 08/07/17 10:28 Dose: Not Given Epoetin Kumar (Procrit) 10,000 unit IV MWF [facility] Last Admin: 08/11/17 16:27 Dose: 10,000 unit Famotidine (Pepcid) 20 mg GT BID [facility] Last Admin: 08/12/17 09:19 Dose: 20 mg Folic Acid (Folic Acid) 1 mg PO DAILY [facility] Last Admin: 08/12/17 09:20 Dose: 1 mg Piperacillin Sod/Tazobactam (Sod 3.375 gm/ Sodium Chloride) 100 mls @ 200 mls/ hr IVPB Q8H [facility] PRN Reason: Protocol Last Admin: 08/12/17 06:07 Dose: 200 mls/hr Sodium Chloride (Sodium Chloride 0.45%) 1,000 mls @ 50 mls/hr IV .Q20H [facility] Last Admin: 08/11/17 21:10 Dose: 50 mls/hr Insulin Human Regular (Novolin R) 0 unit SC Q6 [facility] PRN Reason: Protocol Last Admin: 08/12/17 07:00 Dose: Not Given Levetiracetam (Keppra) 250 mg PO BID [facility] Last Admin: 08/12/17 09:20 Dose: 250 mg Levothyroxine Sodium (Synthroid) 50 mcg PO DAILY@0630 [facility] Last Admin: 08/12/17 06:09 Dose: 50 mcg Multivitamins (Hexavitamin) 1 tab PO DAILY [facility] Last Admin: 08/12/17 09:20 Dose: 1 tab Saccharomyces Boulardii (Florastor) 250 mg PO Q12 [facility] Last Admin: 08/12/17 09:20 Dose: 250 mg Thiamine HCl (Vitamin B1 Tab) 100 mg PO DAILY [facility] Last Admin: 08/12/17 09:20 Dose: 100 mg Zinc Sulfate (Zinc Sulfate 220 Mg Cap) 220 mg PO DAILY [facility] Last Admin: 08/12/17 09:20 Dose: 220 mg - Labs Labs: 08/12/17 07:45 08/12/17 07:45 PT 12.0 SECONDS (9.7-12.2) 08/10/17 11:16 INR 1.1 08/10/17 11:16 APTT 27 SECONDS (21-34) 07/31/17 06:21 - Constitutional Appears: No Acute Distress, Chronically Ill - Head Exam Head Exam: ATRAUMATIC, NORMAL INSPECTION - Eye Exam Eye Exam: EOMI, Normal appearance - Neck Exam Neck Exam: Normal Inspection. absent: Tenderness - Respiratory Exam Respiratory Exam: Clear to Ausculation Bilateral, NORMAL BREATHING PATTERN - Cardiovascular Exam Cardiovascular Exam: REGULAR RHYTHM, +S1 - GI/Abdominal Exam GI & Abdominal Exam: Soft. absent: Tenderness - Extremities Exam Extremities Exam: Normal Inspection. absent: Tenderness - Neurological Exam Neurological Exam: Altered - Skin Skin Exam: Dry, Warm Assessment and Plan (1) TIA (transient ischemic attack) Status: Acute (2) ESRD (end stage renal disease) Status: Acute (3) Heart block AV complete Status: Acute (4) Type 2 diabetes mellitus with diabetic nephropathy Status: Acute - Assessment and Plan (Free Text) Plan: dialysis MWF await AV access maturation await PEG use outpt dialysis arranged
[2017-08-12] MEDS: Sodium Chloride 0.45% 1,000 ML IV SCH (19:13)
--- NOTE | 2017-08-12 21:01 | CP.PCM.PN ---
Subjective - Date & Time of Evaluation Date of Evaluation: 08/12/17 Time of Evaluation: 21:01 - Subjective Subjective: Patient is today more awake. Tolerating the PEG tube feeding. But he is complaining of abdominal fullness. No nausea vomiting noted. Denies any chest pain. Patient underwent hemodialysis yesterday On examination: Vital signs stable. Chest bilateral good air entry. The PEG tube site is clean. Labs reviewed Spoke to the patient's Assessment and recommendation: 77-year-old male with a history of CAD, CABG, hypertension, end-stage renal disease on dialysis. Admitted with facial nerve injury, paralysis, metabolic encephalopathy. Improving. Continue the current treatment. Possible rehab evaluation and management. Objective - Vital Signs/Intake and Output Vital Signs (last 24 hours): Temp Pulse Resp BP Pulse Ox 98 F 75 20 145/65 96 08/12/17 15:00 08/12/17 15:00 08/12/17 15:00 08/12/17 17:57 08/12/17 15:00 Intake and Output: 08/12/17 08/13/17 18:59 06:59 Intake Total 550 Balance 550 - Medications Medications: Current Medications Acetaminophen (Tylenol 325mg Tab) 650 mg PO Q6 PRN PRN Reason: Fever >100.4 F Last Admin: 08/02/17 00:25 Dose: 650 mg Albuterol/Ipratropium (Duoneb 3 Mg/0.5 Mg (3 Ml) Ud) 3 ml INH RQ4 [facility] Last Admin: 08/12/17 19:55 Dose: 3 ml Artificial Tears (Artificial Tears) 0 ml OD Q3H PRN PRN Reason: Dry eyes Last Admin: 08/11/17 14:35 Dose: 1 drop Ascorbic Acid (Vitamin C 500 Mg Tab) 500 mg PO DAILY [facility] Last Admin: 08/12/17 09:20 Dose: 500 mg Calcium Acetate (Phoslo) 667 mg PO TIDCC [facility] Last Admin: 08/12/17 17:56 Dose: 667 mg Carvedilol (Coreg) 12.5 mg PO BID [facility] Last Admin: 08/12/17 17:57 Dose: 12.5 mg Clopidogrel Bisulfate (Plavix) 75 mg PO DAILY [facility] Last Admin: 08/07/17 10:28 Dose: Not Given Epoetin Kumar (Procrit) 10,000 unit IV MWF [facility] Last Admin: 08/11/17 16:27 Dose: 10,000 unit Famotidine (Pepcid) 20 mg GT BID [facility] Last Admin: 08/12/17 17:56 Dose: 20 mg Folic Acid (Folic Acid) 1 mg PO DAILY [facility] Last Admin: 08/12/17 09:20 Dose: 1 mg Piperacillin Sod/Tazobactam (Sod 3.375 gm/ Sodium Chloride) 100 mls @ 200 mls/ hr IVPB Q8H [facility] PRN Reason: Protocol Last Admin: 08/12/17 13:45 Dose: 200 mls/hr Insulin Human Regular (Novolin R) 0 unit SC Q6 [facility] PRN Reason: Protocol Last Admin: 08/12/17 17:48 Dose: Not Given Levetiracetam (Keppra) 250 mg PO BID [facility] Last Admin: 08/12/17 17:56 Dose: 250 mg Levothyroxine Sodium (Synthroid) 50 mcg PO DAILY@0630 [facility] Last Admin: 08/12/17 06:09 Dose: 50 mcg Multivitamins (Hexavitamin) 1 tab PO DAILY [facility] Last Admin: 08/12/17 09:20 Dose: 1 tab Saccharomyces Boulardii (Florastor) 250 mg PO Q12 [facility] Last Admin: 08/12/17 09:20 Dose: 250 mg Thiamine HCl (Vitamin B1 Tab) 100 mg PO DAILY [facility] Last Admin: 08/12/17 09:20 Dose: 100 mg Zinc Sulfate (Zinc Sulfate 220 Mg Cap) 220 mg PO DAILY [facility] Last Admin: 08/12/17 09:20 Dose: 220 mg - Labs Labs: 08/12/17 07:45 08/12/17 07:45 PT 12.0 SECONDS (9.7-12.2) 08/10/17 11:16 INR 1.1 08/10/17 11:16 APTT 27 SECONDS (21-34) 07/31/17 06:21
[2017-08-13] MEDS: (Novolin R) Insulin Human Regular 100 units/ml vial SC SCH ×3 (00:30→17:52)
[2017-08-13] MEDS: Albuterol-Ipratrop 3 mg / 0.5 (3 ml) UD INH SCH ×7 (00:53→23:39)
[2017-08-13] MEDS: Levothyroxine 50 MCG TAB PO SCH (05:34)
[2017-08-13] MEDS: Piperacillin/Tazobact 3.375 GM in Sodium Chloride 100 ML IVPB SCH ×3 (05:35→21:17)
[2017-08-13 07:00] LABS: BASO # 0.1 K/uL (0.0-0.2); BASO % 0.6 % (0.0-2.0); EOS # 0.3 K/uL (0.0-0.7); EOS % 3.3 % (0.0-4.0); HEMOGLOBIN 9.2 g/dL (12.0-18.0); LYMPH # 0.8 K/uL (1.0-4.3); LYMPH % 8.6 % (20.0-40.0); MEAN CELL VOLUME 96.5 fL (80.0-94.0); MEAN CORPUSCULAR HEMOGLOBIN 31.6 pg (27.0-31.0); MEAN CORPUSCULAR HGB CONC 32.8 g/dL (33.0-37.0); MEAN PLATELET VOLUME 8.4 fL (7.2-11.7); MONO # 1.3 K/uL (0.0-0.8); NEUT # 7.1 K/uL (1.8-7.0); NEUT % 73.5 % (50.0-75.0); PLATELET COUNT 210 K/uL (130-400); RBC 2.91 Mil/uL (4.40-5.90); WHITE BLOOD COUNT 9.6 K/uL (4.8-10.8)
[2017-08-13 07:52] LABS: ALB/GLOB RATIO 0.9 (1.0-2.1); CALCIUM 8.4 mg/dl (8.6-10.4)
[2017-08-13 08:55] LABS: BANDS 3 % (0-2); EOSINOPHIL 8 % (0-4); LYMPHOCYTE 3 % (20-40); MONOCYTE 10 % (0-10); NEUTROPHIL 75 % (50-75); PLATELET ESTIMATE NORMAL (NORMAL); REACTIVE LYMPHOCYTES 1 % (0-0); TOTAL CELLS COUNTED 100
[2017-08-13 08:59] LABS: ANISOCYTOSIS MODERATE; HYPOCHROMIC SLIGHT
[2017-08-13 09:00] LABS: POLYCHROMIC SLIGHT; TOXIC GRANULATION PRESENT
--- NOTE | 2017-08-13 09:02 | CP.PCM.PN ---
Subjective - Date & Time of Evaluation Date of Evaluation: 08/13/17 Time of Evaluation: 08:59 - Subjective Subjective: sleepy now but has bee more alert BP labile- to monitor stable HD on 08/11 PEG feeds started no new changes otherwise Objective - Vital Signs/Intake and Output Vital Signs (last 24 hours): Temp Pulse Resp BP Pulse Ox 97.7 F 70 20 182/67 H 100 08/13/17 07:00 08/13/17 07:00 08/13/17 07:00 08/13/17 07:00 08/13/17 07:00 - Medications Medications: Current Medications Acetaminophen (Tylenol 325mg Tab) 650 mg PO Q6 PRN PRN Reason: Fever >100.4 F Last Admin: 08/02/17 00:25 Dose: 650 mg Albuterol/Ipratropium (Duoneb 3 Mg/0.5 Mg (3 Ml) Ud) 3 ml INH RQ4 [facility] Last Admin: 08/13/17 07:25 Dose: 3 ml Artificial Tears (Artificial Tears) 0 ml OD Q3H PRN PRN Reason: Dry eyes Last Admin: 08/11/17 14:35 Dose: 1 drop Ascorbic Acid (Vitamin C 500 Mg Tab) 500 mg PO DAILY [facility] Last Admin: 08/12/17 09:20 Dose: 500 mg Calcium Acetate (Phoslo) 667 mg PO TIDCC [facility] Last Admin: 08/13/17 08:12 Dose: 667 mg Carvedilol (Coreg) 12.5 mg PO BID [facility] Last Admin: 08/12/17 17:57 Dose: 12.5 mg Clopidogrel Bisulfate (Plavix) 75 mg PO DAILY [facility] Last Admin: 08/07/17 10:28 Dose: Not Given Epoetin Kumar (Procrit) 10,000 unit IV MWF [facility] Last Admin: 08/11/17 16:27 Dose: 10,000 unit Famotidine (Pepcid) 20 mg GT BID [facility] Last Admin: 08/12/17 17:56 Dose: 20 mg Folic Acid (Folic Acid) 1 mg PO DAILY [facility] Last Admin: 08/12/17 09:20 Dose: 1 mg Piperacillin Sod/Tazobactam (Sod 3.375 gm/ Sodium Chloride) 100 mls @ 200 mls/ hr IVPB Q8H [facility] PRN Reason: Protocol Last Admin: 08/13/17 05:35 Dose: 200 mls/hr Insulin Human Regular (Novolin R) 0 unit SC Q6 [facility] PRN Reason: Protocol Last Admin: 08/13/17 00:30 Dose: 2 units Levetiracetam (Keppra) 250 mg PO BID [facility] Last Admin: 08/12/17 17:56 Dose: 250 mg Levothyroxine Sodium (Synthroid) 50 mcg PO DAILY@0630 [facility] Last Admin: 08/13/17 05:34 Dose: 50 mcg Multivitamins (Hexavitamin) 1 tab PO DAILY [facility] Last Admin: 08/12/17 09:20 Dose: 1 tab Thiamine HCl (Vitamin B1 Tab) 100 mg PO DAILY [facility] Last Admin: 08/12/17 09:20 Dose: 100 mg Zinc Sulfate (Zinc Sulfate 220 Mg Cap) 220 mg PO DAILY [facility] Last Admin: 08/12/17 09:20 Dose: 220 mg - Labs Labs: 08/13/17 06:51 08/13/17 06:51 PT 12.0 SECONDS (9.7-12.2) 08/10/17 11:16 INR 1.1 08/10/17 11:16 APTT 27 SECONDS (21-34) 07/31/17 06:21 - Constitutional Appears: No Acute Distress, Chronically Ill - Head Exam Head Exam: ATRAUMATIC, NORMAL INSPECTION - Eye Exam Eye Exam: EOMI, Normal appearance - Neck Exam Neck Exam: Normal Inspection. absent: Tenderness - Respiratory Exam Respiratory Exam: Clear to Ausculation Bilateral, NORMAL BREATHING PATTERN - Cardiovascular Exam Cardiovascular Exam: REGULAR RHYTHM, +S1 - GI/Abdominal Exam GI & Abdominal Exam: Soft. absent: Tenderness - Extremities Exam Extremities Exam: Normal Inspection. absent: Tenderness - Neurological Exam Neurological Exam: Altered - Skin Skin Exam: Dry, Warm Assessment and Plan (1) TIA (transient ischemic attack) Status: Acute (2) ESRD (end stage renal disease) Status: Acute (3) Heart block AV complete Status: Acute (4) Type 2 diabetes mellitus with diabetic nephropathy Status: Acute - Assessment and Plan (Free Text) Plan: same HD MWF, today await AV F maturation continbue PEG feeds monitor HTN
[2017-08-13] MEDS: Multiple Vitamins Tab PO SCH (10:39)
[2017-08-13] MEDS: Multiple Vitamins Oral Solution PO SCH (10:59)
[2017-08-13] MEDS: levETIRAcetam 100 mg/ml (5ml) Oral Syringe PEG SCH ×2 (10:59→17:51)
--- NOTE | 2017-08-13 23:52 | CP.PCM.PN ---
Subjective - Date & Time of Evaluation Date of Evaluation: 08/13/17 Time of Evaluation: 23:52 - Subjective Subjective: Patient today getting the hemodialysis very late. Comfortable otherwise. Yesterday he was standing up, and a taking few steps. Complaining of not eating well. He is having some abdominal distention. No nausea no vomiting. Contiguously receiving the PEG feeding On examination: Vital signs stable. Chest good air entry bilaterally regular heart sound nontender abdomen, distention of the abdomen noted. But tenderness in the left upper quadrant noted Labs reviewed Assessment and recommendation: 68-year-old male with a history of hypertension diabetes hypercholesteremia end- stage renal disease currently on hemodialysis CABG. Now admitted with altered mental status. Facial palsy. Nonspecific neurological problems. Improving mentally and medically. Will hold of the feeding tonight. We will repeat the CT scan of the abdomen and pelvis to evaluate any localized fluid / hamatoma in the abdominal area. Possibly resume the feeding tomorrow. Evaluation by hospital social worker for nursing rehab placement. Objective - Vital Signs/Intake and Output Vital Signs (last 24 hours): Temp Pulse Resp BP Pulse Ox 97.5 F L 67 20 148/65 98 08/13/17 21:50 08/13/17 21:50 08/13/17 21:50 08/13/17 23:20 08/13/17 21:50 - Medications Medications: Current Medications Acetaminophen (Tylenol 325mg Tab) 650 mg PO Q6 PRN PRN Reason: Fever >100.4 F Last Admin: 08/13/17 17:55 Dose: 650 mg Albuterol/Ipratropium (Duoneb 3 Mg/0.5 Mg (3 Ml) Ud) 3 ml INH RQ4 [facility] Last Admin: 08/13/17 23:39 Dose: Not Given Artificial Tears (Artificial Tears) 0 ml OD Q3H PRN PRN Reason: Dry eyes Last Admin: 08/11/17 14:35 Dose: 1 drop Ascorbic Acid (Vitamin C 500 Mg Tab) 500 mg PO DAILY [facility] Last Admin: 08/13/17 10:38 Dose: 500 mg Calcium Acetate (Phoslo) 667 mg PO TIDCC [facility] Last Admin: 08/13/17 17:51 Dose: 667 mg Carvedilol (Coreg) 12.5 mg PO BID [facility] Last Admin: 08/13/17 18:39 Dose: Not Given Clopidogrel Bisulfate (Plavix) 75 mg PO DAILY [facility] Last Admin: 08/13/17 10:53 Dose: 75 mg Epoetin Kumar (Procrit) 10,000 unit IV MWF [facility] Last Admin: 08/11/17 16:27 Dose: 10,000 unit Famotidine (Pepcid) 20 mg GT BID [facility] Last Admin: 08/13/17 17:51 Dose: 20 mg Folic Acid (Folic Acid) 1 mg PO DAILY [facility] Last Admin: 08/13/17 10:39 Dose: 1 mg Piperacillin Sod/Tazobactam (Sod 3.375 gm/ Sodium Chloride) 100 mls @ 200 mls/ hr IVPB Q8H [facility] PRN Reason: Protocol Last Admin: 08/13/17 21:17 Dose: 200 mls/hr Insulin Human Regular (Novolin R) 0 unit SC Q6 [facility] PRN Reason: Protocol Last Admin: 08/13/17 17:52 Dose: 4 units Levetiracetam (Keppra) 250 mg PEG BID [facility] Last Admin: 08/13/17 17:51 Dose: 250 mg Levothyroxine Sodium (Synthroid) 50 mcg PO DAILY@0630 [facility] Last Admin: 08/13/17 05:34 Dose: 50 mcg Multivitamins/Vitamin C (Multi-Delyn Liquid) 5 ml PO DAILY [facility] Last Admin: 08/13/17 10:59 Dose: 5 ml Thiamine HCl (Vitamin B1 Tab) 100 mg PO DAILY [facility] Last Admin: 08/13/17 10:37 Dose: 100 mg Zinc Sulfate (Zinc Sulfate 220 Mg Cap) 220 mg PO DAILY [facility] Last Admin: 08/13/17 10:39 Dose: 220 mg - Labs Labs: 08/13/17 06:51 08/13/17 06:51 PT 12.0 SECONDS (9.7-12.2) 08/10/17 11:16 INR 1.1 08/10/17 11:16 APTT 27 SECONDS (21-34) 07/31/17 06:21
[2017-08-14] MEDS: (Novolin R) Insulin Human Regular 100 units/ml vial SC SCH ×4 (00:43→17:43)
[2017-08-14] MEDS: Epoetin Alfa 10,000 unit/ml Dialysis IV SCH (01:10)
[2017-08-14] MEDS: Albuterol-Ipratrop 3 mg / 0.5 (3 ml) UD INH SCH ×6 (03:41→23:43)
[2017-08-14] MEDS: Levothyroxine 50 MCG TAB PO SCH (06:21)
[2017-08-14] MEDS: Piperacillin/Tazobact 3.375 GM in Sodium Chloride 100 ML IVPB SCH ×3 (06:21→19:20)
[2017-08-14 07:47] LABS: BASO # 0.1 K/uL (0.0-0.2); BASO % 0.7 % (0.0-2.0); EOS # 0.2 K/uL (0.0-0.7); EOS % 3.2 % (0.0-4.0); LYMPH # 0.5 K/uL (1.0-4.3); LYMPH % 7.1 % (20.0-40.0); MEAN CELL VOLUME 95.9 fL (80.0-94.0); MEAN CORPUSCULAR HGB CONC 33.4 g/dL (33.0-37.0); MEAN PLATELET VOLUME 7.9 fL (7.2-11.7); MONO # 0.8 K/uL (0.0-0.8); MONO % 11.5 % (0.0-10.0); NEUT # 5.6 K/uL (1.8-7.0); NEUT % 77.5 % (50.0-75.0); NRBC % 0.1 % (0.0-2.0); PLATELET COUNT 167 K/uL (130-400); RBC 2.24 Mil/uL (4.40-5.90); RED CELL DISTRIBUTION WIDTH 20.5 % (11.5-14.5); WHITE BLOOD COUNT 7.3 K/uL (4.8-10.8)
[2017-08-14 08:00] LABS: HEMOGLOBIN 7.2 g/dL (12.0-18.0)
[2017-08-14 08:09] LABS: ALB/GLOB RATIO 0.7 (1.0-2.1); ALBUMIN 2.2 g/dL (3.5-5.0); CALCIUM 6.6 mg/dl (8.6-10.4)
--- NOTE | 2017-08-14 09:27 | CP.PCM.PN ---
Subjective - Date & Time of Evaluation Date of Evaluation: 08/14/17 Time of Evaluation: 09:24 - Subjective Subjective: for CT abdomen- possible hematoma reported more alert now, BP still elevated Feeds on hold due to CT scan being planned labs reviewed- much different fro 08/13 Objective - Vital Signs/Intake and Output Vital Signs (last 24 hours): Temp Pulse Resp BP Pulse Ox 98.1 F 60 20 170/71 H 100 08/14/17 07:00 08/14/17 07:00 08/14/17 07:00 08/14/17 07:00 08/14/17 07:00 Intake and Output: 08/14/17 08/14/17 06:59 18:59 Output Total 30 Balance -30 - Medications Medications: Current Medications Acetaminophen (Tylenol 325mg Tab) 650 mg PO Q6 PRN PRN Reason: Fever >100.4 F Last Admin: 08/13/17 17:55 Dose: 650 mg Albuterol/Ipratropium (Duoneb 3 Mg/0.5 Mg (3 Ml) Ud) 3 ml INH RQ4 [facility] Last Admin: 08/14/17 07:25 Dose: 3 ml Artificial Tears (Artificial Tears) 0 ml OD Q3H PRN PRN Reason: Dry eyes Last Admin: 08/11/17 14:35 Dose: 1 drop Ascorbic Acid (Vitamin C 500 Mg Tab) 500 mg PO DAILY [facility] Last Admin: 08/13/17 10:38 Dose: 500 mg Calcium Acetate (Phoslo) 667 mg PO TIDCC [facility] Last Admin: 08/14/17 08:23 Dose: 667 mg Carvedilol (Coreg) 12.5 mg PO BID [facility] Last Admin: 08/13/17 18:39 Dose: Not Given Clopidogrel Bisulfate (Plavix) 75 mg PO DAILY [facility] Last Admin: 08/13/17 10:53 Dose: 75 mg Epoetin Kumar (Procrit) 10,000 unit SC MWF [facility] Famotidine (Pepcid) 20 mg GT BID [facility] Last Admin: 08/13/17 17:51 Dose: 20 mg Folic Acid (Folic Acid) 1 mg PO DAILY [facility] Last Admin: 08/13/17 10:39 Dose: 1 mg Piperacillin Sod/Tazobactam (Sod 3.375 gm/ Sodium Chloride) 100 mls @ 200 mls/ hr IVPB Q8H [facility] PRN Reason: Protocol Insulin Human Regular (Novolin R) 0 unit SC Q6 [facility] PRN Reason: Protocol Last Admin: 08/14/17 06:50 Dose: Not Given Levetiracetam (Keppra) 250 mg PEG BID [facility] Last Admin: 08/13/17 17:51 Dose: 250 mg Levothyroxine Sodium (Synthroid) 50 mcg PO DAILY@0630 [facility] Last Admin: 08/14/17 06:21 Dose: 50 mcg Multivitamins/Vitamin C (Multi-Delyn Liquid) 5 ml PO DAILY [facility] Last Admin: 08/13/17 10:59 Dose: 5 ml Thiamine HCl (Vitamin B1 Tab) 100 mg PO DAILY [facility] Last Admin: 08/13/17 10:37 Dose: 100 mg Zinc Sulfate (Zinc Sulfate 220 Mg Cap) 220 mg PO DAILY [facility] Last Admin: 08/13/17 10:39 Dose: 220 mg - Labs Labs: 08/14/17 07:00 08/14/17 07:00 PT 12.0 SECONDS (9.7-12.2) 08/10/17 11:16 INR 1.1 08/10/17 11:16 APTT 27 SECONDS (21-34) 07/31/17 06:21 - Constitutional Appears: No Acute Distress, Chronically Ill - Head Exam Head Exam: ATRAUMATIC, NORMAL INSPECTION - Eye Exam Eye Exam: EOMI, Normal appearance - Neck Exam Neck Exam: Normal Inspection. absent: Tenderness - Respiratory Exam Respiratory Exam: Clear to Ausculation Bilateral, NORMAL BREATHING PATTERN - Cardiovascular Exam Cardiovascular Exam: REGULAR RHYTHM, +S1 - GI/Abdominal Exam GI & Abdominal Exam: Soft, Tenderness - Extremities Exam Extremities Exam: Normal Inspection. absent: Tenderness - Neurological Exam Neurological Exam: Alert, CN II-XII Intact - Skin Skin Exam: Dry, Warm Assessment and Plan (1) TIA (transient ischemic attack) Status: Acute (2) ESRD (end stage renal disease) Status: Acute (3) Heart block AV complete Status: Acute (4) Type 2 diabetes mellitus with diabetic nephropathy Status: Acute - Assessment and Plan (Free Text) Plan: increase BP meds dosage change to SQ EPO repeat chemistries dialysis MWF
[2017-08-14 09:42] LABS: ANISOCYTOSIS MODERATE; BANDS 1 % (0-2); EOSINOPHIL 2 % (0-4); LYMPHOCYTE 9 % (20-40); MONOCYTE 10 % (0-10); NEUTROPHIL 78 % (50-75); PLATELET ESTIMATE NORMAL (NORMAL); TOTAL CELLS COUNTED 100
[2017-08-14 09:43] LABS: OVALOCYTES SLIGHT
[2017-08-14] MEDS: Multiple Vitamins Oral Solution PO SCH (10:58)
[2017-08-14] MEDS: levETIRAcetam 100 mg/ml (5ml) Oral Syringe PEG SCH ×2 (10:59→17:43)
[2017-08-14 11:47] LABS: ALB/GLOB RATIO 0.9 (1.0-2.1); ALBUMIN 3.2 g/dL (3.5-5.0); CALCIUM 8.6 mg/dl (8.6-10.4)
--- NOTE | 2017-08-14 13:30 | CT ---
PROCEDURE: CT Abdomen and Pelvis without intravenous contrast HISTORY: left upper quandrant pain hematoma COMPARISON: None. TECHNIQUE: Contiguous images were obtained from the domes of the diaphragms to the upper thighs without the administration of intravenous contrast. Oral contrast was administered. Radiation dose: Total exam DLP = 828.6 mGy-cm. This CT exam was performed using one or more of the following dose reduction techniques: Automated exposure control, adjustment of the mA and/or kV according to patient size, and/or use of iterative reconstruction technique. FINDINGS: LOWER THORAX: Cardiomegaly. Partially imaged implanted cardiac device leads. Coronary arterial and valvular calcifications. Small bilateral pleural effusions with subjacent atelectasis. LIVER: Unremarkable. No gross lesion or ductal dilatation. GALLBLADDER AND BILE DUCTS: Unremarkable. PANCREAS: Unremarkable. No gross lesion or ductal dilatation. SPLEEN: Unremarkable. ADRENALS: Unremarkable. No mass. KIDNEYS AND URETERS: Atrophic kidneys. Punctate nonobstructive left upper/interpolar calculi. No hydronephrosis. No solid mass. VASCULATURE: Calcific atherosclerosis. No aortic aneurysm. BOWEL: Indwelling gastrostomy tube. No obstruction. No gross mural thickening. APPENDIX: No findings to suggest acute appendicitis. PERITONEUM: Tiny fat containing umbilical hernia. Small bilateral fat containing inguinal hernias. Trace perihepatic and perisplenic ascites. No free air. LYMPH NODES: Unremarkable. No enlarged lymph nodes. BLADDER: Distended high-density material. REPRODUCTIVE: Unremarkable. BONES: No acute fracture. 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 IMPRESSION: Trace perihepatic and. Splenic ascites. Small bilateral pleural effusions. Punctate nonobstructive left nephrolithiasis. Urinary bladder distended with high density material, nonspecific. Additional findings as above.
--- NOTE | 2017-08-14 19:29 | CP.PCM.PN ---
Subjective - Date & Time of Evaluation Date of Evaluation: 08/14/17 Time of Evaluation: 19:21 - Subjective Subjective: Patient today feeling better. Patient this morning was awake and responding. Yesterday last night the patient is a hemodialysis. The hemoglobin is 7.7 today. No active bleeding noted. Patient was on hold for feeding, and had a CAT scan of the abdomen today CT scan of the abdomen showing no evidence of any acute pathology. Perisplenic, perihepatic ascites present. Also urinary distention in the bladder noted On examination: Vital signs stable. Chest bilateral good air entry no wheezing or rales noted irregular heart sound abdomen soft minimal tenderness in the left upper quadrant No pedal edema Assessment and recommendation: 77-year-old male with a history of CAD hypertension CABG end-stage renal disease on dialysis. Metabolic consult probably improving. Right-sided facial nerve injury, paralysis noted. Stable otherwise. Continue the physical therapy. Repeat CBC in the morning. If stable patient can be discharged Rehab tomorrow. Objective - Vital Signs/Intake and Output Vital Signs (last 24 hours): Temp Pulse Resp BP Pulse Ox 98.5 F 80 20 154/66 H 98 08/14/17 15:50 08/14/17 15:50 08/14/17 15:50 08/14/17 17:43 08/14/17 15:50 Intake and Output: 08/14/17 08/15/17 18:59 06:59 Intake Total 500 Balance 500 - Medications Medications: Current Medications Acetaminophen (Tylenol 325mg Tab) 650 mg PO Q6 PRN PRN Reason: Fever >100.4 F Last Admin: 08/13/17 17:55 Dose: 650 mg Albuterol/Ipratropium (Duoneb 3 Mg/0.5 Mg (3 Ml) Ud) 3 ml INH RQ4 [facility] Last Admin: 08/14/17 16:42 Dose: 3 ml Artificial Tears (Artificial Tears) 0 ml OD Q3H PRN PRN Reason: Dry eyes Last Admin: 08/11/17 14:35 Dose: 1 drop Ascorbic Acid (Vitamin C 500 Mg Tab) 500 mg PO DAILY [facility] Last Admin: 08/14/17 10:58 Dose: 500 mg Calcium Acetate (Phoslo) 667 mg PO TIDCC [facility] Last Admin: 08/14/17 17:43 Dose: 667 mg Carvedilol (Coreg) 25 mg PO BID [facility] Last Admin: 08/14/17 17:43 Dose: 25 mg Clopidogrel Bisulfate (Plavix) 75 mg PO DAILY [facility] Last Admin: 08/14/17 10:59 Dose: 75 mg Epoetin Kumar (Procrit) 10,000 unit SC MWF [facility] Famotidine (Pepcid) 20 mg GT BID [facility] Last Admin: 08/14/17 17:43 Dose: 20 mg Folic Acid (Folic Acid) 1 mg PO DAILY [facility] Last Admin: 08/14/17 10:58 Dose: 1 mg Piperacillin Sod/Tazobactam (Sod 3.375 gm/ Sodium Chloride) 100 mls @ 200 mls/ hr IVPB Q8H [facility] PRN Reason: Protocol Last Admin: 08/14/17 10:58 Dose: 200 mls/hr Insulin Human Regular (Novolin R) 0 unit SC Q6 [facility] PRN Reason: Protocol Last Admin: 08/14/17 17:43 Dose: 2 units Levetiracetam (Keppra) 250 mg PEG BID [facility] Last Admin: 08/14/17 17:43 Dose: 250 mg Levothyroxine Sodium (Synthroid) 50 mcg PO DAILY@0630 [facility] Last Admin: 08/14/17 06:21 Dose: 50 mcg Multivitamins/Vitamin C (Multi-Delyn Liquid) 5 ml PO DAILY [facility] Last Admin: 08/14/17 10:58 Dose: 5 ml Thiamine HCl (Vitamin B1 Tab) 100 mg PO DAILY [facility] Last Admin: 08/14/17 11:00 Dose: 100 mg Zinc Sulfate (Zinc Sulfate 220 Mg Cap) 220 mg PO DAILY [facility] Last Admin: 08/14/17 10:58 Dose: 220 mg - Labs Labs: 08/14/17 07:00 08/14/17 11:13 PT 12.0 SECONDS (9.7-12.2) 08/10/17 11:16 INR 1.1 08/10/17 11:16 APTT 27 SECONDS (21-34) 07/31/17 06:21
[2017-08-15] MEDS: (Novolin R) Insulin Human Regular 100 units/ml vial SC SCH ×5 (00:40→18:22)
[2017-08-15] MEDS: Piperacillin/Tazobact 3.375 GM in Sodium Chloride 100 ML IVPB SCH ×3 (03:10→18:09)
[2017-08-15] MEDS: Albuterol-Ipratrop 3 mg / 0.5 (3 ml) UD INH SCH ×3 (03:11→13:32)
[2017-08-15] MEDS: Levothyroxine 50 MCG TAB PO SCH (06:04)
[2017-08-15 07:02] LABS: BASO # 0.1 K/uL (0.0-0.2); BASO % 0.6 % (0.0-2.0); EOS # 0.4 K/uL (0.0-0.7); EOS % 3.6 % (0.0-4.0); HEMOGLOBIN 9.9 g/dL (12.0-18.0); LYMPH # 1.2 K/uL (1.0-4.3); LYMPH % 11.3 % (20.0-40.0); MEAN CELL VOLUME 96.5 fL (80.0-94.0); MEAN CORPUSCULAR HEMOGLOBIN 31.7 pg (27.0-31.0); MEAN CORPUSCULAR HGB CONC 32.8 g/dL (33.0-37.0); MEAN PLATELET VOLUME 8.2 fL (7.2-11.7); MONO # 1.3 K/uL (0.0-0.8); MONO % 12.4 % (0.0-10.0); NEUT # 7.4 K/uL (1.8-7.0); NEUT % 72.1 % (50.0-75.0); NRBC % 0.1 % (0.0-2.0); RBC 3.13 Mil/uL (4.40-5.90); RED CELL DISTRIBUTION WIDTH 20.9 % (11.5-14.5); WHITE BLOOD COUNT 10.2 K/uL (4.8-10.8)
[2017-08-15] MEDS ORDERED: Epoetin Alfa 10,000 unit/ml Dialysis SC SCH (09:00)
[2017-08-15] MEDS: levETIRAcetam 100 mg/ml (5ml) Oral Syringe PEG SCH ×2 (09:28→18:10)
[2017-08-15] MEDS: Multiple Vitamins Oral Solution PO SCH (09:28)
--- NOTE | 2017-08-15 13:56 | CP.PCM.PN ---
Subjective - Date & Time of Evaluation Date of Evaluation: 08/15/17 Time of Evaluation: 13:53 - Subjective Subjective: s/p dialysis now- Uf 2560ml BP better controlled more responsive than before no new complaints has been on PEG feeds Objective - Vital Signs/Intake and Output Vital Signs (last 24 hours): Temp Pulse Resp BP Pulse Ox 97.1 F L 66 18 155/68 H 98 08/15/17 09:10 08/15/17 09:10 08/15/17 09:10 08/15/17 12:50 08/15/17 07:00 Intake and Output: 08/15/17 08/15/17 06:59 18:59 Intake Total 350 Balance 350 - Medications Medications: Current Medications Acetaminophen (Tylenol 325mg Tab) 650 mg PO Q6 PRN PRN Reason: Fever >100.4 F Last Admin: 08/13/17 17:55 Dose: 650 mg Artificial Tears (Artificial Tears) 0 ml OD Q3H PRN PRN Reason: Dry eyes Last Admin: 08/11/17 14:35 Dose: 1 drop Ascorbic Acid (Vitamin C 500 Mg Tab) 500 mg PO DAILY [facility] Last Admin: 08/15/17 09:28 Dose: Not Given Calcium Acetate (Phoslo) 667 mg PO TIDCC [facility] Last Admin: 08/15/17 08:54 Dose: Not Given Carvedilol (Coreg) 25 mg PO BID [facility] Last Admin: 08/15/17 09:28 Dose: Not Given Clopidogrel Bisulfate (Plavix) 75 mg PO DAILY [facility] Last Admin: 08/15/17 09:28 Dose: Not Given Epoetin Kumar (Procrit) 10,000 unit IV MWF [facility] Famotidine (Pepcid) 20 mg GT DAILY [facility] Folic Acid (Folic Acid) 1 mg PO DAILY [facility] Last Admin: 08/15/17 09:28 Dose: Not Given Piperacillin Sod/Tazobactam (Sod 3.375 gm/ Sodium Chloride) 100 mls @ 200 mls/ hr IVPB Q8H [facility] PRN Reason: Protocol Last Admin: 08/15/17 03:10 Dose: 200 mls/hr Insulin Human Regular (Novolin R) 0 unit SC Q6 [facility] PRN Reason: Protocol Last Admin: 08/15/17 07:09 Dose: 2 units Levetiracetam (Keppra) 250 mg PEG BID [facility] Last Admin: 08/15/17 09:28 Dose: Not Given Levothyroxine Sodium (Synthroid) 50 mcg PO DAILY@0630 [facility] Last Admin: 08/15/17 06:04 Dose: 50 mcg Multivitamins/Vitamin C (Multi-Delyn Liquid) 5 ml PO DAILY [facility] Last Admin: 08/15/17 09:28 Dose: Not Given Thiamine HCl (Vitamin B1 Tab) 100 mg PO DAILY [facility] Last Admin: 08/15/17 09:28 Dose: Not Given Zinc Sulfate (Zinc Sulfate 220 Mg Cap) 220 mg PO DAILY [facility] Last Admin: 08/15/17 09:29 Dose: Not Given - Labs Labs: 08/15/17 06:52 08/14/17 11:13 PT 12.0 SECONDS (9.7-12.2) 08/10/17 11:16 INR 1.1 08/10/17 11:16 APTT 27 SECONDS (21-34) 07/31/17 06:21 - Constitutional Appears: No Acute Distress, Chronically Ill - Head Exam Head Exam: ATRAUMATIC, NORMAL INSPECTION - Eye Exam Eye Exam: EOMI, Normal appearance - Neck Exam Neck Exam: Normal Inspection. absent: Tenderness - Respiratory Exam Respiratory Exam: Clear to Ausculation Bilateral, NORMAL BREATHING PATTERN - Cardiovascular Exam Cardiovascular Exam: REGULAR RHYTHM, +S1 - GI/Abdominal Exam GI & Abdominal Exam: Soft. absent: Tenderness - Extremities Exam Extremities Exam: Normal Inspection. absent: Tenderness - Neurological Exam Neurological Exam: Altered - Skin Skin Exam: Dry, Warm Assessment and Plan (1) TIA (transient ischemic attack) Status: Acute (2) ESRD (end stage renal disease) Status: Acute (3) Heart block AV complete Status: Acute (4) Type 2 diabetes mellitus with diabetic nephropathy Status: Acute - Assessment and Plan (Free Text) Plan: repeat dialysis 08/16 prior to planned discharge outpt dialysis TTS PEG feeds
--- NOTE | 2017-08-15 22:10 | CP.PCM.PN ---
Subjective - Date & Time of Evaluation Date of Evaluation: 08/15/17 Time of Evaluation: 22:09 - Subjective Subjective: Patient is morning was sleepy. But he is awake and responding otherwise. Family was at bedside this morning. Hemoglobin is better today. No chest pain or shortness of breath On examination: Vital signs stable. Chest bilateral good air entry noted. Regular heart sound noted. Nontender abdomen. No pedal edema noted Assessment and recommendation: 77-year-old male with history of CAD, hypertension, CABG, end-stage renal disease and currently on hemodialysis. Patient most likely developed a metabolic encephalopathy, probably improving at this time. He also has a right-sided facial nerve palsy. We will continue to monitor. Hemoglobin is better Possibly he will be getting short hemodialysis tomorrow and he will be discharged rehab. Spoke to the family. We will follow the patient Objective - Vital Signs/Intake and Output Vital Signs (last 24 hours): Temp Pulse Resp BP Pulse Ox 98.7 F 78 20 183/70 H 98 08/15/17 15:00 08/15/17 15:00 08/15/17 15:00 08/15/17 18:10 08/15/17 15:00 Intake and Output: 08/15/17 08/16/17 18:59 06:59 Output Total 1 Balance -1 - Medications Medications: Current Medications Acetaminophen (Tylenol 325mg Tab) 650 mg PO Q6 PRN PRN Reason: Fever >100.4 F Last Admin: 08/13/17 17:55 Dose: 650 mg Artificial Tears (Artificial Tears) 0 ml OD Q3H PRN PRN Reason: Dry eyes Last Admin: 08/11/17 14:35 Dose: 1 drop Ascorbic Acid (Vitamin C 500 Mg Tab) 500 mg PO DAILY [facility] Last Admin: 08/15/17 09:28 Dose: Not Given Calcium Acetate (Phoslo) 667 mg PO TIDCC [facility] Last Admin: 08/15/17 18:10 Dose: 667 mg Carvedilol (Coreg) 25 mg PO BID [facility] Last Admin: 08/15/17 18:10 Dose: 25 mg Clopidogrel Bisulfate (Plavix) 75 mg PO DAILY [facility] Last Admin: 08/15/17 09:28 Dose: Not Given Epoetin Kumar (Procrit) 10,000 [place] [facility] [place] Famotidine (Pepcid) 20 mg GT DAILY [facility] Last Admin: 08/15/17 14:32 Dose: Not Given Folic Acid (Folic Acid) 1 mg PO DAILY [facility] Last Admin: 08/15/17 09:28 Dose: Not Given Piperacillin Sod/Tazobactam (Sod 3.375 gm/ Sodium Chloride) 100 mls @ 200 mls/ hr IVPB Q8H [facility] PRN Reason: Protocol Last Admin: 08/15/17 18:09 Dose: 200 mls/hr Insulin Human Regular (Novolin R) 0 unit SC Q6 [facility] PRN Reason: Protocol Last Admin: 08/15/17 18:22 Dose: 4 units Levetiracetam (Keppra) 250 mg PEG BID [facility] Last Admin: 08/15/17 18:10 Dose: 250 mg Levothyroxine Sodium (Synthroid) 50 mcg PO DAILY@0630 [facility] Last Admin: 08/15/17 06:04 Dose: 50 mcg Multivitamins/Vitamin C (Multi-Delyn Liquid) 5 ml PO DAILY [facility] Last Admin: 08/15/17 09:28 Dose: Not Given Thiamine HCl (Vitamin B1 Tab) 100 mg PO DAILY [facility] Last Admin: 08/15/17 09:28 Dose: Not Given Zinc Sulfate (Zinc Sulfate 220 Mg Cap) 220 mg PO DAILY [facility] Last Admin: 08/15/17 09:29 Dose: Not Given - Labs Labs: 08/15/17 06:52 08/14/17 11:13 PT 12.0 SECONDS (9.7-12.2) 08/10/17 11:16 INR 1.1 08/10/17 11:16 APTT 27 SECONDS (21-34) 07/31/17 06:21
[2017-08-16] MEDS: (Novolin R) Insulin Human Regular 100 units/ml vial SC SCH ×4 (01:45→19:00)
[2017-08-16] MEDS: Piperacillin/Tazobact 3.375 GM in Sodium Chloride 100 ML IVPB SCH ×3 (02:44→17:54)
[2017-08-16] MEDS: Levothyroxine 50 MCG TAB PO SCH (05:37)
[2017-08-16 09:37] VITALS: O2SAT 100
[2017-08-16] MEDS: levETIRAcetam 100 mg/ml (5ml) Oral Syringe PEG SCH ×2 (10:14→19:01)
[2017-08-16] MEDS: Multiple Vitamins Oral Solution PO SCH (10:14)
--- NOTE | 2017-08-16 10:19 | CP.PCM.PN ---
Subjective - Date & Time of Evaluation Date of Evaluation: 08/16/17 Time of Evaluation: 10:17 - Subjective Subjective: seen at dialysis tolerating treatment well BP still labile- generally better on internittent PEG feeds arousable as before Objective - Vital Signs/Intake and Output Vital Signs (last 24 hours): Temp Pulse Resp BP Pulse Ox 97.9 F 65 16 116/70 100 08/16/17 09:15 08/16/17 09:15 08/16/17 09:15 08/16/17 09:30 08/16/17 09:15 Intake and Output: 08/16/17 08/16/17 06:59 18:59 Intake Total 1050 Output Total 1 Balance 1049 - Medications Medications: Current Medications Acetaminophen (Tylenol 325mg Tab) 650 mg PO Q6 PRN PRN Reason: Fever >100.4 F Last Admin: 08/13/17 17:55 Dose: 650 mg Artificial Tears (Artificial Tears) 0 ml OD Q3H PRN PRN Reason: Dry eyes Last Admin: 08/11/17 14:35 Dose: 1 drop Ascorbic Acid (Vitamin C 500 Mg Tab) 500 mg PO DAILY [facility] Last Admin: 08/16/17 10:14 Dose: Not Given Calcium Acetate (Phoslo) 667 mg PO TIDCC [facility] Last Admin: 08/16/17 10:14 Dose: Not Given Carvedilol (Coreg) 25 mg PO BID [facility] Last Admin: 08/16/17 10:14 Dose: Not Given Clopidogrel Bisulfate (Plavix) 75 mg PO DAILY [facility] Last Admin: 08/16/17 10:14 Dose: Not Given Epoetin Kumar (Procrit) 10,000 unit IV [facility] [place] Famotidine (Pepcid) 20 mg GT DAILY [facility] Last Admin: 08/16/17 10:14 Dose: Not Given Folic Acid (Folic Acid) 1 mg PO DAILY [facility] Last Admin: 08/16/17 10:14 Dose: Not Given Piperacillin Sod/Tazobactam (Sod 3.375 gm/ Sodium Chloride) 100 mls @ 200 mls/ hr IVPB Q8H JAYLA PRN Reason: Protocol Last Admin: 08/16/17 02:44 Dose: 200 mls/hr Insulin Human Regular (Novolin R) 0 unit SC Q6 JAYLA PRN Reason: Protocol Last Admin: 07/07/18 06:56 Dose: 2 units Levetiracetam (Keppra) 250 mg PEG BID [facility] Last Admin: 08/16/17 10:14 Dose: Not Given Levothyroxine Sodium (Synthroid) 50 mcg PO DAILY@0630 [facility] Last Admin: 08/16/17 05:37 Dose: 50 mcg Multivitamins/Vitamin C (Multi-Delyn Liquid) 5 ml PO DAILY [facility] Last Admin: 08/16/17 10:14 Dose: Not Given Thiamine HCl (Vitamin B1 Tab) 100 mg PO DAILY [facility] Last Admin: 08/16/17 10:14 Dose: Not Given Zinc Sulfate (Zinc Sulfate 220 Mg Cap) 220 mg PO DAILY [facility] Last Admin: 08/16/17 10:14 Dose: Not Given - Labs Labs: 08/15/17 06:52 08/14/17 11:13 PT 12.0 SECONDS (9.7-12.2) 08/10/17 11:16 INR 1.1 08/10/17 11:16 APTT 27 SECONDS (21-34) 07/31/17 06:21 - Constitutional Appears: No Acute Distress, Chronically Ill - Head Exam Head Exam: ATRAUMATIC, NORMAL INSPECTION - Eye Exam Eye Exam: EOMI, Normal appearance - Neck Exam Neck Exam: Normal Inspection. absent: Tenderness - Respiratory Exam Respiratory Exam: Clear to Ausculation Bilateral, NORMAL BREATHING PATTERN - Cardiovascular Exam Cardiovascular Exam: REGULAR RHYTHM, +S1 - GI/Abdominal Exam GI & Abdominal Exam: Soft. absent: Tenderness - Extremities Exam Extremities Exam: Normal Inspection. absent: Tenderness - Neurological Exam Neurological Exam: Alert, CN II-XII Intact - Skin Skin Exam: Dry, Warm Assessment and Plan (1) TIA (transient ischemic attack) Status: Acute (2) ESRD (end stage renal disease) Status: Acute (3) Heart block AV complete Status: Acute (4) Type 2 diabetes mellitus with diabetic nephropathy Status: Acute - Assessment and Plan (Free Text) Plan: dialysis now Then MWF schedule PEG feeds Monitor HTN outpt placement pending
--- NOTE | 2017-08-16 15:56 | CP.PCM.DIS ---
Provider - Provider Date of Admission: 07/13/17 10:40 Attending physician: Eren Elizabeth MD Time Spent in preparation of Discharge (in minutes): 45 Hospital Course - Lab Results Lab Results: Micro Results 08/09/17 15:10 Blood Blood Culture - Final NO GROWTH AFTER 5 DAYS 08/09/17 15:10 Blood Gram Stain - Final TEST NOT PERFORMED 08/09/17 13:16 Blood Blood Culture - Final NO GROWTH AFTER 5 DAYS 08/09/17 13:16 Blood Gram Stain - Final TEST NOT PERFORMED 08/02/17 10:41 Blood-Venous Blood Culture - Final NO GROWTH AFTER 5 DAYS 08/02/17 10:41 Blood-Venous Blood Culture - Final NO GROWTH AFTER 5 DAYS 08/02/17 10:41 Blood-Venous Gram Stain - Final TEST NOT PERFORMED 08/05/17 15:54 Naris MRSA Culture - Final MRSA NOT DETECTED 07/23/17 06:09 Blood-Thru Central Line Blood Culture - Final NO GROWTH AFTER 5 DAYS 07/23/17 06:09 Blood-Thru Central Line Gram Stain - Final TEST NOT PERFORMED 07/24/17 08:11 Sputum Induced Gram Stain - Final 07/24/17 08:11 Sputum Induced Sputum Culture - Final NORMAL ORAL ADILSON 07/18/17 11:10 Blood Blood Culture - Final NO GROWTH AFTER 5 DAYS 07/14/17 11:26 Blood Blood Culture - Final NO GROWTH AFTER 5 DAYS 07/14/17 11:26 Blood Gram Stain - Final TEST NOT PERFORMED 07/15/17 22:20 Nose MRSA Culture - Final MRSA NOT DETECTED 07/14/17 06:18 Naris MRSA Culture (Admit) - Final MRSA NOT DETECTED Most Recent Lab Values WBC 10.2 K/uL (4.8-10.8) 08/15/17 06:52 RBC 3.13 Mil/uL (4.40-5.90) L 08/15/17 06:52 Hgb 9.9 g/dL (12.0-18.0) L D 08/15/17 06:52 Hct 30.2 % (35.0-51.0) L 08/15/17 06:52 MCV 96.5 fL (80.0-94.0) H 08/15/17 06:52 MCH 31.7 pg (27.0-31.0) H 08/15/17 06:52 MCHC 32.8 g/dL (33.0-37.0) L 08/15/17 06:52 RDW 20.9 % (11.5-14.5) H 08/15/17 06:52 Plt Count 236 K/uL (130-400) 08/15/17 06:52 MPV 8.2 fL (7.2-11.7) 08/15/17 06:52 Neut % (Auto) 72.1 % (50.0-75.0) 08/15/17 06:52 Lymph % (Auto) 11.3 % (20.0-40.0) L 08/15/17 06:52 Crook % (Auto) 12.4 % (0.0-10.0) H 08/15/17 06:52 Eos % (Auto) 3.6 % (0.0-4.0) 08/15/17 06:52 Baso % (Auto) 0.6 % (0.0-2.0) 08/15/17 06:52 Neut # (Auto) 7.4 K/uL (1.8-7.0) H 08/15/17 06:52 Lymph # (Auto) 1.2 K/uL (1.0-4.3) 08/15/17 06:52 Crook # (Auto) 1.3 K/uL (0.0-0.8) H 08/15/17 06:52 Eos # (Auto) 0.4 K/uL (0.0-0.7) 08/15/17 06:52 Baso # (Auto) 0.1 K/uL (0.0-0.2) 08/15/17 06:52 Neutrophils % (Manual) 78 % (50-75) H 08/14/17 07:00 Band Neutrophils % 1 % (0-2) 08/14/17 07:00 Lymphocytes % (Manual) 9 % (20-40) L 08/14/17 07:00 Reactive Lymphs % 1 % (0-0) H 08/13/17 06:51 Monocytes % (Manual) 10 % (0-10) 08/14/17 07:00 Eosinophils % (Manual) 2 % (0-4) 08/14/17 07:00 Basophils % (Manual) 1 % (0-2) 07/25/17 05:00 Metamyelocytes % 1 % (0-0) H 08/12/17 07:45 Nucleated RBC % 3 % (0-0) H 07/25/17 05:00 Differential Comment 07/29/17 13:08 Toxic Granulation Present 08/13/17 06:51 Platelet Estimate Normal (NORMAL) 08/14/17 07:00 Large Platelets Present 07/20/17 06:38 Giant Platelets Present 07/20/17 06:38 Polychromasia Slight 08/13/17 06:51 Hypochromasia (manual) Slight 08/13/17 06:51 Poikilocytosis (manual Slight 07/30/17 05:56 Anisocytosis (manual) Moderate 08/14/17 07:00 Microcytosis (manual) Slight 07/30/17 05:56 Macrocytosis (manual) Slight 08/13/17 06:51 Target Cells Slight 07/22/17 07:47 Ovalocytes Slight 08/14/17 07:00 ESR 132 mm/hr (0-15) H 07/17/17 07:41 PT 12.0 SECONDS (9.7-12.2) 08/10/17 11:16 INR 1.1 08/10/17 11:16 APTT 27 SECONDS (21-34) 07/31/17 06:21 Puncture Site Rba 08/10/17 12:05 pCO2 39 mm/Hg (35-45) 08/10/17 12:05 pO2 88 mm/Hg (80-100) 08/10/17 12:05 HCO3 29.5 mmol/L (21-28) H 08/10/17 12:05 ABG pH 7.49 (7.35-7.45) H 08/10/17 12:05 ABG Total CO2 30.9 mmol/L (22-28) H 08/10/17 12:05 ABG O2 Saturation 99.0 % (95-98) H 08/10/17 12:05 ABG Base Excess 5.9 mmol/L (-2.0-3.0) H 08/10/17 12:05 ABG Hemoglobin 8.7 g/dL (11.7-17.4) L 08/10/17 12:05 ABG Carboxyhemoglobin 2.7 % (0.5-1.5) H 08/10/17 12:05 POC ABG HHb (Measured) 1.0 % (0.0-5.0) 08/10/17 12:05 ABG Methemoglobin 1.2 % (0.0-3.0) 08/10/17 12:05 Navin Test Na 08/10/17 12:05 ABG Potassium 3.4 mmol/L (3.6-5.2) L 07/27/17 05:45 VBG pH 7.40 (7.32-7.43) 07/22/17 07:49 VBG pCO2 43 mmHg (40-60) 07/22/17 07:49 VBG HCO3 25.7 mmol/L 07/22/17 07:49 VBG Total CO2 27.9 mmol/L (22-28) 07/22/17 07:49 VBG O2 Sat (Calc) 90.1 % (40-65) H 07/22/17 07:49 VBG Base Excess 1.5 mmol/L (0.0-2.0) 07/22/17 07:49 VBG Potassium 3.5 mmol/L (3.6-5.2) L 07/22/17 07:49 A-a O2 Difference 42.0 mm/Hg 08/10/17 12:05 Respiratory Index 0.5 08/10/17 12:05 Hgb O2 Saturation 95.1 % (95.0-98.0) 08/10/17 12:05 Sodium 137.0 mmol/l (132-148) 07/27/17 05:45 Chloride 105.0 mmol/L (98-107) 07/27/17 05:45 Glucose 164 mg/dl (75-110) H 07/27/17 05:45 Lactate 1.1 mmol/L (0.7-2.1) 07/27/17 05:45 Liter Flow 2.5 07/18/17 17:50 Vent Mode Prvc 07/27/17 05:45 Mechanical Rate 14 07/27/17 05:45 FiO2 25.0 % 08/10/17 12:05 Tidal Volume 450 07/27/17 05:45 PEEP 5 07/27/17 05:45 Sodium 138 mmol/L (132-148) 08/14/17 11:13 Potassium 4.5 mmol/L (3.6-5.2) 08/14/17 11:13 Chloride 98 mmol/L (98-107) 08/14/17 11:13 Carbon Dioxide 27 mmol/L (22-30) 08/14/17 11:13 Anion Gap 17 (10-20) 08/14/17 11:13 BUN 15 mg/dL (9-20) 08/14/17 11:13 Creatinine 3.6 mg/dL (0.8-1.5) H 08/14/17 11:13 Est GFR ( Amer) 20 08/14/17 11:13 Est GFR (Non-Af Amer) 16 08/14/17 11:13 POC Glucose (mg/dL) 135 mg/dL (65-110) H 08/16/17 11:55 Random Glucose 135 mg/dL (75-110) H 08/14/17 11:13 Hemoglobin A1c 8.4 % (4.2-6.5) H D 07/13/17 10:35 Calcium 8.6 mg/dl (8.6-10.4) 08/14/17 11:13 Phosphorus 2.1 mg/dL (2.5-4.5) L 08/14/17 07:00 Magnesium 1.7 mg/dL (1.6-2.3) 08/14/17 07:00 % Saturation 18 (20-55) L 08/08/17 06:19 Ferritin 1280.0 ng/mL 08/08/17 06:19 Total Bilirubin 0.9 mg/dL (0.2-1.3) 08/14/17 11:13 Direct Bilirubin 0.6 mg/dL (0.0-0.4) H 07/21/17 08:02 AST 31 U/L (17-59) 08/14/17 11:13 ALT 28 U/L (21-72) 08/14/17 11:13 Alkaline Phosphatase 118 U/L (38-126) 08/14/17 11:13 Ammonia < 9 umol/L (9-33) L 07/22/17 07:47 Lactate Dehydrogenase 449 U/L (313-618) 07/21/17 08:02 Troponin I 0.0560 ng/mL (0.00-0.120) 07/13/17 10:35 C-Reactive Protein 41.90 mg/L (0.0-9.9) H 07/17/17 07:41 Total Protein 6.7 g/dL (6.3-8.3) 08/14/17 11:13 Albumin 3.2 g/dL (3.5-5.0) L D 08/14/17 11:13 Globulin 3.5 gm/dL (2.2-3.9) 08/14/17 11:13 Albumin/Globulin Ratio 0.9 (1.0-2.1) L 08/14/17 11:13 Triglycerides 113 mg/dL (0-149) 07/13/17 10:35 Cholesterol 105 mg/dL (0-199) 07/13/17 10:35 LDL Cholesterol Direct 39 mg/dL (0-129) 07/13/17 10:35 HDL Cholesterol 28 mg/dL (30-70) L 07/13/17 10:35 Alpha Fetoprotein 2.0 ng/mL (0.0-7.5) 07/19/17 10:03 Procalcitonin 1.34 NG/ML (0.19-0.49) H 07/20/17 06:38 Free T4 1.46 ng/dL (0.78-2.19) 07/23/17 06:04 TSH 3rd Generation 4.02 mIU/L (0.46-4.68) 07/23/17 06:04 Prolactin 11.3 ng/mL (3.7-17.9) 07/22/17 20:01 PTH Intact Whole Molec 113 pg/mL (14-64) H 08/05/17 06:20 Arterial Blood Potassium 3.4 mmol/L (3.6-5.2) L 07/27/17 05:45 Venous Blood Potassium 3.5 mmol/L (3.6-5.2) L 07/22/17 07:49 Fluid Source Peritoneal 07/18/17 12:57 Fluid Appearance Clear (CLEAR) 07/18/17 12:57 Fluid WBC 1.0 /mm3 (0.0-300.0) 07/18/17 12:57 Fluid RBC 3.0 /mm3 (0.0-0.0) H 07/18/17 12:57 Fluid Tot Cell Count TEST NOT PERFORMED 07/18/17 12:57 Fld Monocyte/Macrophag TEST NOT PERFORMED 07/18/17 12:57 Fluid Comment 07/18/17 12:57 Stool Occult Blood Negative (NEGATIVE) 08/03/17 06:54 Vancomycin Trough 29.7 ug/mL (5.0-10.0) H 07/31/17 06:14 Random Vancomycin 21.0 ug/mL 07/26/17 10:54 IgG 1595.3 mg/dL (700.0-1600.0) 07/19/17 08:31 EMA 6 Profile Negative (NEGATIVE) 07/20/17 06:38 EMA Nuclear Membr Pat Negative (Negative) 07/14/17 06:59 Anti-Mitochondrial Ab Negative (Negative) 07/19/17 10:03 Anti-Smooth Muscle Ab Negative (Negative) 07/19/17 10:03 Complement C2 2.5 mg/dL (1.6-3.5) 07/19/17 08:31 Complement C4 22.8 mg/dL (14.0-44.0) 07/19/17 08:31 Tot Complement (CH50) >60 U/mL (31-60) H 07/19/17 08:31 RPR Nonreactive (NONREACTIVE) 07/19/17 08:31 Lyme Disease Screen <0.90 index 07/21/17 08:02 Lyme Disease IgG Ab (IFA) Negative (NEGATIVE) 07/21/17 08:02 Lyme Disease IgM Ab Negative (NEGATIVE) 07/21/17 08:02 Cryptococcus Ag Negative (NEGATIVE) 07/19/17 08:31 [place] Encephal IgG 1:32 H 07/20/17 06:38 [place] Encephal IgM <1:16 07/20/17 06:38 Franky Enceph Interp Past infection 07/20/17 06:38 [place] Enceph IgG <1:16 07/20/17 06:38 [place] Enceph IgM <1:16 07/20/17 06:38 E Equine Enceph Interp See note 07/20/17 06:38 [place] Enceph IgG <1:16 07/20/17 06:38 [place] Equ[place] Enceph IgM <1:16 07/20/17 06:38 W Equine Enceph Interp See note 07/20/17 06:38 [place] Encephalitis IgG <1:16 07/20/17 06:38 [place] Encephalitis IgM <1:16 07/20/17 06:38 [place] Encephal Interp See note 07/20/17 06:38 West Nile Virus IgG Ab 2.38 H 07/20/17 06:38 West Nile Virus IgM Ab 0.01 07/20/17 06:38 Hepatitis A IgM Ab Negative (NEGATIVE) 07/19/17 08:31 Hep Bs Antigen Negative (NEGATIVE) 08/15/17 10:08 Hep B Core IgM Ab Negative (NEGATIVE) 07/19/17 08:31 Hepatitis C Antibody Negative (NEGATIVE) 07/19/17 08:31 HSV Source Description Serum 07/14/17 06:59 HSV I IgG Ab 32.20 index H 07/20/17 06:38 HSV II IgG <0.90 index 07/20/17 06:38 HSV I DNA PCR Not detected (Not Detected) 07/14/17 06:59 HSV II DNA PCR Not detected (Not Detected) 07/14/17 06:59 HIV 1&2 Antibody Screen Negative (NEGATIVE) 07/19/17 08:31 Influenza Typ A,B (EIA) Negative for flu a/b (NEGATIVE) 07/18/17 23:18 Ur L.pneumophila Ag (NEGATIVE) 07/18/17 23:18 Mycoplasma pneumon IgM Negative (NEGATIVE) 07/19/17 08:31 Blood Type B POSITIVE 08/02/17 12:15 Antibody Screen Negative 08/02/17 12:15 - Hospital Course Hospital Course: Chief complaint: Right facial droop, slurred speech HPI: 76-year-old male with a history of diabetes, hypertension, hypercholesterolemia , hypothyroidism, history of bronchitis, CAD, status post a CABG 1992, five- vessel bypass also recently had a pacemaker placement 2 weeks ago for symptomatic bradycardia, end-stage renal disease on peritoneal dialysis brought in by the ambulance because of the slurred speech. Patient was complaining of some pain in the right side of the ear for 2-3 days, and also since that he got discharged from the hospital 2 weeks ago he was having some progressive worsening cough. Patient is currently taking antibiotic, he is also having problem in urination, had a cystoscopy. Given antibiotic. But today he woke up this morning, he was getting the paternal dialysis the whole night, around 8:30 AM family noticed that right side of the face droop was noted, also he started having some slurred speech, and was not able to swallow coughing, immediately called ambulance, brought into the emergency room. In the emergency room patient is now having continuous slurring of speech, and also right-sided facial weakness noted. He denies any headache, but complaining of pain over the right side of the jaw noted. Cough also noted, but mostly dry. Family is very concerned about since the dialysis fluid was changes recently he is not having some good improvement. Patient also concerned, and family wanted to have possibility of hemodialysis also. Past medical history: Diabetes, hypertension, hypothyroidism, high cholesterol, CABG, CAD, bronchitis , peritoneal dialysis End-stage renal disease Surgical history: Coronary artery bypass grafting in 1992, five-vessel, prostatectomy, laser surgery, right leg fracture surgery, cataract surgery, also recently had a pacemaker placement Family history significant for heart disease. Recently patient's daughter also had a heart disease. Stent Social history: Nonalcoholic nonsmoker Current medications reviewed Review of system: Patient is having now no headache, but the right-sided facial droop, right- sided patient pain, right ear pain noted, difficulty in swallowing, coughing noted, mild shortness of breath noted, also complaining of some abnormal distention. Some leg swelling. Shaking noted. Patient is moving the all 4 extremities On examination: Vital signs reviewed Mild elevation of the blood pressure noted. Patient is having right-sided facial weakness, also deviation of the tongue noted, and slurred speech present. Chest good air entry bilaterally Regular heart sound Abdomen soft, paternal catheter noted, patient is having 1+ edema. COMMUNICATIONS STRATEGIST alert awake oriented. Slurred speech noted. Right-sided droop noted, also unable to lift the right side eyebrow. Also having increasing sensation on theright side. No visible weakness noted in the lower extremities also upper next immitis. Patient is moving all 4 limbs. Patient's labs reviewed Elevated blood urea nitrogen, creatinine noted. Low sodium level noted. Mild elevation of the WBC noted with the neutrophils Chest x-ray nonspecific, elevation of the diaphragm noted. CT scan of the head showing evidence of frontal lobe hypointensity right frontal lobe, old possibly chronic disease. 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 Patient was earlier seen by emergency room doctor, also discussed with the neurologist, patient is not a candidate for TPA given the recent the surgical interventions. Assessment/recommendation: 76-year-old male with a history of diabetes, hypertension, hypercholesteremia, hypothyroidism, history of bronchitis, CAD, status post CABG, end-stage renal disease on peritoneal dialysis. Patient now admitted with acute right facial droop, and acute dysarthria. 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 Currently medical treatment. Close monitoring the blood pressure. Aspirin was given already. Will continue the aspirin, antiplatelets, anticholesterol medication. Patient will need a paternal dialysis. Will get a nephrology evaluation, close monitoring the blood pressure. Glucose control. Patient is currently agreeing and the family is also considering for dialysis, especially hemodialysis as the family does not want to continue the paternal dialysis at this time. But I explained to the family that after neurologically stable Will discuss with the supervisor propellant charge loading about. Meanwhile will continue the current treatment, neuro watch. GI prophylaxis, DVT prophylaxis and will follow the patient Underlying lower motor neuron type weakness involving the right-sided facial nerve possible. Course in the hospital: Patient was initially admitted to the hospital with a possible acute CVA, code stroke was called, seen by neurologist. As the patient recently got pacemaker, patient has a contraindication for thrombolysis, so he was not given thrombolytic treatment in the emergency room at that time. 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 Initially patient was treated as a code stroke with antiplatelets. But after reviewing it was noted that the patient may have lower motor neuron type facial nerve palsy involving the right side, associated with the ptosis of the right side. During the time patient was receiving peritoneal dialysis, but continued to get the peritoneal dialysis patient was clinically some improvement noted. He was transferred to the floor after 2 days. In the floor patient's mental condition was slowly worsening And over the course of 1 week if his condition got worsening. He was seen by neurologist to continuously. Infectious disease was also called. There was initial part of encephalitis, versus meningitis. But after I spoke to the neurologist it is less likely related to meningitis, and the LP may not give more information. But his mental condition got worse, and he was transferred back to the intensive care unit on 07/22/2017. During the time I also discussed with the supervisor propellant charge loading, we decided to go ahead and do a hemodialysis into the peritoneal dialysis. So the peritoneal dialysis was stopped and the patient received to get hemodialysis from 07/22/2017. But in spite of the hemodialysis his condition was not improving. He continued to receive antibiotic. Physical therapy was started at bedside. He has also receiving medication for possible suspected nonconvulsive seizures. Keppra 250 mg twice a day was given. modofinil 50 mg was given without any improvement. The medication was discontinued. He was also having few episodes of fever. Infection disease consultation continued, patient was given antibiotic as well as anti-herpes treatment intravenously. The patient condition was slowly improving he was becoming more responsive, he was transferred to the floor on 08/02/2017. Over the next 1 week the patient was being managed by the hospitalist. He continued to be improving. He was showing significant improvement in the mental status. He is following commands. He was also participating in physical therapy. He had a left arm AV shunt was done, still currently pending to mature. Currently he is receiving hemodialysis through the right internal jugular vein hemodialysis catheter. Patient also received a PEG tube feeding because of the not able to eat well, failed a swallow evaluation Today I speak to the patient as well as family. Vital signs stable. Chest bilateral good air entry. Regular heart sound noted. No pedal edema. Patient is still receiving Zosyn 3 times a day. He will continue Coreg 25 twice a day Folic acid 1 mg daily Keppra 250 mg twice a day Multivitamin daily PhosLo 667 3 times a day. Famotidine 20 daily. Plavix 75 daily. Procrit 3 times a day Levothyroxine 50 mcg daily Tylenol as needed. Thiamine 100 mg daily. Vitamin C 500 mg daily. Zinc up to 20 mg daily. He will be getting hemodialysis Wednesdays and Fridays. Currently he is doing well. He got hemodialysis today. He will be discharged to rehab today. He will follow-up as an outpatient. Physical therapy needs to be continued. Educated about this problem with the family and will follow the patient Final diagnosis: Severe metabolic encephalopathy, possible viral encephalitis. 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 End-stage renal disease, currently on hemodialysis, he used to be on peritoneal dialysis before. Anemia. Hypertension. Hypothyroidism. Severe osteoarthritis, pedal edema Discharge Exam - Head Exam Head Exam: ATRAUMATIC, NORMAL INSPECTION Discharge Plan - Follow Up Plan Condition: GUARDED Disposition: HOME/ ROUTINE Additional Instructions: follow up at Dr. Tinoco office to get sutures removed in 2 weeks. Referrals: Marcello Davis Jr., MD [Staff Provider] -
[2017-08-16 16:03] VITALS: BP 167/79; PULSE 67; RESP 18; TEMP 98
[2017-08-18] MEDS ORDERED: Epoetin Alfa 10,000 unit/ml Dialysis IV SCH (09:00)
== END 2017-08-16 20:55 | DRG 531 ==
LOC: C.ER 10:02 → C.9E 10:40 → C.6T 11:07 → C.9I 11:42 → C.5S 07-15 20:48 → C.9I 07-22 09:50 → C.6T 08-05 15:32
PROVIDERS: ADMIT Internal Medicine; ATTEND Internal Medicine
PROC: 3E1M39Z Irrigation of Peritoneal Cavity using Dialysate, Percutaneous Approach (ICD-10-PCS; 2017-07-13)
PROC: 0DH68UZ Insertion of Feeding Device into Stomach, Via Natural or Artificial Opening Endoscopic (ICD-10-PCS; 2017-07-17)
PROC: 3E0G76Z Introduction of Nutritional Substance into Upper GI, Via Natural or Artificial Opening (ICD-10-PCS; 2017-07-18)
PROC: 5A1D70Z Performance of Urinary Filtration, Intermittent, Less than 6 Hours Per Day (ICD-10-PCS; 2017-07-22)
PROC: 5A1955Z Respiratory Ventilation, Greater than 96 Consecutive Hours (ICD-10-PCS; 2017-07-22)
PROC: 0BH17EZ Insertion of Endotracheal Airway into Trachea, Via Natural or Artificial Opening (ICD-10-PCS; 2017-07-22)
PROC: 05HM33Z Insertion of Infusion Device into Right Internal Jugular Vein, Percutaneous Approach (ICD-10-PCS; 2017-07-22)
PROC: 5A1D70Z Performance of Urinary Filtration, Intermittent, Less than 6 Hours Per Day (ICD-10-PCS; 2017-07-23)
PROC: 5A1D70Z Performance of Urinary Filtration, Intermittent, Less than 6 Hours Per Day (ICD-10-PCS; 2017-07-25)
PROC: 0WPG33Z Removal of Infusion Device from Peritoneal Cavity, Percutaneous Approach (ICD-10-PCS; 2017-07-31)
PROC: 0JH63XZ Insertion of Tunneled Vascular Access Device into Chest Subcutaneous Tissue and Fascia, Percutaneous Approach (ICD-10-PCS; 2017-07-31)
PROC: 02HV33Z Insertion of Infusion Device into Superior Vena Cava, Percutaneous Approach (ICD-10-PCS; 2017-07-31)
PROC: 03180ZF Bypass Left Brachial Artery to Lower Arm Vein, Open Approach (ICD-10-PCS; principal; 2017-07-31 10:45)
PROC: 5A1D70Z Performance of Urinary Filtration, Intermittent, Less than 6 Hours Per Day (ICD-10-PCS; 2017-08-04)
PROC: 5A1D70Z Performance of Urinary Filtration, Intermittent, Less than 6 Hours Per Day (ICD-10-PCS; 2017-08-06)
PROC: 5A1D70Z Performance of Urinary Filtration, Intermittent, Less than 6 Hours Per Day (ICD-10-PCS; 2017-08-08)
PROC: 5A1D70Z Performance of Urinary Filtration, Intermittent, Less than 6 Hours Per Day (ICD-10-PCS; 2017-08-12)
PROC: 5A1D70Z Performance of Urinary Filtration, Intermittent, Less than 6 Hours Per Day (ICD-10-PCS; 2017-08-16)
DX: A86 Unspecified viral encephalitis (principal); J96.01 Acute respiratory failure with hypoxia; A41.9 Sepsis, unspecified organism; J18.9 Pneumonia, unspecified organism; E87.6 Hypokalemia; E11.22 Type 2 diabetes mellitus with diabetic chronic kidney disease; N18.6 End stage renal disease; I50.9 Heart failure, unspecified; I13.2 Hypertensive heart and chronic kidney disease with heart failure and with stage 5 chronic kidney disease, or end stage renal disease; G92 Toxic encephalopathy; K74.60 Unspecified cirrhosis of liver; R18.8 Other ascites; T85.611A Breakdown (mechanical) of intraperitoneal dialysis catheter, initial encounter; F05 Delirium due to known physiological condition; F32.9 Major depressive disorder, single episode, unspecified; G51.0 Bell's palsy; H91.91 Unspecified hearing loss, right ear; I25.10 Atherosclerotic heart disease of native coronary artery without angina pectoris; H66.91 Otitis media, unspecified, right ear; J34.2 Deviated nasal septum; M19.90 Unspecified osteoarthritis, unspecified site; R62.7 Adult failure to thrive; R13.10 Dysphagia, unspecified; R47.01 Aphasia; T38.0X5A Adverse effect of glucocorticoids and synthetic analogues, initial encounter; F41.9 Anxiety disorder, unspecified; E03.9 Hypothyroidism, unspecified; N40.1 Benign prostatic hyperplasia with lower urinary tract symptoms; R33.8 Other retention of urine; Y81.2 Prosthetic and other implants, materials and accessory general- and plastic-surgery devices associated with adverse incidents; Z79.82 Long term (current) use of aspirin; Z86.73 Personal history of transient ischemic attack (TIA), and cerebral infarction without residual deficits; Z95.1 Presence of aortocoronary bypass graft; I25.2 Old myocardial infarction; Z99.2 Dependence on renal dialysis; Z95.0 Presence of cardiac pacemaker